=== PATIENT | male | born 1955 | race Caucasian/White ===

== ENCOUNTER → 2021-08-21 12:49 | Outpatient (CLI) | payer OTHER, SELFPAY ==
--- NOTE | ~2021-08-21 | MR_ITS ---
EXAMINATION: MR knee LT wo con DATE: 08/21/2021 13:49 INDICATION: Left knee pain. TECHNIQUE: Magnetic resonance imaging (MRI) of the left knee was performed without intravenous contra st. Sequences included coronal PD-weighted FSE, coronal PD-weighted FS FSE, sagittal T2-weighted FSE , sagittal PD-weighted FS FSE and axial PD weighted fat saturated FSE. COMPARISON: None. FINDINGS: Medial compartment: Complex tear of the posterior horn of the medial meniscus. Deep chondral ulceration with subtle regul arity at the articular cortex and mild subarticular edema-like signal changes at the medial tibial pl ateau and along the anterior to central weightbearing medial femoral condyle. Lateral compartment: Lateral meniscus is normal. Articular cartilage is normal. Patellofemoral compartment: Deep chondral fissuring without degenerative subchondral changes at the central to lateral aspect of the lateral patellar facet. Shallow chondral fissuring at the trochlear groove and inferior aspect of the medial trochlea. Ligaments and tendons: Anterior and posterior cruciate ligaments are normal. The medial collateral ligament and fibular taylor ateral ligament complex are normal. Mild distal quadriceps tendinopathy. Patellar tendon is normal. T he visualized medial and lateral hamstring tendons as well as the iliotibial band are normal. Fluid: Physiologic amount of fluid in the joint space. No loose osteochondral bodies identified. Small Yeh 's cyst. Osseous/other: Bone alignment is normal. No fracture or pathologic marrow replacing process. IMPRESSION: 1. Complex tear of the posterior horn of the medial meniscus. 2. 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 2. Mild osteoarthritis with moderate grade chondromalacia in the patellofemoral compartment. 3. Small Yeh's cyst. Reviewed, dictated and finalized at location A. IMPRESSION: 1. Complex tear of the posterior horn of the medial meniscus. 2. Moderate osteoarthritis with extensive high-grade chondromalacia in the medi al compartment. 2. Mild osteoarthritis with moderate grade chondromalacia in the patellofemoral compartment. 3. Small Yeh's cyst.
== END ==
PROVIDERS: PCP Orthopaedic Surgery; Visit Provider Orthopaedic Surgery
DX: S83.232A Complex tear of medial meniscus, current injury, left knee, initial encounter (principal); X58.XXXA Exposure to other specified factors, initial encounter; M17.12 Unilateral primary osteoarthritis, left knee; M71.22 Synovial cyst of popliteal space [Baker], left knee
CPT/HCPCS: 73721

== ENCOUNTER 2021-10-12 08:30 | Outpatient (CLI) | payer OTHER, SELFPAY ==
--- NOTE | 2021-10-12 09:39 | ECG_ITS ---
Measurements Intervals [place] Rate: 71 P: 60 [place]: 152 QRS: 62 QRSD: 94 T: 61 QT: 380 QTc: 415 Interpretive Statements SINUS RHYTHM WITH SINUS ARRHYTHMIA WITHIN NORMAL LIMITS COMPARED TO ECG 05/04/2019 15:17:47 SINUS ARRHYTHMIA NOW PRESENT Electronically Signed On 10-12-2021 16:23:34 CDT by Jeferson Madrigal M.D.
[2021-10-12 10:18] LABS: Basophils Absolute Auto 0.1 K/mm3 (0.0-0.1); Basophils Percent Auto 0.9 % (0.2-1.2); Eosinophils Absolute Auto 0.4 K/mm3 (0-0.3); Eosinophils Percent Auto 4.9 % (0-4.4); Hematocrit 42.6 % (42.0-52.0); Hemoglobin 14.3 g/dL (14.0-18.0); Immature Granulocyte Absolute 0.02 K/mm3 (0.00-0.031); Immature Granulocyte Percent A 0.3 % (0-0.5); Lymphocytes Absolute Auto 2.21 K/mm3 (0.9-3.2); Lymphocytes Percent Auto 27.7 % (18.3-44.2); Mean Corpuscular HGB Conc 33.6 g/dl (32-36); Mean Corpuscular Hemoglobin 32.5 pg (26-34); Mean Corpuscular Volume 96.8 fl (80-100); Monocytes Absolute Auto 0.7 K/mm3 (0.1-0.6); Monocytes Percent Auto 8.7 % (2.6-8.5); Neutrophils Absolute Auto 4.6 K/mm3 (1.3-6.7); Neutrophils Percent Auto 57.5 % (45.5-73.1); Platelet Count Result 271 k/mm3 (150-375)
== END 2021-10-12 08:31 | disposition home or self-care (01) ==
PROVIDERS: PCP Internal Medicine; Visit Provider Orthopaedic Surgery
DX: M17.12 Unilateral primary osteoarthritis, left knee (principal); I10 Essential (primary) hypertension; Z01.818 Encounter for other preprocedural examination
CPT/HCPCS: 36415; 85025; 87081; 93005

== ENCOUNTER 2021-10-26 02:28 | Day surgery (SDC) | payer OTHER, SELFPAY ==
[2021-10-12 08:39] VITALS: BMI 23.3
--- NOTE | 2021-10-12 08:59 | PC.NURSE ---
Report to the Outpatient Waiting Room, entrance under the green pavilion located off [facility], at time _0600 on date __10/26/21 . OR Time: __729 . - You and your visitor will be asked a series of questions to screen for COVID 19 for your protection. - Only one visitor is allowed at this time. - The patient visitor is requested to leave or wait in car when not with patient. - A mask is required within the hospital. Patients may have clear liquids (water, carbonated beverages, clear teas, apple juice) until 3 hours prior to surgery with a maximum of 20 ounces. - No food from midnight until time of surgery - Infants may have breast milk until 4 hours before surgery, infant formula 6 hours prior to surgery. - Children will be allowed to drink immediately following surgery. If applicable, please bring a bottle or sippy cup to assist with drinking. Juice, water, soda, and popsicles are readily available. For infants on formula, please bring formula the day of surgery. Pacifiers are allowed. Take the following medications with a SIP of water the morning of surgery: ___NIFEDIPINE Medications to discontinue per physician __EYE VITAMIN 3 DAYS PRE OP Date to take last dose__10/22/21 Please no make-up, nail turkmen, hairspray, perfume, deodorant, or body powder the day of surgery. No jewelry (including any body piercings) or valuables the day of surgery, leave them at home. Please take a shower or bath the night before, or the morning of, surgery with an antibacterial soap. Wear comfortable, loose fitting clothing. Children are encouraged to wear pajamas. - Jewelry must be removed prior to entering the operating room. Rings and piercings that are not removed may be cut off. - The hospital will not accept responsibility for valuables. - Please leave all valuables, including medications, at home the day of surgery. If you are going home after surgery, a licensed dinkey driver must drive you home. - NO public transportation without another adult. - We recommend that an adult stay with you for 24 hours following discharge. - We also recommend that you do not drive, make important decision, drink alcoholic beverages, or take any drugs that were not prescribed by your health care provider for at least 24 hours after your discharge time. For Pediatric surgeries, we recommend two adults accompany the child home (only one inside the building at this time). Follow any additional instructions given to you from your surgeon. If you or anyone in your household have experienced Covid symptoms in the past week, please notify your surgeon or the nurse liaison at the phone number below for possible testing. VERBAL AND WRITTEN instructions given to __PATIENT and asked if any additional questions and then verbalized understanding. Patient advised to call surgeon office or pre surgery nurse liaison [phone] if any additional questions.
[2021-10-12 09:21] VITALS: BP 161/83; PULSE 79; RESP 18; TEMP 37; O2SAT 96
[2021-10-26] VITALS (18 sets, daily range): BP systolic 107–154; BP diastolic 45–78; PULSE 78–109; RESP 14–19; TEMP 35.9–36.6; O2SAT 90–99
--- NOTE | ~2021-10-26 | XR_ITS ---
EXAMINATION: KNEE ONE/TWO VIEW-RIGHT DATE: 10/26/2021 10:43 INDICATION: Postoperative evaluation following left knee medial unicompartmental arthroplasty TECHNIQUE: Anteroposterior and lateral views of the left knee were obtained. COMPARISON: None. FINDINGS: Left knee medial unicompartmental arthroplasty appears well seated. No fractures identified. Expecte d postoperative subcutaneous and intra-articular gas. IMPRESSION: 1. Left knee medial unicompartmental arthroplasty negative for postoperative purposes. Reviewed, dictated and finalized at location A. IMPRESSION: 1. Left knee medial unicompartmental arthroplasty negative for postoperative pu rposes.
[2021-10-26] MEDS: ACETAMINOPHEN 500 MG TABLET 1000 MG PO ×3 (06:30→21:19)
[2021-10-26] MEDS: LACTATED RINGERS 1,000 ML 30 ML IV CONT ×2 (06:40→10:12)
--- NOTE | 2021-10-26 06:52 | WPDANESEPPF ---
Anes - Initial Pre Proc Eval Procedure: Operation Date: 10/26/21 07:30 Proposed Procedures p Left Unicompartmental Knee Replacement - Krish Moncada MD Date/Time: 10/26/21 06:52 Surgeon: Krish Moncada MD Pre Op Diagnosis: oa left knee Patient Data Age: 65 Gender: M Height: 1.8 m Weight: 79.7 kg Last Vital Signs Temp 36.5 C 10/26/21 06:47 Pulse 80 10/26/21 06:47 Resp 16 10/26/21 06:47 BP 128/65 10/26/21 06:47 Pulse Ox 99 10/26/21 06:47 O2 Del Method Room Air 10/26/21 06:47 Allergies Allergy/AdvReac Type Severity Reaction Status Date / Time aspirin Allergy Intermediate EYES Verified 10/26/21 06:21 SWELLING codeine Allergy Intermediate Nausea Verified 10/26/21 06:21 ephedrine Allergy Intermediate Hives Verified 10/26/21 06:21 pseudoephedrine Allergy Intermediate Hives Verified 10/26/21 06:21 Home Medications Medication Instructions Recorded Confirmed Type lisinopril 40 mg tablet 40 mg PO DAILY #90 tabs 11/24/20 10/26/21 Rx tadalafil 20 mg tablet (Cialis) 20 mg PO DAILY PRN sexual activity 03/06/21 10/26/21 Rx #30 tabs nifedipine 60 mg tablet,extended 60 mg PO DAILY #90 tabs 08/25/21 10/26/21 Rx release atorvastatin 40 mg tablet 40 mg PO DAILY #90 tabs 09/21/21 10/26/21 Rx omeprazole 20 mg capsule,delayed 20 mg PO DAILY #90 caps 09/21/21 10/26/21 Rx release meperidine 50 mg tablet 50 mg PO Q4-6H PRN pain #20 tabs 10/21/21 10/21/21 Rx rivaroxaban 10 mg tablet (Xarelto) 10 mg PO DAILY PE prophylaxis s/p 10/21/21 Rx surgery #42 tabs Patient hx anesthesia problems: none Family hx anesthesia problems: none Results Review: All pre-operative results and documents have been reviewed as part of the pre-operative evaluation. [facility] Past Medical History Medical History Essential (primary) hypertension Hyperlipidemia LDL goal <130 Obstructive sleep apnea CPAP Osteoarthritis of left knee Surgical History Surgical History History of hernia repair History of toe surgery Osteochondral defect of condyle of femur Status post arthroscopy of left knee (05/11/19) Family History Family History Mother Family history of malignant neoplasm of brain Patient's mother is Diabetes mellitus Father Family history of Parkinson's disease Patient's father is Hypertension Heart disease Other Family history of allergic disorder Family history of cardiovascular disease Social History Social History Social History: 6 pack/day Smoking packs per day: 2 Smoking cigarettes per day: 40.0 Years smoked: 15 Smoking pack-years: 30.00 Smoking status: Former smoker Tobacco type: cigarettes Smoking end date: 05/02/88 Alcohol intake: current Drinks per week: 20 Alcohol use details: BEER/COCKTAILS Substance use: never Substance use type: marijuana Last use: 10/12/21 Living arrangements: with family 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 Informed Consent: The patient's anesthetic plan and its attendant risks and benefits were discussed with the patient/family/POA. Questions were solicited and answers provided to the satisfaction o
[2021-10-26] MEDS: TRANEXAMIC ACID 1,000MG/ISO100 1,000 MG/100 ML BAG 200 MG IVPB (07:02)
[2021-10-26] MEDS: SCOPOLAMINE 1.5 MG PATCH TRANSDERM (07:03)
--- NOTE | 2021-10-26 07:26 | WPDHPUPDATE1 ---
History and Physical Update Update Date/Time: 10/26/21 07:26 History and Physical has been reviewed, including an updated exam of the patient. There are NO changes in the patient's condition. Risks, benefits, and alternatives have been discussed and questions answered. Patient agrees to proceed with procedure.
[2021-10-26] MEDS: ceFAZolin 2 GM/D5W 50 ML 2 GM/50 ML BAG IVPB ×3 (07:32→23:34)
--- NOTE | 2021-10-26 07:33 | WPDANESPNB ---
Anes - Peripheral Nerve Block Date/Time: 10/26/21 07:33 I have discussed with the patient/family/POA the placement of a peripheral nerve block for post-operative pain management, including associated risks, benefits, complications, and side effects. Alternative methods of post-operative analgesia were detailed. Questions were solicited and answers provided to the satisfaction of the patient/family/POA. Time-Out: A pre-procedural Time-Out was completed immediately before starting the procedure and confirmed: Patient Identification, Site, Procedure, Patient Position and the Availability of Requisite Equipment. Clinical Indications: Acute post-operative pain management requested by the operative surgeon. Nerve Block Insertion Note Anes-nerve block: adductor canal left Patient position: supine Skin prep: chlorhexidine Needle: 22 gauge, stimulating, insulated echogenic needle. Needle length: 80 mm Technique: ultrasound Technique comment: mid2mg [id number] Injectate: bupivacaine 0.5% with epi 5 mcg/ml (30ml no epi) Observations: tolerated well Complications: none Procedure start time:: 720 Procedure end time:: 727
[2021-10-26] MEDS: ceFAZolin SODIUM 1 GM VIAL IV PUSH (09:31)
--- NOTE | 2021-10-26 10:31 | P.OP_ITS ---
Procedure Note - Detailed Date of Procedure 10/26/21 Pre-op Diagnosis oa left knee Post-op Diagnosis Same Procedure Performed Left knee knee compartment replacement Surgeon Krish Moncada MD Agricultural Extension Educator Emil Gonzales Anesthesia General and Regional Description of Procedure The patient was identified and the proper site identified. In the preop holding area the anesthesia team performed a left lower extremity block. He was then taken to the operating room and transferred to the OR table placing him supine taking care to pad his torso and extremities. After general anesthetic induction and intubation. a nonsterile tourniquet was placed high on the left thigh. The extremity was positioned, prepped, and draped in the usual sterile fashion. The extremity was exsanguinated and the tourniquet was inflated to 300 mmHg remaining up for approximately 72 minutes. An anterior midline incision was made and sharp dissection carried down through the subcutaneous tissue to the extensor mechanism. A modified medial parapatellar arthrotomy was performed. The articular and meniscal cartilage of the lateral compartment was inspected and noted to be in excellent shape. Anterior and posterior cruciate ligaments were in continuity. There were extensive degenerative changes medial compartment and milder patellofemoral changes. The marginal osteophytes were removed from the notch and the medial aspect of the medial femoral condyle, and the remaining meniscal tissue was removed. The femur was sized to a large. With the appropriate spoon and tibial guide, a tibial resection was made. This was sized to A. Using the mill, the flexion and extension gaps were balanced. A trial reduction was undertaken. The range of motion of the knee was noted to be from full extension to 120 ? of flexion with excellent stability through range of motion. The polyethylene insert tracked nicely. The trial components were removed. The real large femur and size A tray for the left knee were cemented into place. The knee was held in about 30? of flexion while the cement cured. The tourniquet was released and excess cement was removed from the joint. Hemostasis was carried out. The knee was flushed with a copious amount of irrigation. After trialing, the appropriate real size four insert for the femoral component was inserted and the stability again assessed. The knee was noted to be stable as it was taken through range of motion. The periarticular tissues were injected with 40 milliliters of 0.5% plain Marcaine and a 3 minutes Betadine bath of the wound was carried out. Surgicel powder was used for additional hemostasis both the deep and superficial to the extensor mechanism. The extensor mechanism was repaired with #2 Vicryl and 0 looped PDS suture, the subcu with 3-0 Monocryl and 3-0 Quill with tissue adhesive the skin. A sterile dressing was applied. The patient tolerated the procedure well, was awakened, extubated, and taken to recovery room in stable condition. Estimated Blood Loss -100.0 Tourniquet Time 72 Drains No Packing No Pathology None sent Complications No immediate complications Condition Stable Disposition PACU
[2021-10-26] MEDS: fentaNYL CITRATE INJ (*CRX) 100 MCG/2 ML VIAL 25 MCG IV PUSH (10:56)
--- NOTE | 2021-10-26 12:27 | ADMGEN ---
This patient, Jeferson Comer, was admitted to Medical Room 243-01. Patient/family oriented to hospital policies and general routines including ID bracelet, bed and alarms, visiting hours, pain management, procedures, bathroom and other care routines, personal items, smoking policy, room service/diet, and visiting hours. Information on how to activate the Rapid Response Team has been discussed. Patient/Family are encouraged to report perceived risks to care and to ask questions if they do not understand what they are told or what they should do. Report received from LUIS Zamora
[2021-10-26] MEDS: SODIUM CHLORIDE 0.9% IV 1,000 ML 125 ML IV CONT (12:30)
--- NOTE | 2021-10-26 13:05 | PC.NURSE ---
1245 pt back from surgery on o2 4l with sat 92%. Pt drowsy but wakes up to voice. Karla Alston CYBER CRIME INVESTIGATOR notified of medical management consult and notified of pt requiring 4l of 02 after surgery.
--- NOTE | 2021-10-26 15:24 | PM.IMCN ---
Assessment and Plan Assessment and plan (1) Status post arthroscopy of left knee: Onset Date: 05/11/19 Code(s): Z98.890 - Other specified postprocedural states Status: Acute Assessment and Plan: Postop day 0 Cefazolin 2 g x 3 bags Pain medication: Celebrex 200 mg p.o. b.i.d. Tylenol 1000 mg p.o. q.8, Demerol 50mg PO Q4H PRN Zofran for nausea vomiting Postop care per Ortho Xarelto 10 mg p.o. daily for DVT PT and OT (2) Arthritis of left knee: Code(s): M17.12 - Unilateral primary osteoarthritis, left knee Status: Chronic Assessment and Plan: See above (3) Obstructive sleep apnea: Code(s): G47.33 - Obstructive sleep apnea (adult) (pediatric) Status: Acute Assessment and Plan: Continue BiPAP CPAP to home setting (4) Hypertension: Code(s): I10 - Essential (primary) hypertension Status: Acute Assessment and Plan: Current blood pressure 126/77 Continue home lisinopril, nifedipine Trend blood pressure Adjust therapy as indicated HPI Data of Consult Consult date: 10/26/21 Requesting Physician: Krish Moncada MD Primary Care Provider: Jonathan Kulkarni MD Consult Narrative Reason for consult: Medical management Narrative: 10/26/21 1530 Jeferson Comer is a 65 year old male with past medical history of hyperlipidemia, GERD, hypertension who was scheduled for an elective total left knee replacement with Dr. Graves today. Patient has had pain for many years and NSAIDs were not doing well. Patient is signed to get the knee replacement. Currently patient feels okay and denies any chest pain, shortness a breath, nausea, vomiting, diarrhea, constipation, weakness or fatigue. Pain is currently patient today8-9/10 and was able to get up to the chair. He also stated that he is only tolerable to Demerol. He also stated that he was having some numbness, but it seems to be resolved at this time. Hospitalist service is being consulted for medical management. Review of Systems Review of Systems: All systems reviewed & are unremarkable except as noted in HPI and below PMFSH Past Medical History Medical History Essential (primary) hypertension Hyperlipidemia LDL goal <130 Obstructive sleep apnea CPAP Osteoarthritis of left knee Surgical History Surgical History History of hernia repair History of toe surgery Osteochondral defect of condyle of femur Status post arthroscopy of left knee (05/11/19) Family History Family History Mother Family history of malignant neoplasm of brain Patient's mother is Diabetes mellitus Father Family history of Parkinson's disease Patient's father is Hypertension Heart disease Other Family history of allergic disorder Family history of cardiovascular disease Social History Social History (Updated 10/26/21 @ 15:50 by SILVIA Rg) Social History: Patient lives with his , who will be his surrogate. 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 he does admit to 3 beers and 3 cocktail. He wishes to be a Full code at this time. 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
[2021-10-26] MEDS: CELECOXIB 200 MG CAPSULE PO (16:43)
[2021-10-26] MEDS: SENNA/DOCUSATE SODIUM TABLET 2 TAB PO (16:43)
[2021-10-27 01:37] VITALS: BP 148/80; PULSE 80; RESP 16; TEMP 36.9; O2SAT 97
[2021-10-27 01:45] VITALS: PULSE 72; RESP 16; O2SAT 97
[2021-10-27 05:17] VITALS: BP 140/69; PULSE 66; RESP 16; TEMP 36.5; O2SAT 97
[2021-10-27 05:43] LABS: Basophils Absolute Auto 0.1 K/mm3 (0.0-0.1); Basophils Percent Auto 0.4 % (0.2-1.2); Eosinophils Percent Auto 0.1 % (0-4.4); Hematocrit 34.3 % (42.0-52.0); Hemoglobin 11.9 g/dL (14.0-18.0); Immature Granulocyte Absolute 0.04 K/mm3 (0.00-0.031); Immature Granulocyte Percent A 0.3 % (0-0.5); Lymphocytes Absolute Auto 1.74 K/mm3 (0.9-3.2); Lymphocytes Percent Auto 14.3 % (18.3-44.2); Mean Corpuscular HGB Conc 34.7 g/dl (32-36); Mean Platelet Volume 9.6 fl (7.4-10.4); Monocytes Absolute Auto 1.4 K/mm3 (0.1-0.6); Monocytes Percent Auto 11.8 % (2.6-8.5); Neutrophils Absolute Auto 8.9 K/mm3 (1.3-6.7); Neutrophils Percent Auto 73.1 % (45.5-73.1); Platelet Count Result 201 k/mm3 (150-375); Red Blood Count 3.61 M/mm3 (4.6-6.20); Red Cell Distribution Width 12.7 % (11.5-14.5); White Blood Count 12.2 K/mm3 (4.5-10.0)
[2021-10-27 05:50] LABS: Anion Gap 6 mmol/L (8-16); Blood Urea Nitrogen 19 mg/dL (9-20); Calcium 8.1 mg/dL (8.4-10.2); Carbon Dioxide 22 mmol/L (22-30); Chloride 108 mmol/L (98-107); Estimated CRCL calculation 69 ml/min; Estimated Glomerular Filt Rate > 60; Glucose 112 mg/dL (65-110); Magnesium 2.1 mg/dL (1.6-2.3); Sodium 136 mmol/L (137-145)
[2021-10-27] MEDS: ACETAMINOPHEN 500 MG TABLET 1000 MG PO (05:53)
--- NOTE | 2021-10-27 07:28 | PM.DS ---
DS: Admitting Diagnosis Discharge Date October 27, 2021 Admitting Diagnosis Osteoarthritis left knee DS: Discharge Diagnosis Discharge Diagnosis (1) S/P left unicompartmental knee replacement: Code(s): Z96.652 - Presence of left artificial knee joint Status: Acute Assessment and Plan: Plan discharge home today. Follow-up will be in two weeks. Instructions reviewed in detail with patient today and his yesterday. DS: Summary Hospital Course Reason for hospitalization: Observation after outpatient procedure. Hospital Course: Following the patient's surgery he was admitted to the floor. He had therapy initiated. Has made good progress and is going to be discharged home postop day one Status at Discharge Functional status at discharge: uses cane/walker Overall status at discharge: patient is not back to baseline Time Spent with Patient Time attestation: Total time spent providing and/or coordinating discharge services: Exam Const: General: cooperative, alert and awake Orientation/consciousness: patient oriented x3 HENMT: Head: normal to inspection Ears: hearing grossly normal bilaterally Resp: Effort & Inspection: able to speak in complete sentences GI: Inspection: non-distended Neuro: General: patient oriented x3 Extrem: Other: Exam of the left knee shows very little swelling. Wound is dry. Grossly neurovascular status left lower extremity intact however exam limited somewhat secondary to discomfort. Calves negative. Psych: Mental Status: mental status grossly normal DS: Data Data Completed and Pending Labs on day of discharge: Labs from last 24 hours 10/27/21 10/27/21 10/26/21 05:03 05:03 06:31 WBC 12.2 H RBC 3.61 L Hgb 11.9 L Hct 34.3 L MCV 95.0 MCH 33.0 MCHC 34.7 RDW 12.7 Plt Count 201 MPV 9.6 Immature Gran % (Auto) 0.3 Neut % (Auto) 73.1 Lymph % (Auto) 14.3 L [place] % (Auto) 11.8 H Eos % (Auto) 0.1 Baso % (Auto) 0.4 Lymph # (Auto) 1.74 [place] # (Auto) 1.4 H Eos # (Auto) 0.0 Baso # (Auto) 0.1 Abs Immat Gran (auto) 0.04 H Absolute Neuts (auto) 8.9 H Absolute Nucleated RBC 0.0 Nucleated RBC % 0.0 Sodium 136 L Potassium 4.0 Chloride 108 H Carbon Dioxide 22 Anion Gap 6 L BUN 19 Creatinine 1.00 Estim Creat Clear Calc 69 Estimated GFR > 60 Glucose 112 H Calcium 8.1 L Magnesium 2.1 Blood Type A Positive Antibody Screen Negative Labs reviewed. Discharge Plan Discharge Patient Disposition: Home, Self-Care Discharge Instructions: Remove the Scopolamine patch that was placed behind your left ear in 72 hours or less. Wash your hands after touching. 3 times daily for 20 minutes each time, reclining in bed with ice packs over the incision and a pillow underneath the calf of the affected leg, not under the knee. Your wound is glued so it is okay to remove the dressing, get into the shower and get the wound wet starting tomorrow. Be sure to read through all the information that came from a my office and the hospital. Most of the answers you will need can be found that material. Call the office with any questions that you cannot find answers to, or concerns you may have. The Xarelto prescription is for six weeks. After that, you do not need to use any blood thinner. Please call [facility] at as soon as possible to arrange for/verify your follow-up appointment to be seen in 2 weeks. Also, call the office with any orthopedic/surgical related questions prior to follow-up. Be sure to get up and move around several times daily but do not overdo it. Take the arthritis formula Tylenol 650 mg tablet on an 8 hour schedule. A good 8 hour schedule is: 6:00 a.m., 2:00 p.m., 10:00 p.m. you may take the prescribed pain medication along with the Tylenol; it is not to be taken instead of the Tylenol. I would like for you to take the Tylenol on
[2021-10-27] MEDS: CELECOXIB 200 MG CAPSULE PO (08:31)
[2021-10-27] MEDS: ceFAZolin 2 GM/D5W 50 ML 2 GM/50 ML BAG IVPB (08:31)
[2021-10-27] MEDS: NIFEdipine 30 MG TAB.ER.24 60 MG PO (08:32)
[2021-10-27] MEDS: PANTOPRAZOLE 40 MG TABLET PO (08:32)
[2021-10-27] MEDS: RIVAROXABAN 10 MG TABLET PO (08:32)
[2021-10-27] MEDS: ATORVASTATIN 40 MG TABLET PO (08:32)
[2021-10-27] MEDS: SENNA/DOCUSATE SODIUM TABLET 2 TAB PO (08:32)
[2021-10-27] MEDS: polyethylene glycoL 3350 17 GM POWD.PACK PO (08:33)
[2021-10-27] MEDS: lisinopriL 20 MG TABLET 40 MG PO (08:33)
--- NOTE | 2021-10-27 08:45 | PM.IMPN ---
Progress Note: A&P Assessment and Plan (1) Status post arthroscopy of left knee: Onset Date: 05/11/19 Code(s): Z98.890 - Other specified postprocedural states Status: Acute Assessment and Plan: Postop day 1 Cefazolin 2 g x 3 bags Pain medication: Celebrex 200 mg p.o. b.i.d. Tylenol 1000 mg p.o. q.8, Demerol 50mg PO Q4H PRN Zofran for nausea vomiting Postop care per Ortho Xarelto 10 mg p.o. daily for DVT PT and OT (2) Arthritis of left knee: Code(s): M17.12 - Unilateral primary osteoarthritis, left knee Status: Chronic Assessment and Plan: See above (3) Obstructive sleep apnea: Code(s): G47.33 - Obstructive sleep apnea (adult) (pediatric) Status: Acute Assessment and Plan: Continue BiPAP CPAP to home setting (4) Hypertension: Code(s): I10 - Essential (primary) hypertension Status: Acute Assessment and Plan: Current blood pressure 140/69 Continue home lisinopril, nifedipine Trend blood pressure Adjust therapy as indicated (5) Peripheral neuropathy: Code(s): G62.9 - Polyneuropathy, unspecified Status: Acute Assessment and Plan: Complaints of numbness and tingling on the left toes Will start gabapentin for control Seems to be getting better Time Spent With Patient Time with patient: Greater than 35 minutes Subjective Date/time seen: 10/27/21 0845 Interval history: 10/27/21844 Patient seems to be doing well today. He was up walking around. He was doing okay on his feet. He denies any chest pain, shortness a breath, nausea, vomiting, diarrhea, constipation. Patient did say that he was having a little bit as chills and shivers however he does feel better today. Pain is a 2/10 and he states that he still has little bit numbness in the left toe however it is barely anything compared to yesterday. 10/26/21 2530 Jeferson Comer is a 65 year old male with past medical history of hyperlipidemia, GERD, hypertension who was scheduled for an elective total left knee replacement with Dr. Graves today.? Patient has had pain for many years and NSAIDs were not doing well.? Patient is signed to get the knee replacement.? Currently patient feels okay and denies any chest pain, shortness a breath, nausea, vomiting, diarrhea, constipation, weakness or fatigue.? Pain is currently patient today8-01/09 and was able to get up to the chair.? He also stated that he is only tolerable to Demerol.? He also stated that he was having some numbness, but it seems to be resolved at this time.? Review of Systems Review of Systems: All systems reviewed & are unremarkable except as noted in HPI and below Exam Const: General: cooperative, healthy appearing, no acute distress, well developed, alert and awake Nutritional Appearance: well nourished Orientation/consciousness: patient oriented x3 Limitations: no limitations HENMT: Head: normal to inspection Ears: hearing grossly normal bilaterally General nose exam: Normal external nose present Mouth: Yes Normal oral and palatal mucosa present, Yes lip normal and Yes tongue normal Teeth and gingiva: abnormal tooth and associated gingiva and poor dentition Eyes: General: appearance normal, both eyes and all related structures Neck: Neck: normal visual inspection, full ROM, trachea midline and supple Chest: Chest palpation & inspection: normal inspection of the chest Resp: Effort & Inspection: normal respiratory effort and able to speak in complete sentences Auscultation: clear to auscultation bilaterally Cardio: Jugular venous distension: no JVD Rate: regular rate Rhythm: regular rhythm Heart sounds: S1 normal heart sound present and S2 normal heart sound present Peripheral pulses: Peripheral pulses 2+ throughout GI: Inspection: normal to inspection Auscultation: normal bowel sounds Skin: General skin exam: normal color and no
[2021-10-27 09:37] VITALS: BP 149/74; PULSE 57; RESP 18; TEMP 36.1; O2SAT 97
--- NOTE | 2021-10-27 11:40 | WPDANESPN ---
Anes - Prog Note Post-Op Date/Time: 10/27/21 11:40 Cardiovascular status: normal Respiratory status: normal Airway patency: baseline Mental status: baseline Post-Op hydration status: normal Vital Signs: Last Vital Signs Temp 36.1 C L 10/27/21 09:37 Pulse 57 L 10/27/21 09:37 Resp 18 10/27/21 09:37 BP 149/74 H 10/27/21 09:37 Pulse Ox 97 10/27/21 09:37 O2 Del Method Room Air 10/27/21 08:00 O2 Flow Rate 4 10/26/21 12:33 Pain Score (VAS): 07/09 I/O: Intake & Output 07/0910/26/21 10/27/21 10/27/21 23:59 07:59 15:59 Intake Total 50 450 580 Output Total 800 Balance -750 450 580 Laboratory Tests 10/27/21 05:03 10/27/21 05:03 10/27/21 10/27/21 05:03 05:03 WBC 12.2 H RBC 3.61 L Hgb 11.9 L Hct 34.3 L MCV 95.0 MCH 33.0 MCHC 34.7 RDW 12.7 Plt Count 201 MPV 9.6 Immature Gran % (Auto) 0.3 Neut % (Auto) 73.1 Lymph % (Auto) 14.3 L [place] % (Auto) 11.8 H Eos % (Auto) 0.1 Baso % (Auto) 0.4 Lymph # (Auto) 1.74 [place] # (Auto) 1.4 H Eos # (Auto) 0.0 Baso # (Auto) 0.1 Abs Immat Gran (auto) 0.04 H Absolute Neuts (auto) 8.9 H Absolute Nucleated RBC 0.0 Nucleated RBC % 0.0 Sodium 136 L Potassium 4.0 Chloride 108 H Carbon Dioxide 22 Anion Gap 6 L BUN 19 Creatinine 1.00 Estim Creat Clear Calc 69 Estimated GFR > 60 Glucose 112 H Calcium 8.1 L Magnesium 2.1 Post-procedural complaints: none Patient Feedback: Patient satisfied with anesthetic care.
== END 2021-10-27 12:46 | disposition home or self-care (01) ==
LOC: ANHSURGERY 06:56 → ANH2MED 11:53
PROVIDERS: PCP Internal Medicine; Visit Provider Orthopaedic Surgery
PROC: (CPT 27446; principal; 2021-10-26 07:30)
DX: M17.12 Unilateral primary osteoarthritis, left knee (principal); G62.9 Polyneuropathy, unspecified; G89.18 Other acute postprocedural pain; G47.33 Obstructive sleep apnea (adult) (pediatric); I10 Essential (primary) hypertension; E78.5 Hyperlipidemia, unspecified; Z87.891 Personal history of nicotine dependence; F12.90 Cannabis use, unspecified, uncomplicated
CPT/HCPCS: 27446; 64447; 36415; 73560; 80048; 83735; 85025; 86850; 86900; 86901; 87081; 93005; 97110; 97116; 97161; 97165; 97530; 97535; A9270; C1713; C1776; J0171; J0690; J1100; J1170; J2250; J2270; J2370; J2405; J2704; J2795; J3010; J7030; J7120

== ENCOUNTER 2021-11-05 14:47 | Emergency (ER) | payer OTHER, SELFPAY ==
--- NOTE | ~2021-11-05 | XR_ITS ---
EXAMINATION: XR knee LT 3V DATE: 11/05/2021 17:04 INDICATION: Postoperative right knee pain TECHNIQUE: Four views of the left knee were obtained on five radiographs. COMPARISON: 10/26/2021 FINDINGS: There are changes of unicompartmental arthroplasty in the medial left knee. Alignment is un changed. There is a large joint effusion. There is increased anterior soft tissue swelling of the kne e. There is moderate osteoarthritis of the patellofemoral compartment. IMPRESSION: 1. Postsurgical changes with large knee joint effusion and increased anterior soft tissue swelling of the knee. Reviewed, dictated and finalized at location B. IMPRESSION: 1. Postsurgical changes with large knee joint effusion and increased anterior s oft tissue swelling of the knee.
--- NOTE | ~2021-11-05 | CT_ITS ---
EXAMINATION: CT abdomen pelvis w con INDICATION: Right upper quadrant pain TECHNIQUE: Computed tomographic images of the abdomen and pelvis were obtained after the administrati on of 100 cc of Omnipaque 300 intravenous contrast. The dose-length product (DLP) was 422.41 mGy-cm. Automated exposure control and iterative reconstruction technique were employed. COMPARISON: None available FINDINGS: Minimal dependent atelectasis is present in the lung bases. The heart size is normal. The l iver, spleen, pancreas, gallbladder, and adrenal glands are normal. There is a [address] one in the upper pole of the left kidney. Hypoattenuating lesions in the kidneys, measuring up to 5 m m on the left, are too small to characterize but likely represent cysts. There is calcified atheroscl erosis of the aorta and many of the other arteries. There is colonic diverticulosis. There is [place] fat stranding adjacent to the distal sigmoid colon no free intraperitoneal gas is identified. Ther e is no perisigmoid abscess. There is severe lumbar spondylosis. IMPRESSION: 1. Acute sigmoid diverticulitis, uncomplicated. Reviewed, dictated and finalized at location B.
[2021-11-05 14:52] VITALS: BP 163/68; PULSE 100; RESP 20; TEMP 36.6; O2SAT 100
--- NOTE | 2021-11-05 14:56 | ECG_ITS ---
Measurements Intervals [place] Rate: 92 P: 53 OR: 135 QRS: 58 QRSD: 90 T: 75 QT: 357 QTc: 443 Interpretive Statements SINUS RHYTHM BASELINE ARTIFACT- I, II, III, AVR, AVL NORMAL ECG Electronically Signed On 11-05-2021 15:17:24 CDT by Dawood Luna D.O.
--- NOTE | 2021-11-05 15:36 | ED.NAVMDI ---
HPI - Nausea/Vomiting/Diarrhea General Chief complaint: Nausea/Vomiting/Diarrhea Stated complaint: fever, chills, vomiting Time Seen by Provider: 11/05/21 15:15 History of Present Illness HPI Narrative: 65-year-old male presents to the emergency room for gradual onset of abdominal cramping and associated with nausea and vomiting. Patient states that he has had multiple episodes of nonbloody and bilious vomiting since this morning. Reports abdominal pain is in the right upper quadrant and does not radiate. Denies fever patient states that he has had total left knee replacement last week. Related Data Allergies Allergy/AdvReac Type Severity Reaction Status Date / Time aspirin Allergy Intermediate EYES Verified 11/05/21 15:26 SWELLING codeine Allergy Intermediate Nausea Verified 11/05/21 15:26 ephedrine Allergy Intermediate Hives Verified 11/05/21 15:26 pseudoephedrine Allergy Intermediate Hives Verified 11/05/21 15:26 Review of Systems Review of Systems: CONSTITUTIONAL: Denies fever, chills, or sweats. EYES: Denies visual changes, redness, or discharge. ENT: Denies rhinorrhea, congestion, sore throat, or otalgia. CARDIOVASCULAR: Denies chest pain, palpitations, or edema. RESPIRATORY: Denies cough or dyspnea. GASTROINTESTINAL: Reports abdominal pain, and nausea/vomiting, GENITOURINARY: Denies dysuria or hematuria. SKIN: Denies rash or itching. MUSCULOSKELETAL: Denies back pain, joint pain, or myalgia. NEUROLOGIC: Denies headache, numbness, dizziness, or weakness. PSYCHIATRIC: Denies anxiety or depression. [facility] Past Medical History Medical History Essential (primary) hypertension Hyperlipidemia LDL goal <130 Obstructive sleep apnea CPAP Osteoarthritis of left knee Surgical History Surgical History History of hernia repair History of toe surgery Osteochondral defect of condyle of femur S/P left unicompartmental knee replacement October 26, 2021 Status post arthroscopy of left knee (05/11/19) Family History Family History Mother Family history of malignant neoplasm of brain Patient's mother is Diabetes mellitus Father Family history of Parkinson's disease Patient's father is Hypertension Heart disease Other Family history of allergic disorder Family history of cardiovascular disease Social History Social History Social History: Patient lives with his , who will be his surrogate. 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 he does admit to 3 beers and 3 cocktail. He wishes to be a Full code at this time. Smoking packs per day: 2 Smoking cigarettes per day: 40.0 Years smoked: 15 Smoking pack-years: 30.00 Smoking status: Former smoker Tobacco type: cigarettes Smoking end date: 05/02/88 Alcohol intake: current Drinks per week: 20 Alcohol use details: BEER/COCKTAILS Substance use: current Substance use type: marijuana Last use: 10/12/21 Additional occupation/education comments: [employer] Gender identity (if verbalized by the patient): Male Sexual Orientation (if Verbalized by the Patient): Straight or Heterosexual Spiritual care concerns: Yes Agree to blood products: Yes Exam Narrative: GENERAL: Well-appearing, well-nourished, no physical limitations, and in no acute distress. HEAD: Normocephalic, atraumatic. EYES: Conjunctivae normal, PERRLA and EOMI. CHEST: Clear to auscultation. No respiratory distress. No wheezes rales or rhonchi. No tenderness. HEART: Regular rate and rhythm. No murmur heard. Normal peripheral pulses. ABDOMEN: Soft, right upper quadrant tenderness, nondistended, normal active bowel sounds. EXTREMITIES: Normal range of motion. No edema. No clubbing or cyanosis. left knee: Well approximated linear surgical w
[2021-11-05] MEDS: ONDANSETRON INJ 4 MG/2 ML VIAL IV PUSH (15:47)
[2021-11-05] MEDS: SODIUM CHLORIDE 0.9% IV 1,000 ML 999 ML IV CONT ×2 (15:48→17:45)
[2021-11-05 15:57] LABS: Basophils Absolute Auto 0.1 K/mm3 (0.0-0.1); Basophils Percent Auto 0.4 % (0.2-1.2); Eosinophils Percent Auto 0.1 % (0-4.4); Hematocrit 38.4 % (42.0-52.0); Hemoglobin 13.1 g/dL (14.0-18.0); Immature Granulocyte Absolute 0.11 K/mm3 (0.00-0.031); Immature Granulocyte Percent A 0.6 % (0-0.5); Lymphocytes Absolute Auto 1.71 K/mm3 (0.9-3.2); Lymphocytes Percent Auto 9.5 % (18.3-44.2); Mean Corpuscular HGB Conc 34.1 g/dl (32-36); Mean Corpuscular Hemoglobin 32.2 pg (26-34); Mean Corpuscular Volume 94.3 fl (80-100); Mean Platelet Volume 9.2 fl (7.4-10.4); Monocytes Absolute Auto 1.3 K/mm3 (0.1-0.6); Monocytes Percent Auto 7.4 % (2.6-8.5); Neutrophils Absolute Auto 14.8 K/mm3 (1.3-6.7); Platelet Count Result 438 k/mm3 (150-375); Red Blood Count 4.07 M/mm3 (4.6-6.20); Red Cell Distribution Width 12.3 % (11.5-14.5); White Blood Count 18.1 K/mm3 (4.5-10.0)
[2021-11-05 16:07] LABS: Lactic Acid Reflex 1.3 mmol/L (0.7-2.0)
[2021-11-05 16:46] LABS: Alanine Aminotransferase 32 U/L (6-50); Albumin Level 4.3 g/dL (3.5-5.1); Alkaline Phosphatase 221 U/L (38-126); Anion Gap 11 mmol/L (8-16); Aspartate Amino Transferase 23 U/L (17-59); Bilirubin,Total 0.9 mg/dL (0.2-1.3); Blood Urea Nitrogen 19 mg/dL (9-20); Calcium 9.2 mg/dL (8.4-10.2); Carbon Dioxide 21 mmol/L (22-30); Chloride 107 mmol/L (98-107); Estimated CRCL calculation 69 ml/min; Estimated Glomerular Filt Rate > 60; Glucose 132 mg/dL (65-110); Lipase 55 U/L (23-300); Potassium 3.9 mmol/L (3.4-5.0); Sodium 139 mmol/L (137-145)
[2021-11-05 17:05] LABS: SARS-CoV-2 RNA PCR Negative
[2021-11-05] MEDS: diphenhydrAMINE HCl INJ 50 MG/ML VIAL 25 MG IV PUSH (17:41)
[2021-11-05] MEDS: METOCLOPRAMIDE HCL INJ 10 MG/2 ML VIAL IV PUSH (17:41)
[2021-11-05] MEDS: metroNIDAZOLE 500 MG/ISO 100ML 500 MG/100 ML BAG 100 MG IVPB (17:46)
[2021-11-05 18:51] VITALS: BP 148/84; PULSE 94; RESP 16; O2SAT 99
== END 2021-11-05 19:15 | disposition home or self-care (01) ==
PROVIDERS: Emergency Provider Nurse Practitioner Family; PCP Internal Medicine
DX: K57.32 Diverticulitis of large intestine without perforation or abscess without bleeding (principal); Z20.822 Contact with and (suspected) exposure to COVID-19; I10 Essential (primary) hypertension; E78.5 Hyperlipidemia, unspecified; G47.33 Obstructive sleep apnea (adult) (pediatric); M17.12 Unilateral primary osteoarthritis, left knee; Z87.891 Personal history of nicotine dependence; Z96.652 Presence of left artificial knee joint
CPT/HCPCS: 36415; 73562; 74177; 80053; 83605; 83690; 85025; 93005; 96361; 96365; 96367; 96375; 99284; C9803; J0696; J1200; J2405; J2765; J7030; Q9967; U0003; U0005

== ENCOUNTER 2022-02-10 09:22 | Emergency (ER) | payer OTHER, SELFPAY ==
[2022-02-10 09:26] VITALS: BP 132/61; PULSE 96; RESP 19; TEMP 36.7; O2SAT 99
--- NOTE | 2022-02-10 09:52 | ED.GIBLEED ---
HPI - GI Bleed General Chief complaint: GI Bleed Stated complaint: pcp sent - blood in stool x 6 days Time Seen by Provider: 02/10/22 09:30 Source: patient and RN notes reviewed Mode of arrival: ambulatory Limitations: no limitations History of Present Illness HPI Narrative: This is a 66 year old male who presents for evaluation of rectal bleeding. He states he has 3-4 bowel movements per day. He states his first bowel movement every day is firm, and he has noticed bright red blood in toile each time. His other bowel movements afterwards after soft to watery, but he does not see blood after those bowel movements. He reports intermittent mid abdominal pain that occurs in the morning before his bowel movements, and it improves. He reports a diagnosis of a GI issue but he has not followed with GI in decades. He reports normal colonoscopy 2 years ago. He denies fever, chills, nausea, vomiting or dizziness. Related Data Allergies Allergy/AdvReac Type Severity Reaction Status Date / Time aspirin Allergy Intermediate EYES Verified 02/10/22 09:31 SWELLING ephedrine Allergy Intermediate Hives Verified 02/10/22 09:31 pseudoephedrine Allergy Intermediate Hives Verified 02/10/22 09:31 Review of Systems Review of Systems: All systems reviewed & are unremarkable except as noted in HPI and below PMFSH Past Medical History Medical History Essential (primary) hypertension Hyperlipidemia LDL goal <130 Obstructive sleep apnea CPAP Osteoarthritis of left knee Surgical History Surgical History History of hernia repair History of toe surgery Osteochondral defect of condyle of femur S/P left unicompartmental knee replacement October 26, 2021 Status post arthroscopy of left knee (05/11/19) Family History Family History Mother Family history of malignant neoplasm of brain Patient's mother is Diabetes mellitus Father Family history of Parkinson's disease Patient's father is Hypertension Heart disease Other Family history of allergic disorder Family history of cardiovascular disease Social History Social History Social History: Patient lives with his , who will be his surrogate. 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 he does admit to 3 beers and 3 cocktail. He wishes to be a Full code at this time. 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 [employer] Gender identity (if verbalized by the patient): Male Sexual Orientation (if Verbalized by the Patient): Straight or Heterosexual Spiritual care concerns: Yes Agree to blood products: Yes Exam Const: General: no acute distress and alert Nutritional Appearance: well nourished Orientation/consciousness: patient oriented x3 Limitations: no limitations HENMT: Head: normal to inspection Eyes: EOM: EOMs intact bilaterally Resp: Effort & Inspection: normal respiratory effort Auscultation: clear to auscultation bilaterally Cardio: Rate: regular rate Rhythm: regular rhythm Heart sounds: no murmurs GI: GI Palp: Yes Soft to palpation, Yes Tenderness to palpation present (GI), No Guarding due to palpation present (GI) and No Rigid due to palpation Auscultation: normal bowel sounds Other: small external hemorrhoids present, but no bleeding, stool is brown and heme negative Skin: General skin exam: normal color Rashes: no rashes Wounds: no wounds Neuro: Gener
[2022-02-10 10:06] VITALS: BP 120/60; BP 127/75; PULSE 81; PULSE 97
[2022-02-10 10:07] VITALS: BP 146/76; PULSE 85; RESP 15; O2SAT 97
[2022-02-10 10:08] LABS: Basophils Absolute Auto 0.1 K/mm3 (0.0-0.1); Basophils Percent Auto 1.3 % (0.2-1.2); Eosinophils Absolute Auto 1.1 K/mm3 (0-0.3); Eosinophils Percent Auto 10.9 % (0-4.4); Hematocrit 42.8 % (42.0-52.0); Hemoglobin 14.5 g/dL (14.0-18.0); Immature Granulocyte Absolute 0.04 K/mm3 (0.00-0.031); Immature Granulocyte Percent A 0.4 % (0-0.5); Lymphocytes Absolute Auto 3.11 K/mm3 (0.9-3.2); Lymphocytes Percent Auto 31.9 % (18.3-44.2); Mean Corpuscular HGB Conc 33.9 g/dl (32-36); Mean Corpuscular Hemoglobin 31.9 pg (26-34); Mean Corpuscular Volume 94.1 fl (80-100); Mean Platelet Volume 9.4 fl (7.4-10.4); Monocytes Percent Auto 10.3 % (2.6-8.5); Neutrophils Absolute Auto 4.4 K/mm3 (1.3-6.7); Neutrophils Percent Auto 45.2 % (45.5-73.1); Platelet Count Result 320 k/mm3 (150-375); Red Blood Count 4.55 M/mm3 (4.6-6.20); White Blood Count 9.8 K/mm3 (4.5-10.0)
[2022-02-10 10:19] LABS: Alanine Aminotransferase 27 U/L (6-50); Albumin Level 4.5 g/dL (3.5-5.1); Alkaline Phosphatase 119 U/L (38-126); Anion Gap 14 mmol/L (8-16); Aspartate Amino Transferase 26 U/L (17-59); Bilirubin,Total 0.6 mg/dL (0.2-1.3); Blood Urea Nitrogen 17 mg/dL (9-20); Calcium 8.7 mg/dL (8.4-10.2); Carbon Dioxide 21 mmol/L (22-30); Chloride 105 mmol/L (98-107); Estimated CRCL calculation 58 ml/min; Estimated Glomerular Filt Rate > 60; Glucose 155 mg/dL (65-110); Potassium 3.7 mmol/L (3.4-5.0); Sodium 140 mmol/L (137-145)
[2022-02-10 10:31] LABS: INR 0.9
[2022-02-10 10:32] LABS: Partial Thromboplastin Time 25.3 SECONDS (22.3-36.8)
[2022-02-10 11:34] VITALS: BP 114/70; PULSE 75; RESP 26; O2SAT 98
[2022-02-10 12:21] VITALS: BP 142/75; PULSE 80; RESP 12; O2SAT 100
== END 2022-02-10 13:11 | disposition home or self-care (01) ==
PROVIDERS: Emergency Provider General Practice; PCP Internal Medicine
DX: K64.4 Residual hemorrhoidal skin tags (principal); K62.5 Hemorrhage of anus and rectum; I10 Essential (primary) hypertension; E78.5 Hyperlipidemia, unspecified; M17.12 Unilateral primary osteoarthritis, left knee; G47.33 Obstructive sleep apnea (adult) (pediatric); Z96.652 Presence of left artificial knee joint; Z87.891 Personal history of nicotine dependence
CPT/HCPCS: 36415; 80053; 85025; 85610; 85730; 86850; 86900; 86901; 99283

== ENCOUNTER 2023-01-20 08:58 | Outpatient (CLI) | payer MEDICARE, OTHER, SELFPAY ==
--- NOTE | 2023-02-08 16:30 | WPDSLEEPSTUD ---
Sleep Study Date of Study: 01/20/23 Ordering Provider: Elton Ann, DROP WORKER Interpreting Physician: Bindu Lawler, DO Sleep Study Type: Split Polysomnogram Height: 1.8 m Weight: 79.379 kg Body Mass Index: 24.4 Neck Circumference (inches): 16 [place]: 0 Reason for Sleep Study Needs to re-qualify to get a new CPAP machine Sleep History The patient is a 67-year-old male with hypertension, hyperlipidemia, GERD, erectile dysfunction and previously diagnosed sleep apnea had a sleep study ordered by his ENT physician to re-qualify for PAP therapy. The patient constantly awakens from sleep short of breath. He denies awakening at night with heartburn, belching or cough. He constantly snores loudly enough that others complain. He rarely has trouble sleeping when he has a cold. He frequently wakes up gasping for air throughout the night. He constantly has breathing problems at night observed by himself or others. He denies sweating excessively at night. He denies having heart palpitations or irregular heartbeats during the night. He rarely falls asleep during the day but never while driving. He denies sleep paralysis and cataplexy. He denies having trouble at school or work due to sleepiness. He constantly experiences vivid dreamlike scenes upon awakening or falling asleep. He denies feeling afraid of going to sleep. He rarely has nightmares or remembers his dreams. He occasionally has thoughts racing through his mind. He denies feeling sad, depressed or anxious. He occasionally notices parts of his body jerk. He frequently kicks during the night. He denies having crawling and aching feelings in his legs. He occasionally has leg pain during the night. He rarely grinds his teeth during sleep but never awakens with morning jaw pain. He is constantly bothered by pain during the day and frequently awakened by pain during the night. He rarely wakes up feeling stiff in the morning. He rarely wakes up with sore or achy muscles. He rarely wakes up with pain in the neck, spine or other joints. He goes to bed at 9:00 p.m. on both weekdays and weekends. He can fall asleep relatively quickly. He wakes up twice throughout the night to urinate and is able to fall back asleep relatively quickly. He wakes up at 8:00 a.m. on both weekdays and weekends. He typically gets 9 hours of sleep per night. He does not stay in bed long after waking up in the morning. He currently lives with his . He denies consuming any caffeinated beverages within 2 hours of bedtime. He denies engaging in physical exercise before bedtime. He will watch television before falling asleep. He denies taking naps in afternoon or the evening. He denies consuming caffeinated beverages throughout the day. He quit smoking cigarettes 30 years ago. He will consume alcoholic beverages. [facility] Past Medical History Medical History Essential (primary) hypertension Hyperlipidemia LDL goal <130 Obstructive sleep apnea CPAP Osteoarthritis of left knee Surgical History Surgical History History of hernia repair History of toe surgery Osteochondral defect of condyle of femur S/P left unicompartmental knee replacement October 26, 2021 Status post arthroscopy of left knee (05/11/19) Family History Family History Mother Family history of malignant neoplasm of brain Patient's mother is Diabetes mellitus Father Family history of Parkinson's disease Patient's father is Hypertension Heart disease Other Family history of allergic disorder Family history of cardiovascular disease Social History Social History Social History: Patient lives with his , who will be his surrogate. 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 he d
[2023-02-08 16:44] VITALS: BMI 24.4
== END 2023-01-21 07:47 | disposition home or self-care (01) ==
LOC: ANHCSM 08:59
PROVIDERS: PCP Family Medicine; Visit Provider Nurse Practitioner Family
DX: G47.30 Sleep apnea, unspecified (principal)
CPT/HCPCS: 95811

== ENCOUNTER 2023-02-21 10:03 | Outpatient (CLI) | payer MEDICARE, OTHER, SELFPAY ==
--- NOTE | ~2023-02-21 | MR_ITS ---
MRI of the right knee Clinical history: Pain Technique: Coronal proton density and proton density-weighted images, sagittal proton-density and T2 fat-sat images, and axial proton-density fat-saturated images were acquired. Findings: Anterior and posterior cruciate ligaments are intact. Medial collateral ligament and the la teral collateral ligament complex are intact. Popliteus tendon is intact. There is a large radial tear at the posterior root of the medial meniscus. No lateral meniscal tear e vident. There is subchondral insufficiency fracture versus early osteochondral fragment at the central aspect of the medial femoral condyle, with extensive surrounding marrow edema throughout the medial femoral condyle region. There is more mild amorphous marrow edema in the medial tibial plateau region, with again possible very early developing osteochondral lesion in this region. There is high-grade chondro malacia at the lateral joint line. There is extensive high-grade chondromalacia over the lateral lu llar facet. Femoral trochlear cartilage is relatively well-preserved. Extensor mechanism is intact. Small joint effusion present. Small Yeh cyst present. Impression: Large radial tear at the posterior root of the medial assist. Subchondral insufficiency fracture versus early osteochondral fragment at the central aspect of the m edial femoral condyle with extensive reactive marrow edema throughout the medial femoral condyle. Possible very early developing osteochondral fragment of the medial tibial plateau region, with more mild, amorphous marrow edema in the medial tibial plateau region. 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 Small joint effusion with small Yeh's cyst. Reviewed, dictated and finalized at [facility]. Impression: Large radial tear at the posterior root of the medial assist. Subchondral insufficiency fracture versus early osteochondral fragment at the c entral aspect of the medial femoral condyle with extensive reactive marrow mehdi a throughout the medial femoral condyle. Possible very early developing osteochondral fragment of the medial tibial plat eau region, with more mild, amorphous marrow edema in the medial tibial plateau region. 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 Small joint effusion with small Yeh's cyst.
== END 2023-02-21 10:04 | disposition home or self-care (01) ==
PROVIDERS: PCP Family Medicine; Visit Provider Orthopaedic Surgery
DX: M25.461 Effusion, right knee (principal)
CPT/HCPCS: 73721

== ENCOUNTER 2023-05-10 10:37 | Outpatient (CLI) | payer MEDICARE, OTHER, SELFPAY ==
[2023-05-10 18:53] LABS: Alanine Aminotransferase 30 U/L (6-50); Albumin Level 3.8 g/dL (3.5-5.1); Alkaline Phosphatase 125 U/L (38-126); Anion Gap 4 mmol/L (8-16); Aspartate Amino Transferase 40 U/L (17-59); Blood Urea Nitrogen 12 mg/dL (9-20); Calcium 8.9 mg/dL (8.4-10.2); Carbon Dioxide 27 mmol/L (22-30); Chloride 106 mmol/L (98-107); Cholesterol 145 mg/dL (0-200); Estimated Glomerular Filt Rate > 60; Glucose 85 mg/dL (65-110); HDL Direct 50 mg/dL; Potassium 4.3 mmol/L (3.4-5.0); Sodium 137 mmol/L (137-145); Triglycerides 99 mg/dL (<150)
[2023-05-10 19:03] LABS: LDL Cholesterol Direct 75 mg/dL
[2023-05-10 20:25] LABS: Hemoglobin A1C 5.2 % (<5.7)
== END 2023-05-10 10:38 | disposition home or self-care (01) ==
LOC: ANHGOSHLAB 10:39
PROVIDERS: PCP Family Medicine; Visit Provider Family Medicine
DX: Z12.5 Encounter for screening for malignant neoplasm of prostate (principal); E78.5 Hyperlipidemia, unspecified; R73.9 Hyperglycemia, unspecified; Z13.228 Encounter for screening for other metabolic disorders; Z13.220 Encounter for screening for lipoid disorders
CPT/HCPCS: 36415; 80053; 80061; 83036; 84153; G0103

== ENCOUNTER → 2023-08-18 09:25 | Outpatient (CLI) | payer MEDICARE, OTHER, SELFPAY ==
--- NOTE | ~2023-08-18 | XR_ITS ---
EXAMINATION: XR chest 2V 08/18/2023 09:36 INDICATION: Acute bronchitis PROCEDURE: 2 view chest COMPARISON: No prior studies for comparison. FINDINGS: The lungs are clear. The cardiomediastinal silhouette is within normal limits. There are no pleural effusions. There is no pneumothorax suspected. IMPRESSION: 1: NO ACUTE CARDIOPULMONARY DISEASE. Reviewed, dictated and finalized at location A.
== END ==
PROVIDERS: PCP Family Medicine; Visit Provider Family Medicine
DX: J20.9 Acute bronchitis, unspecified (principal)
CPT/HCPCS: 71046

== ENCOUNTER 2024-03-07 09:43 | Outpatient (CLI) | payer MEDICARE, OTHER, SELFPAY | END 2024-03-07 09:44 | disposition home or self-care (01) | PROVIDERS: PCP Family Medicine; Visit Provider Nurse Practitioner Family | DX: R06.02 Shortness of breath (principal) | CPT/HCPCS: 94060; 94726; 94729 ==

== ENCOUNTER 2024-03-31 16:44 | Inpatient (IN) | payer MEDICARE, OTHER, SELFPAY ==
[2024-03-31] VITALS (17 sets, daily range): BP systolic 115–164; BP diastolic 54–95; PULSE 105–123; RESP 19–32; TEMP 36.6; O2SAT 90–100; BMI 26.2
--- NOTE | ~2024-03-31 | NM_ITS ---
EXAMINATION: NM lung vent and perfusion DATE: 04/04/2024 13:42 INDICATION: Chronic shortness of breath. TECHNIQUE: 7.9 mCi Xenon-133 was given for ventilation images. 5.4 mCi Tc-99m MAA was administered in travenously for perfusion images. Scintigraphic images of the chest were obtained. COMPARISON: Chest 2 views 04/04/2024, chest CT 04/02/2024 FINDINGS: The ventilation images demonstrate retention in the mid and lower lung zones. The perfusion images de monstrate small defects in the lower lobes. IMPRESSION: 1. Low probability for pulmonary embolism. Reviewed, dictated and finalized at location A. 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
--- NOTE | ~2024-03-31 | XR_ITS ---
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 RESULT: Lines, tubes, and devices: None. Lungs and pleura: Mild streaky perihilar opacities with cuffing. Cardiomediastinal silhouette: Stable. Other: No acute osseous or upper abdominal finding. IMPRESSION: Pulmonary opacities may represent respiratory bronchiolitis in the appropriate clinical context. Reviewed, dictated and finalized at location K. NOGRAPHY TEACHER
--- NOTE | ~2024-03-31 | CT_ITS ---
EXAMINATION: CTA chest PE protocol DATE: 03/31/2024 18:22 INDICATION: Dyspnea TECHNIQUE: Computed tomography angiography (CTA) of the chest was performed with 100 mL Omnipaque-350 intravenous contrast timed to evaluate the pulmonary arteries. Coronal maximum intensity projection 3D-reconstructions were created by the technologist. The dose-length product (DLP) was 397.13 mGy-cm. Automated exposure control and iterative reconstruction technique were employed. COMPARISON: X-ray chest 08/18/2023. FINDINGS: Lung parenchyma and airways: Significant motion artifact. Grossly clear. The central aerated spaces a re clear. Pleura: Unremarkable. Thoracic inlet, axillae and chest wall: Unremarkable. Thoracic aorta: No significant dilation. No dissection. Mediastinum: Normal. Heart and pericardium: Normal. Coronary artery calcifications: Moderate. Upper abdomen: Nonobstructing left upper pole calcification.. Bones: No acute osseous finding. Pulmonary arteries: Study quality: Severe motion artifact. No central pulmonary emboli detected. IMPRESSION: Study is severely limited by motion artifact. Segmental and more distal pulmonary arteries not adequa tely evaluated. No central pulmonary emboli detected. No acute process detected in the chest. Reviewed, dictated and finalized at location K. ER IMPRESSION: Study is severely limited by motion artifact. Segmental and more distal pulmona ry arteries not adequately evaluated. No central pulmonary emboli detected. No acute process detected in the chest.
--- NOTE | ~2024-03-31 | XR_ITS ---
EXAMINATION: XR chest 2V DATE: 04/04/2024 13:43 INDICATION: Chronic shortness of breath. TECHNIQUE: Frontal and lateral views of the chest were obtained. COMPARISON: Chest view 04/01/2024, chest CT 04/02/2024 FINDINGS: There is mild atelectasis at the lung bases. No pleural effusion or pneumothorax. The heart size is normal. IMPRESSION: 1. Mild atelectasis at the lung bases. Reviewed, dictated and finalized at location A. HT INSTRUCTOR
--- NOTE | ~2024-03-31 | US_ITS ---
EXAMINATION: US venous doppler [facility] DATE: 04/01/2024 19:12 INDICATION: RESP FAILURE . TECHNIQUE: Grayscale images without and with compression and Doppler images of the bilateral lower ex tremity veins were obtained. COMPARISON: None FINDINGS: The right common femoral vein, profunda (deep) femoral vein, femoral vein, popliteal vein, peroneal v ein, posterior tibial veins, and greater saphenous vein are patent. The left common femoral vein, profunda (deep) femoral vein, femoral vein, popliteal vein, peroneal v ein, posterior tibial veins, and greater saphenous vein are patent. IMPRESSION: Patent bilateral lower extremity veins. No evidence of deep venous thrombosis. Reviewed, dictated and finalized at location K. STERED ROUTE ASSOCIATE
--- NOTE | ~2024-03-31 | CT_ITS ---
EXAMINATION: CTA chest PE protocol DATE: 04/02/2024 14:09 INDICATION: Dyspnea. TECHNIQUE: Computed tomography angiography (CTA) of the chest was performed with 100 mL Omnipaque-350 intravenous contrast timed to evaluate the pulmonary arteries. Coronal maximum intensity projection 3D-reconstructions were created by the technologist. Automated exposure control and iterative reconst ruction technique were employed. The dose-length product was 397.87 mGy-cm. COMPARISON: Chest CT 03/31/2024 FINDINGS: There is mild scarring at the lung apices. There is a 3 mm nodule in right upper lobe, like ly benign. There is mild atelectasis bilaterally. There is mucous plugging in the lower lobes. No ple ural effusion. The heart size is normal. No pericardial effusion. There are coronary artery calcifica tions. There is no pericardial effusion. There is no pulmonary embolus. There is severe cervical and thoracic spondylosis. IMPRESSION: 1. No pulmonary embolus. Reviewed, dictated and finalized at location A. ER SERVICE TECHNICIAN IMPRESSION: 1. No pulmonary embolus.
--- NOTE | ~2024-03-31 | XR_ITS ---
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 RESULT: Lines, tubes, and devices: None. Lungs and pleura: Mild diffuse reticular opacities, decreased peribronchial cuffing. No focal consol idation, pleural effusion, or pneumothorax Cardiomediastinal silhouette: Stable. Other: No acute osseous or upper abdominal finding. IMPRESSION: Pulmonary opacities may represent senescent change, mild interstitial edema, or mild respiratory bron chiolitis depending on clinical context. Reviewed, dictated and finalized at location K. GHT LOADER IMPRESSION: Pulmonary opacities may represent senescent change, mild interstitial edema, or mild respiratory bronchiolitis depending on clinical context.
--- NOTE | 2024-03-31 16:44 | ECG_ITS ---
Test Date: 2024-03-31 16:59:13 Measurements Intervals [place] Rate: 111 P: 48 NE: 153 QRS: 57 QRSD: 90 T: 57 QT: 323 QTc: 439 Interpretive Statements SINUS TACHYCARDIA BASELINE WANDER- I, II, AVR, AVL, AVF, V1, V3-V6 ABNORMAL ECG No previous ECG available for comparison Electronically Signed On 03-31-2024 21:53:41 POWER CHISEL OPERATOR by Dawood Luna D.O.
[2024-03-31 17:06] LABS: Basophils Absolute Auto 0.1 K/mm3 (0.0-0.1); Basophils Percent Auto 0.9 % (0.2-1.2); Eosinophils Absolute Auto 1.8 K/mm3 (0-0.3); Eosinophils Percent Auto 12.6 % (0-4.4); Hematocrit 44.4 % (42.0-52.0); Hemoglobin 15.5 g/dL (14.0-18.0); Immature Granulocyte Absolute 0.06 K/mm3 (0.00-0.031); Immature Granulocyte Percent A 0.4 % (0-0.5); Lymphocytes Percent Auto 22.7 % (18.3-44.2); Mean Corpuscular HGB Conc 34.9 g/dl (32-36); Mean Corpuscular Hemoglobin 32.6 pg (26-34); Mean Corpuscular Volume 93.5 fl (80-100); Mean Platelet Volume 8.8 fl (7.4-10.4); Monocytes Absolute Auto 1.4 K/mm3 (0.1-0.6); Neutrophils Absolute Auto 7.5 K/mm3 (1.3-6.7); Neutrophils Percent Auto 53.4 % (45.5-73.1); Platelet Count Result 293 k/mm3 (150-375); Red Blood Count 4.75 M/mm3 (4.6-6.20); White Blood Count 14.1 K/mm3 (4.5-10.0)
[2024-03-31] MEDS: methylPREDNISolone SOD SUCC 125 MG VIAL IV PUSH ×2 (17:08→21:48)
[2024-03-31] MEDS: MAGNESIUM SULF 2 GM/WATER 50ML 2 GM/50 ML BAG IVPB (17:08)
[2024-03-31 17:15] LABS: Alveolar/Arterial O2 Gradient 124.9 mmHg; Base Excess ABG -3.5 mEq/l (+/-2.0); Fractional Inspired Oxygen 32 %; HCO3 ABG 19.8 mEq/l (22.0-26.0); Oxygen Content ABG 20.3 %vol (16.0-22.0); Oxygen Saturation ABG 93.8 % (95.0-100.0); Oxyhemoglobin 92.6 % THb (90.0-100.0); PCO2 ABG 31.3 mmHg (35.0-45.0); PO2 ABG 66.6 mmHg (80.0-100.0); PO2 FiO2 Ratio Arterial Blood 2.08 %; Total Hemoglobin 15.6 g/dL (12.0-18.0); pH ABG 7.419 (7.350-7.450)
[2024-03-31 17:16] LABS: Device BIPAP; Expiratory Pressure 7 cmH2O; Inspiratory Pressure 14 cmH2O; Modified Allen's Test Pass; Site Drawn LEFT RADIAL
[2024-03-31 17:17] LABS: INR 0.9; Prothrombin Time 12.6 Seconds (11.1-14.7)
[2024-03-31 17:18] LABS: Partial Thromboplastin Time 23.8 Seconds (22.3-36.8)
[2024-03-31] MEDS: IPRATROPIUM 0.5 MG/ALBUTEROL SULFATE 2.5 MG AMPUL.NEB 3 ML 6 ML INHALATION (17:23)
[2024-03-31 17:30] LABS: Alanine Aminotransferase 31 U/L (6-50); Albumin Level 4.5 g/dL (3.5-5.1); Alkaline Phosphatase 142 U/L (38-126); Anion Gap 10 mmol/L (4-12); Aspartate Amino Transferase 29 U/L (17-59); Bilirubin,Total 0.9 mg/dL (0.2-1.3); Blood Urea Nitrogen 15 mg/dL (9-20); Calcium 9.2 mg/dL (8.4-10.2); Carbon Dioxide 20 mmol/L (22-30); Chloride 107 mmol/L (98-107); Estimated CRCL calculation 61 ml/min; Estimated Glomerular Filt Rate > 60; Glucose 102 mg/dL (65-110); Lipase 62 U/L (23-300); Potassium 3.9 mmol/L (3.4-5.0); Sodium 137 mmol/L (137-145)
[2024-03-31 17:41] LABS: NT Pro B Type Natriuretic Pept 116 pg/mL (19.9-100); Troponin I < 0.012 ng/mL (0.000-0.034)
--- NOTE | 2024-03-31 17:42 | ED_ITS ---
HPI - Chest Pain General Chief Complaint: Chest Pain Stated Complaint: sob Time Seen by Provider: 03/31/24 16:57 Source: patient and family Mode of arrival: wheelchair Limitations: no limitations History of Present Illness HPI narrative: This is a 68-year-old male, with recent diagnosis of COPD, who presents emerge ncy department complaining of shortness of breath and chest pain. The patient states that symptoms began overnight last night. He to home albuterol inhalers without improvement. He states this worsened during a 3 hour flight here. He complains of sharp, left-sided chest pain that does not radiate also beginning last night. The patient states he has been seen by pulmonology but is unsure of his diagnosis. He denies fevers, productive cough, abdominal pain, nausea or vomiting. He has no other complaints at this time. Related Data Home Medications Medication Instructions Recorded Confirmed [id number] 250 mg-dha 90 1 cap PO DAILY 10/27/22 03/31/24 mg-epa 160 if-zpks-qynr-zeax capsule (Ocuvite Adult 50 Plus) cetirizine 10 mg tablet (Zyrtec) 10 mg PO BID allergy symptoms 03/20/24 03/31/24 famotidine 40 mg tablet 40 mg PO DAILY 03/20/24 03/31/24 montelukast 10 mg tablet 10 mg PO QHS 03/20/24 03/31/24 (Singulair) Allergies Allergy/AdvReac Type Severity Reaction Status Date / Time aspirin Allergy Intermediate EYES Verified 03/31/24 16:48 SWELLING ephedrine Allergy Intermediate Hives Verified 03/31/24 16:48 pseudoephedrine Allergy Intermediate Hives Verified 03/31/24 16:48 Review of Systems Review of Systems: All systems reviewed & are unremarkable except as noted in HPI and below PMFSH Past Medical History Medical History (Updated 03/31/24 @ 21:35 by Henrry Brown MD) Acute bronchitis (~08/2023) Chest x-ray normal on 08/18/2023. Arthritis of right knee Chronic cough COPD (chronic obstructive pulmonary disease) Hospitalized for acute exacerbation while in [place] 01/13-. However normal 03/16/2020 pulmonary function testing Elevated fasting glucose (03/06/24) fasting glucose 106 with GFR 72 on 03/06/2024. Encounter for prostate cancer screening PSA 2.0 on 05/10/2023. Essential (primary) hypertension Gastro-esophageal reflux disease without esophagitis Inflamed acrochordon (~03/2024) red inflamed tag right axilla 0.2 cm excised 03/20/2024 Irritable bowel syndrome with diarrhea Male erectile dysfunction, unspecified Mixed hyperlipidemia Cholesterol 145, triglycerides 99, HDL 50, LDL 75 on 05/10/2023. Cholesterol 162, triglycerides 86, HDL 41, LDL 105 on 03/06/2024. Non-recurrent unilateral inguinal hernia without obstruction or gangrene Obstructive sleep apnea History of JEISON starting 1989 with split night sleep study 01/20/2023 with AHI of 8.4 with oxygen saturation to 86% with titration to 11 cm of water pressure with AirSense 11 CPAP with ResMed AirFit F20 fullface mask 01/20/2023. Osteoarthritis of left knee Overweight (BMI 25.0-29.9) Peripheral neuropathy Personal history of tobacco use 2 packs per day for 23 years with patient stopping 1988. Raynaud's syndrome without gangrene Seasonal allergic rhinitis Stress fracture of femur medial femoral condyle right knee 2022 Urticaria Surgical History Surgical History (Updated 03/31/24 @ 21:12 by Nia Iverson DO) History of hernia repair History of toe surgery Osteochondral defect of condyle of femur S/P left unicompartmental knee replacement October 26, 2021 Status post arthroscopy of left knee (05/11/19) Family History Family History (Updated 03/31/24 @ 21:20 by Gasper Rojas RN) Mother Diabetes mellitus Patient's mother is Family history of malignant neoplasm of brain Father Heart disease Patient's father is Family history of Parkinson's disease Hypertension Sibling Diabetes mellitus Asthma Other Family history of allergic disorder Family history of cardiovascular disease Social History Social History (Updated 03/31/24 @ 21:14 by iNa Iverson DO) Social History: Patient lives with his . 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 He does admit to 3 beers and 3 cocktail weekly. Code status: Full code Surrogate decision maker: Smoking packs per day: 2 Smoking cigarettes per day: 40.0 Years smoked: 15 Smoking pack-years: 30.00 Smoking status: Former smoker Tobacco type: cigarettes Smoking end date: 05/02/88 Alcohol intake: current Drinks per week: 20 Alcohol use details: BEER/COCKTAILS Substance use: former Substance use type: marijuana Last use: Do You Feel Safe in your Home?: Yes Lack of Transportation: No Lack of Food: Never True Current Housing: I Have Housing Concerned About Future Housing: No Difficulty Paying Gas/Electric Bills: No Difficulty Paying for Meds: No Currently Unemployed: No Education: Trade/Vocational Certificate Difficulty w/ Childcare or Family Care: No Living arrangements: with family Occupation/Education: retired Gender identity (if verbalized by the patient): Male Sexual Orientation (if Verbalized by the Patient): Straight or Heterosexual Spiritual care concerns: Yes Agree to blood products: Yes Exam Narrative: GENERAL: Well-developed, well-nourished, in moderate respiratory distress HEAD: Normocephalic, atraumatic. EYES: PERRLA and EOMI. NECK: Supple. No JVD CHEST: In moderate respiratory distress, tachypneic, diminished aeration, full cycle wheeze in all lung koch. No rales or rhonchi HEART: Tachycardic with regular rhythm. No murmur heard. Normal peripheral pulses. ABDOMEN: Soft, nontender, nondistended, normal active bowel sounds. EXTREMITIES: Normal range of motion. No edema. SKIN: Warm, dry, no rash. NEURO: Alert and oriented x3. No focal deficit. Moving all 4 limbs spontaneously PSYCH: Normal mood and affect. Course Course Emergency Course: 17:54 - The patient became anxious on BiPAP which was removed to 4 L by nasal cannula. On re-evaluation, the patient's wheeze and work of breathing is improving. Will hold BiPAP for at this time and repeat an albuterol neb. 18:53 - On re-evaluation of the repeat albuterol, the patient's work of breathing and wheezing is improving. CT angiogram degraded by motion artifact does not concerning for central PE or other acute cardiopulmonary process. I suspect COPD exacerbation as a cause of the patient's symptoms. Patient is neg ative for COVID and influenza. Chemistries unremarkable. BNP slightly elevated at 116. Troponin negative. CBC demonstrates white blood cell count elevation of 14.1 but is otherwise unremarkable. ABG demonstrates mildly decreased pCO2 of 31.3 with a bicarb of 19. Will discuss with hospitalist. 19:12 - I discussed the patient with hospitalist, and began yelling who accepts admission. Vital Signs Vital signs: Vital Signs Pulse Rate 109 H 03/31/24 17:06 Respiratory Rate 20 03/31/24 17:06 Pulse Oximetry 94 03/31/24 17:06 Oxygen Delivery BiPAP 03/31/24 17:06 Pulse Rate 119 H 03/31/24 19:59 Respiratory Rate 19 03/31/24 19:59 Blood Pressure 164/87 H 03/31/24 19:01 Pulse Oximetry 90 03/31/24 19:01 Oxygen Delivery Nasal Cannula 03/31/24 18:32 Oxygen Flow Rate 4 03/31/24 18:32 Fraction of Inspired Oxygen 28 03/31/24 17:57 MDM - Chest Pain MDM Narrative Medical decision making narrative: Plan: BiPAP, labs, nebs, EKG, imaging, troponin, reassess Differential Diagnosis Differential diagnosis: Likely pneumothorax and other (ACS, COPD exacerbation, pneumonia, COVID, influenza, new onset CHF, metabolic abnormality, other) Lab Data 03/31/24 17:01 03/31/24 17:01 Labs: Lab Results 03/31/24 03/31/24 Range/Units 17:01 17:13 WBC 14.1 H (4.5-10.0) K/mm3 RBC 4.75 (4.6-6.20) M/mm3 Hgb 15.5 (14.0-18.0) g/dL Hct 44.4 (42.0-52.0) % MCV 93.5 (80-100) fl MCH 32.6 (26-34) pg MCHC 34.9 (32-36) g/dl RDW 13.0 (11.5-14.5) % Plt Count 293 (150-375) k/mm3 MPV 8.8 (7.4-10.4) fl Immature Gran % (Auto) 0.4 (0-0.5) % Neut % (Auto) 53.4 (45.5-73.1) % Lymph % (Auto) 22.7 (18.3-44.2) % [place] % (Auto) 10.0 H (2.6-8.5) % Eos % (Auto) 12.6 H (0-4.4) % Baso % (Auto) 0.9 (0.2-1.2) % Lymph # (Auto) 3.20 (0.9-3.2) K/mm3 [place] # (Auto) 1.4 H (0.1-0.6) K/mm3 Eos # (Auto) 1.8 H (0-0.3) K/mm3 Baso # (Auto) 0.1 (0.0-0.1) K/mm3 Abs Immat Gran (auto) 0.06 H (0.00-0.031) K/mm3 Absolute Neuts (auto) 7.5 H (1.3-6.7) K/mm3 Absolute Nucleated RBC 0.000 (0.0-0.012) K/mm3 Nucleated RBC % 0.0 (0.0-0.2) % PT 12.6 (11.1-14.7) Seconds INR 0.9 APTT 23.8 (22.3-36.8) Seconds Expiratory Pressure 7 cmH2O Inspiratory Pressure 14 cmH2O Sodium 137 (137-145) mmol/L Potassium 3.9 (3.4-5.0) mmol/L Chloride 107 (98-107) mmol/L Carbon Dioxide 20 L (22-30) mmol/L Anion Gap 10 (4-12) mmol/L BUN 15 (9-20) mg/dL Creatinine 1.10 (0.7-1.3) mg/dL Estim Creat Clear Calc 61 ml/min Estimated GFR > 60 (59 - ) Glucose 102 (65-110) mg/dL Calcium 9.2 (8.4-10.2) mg/dL Total Bilirubin 0.9 (0.2-1.3) mg/dL AST 29 (17-59) U/L ALT 31 (6-50) U/L Alkaline Phosphatase 142 H (38-126) U/L Troponin I < 0.012 (0.000-0.034) ng/mL NT-Pro-B Natriuret Pep 116 H (19.9-100) pg/mL Total Protein 7.0 (6.3-8.2) g/dL Albumin 4.5 (3.5-5.1) g/dL Lipase 62 (23-300) U/L Influenza A (RT-PCR) Negative (Negative) Influenza B (RT-PCR) Negative (Negative) SARS-CoV-2 RNA (RT-PCR) Negative (Negative) ABG Data ABG results: 03/31/24 17:13 Puncture Site Left radial ABG pH 7.419 ABG pCO2 31.3 L ABG pO2 66.6 L ABG PO2/FiO2 Ratio 2.08 ABG HCO3 19.8 L ABG O2 Saturation 93.8 L ABG O2 Content 20.3 ABG Base Excess -3.5 A-a Gradient 124.9 Oxyhemoglobin 92.6 Total Hemoglobin 15.6 O2 Delivery Device Bipap O2 Liters/Min Not Reportable FiO2 32 ECG Data EKG #1: Attestation: I personally reviewed and interpreted this ECG as follows: ECG completion date: 03/31/24 ECG completion time: 16:59 Prior ECG tracings: not available for review Interpretation: Sinus tachycardia, rate 111, normal axis, no ST segment elevations or T-wave inversions concerning for ischemia, normal intervals with QTC of 388. I am unable to view the EKG for direct comparison due to technical difficulties. Discharge Plan Discharge Clinical Impression: Acute hypoxic respiratory failure, Tachycardia, Acute bronchospasm Patient Disposition: Still a Patient Condition: Serious Time of Disposition: 19:12
[2024-03-31 17:55] LABS: Influenza A QL RT-PCR Negative (Negative); Influenza B QL RT-PCR Negative (Negative); SARS-CoV-2 RNA PCR Negative (Negative)
[2024-03-31] MEDS: ALBUTEROL SULFATE NEB 2.5 MG/3 ML INH 5 MG INHALATION (17:57)
[2024-03-31] MEDS: ALBUTEROL SULFATE NEB 2.5 MG/3 ML INH 10 MG INHALATION (19:07)
--- NOTE | 2024-03-31 20:07 | ECG_ITS ---
Test Date: 2024-03-31 20:11:52 Measurements Intervals [place] Rate: 125 P: 54 UT: 153 QRS: 72 QRSD: 90 T: 62 QT: 313 QTc: 452 Interpretive Statements SINUS TACHYCARDIA BASELINE ARTIFACT- I, II, III, AVR, AVL, AVF, V1 ABNORMAL ECG Compared to ECG 03/31/2024 16:59:13 No significant changes Electronically Signed On 03-31-2024 21:56:24 TECHNICAL APPLICATIONS SCIENTIST by Dawood Luna D.O.
[2024-03-31 20:46] LABS: Troponin I < 0.012 ng/mL (0.000-0.034)
--- NOTE | 2024-03-31 20:54 | PM.IMHP ---
H&P: HPI History of Present Illness Date/Time: 03/31/24 20:54 Chief Complaint: Shortness of breath and chest pain Narrative: 68-year-old male with past medical history of essential hypertension, GERD, and obstructive sleep apnea compliant with CPAP who presented to the ER with shortness breath and hypoxia. The patient reports he has been having issues with shortness of breath since July or so. He has had outpatient pulmonary function testing but has not been evaluated by tug captain. His post see tug captain at this facility next month. He has been having a dry cough. He denies fevers or chills. He denies known ill contacts but did just returned from a cruise to the [facility]. He reported noticing ?some? lower extremity swelling but he does not have overt lower extremity swelling at the time of my evaluation. He denies orthopnea or paroxysmal nocturnal dyspnea. He has not had any fevers or chills. Further review of systems was limited as the patient fell asleep during my evaluation. It was not clear from obtaining history of patient had had a prior echo or not. Review of Systems Review of Systems: 12 systems were reviewed with pertinent positives and negatives per HPI. Except as documented in the HPI, all other systems were reviewed and are negative. [facility] Past Medical History Medical History (Updated 03/31/24 @ 21:35 by Henrry Brown MD) Acute bronchitis (~08/2023) Chest x-ray normal on 08/18/2023. Arthritis of right knee Chronic cough COPD (chronic obstructive pulmonary disease) Hospitalized for acute exacerbation while in [place] 01/13-. However normal 03/16/2020 pulmonary function testing Elevated fasting glucose (03/06/24) fasting glucose 106 with GFR 72 on 03/06/2024. Encounter for prostate cancer screening PSA 2.0 on 05/10/2023. Essential (primary) hypertension Gastro-esophageal reflux disease without esophagitis Inflamed acrochordon (~03/2024) red inflamed tag right axilla 0.2 cm excised 03/20/2024 Irritable bowel syndrome with diarrhea Male erectile dysfunction, unspecified Mixed hyperlipidemia Cholesterol 145, triglycerides 99, HDL 50, LDL 75 on 05/10/2023. Cholesterol 162, triglycerides 86, HDL 41, LDL 105 on 03/06/2024. Non-recurrent unilateral inguinal hernia without obstruction or gangrene Obstructive sleep apnea History of JEISON starting 1989 with split night sleep study 01/20/2023 with AHI of 8.4 with oxygen saturation to 86% with titration to 11 cm of water pressure with AirSense 11 CPAP with ResMed AirFit F20 fullface mask 01/20/2023. Osteoarthritis of left knee Overweight (BMI 25.0-29.9) Peripheral neuropathy Personal history of tobacco use 2 packs per day for 23 years with patient stopping 1988. Raynaud's syndrome without gangrene Seasonal allergic rhinitis Stress fracture of femur medial femoral condyle right knee 2022 Urticaria Surgical History Surgical History (Updated 03/31/24 @ 21:12 by Nia Iverson DO) History of hernia repair History of toe surgery Osteochondral defect of condyle of femur S/P left unicompartmental knee replacement October 26, 2021 Status post arthroscopy of left knee (05/11/19) Family History Family History Mother Diabetes mellitus Patient's mother is Family history of malignant neoplasm of brain Father Heart disease Patient's father is Family history of Parkinson's disease Hypertension Sibling Diabetes mellitus Asthma Other Family history of allergic disorder Family history of cardiovascular disease Social History Social History (Updated 03/31/24 @ 21:14 by Nia Iverson DO) Social History: Patient lives with his . 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 He does admit to 3 beers and 3 cocktail weekly. Code status: Full code Surrogate decision maker: Smoking packs per day: 2 Smoking cigarettes per day: 40.0 Years smoked: 15 Smoking pack-years: 30.00 Smoking status: Former smoker Tobacco type: cigarettes Smoking end date: 05/02/88 Alcohol intake: current Drinks per week: 20 Alcohol use details: BEER/COCKTAILS Substance use: former Substance use type: marijuana Last use: Do You Feel Safe in your Home?: Yes Lack of Transportation: No Lack of Food: Never True Current Housing: I Have Housing Concerned About Future Housing: No Difficulty Paying Gas/Electric Bills: No Difficulty Paying for Meds: No Currently Unemployed: No Education: Trade/Vocational Certificate Difficulty w/ Childcare or Family Care: No Living arrangements: with family Occupation/Education: retired Gender identity (if verbalized by the patient): Male Sexual Orientation (if Verbalized by the Patient): Straight or Heterosexual Spiritual care concerns: Yes Agree to blood products: Yes Meds Home Medications and Allergies Home Medications Medication Instructions Recorded Confirmed Type mlzxsoof-lro-[id number] 250 mg-dha 90 1 cap PO DAILY 10/27/22 03/31/24 History mg-epa 160 ov-fjjj-ilhe-zeax capsule (Ocuvite Adult 50 Plus) CPAP #1 ea 02/11/23 03/31/24 Rx amlodipine 10 mg tablet 10 mg PO . Q.a.m. #90 tabs 08/18/23 03/31/24 Rx atorvastatin 40 mg tablet 40 mg PO DAILY #90 tabs 08/18/23 03/31/24 Rx omeprazole 20 mg capsule,delayed 20 mg PO DAILY #90 caps 08/18/23 03/31/24 Rx release tadalafil 20 mg tablet (Cialis) 20 mg PO DAILY PRN sexual activity 08/18/23 03/31/24 Rx #30 tabs ipratropium 0.5 mg-albuterol 3 mg 3 ml inhalation TID PRN shortness 02/29/24 03/31/24 Rx (2.5 mg base)/3 mL nebulization of breath or wheezing #90 mL soln albuterol sulfate 90 mcg/actuation 1 - 2 puff inhalation Q4-6H PRN 03/06/24 03/31/24 Rx aerosol inhaler shortness of breath or wheezing #8.5 grams cetirizine 10 mg tablet (Zyrtec) 10 mg PO BID allergy symptoms 03/20/24 03/31/24 History famotidine 40 mg tablet 40 mg PO DAILY 03/20/24 03/31/24 History fluticasone fur. 100 mcg-umeclid 1 inh inhalation DAILY #60 ea 03/20/24 03/31/24 Rx 62.5 mcg-vilant 25 mcg inhalat.powder (Trelegy Ellipta) irbesartan 150 mg tablet 150 mg PO DAILY #90 tabs 03/20/24 03/31/24 Rx montelukast 10 mg tablet 10 mg PO QHS 03/20/24 03/31/24 History (Singulair) Allergies Allergy/AdvReac Type Severity Reaction Status Date / Time aspirin Allergy Intermediate EYES Verified 03/31/24 16:48 SWELLING ephedrine Allergy Intermediate Hives Verified 03/31/24 16:48 pseudoephedrine Allergy Intermediate Hives Verified 03/31/24 16:48 Vital Signs Vital Signs - 24 hr 03/31/24 17:11 03/31/24 17:12 03/31/24 17:06 Pulse Rate 110 H 109 H Respiratory Rate 27 H 20 Blood Pressure 157/95 H Pulse Oximetry 95 96 94 Oxygen Delivery BiPAP BiPAP Oxygen Flow Rate Fraction of Inspired Oxygen 32 03/31/24 17:23 03/31/24 17:57 03/31/24 17:57 Pulse Rate 105 H 114 H Respiratory Rate 28 H 24 H Blood Pressure Pulse Oximetry 97 Oxygen Delivery Nasal Cannula Oxygen Flow Rate 2 Fraction of Inspired Oxygen 03/31/24 17:42 03/31/24 18:10 03/31/24 18:01 Pulse Rate 120 H 112 H 111 H Respiratory Rate 32 H 22 H 24 H Blood Pressure 135/82 Pulse Oximetry 100 Oxygen Delivery Oxygen Flow Rate Fraction of Inspired Oxygen 03/31/24 18:32 03/31/24 18:39 03/31/24 19:08 Pulse Rate 118 H 117 H Respiratory Rate 25 H 19 Blood Pressure 115/54 L Pulse Oximetry 90 91 Oxygen Delivery Nasal Cannula Oxygen Flow Rate 4 Fraction of Inspired Oxygen 03/31/24 19:59 03/31/24 19:01 Pulse Rate 119 H 120 H Respiratory Rate 19 28 H Blood Pressure 164/87 H Pulse Oximetry 90 Oxygen Delivery Oxygen Flow Rate Fraction of Inspired Oxygen Exam Narrative: Weight 83 kg BMI 25.5 Const: Other: Overweight, no acute distress, lying in bed in the right some a, position with CPAP in place HENMT: Other: CPAP in place, oropharynx not evaluate further, head is normocephalic atraumatic Eyes: Other: Pupils are equal and reactive, no scleral icterus, no conjunctival pallor Neck: Other: Normal neck circumference, supple Resp: Other: Clear to auscultation bilaterally, no increased work of breathing Cardio: Other: Sinus tachycardia, 2+ bilateral radial pedal pulses GI: Other: Soft, nontender, normoactive bowel sounds Skin: Other: No jaundice, no pallor Neuro: Other: Alert oriented x3, speech was clear, cranial nerves were difficult to assess due to presence of BiPAP but no obvious deficit, no gross motor deficits noted during the course of limited exam Extrem: Other: No clubbing, cyanosis or edema Psych: Other: Flat affect, otherwise cooperative H&P: Results Labs Labs: Laboratory Tests 03/31/24 17:01 03/31/24 17:01 03/31/24 03/31/24 03/31/24 17:01 17:13 20:09 WBC 14.1 H RBC 4.75 Hgb 15.5 Hct 44.4 MCV 93.5 MCH 32.6 MCHC 34.9 RDW 13.0 Plt Count 293 MPV 8.8 Immature Gran % (Auto) 0.4 Neut % (Auto) 53.4 Lymph % (Auto) 22.7 [place] % (Auto) 10.0 H Eos % (Auto) 12.6 H Baso % (Auto) 0.9 Lymph # (Auto) 3.20 [place] # (Auto) 1.4 H Eos # (Auto) 1.8 H Baso # (Auto) 0.1 Abs Immat Gran (auto) 0.06 H Absolute Neuts (auto) 7.5 H Absolute Nucleated RBC 0.000 Nucleated RBC % 0.0 PT 12.6 INR 0.9 APTT 23.8 Puncture Site Left radial ABG pH 7.419 ABG pCO2 31.3 L ABG pO2 66.6 L ABG PO2/FiO2 Ratio 2.08 ABG HCO3 19.8 L ABG O2 Saturation 93.8 L ABG O2 Content 20.3 ABG Base Excess -3.5 A-a Gradient 124.9 Oxyhemoglobin 92.6 Total Hemoglobin 15.6 O2 Delivery Device Bipap O2 Liters/Min Not Reportable FiO2 32 Expiratory Pressure 7 Inspiratory Pressure 14 Sodium 137 Potassium 3.9 Chloride 107 Carbon Dioxide 20 L Anion Gap 10 BUN 15 Creatinine 1.10 Estim Creat Clear Calc 61 Estimated GFR > 60 Glucose 102 Calcium 9.2 Total Bilirubin 0.9 AST 29 ALT 31 Alkaline Phosphatase 142 H Troponin I < 0.012 < 0.012 NT-Pro-B Natriuret Pep 116 H Total Protein 7.0 Albumin 4.5 Lipase 62 Influenza A (RT-PCR) Negative Influenza B (RT-PCR) Negative SARS-CoV-2 RNA (RT-PCR) Negative Impressions Chest CTA 03/31/24 18:39 IMPRESSION: Study is severely limited by motion artifact. Segmental and more distal pulmonary arteries not adequately evaluated. No central pulmonary emboli detected. No acute process detected in the chest. Chest X-Ray 03/31/24 18:48 IMPRESSION: Pulmonary opacities may represent respiratory bronchiolitis in the appropriate clinical context. EKG: Personally reviewed x2 Assessment and Plan Assessment and plan (1) Acute hypoxic respiratory failure: Code(s): J96.01 - Acute respiratory failure with hypoxia Status: Acute (2) Gastro-esophageal reflux disease without esophagitis: Code(s): K21.9 - Gastro-esophageal reflux disease without esophagitis Status: Acute (3) Obstructive sleep apnea: Code(s): G47.33 - Obstructive sleep apnea (adult) (pediatric) Status: Acute Plan Acute hypoxic respiratory failure of uncertain etiology. At the time of my evaluation the patient was sleeping soundly on his home CPAP (CPAP of 11) I think that this CPAP was attached to bleeding oxygen but this is not clear. Patient was maintaining his saturations on the settings. Cause of the patient's hypoxic respiratory failure a gets could be due to COPD but this would be unusual given his completely normal PFTs that were performed recently. There could be a component of vocal cord dysfunction or possible cardiac cause although cardiac cause seems less likely given lack of evidence of pulmonary edema on imaging. The radically there could be an underlying pulmonary embolism with but was difficult to tell due to motion artifact. Depending on if the patient's renal function remains preserved we may need to consider repeat CTA to rule out pulmonary embolism given recent travel. Will defer decision to pulmonology who has been consulted. Will continue scheduled nebulizers and steroids although utility of this given that the patient pulmonary function testing was normal in and without evidence of active wheezing???However patient does report improvement in symptoms with these measures. Patient had Tylenol codeine listed on his home med rec above which I have just removed since this has not been filled since May. Was unable to ask the patient further details about this because he fell asleep during my evaluation and I had difficulty waking in backup. I do not suspect hypercapnic respiratory failure as patient was easily to arouse on a 1st entered the room and he had evidence of respiratory alkalosis on ABG. Will continue home PPI therapy. Patient has been admitted as observation status. Quality VTE Prophylaxis VTE prophylaxis: pharmacologic ordered (Lovenox 40 mg subQ daily) Hospitalist MIPS Advance Care Plan I have confirmed that the patient's Advanced Care Plan is present, code status is documented, or surrogate decision maker is listed in patient medical record.: Yes Medication Reconciliation I have utilized all available resources to obtain, update and review the patients current medications (includes all prescriptions, OTC, herbals, cannabis, and nutritional supplements).: Yes
[2024-03-31 23:25] LABS: Troponin I < 0.012 ng/mL (0.000-0.034)
[2024-04-01] VITALS (26 sets, daily range): BP systolic 145–179; BP diastolic 70–90; PULSE 107–128; RESP 18–32; TEMP 36.4–37.1; O2SAT 94–100; BMI 26.4
[2024-04-01] MEDS: LEVALBUTEROL NEB 1.25 MG/3 ML INHALATION ×4 (02:09→20:41)
[2024-04-01] MEDS: IPRATROPIUM BR 0.02% INH SOLN 0.5 MG/2.5 ML VIAL INHALATION ×4 (02:10→20:41)
[2024-04-01 05:10] LABS: Basophils Percent Auto 0.2 % (0.2-1.2); Eosinophils Percent Auto 0.1 % (0-4.4); Hematocrit 43.1 % (42.0-52.0); Hemoglobin 15.1 g/dL (14.0-18.0); Immature Granulocyte Absolute 0.05 K/mm3 (0.00-0.031); Immature Granulocyte Percent A 0.4 % (0-0.5); Lymphocytes Absolute Auto 1.01 K/mm3 (0.9-3.2); Mean Corpuscular Hemoglobin 32.9 pg (26-34); Mean Corpuscular Volume 93.9 fl (80-100); Monocytes Absolute Auto 0.1 K/mm3 (0.1-0.6); Monocytes Percent Auto 0.9 % (2.6-8.5); Neutrophils Absolute Auto 11.5 K/mm3 (1.3-6.7); Neutrophils Percent Auto 90.4 % (45.5-73.1); Platelet Count Result 292 k/mm3 (150-375); Red Blood Count 4.59 M/mm3 (4.6-6.20); Red Cell Distribution Width 13.1 % (11.5-14.5); White Blood Count 12.7 K/mm3 (4.5-10.0)
[2024-04-01 05:21] LABS: Anion Gap 12 mmol/L (4-12); Blood Urea Nitrogen 19 mg/dL (9-20); Calcium 9.4 mg/dL (8.4-10.2); Carbon Dioxide 20 mmol/L (22-30); Chloride 106 mmol/L (98-107); Estimated CRCL calculation 61 ml/min; Estimated Glomerular Filt Rate > 60; Glucose 161 mg/dL (65-110); Potassium 4.5 mmol/L (3.4-5.0); Sodium 138 mmol/L (137-145)
[2024-04-01] MEDS: methylPREDNISolone SOD SUCC 125 MG VIAL IV PUSH (06:12)
--- NOTE | 2024-04-01 13:12 | PM.IMPN ---
Progress Note: A&P Assessment and Plan (1) Acute hypoxic respiratory failure: Code(s): J96.01 - Acute respiratory failure with hypoxia Status: Acute (2) Gastro-esophageal reflux disease without esophagitis: Code(s): K21.9 - Gastro-esophageal reflux disease without esophagitis Status: Acute (3) Obstructive sleep apnea: Code(s): G47.33 - Obstructive sleep apnea (adult) (pediatric) Status: Acute Plan Acute hypoxic respiratory failure Likely COPD exacerbation Patient is a former smoker, reported that he had trelegy within 4 hours prior to the test which may have affected result given that patient is wheezing, will treat him as COPD exacerbation CTA chest was negative Continue Methylprednisone and bronchodilators Currently on 4 liters of oxygen, no oxygen at baseline titrate oxygen Monitor GERD continue home meds JEISON continue CPAP DVT prophylaxis Sq lovenox At the time of my evaluation the patient was sleeping soundly on his home CPAP (CPAP of 11) I think that this CPAP was attached to bleeding oxygen but this is not clear. Patient was maintaining his saturations on the settings. Cause of the patient's hypoxic respiratory failure a gets could be due to COPD but this would be unusual given his completely normal PFTs that were performed recently. There could be a component of vocal cord dysfunction or possible cardiac cause although cardiac cause seems less likely given lack of evidence of pulmonary edema on imaging. The radically there could be an underlying pulmonary embolism with but was difficult to tell due to motion artifact. Depending on if the patient's renal function remains preserved we may need to consider repeat CTA to rule out pulmonary embolism given recent travel. Will defer decision to pulmonology who has been consulted. Will continue scheduled nebulizers and steroids although utility of this given that the patient pulmonary function testing was normal in and without evidence of active wheezing???However patient does report improvement in symptoms with these measures. Patient had Tylenol codeine listed on his home med rec above which I have just removed since this has not been filled since May. Was unable to ask the patient further details about this because he fell asleep during my evaluation and I had difficulty waking in backup. I do not suspect hypercapnic respiratory failure as patient was easily to arouse on a 1st entered the room and he had evidence of respiratory alkalosis on ABG. Will continue home PPI therapy. Patient has been admitted as observation status. Subjective Date/time seen: 04/01/24 13:12 Interval history: Wheezing at bedside. patient noted he took his telegy within 4 hrs of his PFT which may have affected the results He is a former smoker Review of Systems Review of Systems: 12 systems were reviewed with pertinent positives and negatives per HPI. Except as documented in the HPI, all other systems were reviewed and are negative. Exam Narrative: Weight 83 kg BMI 25.5 Const: Other: Overweight, no acute distress, lying in bed in the right some a, position with CPAP in place HENMT: Other: CPAP in place, oropharynx not evaluate further, head is normocephalic atraumatic Eyes: Other: Pupils are equal and reactive, no scleral icterus, no conjunctival pallor Neck: Other: Normal neck circumference, supple Resp: Other: Clear to auscultation bilaterally, no increased work of breathing Cardio: Other: Sinus tachycardia, 2+ bilateral radial pedal pulses GI: Other: Soft, nontender, normoactive bowel sounds Skin: Other: No jaundice, no pallor Neuro: Other: Alert oriented x3, speech was clear, cranial nerves were difficult to assess due to presence of BiPAP but no obvious deficit, no gross motor deficits noted during the course of limited exam Extrem: Other: No clubbing, cyanosis or edema Psych: Other: Flat affect, otherwise cooperative Objective Data Vital Signs Vital Signs: Vital Signs - 24 hr 03/31/24 17:11 03/31/24 17:12 03/31/24 17:06 Temperature Pulse Rate 110 H 109 H Respiratory Rate 27 H 20 Blood Pressure 157/95 H Pulse Oximetry 95 96 94 Oxygen Delivery BiPAP BiPAP Oxygen Flow Rate Fraction of Inspired Oxygen 32 03/31/24 17:23 03/31/24 17:57 03/31/24 17:57 Temperature Pulse Rate 105 H 114 H Respiratory Rate 28 H 24 H Blood Pressure Pulse Oximetry 97 Oxygen Delivery Nasal Cannula Oxygen Flow Rate 2 Fraction of Inspired Oxygen 03/31/24 17:42 03/31/24 18:10 03/31/24 18:01 Temperature Pulse Rate 120 H 112 H 111 H Respiratory Rate 32 H 22 H 24 H Blood Pressure 135/82 Pulse Oximetry 100 Oxygen Delivery Oxygen Flow Rate Fraction of Inspired Oxygen 03/31/24 18:32 03/31/24 18:39 03/31/24 19:08 Temperature Pulse Rate 118 H 117 H Respiratory Rate 25 H 19 Blood Pressure 115/54 L Pulse Oximetry 90 91 Oxygen Delivery Nasal Cannula Oxygen Flow Rate 4 Fraction of Inspired Oxygen 03/31/24 19:59 03/31/24 19:01 03/31/24 20:35 Temperature 97.8 F Pulse Rate 119 H 120 H 119 H Respiratory Rate 19 28 H 24 H Blood Pressure 164/87 H 159/79 H Pulse Oximetry 90 93 Oxygen Delivery Oxygen Flow Rate Fraction of Inspired Oxygen 03/31/24 23:05 03/31/24 21:10 03/31/24 23:44 Temperature Pulse Rate 123 H 114 H Respiratory Rate Blood Pressure Pulse Oximetry 93 Oxygen Delivery Nasal Cannula Oxygen Flow Rate 4 Fraction of Inspired Oxygen 04/01/24 00:00 04/01/24 02:10 04/01/24 02:15 Temperature Pulse Rate 114 H 119 H 117 H Respiratory Rate 20 20 Blood Pressure Pulse Oximetry Oxygen Delivery Oxygen Flow Rate Fraction of Inspired Oxygen 04/01/24 02:32 04/01/24 04:00 04/01/24 06:00 Temperature 98.2 F Pulse Rate 117 H 123 H 113 H Respiratory Rate 18 18 Blood Pressure 154/70 H Pulse Oximetry 95 97 Oxygen Delivery Oxygen Flow Rate Fraction of Inspired Oxygen 04/01/24 07:48 04/01/24 07:50 04/01/24 07:55 Temperature Pulse Rate 114 H 116 H Respiratory Rate 22 H 22 H Blood Pressure Pulse Oximetry 94 Oxygen Delivery Nasal Cannula Oxygen Flow Rate 4 Fraction of Inspired Oxygen 04/01/24 08:00 Temperature Pulse Rate Respiratory Rate Blood Pressure Pulse Oximetry 94 Oxygen Delivery Nasal Cannula Oxygen Flow Rate 4 Fraction of Inspired Oxygen Intake/Output Intake/Output: Intake & Output 03/29/24 03/30/24 03/31/24 04/01/24 23:59 23:59 23:59 23:59 Intake Total 50 560 Balance 50 560 Meds/Results Medications: Active Medications Generic Name Dose Route Start Last Admin Trade Name Freq PRN Reason Stop Dose Admin Amlodipine Besylate 10 mg 04/01/24 13:10 Amlodipine Besylate 10 Mg Tablet PO QAM [facility] Atorvastatin Calcium 40 mg 04/02/24 09:00 Atorvastatin 40 Mg Tablet PO DAILY [facility] Enoxaparin Sodium 40 mg 04/02/24 09:00 Enoxaparin 40 Mg/0.4 Ml Syringe SUB-Q DAILY [facility] Fluticasone/Umeclidinium/Vilanterol 1 puff 04/02/24 09:00 Fluticasone/Umeclidin/Vilanter 100-62.5-25 Mcg Ellipta INHALATION DAILY [facility] Ipratropium [place] 0.5 mg 04/01/24 02:00 04/01/24 07:29 Ipratropium Br 0.02% Inh Soln 0.5 Mg/2.5 Ml Vial INHALATION 0.5 mg Q6HRT JOSEMANUEL Administration Levalbuterol HCl 1.25 mg 04/01/24 02:00 04/01/24 07:29 Levalbuterol Neb 1.25 Mg/3 Ml INHALATION 1.25 mg Q6HRT JOSEMANUEL Administration Methylprednisolone Sodium Succinate 125 mg 03/31/24 22:00 04/01/24 06:12 Methylprednisolone Sod Succ 125 Mg Vial IV PUSH 125 mg Q8HR JOSEMANUEL Administration Montelukast Sodium 10 mg 04/01/24 21:00 Montelukast Sodium 10 Mg Tablet PO QHS [facility] Radiology Results: ITS Impressions Chest CTA 03/31/24 18:39 IMPRESSION: Study is severely limited by motion artifact. Segmental and more distal pulmonary arteries not adequately evaluated. No central pulmonary emboli detected. No acute process detected in the chest. Chest X-Ray 03/31/24 18:48 IMPRESSION: Pulmonary opacities may represent respiratory bronchiolitis in the appropriate clinical context. Labs Labs: Laboratory Results - last 24 hr 03/31/24 03/31/24 03/31/24 17:01 17:13 20:09 WBC 14.1 H RBC 4.75 Hgb 15.5 Hct 44.4 MCV 93.5 MCH 32.6 MCHC 34.9 RDW 13.0 Plt Count 293 MPV 8.8 Immature Gran % (Auto) 0.4 Neut % (Auto) 53.4 Lymph % (Auto) 22.7 Bradford % (Auto) 10.0 H Eos % (Auto) 12.6 H Baso % (Auto) 0.9 Lymph # (Auto) 3.20 Bradford # (Auto) 1.4 H Eos # (Auto) 1.8 H Baso # (Auto) 0.1 Abs Immat Gran (auto) 0.06 H Absolute Neuts (auto) 7.5 H Absolute Nucleated RBC 0.000 Nucleated RBC % 0.0 PT 12.6 INR 0.9 APTT 23.8 Puncture Site Left radial ABG pH 7.419 ABG pCO2 31.3 L ABG pO2 66.6 L ABG PO2/FiO2 Ratio 2.08 ABG HCO3 19.8 L ABG O2 Saturation 93.8 L ABG O2 Content 20.3 ABG Base Excess -3.5 A-a Gradient 124.9 Oxyhemoglobin 92.6 Total Hemoglobin 15.6 O2 Delivery Device Bipap O2 Liters/Min Not Reportable FiO2 32 Expiratory Pressure 7 Inspiratory Pressure 14 Sodium 137 Potassium 3.9 Chloride 107 Carbon Dioxide 20 L Anion Gap 10 BUN 15 Creatinine 1.10 Estim Creat Clear Calc 61 Estimated GFR > 60 Glucose 102 Calcium 9.2 Total Bilirubin 0.9 AST 29 ALT 31 Alkaline Phosphatase 142 H Troponin I < 0.012 < 0.012 NT-Pro-B Natriuret Pep 116 H Total Protein 7.0 Albumin 4.5 Lipase 62 Influenza A (RT-PCR) Negative Influenza B (RT-PCR) Negative SARS-CoV-2 RNA (RT-PCR) Negative 03/31/24 04/01/24 22:34 04:48 WBC 12.7 H RBC 4.59 L Hgb 15.1 Hct 43.1 MCV 93.9 MCH 32.9 MCHC 35.0 RDW 13.1 Plt Count 292 MPV 9.0 Immature Gran % (Auto) 0.4 Neut % (Auto) 90.4 H Lymph % (Auto) 8.0 L Bradford % (Auto) 0.9 L Eos % (Auto) 0.1 Baso % (Auto) 0.2 Lymph # (Auto) 1.01 Bradford # (Auto) 0.1 Eos # (Auto) 0.0 Baso # (Auto) 0.0 Abs Immat Gran (auto) 0.05 H Absolute Neuts (auto) 11.5 H Absolute Nucleated RBC 0.000 Nucleated RBC % 0.0 PT INR APTT Puncture Site ABG pH ABG pCO2 ABG pO2 ABG PO2/FiO2 Ratio ABG HCO3 ABG O2 Saturation ABG O2 Content ABG Base Excess A-a Gradient Oxyhemoglobin Total Hemoglobin O2 Delivery Device O2 Liters/Min FiO2 Expiratory Pressure Inspiratory Pressure Sodium 138 Potassium 4.5 Chloride 106 Carbon Dioxide 20 L Anion Gap 12 BUN 19 Creatinine 1.10 Estim Creat Clear Calc 61 Estimated GFR > 60 Glucose 161 H Calcium 9.4 Total Bilirubin AST ALT Alkaline Phosphatase Troponin I < 0.012 NT-Pro-B Natriuret Pep Total Protein Albumin Lipase Influenza A (RT-PCR) Influenza B (RT-PCR) SARS-CoV-2 RNA (RT-PCR) Quality VTE Prophylaxis VTE prophylaxis: pharmacologic ordered (Lovenox 40 mg subQ daily)
[2024-04-01] MEDS: amLODIPine BESYLATE 10 MG TABLET PO (13:48)
[2024-04-01] MEDS: methylPREDNISolone SOD SUCC 40 MG VIAL IV PUSH ×2 (13:48→21:02)
[2024-04-01] MEDS: AZITHROMYCIN 250 MG TABLET 500 MG PO (13:48)
[2024-04-01 16:16] LABS: Alveolar/Arterial O2 Gradient 156.2 mmHg; Base Excess ABG -6.2 mEq/l (+/-2.0); Device NASAL CANNULA; Fractional Inspired Oxygen 36 %; HCO3 ABG 16.4 mEq/l (22.0-26.0); Modified Allen's Test Pass; Oxygen Content ABG 19.2 %vol (16.0-22.0); Oxygen Saturation ABG 94.8 % (95.0-100.0); Oxyhemoglobin 94.2 % THb (90.0-100.0); PCO2 ABG 25.8 mmHg (35.0-45.0); PO2 ABG 70.6 mmHg (80.0-100.0); PO2 FiO2 Ratio Arterial Blood 1.96 %; Site Drawn LEFT RADIAL; Total Hemoglobin 14.5 g/dL (12.0-18.0); pH ABG 7.422 (7.350-7.450)
--- NOTE | 2024-04-01 17:57 | ECG_ITS ---
Test Date: 2024-04-01 18:17:51 Measurements Intervals [place] Rate: 118 P: 56 UT: 162 QRS: 68 QRSD: 86 T: 61 QT: 299 QTc: 419 Interpretive Statements SINUS TACHYCARDIA OTHERWISE NORMAL ECG Electronically Signed On 04-02-2024 08:59:46 SPARE PERSON by Jeferson Bolivar M.D.
--- NOTE | 2024-04-01 17:59 | PC.NURSE ---
Patient c/o increasing sob after eating dinner. O2 4 liters sat 95% and on tele with heart rate 120. Patient has audible wheezes. Dr Stanley notified.
[2024-04-01] MEDS: MORPHINE SULFATE (*CRX) 2 MG/ML INJ IV PUSH (18:52)
[2024-04-01] MEDS: LORazepam INJ (*CRX) 2 MG/ML VIAL 0.5 MG IV PUSH ×2 (19:43→21:41)
[2024-04-01] MEDS: ENOXAPARIN 100 MG/ML SYRINGE 85 MG SUB-Q (20:50)
[2024-04-01] MEDS: levoFLOXacin 750 MG/D5W 150 ML 750 MG/150 ML BAG 100 MG IVPB (20:51)
[2024-04-01] MEDS: MONTELUKAST SODIUM 10 MG TABLET PO (20:52)
[2024-04-01] MEDS: guaiFENesin 12 HR 600 MG TABCR 1200 MG PO (20:52)
[2024-04-01] MEDS: SODIUM CHLORIDE 0.9% IV 1,000 ML 100 ML IV CONT (20:57)
--- NOTE | 2024-04-01 21:36 | PCRCNOTE ---
Patient on continuous bipap. Inhaler not administered.
--- NOTE | 2024-04-01 23:02 | PM.EVENT ---
Event Note Event Note Event Note: Patient transferring to IMU around 18:15 due respiratory distress. Chart reviewed. Patient presented to ER yesterday in distress with wheezing and hypoxia. Lungs were clear to auscultation gland seen by the test engineer nuclear equipment last night. Pulmonary function testing done within the last several weeks was reportedly normal. Subjective: The patient was feeling pretty good today. Not long after eating dinner he began to once again feel short of breath, was tachycardic, and tachypneic with an SpO2 of 95% on room air. Due to work of breathing he was transferred to the IMU on BiPAP. Chest feels a bit tight. He denies pleuritic pain. No globus sensation. Denies dysphagia and concerns for aspiration. He denies environmental exposures. He was recently on a cruise in [place] and has no known sick contacts. Objective: Mildly ill-appearing male sitting up in bed on BiPAP in some distress, mostly due to anxiety as he feels as though he cannot get in a good breath. He is tachypneic with respiratory rates in upper 20s to 30 respirations per minute. He is tachycardic with normal S1-S2. Neck is supple without obvious lymphadenopathy or thyromegaly. No JVD noted. He does not have typical stridor but does have coarse sounding rhonchi in the upper chest upper. Scattered inspiratory and expiratory wheezing heard throughout all lung koch less so in the lower lobes. He has a wet sounding cough. Abdomen is soft with positive bowel sounds. Capillary refill is normal. No cyanosis. No palpable knots or cords. Negative Ady sign bilaterally. No angioedema. Assessment: Hypoxia, respiratory distress, bronchospasm. Plan: Etiology is not entirely clear. He had normal pulmonary function testing a couple of weeks ago and chest CTA was negative for central pulmonary embolus and other acute processes. PE does seem unlikely and as he is currently on BiPAP we will cancel tonight chest CTA as it will likely not be a good study given respiratory motion. Stat nebulizer treatment ordered. Continue scheduled bronchodilators. Mucomyst x1 to see if that helps mobilize his secretions. Pulmonology consulted. Consider ENT consult for laryngoscopy. Critical Care Time Critical Care Time: Yes Total Critical Care Time: 35 Attestation: Due to a high probability of clinically significant, life threatening deterioration, the patient required my highest level of preparedness to intervene emergently and I personally spent this critical care time directly and personally managing the patient. This critical care time included obtaining a history; examining the patient; pulse oximetry; ordering and review of studies; arranging urgent treatment with development of a management plan; evaluation of patient's response to treatment; frequent reassessment; and discussions with other providers. It was exclusive of separately billable procedures and treating other patients and teaching time. Please see Assessment and Plan section and the rest of the note for further information on patient assessment and treatment.
[2024-04-01] MEDS: ACETYLCYSTEINE 20% INHAL SOLN 800 MG/4 ML VIAL 200 MG INHALATION (23:17)
[2024-04-01] MEDS: racEPINEPHrine 2.25% NEBU SOLN 0.5 ML VIAL.NEB INHALATION (23:17)
[2024-04-02] VITALS (23 sets, daily range): BP systolic 112–151; BP diastolic 57–88; PULSE 100–119; RESP 20–26; TEMP 36.4–37.2; O2SAT 92–99
--- NOTE | 2024-04-02 | ECHO_ITS ---
Patient Info Name: Jeferson Comer Age: 68 years : 1955 Gender: Male Ht: 71 in Wt: 187 lbs BSA: 2.07 m2 HR: 102 bpm BP: 132 / 83 mmHg Technical Quality: Fair Exam Date: 04/02/2024 10:20 AM Exam Location: Echo Lab Patient Status: Inpatient Admit Date: 04/01/2024 Staff Ordering Physician: Sarina Stanley MD Loom Doffer: Julian Naylor RDCS Attending Provider: Nia Iverson DO Exam Type: CA echo dop color flow w con Study Info Indications - SOB Complete two-dimensional, color flow and Doppler transthoracic echocardiogram is performed with contrast to opacify the left ventricle and to improve the deliniation of the left ventricle endocardial borders. Contrast/Agitated Saline Contrast/Ag. Saline: Definity Amount: 2.00 ml Existing IV Access: Yes Summary 1. Definity contrast administered improved wall motion interpretation. 2. Left ventricular chamber dimension is normal. 3. Left ventricular systolic function is normal, estimated at 65-70%. 4. The left ventricular diastolic function is grade I diastolic dysfunction. 5. E/e' 7 is not elevated. 6. Left atrial chamber dimension is mildly enlarged. Left Ventricle E/e' 7 is not elevated. Definity contrast administered improved wall motion interpretation. Left ventricular chamber dimension is normal. Left ventricular systolic function is normal, estimated at 65-70%. The left ventricular diastolic function is grade I diastolic dysfunction. Right Ventricle Right ventricular systolic function is normal and with normal TAPSE 2.7 cm. Right ventricular chamber dimension is normal. Left Atria Left atrial chamber dimension is mildly enlarged. Right Atria Right atrial chamber dimension is normal. Aortic Valve The aortic valve is trileaflet. There is no aortic valve stenosis. There is no aortic valve regurgitation. Pulmonic Valve There is no pulmonic regurgitation. Mitral Valve There is no mitral valve stenosis. There is no mitral valve regurgitation. Tricuspid Valve There is no tricuspid valve regurgitation. Pericardium/Pleural There is no pericardial effusion. Inferior Vena Cava Normal inferior vena cava with >50% collapse upon inspiration consistent with normal right atrial pressure, 5 mmHg. Aorta The aortic root size at the sinus of Valsalva is normal. Left Ventricular Outflow Tract Name Value Normal LVOT 2D LVOT Diameter 2.28 cm LVOT Doppler LVOT Peak Gradient 7 mmHg LVOT Mean Gradient 4 mmHg LVOT VTI 27.24 cm LVOT VTI/AV VTI Ratio 0.79 LVOT Stroke Volume 111.37 ml LVOT CO 12.54 l/min LVOT CI 6.05 L/min/m2 Pulmonic Valve Name Value Normal RVOT Doppler RVOT Peak Gradient 6 mmHg PV Doppler PV Peak Gradient 6 mmHg Mitral Valve Name Value Normal MV Doppler MV Decel [place] 4,358.67 cm/s2 MV PHT 0 s MV Area (PHT) 37.59 cm2 4.00-5.00 MV Diastolic Function MV E Peak Velocity 87.96 cm/s MV A Peak Velocity 140.14 cm/s MV E/A 0.63 MV Decel Time 0 s MV Annular TDI MV E/e' (Septal) 8.69 <=8.00 MV E/e' (Lateral) 7.07 <=8.00 MV E/e' (Average) 7.88 Tricuspid Valve Name Value Normal Estimated PAP/RSVP RA Pressure 5 mmHg <=5 Aorta Name Value Normal Ascending Aorta Ao Root Diameter (MM) 3.25 cm Ao Root Diam Index (MM) 1.57 cm/m2 Aortic Valve Name Value Normal AV Doppler AV Peak Velocity 198.95 cm/s AV Peak Gradient 16 mmHg AV Mean Gradient 9 mmHg AV VTI 34.48 cm AV Area (Cont Eq VTI) 3.23 cm2 >=3.00 AV Area (Cont Eq Frank) 2.76 cm2 AV Regurgitation 2D LVOT Area 4.09 cm2 Ventricles Name Value Normal LV Dimensions 2D/MM IVS Diastolic Thickness (2D) 0.98 cm 0.60-1.00 LVID Diastole (2D) 4.38 cm 4.20-5.80 LVIW Diastolic Thickness (2D) 1.46 cm 0.60-1.00 LVID Systole (2D) 2.93 cm 2.50-4.00 LVOT Diameter 2.28 cm LV Mass (2D Cubed) 195.15 g 88.00-224.00 LV Mass Index (2D Cubed) 0.01 g/cm2 0.00-0.01 Relative Wall Thickness (2D) 0.67 LV Fractional Shortening/Ejection Fraction 2D/MM LV Fractional Shortening (2D) 33 % 25-43 LV EF (2D Rodichjerardo) 62 % 52-72 Atria Name Value Normal LA Dimensions LA Dimension (MM) 3.97 cm 3.00-4.10 LA Volume (4C A-L) 58.86 ml LA Volume (BP A-L) 67.84 ml RA Dimensions RA Area (4C) 12.49 cm2 <=18.00 Report Signatures
[2024-04-02 01:24] LABS: MRSA (PCR) NOT DETECTED (NOT DETECTE)
[2024-04-02 01:33] LABS: Influenza A QL RT-PCR Negative (Negative); Influenza B QL RT-PCR Negative (Negative); RSV RNA, RT-PCR Negative (Negative); SARS-CoV-2 RNA PCR Negative (Negative)
[2024-04-02] MEDS: LEVALBUTEROL NEB 1.25 MG/3 ML INHALATION ×4 (03:03→20:46)
[2024-04-02] MEDS: IPRATROPIUM BR 0.02% INH SOLN 0.5 MG/2.5 ML VIAL INHALATION ×4 (03:03→20:46)
[2024-04-02] MEDS: methylPREDNISolone SOD SUCC 40 MG VIAL IV PUSH ×3 (05:56→23:55)
[2024-04-02] MEDS: SODIUM CHLORIDE 0.9% IV 1,000 ML 100 ML IV CONT (05:56)
[2024-04-02 07:45] LABS: Basophils Percent Auto 0.1 % (0.2-1.2); Hematocrit 38.3 % (42.0-52.0); Hemoglobin 13.3 g/dL (14.0-18.0); Immature Granulocyte Absolute 0.16 K/mm3 (0.00-0.031); Immature Granulocyte Percent A 0.8 % (0-0.5); Lymphocytes Absolute Auto 1.18 K/mm3 (0.9-3.2); Lymphocytes Percent Auto 5.8 % (18.3-44.2); Mean Corpuscular HGB Conc 34.7 g/dl (32-36); Mean Corpuscular Hemoglobin 33.2 pg (26-34); Mean Corpuscular Volume 95.5 fl (80-100); Mean Platelet Volume 8.9 fl (7.4-10.4); Neutrophils Percent Auto 88.3 % (45.5-73.1); Platelet Count Result 243 k/mm3 (150-375); Red Blood Count 4.01 M/mm3 (4.6-6.20); Red Cell Distribution Width 13.2 % (11.5-14.5); White Blood Count 20.4 K/mm3 (4.5-10.0)
[2024-04-02 07:56] LABS: Lactic Acid Reflex 0.9 mmol/L (0.7-2.0)
[2024-04-02 07:58] LABS: Alanine Aminotransferase 28 U/L (6-50); Alkaline Phosphatase 106 U/L (38-126); Anion Gap 7 mmol/L (4-12); Aspartate Amino Transferase 24 U/L (17-59); Bilirubin,Total 0.6 mg/dL (0.2-1.3); Blood Urea Nitrogen 27 mg/dL (9-20); Calcium 8.8 mg/dL (8.4-10.2); Carbon Dioxide 20 mmol/L (22-30); Chloride 110 mmol/L (98-107); Estimated CRCL calculation 67 ml/min; Estimated Glomerular Filt Rate > 60; Glucose 156 mg/dL (65-110); Magnesium 2.3 mg/dL (1.6-2.3); Potassium 4.4 mmol/L (3.4-5.0); Sodium 137 mmol/L (137-145)
[2024-04-02] MEDS: FLUTICASONE PROP 44 MCG (*SP) 10.6 GM 2 PUFF INHALATION ×2 (08:22→20:46)
[2024-04-02] MEDS: guaiFENesin 12 HR 600 MG TABCR 1200 MG PO ×2 (09:28→20:16)
[2024-04-02] MEDS: ATORVASTATIN 40 MG TABLET PO (09:28)
[2024-04-02] MEDS: ENOXAPARIN 100 MG/ML SYRINGE 85 MG SUB-Q ×2 (09:28→19:35)
[2024-04-02] MEDS: amLODIPine BESYLATE 10 MG TABLET PO (09:28)
[2024-04-02] MEDS: PANTOPRAZOLE 40 MG TABLET PO (09:28)
[2024-04-02] MEDS: LORATADINE 10 MG TABLET PO (09:29)
[2024-04-02] MEDS: PERFLUTREN LIPID MICROSPHERES 1.5 ML VIAL DILUTED TO 10 ML TOTAL VOLUME IV PUSH (11:05)
--- NOTE | 2024-04-02 11:27 | P.CONPL_ITS ---
Assessment and Plan Assessment and plan (1) Acute hypoxic respiratory failure: Code(s): J96.01 - Acute respiratory failure with hypoxia Status: Acute Assessment and Plan: Requiring O2 at 4 L/min, saturation is high 90s, so this could be weaned. He has a long smoking history, and although his recent PFTs were normal, these are just part of the diagnosis. He will need Home O2 evaluation before discharge. (2) SOB (shortness of breath): Code(s): R06.02 - Shortness of breath Status: Acute Assessment and Plan: (3) Chronic cough: Code(s): R05.3 - Chronic cough Status: Acute Assessment and Plan: Persistent coughing for 4 months, better with each round of antibiotics +/- steroids. He had increased eosinophils wit jang total count of 1020 Jan 13 on arrival at [facility], normalized with steroids starting. (4) Personal history of tobacco use: Code(s): Z87.891 - Personal history of nicotine dependence Status: Acute Assessment and Plan: smoked 15 years , up to 2 ppd, 30 pack year history. none x 1988, however he does smoke marijuana heavily now. this may be an chronic source of airway inflammation he feels better after starting nebulized albuterol-ipratropium and Trelegy at [place] ER visit Jan 14, 2024 (5) Obstructive sleep apnea: Code(s): G47.33 - Obstructive sleep apnea (adult) (pediatric) Status: Acute Assessment and Plan: re-tested a year ago, CPAP 12 cm optimal pressure (6) Mucus plugging of bronchi: Code(s): T17.500A - Unspecified foreign body in bronchus causing asphyxiation, initial encounter Status: Acute Assessment and Plan: Seen on chest CT again today 04/02/24. Mucolytics, hydration, PEP valve, pulmonary hygiene, bronchodilators. (7) History of cannabis abuse: Code(s): F12.11 - Cannabis abuse, in remission Status: Acute Assessment and Plan: He was using daily for years until mid December, stopped when he was admitted in [place]. since then, has used maybe half a dozen times total. Regular smoking of marijuana can involve upper and lower airways, and skin can be involved. Symptoms can include rhinoconjunctivitis, asthma, and rashes with itching and urticaria. Plan plan: alpha-1 phenotype testing; there is a family history of asthma - mother now , sister, brother. He has no sputum to test. CTA 04/02/24 shows again, mucus plugging in bases of lungs. Continue Mucomyst; he says this is really helping break up secretions. If sputum is available, test sputum for AFB, fungi, bacteria. QuantiFERON GOLD testing. ELADIO cascade Peak flow monitoring pre and post nebulized bronchodilators. Continue steroids, now on solumedrol 40 mg IV Q 8 hours. this can be switched to oral prednisone tomorrow. Continue Cornet valve, with end expiratory pressure to clear airway secretions. He has been a heavy marijuana user for years, stopped regular use Jan 2024, has not noticed a big improvement since then. This can cause many of the symptoms that he is experiencing. Request records from entry level java developer with recent testing. Will follow with you. He was being scheduled for office visit, now will be a follow up in the office. History of Present Illness History of Present Illness Consult date: 04/02/24 Requesting physician: Sarina Stanley MD Chief complaint: Hypoxia Narrative: pt was seen Apr 02, 2024 at 11:30 Room 232 Ann Rivero, brother Emil, and sister Ann Rivero, are at the bedside, assist with history. 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 He does not use supplemental oxygen at home. Last night, he was transferred to IMU with respiratory distress, increased respiratory rate and shortness of breath with bronchospasm. He returned from a 7 day trip starting [facility], flew to [place] for a cruise to [facility], last stop was [place] for 6 hours on the beach, back to [place], [facility] 3 hours to [facility]. during the flight, he started having shortness of breath and left sided chest pain, no improvement after using his nebulizer at home. He came to the ER here 03/31 because he could not breathe. He had a respiratory alkalosis with hypoxemia on his arterial blood gas, currently on 4 liters/minute. His CTA was poor quality due to movement artifact however there was no distinct infiltrate, PE, or pleural effusion. On admission his white blood cell count was 12.2, today it elevated 20.4 with 88% neutrophils. He stopped lisinopril a week and a half ago, switched to irbesartan 150 mg a day. 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 Quit tobacco in 1988. He has been a regular marijuana smoker for decades, smokes because he likes it. Says he quit regular use Jan 2024 when he was admitted 5 days at [facility]. Lives with is Ann Rivero. They have travelled extensively in 2023. In November, the camped, and he found a tick, did not have an rash associated with this tick bite. They camped 28 times in their RV in the last year, frequently in the [place] and some caves. He had a visit with allergy-computer forensics analyst recently, pulled up information on the portal. His diagnoses included chronic urticaria, chronic allergic conjunctivitis, allergic rhinitis due to pollen, allergic rhinitis due to animal dander, moderate persistent asthma and COPD. 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 He had (-) ELADIO, rheumatoid factor, TPO antibody, endomysial antibody, elevated tryptase 29, noraml is less than 13. He started having problems with breathing in December 2023. He had a tick bite in November while camping, no rash. Symptoms included coughing, wheezing, shortness of breath. At the time, his cough was so severe that he passed out= cough syncope I reviewed records from [facility], 01/14/2024, in the ER c/o a month of wheezing, coughing and shortness of breath, rash; had completed Augmentin, switched to cefazolin. He had a CT scan on 01/14/2024 in [place] showing mucus plugging and thickened airways. Eosinophil count was 6.5%, total eosinophils 1020, elevated. After first day, eosinophil counts were normal. He had a recent rash, said that he had nothing visible on his skin, however he had itching, had large welts where he scratched his skin. In [place], he reported being inside of caves and [place]; he had testing that was negative for influenza A/B, RSV, extended respiratory pathogen panel which typically has 30 viruses, fungal testing including histoplasmosis,blastomycosis, aspergillus; Urine antigen was negative for Legionella, Strep pneumoniae, was treated with and improved with azithromycin and prednisone during hospitalization, was discharged on Trelegy and DuoNebs. He had a huge benefit using the nebulized bronchodilators. PMH: * Hypertension, recently switched to irbesartan from lisinopril. * Hyperlipidemia * JEISON, repeat split night study Dec 2022= AHI 8.4, karen 86%, optimal pressure 12 cm. * Osteoarthritis with Left knee surgery 2022. * chronic urticaria, allergic rhinitis, allergic conjunctivitis, asthma and COPD diagnosed on [facility] visit within the last few weeks. Started Singulair. DATA * 04/02/2024; echo;Definity contrast administered improved wall motion interpretation. 2. Left ventricular chamber dimension is normal. 3. Left ventricular systolic function is normal, estimated at 65-70%. 4. The left ventricular diastolic function is grade I diastolic dysfunction. 5. E/e' 7 is not elevated. 6. Left atrial chamber dimension is mildly enlarged. * 04/02/2024 CTA ; There is mild scarring at the lung apices. There is a 3 mm nodule in right upper lobe, likely benign. There is mild atelectasis bilat erally. There is mucous plugging in the lower lobes. No pleural effusion. The heart size is normal. No pericardial effusion. There are coronary artery calcifications. There is no pericardial effusion. There is no pulmonary embolus. There is severe cervical and thoracic spondylosis. IMPRESSION: No pulmonary embolus. * He had negative MRSA swab, viral swabs for influenza A/B, RSV, SARS-CoV-2. Review of Systems Review of Systems: He has slight leg/ankle edema in the daytime, wears compression socks at nights sometimes. He has had off and on diarrhea for a year, has a formed stool in the morning, then more loose stools during the day, multiple times. He has not had diarrhea for the last 2 weeks. no blood in his stools. no volunteer work, no exposure to wet basements, no weight loss or joint pains All systems reviewed & are unremarkable except as noted in HPI and below PMFSH Past Medical History Medical History (Updated 04/02/24 @ 21:06 by Amalia Brock MD) Acute bronchitis (~08/2023) Chest x-ray normal on 08/18/2023. Arthritis of right knee Chronic cough COPD (chronic obstructive pulmonary disease) Hospitalized for acute exacerbation while in [place] 01/13-. However normal 03/16/2024 pulmonary function testing Elevated fasting glucose (03/06/24) fasting glucose 106 with GFR 72 on 03/06/2024. Encounter for prostate cancer screening PSA 2.0 on 05/10/2023. Essential (primary) hypertension Gastro-esophageal reflux disease without esophagitis Inflamed acrochordon (~03/2024) red inflamed tag right axilla 0.2 cm excised 03/20/2024 Irritable bowel syndrome with diarrhea Male erectile dysfunction, unspecified Mixed hyperlipidemia Cholesterol 145, triglycerides 99, HDL 50, LDL 75 on 05/10/2023. Cholesterol 162, triglycerides 86, HDL 41, LDL 105 on 03/06/2024. Non-recurrent unilateral inguinal hernia without obstruction or gangrene Obstructive sleep apnea History of JEISON starting 1989 with split night sleep study 01/20/2023 with A HI of 8.4 with oxygen saturation to 86% with titration to 11 cm of water pressure with AirSense 11 CPAP with ResMed AirFit F20 fullface mask 01/20/2023. Osteoarthritis of left knee Overweight (BMI 25.0-29.9) Peripheral neuropathy Personal history of tobacco use 2 packs per day for 23 years with patient stopping 1988. Raynaud's syndrome without gangrene Seasonal allergic rhinitis Stress fracture of femur medial femoral condyle right knee 2022 Urticaria Surgical History Surgical History (Updated 03/31/24 @ 21:12 by Nia Iverson DO) History of hernia repair History of toe surgery Osteochondral defect of condyle of femur S/P left unicompartmental knee replacement October 26, 2021 Status post arthroscopy of left knee (05/11/19) Family History Family History Mother Diabetes mellitus Patient's mother is Family history of malignant neoplasm of brain Father Heart disease Patient's father is Family history of Parkinson's disease Hypertension Sibling Diabetes mellitus Asthma Other Family history of allergic disorder Family history of cardiovascular disease Social History Social History (Updated 04/02/24 @ 21:28 by Amalia Brock MD) Social History: Patient lives with his . 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 He does admit to 3 beers and 3 cocktail weekly. Code status: Full code Surrogate decision maker: 2 grown children Smoking packs per day: 2 Smoking cigarettes per day: 40.0 Years smoked: 15 Smoking pack-years: 30.00 Smoking status: Former smoker Tobacco type: cigarettes Smoking end date: 05/02/88 Alcohol intake: current Drinks per week: 20 Alcohol use details: BEER/COCKTAILS Substance use: former Substance use type: marijuana Last use: Do You Feel Safe in your Home?: Yes Lack of Transportation: No Lack of Food: Never True Current Housing: I Have Housing Concerned About Future Housing: No Difficulty Paying Gas/Electric Bills: No Difficulty Paying for Meds: No Currently Unemployed: No Education: Trade/Vocational Certificate Difficulty w/ Childcare or Family Care: No Living arrangements: with family Occupation/Education: retired Gender identity (if verbalized by the patient): Male Sexual Orientation (if Verbalized by the Patient): Straight or Heterosexual Spiritual care concerns: Yes Agree to blood products: Yes Meds Home Medications and Allergies Home Medications Medication Instructions Recorded Confirmed Type [id number] 250 mg-dha 90 1 cap PO DAILY 10/27/22 03/31/24 History mg-epa 160 bk-ddip-tser-zeax capsule (Ocuvite Adult 50 Plus) CPAP #1 ea 02/11/23 03/31/24 Rx amlodipine 10 mg tablet 10 mg PO . Q.a.m. #90 tabs 08/18/23 03/31/24 Rx atorvastatin 40 mg tablet 40 mg PO DAILY #90 tabs 08/18/23 03/31/24 Rx omeprazole 20 mg capsule,delayed 20 mg PO DAILY #90 caps 08/18/23 03/31/24 Rx release tadalafil 20 mg tablet (Cialis) 20 mg PO DAILY PRN sexual activity 08/18/23 03/31/24 Rx #30 tabs ipratropium 0.5 mg-albuterol 3 mg 3 ml inhalation TID PRN shortness 02/29/24 03/31/24 Rx (2.5 mg base)/3 mL nebulization of breath or wheezing #90 mL soln albuterol sulfate 90 mcg/actuation 1 - 2 puff inhalation Q4-6H PRN 03/06/24 03/31/24 Rx aerosol inhaler shortness of breath or wheezing #8.5 grams cetirizine 10 mg tablet (Zyrtec) 10 mg PO BID allergy symptoms 03/20/24 03/31/24 History famotidine 40 mg tablet 40 mg PO DAILY 03/20/24 03/31/24 History fluticasone fur. 100 mcg-umeclid 1 inh inhalation DAILY #60 ea 03/20/24 03/31/24 Rx 62.5 mcg-vilant 25 mcg inhalat.powder (Trelegy Ellipta) irbesartan 150 mg tablet 150 mg PO DAILY #90 tabs 03/20/24 03/31/24 Rx montelukast 10 mg tablet 10 mg PO QHS 03/20/24 03/31/24 History (Singulair) Allergies Allergy/AdvReac Type Severity Reaction Status Date / Time aspirin Allergy Intermediate EYES Verified 03/31/24 16:48 SWELLING ephedrine Allergy Intermediate Hives Verified 03/31/24 16:48 pseudoephedrine Allergy Intermediate Hives Verified 03/31/24 16:48 Vital Signs Vital Signs - 24 hr 04/01/24 12:00 04/01/24 13:30 04/01/24 13:40 Temperature Pulse Rate 120 H 107 H 111 H Respiratory Rate 20 20 Blood Pressure Pulse Oximetry Oxygen Delivery Oxygen Flow Rate 04/01/24 16:00 04/01/24 14:00 04/01/24 18:50 Temperature 36.8 C Pulse Rate 119 H 120 H 128 H Respiratory Rate 22 H 22 H Blood Pressure 158/78 H Pulse Oximetry 100 100 Oxygen Delivery BiPAP Oxygen Flow Rate 04/01/24 18:54 04/01/24 20:41 04/01/24 20:54 Temperature 36.4 C L Pulse Rate 126 H 114 H 114 H Respiratory Rate 32 H 28 H 28 H Blood Pressure 179/90 H Pulse Oximetry 100 100 Oxygen Delivery BiPAP Oxygen Flow Rate 04/01/24 20:56 04/01/24 20:44 04/01/24 20:00 Temperature 37.1 C Pulse Rate 115 H 118 H 121 H Respiratory Rate 32 H 31 H Blood Pressure 145/81 H Pulse Oximetry 100 Oxygen Delivery Oxygen Flow Rate 04/01/24 22:00 04/01/24 23:20 04/01/24 23:23 Temperature Pulse Rate 114 H 110 H 110 H Respiratory Rate 26 H 24 H Blood Pressure Pulse Oximetry 99 Oxygen Delivery BiPAP Oxygen Flow Rate 04/01/24 23:26 04/02/24 00:00 04/02/24 00:00 Temperature 36.7 C Pulse Rate 113 H 105 H 110 H Respiratory Rate 24 H 21 H Blood Pressure 112/57 L Pulse Oximetry 96 Oxygen Delivery Oxygen Flow Rate 04/02/24 02:00 04/02/24 03:03 04/02/24 03:03 Temperature Pulse Rate 110 H 103 H 103 H Respiratory Rate 23 H 23 H Blood Pressure Pulse Oximetry 99 Oxygen Delivery BiPAP Oxygen Flow Rate 04/02/24 03:11 04/02/24 04:00 04/02/24 04:00 Temperature 37.2 C Pulse Rate 105 H 102 H Respiratory Rate 22 H 23 H Blood Pressure 132/83 Pulse Oximetry 97 Oxygen Delivery BiPAP Oxygen Flow Rate 04/02/24 04:00 04/02/24 06:00 04/02/24 07:30 Temperature 36.7 C Pulse Rate 101 H 106 H 100 Respiratory Rate 22 H Blood Pressure 143/88 H Pulse Oximetry 97 Oxygen Delivery Oxygen Flow Rate 04/02/24 08:26 04/02/24 08:26 04/02/24 08:00 Temperature 36.4 C L Pulse Rate 109 H 109 H 104 H Respiratory Rate 20 20 Blood Pressure 151/85 H Pulse Oximetry 97 97 Oxygen Delivery Nasal Cannula Oxygen Flow Rate 6 04/02/24 08:45 Temperature Pulse Rate 107 H Respiratory Rate 22 H Blood Pressure Pulse Oximetry Oxygen Delivery Oxygen Flow Rate Exam Narrative: GEN: Alert, oriented, not in distress. He is wearing O2 nasal cannula 4 L/min, has mild accessory muscle use, respiratory rate is 22. saturation is 99% on 4 L/minute. He has noisy breathing from his nostrils consistent with rhinitis and congestion. HEENT: pupils are equal, EOMI, symmetrical face; oral membranes moist, Mallampati III airway, generous uvula, nares with white secretions. NECK: Trachea is midline CHEST: Equal air entry, symmetric excursion, faint mild end expiratory wheezes CV: Regular S1S2 no m/g/r ABD : (+) bowel sounds Extremities : no clubbing, cyanosis, or edema, no calf tenderness, no swelling. No rash. PSYCH: normal thought and speech, gait is not tested. Results Laboratory Findings 04/02/24 07:37 04/02/24 07:37 ABG, PT/INR, D-dimer: ABG ABG pH 7.422 (7.350-7.450) 04/01/24 15:58 ABG pCO2 25.8 mmHg (35.0-45.0) L 04/01/24 15:58 ABG pO2 70.6 mmHg (80.0-100.0) L 04/01/24 15:58 ABG O2 Saturation 94.8 % (95.0-100.0) L 04/01/24 15:58 PT/INR, D-dimer PT 12.6 Seconds (11.1-14.7) 03/31/24 17:01 INR 0.9 03/31/24 17:01 Abnormal lab findings: Abnormal Labs 03/31/24 03/31/24 04/01/24 17:01 17:13 04:48 WBC 14.1 H 12.7 H RBC 4.59 L Hgb Hct Immature Gran % (Auto) Neut % (Auto) 90.4 H Lymph % (Auto) 8.0 L [place] % (Auto) 10.0 H 0.9 L Eos % (Auto) 12.6 H Baso % (Auto) [place] # (Auto) 1.4 H Eos # (Auto) 1.8 H Abs Immat Gran (auto) 0.06 H 0.05 H Absolute Neuts (auto) 7.5 H 11.5 H ABG pCO2 31.3 L ABG pO2 66.6 L ABG HCO3 19.8 L ABG O2 Saturation 93.8 L Chloride Carbon Dioxide 20 L 20 L BUN Glucose 161 H Alkaline Phosphatase 142 H NT-Pro-B Natriuret Pep 116 H 04/01/24 04/02/24 15:58 07:37 WBC 20.4 H RBC 4.01 L Hgb 13.3 L Hct 38.3 L Immature Gran % (Auto) 0.8 H Neut % (Auto) 88.3 H Lymph % (Auto) 5.8 L [place] % (Auto) Eos % (Auto) Baso % (Auto) 0.1 L [place] # (Auto) 1.0 H Eos # (Auto) Abs Immat Gran (auto) 0.16 H Absolute Neuts (auto) 18.0 H ABG pCO2 25.8 L ABG pO2 70.6 L ABG HCO3 16.4 L ABG O2 Saturation 94.8 L Chloride 110 H Carbon Dioxide 20 L BUN 27 H Glucose 156 H Alkaline Phosphatase NT-Pro-B Natriuret Pep
[2024-04-02 11:41] LABS: Alveolar/Arterial O2 Gradient 201.2 mmHg; Base Excess ABG -4.1 mEq/l (+/-2.0); Fractional Inspired Oxygen 44 %; HCO3 ABG 18.3 mEq/l (22.0-26.0); Oxygen Content ABG 18.3 %vol (16.0-22.0); Oxygen Saturation ABG 96.7 % (95.0-100.0); Oxyhemoglobin 96.4 % THb (90.0-100.0); PCO2 ABG 26.6 mmHg (35.0-45.0); PO2 ABG 82.2 mmHg (80.0-100.0); PO2 FiO2 Ratio Arterial Blood 1.87 %; Total Hemoglobin 13.5 g/dL (12.0-18.0); pH ABG 7.455 (7.350-7.450)
[2024-04-02 11:42] LABS: Device NASAL CANNULA; Modified Allen's Test Pass; Site Drawn LEFT RADIAL
--- NOTE | 2024-04-02 12:14 | IVDEFINITY ---
Prior to administration of IV Definity the patient was educated on the risks and benefits of the imaging enhancing agent including potential adverse side effects. The patient verbalized understanding. Allergies were verified. No exclusion criteria were identified and at least one of the following inclusion criteria were met: 1) physician request, 2) patient technically difficult to image (per the [place] [employer] guidelines of two or more segments not discernable within the apical view), or 3) questionable left ventricular function. ?
--- NOTE | 2024-04-02 15:42 | PM.IMPN ---
Progress Note: A&P Assessment and Plan (1) Acute hypoxic respiratory failure: Code(s): J96.01 - Acute respiratory failure with hypoxia Status: Acute (2) Gastro-esophageal reflux disease without esophagitis: Code(s): K21.9 - Gastro-esophageal reflux disease without esophagitis Status: Acute (3) Obstructive sleep apnea: Code(s): G47.33 - Obstructive sleep apnea (adult) (pediatric) Status: Acute Plan Acute hypoxic respiratory failure COPD exacerbation r/o Pneumonia Patient is a former smoker, reported that he had Trelegy within 4 hours prior to the test which may have affected result given that patient is wheezing, will treat him as COPD exacerbation CTA chest was negative repeat CTA chest with PE protocol showed mucus plugging Continue Methylprednisone and bronchodilators Currently on 6 liters of oxygen, no oxygen at baseline titrate oxygen Patient still tachycardia, EKG showed ST Currently on Abx, MRSA negative Pulmonology consulted GERD continue home meds JEISON continue CPAP DVT prophylaxis Sq lovenox Subjective Date/time seen: 04/02/24 15:42 Interval history: Comfortable at bedside and patient still tachycardic CTA chest showed mucus plugging otherwise nothing acute Review of Systems Review of Systems: 12 systems were reviewed with pertinent positives and negatives per HPI. Except as documented in the HPI, all other systems were reviewed and are negative. Exam Narrative: Weight 83 kg BMI 25.5 Const: Other: Overweight, no acute distress, lying in bed in the right some a, position with CPAP in place HENMT: Other: CPAP in place, oropharynx not evaluate further, head is normocephalic atraumatic Eyes: Other: Pupils are equal and reactive, no scleral icterus, no conjunctival pallor Neck: Other: Normal neck circumference, supple Resp: Other: Clear to auscultation bilaterally, no increased work of breathing Cardio: Other: Sinus tachycardia, 2+ bilateral radial pedal pulses GI: Other: Soft, nontender, normoactive bowel sounds Skin: Other: No jaundice, no pallor Neuro: Other: Alert oriented x3, speech was clear, cranial nerves were difficult to assess due to presence of BiPAP but no obvious deficit, no gross motor deficits noted during the course of limited exam Extrem: Other: No clubbing, cyanosis or edema Psych: Other: Flat affect, otherwise cooperative Objective Data Vital Signs Vital Signs: Vital Signs - 24 hr 04/01/24 16:00 04/01/24 18:50 04/01/24 18:54 Temperature 97.5 F L Pulse Rate 119 H 128 H 126 H Respiratory Rate 22 H 32 H Blood Pressure 179/90 H Pulse Oximetry 100 100 Oxygen Delivery BiPAP Oxygen Flow Rate 04/01/24 20:41 04/01/24 20:54 04/01/24 20:56 Temperature Pulse Rate 114 H 114 H 115 H Respiratory Rate 28 H 28 H 32 H Blood Pressure Pulse Oximetry 100 Oxygen Delivery BiPAP Oxygen Flow Rate 04/01/24 20:44 04/01/24 20:00 04/01/24 22:00 Temperature 98.7 F Pulse Rate 118 H 121 H 114 H Respiratory Rate 31 H Blood Pressure 145/81 H Pulse Oximetry 100 Oxygen Delivery Oxygen Flow Rate 04/01/24 23:20 04/01/24 23:23 04/01/24 23:26 Temperature Pulse Rate 110 H 110 H 113 H Respiratory Rate 26 H 24 H 24 H Blood Pressure Pulse Oximetry 99 Oxygen Delivery BiPAP Oxygen Flow Rate 04/02/24 00:00 04/02/24 00:00 04/02/24 02:00 Temperature 98.0 F Pulse Rate 105 H 110 H 110 H Respiratory Rate 21 H Blood Pressure 112/57 L Pulse Oximetry 96 Oxygen Delivery Oxygen Flow Rate 04/02/24 03:03 04/02/24 03:03 04/02/24 03:11 Temperature Pulse Rate 103 H 103 H 105 H Respiratory Rate 23 H 23 H 22 H Blood Pressure Pulse Oximetry 99 Oxygen Delivery BiPAP Oxygen Flow Rate 04/02/24 04:00 04/02/24 04:00 04/02/24 04:00 Temperature 98.9 F Pulse Rate 102 H 101 H Respiratory Rate 23 H Blood Pressure 132/83 Pulse Oximetry 97 Oxygen Delivery BiPAP Oxygen Flow Rate 04/02/24 06:00 04/02/24 07:30 04/02/24 08:26 Temperature 98.0 F Pulse Rate 106 H 100 109 H Respiratory Rate 22 H Blood Pressure 143/88 H Pulse Oximetry 97 97 Oxygen Delivery Nasal Cannula Oxygen Flow Rate 6 04/02/24 08:26 04/02/24 08:00 04/02/24 08:45 Temperature 97.5 F L Pulse Rate 109 H 104 H 107 H Respiratory Rate 20 20 22 H Blood Pressure 151/85 H Pulse Oximetry 97 Oxygen Delivery Oxygen Flow Rate 04/02/24 12:00 04/02/24 14:28 04/02/24 14:28 Temperature 97.6 F Pulse Rate 118 H 113 H Respiratory Rate 26 H 24 H Blood Pressure 138/72 Pulse Oximetry 98 96 Oxygen Delivery Nasal Cannula Oxygen Flow Rate 6 04/02/24 14:36 04/02/24 08:00 04/02/24 12:00 Temperature Pulse Rate 109 H Respiratory Rate 22 H Blood Pressure Pulse Oximetry 97 98 Oxygen Delivery Nasal Cannula Nasal Cannula Oxygen Flow Rate 6 6 Intake/Output Intake/Output: Intake & Output 03/30/24 03/31/24 04/01/24 04/02/24 23:59 23:59 23:59 23:59 Intake Total 50 1170 898.3 Output Total 400 Balance 50 1170 498.3 Meds/Results Medications: Active Medications Generic Name Dose Route Start Last Admin Trade Name Freq PRN Reason Stop Dose Admin Amlodipine Besylate 10 mg 04/01/24 13:10 04/02/24 09:28 Amlodipine Besylate 10 Mg Tablet PO 10 mg QAM [facility]SE[facility] Administration Atorvastatin Calcium 40 mg 04/02/24 09:00 04/02/24 09:28 Atorvastatin 40 Mg Tablet PO 40 mg DAILY [facility] Administration Enoxaparin Sodium 85 mg 04/01/24 19:00 04/02/24 09:28 Enoxaparin 100 Mg/Ml Syringe SUB-Q 85 mg Q12H JOSE[facility]UEL Administration Fluticasone Propionate 2 puff 04/01/24 20:00 04/02/24 08:22 Fluticasone Prop 44 Mcg (*Sp) 10.6 Gm INHALATION 2 puff Q12HRT [facility] Administration Fluticasone/Umeclidinium/Vilanterol 1 puff 04/01/24 15:50 Fluticasone/Umeclidin/Vilanter 100-62.5-25 Mcg Ellipta INHALATION DAILY JOSEMANUEL Guaifenesin 1,200 mg 04/01/24 21:00 04/02/24 09:28 Guaifenesin 12 Hr 600 Mg Tabcr PO 1,200 mg Q12HR [facility] Administration Levofloxacin/Dextrose 750 mg in 150 mls @ 100 mls/hr 04/01/24 20:00 04/01/24 20:51 Levaquin 750 Mg/D5w 150 Ml IVPB 100 mls/hr Q24H [facility] Administration Ipratropium [place] 0.5 mg 04/01/24 02:00 04/02/24 14:26 Ipratropium Br 0.02% Inh Soln 0.5 Mg/2.5 Ml Vial INHALATION 0.5 mg Q6HRT [facility] Administration Levalbuterol HCl 1.25 mg 04/01/24 02:00 04/02/24 14:26 Levalbuterol Neb 1.25 Mg/3 Ml INHALATION 1.25 mg Q6HRT [facility]SE[facility] Administration Loratadine 10 mg 04/02/24 09:00 04/02/24 09:29 Loratadine 10 Mg Tablet PO 10 mg QAM JOSEMANUEL Administration Methylprednisolone Sodium Succinate 40 mg 04/01/24 14:00 04/02/24 05:56 Methylprednisolone Sod Succ 40 Mg Vial IV PUSH 40 mg Q8HR [facility] Administration Miscellaneous Information 1 each 04/02/24 00:01 Med Rec Order Clarification XX 05/02/24 00:00 CLARIFY JOSEMANUEL Montelukast Sodium 10 mg 04/01/24 21:00 04/01/24 20:52 Montelukast Sodium 10 Mg Tablet PO 10 mg QHS JOSEMANUEL Administration Pantoprazole Sodium 40 mg 04/02/24 09:00 04/02/24 09:28 Pantoprazole 40 Mg Tablet PO 40 mg DAILY JOSEMANUEL Administration Radiology Results: ITS Impressions Chest X-Ray 04/01/24 16:18 IMPRESSION: Pulmonary opacities may represent senescent change, mild interstitial edema, or mild respiratory bronchiolitis depending on clinical context. Venous Doppler Study 04/01/24 19:20 IMPRESSION: Patent bilateral lower extremity veins. No evidence of deep venous thrombosis. Chest CTA 04/02/24 14:22 IMPRESSION: 1. No pulmonary embolus. Labs Labs: Laboratory Results - last 24 hr 04/01/24 04/01/24 04/01/24 15:58 23:45 23:50 WBC RBC Hgb Hct MCV MCH MCHC RDW Plt Count MPV Immature Gran % (Auto) Neut % (Auto) Lymph % (Auto) [place] % (Auto) Eos % (Auto) Baso % (Auto) Lymph # (Auto) [place] # (Auto) Eos # (Auto) Baso # (Auto) Abs Immat Gran (auto) Absolute Neuts (auto) Absolute Nucleated RBC Nucleated RBC % Puncture Site Left radial ABG pH 7.422 ABG pCO2 25.8 L ABG pO2 70.6 L ABG PO2/FiO2 Ratio 1.96 ABG HCO3 16.4 L ABG O2 Saturation 94.8 L ABG O2 Content 19.2 ABG Base Excess -6.2 A-a Gradient 156.2 Oxyhemoglobin 94.2 Total Hemoglobin 14.5 O2 Delivery Device Nasal cannula O2 Liters/Min 4.0 FiO2 36 Sodium Potassium Chloride Carbon Dioxide Anion Gap BUN Creatinine Estim Creat Clear Calc Estimated GFR Glucose Lactic Acid Calcium Magnesium Total Bilirubin AST ALT Alkaline Phosphatase Total Protein Albumin Nasal MRSA (PCR) Not detected Influenza A (RT-PCR) Negative Influenza B (RT-PCR) Negative RSV (RT-PCR) Negative SARS-CoV-2 RNA (RT-PCR) Negative 04/02/24 04/02/24 04/02/24 00:05 07:37 11:32 WBC 20.4 H RBC 4.01 L Hgb 13.3 L Hct 38.3 L MCV 95.5 MCH 33.2 MCHC 34.7 RDW 13.2 Plt Count 243 MPV 8.9 Immature Gran % (Auto) 0.8 H Neut % (Auto) 88.3 H Lymph % (Auto) 5.8 L [place] % (Auto) 5.0 Eos % (Auto) 0.0 Baso % (Auto) 0.1 L Lymph # (Auto) 1.18 [place] # (Auto) 1.0 H Eos # (Auto) 0.0 Baso # (Auto) 0.0 Abs Immat Gran (auto) 0.16 H Absolute Neuts (auto) 18.0 H Absolute Nucleated RBC 0.000 Nucleated RBC % 0.0 Puncture Site Left radial ABG pH 7.455 H ABG pCO2 26.6 L ABG pO2 82.2 ABG PO2/FiO2 Ratio 1.87 ABG HCO3 18.3 L ABG O2 Saturation 96.7 ABG O2 Content 18.3 ABG Base Excess -4.1 A-a Gradient 201.2 Oxyhemoglobin 96.4 Total Hemoglobin 13.5 O2 Delivery Device Nasal cannula O2 Liters/Min 6.0 FiO2 44 Sodium 137 Potassium 4.4 Chloride 110 H Carbon Dioxide 20 L Anion Gap 7 BUN 27 H Creatinine 1.00 Estim Creat Clear Calc 67 Estimated GFR > 60 Glucose 156 H Lactic Acid 0.9 Calcium 8.8 Magnesium 2.3 Total Bilirubin 0.6 AST 24 ALT 28 Alkaline Phosphatase 106 Total Protein 7.0 Albumin 4.0 Nasal MRSA (PCR) Influenza A (RT-PCR) Influenza B (RT-PCR) RSV (RT-PCR) Cancelled SARS-CoV-2 RNA (RT-PCR) Quality VTE Prophylaxis VTE prophylaxis: pharmacologic ordered (Lovenox 40 mg subQ daily)
[2024-04-02] MEDS: levoFLOXacin 750 MG/D5W 150 ML 750 MG/150 ML BAG 100 MG IVPB (20:08)
[2024-04-02] MEDS: MONTELUKAST SODIUM 10 MG TABLET PO (20:16)
[2024-04-03] VITALS (25 sets, daily range): BP systolic 132–172; BP diastolic 69–96; PULSE 80–120; RESP 20–28; TEMP 36.4–36.6; O2SAT 91–98
[2024-04-03] MEDS: IPRATROPIUM BR 0.02% INH SOLN 0.5 MG/2.5 ML VIAL INHALATION ×3 (02:02→13:53)
[2024-04-03] MEDS: LEVALBUTEROL NEB 1.25 MG/3 ML INHALATION ×4 (02:02→21:00)
[2024-04-03 05:04] LABS: Basophils Percent Auto 0.1 % (0.2-1.2); Hematocrit 40.9 % (42.0-52.0); Hemoglobin 13.6 g/dL (14.0-18.0); Immature Granulocyte Absolute 0.11 K/mm3 (0.00-0.031); Immature Granulocyte Percent A 0.7 % (0-0.5); Lymphocytes Absolute Auto 1.02 K/mm3 (0.9-3.2); Lymphocytes Percent Auto 6.1 % (18.3-44.2); Mean Corpuscular HGB Conc 33.3 g/dl (32-36); Mean Corpuscular Volume 96.2 fl (80-100); Mean Platelet Volume 9.1 fl (7.4-10.4); Monocytes Absolute Auto 0.5 K/mm3 (0.1-0.6); Monocytes Percent Auto 3.2 % (2.6-8.5); Neutrophils Percent Auto 89.9 % (45.5-73.1); Platelet Count Result 266 k/mm3 (150-375); Red Blood Count 4.25 M/mm3 (4.6-6.20); Red Cell Distribution Width 12.9 % (11.5-14.5); White Blood Count 16.7 K/mm3 (4.5-10.0)
[2024-04-03 05:16] LABS: Lactic Acid Reflex 2.3 mmol/L (0.7-2.0)
[2024-04-03 05:24] LABS: Alanine Aminotransferase 29 U/L (6-50); Albumin Level 4.2 g/dL (3.5-5.1); Alkaline Phosphatase 104 U/L (38-126); Anion Gap 9 mmol/L (4-12); Aspartate Amino Transferase 23 U/L (17-59); Bilirubin,Total 0.6 mg/dL (0.2-1.3); Blood Urea Nitrogen 22 mg/dL (9-20); Calcium 9.1 mg/dL (8.4-10.2); Carbon Dioxide 22 mmol/L (22-30); Chloride 108 mmol/L (98-107); Estimated CRCL calculation 73 ml/min; Estimated Glomerular Filt Rate > 60; Glucose 170 mg/dL (65-110); Magnesium 2.3 mg/dL (1.6-2.3); Potassium 4.2 mmol/L (3.4-5.0); Sodium 139 mmol/L (137-145)
[2024-04-03] MEDS: methylPREDNISolone SOD SUCC 40 MG VIAL IV PUSH ×3 (06:40→20:57)
[2024-04-03] MEDS: ENOXAPARIN 100 MG/ML SYRINGE 85 MG SUB-Q (06:40)
[2024-04-03] MEDS: FLUTICASONE PROP 44 MCG (*SP) 10.6 GM 2 PUFF INHALATION ×2 (07:52→21:00)
[2024-04-03 08:00] LABS: Reflex Lactic Acid Yes or No Add Lactic
[2024-04-03 09:00] LABS: Lactic Acid 3.5 mmol/L (0.7-2.0)
[2024-04-03] MEDS: ATORVASTATIN 40 MG TABLET PO (09:37)
[2024-04-03] MEDS: guaiFENesin 12 HR 600 MG TABCR 1200 MG PO ×2 (09:37→20:53)
[2024-04-03] MEDS: PANTOPRAZOLE 40 MG TABLET PO (09:37)
[2024-04-03] MEDS: amLODIPine BESYLATE 10 MG TABLET PO (09:37)
[2024-04-03] MEDS: LORATADINE 10 MG TABLET PO (09:37)
--- NOTE | 2024-04-03 16:02 | P.PNIM_ITS ---
Progress Note: A&P Assessment and Plan (1) Acute hypoxic respiratory failure: Code(s): J96.01 - Acute respiratory failure with hypoxia Status: Acute Assessment and Plan: * Pulmonology consulted * Chest CTA negative for PE * Doppler study negative for DVT * Chest x-ray showing opacities * Levaquin for possible community-acquired pneumonia * Continue Xopenex, Trelegy, and Atrovent * Continue Solu-Medrol * Continue Mucinex, singular, Claritin * Continue pep valve and incentive spirometry * PFT was normal * Eosinophils were elevated on admission * History of syncopal coughing and mucus plugging * Will keep an IMU for now (2) Gastro-esophageal reflux disease without esophagitis: Code(s): K21.9 - Gastro-esophageal reflux disease without esophagitis Status: Acute Assessment and Plan: * Continue Protonix (3) Obstructive sleep apnea: Code(s): G47.33 - Obstructive sleep apnea (adult) (pediatric) Status: Acute Assessment and Plan: * Continue CPAP at night (4) Chronic cough: Code(s): R05.3 - Chronic cough Status: Acute Assessment and Plan: * History of syncopal coughing * ENT consult placed for possible vocal cord dysfunction however we do not have ENT services, will need to address this on an outpatient basis (5) History of cannabis abuse: Code(s): F12.11 - Cannabis abuse, in remission Status: Acute Assessment and Plan: * Was a heavy marijuana smoker however patient states that he quit back in December during his hospitalization in [place] however he admits to using marijuana a few times since then. (6) Tachycardia: Code(s): R00.0 - Tachycardia, unspecified Status: Acute Assessment and Plan: * Likely due to Xopenex/albuterol/steroid use * Heart rate 100-130 * Continue cardiac monitoring * Will give low-dose metoprolol to help with heart rate to see if this improves * Already on Xopenex (7) Mixed hyperlipidemia: Code(s): E78.2 - Mixed hyperlipidemia Status: Acute Assessment and Plan: * Continue Irbesartan and atorvastatin (8) Hypertension: Qualifiers: Hypertension type: primary hypertension Qualified Code(s): I10 - Essential (primary) hypertension Code(s): I10 - Essential (primary) hypertension Status: Acute Assessment and Plan: * Blood pressures ranging 132/69 to 158/96 * Continue amlodipine * No leg swelling noted Time Spent With Patient Time with patient: 25 - 35 minutes Subjective Date/time seen: 04/03/24 16:02 Interval history: Interval history: This is a 68-year-old male who presented to the hospital on 03/31/2024 with shortness of breath and hypoxia. Patient has been having shortness of breath since July of this past year. Workup in the hospital included a chest x-ray which showed pulmonary opacities may represent mild interstitial edema or mild respiratory bronchiolitis. Initial labs showed a white blood cell count of 14.1, eosinophils 12.6, bicarb 20, alkaline phosphate 142, troponin negative x2, proBNP 116. Respiratory panel was negative for influenza a and B, RSV, COVID. Blood cultures were obtained and are pending. Patient was put on Levaquin for possible community-acquired pneumonia, Xopenex breathing treatments, Atrovent and steroids while in the ED. On 04/01/2024 patient went into respiratory distress and had wheezing and hypoxia. He had a chest CTA which was negative for PE, bilateral Dopplers which was negative for DVT. Pulmonology was consulted. An echocardiogram was obtained which showed normal LV systolic function with an estimated EF of 65-70%, grade 1 diastolic dysfunction otherwise normal. He also had PFT as an outpatient which was normal. He does wear a CPAP at night for obstructive sleep apnea and currently has a pressure setting of 12 cm optimal pressure. He has had a chronic cough for the past 4 months and has had multiple rounds of antibiotics and steroids which seems to get the cough better for short time but did not get rid of it completely. He has done a lot of traveling in the past year and was traveling to [place] however whenever he got to [place] he had an exacerbation with coughing fits that caused him to be syncopal. He was taken to a hospital in [place] for further evaluation. He had a very extensive workup and was started on DuoNebs and Trelegy which improved his symptoms. Prior to this exacerbation patient was smoking marijuana heavily which could have contributed to his symptoms. Since that time back in December he had stop smoking marijuana however has not had much improvement with his symptoms since that time. He also is a former cigarette smoker however quit that 15 years ago. Patient was started on steroids, pep valve, DuoNebs, CPAP and IMU status for now. Pulmonary was consulted for further evaluation and for further care/follow-up on an outpatient basis. See pulmonary note for further details about previous workup. Subjective: Patient denies any fever, chills, nausea, vomiting, diarrhea, abdominal pain, chest pain. He does report shortness of breath with exertion and with long conversations he gets winded. He is currently on 4 L nasal cannula in normally is on room air at home. He wears a CPAP at night however required BiPAP last night due to acute respiratory distress/ exacerbation. Labs and imaging reviewed. Review of Systems Review of Systems: All systems reviewed & are unremarkable except as noted in HPI and below Constitutional: Constitutional: Reports as per HPI and Reports no additional constitutional complaints Eyes: Eyes: Reports as per HPI and Reports no additional eye complaints ENT: Reports system reviewed and no additional complaints, except as documented and Reports as per HPI Cardiovascular: Cardiovascular: Reports as per HPI and Reports no additional cardiovascular complaints Respiratory: Respiratory: Reports as per HPI and Reports no additional respiratory complaints Gastrointestinal: Gastrointestinal: Reports as per HPI and Reports no additional gastrointestinal complaints Genitourinary: Genitourinary: Reports no additional male genitourinary complaints and Reports as per HPI Musculoskeletal: Musculoskeletal: Reports no additional musculoskeletal complaints and Reports as per HPI Integumentary/Breasts: Skin/Breast: Reports system reviewed and no additional complaints, except as docu and Reports as per HPI Neurologic: Reports system reviewed and no additional complaints, except as documented and Reports as per HPI Psychiatric: Psychiatric: Reports no additional psychiatric complaints and Reports as per HPI Exam Narrative: General: In no acute distress, well nourished Head: atraumatic, no encephalopathy Eyes:PERRLA, sclera clear ENT: moist mucous membranes, nasal passages clear Neck: supple, no JVD, no adenopathy, trachea midline Cardiac: Normal S1 and S2. RRR, tachycardic, No murmur, gallops or friction rubs, peripheral pulses intact. Respiratory: Mild wheezing bilaterally, no other adventitious lung sounds, currently on 4 L nasal cannula Gastrointestinal: soft, non-distended, non-tender, normoactive bowel sounds. : voiding without difficulty. Extremities: moves all extremities well, no edema, good ROM, strength 5/5 Skin: clean, dry, intact. No wounds or lesions. Neuro: Alert and oriented x4, cranial nerves intact, no neuro deficits. Psych: normal mood, normal affect, interactive Objective Data Vital Signs Vital Signs: Vital Signs - 24 hr 04/02/24 17:39 04/02/24 20:46 04/02/24 20:46 Temperature Pulse Rate 118 H 115 H 115 H Respiratory Rate 20 20 Blood Pressure Pulse Oximetry 96 Oxygen Delivery Nasal Cannula Oxygen Flow Rate 6 04/02/24 20:54 04/02/24 21:03 04/02/24 23:08 Temperature 98.8 F Pulse Rate 118 H 115 H 102 H Respiratory Rate 24 H 22 H 23 H Blood Pressure 149/74 H Pulse Oximetry 92 96 Oxygen Delivery BiPAP Oxygen Flow Rate 04/03/24 00:43 04/02/24 20:00 04/03/24 00:00 Temperature 97.7 F Pulse Rate 103 H Respiratory Rate 24 H Blood Pressure 132/69 Pulse Oximetry 98 94 98 Oxygen Delivery Nasal Cannula Nasal Cannula Oxygen Flow Rate 6 6 04/03/24 02:02 04/03/24 02:02 04/03/24 02:06 Temperature Pulse Rate 80 98 Respiratory Rate 21 H 21 H Blood Pressure Pulse Oximetry 96 96 Oxygen Delivery BiPAP Oxygen Flow Rate 04/02/24 20:00 04/02/24 22:00 04/03/24 00:00 Temperature Pulse Rate 115 H 115 H 105 H Respiratory Rate Blood Pressure Pulse Oximetry Oxygen Delivery Oxygen Flow Rate 04/03/24 02:00 04/03/24 04:48 04/03/24 04:00 Temperature 97.8 F Pulse Rate 97 110 H Respiratory Rate 24 H Blood Pressure 158/96 H Pulse Oximetry 95 95 Oxygen Delivery Nasal Cannula Oxygen Flow Rate 6 04/03/24 04:00 04/03/24 06:00 04/03/24 07:52 Temperature Pulse Rate 100 99 Respiratory Rate Blood Pressure Pulse Oximetry 95 Oxygen Delivery Nasal Cannula Oxygen Flow Rate 4 04/03/24 07:52 04/03/24 08:05 04/03/24 08:00 Temperature 97.7 F Pulse Rate 101 H 102 H 101 H Respiratory Rate 24 H 24 H 20 Blood Pressure 157/89 H Pulse Oximetry 96 Oxygen Delivery Oxygen Flow Rate 04/03/24 12:00 04/03/24 13:53 04/03/24 14:06 Temperature 97.5 F L Pulse Rate 108 H 106 H 107 H Respiratory Rate 28 H 24 H 24 H Blood Pressure 152/86 H Pulse Oximetry 92 Oxygen Delivery Oxygen Flow Rate Intake/Output Intake/Output: Intake & Output 03/31/24 04/01/24 04/02/24 04/03/24 23:59 23:59 23:59 23:59 Intake Total 50 1320 1638.3 1720 Output Total 400 1200 Balance 50 1320 1238.3 520 Meds/Results Medications: Active Medications Generic Name Dose Route Start Last Admin Trade Name Freq PRN Reason Stop Dose Admin Amlodipine Besylate 10 mg 04/01/24 13:10 04/03/24 09:37 Amlodipine Besylate 10 Mg Tablet PO 10 mg QAM JOSEMANUEL Administration Atorvastatin Calcium 40 mg 04/02/24 09:00 04/03/24 09:37 Atorvastatin 40 Mg Tablet PO 40 mg DAILY JOSEMANUEL Administration Enoxaparin Sodium 85 mg 04/01/24 19:00 04/03/24 06:40 Enoxaparin 100 Mg/Ml Syringe SUB-Q 85 mg Q12H JOSEMANUEL Administration Fluticasone Propionate 2 puff 04/01/24 20:00 04/03/24 07:52 Fluticasone Prop 44 Mcg (*Sp) 10.6 Gm INHALATION 2 puff Q12HRT [facility] Administration Fluticasone/Umeclidinium/Vilanterol 1 puff 04/01/24 15:50 Fluticasone/Umeclidin/Vilanter 100-62.5-25 Mcg Ellipta INHALATION DAILY [facility] Guaifenesin 1,200 mg 04/01/24 21:00 04/03/24 09:37 Guaifenesin 12 Hr 600 Mg Tabcr PO 1,200 mg Q12HR [facility] Administration Levofloxacin/Dextrose 750 mg in 150 mls @ 100 mls/hr 04/01/24 20:00 04/02/24 20:08 Levaquin 750 Mg/D5w 150 Ml IVPB 100 mls/hr Q24H JOSEMANUEL Administration Ipratropium [place] 0.5 mg 04/01/24 02:00 04/03/24 13:53 Ipratropium Br 0.02% Inh Soln 0.5 Mg/2.5 Ml Vial INHALATION 0.5 mg Q6HRT JOSEMANUEL Administration Levalbuterol HCl 1.25 mg 04/01/24 02:00 04/03/24 13:53 Levalbuterol Neb 1.25 Mg/3 Ml INHALATION 1.25 mg Q6HRT JOSEMANUEL Administration Loratadine 10 mg 04/02/24 09:00 04/03/24 09:37 Loratadine 10 Mg Tablet PO 10 mg QAM JOSEMANUEL Administration Methylprednisolone Sodium Succinate 40 mg 04/01/24 14:00 04/03/24 15:22 Methylprednisolone Sod Succ 40 Mg Vial IV PUSH 40 mg Q8HR JOSEMANUEL Administration Miscellaneous Information 1 each 04/02/24 00:01 04/02/24 20:04 Med Rec Order Clarification XX 05/02/24 00:00 Not Given CLARIFY JOSEMANUEL Montelukast Sodium 10 mg 04/01/24 21:00 04/02/24 20:16 Montelukast Sodium 10 Mg Tablet PO 10 mg QHS JOSEMANUEL Administration Pantoprazole Sodium 40 mg 04/02/24 09:00 04/03/24 09:37 Pantoprazole 40 Mg Tablet PO 40 mg DAILY JOSEMANUEL Administration Radiology Results: ITS Impressions Chest X-Ray 04/01/24 16:18 IMPRESSION: Pulmonary opacities may represent senescent change, mild interstitial edema, or mild respiratory bronchiolitis depending on clinical context. Venous Doppler Study 04/01/24 19:20 IMPRESSION: Patent bilateral lower extremity veins. No evidence of deep venous thrombosis. Chest CTA 04/02/24 14:22 IMPRESSION: 1. No pulmonary embolus. Labs Labs: Laboratory Results - last 24 hr 04/03/24 04/03/24 04:38 08:27 WBC 16.7 H RBC 4.25 L Hgb 13.6 L Hct 40.9 L MCV 96.2 MCH 32.0 MCHC 33.3 RDW 12.9 Plt Count 266 MPV 9.1 Immature Gran % (Auto) 0.7 H Neut % (Auto) 89.9 H Lymph % (Auto) 6.1 L [place] % (Auto) 3.2 Eos % (Auto) 0.0 Baso % (Auto) 0.1 L Lymph # (Auto) 1.02 [place] # (Auto) 0.5 Eos # (Auto) 0.0 Baso # (Auto) 0.0 Abs Immat Gran (auto) 0.11 H Absolute Neuts (auto) 15.0 H Absolute Nucleated RBC 0.000 Nucleated RBC % 0.0 Sodium 139 Potassium 4.2 Chloride 108 H Carbon Dioxide 22 Anion Gap 9 BUN 22 H Creatinine 0.90 Estim Creat Clear Calc 73 Estimated GFR > 60 Glucose 170 H Lactic Acid 2.3 H 3.5 H Calcium 9.1 Magnesium 2.3 Total Bilirubin 0.6 AST 23 ALT 29 Alkaline Phosphatase 104 Total Protein 7.0 Albumin 4.2 Quality VTE Prophylaxis VTE prophylaxis: pharmacologic ordered (Lovenox 40 mg subQ daily)
--- NOTE | 2024-04-03 19:15 | P.PNPL_ITS ---
Progress Note: A&P Assessment and Plan (1) Acute hypoxic respiratory failure: Code(s): J96.01 - Acute respiratory failure with hypoxia Status: Acute Assessment and Plan: Requiring O2 at 4 L/min, saturation is high 90s, so this could be weaned. He has a long smoking history, and although his recent PFTs were normal, these are just part of the diagnosis. He will need Home O2 evaluation before discharge. (2) SOB (shortness of breath): Code(s): R06.02 - Shortness of breath Status: Acute Assessment and Plan: For months, much worse on admission, improving. (3) Chronic cough: Code(s): R05.3 - Chronic cough Status: Acute Assessment and Plan: Persistent coughing for 4 months, better with each round of antibiotics +/- steroids. He had increased eosinophils with a total eosinophil count of 1020 Jan 14, 2024 on arrival at [facility], and the eosinophils normalized with steroids starting. This is expected. Eos have been normal this a dmission. (4) Personal history of tobacco use: Code(s): Z87.891 - Personal history of nicotine dependence Status: Acute Assessment and Plan: smoked 15 years , up to 2 ppd, 30 pack year history. none x 1988, however he does smoke marijuana heavily now. this may be an chronic source of airway inflammation he feels better after starting nebulized albuterol-ipratropium and Trelegy at [place] [facility] visit Jan 14, 2024 I stopped ipratropium as he is on Trelegy, already has a LAMA (5) Obstructive sleep apnea: Code(s): G47.33 - Obstructive sleep apnea (adult) (pediatric) Status: Acute Assessment and Plan: re-tested a year ago, CPAP 12 cm optimal pressure; he has his own CPAP machine here, wants to use tonight, good plan (6) Mucus plugging of bronchi: Code(s): T17.500A - Unspecified foreign body in bronchus causing asphyxiation, initial encounter Status: Acute Assessment and Plan: Seen on chest CT again 04/02/24. Mucolytics, hydration, PEP valve, pulmonary hygiene, bronchodilators. (7) History of cannabis abuse: Code(s): F12.11 - Cannabis abuse, in remission Status: Acute Assessment and Plan: He was using daily for years until mid December, stopped when he was admitted in [place]. Since then, has used maybe half a dozen times total. Regular smoking of marijuana can involve upper and lower airways, and skin can be involved. Symptoms can include rhinoconjunctivitis, asthma, and rashes with itching and urticaria. He says that he is NOT using regularly. Plan plan: 1) He can use his home CPAP 11 cm. He is happy to have this option as he does not need to struggle with getting acclimated to our device when he has his own machine here. 2) Medications: he says that today, he was given albuterol inhaler and a nebulized albuterol treatment at the same time. He asked if he can do this at home. No, not recommended. These are the exact same meds, so take one or the other, but not both at the same time. His med list shows lev-albuterol nebulized and Trelegy, controller inhaler, no albuterol inhaler. 3) I stopped nebulized ipratropium; he is on Trelegy, this has a LAMA, so nebulized ipratropium is a duplication. Too much LAMA is not good. 4) Blood pressure remains higher than ideal, [id number]. Some of the increase in blood pressure is steroids, sickness, etc. He just started metoprolol 12.5 mg Q 12 hours, and this may help with BP and HR which is high too. He is on irbesartan 150 mg and amlodipine 10 mg. He may benefit from addition of HCTZ with irbesartan. Start 12.5 mg in the am. 5) VQ will be ordered. This is to evaluate for chronic thromboembolic disease with months of coughing & shortness of breath. 6) medical records secretary is working on getting the aniline press worker's note. The patient had extensive evaluation, testing. 7) He had increased trouble with breathing after eating dinner Tuesday night, possible food allergy or aspiration?? 8) Alpha-1 phenotype testing is pending; there is a family history of asthma - mother now , sister, and brother. 9) He has no sputum to test. CTA 04/02/24 shows again, mucus plugging in bases of lungs. Continue Mucomyst; he says this is really helping break up secretions. If sputum is available, test sputum for AFB, fungi, bacteria. 10) QuantiFERON GOLD testing is pending. 11) ELADIO cascade is negative. 12) Decrease solumedrol to 40 mg IV Q 12 hours, change to oral tomorrow. 13) Peak flow monitoring pre and post nebulized bronchodilators. Pre = 150 L/min, post bronchodilator is 200 L/min, very low. 14) Continue Cornet valve, with end expiratory pressure to clear airway secretions. 15) He needs nasal saline. Lots of noisy nasal secretions. He has been a heavy marijuana user for years, stopped regular use Jan 2024, has not noticed a big improvement since then. Chronic marijuana use can cause many of the symptoms that he is experiencing. Subjective Date/time seen: 04/03/24 19:15 Interval history: 04/03/24; f/u cough, shortness of breath, mucus plugging; he says he turned corner today, had a nebulized treatment, seems better. He has a lot of questions. we went over these, orders entered. He wants to use his own CPAP, has in the room. Asked questions about his inhaled meds, answered. BP still high, metoprolol 12.5 mg po Q 12 hours started, and I started HCTZ 12.5 mg in the am. His peak flows are low, 150 before bronchodilator, 200 mg afterwards. 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 He does not use supplemental oxygen at home. Last night, he was transferred to IMU with respiratory distress, increased respiratory rate and shortness of breath with bronchospasm. He returned from a 7 day trip starting [facility], fle to [place] for a cruise to [facility], last stop was [place] for 6 hours on the beach, back to [place], fle 3 hours to [facility]. during the flight, he started having shortness of breath and left sided chest pain, no improvement after using his nebulizer at home. He came to the ER here 03/31 because he could not breathe. He had a respiratory alkalosis with hypoxemia on his arterial blood gas, currently on 4 liters/minute. His CTA was poor quality due to movement artifact however there was no distinct infiltrate, PE, or pleural effusion. On admission his white blood cell count was 12.2, today it elevated 20.4 with 88% neutrophils. He stopped lisinopril a week and a half ago, switched to irbesartan 150 mg a day. 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 Quit tobacco in 1988. He has been a regular marijuana smoker for decades, smokes because he likes it. Says he quit regular use Jan 2024 when he was admitted 5 days at [facility]. Lives with is Ann Rivero. They have travelled extensively in 2023. In November, the camped, and he found a tick, did not have an rash associated with this tick bite. They camped 28 times in their RV in the last year, frequently in the [place] and some [place]. He had a visit with allergy-chemical process analyst recently, pulled up information on the portal. His diagnoses included chronic urticaria, chronic allergic conjunctivitis, allergic rhinitis due to pollen, allergic rhinitis due to animal dander, moderate persistent asthma and COPD. 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 He had (-) ELADIO, rheumatoid factor, TPO antibody, endomysial antibody, elevated tryptase 29, noraml is less than 13. He started having problems with breathing in December 2023. He had a tick bite in November while camping, no rash. Symptoms included coughing, wheezing, shortness of breath. At the time, his cough was so severe that he passed out= cough syncope I reviewed records from [facility], 01/14/2024, in the ER c/o a month of wheezing, coughing and shortness of breath, rash; had completed Augmentin, switched to cefazolin. He had a CT scan on 01/14/2024 in [place] showing mucus plugging and thickened airways. Eosinophil count was 6.5%, total eosinophils 1020, elevated. After first day, eosinophil counts were normal. He had a recent rash, said that he had nothing visible on his skin, however he had itching, had large welts where he scratched his skin. In [place], he repor marty being inside of caves and [place]; he had testing that was negative for influenza A/B, RSV, extended respiratory pathogen panel which typically has 30 viruses, fungal testing including histoplasmosis,blastomycosis, aspergillus; Urine antigen was negative for Legionella, Strep pneumoniae, was treated with and improved with azithromycin and prednisone during hospitalization, was discharged on Trelegy and DuoNebs. He had a huge benefit using the nebulized bronchodilators. PMH: * Hypertension, recently switched to irbesartan from lisinopril. * Hyperlipidemia * JEISON, repeat split night study Dec 2022= AHI 8.4, karen 86%, optimal pressure 12 cm. * Osteoarthritis with Left knee surgery 2022. * chronic urticaria, allergic rhinitis, allergic conjunctivitis, asthma and COPD diagnosed on [employer] visit within the last few weeks. Started Singulair. DATA * 04/02/2024; echo;Definity contrast administered improved wall motion interpretation. 2. Left ventricular chamber dimension is normal. 3. Left ventricular systolic function is normal, estimated at 65-70%. 4. The left ventricular diastolic function is grade I diastolic dysfunction. 5. E/e' 7 is not elevated. 6. Left atrial chamber dimension is mildly enlarged. * 04/02/2024 CTA ; There is mild scarring at the lung apices. There is a 3 mm nodule in right upper lobe, likely benign. There is mild atelectasis bilaterally. There is mucous plugging in the lower lobes. No pleural effusion. The heart size is normal. No pericardial effusion. There are coronary artery calcifications. There is no pericardial effusion. There is no pulmonary embolus. There is severe cervical and thoracic spondylosis. IMPRESSION: No pulmonary embolus. * He had negative MRSA swab, viral swabs for influenza A/B, RSV, SARS-CoV-2. Exam Narrative: GEN: Alert, oriented, not in distress. He is wearing O2 nasal cannula 4 L/min, has less accessory muscle use, respiratory rate is 22-24. Saturation is 99% on 4 L/minute. He has noisy breathing from his nostrils consistent with rhinitis and congestion. HEENT: pupils are equal, EOMI, symmetrical face; oral membranes moist, Mallampati III airway, generous uvula, nares with white secretions. NECK: Trachea is midline CHEST: Equal air entry, symmetric excursion, fewer faint expiratory wheezes CV: Regular S1S2 no m/g/r ABD : (+) bowel sounds Extremities : no clubbing, cyanosis, or edema, no calf tenderness, no swelling. No rash. PSYCH: normal thought and speech, gait is not tested. Objective Data Vital Signs Vital Signs: Vital Signs - 24 hr 04/02/24 20:46 04/02/24 20:46 04/02/24 20:54 Temperature 37.1 C Pulse Rate 115 H 115 H 118 H Respiratory Rate 20 20 24 H Blood Pressure 149/74 H Pulse Oximetry 96 92 Oxygen Delivery Nasal Cannula Oxygen Flow Rate 6 04/02/24 21:03 04/02/24 23:08 04/03/24 00:43 Temperature 36.5 C Pulse Rate 115 H 102 H 103 H Respiratory Rate 22 H 23 H 24 H Blood Pressure 132/69 Pulse Oximetry 96 98 Oxygen Delivery BiPAP Oxygen Flow Rate 04/02/24 20:00 04/03/24 00:00 04/03/24 02:02 Temperature Pulse Rate Respiratory Rate Blood Pressure Pulse Oximetry 94 98 96 Oxygen Delivery Nasal Cannula Nasal Cannula Oxygen Flow Rate 6 6 04/03/24 02:02 04/03/24 02:06 04/02/24 20:00 Temperature Pulse Rate 80 98 115 H Respiratory Rate 21 H 21 H Blood Pressure Pulse Oximetry 96 Oxygen Delivery BiPAP Oxygen Flow Rate 04/02/24 22:00 04/03/24 00:00 04/03/24 02:00 Temperature Pulse Rate 115 H 105 H 97 Respiratory Rate Blood Pressure Pulse Oximetry Oxygen Delivery Oxygen Flow Rate 04/03/24 04:48 04/03/24 04:00 04/03/24 04:00 Temperature 36.6 C Pulse Rate 110 H 100 Respiratory Rate 24 H Blood Pressure 158/96 H Pulse Oximetry 95 95 Oxygen Delivery Nasal Cannula Oxygen Flow Rate 6 04/03/24 06:00 04/03/24 07:52 04/03/24 07:52 Temperature Pulse Rate 99 101 H Respiratory Rate 24 H Blood Pressure Pulse Oximetry 95 Oxygen Delivery Nasal Cannula Oxygen Flow Rate 4 04/03/24 08:05 04/03/24 08:00 04/03/24 12:00 Temperature 36.5 C 36.4 C L Pulse Rate 102 H 101 H 108 H Respiratory Rate 24 H 20 28 H Blood Pressure 157/89 H 152/86 H Pulse Oximetry 96 92 Oxygen Delivery Oxygen Flow Rate 04/03/24 13:53 04/03/24 14:06 04/03/24 16:00 Temperature 36.4 C Pulse Rate 106 H 107 H 105 H Respiratory Rate 24 H 24 H 24 H Blood Pressure 154/89 H Pulse Oximetry 94 Oxygen Delivery Oxygen Flow Rate 04/03/24 08:00 04/03/24 12:00 04/03/24 16:00 Temperature Pulse Rate Respiratory Rate Blood Pressure Pulse Oximetry 96 92 94 Oxygen Delivery Nasal Cannula Nasal Cannula Nasal Cannula Oxygen Flow Rate 4 4 4 04/03/24 08:00 04/03/24 10:00 04/03/24 12:00 Temperature Pulse Rate 96 120 H 109 H Respiratory Rate Blood Pressure Pulse Oximetry Oxygen Delivery Oxygen Flow Rate 04/03/24 14:00 04/03/24 16:00 04/03/24 18:00 Temperature Pulse Rate 105 H 106 H 104 H Respiratory Rate Blood Pressure Pulse Oximetry Oxygen Delivery Oxygen Flow Rate Intake/Output Intake/Output: Intake & Output 03/31/24 04/01/24 04/02/24 04/03/24 23:59 23:59 23:59 23:59 Intake Total 50 1320 1638.3 2360 Output Total 400 1203 Balance 50 1320 1238.3 1157 Meds/Results Medications: Active Medications Generic Name Dose Route Start Last Admin Trade Name Freq PRN Reason Stop Dose Admin Amlodipine Besylate 10 mg 04/01/24 13:10 04/03/24 09:37 Amlodipine Besylate 10 Mg Tablet PO 10 mg QAM JOSEMANUEL Administration Atorvastatin Calcium 40 mg 04/02/24 09:00 04/03/24 09:37 Atorvastatin 40 Mg Tablet PO 40 mg DAILY JOSEMANUEL Administration Enoxaparin Sodium 40 mg 04/04/24 09:00 Enoxaparin 40 Mg/0.4 Ml Syringe SUB-Q DAILY [facility] Fluticasone Propionate 2 puff 04/01/24 20:00 04/03/24 07:52 Fluticasone Prop 44 Mcg (*Sp) 10.6 Gm INHALATION 2 puff Q12HRT JOSEMANUEL Administration Fluticasone/Umeclidinium/Vilanterol 1 puff 04/01/24 15:50 Fluticasone/Umeclidin/Vilanter 100-62.5-25 Mcg Ellipta INHALATION DAILY [facility] Guaifenesin 1,200 mg 04/01/24 21:00 04/03/24 09:37 Guaifenesin 12 Hr 600 Mg Tabcr PO 1,200 mg Q12HR JOSEMANUEL Administration Ipratropium [place] 0.5 mg 04/01/24 02:00 04/03/24 13:53 Ipratropium Br 0.02% Inh Soln 0.5 Mg/2.5 Ml Vial INHALATION 0.5 mg Q6HRT JOSEMANUEL Administration Irbesartan 150 mg 04/04/24 09:00 Irbesartan 150 Mg Tablet PO DAILY JOSEMANUEL Levalbuterol HCl 1.25 mg 04/01/24 02:00 04/03/24 13:53 Levalbuterol Neb 1.25 Mg/3 Ml INHALATION 1.25 mg Q6HRT JOSEMANUEL Administration Levofloxacin 750 mg 04/03/24 20:00 Levofloxacin 750 Mg Tablet PO Q24H JOSEMANUEL Loratadine 10 mg 04/02/24 09:00 04/03/24 09:37 Loratadine 10 Mg Tablet PO 10 mg QAM JOSEMANUEL Administration Methylprednisolone Sodium Succinate 40 mg 04/01/24 14:00 04/03/24 15:22 Methylprednisolone Sod Succ 40 Mg Vial IV PUSH 40 mg Q8HR JOSEMANUEL Administration Metoprolol Tartrate 12.5 mg 04/03/24 21:00 Metoprolol Tartrate 12.5 Mg Tablet PO Q12HR [facility] Miscellaneous Information 1 each 04/02/24 00:01 04/02/24 20:04 Med Rec Order Clarification XX 05/02/24 00:00 Not Given CLARIFY [facility] Montelukast Sodium 10 mg 04/01/24 21:00 04/02/24 20:16 Montelukast Sodium 10 Mg Tablet PO 10 mg QHS JOSEMANUEL Administration Pantoprazole Sodium 40 mg 04/02/24 09:00 04/03/24 09:37 Pantoprazole 40 Mg Tablet PO 40 mg DAILY JOSEMANUEL Administration Radiology Results: ITS Impressions Chest X-Ray 04/01/24 16:18 IMPRESSION: Pulmonary opacities may represent senescent change, mild interstitial edema, or mild respiratory bronchiolitis depending on clinical context. Venous Doppler Study 04/01/24 19:20 IMPRESSION: Patent bilateral lower extremity veins. No evidence of deep venous thrombosis. Chest CTA 04/02/24 14:22 IMPRESSION: 1. No pulmonary embolus. Labs Labs: Laboratory Results - last 24 hr 04/03/24 04/03/24 04:38 08:27 WBC 16.7 H RBC 4.25 L Hgb 13.6 L Hct 40.9 L MCV 96.2 MCH 32.0 MCHC 33.3 RDW 12.9 Plt Count 266 MPV 9.1 Immature Gran % (Auto) 0.7 H Neut % (Auto) 89.9 H Lymph % (Auto) 6.1 L [place] % (Auto) 3.2 Eos % (Auto) 0.0 Baso % (Auto) 0.1 L Lymph # (Auto) 1.02 [place] # (Auto) 0.5 Eos # (Auto) 0.0 Baso # (Auto) 0.0 Abs Immat Gran (auto) 0.11 H Absolute Neuts (auto) 15.0 H Absolute Nucleated RBC 0.000 Nucleated RBC % 0.0 Sodium 139 Potassium 4.2 Chloride 108 H Carbon Dioxide 22 Anion Gap 9 BUN 22 H Creatinine 0.90 Estim Creat Clear Calc 73 Estimated GFR > 60 Glucose 170 H Lactic Acid 2.3 H 3.5 H Calcium 9.1 Magnesium 2.3 Total Bilirubin 0.6 AST 23 ALT 29 Alkaline Phosphatase 104 Total Protein 7.0 Albumin 4.2
[2024-04-03] MEDS: levoFLOXacin 750 MG TABLET PO (20:53)
[2024-04-03] MEDS: METOPROLOL TARTRATE 12.5 MG TABLET PO (20:54)
[2024-04-03] MEDS: MONTELUKAST SODIUM 10 MG TABLET PO (21:06)
[2024-04-03] MEDS: WATER FOR IRRIGATION, STERILE 1,000 ML BOTTLE 1000 ML (23:15)
[2024-04-04] VITALS (26 sets, daily range): BP systolic 152–170; BP diastolic 79–91; PULSE 90–110; RESP 18–24; TEMP 36.3–36.6; O2SAT 92–98
[2024-04-04] MEDS: LEVALBUTEROL NEB 1.25 MG/3 ML INHALATION ×4 (02:45→22:10)
[2024-04-04] MEDS: FLUTICASONE PROP 44 MCG (*SP) 10.6 GM 2 PUFF INHALATION ×2 (07:31→22:11)
[2024-04-04] MEDS: amLODIPine BESYLATE 10 MG TABLET PO (08:16)
[2024-04-04] MEDS: guaiFENesin 12 HR 600 MG TABCR 1200 MG PO ×2 (08:16→20:27)
[2024-04-04] MEDS: ATORVASTATIN 40 MG TABLET PO (08:16)
[2024-04-04] MEDS: IRBESARTAN 150 MG TABLET PO (08:16)
[2024-04-04] MEDS: LORATADINE 10 MG TABLET PO (08:16)
[2024-04-04] MEDS: METOPROLOL TARTRATE 12.5 MG TABLET PO ×2 (08:16→20:28)
[2024-04-04] MEDS: methylPREDNISolone SOD SUCC 40 MG VIAL IV PUSH ×2 (08:17→20:28)
[2024-04-04] MEDS: ENOXAPARIN 40 MG/0.4 ML SYRINGE SUB-Q (08:17)
[2024-04-04] MEDS: PANTOPRAZOLE 40 MG TABLET PO (08:17)
[2024-04-04] MEDS: hydroCHLOROthiazide 12.5 MG CAPSULE PO (08:17)
--- NOTE | 2024-04-04 11:59 | P.PNIM_ITS ---
Progress Note: A&P Assessment and Plan (1) Acute hypoxic respiratory failure: Code(s): J96.01 - Acute respiratory failure with hypoxia Status: Acute Assessment and Plan: * Pulmonology consulted and following * Chest CTA negative for PE * Doppler study negative for DVT * Chest x-ray showing opacities * Levaquin for possible community-acquired pneumonia * Continue Xopenex, Trelegy, and Atrovent * Continue Solu-Medrol * Continue Mucinex, singular, Claritin * Continue pep valve and incentive spirometry * PFT was normal * Eosinophils were elevated on admission * History of syncopal coughing and mucus plugging * OK to transfer out to med/surg on Tele * continue to wean O2 for sat greater than 90% per pulmonology recommendation (2) Gastro-esophageal reflux disease without esophagitis: Code(s): K21.9 - Gastro-esophageal reflux disease without esophagitis Status: Acute Assessment and Plan: * Continue Protonix (3) Obstructive sleep apnea: Code(s): G47.33 - Obstructive sleep apnea (adult) (pediatric) Status: Acute Assessment and Plan: * Continue CPAP at night (4) Chronic cough: Code(s): R05.3 - Chronic cough Status: Acute Assessment and Plan: * History of syncopal coughing * ENT consult placed for possible vocal cord dysfunction however we do not have ENT services, will need to address this on an outpatient basis (5) History of cannabis abuse: Code(s): F12.11 - Cannabis abuse, in remission Status: Acute Assessment and Plan: * Was a heavy marijuana smoker however patient states that he quit back in December during his hospitalization in [place] however he admits to using marijuana a few times since then. * urine drug screen this admission negative (6) Tachycardia: Code(s): R00.0 - Tachycardia, unspecified Status: Acute Assessment and Plan: * Likely due to Xopenex/albuterol/steroid use * Heart rate 100-103 * Continue cardiac monitoring * Will give low-dose metoprolol to help with heart rate to see if this improves * Already on Xopenex * metoprolol ordered (7) Mixed hyperlipidemia: Code(s): E78.2 - Mixed hyperlipidemia Status: Acute Assessment and Plan: * Continue Irbesartan and atorvastatin (8) Hypertension: Qualifiers: Hypertension type: primary hypertension Qualified Code(s): I10 - Essential (primary) hypertension Code(s): I10 - Essential (primary) hypertension Status: Acute Assessment and Plan: * Blood pressures ranging 132/69 to 158/96 * Continue amlodipine * No leg swelling noted Time Spent With Patient Time with patient: Greater than 35 minutes Subjective Date/time seen: 04/04/24 11:59 Interval history: Interval history: This is a 68-year-old male who presented to the hospital on 03/31/2024 with shortness of breath and hypoxia. Patient has been having shortness of breath since July of this past year. Workup in the hospital included a chest x-ray which showed pulmonary opacities may represent mild interstitial edema or mild respiratory bronchiolitis. Initial labs showed a white blood cell count of 14.1, eosinophils 12.6, bicarb 20, alkaline phosphate 142, troponin negative x2, proBNP 116. Respiratory panel was negative for influenza a and B, RSV, COVID. Blood cultures were obtained and are pending. Patient was put on Levaquin for possible community-acquired pneumonia, Xopenex breathing treatments, Atrovent and steroids while in the ED. On 04/01/2024 patient went into respiratory distress and had wheezing and hypoxia. He had a chest CTA which was negative for PE, bilateral Dopplers which was negative for DVT. Pulmonology was consulted. An echocardiogram was obtained which showed normal LV systolic function with an estimated EF of 65-70%, grade 1 diastolic dysfunction otherwise normal. He also had PFT as an outpatient which was normal. He does wear a CPAP at night for obstructive sleep apnea and currently has a pressure setting of 12 cm optimal pressure. He has had a chronic cough for the past 4 months and has had multiple rounds of antibiotics and steroids which seems to get the cough better for short time but did not get rid of it completely. He has done a lot of traveling in the past year and was traveling to [place] however whenever he got to [place] he had an exacerbation with coughing fits that caused him to be syncopal. He was taken to a hospital in [place] for further evaluation. He had a very extensive workup and was started on DuoNebs and Trelegy which improved his symptoms. Prior to this exacerbation patient was smoking marijuana heavily which could have contributed to his symptoms. Since that time back in December he had stop smoking marijuana however has not had much improvement with his symptoms since that time. He also is a former cigarette smoker however quit that 15 years ago. Patient was started on steroids, pep valve, DuoNebs, CPAP and IMU status for now. Pulmonary was consulted for further evaluation and for further care/follow-up on an outpatient basis. See pulmonary note for further details about previous workup. Subjective: Patient denies any new complaints today. He is currently on 2 L nasal cannula and feeling much better today. Labs and imaging reviewed. Review of Systems Review of Systems: 12 systems were reviewed with pertinent positives and negatives per HPI. Except as documented in the HPI, all other systems were reviewed and are negative. All systems reviewed & are unremarkable except as noted in HPI and below Constitutional: Constitutional: Reports as per HPI and Reports no additional constitutional complaints Eyes: Eyes: Reports as per HPI and Reports no additional eye complaints ENT: Reports system reviewed and no additional complaints, except as documented and Reports as per HPI Cardiovascular: Cardiovascular: Reports as per HPI and Reports no additional cardiovascular complaints Respiratory: Respiratory: Reports as per HPI and Reports no additional respiratory complaints Gastrointestinal: Gastrointestinal: Reports as per HPI and Reports no additional gastrointestinal complaints Genitourinary: Genitourinary: Reports no additional male genitourinary complaints and Reports as per HPI Musculoskeletal: Musculoskeletal: Reports no additional musculoskeletal c omplaints and Reports as per HPI Integumentary/Breasts: Skin/Breast: Reports system reviewed and no additional complaints, except as docu and Reports as per HPI Neurologic: Reports system reviewed and no additional complaints, except as documented and Reports as per HPI Psychiatric: Psychiatric: Reports no additional psychiatric complaints and Reports as per HPI Exam Narrative: General: In no acute distress, well nourished Head: atraumatic, no encephalopathy Eyes:PERRLA, sclera clear ENT: moist mucous membranes, nasal passages clear Neck: supple, no JVD, no adenopathy, trachea midline Cardiac: Normal S1 and S2. RRR, tachycardic, No murmur, gallops or friction rubs, peripheral pulses intact. Respiratory: Mild expiratory wheeze, no other adventitious lung sounds, cur rently on 2 L nasal cannula Gastrointestinal: soft, non-distended, non-tender, normoactive bowel sounds. : voiding without difficulty. Extremities: moves all extremities well, no edema, good ROM, strength 5/5 Skin: clean, dry, intact. No wounds or lesions. Neuro: Alert and oriented x4, cranial nerves intact, no neuro deficits. Psych: normal mood, normal affect, interactive Objective Data Vital Signs Vital Signs: Vital Signs - 24 hr 04/03/24 12:00 04/03/24 13:53 04/03/24 14:06 Temperature 97.5 F L Pulse Rate 108 H 106 H 107 H Respiratory Rate 28 H 24 H 24 H Blood Pressure 152/86 H Pulse Oximetry 92 Oxygen Delivery Oxygen Flow Rate Fraction of Inspired Oxygen 04/03/24 16:00 04/03/24 12:00 04/03/24 16:00 Temperature 97.6 F Pulse Rate 105 H Respiratory Rate 24 H Blood Pressure 154/89 H Pulse Oximetry 94 92 94 Oxygen Delivery Nasal Cannula Nasal Cannula Oxygen Flow Rate 4 4 Fraction of Inspired Oxygen 04/03/24 12:00 04/03/24 14:00 04/03/24 16:00 Temperature Pulse Rate 109 H 105 H 106 H Respiratory Rate Blood Pressure Pulse Oximetry Oxygen Delivery Oxygen Flow Rate Fraction of Inspired Oxygen 04/03/24 18:00 04/03/24 20:32 04/03/24 20:54 Temperature 97.6 F Pulse Rate 104 H 103 H 103 H Respiratory Rate 24 H Blood Pressure 172/87 H Pulse Oximetry 91 Oxygen Delivery Oxygen Flow Rate Fraction of Inspired Oxygen 04/03/24 21:00 04/03/24 21:04 04/03/24 21:14 Temperature Pulse Rate 105 H 113 H Respiratory Rate 21 H 21 H Blood Pressure Pulse Oximetry 96 Oxygen Delivery Nasal Cannula Oxygen Flow Rate 4 Fraction of Inspired Oxygen 04/03/24 22:00 04/03/24 20:00 04/03/24 20:00 Temperature Pulse Rate 97 101 H Respiratory Rate Blood Pressure Pulse Oximetry 95 95 Oxygen Delivery CPAP Nasal Cannula Oxygen Flow Rate 4 Fraction of Inspired Oxygen 04/04/24 00:49 04/03/24 22:00 04/04/24 00:00 Temperature 97.7 F Pulse Rate 95 102 H 95 Respiratory Rate 24 H Blood Pressure 170/83 H Pulse Oximetry 96 Oxygen Delivery Oxygen Flow Rate Fraction of Inspired Oxygen 04/04/24 00:00 04/04/24 02:45 04/04/24 02:48 Temperature Pulse Rate 93 97 Respiratory Rate 20 Blood Pressure Pulse Oximetry 94 Oxygen Delivery CPAP CPAP Oxygen Flow Rate Fraction of Inspired Oxygen 04/04/24 02:58 04/04/24 02:00 04/04/24 04:00 Temperature Pulse Rate 107 H 107 H Respiratory Rate 20 Blood Pressure Pulse Oximetry 94 Oxygen Delivery CPAP Oxygen Flow Rate 4 Fraction of Inspired Oxygen 04/04/24 04:00 04/04/24 05:50 04/04/24 06:00 Temperature 97.8 F Pulse Rate 101 H 93 93 Respiratory Rate 24 H Blood Pressure 152/81 H Pulse Oximetry 96 Oxygen Delivery Oxygen Flow Rate Fraction of Inspired Oxygen 04/04/24 08:00 04/04/24 08:16 04/04/24 07:29 Temperature 97.3 F L Pulse Rate 90 110 H 91 Respiratory Rate 20 20 Blood Pressure 165/91 H Pulse Oximetry 98 Oxygen Delivery Oxygen Flow Rate Fraction of Inspired Oxygen 04/04/24 07:29 04/04/24 07:43 04/04/24 08:00 Temperature Pulse Rate 95 106 H Respiratory Rate 20 Blood Pressure Pulse Oximetry 94 Oxygen Delivery Nasal Cannula Oxygen Flow Rate 2 Fraction of Inspired Oxygen 28 04/04/24 10:00 04/04/24 11:53 Temperature 97.3 F L Pulse Rate 93 95 Respiratory Rate 18 Blood Pressure 160/83 H Pulse Oximetry 95 Oxygen Delivery Oxygen Flow Rate Fraction of Inspired Oxygen Intake/Output Intake/Output: Intake & Output 04/01/24 04/02/24 04/03/24 04/04/24 23:59 23:59 23:59 23:59 Intake Total 1320 1638.3 2360 1120 Output Total 400 1203 Balance 1320 1238.3 1157 1120 Meds/Results Medications: Active Medications Generic Name Dose Route Start Last Admin Trade Name Freq PRN Reason Stop Dose Admin Amlodipine Besylate 10 mg 04/01/24 13:10 04/04/24 08:16 Amlodipine Besylate 10 Mg Tablet PO 10 mg QAM JOSEMANUEL Administration Atorvastatin Calcium 40 mg 04/02/24 09:00 04/04/24 08:16 Atorvastatin 40 Mg Tablet PO 40 mg DAILY JOSEMANUEL Administration Enoxaparin Sodium 40 mg 04/04/24 09:00 04/04/24 08:17 Enoxaparin 40 Mg/0.4 Ml Syringe SUB-Q 40 mg DAILY JOSEMANUEL Administration Fluticasone Propionate 2 puff 04/01/24 20:00 04/04/24 07:31 Fluticasone Prop 44 Mcg (*Sp) 10.6 Gm INHALATION 2 puff Q12HRT JOSEMANUEL Administration Fluticasone/Umeclidinium/Vilanterol 1 puff 04/01/24 15:50 Fluticasone/Umeclidin/Vilanter 100-62.5-25 Mcg Ellipta INHALATION DAILY JOSEMANUEL Guaifenesin 1,200 mg 04/01/24 21:00 04/04/24 08:16 Guaifenesin 12 Hr 600 Mg Tabcr PO 1,200 mg Q12HR JOSEMANUEL Administration Hydrochlorothiazide 12.5 mg 04/04/24 09:00 04/04/24 08:17 Hydrochlorothiazide 12.5 Mg Capsule PO 12.5 mg QAM JOSEMANUEL Administration Irbesartan 150 mg 04/04/24 09:00 04/04/24 08:16 Irbesartan 150 Mg Tablet PO 150 mg DAILY JOSEMANUEL Administration Levalbuterol HCl 1.25 mg 04/01/24 02:00 04/04/24 07:29 Levalbuterol Neb 1.25 Mg/3 Ml INHALATION 1.25 mg Q6HRT JOSEMANUEL Administration Levofloxacin 750 mg 04/03/24 20:00 04/03/24 20:53 Levofloxacin 750 Mg Tablet PO 750 mg Q24H JOSEMANUEL Administration Loratadine 10 mg 04/02/24 09:00 04/04/24 08:16 Loratadine 10 Mg Tablet PO 10 mg QAM JOSEMANUEL Administration Methylprednisolone Sodium Succinate 40 mg 04/03/24 20:00 04/04/24 08:17 Methylprednisolone Sod Succ 40 Mg Vial IV PUSH 40 mg Q12H JOSEMANUEL Administration Metoprolol Tartrate 12.5 mg 04/03/24 21:00 04/04/24 08:16 Metoprolol Tartrate 12.5 Mg Tablet PO 12.5 mg Q12HR JOSEMANUEL Administration Miscellaneous Information 1 each 04/02/24 00:01 04/02/24 20:04 Med Rec Order Clarification XX 05/02/24 00:00 Not Given CLARIFY JOSEMANUEL Montelukast Sodium 10 mg 04/01/24 21:00 04/03/24 21:06 Montelukast Sodium 10 Mg Tablet PO 10 mg QHS JOSEMANUEL Administration Pantoprazole Sodium 40 mg 04/02/24 09:00 04/04/24 08:17 Pantoprazole 40 Mg Tablet PO 40 mg DAILY JOSEMANUEL Administration Sodium Chloride 1 spray 04/03/24 20:26 Saline 0.65% Brenden Soln 44 Ml Btl NASAL Q6HR PRN Congestion Radiology Results: ITS Impressions Chest X-Ray 04/01/24 16:18 IMPRESSION: Pulmonary opacities may represent senescent change, mild interstitial edema, or mild respiratory bronchiolitis depending on clinical context. Venous Doppler Study 04/01/24 19:20 IMPRESSION: Patent bilateral lower extremity veins. No evidence of deep venous thrombosis. Chest CTA 04/02/24 14:22 IMPRESSION: 1. No pulmonary embolus. Quality VTE Prophylaxis VTE prophylaxis: pharmacologic ordered (Lovenox 40 mg subQ daily)
--- NOTE | 2024-04-04 13:34 | PC.NURSE ---
to [facility] dept for VQ scan
[2024-04-04 16:06] LABS: Amphetamine Screen Urine Negative (Negative); Barbiturate Screen Urine Negative (Negative); Benzodiazepines Screen Urine Negative (Negative); Cannabinoid Screen Urine Negative (Negative); Cocaine Screen Urine Negative (Negative); Methadone Screen Urine Negative (Negative); Opiate Screen Urine Negative (Negative); Phencyclidine Screen Urine Negative (Negative)
[2024-04-04 17:09] LABS: ANA Cascade Screen NEGATIVE (NEGATIVE)
[2024-04-04] MEDS: levoFLOXacin 750 MG TABLET PO (20:28)
[2024-04-04] MEDS: MONTELUKAST SODIUM 10 MG TABLET PO (20:28)
--- NOTE | 2024-04-04 23:25 | PC.NURSE ---
RECEIVED PT FROM IMU PER W/C. VOICES NO C/O.
[2024-04-05] VITALS (17 sets, daily range): BP systolic 142–159; BP diastolic 71–87; PULSE 59–104; RESP 16–20; TEMP 36.3–36.8; O2SAT 91–97
[2024-04-05 05:57] LABS: Basophils Percent Auto 0.3 % (0.2-1.2); Hematocrit 43.4 % (42.0-52.0); Hemoglobin 14.9 g/dL (14.0-18.0); Immature Granulocyte Absolute 0.24 K/mm3 (0.00-0.031); Immature Granulocyte Percent A 1.8 % (0-0.5); Lymphocytes Absolute Auto 1.56 K/mm3 (0.9-3.2); Lymphocytes Percent Auto 11.4 % (18.3-44.2); Mean Corpuscular HGB Conc 34.3 g/dl (32-36); Mean Corpuscular Volume 93.1 fl (80-100); Mean Platelet Volume 9.1 fl (7.4-10.4); Monocytes Absolute Auto 1.1 K/mm3 (0.1-0.6); Monocytes Percent Auto 8.3 % (2.6-8.5); Neutrophils Absolute Auto 10.7 K/mm3 (1.3-6.7); Neutrophils Percent Auto 78.2 % (45.5-73.1); Platelet Count Result 291 k/mm3 (150-375); Red Blood Count 4.66 M/mm3 (4.6-6.20); Red Cell Distribution Width 12.2 % (11.5-14.5); White Blood Count 13.6 K/mm3 (4.5-10.0)
[2024-04-05 06:12] LABS: Alanine Aminotransferase 91 U/L (6-50); Albumin Level 4.1 g/dL (3.5-5.1); Alkaline Phosphatase 101 U/L (38-126); Anion Gap 5 mmol/L (4-12); Aspartate Amino Transferase 57 U/L (17-59); Bilirubin,Total 0.7 mg/dL (0.2-1.3); Blood Urea Nitrogen 27 mg/dL (9-20); Calcium 9.3 mg/dL (8.4-10.2); Carbon Dioxide 29 mmol/L (22-30); Chloride 101 mmol/L (98-107); Estimated CRCL calculation 67 ml/min; Estimated Glomerular Filt Rate > 60; Glucose 150 mg/dL (65-110); Potassium 4.6 mmol/L (3.4-5.0); Sodium 135 mmol/L (137-145)
[2024-04-05] MEDS: LEVALBUTEROL NEB 1.25 MG/3 ML INHALATION ×3 (07:47→20:10)
[2024-04-05] MEDS: FLUTICASONE PROP 44 MCG (*SP) 10.6 GM 2 PUFF INHALATION ×2 (07:56→20:10)
[2024-04-05] MEDS: PANTOPRAZOLE 40 MG TABLET PO (08:10)
[2024-04-05] MEDS: hydroCHLOROthiazide 12.5 MG CAPSULE PO (08:10)
[2024-04-05] MEDS: guaiFENesin 12 HR 600 MG TABCR 1200 MG PO ×2 (08:10→20:24)
[2024-04-05] MEDS: ATORVASTATIN 40 MG TABLET PO (08:10)
[2024-04-05] MEDS: METOPROLOL TARTRATE 12.5 MG TABLET PO ×2 (08:10→20:25)
[2024-04-05] MEDS: IRBESARTAN 150 MG TABLET PO (08:10)
[2024-04-05] MEDS: amLODIPine BESYLATE 10 MG TABLET PO (08:10)
[2024-04-05] MEDS: LORATADINE 10 MG TABLET PO (08:10)
[2024-04-05] MEDS: methylPREDNISolone SOD SUCC 40 MG VIAL IV PUSH ×2 (08:21→20:27)
[2024-04-05] MEDS: ENOXAPARIN 40 MG/0.4 ML SYRINGE SUB-Q (08:21)
--- NOTE | 2024-04-05 14:07 | P.PNIM_ITS ---
Progress Note: A&P Assessment and Plan (1) History of cannabis abuse: Code(s): F12.11 - Cannabis abuse, in remission Status: Acute (2) Mucus plugging of bronchi: Code(s): T17.500A - Unspecified foreign body in bronchus causing asphyxiation, initial encounter Status: Acute (3) Tachycardia: Code(s): R00.0 - Tachycardia, unspecified Status: Acute (4) Acute bronchospasm: Code(s): J98.01 - Acute bronchospasm Status: Acute (5) Acute hypoxic respiratory failure: Code(s): J96.01 - Acute respiratory failure with hypoxia Status: Acute (6) Dyspnea on exertion: Code(s): R06.09 - Other forms of dyspnea Status: Acute (7) SOB (shortness of breath): Code(s): R06.02 - Shortness of breath Status: Acute (8) Chronic cough: Code(s): R05.3 - Chronic cough Status: Acute Plan 68-year-old male with past medical history of essential hypertension, GERD, and obstructive sleep apnea compliant with CPAP who presented to the ER with shortness breath and hypoxia. 1. Acute hypoxic respiratory failure: Hypoxia has resolved, currently on room air History of smoking History of [place] use History of obstructive sleep apnea Continue with bronchodilator dilators Continue with levofloxacin Continue with IV Solu-Medrol Will need a 6 minute walk prior to discharge Continue with home unit CPAP at night 2. Hypertension: Continue with irbesartan, Norvasc, hydrochlorothiazide, metoprolol 3. DVT prophylaxis: Lovenox 4. Code status: Full 5. Disposition: Anticipate discharge within next 24 hours Time Spent With Patient Time with patient: 25 - 35 minutes Subjective Date/time seen: 04/05/24 14:07 Interval history: Feeding much better, currently on room air Review of Systems Review of Systems: 12 systems were reviewed with pertinent positives and negatives per HPI. Exam Narrative: General: In no acute distress, well nourished Head: atraumatic, no encephalopathy Eyes:PERRLA, sclera clear ENT: moist mucous membranes, nasal passages clear Neck: supple, no JVD, no adenopathy, trachea midline Cardiac: Normal S1 and S2. RRR, , No murmur, gallops or friction rubs, peripheral pulses intact. Respiratory: Decreased breath sounds bilaterally, no wheezing heard today, currently on room air Gastrointestinal: soft, non-distended, non-tender, normoactive bowel sounds. : voiding without difficulty. Extremities: moves all extremities well, no edema, good ROM, strength 5/5 Skin: clean, dry, intact. No wounds or lesions. Neuro: Alert and oriented x4, cranial nerves intact, no neuro deficits. Psych: normal mood, normal affect, interactive Objective Data Vital Signs Vital Signs: Vital Signs - 24 hr 04/04/24 16:00 04/04/24 16:44 04/04/24 20:28 Temperature 97.4 F L Pulse Rate 100 102 H 101 H Respiratory Rate 24 H Blood Pressure 152/79 H Pulse Oximetry 95 Oxygen Delivery Oxygen Flow Rate Fraction of Inspired Oxygen 04/04/24 20:00 04/04/24 20:00 04/04/24 20:00 Temperature 98 F Pulse Rate 97 96 Respiratory Rate 18 Blood Pressure 163/87 H Pulse Oximetry 92 92 Oxygen Delivery Nasal Cannula Oxygen Flow Rate 1 Fraction of Inspired Oxygen 04/04/24 22:11 04/04/24 22:37 04/04/24 23:24 Temperature Pulse Rate 95 106 H 97 Respiratory Rate 20 20 Blood Pressure Pulse Oximetry Oxygen Delivery Oxygen Flow Rate Fraction of Inspired Oxygen 04/05/24 00:00 04/05/24 00:00 04/05/24 04:00 Temperature 98.2 F Pulse Rate 92 91 88 Respiratory Rate 18 Blood Pressure 151/87 H Pulse Oximetry 97 Oxygen Delivery Oxygen Flow Rate Fraction of Inspired Oxygen 04/04/24 22:10 04/05/24 03:05 04/05/24 08:10 Temperature Pulse Rate 95 80 Respiratory Rate Blood Pressure Pulse Oximetry 94 Oxygen Delivery CPAP CPAP Oxygen Flow Rate Fraction of Inspired Oxygen 04/05/24 07:47 04/05/24 07:47 04/05/24 08:01 Temperature Pulse Rate 91 93 Respiratory Rate 18 18 Blood Pressure Pulse Oximetry 94 Oxygen Delivery Room Air Oxygen Flow Rate Fraction of Inspired Oxygen 21 04/05/24 08:00 04/05/24 08:00 04/05/24 12:00 Temperature 98.1 F Pulse Rate 95 59 L 90 Respiratory Rate 18 Blood Pressure 142/71 H Pulse Oximetry 97 Oxygen Delivery Oxygen Flow Rate Fraction of Inspired Oxygen Intake/Output Intake/Output: Intake & Output 04/02/24 04/03/24 04/04/2405/24 23:59 23:59 23:59 23:59 Intake Total 1638.3 2360 2200 980 Output Total 400 1203 450 Balance 1238.3 1157 1750 980 Meds/Results Medications: Active Medications Generic Name Dose Route Start Last Admin Trade Name Freq PRN Reason Stop Dose Admin Amlodipine Besylate 10 mg 04/01/24 13:10 04/05/24 08:10 Amlodipine Besylate 10 Mg Tablet PO 10 mg QAM JOSEMANUEL Administration Atorvastatin Calcium 40 mg 04/02/24 09:00 04/05/24 08:10 Atorvastatin 40 Mg Tablet PO 40 mg DAILY JOSEMANUEL Administration Enoxaparin Sodium 40 mg 04/04/24 09:00 04/05/24 08:21 Enoxaparin 40 Mg/0.4 Ml Syringe SUB-Q 40 mg DAILY JOSEMANUEL Administration Fluticasone Propionate 2 puff 04/01/24 20:00 04/05/24 07:56 Fluticasone Prop 44 Mcg (*Sp) 10.6 Gm INHALATION 2 puff Q12HRT JOSEMANUEL Administration Guaifenesin 1,200 mg 04/01/24 21:00 04/05/24 08:10 Guaifenesin 12 Hr 600 Mg Tabcr PO 1,200 mg Q12HR JOSEMANUEL Administration Hydrochlorothiazide 12.5 mg 04/04/24 09:00 04/05/24 08:10 Hydrochlorothiazide 12.5 Mg Capsule PO 12.5 mg QAM JOSEMANUEL Administration Irbesartan 150 mg 04/04/24 09:00 04/05/24 08:10 Irbesartan 150 Mg Tablet PO 150 mg DAILY JOSEMANUEL Administration Levalbuterol HCl 1.25 mg 04/01/24 02:00 04/05/24 07:47 Levalbuterol Neb 1.25 Mg/3 Ml INHALATION 1.25 mg Q6HRT JOSEMANUEL Administration Levofloxacin 750 mg 04/03/24 20:00 04/04/24 20:28 Levofloxacin 750 Mg Tablet PO 750 mg Q24H JOSEMANUEL Administration Loratadine 10 mg 04/02/24 09:00 04/05/24 08:10 Loratadine 10 Mg Tablet PO 10 mg QAM JOSEMANUEL Administration Methylprednisolone Sodium Succinate 40 mg 04/03/24 20:00 04/05/24 08:21 Methylprednisolone Sod Succ 40 Mg Vial IV PUSH 40 mg Q12H JOSEMANUEL Administration Metoprolol Tartrate 12.5 mg 04/03/24 21:00 04/05/24 08:10 Metoprolol Tartrate 12.5 Mg Tablet PO 12.5 mg Q12HR JOSEMANUEL Administration Montelukast Sodium 10 mg 04/01/24 21:00 04/04/24 20:28 Montelukast Sodium 10 Mg Tablet PO 10 mg QHS JOSEMANUEL Administration Pantoprazole Sodium 40 mg 04/02/24 09:00 04/05/24 08:10 Pantoprazole 40 Mg Tablet PO 40 mg DAILY JOSEMANUEL Administration Sodium Chloride 1 spray 04/03/24 20:26 Saline 0.65% Brenden Soln 44 Ml Btl NASAL Q6HR PRN Congestion Radiology Results: ITS Impressions Venous Doppler Study 04/01/24 19:20 IMPRESSION: Patent bilateral lower extremity veins. No evidence of deep venous thrombosis. Chest CTA 04/02/24 14:22 IMPRESSION: 1. No pulmonary embolus. Pulmonary Perfusion Imaging 04/04/24 13:59 IMPRESSION: 1. Low probability for pulmonary embolism. Chest X-Ray 04/04/24 14:01 IMPRESSION: 1. Mild atelectasis at the lung bases. Labs Labs: Laboratory Results - last 24 hr 04/03/24 04/04/24 04/05/24 04:38 15:26 05:24 WBC RBC Hgb Hct MCV MCH MCHC RDW Plt Count MPV Immature Gran % (Auto) Neut % (Auto) Lymph % (Auto) Carver % (Auto) Eos % (Auto) Baso % (Auto) Lymph # (Auto) Carver # (Auto) Eos # (Auto) Baso # (Auto) Abs Immat Gran (auto) Absolute Neuts (auto) Absolute Nucleated RBC Nucleated RBC % Sodium 135 L Potassium 4.6 Chloride 101 Carbon Dioxide 29 Anion Gap 5 BUN 27 H Creatinine 1.00 Estim Creat Clear Calc 67 Estimated GFR > 60 Glucose 150 H Calcium 9.3 Total Bilirubin 0.7 AST 57 ALT 91 H Alkaline Phosphatase 101 Total Protein 7.0 Albumin 4.1 Urine Opiates Screen Negative Urine Methadone Screen Negative Ur Barbiturates Screen Negative Ur Phencyclidine Scrn Negative Ur Amphetamine Screen Negative U Benzodiazepines Scrn Negative Urine Cocaine Screen Negative U Cannabinoids Screen Negative ELADIO Scrn Qualitative Negative ELADIO Ramseur Interp Not Reportable 04/05/24 05:25 WBC 13.6 H RBC 4.66 Hgb 14.9 Hct 43.4 MCV 93.1 MCH 32.0 MCHC 34.3 RDW 12.2 Plt Count 291 MPV 9.1 Immature Gran % (Auto) 1.8 H Neut % (Auto) 78.2 H Lymph % (Auto) 11.4 L Carver % (Auto) 8.3 Eos % (Auto) 0.0 Baso % (Auto) 0.3 Lymph # (Auto) 1.56 Carver # (Auto) 1.1 H Eos # (Auto) 0.0 Baso # (Auto) 0.0 Abs Immat Gran (auto) 0.24 H Absolute Neuts (auto) 10.7 H Absolute Nucleated RBC 0.000 Nucleated RBC % 0.0 Sodium Potassium Chloride Carbon Dioxide Anion Gap BUN Creatinine Estim Creat Clear Calc Estimated GFR Glucose Calcium Total Bilirubin AST ALT Alkaline Phosphatase Total Protein Albumin Urine Opiates Screen Urine Methadone Screen Ur Barbiturates Screen Ur Phencyclidine Scrn Ur Amphetamine Screen U Benzodiazepines Scrn Urine Cocaine Screen U Cannabinoids Screen ELADIO Scrn Qualitative ELADIO Ramseur Interp Quality VTE Prophylaxis VTE prophylaxis: pharmacologic ordered
[2024-04-05] MEDS: levoFLOXacin 750 MG TABLET PO (20:24)
[2024-04-05] MEDS: MONTELUKAST SODIUM 10 MG TABLET PO (20:25)
[2024-04-06] VITALS (14 sets, daily range): BP systolic 141–158; BP diastolic 55–93; PULSE 70–107; RESP 18–20; TEMP 36.4–36.8; O2SAT 95–99
[2024-04-06 05:13] LABS: Basophils Absolute Auto 0.1 K/mm3 (0.0-0.1); Basophils Percent Auto 0.4 % (0.2-1.2); Eosinophils Percent Auto 0.1 % (0-4.4); Hemoglobin 15.6 g/dL (14.0-18.0); Immature Granulocyte Absolute 0.51 K/mm3 (0.00-0.031); Immature Granulocyte Percent A 3.1 % (0-0.5); Lymphocytes Absolute Auto 1.71 K/mm3 (0.9-3.2); Lymphocytes Percent Auto 10.5 % (18.3-44.2); Mean Corpuscular HGB Conc 35.5 g/dl (32-36); Mean Corpuscular Hemoglobin 32.3 pg (26-34); Mean Corpuscular Volume 91.1 fl (80-100); Mean Platelet Volume 8.9 fl (7.4-10.4); Monocytes Absolute Auto 1.3 K/mm3 (0.1-0.6); Monocytes Percent Auto 7.9 % (2.6-8.5); Neutrophils Absolute Auto 12.7 K/mm3 (1.3-6.7); Platelet Count Result 277 k/mm3 (150-375); Red Blood Count 4.83 M/mm3 (4.6-6.20); White Blood Count 16.3 K/mm3 (4.5-10.0)
[2024-04-06 05:26] LABS: Alanine Aminotransferase 110 U/L (6-50); Albumin Level 4.1 g/dL (3.5-5.1); Alkaline Phosphatase 94 U/L (38-126); Anion Gap 7 mmol/L (4-12); Aspartate Amino Transferase 53 U/L (17-59); Bilirubin,Total 0.7 mg/dL (0.2-1.3); Blood Urea Nitrogen 32 mg/dL (9-20); Calcium 9.1 mg/dL (8.4-10.2); Carbon Dioxide 24 mmol/L (22-30); Chloride 103 mmol/L (98-107); Estimated CRCL calculation 73 ml/min; Estimated Glomerular Filt Rate > 60; Glucose 175 mg/dL (65-110); Potassium 4.4 mmol/L (3.4-5.0); Sodium 134 mmol/L (137-145)
[2024-04-06] MEDS: FLUTICASONE PROP 44 MCG (*SP) 10.6 GM 2 PUFF INHALATION (07:20)
[2024-04-06] MEDS: LEVALBUTEROL NEB 1.25 MG/3 ML INHALATION ×2 (07:20→13:25)
[2024-04-06 07:27] LABS: Reference Lab Test Name Resp Vir Pan PCR
[2024-04-06] MEDS: hydroCHLOROthiazide 12.5 MG CAPSULE PO (08:22)
[2024-04-06] MEDS: METOPROLOL TARTRATE 12.5 MG TABLET PO (08:22)
[2024-04-06] MEDS: PANTOPRAZOLE 40 MG TABLET PO (08:22)
[2024-04-06] MEDS: ATORVASTATIN 40 MG TABLET PO (08:22)
[2024-04-06] MEDS: guaiFENesin 12 HR 600 MG TABCR 1200 MG PO (08:22)
[2024-04-06] MEDS: IRBESARTAN 150 MG TABLET PO (08:23)
[2024-04-06] MEDS: LORATADINE 10 MG TABLET PO (08:23)
[2024-04-06] MEDS: amLODIPine BESYLATE 10 MG TABLET PO (08:23)
[2024-04-06] MEDS: ENOXAPARIN 40 MG/0.4 ML SYRINGE SUB-Q (08:23)
[2024-04-06] MEDS: methylPREDNISolone SOD SUCC 40 MG VIAL IV PUSH (08:23)
--- NOTE | 2024-04-06 12:24 | P.PNIM_ITS ---
Subjective Date/time seen: 04/06/24 12:24 Objective Data Vital Signs Vital Signs: Vital Signs - 24 hr 04/05/24 14:25 04/05/24 14:32 04/05/24 15:55 Temperature 36.3 C L Pulse Rate 104 H 98 98 Respiratory Rate 18 18 16 Blood Pressure 154/78 H Pulse Oximetry 94 Oxygen Delivery 04/05/24 16:00 04/05/24 20:12 04/05/24 20:12 Temperature Pulse Rate 100 96 Respiratory Rate 18 Blood Pressure Pulse Oximetry 95 Oxygen Delivery Room Air 04/05/24 20:25 04/05/24 21:00 04/05/24 20:00 Temperature 36.4 C L Pulse Rate 72 104 H Respiratory Rate 20 Blood Pressure 159/85 H Pulse Oximetry 94 Oxygen Delivery Room Air 04/05/24 20:00 04/06/24 00:00 04/05/24 20:23 Temperature Pulse Rate 101 H 83 95 Respiratory Rate 18 Blood Pressure Pulse Oximetry Oxygen Delivery 04/06/24 04:00 04/05/24 23:30 04/06/24 06:05 Temperature 36.4 C L Pulse Rate 70 82 100 Respiratory Rate 20 Blood Pressure 141/55 H Pulse Oximetry 91 95 Oxygen Delivery CPAP 04/06/24 07:58 04/06/24 07:20 04/06/24 07:20 Temperature 36.8 C Pulse Rate 90 85 85 Respiratory Rate 20 18 18 Blood Pressure 158/93 H Pulse Oximetry 99 95 Oxygen Delivery Room Air 04/06/24 07:30 04/06/24 08:22 04/06/24 08:00 Temperature Pulse Rate 88 90 90 Respiratory Rate 18 Blood Pressure Pulse Oximetry Oxygen Delivery Intake/Output Intake/Output: Intake & Output 04/03/24 04/04/24 04/05/24 04/06/24 23:59 23:59 23:59 23:59 Intake Total 2360 2200 1220 880 Output Total 1203 450 800 Balance 1157 1750 1220 80 Meds/Results Medications: Active Medications Generic Name Dose Route Start Last Admin Trade Name Freq PRN Reason Stop Dose Admin Amlodipine Besylate 10 mg 04/01/24 13:10 04/06/24 08:23 Amlodipine Besylate 10 Mg Tablet PO 10 mg QAM JOSEMANUEL Administration Atorvastatin Calcium 40 mg 04/02/24 09:00 04/06/24 08:22 Atorvastatin 40 Mg Tablet PO 40 mg DAILY JOSEMANUEL Administration Enoxaparin Sodium 40 mg 04/04/24 09:00 04/06/24 08:23 Enoxaparin 40 Mg/0.4 Ml Syringe SUB-Q 40 mg DAILY JOSEMANUEL Administration Fluticasone Propionate 2 puff 04/01/24 20:00 04/06/24 07:20 Fluticasone Prop 44 Mcg (*Sp) 10.6 Gm INHALATION 2 puff Q12HRT JOSEMANUEL Administration Guaifenesin 1,200 mg 04/01/24 21:00 04/06/24 08:22 Guaifenesin 12 Hr 600 Mg Tabcr PO 1,200 mg Q12HR JOSEMANUEL Administration Hydrochlorothiazide 12.5 mg 04/04/24 09:00 04/06/24 08:22 Hydrochlorothiazide 12.5 Mg Capsule PO 12.5 mg QAM JOSEMANUEL Administration Irbesartan 150 mg 04/04/24 09:00 04/06/24 08:23 Irbesartan 150 Mg Tablet PO 150 mg DAILY JOSEMANUEL Administration Levalbuterol HCl 1.25 mg 04/01/24 02:00 04/06/24 07:20 Levalbuterol Neb 1.25 Mg/3 Ml INHALATION 1.25 mg Q6HRT JOSEMANUEL Administration Levofloxacin 750 mg 04/03/24 20:00 04/05/24 20:24 Levofloxacin 750 Mg Tablet PO 750 mg Q24H JOSEMANUEL Administration Loratadine 10 mg 04/02/24 09:00 04/06/24 08:23 Loratadine 10 Mg Tablet PO 10 mg QAM JOSEMANUEL Administration Metoprolol Tartrate 12.5 mg 04/03/24 21:00 04/06/24 08:22 Metoprolol Tartrate 12.5 Mg Tablet PO 12.5 mg Q12HR JOSEMANUEL Administration Montelukast Sodium 10 mg 04/01/24 21:00 04/05/24 20:25 Montelukast Sodium 10 Mg Tablet PO 10 mg QHS JOSEMANUEL Administration Pantoprazole Sodium 40 mg 04/02/24 09:00 04/06/24 08:22 Pantoprazole 40 Mg Tablet PO 40 mg DAILY JOSEMANUEL Administration Prednisone 40 mg 04/07/24 08:00 Prednisone 20 Mg Tablet PO DAILY@0800 JOSEMANUEL Sodium Chloride 1 spray 04/03/24 20:26 Saline 0.65% Brenden Soln 44 Ml Btl NASAL Q6HR PRN Congestion Radiology Results: ITS Impressions Venous Doppler Study 04/01/24 19:20 IMPRESSION: Patent bilateral lower extremity veins. No evidence of deep venous thrombosis. Chest CTA 04/02/24 14:22 IMPRESSION: 1. No pulmonary embolus. Pulmonary Perfusion Imaging 04/04/24 13:59 IMPRESSION: 1. Low probability for pulmonary embolism. Chest X-Ray 04/04/24 14:01 IMPRESSION: 1. Mild atelectasis at the lung bases. Labs Labs: Laboratory Results - last 24 hr 04/02/24 04/06/24 00:02 04:57 WBC 16.3 H RBC 4.83 Hgb 15.6 Hct 44.0 MCV 91.1 MCH 32.3 MCHC 35.5 RDW 12.0 Plt Count 277 MPV 8.9 Immature Gran % (Auto) 3.1 H Neut % (Auto) 78.0 H Lymph % (Auto) 10.5 L [place] % (Auto) 7.9 Eos % (Auto) 0.1 Baso % (Auto) 0.4 Lymph # (Auto) 1.71 [place] # (Auto) 1.3 H Eos # (Auto) 0.0 Baso # (Auto) 0.1 Abs Immat Gran (auto) 0.51 H Absolute Neuts (auto) 12.7 H Absolute Nucleated RBC 0.000 Nucleated RBC % 0.0 Sodium 134 L Potassium 4.4 Chloride 103 Carbon Dioxide 24 Anion Gap 7 BUN 32 H Creatinine 0.90 Estim Creat Clear Calc 73 Estimated GFR > 60 Glucose 175 H Calcium 9.1 Total Bilirubin 0.7 AST 53 ALT 110 H Alkaline Phosphatase 94 Total Protein 7.0 Albumin 4.1 Ref Lab Test Name Resp vir alcantar pcr Ref Lab Test Result See comment
--- NOTE | 2024-04-06 13:22 | P.PNPL_ITS ---
Progress Note: A&P Assessment and Plan (1) Acute hypoxic respiratory failure: Code(s): J96.01 - Acute respiratory failure with hypoxia Status: Acute Assessment and Plan: Resolved. He is on room air. He has a long smoking history, recent PFTs were normal, these are just part of the diagnosis. Home O2 evaluation now, before discharge. (2) SOB (shortness of breath): Code(s): R06.02 - Shortness of breath Status: Acute Assessment and Plan: Improved, not perfect, better. (3) Chronic cough: Code(s): R05.3 - Chronic cough Status: Acute Assessment and Plan: Persistent coughing for 4 and 1/2 months, better with each round of antibiotics +/- steroids. He had increased eosinophils with a total eosinophil count of 1020 Jan 14, 2024 on arrival at [facility], and the eosinophils normalized with steroids starting. This is expected. Eos have been normal this admission. (4) Personal history of tobacco use: Code(s): Z87.891 - Personal history of nicotine dependence Status: Acute Assessment and Plan: Tobacco cigarette smoking 15 years, up to 2 ppd, 30 pack year history, quit x 1988, however he does smoked marijuana heavily every day until Dec admission in [place], only smoked 5-6 times since then. he feels better after starting nebulized albuterol-ipratropium and Trelegy at [place] ER visit Jan 14, 2024 I stopped ipratropium as he is on Trelegy, already has a LAMA (5) Obstructive sleep apnea: Code(s): G47.33 - Obstructive sleep apnea (adult) (pediatric) Status: Acute Assessment and Plan: He was re-tested a year ago, CPAP 12 cm optimal pressure; he has his own CPAP machine here, 11 cm, using nightly. (6) Mucus plugging of bronchi: Code(s): T17.500A - Unspecified foreign body in bronchus causing asphyxiation, initial encounter Status: Acute Assessment and Plan: Seen on chest CT again 04/02/24. Mucolytics, hydration, PEP valve, pulmonary hygiene, bronchodilators. (7) History of cannabis abuse: Code(s): F12.11 - Cannabis abuse, in remission Status: Acute Assessment and Plan: He was using daily for years until mid December, stopped when he was admitted in [place]. Since then, has used maybe half a dozen times total. Regular smoking of marijuana can involve upper and lower airways, and skin can be involved. Symptoms can include rhinoconjunctivitis, asthma, and rashes with itching and urticaria. Urine drug screen this admission is negative, indicating that he has not smoked marijuana for at least 10 -30 days. His condition is not due hypersensitivity to marijuana. Plan plan: 1) He is stable for discharge today, after home O2 study. Discussed with Bill James APRN His RN Renan told me that the patient passes the walk study, does not need O2 at home. 2) Follow up in office Apr 16 with me. 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 Call , get details. 3) Continue to use pulmonary hygiene items at home, IS, measure peak flows and record. 4) www.aaaai.org for weather, air quality, asthma info, house cleaning information, peak flow use and recording. 5) Avoid poor air quality, pollution, high pollen and mold days. Avoid unnecessary travel. 6) 04/04/24 VQ results discussed; low probability and retained air in bases is seen with asthma. He does not have evidence of a PE. 7) Alpha-1 phenotype testing was sent 04/03, expect this back within a few weeks. (+) family history of asthma - mother now , sister, and brother. 8) He does not need imaging before his visit. We will discuss possible bronchoscopy. I do not favor this unless he has persistent problems. His testing so far has been negative, including extended respiratory pathogen panel, ELADIO, VQ scan 04/04. He did not have sputum to test while he was here, only today had any sputum. He had increased trouble with breathing after eating dinner Tuesday night, possible food allergy or aspiration. 9) Medications: He can go home on these med from a pulmonary standpoint : Singulair 10 mg HS Cetirizine 10 mg po b.i.d prednisone taper Trelegy 100mcg ONE puff a day nebulized albuterol 2.5/3 mL saline TID p.r.n. 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 Subjective Date/time seen: 04/06/24 13:22 Interval history: 04/06/24; This patient has significantly improved. is present. He is on room air, coughing with production of a small amount of light green sputum, 1/4 teaspoon size. He says that this is the most that he has been able to bring up since the whole problem started in November. He and his had questions, discussed all questions. Discussed option of a bronchoscopy however he is now better, so there is no need to undergo invasive procedure. The goal would be to remove retained secretions and test for pathogens. He is achieving secretions clearance with pulmonary hygiene, using IS, Cornet PEP valve, and his peak flow meter shows much higher values. Today, PF is 375 L/min. Initial PF was 150 L/min pre-bronchodilator and 200 L/min post bronchodilator. Values now doubled. They camp frequently, with exposure to bonfires. He is not lighting bonfires with his current problems. WBC is 16.5k today, higher. No fever. 04/03/24; f/u cough, shortness of breath, mucus plugging; he says he turned corner today, had a nebulized treatment, seems better. He has a lot of questions. we went over these, orders entered. He wants to use his own CPAP, has in the room. Asked questions about his inhaled meds, answered. BP still high, metoprolol 12.5 mg po Q 12 hours started, and I started HCTZ 12.5 mg in the am. His peak flows are low, 150 before bronchodilator, 200 mg afterwards. 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 He does not use supplemental oxygen at home. Last night, he was transferred to IMU with respiratory distress, increased respiratory rate and shortness of breath with bronchospasm. He returned from a 7 day trip starting [facility], flew to [place] for a cruise to [facility], last stop was [place] for 6 hours on the beach, back to [place], flew 3 hours to [facility]. during the flight, he started having shortness of breath and left sided chest pain, no improvement after using his nebulizer at home. He came to the ER here 03/31 because he could not breathe. He had a respiratory alkalosis with hypoxemia on his arterial blood gas, currently on 4 liters/minute. His CTA was poor quality due to movement artifact however there was no distinct infiltrate, PE, or pleural effusion. On admission his white blood cell count was 12.2, today it elevated 20.4 with 88% neutrophils. He stopped lisinopril a week and a half ago, switched to irbesartan 150 mg a day. 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 Quit tobacco in 1988. He has been a regular marijuana smoker for decades, smokes because he likes it. Says he quit regular use Jan 2024 when he was admitted 5 days at [facility]. Lives with is Ann Rivero. They have travelled extensively in 2023. In November, the camped, and he found a tick, did not have an rash associated with this tick bite. They camped 28 times in their RV in the last year, frequently in the [place] and some caves. 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 His travels have been to [place], [place]; he has still had cough, wheezing and shortness of breath in these unspoiled areas. He had a visit with allergy-carbon paper coating supervisor recently, pulled up information on the portal. His diagnoses included chronic urticaria, chronic allergic conjunctivitis, allergic rhinitis due to pollen, allergic rhinitis due to animal dander, moderate persistent asthma and COPD. 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 He had (-) ELADIO, rheumatoid factor, TPO antibody, endomysial antibody, elevated tryptase 29, normal is less than 13. He started having problems with breathing in December 2023. He had a tick bite in November while camping, no rash. Symptoms included coughing, wheezing, shortness of breath. At the time, his cough was so severe that he passed out= cough syncope I reviewed records from [facility], 01/14/2024, in the ER c/o a month of wheezing, coughing and shortness of breath, rash; had completed Augmentin, sw itched to cefazolin. He had a CT scan on 01/14/2024 in [place] showing mucus plugging and thickened airways. Eosinophil count was 6.5%, total eosinophils 1020, elevated. After first day, eosinophil counts were normal. He had a recent rash, said that he had nothing visible on his skin, however he h ad itching, had large welts where he scratched his skin. In [place], he reported being inside of caves and [place]; he had testing that was negative for influenza A/B, RSV, extended respiratory pathogen panel which typically has 30 viruses, fungal testing including histoplasmosis,blastomycosis, aspergillus; Urine antigen was negative for Legionella, Strep pneumoniae, was treated with and improved with azithromycin and prednisone during hospitalization, was discharged on Trelegy and DuoNebs. He had a huge benefit using the nebulized bronchodilators. PMH: * Hypertension, recently switched to irbesartan from lisinopril. * Hyperlipidemia * JEISON, repeat split night study Dec 2022= AHI 8.4, karen 86%, optimal pressure 12 cm. * Osteoarthritis with Left knee surgery 2022. * chronic urticaria, allergic rhinitis, allergic conjunctivitis, asthma and COPD diagnosed on Hall Coordinator visit within the last few weeks. Started Singulair. DATA * 04/02/24 extended viral respiratory pathogen panel; adenovirus, rhinovirus/enterovirus, influenza A subtypes H1H3, influenza B, human metapneumovirus, RSV A/B, human parainfluenza 1/2/3. * 04/04/24; VQ scan: 04/04/2024 13:42 INDICATION: Chronic shortness of breath. TECHNIQUE: 7.9 mCi Xenon-133 was given for ventilation images. 5.4 mCi Tc-99m MAA was administered intravenously for perfusion images. Scintigraphic images of the chest were obtained. COMPARISON: Chest 2 views 04/04/2024, chest CT 04/02/2024; FINDINGS: The ventilation images demonstrate retention in the mid and lower lung zones. The perfusion images demonstrate small defects in the lower lobes. IMPRESSION: Low probability for pulmonary embolism. * 04/02/2024; echo;Definity contrast administered improved wall motion interpretation. 2. Left ventricular chamber dimension is normal. 3. Left ventricular systolic function is normal, estimated at 65-70%. 4. The left ventricular diastolic function is grade I diastolic dysfunction. 5. E/e' 7 is not elevated. 6. Left atrial chamber dimension is mildly enlarged. * 04/02/2024 CTA ; There is mild scarring at the lung apices. There is a 3 mm nodule in right upper lobe, likely benign. There is mild atelectasis bilaterally. There is mucous plugging in the lower lobes. No pleural effusion. The heart size is normal. No pericardial effusion. There are coronary artery calcifications. There is no pericardial effusion. There is no pulmonary embolus. There is severe cervical and thoracic spondylosis. IMPRESSION: No pulmonary embolus. * He had negative MRSA swab, viral swabs for influenza A/B, RSV, SARS-CoV-2. Review of Systems Review of Systems: All systems reviewed & are unremarkable except as noted in HPI and below Exam Narrative: GEN: Alert, oriented, not in distress. He is off supplemental O2. He has sputum that is more abundant than what he has had since this entire event started 4.5 months ago. Voice is a little hoarse, at times. HEENT: pupils are equal, EOMI, symmetrical face; oral membranes moist NECK: Trachea is midline CHEST: Equal air entry, symmetric excursion, no wheezes CV: Regular S1S2 no m/g/r ABD : (+) bowel sounds Extremities : no clubbing, cyanosis, or edema, no calf tenderness, no swelling. No rash. PSYCH: normal thought and speech, gait is not tested. Objective Data Vital Signs Vital Signs: Vital Signs - 24 hr 04/05/24 14:25 04/05/24 14:32 04/05/24 15:55 Temperature 36.3 C L Pulse Rate 104 H 98 98 Respiratory Rate 18 18 16 Blood Pressure 154/78 H Pulse Oximetry 94 Oxygen Delivery 04/05/24 16:00 04/05/24 20:12 04/05/24 20:12 Temperature Pulse Rate 100 96 Respiratory Rate 18 Blood Pressure Pulse Oximetry 95 Oxygen Delivery Room Air 04/05/24 20:25 04/05/24 21:00 04/05/24 20:00 Temperature 36.4 C L Pulse Rate 72 104 H Respiratory Rate 20 Blood Pressure 159/85 H Pulse Oximetry 94 Oxygen Delivery Room Air 04/05/24 20:00 04/06/24 00:00 04/05/24 20:23 Temperature Pulse Rate 101 H 83 95 Respiratory Rate 18 Blood Pressure Pulse Oximetry Oxygen Delivery 04/06/24 04:00 04/05/24 23:30 04/06/24 06:05 Temperature 36.4 C L Pulse Rate 70 82 100 Respiratory Rate 20 Blood Pressure 141/55 H Pulse Oximetry 91 95 Oxygen Delivery CPAP 04/06/24 07:58 04/06/24 07:20 04/06/24 07:20 Temperature 36.8 C Pulse Rate 90 85 85 Respiratory Rate 20 18 18 Blood Pressure 158/93 H Pulse Oximetry 99 95 Oxygen Delivery Room Air 04/06/24 07:30 04/06/24 08:22 04/06/24 08:00 Temperature Pulse Rate 88 90 90 Respiratory Rate 18 Blood Pressure Pulse Oximetry Oxygen Delivery Intake/Output Intake/Output: Intake & Output 04/03/24 04/04/24 04/05/24 04/06/24 23:59 23:59 23:59 23:59 Intake Total 2360 2200 1220 880 Output Total 1203 450 800 Balance 1157 1750 1220 80 Meds/Results Medications: Active Medications Generic Name Dose Route Start Last Admin Trade Name Freq PRN Reason Stop Dose Admin Amlodipine Besylate 10 mg 04/01/24 13:10 04/06/24 08:23 Amlodipine Besylate 10 Mg Tablet PO 10 mg QAM JOSEMANUEL Administration Atorvastatin Calcium 40 mg 04/02/24 09:00 04/06/24 08:22 Atorvastatin 40 Mg Tablet PO 40 mg DAILY JOSEMANUEL Administration Enoxaparin Sodium 40 mg 04/04/24 09:00 04/06/24 08:23 Enoxaparin 40 Mg/0.4 Ml Syringe SUB-Q 40 mg DAILY JOSEMANUEL Administration Fluticasone Propionate 2 puff 04/01/24 20:00 04/06/24 07:20 Fluticasone Prop 44 Mcg (*Sp) 10.6 Gm INHALATION 2 puff Q12HRT JOSEMANUEL Administration Guaifenesin 1,200 mg 04/01/24 21:00 04/06/24 08:22 Guaifenesin 12 Hr 600 Mg Tabcr PO 1,200 mg Q12HR JOSEMANUEL Administration Hydrochlorothiazide 12.5 mg 04/04/24 09:00 04/06/24 08:22 Hydrochlorothiazide 12.5 Mg Capsule PO 12.5 mg QAM JOSEMANUEL Administration Irbesartan 150 mg 04/04/24 09:00 04/06/24 08:23 Irbesartan 150 Mg Tablet PO 150 mg DAILY JOSEMANUEL Administration Levalbuterol HCl 1.25 mg 04/01/24 02:00 04/06/24 07:20 Levalbuterol Neb 1.25 Mg/3 Ml INHALATION 1.25 mg Q6HRT JOSEMANUEL Administration Levofloxacin 750 mg 04/03/24 20:00 04/05/24 20:24 Levofloxacin 750 Mg Tablet PO 750 mg Q24H JOSEMANUEL Administration Loratadine 10 mg 04/02/24 09:00 04/06/24 08:23 Loratadine 10 Mg Tablet PO 10 mg QAM JOSEMANUEL Administration Metoprolol Tartrate 12.5 mg 04/03/24 21:00 04/06/24 08:22 Metoprolol Tartrate 12.5 Mg Tablet PO 12.5 mg Q12HR JOSEMANUEL Administration Montelukast Sodium 10 mg 04/01/24 21:00 04/05/24 20:25 Montelukast Sodium 10 Mg Tablet PO 10 mg QHS JOSEMANUEL Administration Pantoprazole Sodium 40 mg 04/02/24 09:00 04/06/24 08:22 Pantoprazole 40 Mg Tablet PO 40 mg DAILY JOSEMANUEL Administration Prednisone 40 mg 04/07/24 08:00 Prednisone 20 Mg Tablet PO DAILY@0800 [facility] Sodium Chloride 1 spray 04/03/24 20:26 Saline 0.65% Brenden Soln 44 Ml Btl NASAL Q6HR PRN Congestion Radiology Results: ITS Impressions Venous Doppler Study 04/01/24 19:20 IMPRESSION: Patent bilateral lower extremity veins. No evidence of deep venous thrombosis. Chest CTA 04/02/24 14:22 IMPRESSION: 1. No pulmonary embolus. Pulmonary Perfusion Imaging 04/04/24 13:59 IMPRESSION: 1. Low probability for pulmonary embolism. Chest X-Ray 04/04/24 14:01 IMPRESSION: 1. Mild atelectasis at the lung bases. Labs Labs: Laboratory Results - last 24 hr 04/02/24 04/06/24 00:02 04:57 WBC 16.3 H RBC 4.83 Hgb 15.6 Hct 44.0 MCV 91.1 MCH 32.3 MCHC 35.5 RDW 12.0 Plt Count 277 MPV 8.9 Immature Gran % (Auto) 3.1 H Neut % (Auto) 78.0 H Lymph % (Auto) 10.5 L [place] % (Auto) 7.9 Eos % (Auto) 0.1 Baso % (Auto) 0.4 Lymph # (Auto) 1.71 [place] # (Auto) 1.3 H Eos # (Auto) 0.0 Baso # (Auto) 0.1 Abs Immat Gran (auto) 0.51 H Absolute Neuts (auto) 12.7 H Absolute Nucleated RBC 0.000 Nucleated RBC % 0.0 Sodium 134 L Potassium 4.4 Chloride 103 Carbon Dioxide 24 Anion Gap 7 BUN 32 H Creatinine 0.90 Estim Creat Clear Calc 73 Estimated GFR > 60 Glucose 175 H Calcium 9.1 Total Bilirubin 0.7 AST 53 ALT 110 H Alkaline Phosphatase 94 Total Protein 7.0 Albumin 4.1 Ref Lab Test Name Resp vir alcantar pcr Ref Lab Test Result See comment
--- NOTE | 2024-04-06 14:23 | PM.DS ---
DS: Admitting Diagnosis Discharge Date 04/06/2024 Admitting Diagnosis Acute hypoxic respiratory failure, GERD without esophagitis, JEISON DS: Discharge Diagnosis Discharge Diagnosis (1) Acute hypoxic respiratory failure: Code(s): J96.01 - Acute respiratory failure with hypoxia Status: Acute (2) Dyspnea on exertion: Code(s): R06.09 - Other forms of dyspnea Status: Acute (3) Mucus plugging of bronchi: Code(s): T17.500A - Unspecified foreign body in bronchus causing asphyxiation, initial encounter Status: Acute (4) Tachycardia: Code(s): R00.0 - Tachycardia, unspecified Status: Acute (5) Acute bronchospasm: Code(s): J98.01 - Acute bronchospasm Status: Acute (6) SOB (shortness of breath): Code(s): R06.02 - Shortness of breath Status: Acute (7) Chronic cough: Code(s): R05.3 - Chronic cough Status: Acute (8) Personal history of tobacco use: Code(s): Z87.891 - Personal history of nicotine dependence Status: Acute (9) Obstructive sleep apnea: Code(s): G47.33 - Obstructive sleep apnea (adult) (pediatric) Status: Acute (10) History of cannabis abuse: Code(s): F12.11 - Cannabis abuse, in remission Status: Acute DS: Summary Hospital Course Reason for hospitalization: dyspnea (complicated course) Hospital Course: Patient had been travelling all summer and developed a waxing/waning dyspnea after spending time in [facility]. When he went to the [facility] he ended up hospitalized in [place] for dyspnea. Once he improved he continued his travels and went on a cruise to several [facility] destinations. All along he was participating in a variety of adventures but getting more short of breath. On arrival back to [place] his dyspnea was much worse and they almost did not let him board the plane to fly back to [facility]. Immediately after landing, patient came to this facility for treatment. He was found to have persistent lower lobes mucous plugging and was hypoxic. Patient condition worsened over the weekend and he ended up in IMU. Pulmonology was consulted and made some treatment changes. Patient continued to improve but he and his had a LOT of questions and uncertainties. Today, Dr. Brock was able to speak with them again. Patient is on room air for 2 days and appearing much better. Patient able to discharge with several new prescriptions including short term Levaquin, Prednisone, Xopenex nebs and longer term nasal saline, HCTZ, metoprolol and Trelegy Ellipta. Duo-nebs stopped. Patient to follow up with Primary Care and Dr. Brock. Time spent discussing smoking cessation with patient: 3 to 10 minutes Status at Discharge Cognitive/behavioral status at discharge: awake, alert, oriented and pleasant Functional status at discharge: independent ambulation Overall status at discharge: patient is progressing back to baseline Time Spent with Patient Time attestation: Total time spent providing and/or coordinating discharge services: 45 minutes Time spent: Greater than 30 minutes Exam Narrative: General: Improved appearing Head: atraumatic Eyes:PERRLA, sclera clear ENT: moist mucous membranes, mild nasal congestion Neck: supple, no JVD, no adenopathy, trachea midline Cardiac: Normal S1 and S2. RRR, Respiratory: Decreased breath sounds bilaterally, no wheezing heard today, currently on room air Gastrointestinal: soft, non-distended, non-tender, normoactive bowel sounds. Extremities: moves all extremities well, no edema, good ROM, strength 5/5 Skin: clean, dry, intact. No wounds or lesions. Neuro: Alert and oriented x4, cranial nerves intact, no neuro deficits. Psych: normal mood, normal affect, interactive DS: Data Data Completed and Pending Labs on day of discharge: Labs from last 24 hours 04/06/24 04/02/24 04:57 00:02 WBC 16.3 H RBC 4.83 Hgb 15.6 Hct 44.0 MCV 91.1 MCH 32.3 MCHC 35.5 RDW 12.0 Plt Count 277 MPV 8.9 Immature Gran % (Auto) 3.1 H Neut % (Auto) 78.0 H Lymph % (Auto) 10.5 L [place] % (Auto) 7.9 Eos % (Auto) 0.1 Baso % (Auto) 0.4 Lymph # (Auto) 1.71 [place] # (Auto) 1.3 H Eos # (Auto) 0.0 Baso # (Auto) 0.1 Abs Immat Gran (auto) 0.51 H Absolute Neuts (auto) 12.7 H Absolute Nucleated RBC 0.000 Nucleated RBC % 0.0 Sodium 134 L Potassium 4.4 Chloride 103 Carbon Dioxide 24 Anion Gap 7 BUN 32 H Creatinine 0.90 Estim Creat Clear Calc 73 Estimated GFR > 60 Glucose 175 H Calcium 9.1 Total Bilirubin 0.7 AST 53 ALT 110 H Alkaline Phosphatase 94 Total Protein 7.0 Albumin 4.1 Ref Lab Test Name Resp vir alcantar pcr Ref Lab Test Result See comment Preliminary micro results at discharge 04/01/24 19:58 Blood Culture - Preliminary Blood 04/01/24 19:50 Blood Culture - Preliminary Blood Discharge Plan Discharge Consulting providers: Amalia Brock Discharging Clinician: Kennedy James Anticipated Discharge Date/Time: 04/06/24 15:10 Patient Disposition: Home, Self-Care Activity: as tolerated Diet: as tolerated Discharge Instructions: Dr. Brock's office is going to set up an appointment to get you in for follow up. Call next week to check on this appointment. Make follow up with your primary care provider. Two new blood pressure medications were added by Dr. Brock. Hydrochlorothiazide and metoprolol. Check your blood pressure once a day and write it on a list to take to your primary care for follow up and management of blood pressure medication prescriptions Patient Instructions: Antibiotic Form Stand Alone Forms: General Discharge Information Follow-up/Referrals: Amalia Brock MD [Physician] - Call for Appointment Dilip Alfonso MD [Primary Care Provider] - Follow Up with Primary Dr Discharge Medications: New guaifenesin [Mucus Relief ER] 600 mg Tablet Extended Release 12hr 1,200 mg PO Q12HR Qty: 60 0RF hydrochlorothiazide 12.5 mg Capsule 12.5 mg PO QAM Qty: 30 0RF levalbuterol HCl 1.25 mg/3 mL Solution For Nebulization 1.25 mg inhalation Q6HRT Qty: 90 0RF prednisone 20 mg Tablet 40 mg PO DAILY@0800 Qty: 6 0RF Saline Mist 0.65 % Aerosol,[place] 1 spray intranasal Q6HR PRN (Reason: Congestion) Qty: 45 0RF levofloxacin 750 mg tablet 750 mg PO DAILY Qty: 4 0RF metoprolol tartrate 25 mg tablet 12.5 mg PO BID Qty: 30 2RF Continued cetirizine [Zyrtec] 10 mg tablet 10 mg PO BID montelukast [Singulair] 10 mg tablet 10 mg PO QHS Patient Comments: prescribed by horse and wagon driver famotidine 40 mg tablet 40 mg PO DAILY Patient Comments: prescribed by horse and wagon driver irbesartan 150 mg tablet 150 mg PO DAILY Qty: 90 3RF Trelegy Ellipta 100-62.5-25 mcg blister with device 1 inh inhalation DAILY Qty: 60 11RF albuterol sulfate 90 mcg/actuation HFA aerosol inhaler 1 - 2 puff inhalation Q4-6H PRN (Reason: shortness of breath or wheezing) Qty: 8.5 11RF Ocuvite Adult 50 Plus 250 mg (90 mg-160 mg) capsule 1 cap PO DAILY amlodipine 10 mg tablet 10 mg PO . Q.a.m. Qty: 90 3RF atorvastatin 40 mg tablet 40 mg PO DAILY Qty: 90 3RF omeprazole 20 mg capsule,delayed release(DR/EC) 20 mg PO DAILY Qty: 90 3RF tadalafil [Cialis] 20 mg tablet 20 mg PO DAILY PRN (Reason: sexual activity) Qty: 30 4RF (DME) CPAP See Rx Instructions .Route .MEDSUPPLY Qty: 1 0RF Rx Instructions: Resmed AirSense 11 CPAP at 11 cm H2O, size medium Resmed AirFit F20 full face mask, CPAP filters/tubing and heated humidity Discontinued ipratropium-albuterol 0.5 mg-3 mg(2.5 mg base)/3 mL solution for nebulization 3 ml inhalation TID PRN (Reason: shortness of breath or wheezing) Qty: 90 11RF Date of admission: 04/01/24 07:41 Primary Care Provider: Dilip Alfonso Admitting Provider: Nia Iverson Attending physician on admission: Tanisha Sharma Condition: Improved Quality VTE Prophylaxis VTE prophylaxis: pharmacologic ordered Hospitalist MIPS Heart Failure (Exclusion) Patient has history of Heart Transplant or Left Ventricular Assistive Device?: No IF YES, STOP HERE Heart Failure (Qualifier) Patient has current or prior documentation of LVEF less than or equal to 40%, or mod/servere depressed LVSF?: No IF NO, STOP HERE
== END 2024-04-06 15:45 | disposition home or self-care (01) | DRG 189 ==
LOC: ANHED 18:09 → ANH2MED 20:04 → ANHIMU 04-01 18:33 → ANH2MED 04-04 23:13
PROVIDERS: Internal Medicine; Internal Medicine Critical Care Medicine; Nurse Practitioner Acute Care; Physician Assistant; Admitting Provider Internal Medicine; Emergency Provider Preventive Medicine Aerospace Medicine; PCP Family Medicine; Visit Provider Nurse Practitioner
DX: J96.01 Acute respiratory failure with hypoxia (principal); T17.590A Other foreign object in bronchus causing asphyxiation, initial encounter; J98.01 Acute bronchospasm; I10 Essential (primary) hypertension; I73.00 Raynaud's syndrome without gangrene; E78.2 Mixed hyperlipidemia; K21.9 Gastro-esophageal reflux disease without esophagitis; M17.12 Unilateral primary osteoarthritis, left knee; G47.33 Obstructive sleep apnea (adult) (pediatric); G62.9 Polyneuropathy, unspecified; F12.11 Cannabis abuse, in remission; Z20.822 Contact with and (suspected) exposure to COVID-19; Z96.652 Presence of left artificial knee joint; Z87.891 Personal history of nicotine dependence
CPT/HCPCS: 36415; 36600; 71045; 71046; 71275; 78582; 80048; 80053; 80307; 82104; 82805; 83605; 83690; 83735; 83880; 84484; 85018; 85025; 85610; 85730; 86038; 86225; 86235; 86364; 87040; 87633; 87634; 87636; 87637; 87641; 93005; 93970; 94002; 94003; 94618; 94640; 94667; 94668; 96365; 96366; 96368; 96376; 99285; A9270; A9540; A9558; C8929; G0378; J1650; J1956; J2060; J2270; J2919; J3475; J7030; Q9957; Q9967

== ENCOUNTER 2024-04-10 09:47 | Outpatient (CLI) | payer MEDICARE, OTHER, SELFPAY ==
--- NOTE | 2024-04-10 10:51 | EST_ITS ---
Patient Info Name: Jeferson Comer Age: 68 years : 1955 Gender: Male Ht: 71 in Wt: 181 lbs BSA: 2.04 m2 HR: 85 bpm BP: 153 / 93 mmHg Exam Date: 04/10/2024 11:03 AM Exam Location: Echo Lab Patient Status: Outpatient Admit Date: 04/10/2024 Staff Ordering Physician: Dilip Alfonso MD Attending Provider: Dilip Alfonso MD Exercise Technologist: Bruna Barragan [facility] Exercise Physician: Dawood Luna DO Exam Type: CA stress test treadmill Study Info A treadmill exercise stress test was performed. Summary 1. 1. Negative Shahzad exercise stress test for ischemic ST changes by ECG criteria. However, patient achieved only 83% MPHR for age group which reduces sensitivity of the test. 2. 2. Reduced functional capacity, achieving 7 METs of workload. 3. 3. Appropriate HR response to exercise. 4. 4. Appropriate HR recovery at 1 minute post exercise. 5. 5. Baseline hypertension. 6. 6. No imaging with stress testing. 7. 7. Patient informed of the above results. Protocol: Shahzad Stress ECG Details Stage: REST Duration (min): 0 min : 56 sec Speed (mph): 0.0 Grade (%): 0 HR (bpm): 79 SBP (mmHg): 153 DBP (mmHg): 93 METS: --- Stage: REST Duration (min): 7 min : 52 sec Speed (mph): 0.0 Grade (%): 0 HR (bpm): 84 SBP (mmHg): 153 DBP (mmHg): 93 METS: --- Stage: STAGE 1 Duration (min): 1 min : 0 sec Speed (mph): 1.7 Grade (%): 10 HR (bpm): 96 SBP (mmHg): 153 DBP (mmHg): 93 METS: --- Stage: STAGE 1 Duration (min): 2 min : 0 sec Speed (mph): 1.7 Grade (%): 10 HR (bpm): 101 SBP (mmHg): 153 DBP (mmHg): 93 METS: --- Stage: STAGE 1 Duration (min): 3 min : 0 sec Speed (mph): 1.7 Grade (%): 10 HR (bpm): 103 SBP (mmHg): 180 DBP (mmHg): 82 METS: --- Stage: STAGE 2 Duration (min): 1 min : 0 sec Speed (mph): 2.5 Grade (%): 12 HR (bpm): 111 SBP (mmHg): 180 DBP (mmHg): 82 METS: --- Stage: STAGE 2 Duration (min): 2 min : 0 sec Speed (mph): 2.5 Grade (%): 12 HR (bpm): 119 SBP (mmHg): 188 DBP (mmHg): 81 METS: --- Stage: STAGE 2 Duration (min): 3 min : 0 sec Speed (mph): 2.5 Grade (%): 12 HR (bpm): 126 SBP (mmHg): 188 DBP (mmHg): 81 METS: --- Stage: RECOVERY Duration (min): 0 min : 59 sec Speed (mph): 0.0 Grade (%): 0 HR (bpm): 114 SBP (mmHg): 192 DBP (mmHg): 73 METS: --- Stage: RECOVERY Duration (min): 1 min : 59 sec Speed (mph): 0.0 Grade (%): 0 HR (bpm): 105 SBP (mmHg): 192 DBP (mmHg): 73 METS: --- Stage: RECOVERY Duration (min): 2 min : 59 sec Speed (mph): 0.0 Grade (%): 0 HR (bpm): 96 SBP (mmHg): 194 DBP (mmHg): 87 METS: --- Stage: RECOVERY Duration (min): 3 min : 4 sec Speed (mph): 0.0 Grade (%): 0 HR (bpm): 95 SBP (mmHg): 194 DBP (mmHg): 87 METS: --- Rest HR: 84 bpm Peak HR: 126 bpm Rest Sys BP: 153 mmHg Peak Sys BP: 194 mmHg Max Pred HR: 152 bpm % Max Pred HR: 83 % Target HR: 129 bpm Max RPP: 24,444 bpm*mmHg Shine Score: -2 Termination Reason: Maximal effort/unable to continue Cardiac Symptoms: Shortness of breath Max ST Seg Deviation: 1.70 mm Total Time: 6 min : 0 sec Rest [place] BP: 93 mmHg Peak [place] BP: 87 mmHg Angina Score: None Total METS: 7.1 Resting ECG Sinus rhythm. Stress ECG No ST changes. Arrhythmias None. Report Signatures
== END 2024-04-10 09:48 | disposition home or self-care (01) ==
PROVIDERS: PCP Family Medicine; Visit Provider Family Medicine
DX: R06.09 Other forms of dyspnea (principal)
CPT/HCPCS: 93017

== ENCOUNTER 2024-07-25 09:35 | Inpatient (IN) | payer MEDICARE, OTHER, SELFPAY ==
[2024-07-25] VITALS (51 sets, daily range): BP systolic 101–209; BP diastolic 60–95; PULSE 90–145; RESP 14–45; TEMP 36.1–36.6; O2SAT 88–100; BMI 25.4
--- NOTE | ~2024-07-25 | CT_ITS ---
CT diagnostic chest wo con Ordering provider: Maggie Morales APRN History: 68 years Male with . hypoxic . Comparison: None. Technique: CT chest without IV contrast. Radiation reduction technique utilized.The dose-length product was 390.57 mGy-cm. FINDINGS: VISUALIZED THORACIC INLET: Normal. Endotracheal tube is seen in the trachea with the tip at the jose. Nasogastric tube is seen with th e tip in the distal stomach. MEDIASTINUM: Aorta/coronary arteries: Mild atheromatous disease. Heart/other: The heart is not enlarged. Lymph nodes: No mediastinal or hilar adenopathy. 1 cm paratracheal lymph node is seen. Precarinal lym ph node is seen measuring 1.2 cm. Other smaller lymph nodes are seen LUNGS: Bilateral basal atelectatic changes with trace of effusion more on the right side. No pulmonar y nodules or masses. No pneumothorax. VISUALIZED UPPER ABDOMEN: 5 mm stone in the left kidney upper pole. Otherwise, the visualized upper a bdomen is normal. MUSCULOSKELETAL: Soft tissues: The superficial soft tissues are normal. Bones: Age appropriate degenerative changes of the spine. IMPRESSION: 1. Minimal bilateral basal atelectasis with minimal effusion. 2. Endotracheal tube with the tip at the jose. Retraction by 2 to 3 cm is advised. 3. Left kidney stone. Reviewed, dictated and finalized at location A. IMPRESSION: 1. Minimal bilateral basal atelectasis with minimal effusion. 2. Endotracheal tube with the tip at the jose. Retraction by 2 to 3 cm is ad vised. 3. Left kidney stone.
--- NOTE | ~2024-07-25 | XR_ITS ---
EXAMINATION: XR chest ET placement, XR abdomen gastric tube insert DATE: 07/25/2024 16:45 (accession [id number]), 07/25/2024 16:48 (accession [id number]) INDICATION: Endotracheal tube placement TECHNIQUE: frontal view of the chest was obtained. COMPARISON: 1. Chest radiograph dated 07/25/2024 at 10:36 AM 2. AP view of the abdomen was obtained. FINDINGS: Endotracheal tube tip 1 cm above the jose. Nasogastric tube coiled in the stomach with in proximal side port in the body the stomach and distal tip projecting near the level of the gastroesophageal ju nction. Lungs are clear with no focal airspace opacities, pulmonary edema, pleural effusion or pneumothorax. The cardiomediastinal silhouette is normal. No dilated loops of gas-filled bowel in the abdomen to crawley ggest obstruction. IMPRESSION: 1. Endotracheal tube tip 1 cm above the jose. 2. No acute cardiopulmonary disease. 3. Nasogastric tube extends into the stomach with distal tip projecting near the level of the gastroe sophageal junction. Unclear with only AP projections tube extends back into the gastroesophageal junc tion were positioned more anteriorly in the body but superimposed over the gastroesophageal junction. Consider obtaining an oblique or crosstable lateral view for more definitive determination. Reviewed, dictated and finalized at location B. IMPRESSION: 1. Endotracheal tube tip 1 cm above the jose. 2. No acute cardiopulmonary disease. 3. Nasogastric tube extends into the stomach with distal tip projecting near th e level of the gastroesophageal junction. Unclear with only AP projections tube extends back into the gastroesophageal junction were positioned more anteriorl y in the body but superimposed over the gastroesophageal junction. Consider obt aining an oblique or crosstable lateral view for more definitive determination.
--- NOTE | ~2024-07-25 | XR_ITS ---
Portable chest x-ray Comparison: 07/29/2024 Clinical History: Respiratory failure Findings: Endotracheal tube, NG tube, and left-sided PICC line are in place. There is minimal pleura l effusion with probable left basilar atelectasis. Right lung clear. Cardiomediastinal silhouette is stable. Bones and soft tissues are unremarkable. Impression: Minimal left pleural effusion with probable left basilar atelectasis. Correlate clinically for pneumo madan. Support tubes, as above. Reviewed, dictated and finalized at location . Impression: Minimal left pleural effusion with probable left basilar atelectasis. Correlate clinically for pneumonia. Support tubes, as above.
--- NOTE | ~2024-07-25 | XR_ITS ---
CHEST RADIOGRAPH CLINICAL HISTORY: respiratory failure . COMPARISON: 07/26/2024 TECHNIQUE: Single portable view of the chest. FINDINGS Left sided PICC line tip projecting over the right atrium. Endotracheal tube is identified with its tip projecting approximately 4 cm above the base of the ladarius na. Nasogastric tube identified with its tip extending below the left hemidiaphragm, presumably within th e stomach. The remainder of the cardiomediastinal silhouette is otherwise unremarkable. Blunting of the left costophrenic sulcus suggesting a small left-sided pleural effusion. Dense opacification of the left hemidiaphragm suggesting an underlying left basilar infiltrate. The remainder of the lungs are clear. IMPRESSION: Left basilar infiltrate is suspected with a small left-sided pleural effusion. Supportive lines and tubes in good position. Reviewed, dictated and finalized at location A.
--- NOTE | ~2024-07-25 | US_ITS ---
EXAMINATION: US renal BI DATE: 07/27/2024 13:51 INDICATION: Acute renal insufficiency TECHNIQUE: Multiple ultrasound grayscale images of the kidneys were obtained. COMPARISON: None. FINDINGS: The right kidney measures 10.5 x 5.4 x 5.9 cm. The left kidney measures 11.8 x 5.4 x 5.2 cm. The kidn eys demonstrate normal echogenicity. There is no hydronephrosis in either kidney. No stones identifi ed. The bladder is decompressed with a Garcia catheter in place which limits evaluation. IMPRESSION: 1. Normal kidneys without hydronephrosis. Reviewed, dictated and finalized at location B.
--- NOTE | ~2024-07-25 | XR_ITS ---
EXAMINATION: XR chest 1V portable DATE: 07/25/2024 10:38 INDICATION: Dyspnea. Wheezing. TECHNIQUE: A single frontal view of the chest was obtained. COMPARISON: Chest 2 views 04/04/2024 FINDINGS: There is no pneumonia, pleural effusion, or pneumothorax. The heart size is normal. IMPRESSION: 1. No acute cardiopulmonary disease. Reviewed, dictated and finalized at location A.
--- NOTE | ~2024-07-25 | CT_ITS ---
EXAMINATION:CT diagnostic chest wo con DATE: 07/30/2024 12:23 INDICATION: Acute respiratory failure. TECHNIQUE: Computed tomography (CT) of the chest was performed without intravenous contrast. Automate d exposure control and iterative reconstruction technique were employed. The dose-length product (DLP ) was 532.14 mGy-cm. COMPARISON: Chest CT 07/25/2024 FINDINGS: There are mild airspace opacities in right upper lobe. There are airspace opacities with vo lume loss involving the lower lobes, left worse than right. There is a 4 mm nodule in right upper lob e, likely benign. There is a trace left pleural effusion. The heart size is normal. There are coronar y artery calcifications. No pericardial effusion. There is an endotracheal tube tip is in expected po sition. The nasogastric tube tip is in the stomach. A left upper extremity peripherally inserted cent ral venous catheter (PICC) is seen with tip in the right atrium. There is a 4 mm stone in left kidney . There is severe cervical spondylosis and mild thoracic spondylosis. IMPRESSION: 1. Mild airspace opacities in right upper lobe, consistent with atelectasis versus pneumonia. 2. Airspace opacities in the lower lungs with volume loss, left worse than right, likely atelectasis. Reviewed, dictated and finalized at location A. IMPRESSION: 1. Mild airspace opacities in right upper lobe, consistent with atelectasis meg jessy pneumonia. 2. Airspace opacities in the lower lungs with volume loss, left worse than righ t, likely atelectasis.
--- NOTE | ~2024-07-25 | XR_ITS ---
MODIFIED ESOPHAGRAM HISTORY: Assess for aspiration TECHNIQUE: Modified barium esophagram was performed on 08/02/2024. I administered fluoroscopy and perfo rmed the exam with speech pathologist. Patient was seated for lateral fluoroscopic imaging for inges tion of thin liquids, pudding, solids and quantified amounts, followed by thin liquids in uncontrolle d amounts. This was recorded on tape. A single fluoroscopic spot image was also recorded. The DAP for this procedure was 1.115 Gycm2. The amount of fluoroscopy time used during this procedure was 1.3 mi nutes. FINDINGS: Oral stage: Adequate function. Pharyngeal stage: Possible trace laryngeal penetration without aspiration following the swallow with solid consistency. Cervical/esophageal stage: Adequate function. IMPRESSION: 1 episode of possible trace laryngeal penetration without aspiration. Please correlate w ith speech pathologist findings and specific feeding recommendations. Reviewed, dictated and finalized at location A. IMPRESSION: 1 episode of possible trace laryngeal penetration without aspiratio n. Please correlate with speech pathologist findings and specific feeding mason mmendations.
--- NOTE | ~2024-07-25 | XR_ITS ---
EXAMINATION: XR chest 1V portable DATE: 07/26/2024 05:48 INDICATION: Intubated. TECHNIQUE: A single frontal view of the chest was obtained. COMPARISON: Chest single view 07/25/2024, chest CT 07/25/2024 FINDINGS: There is no pneumonia, pleural effusion, or pneumothorax. The heart size is normal. The cesar ogastric tube tip is in the stomach. The endotracheal tube tip is 5.5 cm above the jose. IMPRESSION: 1. No acute cardiopulmonary disease. Reviewed, dictated and finalized at location A.
--- NOTE | ~2024-07-25 | XR_ITS ---
EXAMINATION: XR chest PICC line DATE: 07/26/2024 10:15 INDICATION: PICC line placement TECHNIQUE: frontal view of the chest was obtained. COMPARISON: Chest radiograph dated 07/26/2024 at 5:10 AM FINDINGS: Interval placement of a left upper extremity peripherally inserted central venous catheter (PICC) tip at the high right atrium on the initial image. This has been retracted to the level of the superior cavoatrial junction on the subsequent image. Endotracheal tube tip 4.3 cm above the jose. Nasogast [place] tube tip in proximal side port in the body the stomach. Lungs remain clear with no focal airspace opacities, pulmonary edema, pleural effusion or pneumothora x. Heart size is normal. IMPRESSION: 1. Lines and tubes in expected position as detailed above with left PICC line tip at the superior cav oatrial junction on the final image. 2. No acute cardiopulmonary disease. Reviewed, dictated and finalized at location B. IMPRESSION: 1. Lines and tubes in expected position as detailed above with left PICC line t ip at the superior cavoatrial junction on the final image. 2. No acute cardiopulmonary disease.
--- NOTE | ~2024-07-25 | XR_ITS ---
Portable chest x-ray Comparison: 07/30/2024 Clinical History: Respiratory failure Findings: Left-sided PICC line is in place. There is discoid left basilar atelectasis or scarring. L ungs are otherwise clear. Cardiomediastinal silhouette is stable. Bones and soft tissues are unremar kable. Impression: Discoid left basilar atelectasis or scarring, otherwise clear lungs. Left-sided PICC line. Reviewed, dictated and finalized at location M. Impression: Discoid left basilar atelectasis or scarring, otherwise clear lungs. Left-sided PICC line.
--- NOTE | 2024-07-25 09:41 | ECG_ITS ---
Test Date: 2024-07-25 09:44:47 Measurements Intervals [place] Rate: 94 P: 69 NE: 155 QRS: 75 QRSD: 94 T: 66 QT: 355 QTc: 446 Interpretive Statements SINUS RHYTHM NONSPECIFIC T-WAVE ABNORMALITY Compared to ECG 04/01/2024 18:17:51 Sinus tachycardia no longer present Electronically Signed On 07-25-2024 13:02:45 CDT by Herrera Cummings M.D.
--- NOTE | 2024-07-25 09:53 | ED.GENADULT ---
HPI - General Adult General Chief complaint: Shortness of Breath/Dyspnea <Maggie Jose August, MANAGER LICENSING - Last Filed: 08/08/24 18:31> Stated complaint: SOB,COUGH,CP <Maggie Jose August, - Last Filed: 08/08/24 18:31> Time Seen by Provider: 07/25/24 09:42 <Maggie Jose August, MANAGER LICENSING - Last Filed: 08/08/24 18:31> History of Present Illness HPI narrative: Jeferson Comer is a 60-year-old male with PMHX of hypertension, GERD who presents with complaints of increased shortness of breath. His at the bedside states that he has been dealing with this wheezing and increased shortness of breath since December and has had pulmonary function tests that have resulted clearing him from having COPD but he has been requiring breathing treatments at home and inhalers and they are exactly sure why. He explains that his shortness of breath exacerbations, on with exertion and this 1 came on this past Tuesday 2 days ago when he was lifting something heavy. The past 2 days he has been trying to do his breathing treatments at home to see if it would improve he states if he rests and stays still his breathing does get better however today he started to develop chest pain in the left side of his chest. He does not use O2 at home. <Maggie Jose August, - Last Filed: 08/08/24 18:31> Related Data Home medications: Home Medications ?Medication ?Instructions ?Recorded ?Confirmed ?Last Taken ?Type gzueqtwz-qyx- 250 mg-dha 90 1 cap PO DAILY 10/27/22 08/05/24 07/25/24 History mg-epa 160 el-qurv-golz-zeax capsule (Ocuvite Adult 50 Plus) cetirizine 10 mg tablet (Zyrtec) 10 mg PO BID allergy symptoms 03/20/24 08/05/24 07/25/24 History <Maggie Jose August, - Last Filed: 08/08/24 18:31> Allergies/adverse reactions: Allergies Allergy/AdvReac Type Severity Reaction Status Date / Time aspirin Allergy Intermediate EYES Verified 08/05/24 20:38 SWELLING ephedrine Allergy Intermediate Hives Verified 08/05/24 20:38 pseudoephedrine Allergy Intermediate Hives Verified 08/05/24 20:38 <Maggie Jose August,N - Last Filed: 08/08/24 18:31> Review of Systems Review of Systems: All systems reviewed & are unremarkable except as noted in HPI and below <Maggie Jose August, - Last Filed: 08/08/24 18:31> [facility] Past Medical History Medical History: Medical History Allergic asthma Tick bite Fatigue Acute hypoxic respiratory failure Inflamed acrochordon (~03/2024) red inflamed tag right axilla 0.2 cm excised 03/20/2024 Elevated fasting glucose (03/06/24) fasting glucose 106 with GFR 72 on 03/06/2024. Chronic cough Personal history of tobacco use 2 packs per day for 23 years with patient stopping 1988. Irritable bowel syndrome with diarrhea Mixed hyperlipidemia Cholesterol 145, triglycerides 99, HDL 50, LDL 75 on 05/10/2023. Cholesterol 162, triglycerides 86, HDL 41, LDL 105 on 03/06/2024. Seasonal allergic rhinitis Urticaria Overweight (BMI 25.0-29.9) Acute bronchitis (~05/29/24) Chest x-ray normal on 08/18/2023. acute bronchitis with parainfluenza infection 05/29/2024 with hospitalization with discharge 06/02/2024. Gastro-esophageal reflux disease without esophagitis Encounter for prostate cancer screening PSA 2.0 on 05/10/2023. Stress fracture of femur medial femoral condyle right knee 2022 Arthritis of right knee Peripheral neuropathy Osteoarthritis of left knee Essential (primary) hypertension Male erectile dysfunction, unspecified Non-recurrent unilateral inguinal hernia without obstruction or gangrene Obstructive sleep apnea History of JEISON starting 1989 with split night sleep study 01/20/2023 with AHI of 8.4 with oxygen saturation to 86% with titration to 11 cm of water pressure with AirSense 11 CPAP with ResMed AirFit F20 fullface mask 01/20/2023. Raynaud's syndrome without gangrene <Maggie Jose August, - Last Filed: 08/08/24 18:31> Surgical History Surgical History: Surgical History S/P left unicompartmental knee replacement October 26, 2021 Status post arthroscopy of left knee (05/11/19) Osteochondral defect of condyle of femur History of toe surgery History of hernia repair <Maggie Jose August, - Last Filed: 08/08/24 18:31> Family History Family History: Family History Mother Diabetes mellitus Patient's mother is Family history of malignant neoplasm of brain Father Heart disease Patient's father is Family history of Parkinson's disease Hypertension Sibling Diabetes mellitus Asthma Other Family history of allergic disorder Family history of cardiovascular disease <Maggie Jose August, - Last Filed: 08/08/24 18:31> Social History Social History: Social History Social History: Patient lives with his . 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 He does admit to 3 beers and 3 cocktail weekly. Code status: Full code Surrogate decision maker: 2 grown children Smoking packs per day: 2 Smoking cigarettes per day: 40.0 Years smoked: 15 Smoking pack-years: 30.00 Smoking status: Former smoker Tobacco type: cigarettes Smoking end date: 05/02/88 Alcohol intake: current Drinks per week: 7 Alcohol use details: BEER/COCKTAILS Substance use: former Substance use type: marijuana Last use: 01/2024 Do You Feel Safe in your Home?: Yes Lack of Transportation: No Lack of Food: Never True Current Housing: I Have Housing Concerned About Future Housing: No Difficulty Paying Gas/Electric Bills: No Difficulty Paying for Meds: No Currently Unemployed: No Education: Trade/Vocational Certificate Difficulty w/ Childcare or Family Care: No Living arrangements: with family Occupation/Education: retired Gender identity (if verbalized by the patient): Male Sexual Orientation (if Verbalized by the Patient): Straight or Heterosexual Spiritual care concerns: No Agree to blood products: Yes <Maggie Jose August, - Last Filed: 08/08/24 18:31> Exam Narrative: GENERAL: Labored breathing / speaking in short 2-3 sentences HEAD: Normocephalic, atraumatic. EYES: PERRLA and EOMI. ENT: Nares clear, no rhinorrhea or epistaxis. Mucous membranes moist. Oropharynx without tonsillar hypertrophy exudate or other lesions. Bilateral TMs pearly desai nonbulging NECK: Supple. No adenopathy or masses. No carotid bruits or JVD CHEST: Labored /inspiratory and expiratory wheezing noted anterior and posterior lung koch HEART: Regular rate and rhythm. No murmur heard. Normal peripheral pulses. ABDOMEN: Soft, nontender, nondistended, normal active bowel sounds. EXTREMITIES: Normal range of motion. No edema. SKIN: Warm, dry, no rash. NEURO: No focal deficits. Alert and oriented x3. PSYCH: Normal mood and affect. <Maggie Jose August, MANAGER LICENSING - Last Filed: 08/08/24 18:31> Course DIRECTOR OF GRADUATE ADMISSIONS/PA Physician Supervision I agree with midlevel documentation; I performed the medical decision making component of this evaluation. I had independent [id number] time with the patient and performed my own independent evaluation and assessment. Patient presented with appears to be a severe COPD exacerbation as he has diffuse wheezing, diminished air entry bilaterally, prolonged expiratory phase and very tachypneic. He is belly breathing with retractions. He is awake and mentating appropriately. Initial treatments regimen with nebulized treatments of albuterol and Atrovent seem to new no good as he was not improving. Baseline VBG and ABG obtained with serial monitoring. Patient did not tolerate BiPAP mask initially as he felt very claustrophobic. He was given a 0.25 milligram/kilogram dose of ketamine as well as a magnesium bolus and placed on BiPAP successfully. VBG obtained shows tachypnea but no significant acidosis. Patient had tired out significantly while being on the BiPAP machine. We went over next steps including endotracheal intubation which the patient and family was agreeable to. I independently intubated the patient at bedside with respiratory therapy assisting. Postprocedural x-ray was reviewed and I appreciate the endotracheal tube above the jose although need slight retraction. Patient has continuous nebulization to the endotracheal tube. I discussed patient's care and clinical exam with the hospitalist currently being covered by the midlevel provider Dayna who was present at bedside for evaluation with me in the room. Cathode Washer was consulted with recommendations for obtaining a CT thorax after intubation and will be admitting him to the ICU. Patient did require additional doses of Versed and fentanyl pushes for sedation post intubation. He is currently on a fentanyl and Versed drip with improvement. Awaiting ICU bed at this time. Please see dictation by MLP for other details of care during this ED encounter. <Daryl Hayes MD - Last Filed: 07/25/24 19:10> Vital Signs Vital signs: Vital Signs Temperature 36.5 C 07/25/24 09:51 Pulse Rate 92 07/25/24 09:51 Respiratory Rate 32 H 07/25/24 09:51 Blood Pressure 141/77 H 07/25/24 09:51 Pulse Oximetry 88 L 07/25/24 09:51 Oxygen Delivery Room Air 07/25/24 09:51 Temperature 36.4 C 08/05/24 08:22 Pulse Rate 90 08/05/24 14:00 Respiratory Rate 18 08/05/24 14:00 Blood Pressure 143/69 H 08/05/24 14:00 Pulse Oximetry 97 08/05/24 14:00 Oxygen Delivery Room Air 08/05/24 08:24 Oxygen Flow Rate 3 08/01/24 23:54 Fraction of Inspired Oxygen 21 08/05/24 08:24 <Maggie Morales, MANAGER LICENSING - Last Filed: 08/08/24 18:31> Vital Signs Temperature 36.5 C 07/25/24 09:51 Pulse Rate 92 07/25/24 09:51 Respiratory Rate 32 H 07/25/24 09:51 Blood Pressure 141/77 H 07/25/24 09:51 Pulse Oximetry 88 L 07/25/24 09:51 Oxygen Delivery Room Air 07/25/24 09:51 Temperature 36.4 C 08/05/24 08:22 Pulse Rate 90 08/05/24 14:00 Respiratory Rate 18 08/05/24 14:00 Blood Pressure 143/69 H 08/05/24 14:00 Pulse Oximetry 97 08/05/24 14:00 Oxygen Delivery Room Air 08/05/24 08:24 Oxygen Flow Rate 3 08/01/24 23:54 Fraction of Inspired Oxygen 21 08/05/24 08:24 <Daryl Hayes MD - Last Filed: 07/25/24 19:10> Procedures Intubation Intubation #1: Intubation Date: 07/25/24 <Daryl Hayes MD - Last Filed: 07/25/24 19:10> Intubation Time: 15:58 <Daryl Hayes MD - Last Filed: 07/25/24 19:10> Time out performed: Yes <Daryl Hayes MD - Last Filed: 07/25/24 19:10> sedative: Ketamine <Daryl Hayes MD - Last Filed: 07/25/24 19:10> Mg Given: 200 <Daryl Hayes MD - Last Filed: 07/25/24 19:10> paralytic: Rocuronium <Daryl Hayes MD - Last Filed: 07/25/24 19:10> Mg Given: 100 <Daryl Hayes MD - Last Filed: 07/25/24 19:10> Laryngoscope: fiber optic video scope <Daryl Hayes MD - Last Filed: 07/25/24 19:10> Assist Device Used: fiber optic device <Daryl Hayes MD - Last Filed: 07/25/24 19:10> Tube Size (cm): 8.0 <Daryl Hayes MD - Last Filed: 07/25/24 19:10> Method of Intubation: orotracheal <Daryl Hayes MD - Last Filed: 07/25/24 19:10> Number of Attempts: 1 <Daryl Hayes MD - Last Filed: 07/25/24 19:10> Tube Secured Depth (cm): 23 <Daryl Hayes MD - Last Filed: 07/25/24 19:10> Tube Secured Location: lips <Daryl Hayes MD - Last Filed: 07/25/24 19:10> Tube Placement Confirmation: visualized tube passing through cords, equal breath sounds bilaterally, no breath sounds over epigastrium and confirmation by capnometry <Daryl Hayes MD - Last Filed: 07/25/24 19:10> Patient Tolerated Procedure: well and no complications <Daryl Hayes MD - Last Filed: 07/25/24 19:10> Intubation Complications: none <Daryl Hayes MD - Last Filed: 07/25/24 19:10> Medical Decision Making MDM Narrative Medical decision making narrative: ED COURSE AND MEDICAL DECISION MAKIN-year-old with acute dyspnea and wheezing likely due to acute COPD exacerbation based on history and exam. Patient states that his PFTs were negative for COPD back in March however my covering attending reviewed his PFT study and it was stated that they were negative because he had just done a breathing treatment. He does have history 2 pack-a-day smoker for 23 years. Patient is hemodynamically stable. Nebulizer treatments are started and steroids given IV Checking a blood gas to evaluate for need for BiPAP CBC-leukocytosis 13.6, hemodynamically stable CMP-anion gap 14 GFR 56 glucose 118 total bilirubin 1.7 alk-phos 173 Troponin 1-less than 0.012- Troponin 2- negative BNP-102- D-dimer-0.28 Chest x-ray-1. No acute cardiopulmonary disease PT PTT INR-unremarkable EKG-sinus rate 94 nonspecific nonspecific T-wave inversions After the hour long DuoNeb treatment patient was re-evaluated and inset of inspiratory and expiratory wheezing he only had expiratory wheezing he still was working heavily to breathe, discussed with him that we should to BiPAP with another hour long treatment. At this time he declines and states he does not want any BiPAP because these done this before and feels like he is suffocating. Offered to give him some medication to help him relax he can do the BiPAP at thoroughly explained to him that this will help him breathe in his medication and to hopefully improve his breathing. He at this time is agreeable and placed on BiPAP for an hour long DuoNeb treatment with 0.5 of Ativan IV. After doing the hour long BiPAP he was taken off the BiPAP and put back on his nasal cannula. It went back to reassess him he and his said that he was worse on the BiPAP and did not want to go back on it but he was still labored to breathe. His lung sounds after the 2nd hour long the BiPAP were noted to be more tight not as much wheezing noted. Dr. Hayes came to the bedside for assessment and recommends magnesium getting back on BiPAP considering intubation another ABG and giving ketamine with the BiPAP. The 2nd time around on the BiPAP was done in the meantime his VBG resulted and his condition has declined. With at the bedside patient and she were updated that he will need to be intubated to protect his breathing as the BiPAP and treatments that we are trying are not improving his breathing. The patient and are agreeable for intubation. Dr. Hayes intubated the patient. Repeat ABG was completed and oxygen at was turned down to either had been at 100%. Patient's case was discussed with the oil dispenser Dr. Guerrier who accepts patient for admission he would like the repeat ABG ordered which on he also wants a CT non-con chest to be done and he will take the patient in the intensive care unit. <Maggie Morales, MANAGER LICENSING - Last Filed: 08/08/24 18:31> Medical Records Medical records reviewed: Yes I reviewed the external patient's medical records. <Maggie Morales, MANAGER LICENSING - Last Filed: 08/08/24 18:31> Vital Signs Vital Signs: Vital Signs Temperature 36.5 C 07/25/24 09:51 Pulse Rate 92 07/25/24 09:51 Respiratory Rate 32 H 07/25/24 09:51 Blood Pressure 141/77 H 07/25/24 09:51 Pulse Oximetry 88 L 07/25/24 09:51 Oxygen Delivery Room Air 07/25/24 09:51 Temperature 36.4 C 08/05/24 08:22 Pulse Rate 90 08/05/24 14:00 Respiratory Rate 18 08/05/24 14:00 Blood Pressure 143/69 H 08/05/24 14:00 Pulse Oximetry 97 08/05/24 14:00 Oxygen Delivery Room Air 08/05/24 08:24 Oxygen Flow Rate 3 08/01/24 23:54 Fraction of Inspired Oxygen 21 08/05/24 08:24 vitals reviewed <Maggie Morales, MANAGER LICENSING - Last Filed: 08/08/24 18:31> Vital Signs Temperature 36.5 C 07/25/24 09:51 Pulse Rate 92 07/25/24 09:51 Respiratory Rate 32 H 07/25/24 09:51 Blood Pressure 141/77 H 07/25/24 09:51 Pulse Oximetry 88 L 07/25/24 09:51 Oxygen Delivery Room Air 07/25/24 09:51 Temperature 36.4 C 08/05/24 08:22 Pulse Rate 90 08/05/24 14:00 Respiratory Rate 18 08/05/24 14:00 Blood Pressure 143/69 H 08/05/24 14:00 Pulse Oximetry 97 08/05/24 14:00 Oxygen Delivery Room Air 08/05/24 08:24 Oxygen Flow Rate 3 08/01/24 23:54 Fraction of Inspired Oxygen 21 08/05/24 08:24 <Daryl Hayes MD - Last Filed: 07/25/24 19:10> Lab Data Lab results reviewed: Yes I reviewed the patient's lab results. <Maggie Morales APRN - Last Filed: 08/08/24 18:31> Result diagrams: 08/05/24 05:41 08/05/24 05:41 <Maggie Morales APRN - Last Filed: 08/08/24 18:31> Labs: Lab Results 07/25/24 07/25/24 07/25/24 Range/Units 09:49 10:05 10:05 WBC 13.6 H (4.5-10.0) K/mm3 RBC 5.46 (4.6-6.20) M/mm3 Hgb 17.2 (14.0-18.0) g/dL Hct 48.4 (42.0-52.0) % MCV 88.6 (80-100) fl MCH 31.5 (26-34) pg MCHC 35.5 (32-36) g/dl RDW 13.4 (11.5-14.5) % Plt Count 310 (150-375) k/mm3 MPV 9.3 (7.4-10.4) fl Immature Gran % (Auto) 0.4 (0-0.5) % Neut % (Auto) 51.1 (45.5-73.1) % Lymph % (Auto) 23.9 (18.3-44.2) % [place] % (Auto) 9.7 H (2.6-8.5) % Eos % (Auto) 13.9 H (0-4.4) % Baso % (Auto) 1.0 (0.2-1.2) % Lymph # (Auto) 3.25 H (0.9-3.2) K/mm3 [place] # (Auto) 1.3 H (0.1-0.6) K/mm3 Eos # (Auto) 1.9 H (0-0.3) K/mm3 Baso # (Auto) 0.1 (0.0-0.1) K/mm3 Abs Immat Gran (auto) 0.05 H (0.00-0.031) K/mm3 Absolute Neuts (auto) 6.9 H (1.3-6.7) K/mm3 Absolute Nucleated RBC 0.000 (0.0-0.012) K/mm3 Nucleated RBC % 0.0 (0.0-0.2) % PT Cancelled 13.4 INR Cancelled APTT D-Dimer (<0.48) ug/mL Expiratory Pressure CMH2O Inspiratory Pressure CMH2O Sodium 138 (137-145) mmol/L Potassium 3.7 (3.4-5.0) mmol/L Chloride 101 (98-107) mmol/L Carbon Dioxide 23 (22-30) mmol/L Anion Gap 14 H (4-12) mmol/L BUN 18 D (9-20) mg/dL Creatinine 1.28 (0.7-1.3) mg/dL Estim Creat Clear Calc 53 ml/min Estimated GFR 56 L (59 - ) Glucose 118 H (65-110) mg/dL Calcium 9.9 (8.4-10.2) mg/dL Total Bilirubin 1.7 H (0.2-1.3) mg/dL AST 34 (17-59) U/L ALT 36 (6-50) U/L Alkaline Phosphatase 173 H (38-126) U/L Troponin I < 0.012 (0.000-0.034) ng/mL NT-Pro-B Natriuret Pep 102 H (19.9-100) pg/mL Total Protein 8.0 (6.3-8.2) g/dL Albumin 4.9 (3.5-5.1) g/dL Triglycerides (<150) mg/dL Procalcitonin ng/mL Influenza A (RT-PCR) (Negative) Influenza B (RT-PCR) (Negative) RSV (RT-PCR) (Negative) SARS-CoV-2 RNA (RT-PCR) (Negative) 07/25/24 07/25/24 07/25/24 Range/Units 10:05 10:05 14:32 WBC (4.5-10.0) K/mm3 RBC (4.6-6.20) M/mm3 Hgb (14.0-18.0) g/dL Hct (42.0-52.0) % MCV (80-100) fl MCH (26-34) pg MCHC (32-36) g/dl RDW (11.5-14.5) % Plt Count (150-375) k/mm3 MPV (7.4-10.4) fl Immature Gran % (Auto) (0-0.5) % Neut % (Auto) (45.5-73.1) % Lymph % (Auto) (18.3-44.2) % [place] % (Auto) (2.6-8.5) % Eos % (Auto) (0-4.4) % Baso % (Auto) (0.2-1.2) % Lymph # (Auto) (0.9-3.2) K/mm3 [place] # (Auto) (0.1-0.6) K/mm3 Eos # (Auto) (0-0.3) K/mm3 Baso # (Auto) (0.0-0.1) K/mm3 Abs Immat Gran (auto) (0.00-0.031) K/mm3 Absolute Neuts (auto) (1.3-6.7) K/mm3 Absolute Nucleated RBC (0.0-0.012) K/mm3 Nucleated RBC % (0.0-0.2) % PT INR 1.0 APTT Cancelled 27.9 D-Dimer 0.28 (<0.48) ug/mL Expiratory Pressure CMH2O Inspiratory Pressure CMH2O Sodium (137-145) mmol/L Potassium (3.4-5.0) mmol/L Chloride (98-107) mmol/L Carbon Dioxide (22-30) mmol/L Anion Gap (4-12) mmol/L BUN (9-20) mg/dL Creatinine (0.7-1.3) mg/dL Estim Creat Clear Calc ml/min Estimated GFR (59 - ) Glucose (65-110) mg/dL Calcium (8.4-10.2) mg/dL Total Bilirubin (0.2-1.3) mg/dL AST (17-59) U/L ALT (6-50) U/L Alkaline Phosphatase (38-126) U/L Troponin I < 0.012 (0.000-0.034) ng/mL NT-Pro-B Natriuret Pep (19.9-100) pg/mL Total Protein (6.3-8.2) g/dL Albumin (3.5-5.1) g/dL Triglycerides 157 H (<150) mg/dL Procalcitonin 0.2 ng/mL Influenza A (RT-PCR) Negative (Negative) Influenza B (RT-PCR) Negative (Negative) RSV (RT-PCR) Negative (Negative) SARS-CoV-2 RNA (RT-PCR) Negative (Negative) 07/25/24 Range/Units 14:43 WBC (4.5-10.0) K/mm3 RBC (4.6-6.20) M/mm3 Hgb (14.0-18.0) g/dL Hct (42.0-52.0) % MCV (80-100) fl MCH (26-34) pg MCHC (32-36) g/dl RDW (11.5-14.5) % Plt Count (150-375) k/mm3 MPV (7.4-10.4) fl Immature Gran % (Auto) (0-0.5) % Neut % (Auto) (45.5-73.1) % Lymph % (Auto) (18.3-44.2) % [place] % (Auto) (2.6-8.5) % Eos % (Auto) (0-4.4) % Baso % (Auto) (0.2-1.2) % Lymph # (Auto) (0.9-3.2) K/mm3 [place] # (Auto) (0.1-0.6) K/mm3 Eos # (Auto) (0-0.3) K/mm3 Baso # (Auto) (0.0-0.1) K/mm3 Abs Immat Gran (auto) (0.00-0.031) K/mm3 Absolute Neuts (auto) (1.3-6.7) K/mm3 Absolute Nucleated RBC (0.0-0.012) K/mm3 Nucleated RBC % (0.0-0.2) % PT INR APTT D-Dimer (<0.48) ug/mL Expiratory Pressure 7 CMH2O Inspiratory Pressure 14 CMH2O Sodium (137-145) mmol/L Potassium (3.4-5.0) mmol/L Chloride (98-107) mmol/L Carbon Dioxide (22-30) mmol/L Anion Gap (4-12) mmol/L BUN (9-20) mg/dL Creatinine (0.7-1.3) mg/dL Estim Creat Clear Calc ml/min Estimated GFR (59 - ) Glucose (65-110) mg/dL Calcium (8.4-10.2) mg/dL Total Bilirubin (0.2-1.3) mg/dL AST (17-59) U/L ALT (6-50) U/L Alkaline Phosphatase (38-126) U/L Troponin I (0.000-0.034) ng/mL NT-Pro-B Natriuret Pep (19.9-100) pg/mL Total Protein (6.3-8.2) g/dL Albumin (3.5-5.1) g/dL Triglycerides (<150) mg/dL Procalcitonin ng/mL Influenza A (RT-PCR) (Negative) Influenza B (RT-PCR) (Negative) RSV (RT-PCR) (Negative) SARS-CoV-2 RNA (RT-PCR) (Negative) <Maggie Morales, MANAGER LICENSING - Last Filed: 08/08/24 18:31> Lab Results 07/25/24 07/25/24 07/25/24 Range/Units 09:49 10:05 10:05 WBC 13.6 H (4.5-10.0) K/mm3 RBC 5.46 (4.6-6.20) M/mm3 Hgb 17.2 (14.0-18.0) g/dL Hct 48.4 (42.0-52.0) % MCV 88.6 (80-100) fl MCH 31.5 (26-34) pg MCHC 35.5 (32-36) g/dl RDW 13.4 (11.5-14.5) % Plt Count 310 (150-375) k/mm3 MPV 9.3 (7.4-10.4) fl Immature Gran % (Auto) 0.4 (0-0.5) % Neut % (Auto) 51.1 (45.5-73.1) % Lymph % (Auto) 23.9 (18.3-44.2) % [place] % (Auto) 9.7 H (2.6-8.5) % Eos % (Auto) 13.9 H (0-4.4) % Baso % (Auto) 1.0 (0.2-1.2) % Lymph # (Auto) 3.25 H (0.9-3.2) K/mm3 [place] # (Auto) 1.3 H (0.1-0.6) K/mm3 Eos # (Auto) 1.9 H (0-0.3) K/mm3 Baso # (Auto) 0.1 (0.0-0.1) K/mm3 Abs Immat Gran (auto) 0.05 H (0.00-0.031) K/mm3 Absolute Neuts (auto) 6.9 H (1.3-6.7) K/mm3 Absolute Nucleated RBC 0.000 (0.0-0.012) K/mm3 Nucleated RBC % 0.0 (0.0-0.2) % PT Cancelled 13.4 INR Cancelled APTT D-Dimer (<0.48) ug/mL Expiratory Pressure CMH2O Inspiratory Pressure CMH2O Sodium 138 (137-145) mmol/L Potassium 3.7 (3.4-5.0) mmol/L Chloride 101 (98-107) mmol/L Carbon Dioxide 23 (22-30) mmol/L Anion Gap 14 H (4-12) mmol/L BUN 18 D (9-20) mg/dL Creatinine 1.28 (0.7-1.3) mg/dL Estim Creat Clear Calc 53 ml/min Estimated GFR 56 L (59 - ) Glucose 118 H (65-110) mg/dL Calcium 9.9 (8.4-10.2) mg/dL Total Bilirubin 1.7 H (0.2-1.3) mg/dL AST 34 (17-59) U/L ALT 36 (6-50) U/L Alkaline Phosphatase 173 H (38-126) U/L Troponin I < 0.012 (0.000-0.034) ng/mL NT-Pro-B Natriuret Pep 102 H (19.9-100) pg/mL Total Protein 8.0 (6.3-8.2) g/dL Albumin 4.9 (3.5-5.1) g/dL Triglycerides (<150) mg/dL Procalcitonin ng/mL Influenza A (RT-PCR) (Negative) Influenza B (RT-PCR) (Negative) RSV (RT-PCR) (Negative) SARS-CoV-2 RNA (RT-PCR) (Negative) 07/25/24 07/25/24 07/25/24 Range/Units 10:05 10:05 14:32 WBC (4.5-10.0) K/mm3 RBC (4.6-6.20) M/mm3 Hgb (14.0-18.0) g/dL Hct (42.0-52.0) % MCV (80-100) fl MCH (26-34) pg MCHC (32-36) g/dl RDW (11.5-14.5) % Plt Count (150-375) k/mm3 MPV (7.4-10.4) fl Immature Gran % (Auto) (0-0.5) % Neut % (Auto) (45.5-73.1) % Lymph % (Auto) (18.3-44.2) % [place] % (Auto) (2.6-8.5) % Eos % (Auto) (0-4.4) % Baso % (Auto) (0.2-1.2) % Lymph # (Auto) (0.9-3.2) K/mm3 [place] # (Auto) (0.1-0.6) K/mm3 Eos # (Auto) (0-0.3) K/mm3 Baso # (Auto) (0.0-0.1) K/mm3 Abs Immat Gran (auto) (0.00-0.031) K/mm3 Absolute Neuts (auto) (1.3-6.7) K/mm3 Absolute Nucleated RBC (0.0-0.012) K/mm3 Nucleated RBC % (0.0-0.2) % PT INR 1.0 APTT Cancelled 27.9 D-Dimer 0.28 (<0.48) ug/mL Expiratory Pressure CMH2O Inspiratory Pressure CMH2O Sodium (137-145) mmol/L Potassium (3.4-5.0) mmol/L Chloride (98-107) mmol/L Carbon Dioxide (22-30) mmol/L Anion Gap (4-12) mmol/L BUN (9-20) mg/dL Creatinine (0.7-1.3) mg/dL Estim Creat Clear Calc ml/min Estimated GFR (59 - ) Glucose (65-110) mg/dL Calcium (8.4-10.2) mg/dL Total Bilirubin (0.2-1.3) mg/dL AST (17-59) U/L ALT (6-50) U/L Alkaline Phosphatase (38-126) U/L Troponin I < 0.012 (0.000-0.034) ng/mL NT-Pro-B Natriuret Pep (19.9-100) pg/mL Total Protein (6.3-8.2) g/dL Albumin (3.5-5.1) g/dL Triglycerides 157 H (<150) mg/dL Procalcitonin 0.2 ng/mL Influenza A (RT-PCR) Negative (Negative) Influenza B (RT-PCR) Negative (Negative) RSV (RT-PCR) Negative (Negative) SARS-CoV-2 RNA (RT-PCR) Negative (Negative) 07/25/24 Range/Units 14:43 WBC (4.5-10.0) K/mm3 RBC (4.6-6.20) M/mm3 Hgb (14.0-18.0) g/dL Hct (42.0-52.0) % MCV (80-100) fl MCH (26-34) pg MCHC (32-36) g/dl RDW (11.5-14.5) % Plt Count (150-375) k/mm3 MPV (7.4-10.4) fl Immature Gran % (Auto) (0-0.5) % Neut % (Auto) (45.5-73.1) % Lymph % (Auto) (18.3-44.2) % [place] % (Auto) (2.6-8.5) % Eos % (Auto) (0-4.4) % Baso % (Auto) (0.2-1.2) % Lymph # (Auto) (0.9-3.2) K/mm3 [place] # (Auto) (0.1-0.6) K/mm3 Eos # (Auto) (0-0.3) K/mm3 Baso # (Auto) (0.0-0.1) K/mm3 Abs Immat Gran (auto) (0.00-0.031) K/mm3 Absolute Neuts (auto) (1.3-6.7) K/mm3 Absolute Nucleated RBC (0.0-0.012) K/mm3 Nucleated RBC % (0.0-0.2) % PT INR APTT D-Dimer (<0.48) ug/mL Expiratory Pressure 7 CMH2O Inspiratory Pressure 14 CMH2O Sodium (137-145) mmol/L Potassium (3.4-5.0) mmol/L Chloride (98-107) mmol/L Carbon Dioxide (22-30) mmol/L Anion Gap (4-12) mmol/L BUN (9-20) mg/dL Creatinine (0.7-1.3) mg/dL Estim Creat Clear Calc ml/min Estimated GFR (59 - ) Glucose (65-110) mg/dL Calcium (8.4-10.2) mg/dL Total Bilirubin (0.2-1.3) mg/dL AST (17-59) U/L ALT (6-50) U/L Alkaline Phosphatase (38-126) U/L Troponin I (0.000-0.034) ng/mL NT-Pro-B Natriuret Pep (19.9-100) pg/mL Total Protein (6.3-8.2) g/dL Albumin (3.5-5.1) g/dL Triglycerides (<150) mg/dL Procalcitonin ng/mL Influenza A (RT-PCR) (Negative) Influenza B (RT-PCR) (Negative) RSV (RT-PCR) (Negative) SARS-CoV-2 RNA (RT-PCR) (Negative) <Daryl Hayes MD - Last Filed: 07/25/24 19:10> ABG Data ABG results: 07/25/24 07/25/24 10:25 14:43 Puncture Site Left radial ABG pH 7.441 ABG pCO2 30.6 L ABG pO2 68.7 L ABG PO2/FiO2 Ratio 2.45 ABG HCO3 20.4 L ABG O2 Saturation 94.6 L ABG O2 Content 22.8 H ABG Base Excess -2.3 VBG pH 7.374 VBG pCO2 33.5 L VBG pO2 92.8 H VBG HCO3 19.1 L A-a Gradient 94.8 Oxyhemoglobin 93.4 Total Hemoglobin 17.4 O2 Delivery Device Nasal cannula Non-invasive vent O2 Liters/Min 2.0 Not Reportable Vent Rate 12 FiO2 28 50 <Maggie Morales MANAGER [employer]ICENSING - Last Filed: 08/08/24 18:31> 07/25/24 07/25/24 10:25 14:43 Puncture Site Left radial ABG pH 7.441 ABG pCO2 30.6 L ABG pO2 68.7 L ABG PO2/FiO2 Ratio 2.45 ABG HCO3 20.4 L ABG O2 Saturation 94.6 L ABG O2 Content 22.8 H ABG Base Excess -2.3 VBG pH 7.374 VBG pCO2 33.5 L VBG pO2 92.8 H VBG HCO3 19.1 L A-a Gradient 94.8 Oxyhemoglobin 93.4 Total Hemoglobin 17.4 O2 Delivery Device Nasal cannula Non-invasive vent O2 Liters/Min 2.0 Not Reportable Vent Rate 12 FiO2 28 50 <Daryl Hayes MD - Last Filed: 07/25/24 19:10> ECG Data EKG #1: ECG completion date: 07/25/24 <Maggie Morales MANAGER [employer]ING - Last Filed: 08/08/24 18:31> ECG completion time: 09:44 <Maggie Morales MANAGER [employer]ING - Last Filed: 08/08/24 18:31> Prior ECG tracings: available for review <Maggie Morales MANAGER [employer]ING - Last Filed: 08/08/24 18:31> Interpretation: Rate 94 IA 155 QRSd 94 QT 355 QTc 446 --[facility]-- P 69 QRS 75 T 66 SINUS RHYTHM NONSPECIFIC T-WAVE ABNORMALITY Compared to ECG 04/01/2024 18:17:51 T-wave abnormality now present Sinus tachycardia no longer present <Maggie Morales MANAGER [employer]ING - Last Filed: 08/08/24 18:31> Critical Care Time Critical Care Time Critical Care Time: Yes <Daryl Hayes MD - Last Filed: 07/25/24 19:10> Total Critical Care Time: 105 (Critical care time is exclusive of the separately billed procedures above and includes frequent re-evaluations, management of hypoxic and hypercapnic respiratory failure, COPD exacerbation, vent management, titration of vent settings to ABG results, interpreting results and talking to consultants) <Daryl Hayes MD - Last Filed: 07/25/24 19:10> Discharge Plan Discharge Clinical Impression: COPD exacerbation, Respiratory failure requiring intubation <Maggie Morales APRN - Last Filed: 08/08/24 18:31> Patient Disposition: Still a Patient <Maggie Morales APRN - Last Filed: 08/08/24 18:31> Condition: Critical <Maggie Morales APRN - Last Filed: 08/08/24 18:31> Time of Disposition: 19:09 <Maggie Morales APRN - Last Filed: 08/08/24 18:31> 19:09 <Daryl Hayes MD - Last Filed: 07/25/24 19:10>
[2024-07-25 09:55] LABS: Basophils Absolute Auto 0.1 K/mm3 (0.0-0.1); Eosinophils Absolute Auto 1.9 K/mm3 (0-0.3); Eosinophils Percent Auto 13.9 % (0-4.4); Hematocrit 48.4 % (42.0-52.0); Hemoglobin 17.2 g/dL (14.0-18.0); Immature Granulocyte Absolute 0.05 K/mm3 (0.00-0.031); Immature Granulocyte Percent A 0.4 % (0-0.5); Lymphocytes Absolute Auto 3.25 K/mm3 (0.9-3.2); Lymphocytes Percent Auto 23.9 % (18.3-44.2); Mean Corpuscular HGB Conc 35.5 g/dl (32-36); Mean Corpuscular Hemoglobin 31.5 pg (26-34); Mean Corpuscular Volume 88.6 fl (80-100); Mean Platelet Volume 9.3 fl (7.4-10.4); Monocytes Absolute Auto 1.3 K/mm3 (0.1-0.6); Monocytes Percent Auto 9.7 % (2.6-8.5); Neutrophils Absolute Auto 6.9 K/mm3 (1.3-6.7); Neutrophils Percent Auto 51.1 % (45.5-73.1); Platelet Count Result 310 k/mm3 (150-375); Red Blood Count 5.46 M/mm3 (4.6-6.20); Red Cell Distribution Width 13.4 % (11.5-14.5); White Blood Count 13.6 K/mm3 (4.5-10.0)
[2024-07-25] MEDS: dexAMETHasone SOD PHOS INJ 10 MG/ML 1 ML VIAL IV PUSH (10:04)
[2024-07-25 10:05] LABS: Alanine Aminotransferase 36 U/L (6-50); Albumin Level 4.9 g/dL (3.5-5.1); Alkaline Phosphatase 173 U/L (38-126); Anion Gap 14 mmol/L (4-12); Aspartate Amino Transferase 34 U/L (17-59); Bilirubin,Total 1.7 mg/dL (0.2-1.3); Blood Urea Nitrogen 18 mg/dL (9-20); Calcium 9.9 mg/dL (8.4-10.2); Carbon Dioxide 23 mmol/L (22-30); Chloride 101 mmol/L (98-107); Estimated CRCL calculation 53 ml/min; Estimated Glomerular Filt Rate 56; Glucose 118 mg/dL (65-110); Potassium 3.7 mmol/L (3.4-5.0); Sodium 138 mmol/L (137-145)
[2024-07-25 10:16] LABS: NT Pro B Type Natriuretic Pept 102 pg/mL (19.9-100); Troponin I < 0.012 ng/mL (0.000-0.034)
[2024-07-25] MEDS: IPRATROPIUM BR 0.02% INH SOLN 0.5 MG/2.5 ML VIAL 1 MG INHALATION ×3 (10:17→16:58)
[2024-07-25] MEDS: ALBUTEROL SULFATE NEB 2.5 MG/3 ML INH 10 MG INHALATION ×3 (10:17→16:58)
--- OUTSIDE RECORDS SUMMARY | 2024-07-25 10:24 | XMS_ITS | Encounter Summary ---
Author Organization [facility] Address [address] [place] [address] Phone Care Team Providers Care Disability Hearing Officer Name Role Phone No, Physician Primary Care Provider [phone] Encounter Details Date Type Department Care Team (Late st Contact Info) Description 07/24/2024 Orders Only [facility] Scheduling [address] [place] [address] Suleiman Antoine MD [address] [place] [address] Chronic obstructive pulmonary disease with (acute) exacerbation (HCC) (Primary Dx) Social History Tobacco Use Types Packs/Day Years Used Date Smoking Tobacco: Former Cigarettes Q uit: 1987 [facility] Utilities Answer Date Recorded In the past 12 months has [employer], gas, oil, or water company threatened to shut off services in your home? No 06/04/2024 Social Connection and Isolat ion Panel [NHANES] Answer Date Recorded In a typical week, how many times do you talk on the phone with family, friends, or neighbors? More than three times a week 06/04/2024 How often do you get togethe r with friends or relatives? Three times a week 06/04/2024 How often do you attend chur ch or jehovah's witness services? Never 06/04/2024 Do you belong to any clubs o r organizations such as jehovah's witness groups, unions, fraternal or athletic groups, or school groups? No 06/04/2024 How often do you attend meet ings of the clubs or organizations you belong to? Never 06/04/2024 Are you , , di vorced, , never , or living with a partner? 06/04/2024 Overall Financial Resource Strain (CARDIA) Answe r Date Recorded How hard is it for you to pa y for the very basics like food, housing, medical care, and heating? Not hard at all 06/04/2024 Hunger Vital Sign Answer Date Recorded Within the past 12 months, y ou worried that your food would run out before you got the money to buy more. Never true 06/04/19 25 Within the past 12 months, t he food you bought just didn't last and you didn't have money to get more. Never true 06/04/2024 PRAPARE - Transportation Answer Date Re corded In the past 12 months, has l ack of transportation kept you from medical appointments or from getting medications? No 06/2024 In the past 12 months, has l ack of transportation kept you from meetings, work, or from getting things needed for daily living? No 06/04/2024 Housing Stability Vital Sign Answer Freddy e Recorded In the last 12 months, was t here a time when you were not able to pay the mortgage or rent on time? No 06/04/2024 In the past 12 months, how m any times have you moved where you were living? 0 06/04/2024 At any time in the past 12 m [facility], were you homeless or living in a correction (including now)? No 06/04/2024 Personal Safety Answer Date Recorded Have you ever been in or are you currently in a harmful physical or emotional relationship or is someone making you feel afraid or unsafe? Denies 05/29/2024 Sex and Gender Information Value Date Recorded Sex Assigned at Not on file Legal Sex Male 11:19 AM [employer] Gender Identity Not on file Sexual Orientation Not on file documented as of this encounter Plan of Treatment Scheduled Orders Name Type Priority Associated Diagnoses Orde r Schedule XR Chest Pa Lateral 2 Views Imaging Schedule Routine, Read Routine (OP Routine) Chronic obstructive pulmonary disease with (acute) exacerbation (HCC) Expected: 07/24/2024, Expires: 07/24/2025 documented as of this encounter Visit Diagnoses Diagnosis Chronic obstructive pulmonary disease with (acute) exacerbation (HCC)- Primary documented in this encounter Care Teams Disability Hearing Officer Relationship Specialty Start Date End Date No, Physician PCP - General 05/29/24 documented as of this encounter
--- OUTSIDE RECORDS SUMMARY | 2024-07-25 10:24 | XMS_ITS ---
Author Organization [facility] Address [address] [place] [address] Care Team Providers Care Supervisor Cell Room Name Role Phone Dr. Dilip Alfonso Primary Care Provider Negrita Duque Unavailable [phone] Allergies Allergen (clinical drug ingredient) Drug/Non Drug Allergy documented on EMR Reaction Allergy Type Onset Date Status Sudafed Unknown Drug Allergy Active REASON FOR VISIT Daily welts, provoked by scratching for over a year. Doing well on new medication regimen., Chroniclower airways symptoms - former smoker - with hospitalization in [place] in 01/2024. On Trelegy and albuterol.. Recently hospitalized for respiratory failure in early Apr- followed by Dr. Brock-, Hospi talized from 05/31-06/05 Medications Medication SIG (Take, Route, Frequency, Duration) Notes Start Date End Date Status Montelukast Sodium 10 MG 1 tablet Orally at night for 30 days Active amLODIPine Besylate 10 MG Oral for 90 Days Active Albuterol Sulfate HFA 108 (90 Base) MCG/ACT Inhalation for 16 Days Active predniSONE 20 MG 3 tablet Orally Once a day for 5 days 06/14/2024 Active Montelukast Sodium 10 MG TAKE 1 TABLET BY MOUTH AT NIGHT for 90 Active Lisinopril 40 MG 1 tablet Orally Once a day Not-Taking Omeprazole 20 MG 1 capsule 1/2 to 1 hour before morning meal Orally Once a day Active Cetirizine HCl 10 MG 1 tablet Orally Twice a day for 30 days Active Atorvastatin Calcium 20 MG 1 tablet Orally Once a day Active Famotidine 40 MG 1 tablet Orally Twice a day for 30 days Active Trelegy Ellipta 100-62.5-25 MCG/ACT INHALE 1 PUFF BY MOUTH DAILY Inhalation Active Albuterol Sulfate (2.5 MG/3ML) 0.083% 3 mL as needed Inhalation every 4-6 hrs for 14 days 50 ampules of 3 mL (aka 2 boxes) 06/14/2024 Active Famotidine 40 MG TAKE 1 TABLET BY MOUTH TWICE DAILY for 90 Active Cetirizine HCl 10 MG Take 1 tablet by mouth twice daily for 90 days Active Social History Tobacco Use: Social History Observation Description Date Details (start date - stop date) Former Smoker NA - NA Tobacco Control (Standard) Question Answer Notes Tobacco use: Former smoker Vital Signs Blood pressure systolic 154 mm Hg 06/14/19 25 Blood pressure diastolic 74 mm Hg 025 Respiratory Rate 17 /min 06/14/2024 Height 71 in 06/14/2024 Weight 201.8 lbs 06/14/2024 BMI 28.14 kg/m2 06/14/2024 Oximetry 95 % 06/14/2024 Encounters Encounter Location Date Provider Diagnosis [facility] [address] [place] [address] 06/14/2024 Negrita Reza Other urticaria L50. 8 ; Hypertrophy of nasal turbinates J34.3 ; Chronic cough R05.3 and Wheezing R06.2 Assessments Encounter Date Diagnosis (ICD Code) Assessment Notes Treatment Notes Treatment Clinical Notes Section Notes 06/14/2024 Other urticaria (ICD-10 - L50.8) Dominic was seen back in March. From his description of symptoms he has been having hives for about a year. However he has no picture and did not have any lesions at his appt. -I empirically treated him with high dose anthistamines and LTRA and hives have resolved. He is very pleased -Labs for mast cell, autoimmune, and thyroid conditions showed elevated tryptase of 29. No hx of anaphylaxis. Recheck tryptase with Ckit mutation was done last month - ckit negative. Tryptase elevated. Consider testing for hereditary alpha-tryptessemi a and evaluation by hematology. He is currently stable and is getting work up for his breathing issues -Also discussed Xolair, approved for CSU, if refractory to treatment - currently stable -He is a daily drinker, needs to see PCP to work on reduction of alcohol as this can worsen hives. Recommend avoiding NSAIDs if possible 06/14/2024 Hypertrophy of nasal turbinates (ICD-10 - J34.3) Mild upper airway symptoms. XrB=787 QOR=937 likely atopic -check allegy labs as she is on high dose anthistamines - was not obtained last visit, he wants to see if pulmonary obtains. If not will reorder in 06/14/2024 Chronic cough (ICD-10 - R05.3) Recently established with Dr. Brock. Does not want to duplicate breathing tests.Hospitalize d again in April and May. This last time for parainfluenza. He is wheezing on exam -slated to see [facility] pulmonary and Dr. Brock. Recommend steroids and breathing test but declined the latter as he is going to have a PFT shortly -DwR=260 NYU=938 likely has atopic asthma. Will request pulmonary records and breathing test. Highly recommend biologic but at this point I cannot diagnosis asthma as he is focused on hives management here. Ideally today would be a good time to obtain a spirometry -start 5 days of steroids and refill albuterol -Continue trelegy and albuterol. 06/14/2024 Wheezing (ICD-10 - R06.2) See plan above 06/14/2024 Other Plan Of Treatment Medication Medication Name Sig Start Date Stop Date Notes Montelukast Sodium 10 MG 1 tablet Orally at night for 30 days predniSONE 20 MG 3 tablet Orally Once a day for 5 days 06/14/2024 Cetirizine HCl 10 MG 1 tablet Orally Twi ce a day for 30 days Famotidine 40 MG 1 tablet Orally Twic e a day for 30 days Trelegy Ellipta 100-62.5-25 MCG/ACT INHALE 1 PUFF BY MOUTH DAILY Inhalation Albuterol Sulfate (2.5 MG/3ML) 0.083% 3 mL as needed Inhalation every 4-6 hrs for 14 days 06/14/2024 50 ampules of 3 mL (aka 2 boxes) Treatment Notes Assessment Notes Other urticaria Dominic was seen back in March. From his description of symptoms he has been having hives for about a year. However he has no picture and did not have any lesions at his appt. -I empirically treated him with high dose anthistamines and LTRA and hives have resolved. He is very pleased -Labs for mast cell, autoimmune, and thyroid conditions showed elevated tryptase of 29. No hx of anaphylaxis. Recheck tryptase with Ckit mutation was done last month - ckit negative. Tryptase elevated. Consider testing for hereditary alpha-tryptessemia and evaluation by hematology. He is currently stable and is getting work up for his breathing issues -Also discussed Xolair, approved for CSU, if refractory to treatment - currently stable -He is a daily drinker, needs to see PCP to work on reduction of alcohol as this can worsen hives. Recommend avoiding NSAIDs if possible Hypertrophy of nasal turbinates Mild upper airway symptoms. VbZ=401 DYQ=492 likely atopic -check allegy labs as she is on high dose anthistamines - was not obtained last visit, he wants to see if pulmonary obtains. If not will reorder in July Chronic cough Recently established with Dr. Brock. Does not want to duplicate breathing tests.Hospitalized again in April and May. This last time for parainfluenza. He is wheezing on exam -slated to see [facility] pulmonary and Dr. Brock. Recommend steroids and breathing test but declined the latter as he is going to have a PFT shortly -GpD=705 XML=733 likely has atopic asthma. Will request pulmonary records and breathing test. Highly recommend biologic but at this point I cannot diagnosis asthma as he is focused on hives management here. Ideally today would be a good time to obtain a spirometry -start 5 days of steroids and refill albuterol -Continue trelegy and albuterol. Wheezing See plan above Next Appt Details Follow Up: July, Reason: Ev aluation and Management Provider Name:Negrita Cobb , 08/16/2024 03:30:00 PM, [address] [facility], [address], [place], [address], Progress Notes * Jeferson COMERDOB: [birth year] (68 yo M)Acc No.[id number]:06/14/2024 Progress Notes Patient: Jeferson US Provider: Britton Cobb PA-C :1955 A ge:68 Y S ex:Male Date:06/14/2024 Address: [address], [id number] Pcp:Dr. Dilip Alfonso Subjective: * Chief Complaints: * D aily welts, provoked by scratching for over a year. Doing well on new medication regimen.Chronic lower airways symptoms - former smoker - with hospitalization in [place] in 01/2024. On Trelegy and albuterol.. Recently hospitalized for respiratory failure in early Apr- followed by Dr. Brock-Hospitalized from 05/31-06/05 * HPI: * Introduction: I had the pleasure of seeing Shireen Comer a 68 year-old WM with a history of HTN, HLD, GERD, and presumed COPD here today for evaluation. Here in consultation with Dr. Alfonso. Seen last in March for d aily intermittent hives for over a year. He doesnt recall specifics when they first started. Does note raised pruritus welts lasting hours provoked by scratching and pressure. Cold rags help as well as hydrocortisone. He has no pictures or lesions today. He also tried Zyrtec 10 mg but after a month switched to Claritin. No urgent care evaluation or oral steroids for this issue. He takes Tylenol #3 < 20 times a year. He is a daily drinker, consuming 3-4 beers a day. No history of angioedema. I put him on Zyrtec BID Pepcid BID and Singulair QD and he has not have any interval hives. He is very pleased. Has not changed his drinking. His CSU work-up showed elevated tryptase of 29. Sent back for recheck with c-kit but has yet to obtain as he was hospitalized for respiatory failure. He states he was told he does not have COPD. He is now being followed by Dr. Brock. Wants an allergy test to r/o allergic asthma. He is no longer wheezing. He has chronic dyspnea which has improved. Was on nebs 3x a day now once. Shireen ramos is a former smoker x16 years. Average 2 ppd - quit in 1988. He now seasonal chronic cough, intermittent wheezing, and dyspnea this past year. Hospitalized for hypoxia and COPD exacerbation while on vacation to [place] in 01/2024. 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 . He denies a history of physician-diagnosed allergic rhinitis, recurrent sinusitis or otitis media, recurrent pneumonia, asthma/RAD, eczema, food allergies, urticaria/angioedema, medication allergies, contact dermatitis, latex allergy, eosinophilic esophagitis or stinging insect hypersensitivity. He has never undergone allergy skin testing or received allergy immunotherapy. Today, she reports no fevers, chills, night sweats or other constitutional symptoms. * ROS: A LLERGY: Positive p er the HPI and history, otherwise unremarkable.?scratchy throat Y es. i tchy eyes N o. e ar fullness N o. s inus congestion N o. S PECIAL SENSES: Positve for n one. c ataracts N o. g laucoma?No. i tching in ears N o. d ry eyes N o. e xcessive tearing N o. i tching eyes N o. c onjunctivitis Y es. e ar infections N o. C ONSTITUTIONAL: weight gain N o. l oss of appetite N o. f ever?No. w eakness Y es. w eight loss N o. f atigue Y es. n ight sweats?No. P ositive for n one. E NT: cold N o. c ough Y es. e pistaxis N o. h earing loss N o. c hange in voice N o. s ore throat Y es. r inging in ears?Yes. s inus pain N o. P ositive p er the HPI and history, otherwise unremarkable. R ESPIRATORY: shortness of breath Y es. c hest pain Y es. c hest congestion Y es. c ough Y es. P ositive p er the HPI and history, otherwise unremakable. O PHTHALMOLOGY: diminished vision N o. e ye irritation N o. d rainage from eyes N o. b lurring of vision N o. s easonal eye sx N o. P ositive for p er the HPI and history, otherwise unremarkable. i tching N o. s ensitivity to light N o. d ischarge N o. w atering N o. s welling of the eyelids N o. r edness N o. E NDOCRINOLOGY: fatigue Y es. p olydipsia N o. p olyuria Y es. w eight loss N o. s leep disturbance Y es. c old intolerance N o. h eat intolerance N o. d iabetes N o. P ositive for n one. C ARDIOLOGY: chest pain Y es. p alpitations Y es. l eg edema?No. d izziness Y es. s hortness of breath Y es. P ositive for n one.? G ASTROENTEROLOGY: dysphagia N o. a bdominal pain N o. n ausea?No. v omiting N o. c onstipation N o. d iarrhea Y es. b lood in stool?No. i ndigestion N o. h emorrhoids Y es. P ositive for n one. ? U ROLOGY: difficulty urinating N o. b lood in urine N o. f requent urination Y es. u rinary incontinence N o. r ecurrent UTI N o. P ositive for n one. D ERMATOLOGY: rash Y es. m ole N o. l umps N o. d ry or sensitive skin N o. h eddie (urticaria) Y es. a cne N o. s kin cancer N o. P ositive for p er the HPI and history, otherwise unremakable. N EUROLOGY: headache N o. t ingling numbness N o. s eizures?No. i nsomnia N o. m ronaldo loss N o. d izziness Y es. g ait abnormality Y es. P ositive for n one. H EMATOLOGY/LYMPH: Positive for n one. M USCULOSKELETAL: joint swelling N o. j oint pain Y es. l eg cramps N o. j oint stiffness Y es. s ciatica N o. o steoporosis N o. f racture Y es. c arpal tunnel N o. g out N o. P ositive for n one. ? P SYCHOLOGY: high stress level N o. d epression N o. s leep disturbances Y es. s uicidal ideation N o. e ating disorder N o. m ental or physical abuse N o. a nxiety N o. P ositive for n one. M CAROLE REPRODUCTIVE: difficulty with erection N o. d iminished sexual drive?No. p enile discharge N o. i nfertility N o. A ll other review of systems per the HPI and history, otherwise unremarkable. * Medical History: * Surgical History: k nee replacement 2021 * Hospitalization/Major Diagno stic Procedure: c hronic cough 01/2024Oxygen levels reathing difficulties 05/2024 * Family History: F ather: No. M other: No. P aternal Grand Father: No. P aternal Grand Mother: No.?Maternal Grand Father: No. M aternal Grand Mother: No. S iblings: Yes. C hildren: Yes. There is no other family history of cancer, CF, diabetes, emphysema or heart disease . * Social History: M arital Status What is your marital status? m arried A lcohol Screening Do you ever drink alcoholic beverages? Y es Number of drinks per occasion: 3 Frequency? D aily S moking Have you ever smoked tobacco: f ormer smoker Additional Findings: Tobacco User H eavy cigarette smoker (20-39 cigs/day) Additional Findings: Tobacco Non-User E x-light cigarette smoker (1-9/day) How old were you when you started smoking? 1 6 How old were you when you quit smoking? 3 3 How many cigarettes a day did you smoke? 3 1 to 40 Are you a : f ormer smoker R ecreational drug use Have you ever used recreational drugs? Y es What kind of drugs? m arijuana,cocaine D etails on consumption of certain products? Do you regularly consume products with aspartame; Equal or NutraSweet? N o Do you regularly consume products with artificial coloring??No Have you ever noticed worsening of your rash with these food items? N o E xercise What kind(s) of exercise do you perform regularly? b iking How often do you perform this exercise? w eekly A re any of the following personal care products containing fragrance, dye or preservatives used regularly? Shampoo: Y es Conditioner: Y es Soap: Y es Laundry Detergent: Y es Fabric Softener: N o Deodorant: N o Air freshners or other scented products: N o Hair coloring dyes or rinses: N o O ccupation Are you currenly employed? 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 Y es Are you currently a student? N o E nvironmental History Living environment: p rivate home,with relatives Where is the home located? [place] Age of home: 1 20 How long have you lived there? 5 years or more How many people live in the home? 2 H ome description Basement: Y es Any water damage in basement? N o Smokers in the home? N o Air Conditioning? Y es Central Air? Y es Forced air heating? Y es Gas or electric? g as Fireplace? N o Wood burning stove? N o Do you vacuum the home? Y es Air purification systems? N o Pillow and mattress dust-proof encasings? N o Do you use a humidifier? N o Do you own any pets? N o Fabric softeners used? N o Plants in the home? Y es How many? 2 0 Where are they kept? o ther room in home Is there carpeting in your bedroom? Y es Age of carpet? 1 0 Do you have [id number]-vc-hmlt carpeting? Y es What is the age of your carpeting? 1 0 What is the age of your mattress (years)? 1 0 What material(s) are used to manufacture your bedding and pillow? s ynthetic What is the age of your pillow (years)? 2 What material are your bedding items made of? s ynthetic Do you sleep with quilts or blankets or a duvet? Y es What material? n atural fiber (e.g. cotton) T obacco Control (Standard) Tobacco use: F ormer smoker * Medications: T akingOmeprazole 20 MG Capsule Delayed Release 1 capsule 1/2 to 1 hour before morning meal Orally Once a day Atorvastatin Calcium 20 MG Tablet 1 tablet Orally Once a day amLODIPine Besylate 10 MG Tablet Oral Albuterol Sulfate HFA 108 (90 Base) MCG/ACT Aerosol Solution Inhalation Trelegy Ellipta 100-62.5-25 MCG/ACT Aerosol Powder Breath Activated INHALE 1 PUFF BY MOUTH DAILY Inhalation Montelukast Sodium 10 MG Tablet TAKE 1 TABLET BY MOUTH AT NIGHT Famotidine 40 MG Tablet TAKE 1 TABLET BY MOUTH TWICE DAILY Cetirizine HCl 10 MG Tablet Take 1 tablet by mouth twice daily Taking Omeprazole 20 MG Capsule Delayed Release 1 capsule 1/2 to 1 hour before morning meal Orally Once a day Taking Atorvastatin Calcium 20 MG Tablet 1 tablet Orally Once a day Taking amLODIPine Besylate 10 MG Tablet Oral Taking Albuterol Sulfate HFA 108 (90 Base) MCG/ACT Aerosol Solution Inhalation Taking Trelegy Ellipta 100-62.5-25 MCG/ACT Aerosol Powder Breath Activated INHALE 1 PUFF BY MOUTH DAILY Inhalation Taking Montelukast Sodium 10 MG Tablet TAKE 1 TABLET BY MOUTH AT NIGHT Taking Famotidine 40 MG Tablet TAKE 1 TABLET BY MOUTH TWICE DAILY Taking Cetirizine HCl 10 MG Tablet Take 1 tablet by mouth twice daily Not-Taking/PRNFamotidine 40 MG Tablet 1 tablet Orally Twice a day Montelukast Sodium 10 MG Tablet 1 tablet Orally at night Lisinopril 40 MG Tablet 1 tablet Orally Once a day Medication List reviewed and reconciled with the patientNot-Taking/PRN Famotidine 40 MG Tablet 1 tablet Orally Twice a day Not-Taking/PRN Montelukast Sodium 10 MG Tablet 1 tablet Orally at night Not-Taking/PRN Lisinopril 40 MG Tablet 1 tablet Orally Once a day Medication List reviewed and reconciled with the patient * Allergies: S paul[Allergies Verified] Objective: * Vitals: B P:154/74mm Hg, HR:102/min, RR:17/min, Pulse Oximetry:95%, ACT:7, CU-Q2oL: 23, UAS7: 0, Ht: 71 in, Wt: 201.8 lbs, BMI:28.14Index. * Examination: G eneral examination: General appearance: p leasant, well-developed, well-nourished. HEENT: p upils equal, round, and reactive to light and accommodation, conjunctiva are clear bilaterally, no tenderness to palpation of the sinuses, TM's without evidence of acute infection, turbinates 1+ no polyps noted, no septal perforation, posterior oropharynx is erythematous and cobblestoning is present, erythema on pharyngeal wall, no exudates, no tongue swelling, and uvula is midline. Oral cavity: n ormal, no lesions. Neck, thyroid : s upple, non-tender, no anterior cervical lymphadenopathy. Heart: R RR, S1-S2, no murmurs, no rubs, no gallops. Lungs: b ilateral wheezes. Neurologic exam: u nremarkable. Skin: n ormal, no rash, dermatographism, urticaria, angioedema. Peripheral pulses: n ormal (2+) bilaterally. Back: n ormal. Extremities: n ormal ROM, no clubbing, no cyanosis, no edema. Assessment: * Assessment: 1. O ther urticaria - L50.8 (Primary) 2 . H ypertrophy of nasal turbinates - J34.3 3 . C hronic cough - R05.3 4 . W heezing - R06.2? Plan: * Treatment: 2. H ypertrophy of nasal turbinates Notes: Mild upper airway symptoms. MxG=122 UTF=336 likely atopic -check allegy labs as she is on high dose anthistamines - was not obtained last visit, he wants to see if pulmonary obtains. If not will reorder in July 3. C hronic cough Notes: Recently established with Dr. Brock. Does not want to duplicate breathing tests.Hospitalized again in April and May. This last time for parainfluenza. He is wheezing on exam -slated to see [facility] pulmonary and Dr. Brock. Recommend steroids and breathing test but declined the latter as he is going to have a PFT shortly -DoI=929 NKX=556 likely has atopic asthma. Will request pulmonary records and breathing test. Highly recommend biologic but at this point I cannot diagnosis asthma as he is focused on hives management here. Ideally today would be a good time to obtain a spirometry -start 5 days of steroids and refill albuterol -Continue trelegy and albuterol. 4. W heezing Start predniSONE Tablet, 20 MG, 3 tablet, Orally, Once a day, 5 days, 15 Tablet, Refills 0; S tart Albuterol Sulfate Nebulization Solution, (2.5 MG/3ML) 0.083%, 3 mL as needed, Inhalation, every 4-6 hrs, 14 days, 50, Refills 1, Notes to Pharmacist: 50 ampules of 3 mL (aka 2 boxes); C ontinue Trelegy Ellipta Aerosol Powder Breath Activated, 100-62.5-25 MCG/ACT, INHALE 1 PUFF BY MOUTH DAILY, Inhalation. Notes: See plan above * Procedure Codes: 9 6160 PT-FOCUSED HLTH RISK [id number] DOC MEDS VERIFIED W/PT OR RE * Preventive Medicine: Counseling: M edication instruction: W atc for side effects of prescribed medications. E ducation: H EDDIE EDUCATION:, Avoid opioid-containing analgesics, Avoid excessive alcohol use, Avoid NSAIDs (non-steroidal anti-inflammatories) - list provided. P atient education material sent to portal? Y es * Follow Up: A pril (Reason: Evaluation and Management) * Billing Information: * Visit Code: 95980 Office Visit, Est Pt., Level 4. Modifiers: 25 * Procedure Codes: 38250 PT-FOCUSED HLTH RISK ASSMT. G8427 DOC MEDS VERIFIED W/PT OR RE. * FORGER HELPER Sign off status: Completed true * Provider: Britton Cobb PA-C Date: 0 06/14/2024 Generated for Jyotsna negrete/Aron/Wayneitting on: 0 07/25/2024 10:24 AM CDT History and Physical Notes * HPI (History of Present Illness) Category Sub-Category Detail Notes Category Not es *Introduction I had the pleasure o f seeing Jeferson Comer a 68 year-old WM with a history of HTN, HLD, GERD, and presumed COPD here today for evaluation. Here in consultation with Dr. Alfonso. Seen last in March for daily intermittent hives for over a year. He doesnt recall specifics when they first started. Does note raised pruritus welts lasting hours provoked by scratching and pressure. Cold rags help as well as hydrocortisone. He has no pictures or lesions today. He also tried Zyrtec 10 mg but after a month switched to Claritin. No urgent care evaluation or oral steroids for this issue. He takes Tylenol #3 < 20 times a year. He is a daily drinker, consuming 3-4 beers a day. No history of angioedema. I put him on Zyrtec BID Pepcid BID and Singulair QD and he has not have any interval hives. He is very pleased. Has not changed his drinking. His CSU work-up showed elevated tryptase of 29. Sent back for recheck with c-kit but has yet to obtain as he was hospitalized for respiatory failure. He states he was told he does not have COPD. He is now being followed by Dr. Brock. Wants an allergy test to r/o allergic asthma. He is no longer wheezing. He has chronic dyspnea which has improved. Was on nebs 3x a day now once. Dominic is a former smoker x16 years. Average 2 ppd - quit in 1988. He now seasonal chronic cough, intermittent wheezing, and dyspnea this past year. Hospitalized for hypoxia and COPD exacerbation while on vacation to [place] in 01/2024. 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 . He denies a history of physician-diagnosed allergic rhinitis, recurrent sinusitis or otitis media, recurrent pneumonia, asthma/RAD, eczema, food allergies, urticaria/angioedema, medication allergies, contact dermatitis, latex allergy, eosinophilic esophagitis or stinging insect hypersensitivity. He has never undergone allergy skin testing or received allergy immunotherapy. Today, she reports no fevers, chills, night sweats or other constitutional symptoms Examination Category Sub-Category Detail Notes Category Not es General examination HEENT: pupils equal , round, and reactive to light and accommodation, conjunctiva are clear bilaterally, no tenderness to palpation of the sinuses, TM's without evidence of acute infection, turbinates 1+ no polyps noted, no septal perforation, posterior oropharynx is erythematous and cobblestoning is present, erythema on pharyngeal wall, no exudates, no tongue swelling, and uvula is midline Neck, thyroid : supple, non-tender, no anterior cervical lymphadenopathy Heart: RRR, S1-S2, no murmu rs, no rubs, no gallops Lungs: bilateral wheezes Extremities: normal ROM, no clubb ing, no cyanosis, no edema General appearance: pleasant, well-devel oped, well-nourished Skin: normal, no rash, meir matographism, urticaria, angioedema Neurologic exam: unremarkable Oral cavity: normal, no lesions Peripheral pulses: normal (2+) bilatera lly Back: normal
--- OUTSIDE RECORDS SUMMARY | 2024-07-25 10:24 | XMS_ITS ---
Author Organization [facility] Address [address] [place] [address] Care Team Providers Care Partner Manager Name Role Phone Dr. Dilip Alfonso Primary Care Provider Negrita Duque [phone] REASON FOR VISIT 90Day Rx Medications Medication SIG (Take, Route, Fr equency, Duration) Notes Start Date End Date Status Cetirizine HCl 10 MG Take 1 tablet by mo uth twice daily for 90 days Active Encounters Encounter Location Date Provider Diagnosis [facility] [address] [facility] [address] [place] [address] 05/29/2024 Negrita Cobb Other urticaria L50. 8 Assessments Encounter Date Diagnosis (ICD Code) Assessment Notes Treatment Notes Treatment Clinical Notes Section Notes 05/29/2024 Other urticaria (ICD-10 - L50.8) Plan Of Treatment Medication Medication Name Sig Start Date Stop Date Notes Cetirizine HCl 10 MG Take 1 tablet by mo uth twice daily for 90 days Next Appt Details Provider Name:Negrita Cobb , 08/16/2024 03:30:00 PM, [address], [address], [place], [address], Progress Notes * Jeferson COMERDOB: [birth year] (68 yo M)Acc No.[id number]:05/29/2024 Patient: Jackelin Jeferson ARCE :1955 A ge:68 Y S ex:Male Address:[address] [place] [address], [address] * Refills Refill Cetirizine HCl Tablet, 10 MG, 180, Take 1 tablet by mouth twice daily, 90 days, Refills=1 * true * Date: Generated for Jyotsna negrete/Aron/Mary on: 0 07/25/2024 10:24 AM CDT
--- OUTSIDE RECORDS SUMMARY | 2024-07-25 10:24 | XMS_ITS | Clinical Summary ---
Author Organization [facility] Address [address] [place] [address] Care Team Providers Care Roll Edge Machine Operator Name Role Phone Jonathan Kulkarni MD Primary Care Provider [phone] Source Comments [facility],non-owned Affiliates and Associated Physician Practices is amultiple site organization consisting of ambulatory clinics and hospital sitesin [place], [place], [place] and [place]. This disclosure is being madepursuant to the Care Everywhere program and may not contain all information available regarding this patient. Last updated 18.[facility] Allergies Active Allergy Reactions Criticality Noted Date Comments Aspirin Swelling Low 10/15/2013 Codeine Swelling Low 10/15/2013 Pseudoephedrine Base Rash Medium 03/16/2017 Immunizations Name Administration Dates Next Due TDAP (7yrs+) 01/01/2021 Social History Tobacco Use Types Packs/Day Years Used Date Smoking Tobacco: Never Smokeless Tobacco: Never Alcohol Use Standard Drinks/Week Comments Never 0 (1 standard drink = 0.6 oz pur e alcohol) Sex and Gender Information Value Date Recorded Sex Assigned at Not on file Gender Identity Not on file Sexual Orientation Not on file Last Filed Vital Signs Vital Sign Reading Time Taken Comments Blood Pressure 132/65 01/01/2021 7:23 AM CDT Pulse 106 01/01/2021 7:23 AM CDT Temperature 36.7 C (98 F) 01/01/2021 7:23 AM CDT Respiratory Rate 16 01/01/2021 7:23 AM CDT Oxygen Saturation 97% 01/01/2021 7:23 AM CDT Inhaled Oxygen Concentration - - Weight 80.3 kg (177 lb) 01/01/2021 7:23 AM CDT Height 180.3 cm (5' 11 ) 01/01/2021 7:23 AM CDT Body Mass Index 24.69 01/01/2021 7:23 AM CDT Plan of Treatment Health Maintenance Due Date Last Done Comments COLOGUARD (AGES 45-75) - COL ON CA SCREENING 1955 COLON MONITORING 1955 COLONOSCOPY - COLON CA SCREENING 1955 CT COLONOGRAPHY - COLON CA SCREENING 1955 Colorectal Cancer Screening 1955 FIT - COLON CA SCREENING 1955 FLEX SIG - COLON CA SCREENING 1955 LIPID TESTING 1955 HEPATITIS C SCREENING 12/19/1973 PNEUMOCOCCAL VACCINE 50+ (1 of 1 - PCV) 12/23/2005 ZOSTER VACCINE (1 of 2) 12/23/2005 COVID-19 VACCINE ( - 2023-2 5 season) 2024 INFLUENZA VACCINE (#1) 2024 DEPRESSION SCREENING 05/02/2024 Respiratory Syncytial Virus (RSV) Vaccine Pt: or over 60 yrs (1 - 1-dose 75+ series) 12/23/2030 DTAP/TDAP/TD VACCINES (2 - T d or Tdap) 01/01/2031 01/01/2021 HEPATITIS B VACCINE Aged Out No longe r eligible based on patient's age to complete this topic HIB VACCINE Aged Out No longer eligi ble based on patient's age to complete this topic HPV VACCINE Aged Out No longer eligi ble based on patient's age to complete this topic MENINGOCOCCAL (Group B) VACC INE SHARED DECISION-MAKING Aged Out No longer eligibl e based on patient's age to complete this topic MENINGOCOCCAL GROUPS A/C/Y/W VACCINE Aged Out No longer eligible b ased on patient's age to complete this topic Care Teams Roll Edge Machine Operator Relationship Specialty Start Date End Date Jonathan Kulkarni MD [address] [place] [address] PCP - General Internal Medicine 01/01/21
--- OUTSIDE RECORDS SUMMARY | 2024-07-25 10:25 | XMS_ITS | Patient Health Record ---
Author Organization [facility] Address [address] [place] [address] Care Team Providers Care Plant Sciences Professor Name Role Phone Dr. Dilip Alfonso Primary Care Provider Radha Negrita Benton Unavailable [phone] Allergies Allergen (clinical drug ingredient) Drug/Non Drug Allergy documented on EMR Reaction Allergy Type Onset Date Status Sudafed Unknown Drug Allergy Active Results Component Value Reference Range Notes -Chronic Urticaria -- Autoim mune IgE receptor antibody ([id number]) Reviewed date:03/25/2024 01:41:55 PM Interpretation:Normal Performing Lab:[facility] [address] [place] [id number], Phone - [phone], Director - PhDBCNeil Notes/Report: cu index 5.9 <10 The CU Index(R) test is the second generation Functional Anti-FceR test. Patients with a CU Index(R) greater than or equal to 10 have basophil reactive factors in their serum which supports an autoimmune basis for disease. *This test was developed and its performance characteristics determined by [facility]. It has not been cleared or approved by the U.S. Food and Drug Administration. FLAG Interpretation: A = Abnormal, H = High, L = Low -CU Panel ([id number]) Reviewed date:03/31/2024 08:19:21 PM Interpretation:Abnormal Performing Lab:[facility] [address], [place] [id number], Phone - [phone], Director - Bryce Notes/Report: Glucose 103 70-99 mg/dL BUN 18 8-27 mg/dL Creatinine 1.53 0.76-1.27 mg/dL eGFR 49 >59 mL/min/1.73 BUN/Creatinine Ratio 12 10-24 Sodium 141 134-144 mmol/L Potassium 4.9 3.5-5.2 mmol/L Chloride 103 96-106 mmol/L Carbon Dioxide, Total 22 20-29 mmol/L Calcium 9.5 8.6-10.2 mg/dL Protein, Total 6.4 6.0-8.5 g/dL Albumin 4.2 3.9-4.9 g/dL Globulin, Total 2.2 1.5-4.5 g/dL Bilirubin, Total 0.6 0.0-1.2 mg/dL Alkaline Phosphatase 130 44-121 IU/L AST (SGOT) 16 0-40 IU/L ALT (SGPT) 19 0-44 IU/L Immunoglobulin A, Qn, Serum 221 61-437 mg/dL Immunoglobulin E, Total 879 6-495 IU/mL TSH 3.050 0.450-4.500 uIU/mL ELADIO Direct Negative Negative Rheumatoid Factor (RF) <10.0 <14.0 IU/mL Thyroid Peroxidase (TPO) Ab <9 0-34 IU/mL Thyroglobulin Antibody <1.0 0.0-0.9 IU/mL Thyroglobulin Antibody measured by [facility] [employer] . It should be noted that the presence of thyroglobulin antibodies may not be pathogenic nor diagnostic, especially at very low levels. The assay director credit risk has found that four percent of individuals without evidence of thyroid disease or autoimmunity will have positive TgAb levels up to 4 IU/mL. Deamidated Gliadin Abs, IgA 4 0-19 units Negative 0 - 19 Weak Positive 20 - 30 Moderate to Strong Positive >30 Deamidated Gliadin Abs, IgG 2 0-19 units Negative 0 - 19 Weak Positive 20 - 30 Moderate to Strong Positive >30 t-Transglutaminase (tTG) IgA <2 0-3 U/mL Negative 0 - 3 Weak Positive 4 - 10 Positive >10 . Tissue Transglutaminase (tTG) has been identified as the endomysial antigen. Studies have demonstr- ated that endomysial IgA antibodies have over 99% specificity for gluten sensitive enteropathy. t-Transglutaminase (tTG) IgG <2 0-5 U/mL Negative 0 - 5 Weak Positive 6 - 9 Positive >9 Endomysial Antibody IgA Negative Negative WBC 9.5 3.4-10.8 x10E3/uL Effective April 02, 2024 profile [id number] WBC will be made non-orderable as a stand-alone order code. RBC 4.57 4.14-5.80 x10E6/uL Hemoglobin 14.7 13.0-17.7 g/dL Hematocrit 44.7 37.5-51.0 % MCV 98 79-97 fL MCH 32.2 26.6-33.0 pg MCHC 32.9 31.5-35.7 g/dL RDW 12.6 11.6-15.4 % Platelets 326 150-450 x10E3/uL Neutrophils 45 Not Estab. % Lymphs 32 Not Estab. % Monocytes 11 Not Estab. % Eos 10 Not Estab. % Basos 1 Not Estab. % Neutrophils (Absolute) 4.4 1.4-7.0 x10E3/uL Lymphs (Absolute) 3.0 0.7-3.1 x10E3/uL Monocytes(Absolute) 1.0 0.1-0.9 x10E3/uL Eos (Absolute) 0.9 0.0-0.4 x10E3/uL Baso (Absolute) 0.1 0.0-0.2 x10E3/uL Immature Granulocytes 1 Not Estab. % Immature Grans (Abs) 0.1 0.0-0.1 x10E3/uL Sedimentation Rate-Westergren 2 0-30 mm/hr Specific [place] 1.017 1.005-1.030 pH 5.5 5.0-7.5 Urine-Color Yellow Yellow Appearance Clear Clear WBC Esterase Trace Negative Protein Negative Negative/Trace Glucose Negative Negative Ketones Negative Negative Occult Blood Negative Negative Bilirubin Negative Negative Urobilinogen,Semi-Qn 0.2 0.2-1.0 mg/dL Nitrite, Urine Negative Negative Microscopic Examination See below: Micr oscopic was indicated and was performed. WBC 0-5 0 - 5 /hpf RBC None seen 0 - 2 /hpf Epithelial Cells (non renal) None seen 0 - 10 /hpf Casts None seen None seen /lpf Bacteria None seen None seen/Few -Tryptase ([id number]) Reviewed date:03/25/2024 01:42:13 PM Interpretation:Abnormal Performing Lab:[facility], [place], [place] [id number], Phone - [phone], Director - Scar Notes/Report: Tryptase 29.0 2.2-13.2 ug/L -Chronic Urticaria -- Anti-I gE ([id number]) Reviewed date:03/25/2024 01:42:29 PM Interpretation:Normal Performing Lab:[facility] [address], [facility], [place], [place] [address], Phone - [phone], Director - PhDJuan C Notes/Report: Anti-IgE* Normal Normal This CHRISTINE measures IgG antibodies specific for IgE. A result of normal indicates that the level of IgG anti-IgE antibodies is similar to that seen in a population of healthy individuals. A result of elevated indicates an increased level of IgG anti-IgE antibodies compared to healthy individuals. These autoantibodies have been implicated as a causative agent in autoimmune chronic urticaria and atopic dermatitis. FLAG Interpretation: A = Abnormal, H = High, L = Low c-KIT D816V MUTATION ANALYSI S (MASTOCYTOSIS) Reviewed date:05/13/2024 02:12:46 PM Interpretation:Normal Performing Lab:[facility], [facility], [address] [facility] , [place], [address] Emil Nevarez M.D.,PhD Notes/Report: NON-FASTING FASTING:NO FASTING: NO SOURCE: Whole Blood BLOCK/SPECIMEN ID NG CLINICAL INDICATION Not Given KIT D816 MUTATION Not Detected Not Detected Dr. Stella Smith M.D. INTERPRETATION see note Based on sequence analysis mutation in codon 816 of cKIT is NOT DETECTED. Point mutation of the KIT oncogene at codon 816 (D816V) is seen in >90% of systemic mastocytosis (SM) cases. The presence of KIT D816V mutation is one of the minor criteria for diagnosis of SM and mutation testing can assist in diagnosis, particularly in limited specimens. KIT D816 mutations, including D816V, D816H and D816Y, are also the most common KIT mutations seen in the core-binding factor acute myeloid leukemia (AML). Cases of t(8;21) or inv(16)-bearing acute myeloid leukemia without D816 KIT mutation have favorable outcome compared to those with such mutations. Next-generation sequencing (NGS) was used to detect mutations in codon 816 of cKIT. Coding sequence from cKIT [id number] was used as reference. The sensitivity of this sequencing assay is 5% of mutant alleles in the background of normal alleles. Insertions and deletions of up to 33bp and 24bp, respectively, have been detected by this assay. This test was developed and its analytical performance characteristics have been determined by [facility]. It has not been cleared or approved by FDA. This assay has been validated pursuant to the CLIA regulations and is used for clinical purposes. CBC (INCLUDES DIFF/PLT) Reviewed date:05/05/2024 12:09:55 PM Interpretation:Abnormal Performing Lab:[facility], [facility], [address] [place], [address] Tierra Mandel MD Notes/Report: NON-FASTING WHITE BLOOD CELL COUNT 9.8 3.8-10.8 Thousand/ uL RED BLOOD CELL COUNT 4.62 4.20-5.80 Million/uL HEMOGLOBIN 14.6 13.2-17.1 g/dL HEMATOCRIT 43.3 38.5-50.0 % MCV 93.7 80.0-100.0 fL MCH 31.6 27.0-33.0 pg MCHC 33.7 32.0-36.0 g/dL For adults, a slight decrease in the calculated MCHC value (in the range of 30 to 32 g/dL) is most likely not clinically significant; however, it should be interpreted with caution in correlation with other red cell parameters and the patient's clinical condition. RDW 12.8 11.0-15.0 % PLATELET COUNT 400 140-400 Thousand/uL MPV 9.4 7.5-12.5 fL ABSOLUTE NEUTROPHILS 4430 4635-5892 cells/uL ABSOLUTE LYMPHOCYTES 3273 850-3900 cells/uL ABSOLUTE MONOCYTES 1186 200-950 cells/uL ABSOLUTE EOSINOPHILS 804 15-500 cells/uL ABSOLUTE BASOPHILS 108 0-200 cells/uL NEUTROPHILS 45.2 LYMPHOCYTES 33.4 MONOCYTES 12.1 EOSINOPHILS 8.2 BASOPHILS 1.1 TRYPTASE Reviewed date:05/08/2024 08:54:54 AM Interpretation:Abnormal Performing Lab:[facility], [facility], [address], [place], [address] Emil Nevarez M.D.,PhD Notes/Report: NON-FASTING FASTING:NO FASTING: NO TRYPTASE 29.1 <11.0 mcg/L The Tryptase test, fluorescent enzyme immunoassay (FEIA), measures both the Alpha and Beta forms of Tryptase. Measuring both forms of Tryptase increases sensitivity for the diagnosis of mastocytosis, and mast cell degranulation as a cause of anaphylaxis. Reason For Referral No Information Medications Medication SIG (Take, Route, Frequency, Duration) Notes Start Date End Date Status Lisinopril 40 MG 1 tablet Orally Once a day Not-Taking Trelegy Ellipta 100-62.5-25 MCG/ACT INHALE 1 PUFF BY MOUTH DAILY Inhalation Active Omeprazole 20 MG 1 capsule 1/2 to 1 hour before morning meal Orally Once a day Active Cetirizine HCl 10 MG 1 tablet Orally Twice a day for 30 days Active Famotidine 40 MG TAKE 1 TABLET BY MOUTH TWICE DAILY for 90 Active Atorvastatin Calcium 20 MG 1 tablet Orally Once a day Active Montelukast Sodium 10 MG TAKE 1 TABLET BY MOUTH AT NIGHT for 90 Active amLODIPine Besylate 10 MG Oral for 90 Days Active Albuterol Sulfate HFA 108 (90 Base) MCG/ACT Inhalation for 16 Days Active predniSONE 20 MG 3 tablet Orally Once a day for 5 days 06/14/2024 Active Albuterol Sulfate (2.5 MG/3ML) 0.083% 3 mL as needed Inhalation every 4-6 hrs for 14 days 50 ampules of 3 mL (aka 2 boxes) 06/14/2024 Active Cetirizine HCl 10 MG Take 1 tablet by mouth twice daily for 90 days Active Social History Tobacco Use: Social History Observation Description Date Details (start date - stop date) Former Smoker NA - NA Tobacco Control (Standard) Question Answer Notes Tobacco use: Former smoker Problems Problem Type SNOMED Code ICD Code Onset Dates Problem Status W/U Status Risk Notes Problem Chronic allergic conjunctivitis (84935944) Other chronic allergic conjunctivitis (H10.45) Active confirmed Problem Allergic rhinitis caused by pollen (disorder) (50078766) Allergic rhinitis due to pollen (J30.1) Active confirmed Problem Allergic rhinitis (18577601) Other allergic rhinitis (J30.89) Active confirmed Problem Chronic rhinitis (89693987) Chronic rhinitis (J31.0) Active confirmed Problem Chronic obstructive pulmonary disease (61574117) Chronic obstructive pulmonary disease, unspecified (J44.9) Active confirmed Problem Uncomplicated mild persistent asthma (811973210) Mild persistent asthma, uncomplicated (J45.30) Active confirmed Problem Uncomplicated moderate persistent asthma (540221044) Moderate persistent asthma, uncomplicated (J45.40) Active confirmed Problem Uncomplicated severe persistent asthma (453351527) Severe persistent asthma, uncomplicated (J45.50) Active confirmed Problem Allergic rhinitis caused by animal hair and dander (466445841622083) Allergic rhinitis due to animal (cat) (dog) hair and dander (J30.81) Active confirmed Problem Urticaria (441748631) Other urticaria (L50.8) Active confirmed Vital Signs Respiratory Rate 17 /min 06/14/2024 Oximetry 95 % 06/14/2024 Blood pressure diastolic 74 mm Hg 06/14/2024 Height 71 in 06/14/2024 Blood pressure systolic 154 mm Hg 06/14/2024 Weight 201.8 lbs 06/14/2024 BMI 28.14 kg/m2 06/14/2024 Encounters Encounter Location Date Provider Diagnosis [facility] [address] [place] [address] 03/15/2024 Negrita Young Other urticaria L50. 8 and Chronic obstructive pulmonary disease, unspecified J44.9 [facility] [address] [place] [address] 05/03/2024 Negrita Young Other urticaria L50. 8 ; Hypertrophy of nasal turbinates J34.3 and Chronic cough R05.3 [facility] [address] [place] [address] 06/14/2024 Negrita Young Other urticaria L50. 8 ; Hypertrophy of nasal turbinates J34.3 ; Chronic cough R05.3 and Wheezing R06.[address] [address] 03/18/2024 Negrita Young Other urticaria L5 0.8 [facility] [address] [place] [address] 05/29/2024 Negrita Cobb Other urticaria L50. 8 Assessments Encounter Date Diagnosis (ICD Code) Assessment Notes Treatment Notes Treatment Clinical Notes Section Notes 03/15/2024 Chronic obstructive pulmonary disease, unspecified (ICD-10 - J44.9) Has appt with PCP as it was recommended to see Pulmonary -recs provided -Continue trelegy and albuterol -no wheezing on exam today -had recent PFT, decline alis here 03/15/2024 Other urticaria (ICD-10 - L50.8) Dominic is here for evaluation. From his description of symptoms he has been having hives for about a year. However he has no picture and does not have any lesions today. -Will empirically treat him with high dose anthistamines and LTRA. He will start taking pictures of lesions -Discussed obtaining labs for mast cell, autoimmune, and thyroid conditions -Also discussed Xolair, approved for CSU, if refractory to treatment -He is a daily drinker, needs to see PCP to work on reduction of alcohol as this can worsen hives. Recommend avoiding NSAIDs if possible -Return in 4 weeks for E&M and lab review 03/18/2024 Other urticaria (ICD-10 - L50.8) 05/03/2024 Hypertrophy of nasal turbinates (ICD-10 - J34.3) Mild upper airway symptoms. DcJ=264 WQM=351 likely atopic -check allegy labs as she is on high dose anthistamines 05/03/2024 Other urticaria (ICD-10 - L50.8) Dominic was [...] of anaphylaxis. Recheck tryptase with Ckit mutation -Also discussed Xolair, approved for CSU, if refractory to treatment - currently stable -He is a daily drinker, needs to see PCP to work on reduction of alcohol as this can worsen hives. Recommend avoiding NSAIDs if possible -Return in 4 weeks for E&M and lab review 05/29/2024 Other urticaria (ICD-10 - L50.8) 06/14/2024 Hypertrophy of nasal turbinates (ICD-10 - J34.3) Mild upper airway symptoms. SmH=023 GZT=910 likely atopic -check allegy labs as she is on high dose anthistamines - was not obtained last visit, he wants to see if pulmonary obtains. If not will reorder in 06/14/2024 Other urticaria (ICD-10 - L50.8) Dominic [...] hives. Recommend avoiding NSAIDs if possible 06/14/2024 Chronic cough (ICD-10 - R05.3) Recently established with Dr. Brock. Does not want to duplicate breathing tests.Hospitalize d again in April and May. This last time for parainfluenza. He is wheezing on exam -slated to see [facility] pulmonary and Dr. Brock. Recommend steroids and breathing test but declined the latter as he is going to have a PFT shortly -LrB=651 VID=395 likely has atopic asthma. Will request pulmonary records and breathing test. Highly recommend biologic but at this point I cannot diagnosis asthma as he is focused on hives management here. Ideally today would be a good time to obtain a spirometry -start 5 days of steroids and refill albuterol -Continue trelegy and albuterol. 05/03/2024 Chronic cough (ICD-10 - R05.3) Recently established with Dr. Brock. Does not want to duplicate breathing tests.Hospitalize d again in April -TfP=142 GQY=779 likely has atopic asthma. Will request pulmonary records and breathing test. Consider biologic -Continue trelegy and albuterol. -no wheezing on exam today -had recent PFT, decline alis here. Needed if we start biologic 06/14/2024 Wheezing (ICD-10 - R06.2) See plan above 03/15/2024 Other 05/03/2024 Other 06/14/2024 Other Plan Of Treatment Pending Test Test Name Order Date RESPIRATORY ALLERGY PROFILE REGION VIII: [place] 05/03/2024 TRYPTASE 05/03/2024 CBC (INCLUDES DIFF/PLT) 05/03/2024 c-KIT D816V MUTATION ANALYSIS (MASTOCYTO SIS) 05/03/2024 Next Appt Details Provider Name:Negrita Graciela Cobb , 08/16/2024 03:30:00 PM, [address] [facility] [address], [place], [address], Insurance Providers Payer Name Payer Address Payer Phone Subscriber Number Group Number Insured Name Patient Relationship to Insured Coverage Start Date Coverage End Date [employer] (Medicare) Attention Claims [address] [place] [address] [id number] Jeferson Comer Self - [place] [address] [id number] Jeferson Comer Self - patient is the insured Medical (General) History Medical History History ICD Code Gastro-esophageal reflux disease without esophagitis K21.9 Essential (primary) hypertension I10 Surgical History Surgery Date(Month/Year) knee replacement 2021 Hospitalization History Reason Date(Month/Year) breathing difficulties 05/2024 Oxygen levels 04/2024 chronic cough 01/2024
--- OUTSIDE RECORDS SUMMARY | 2024-07-25 10:25 | XMS_ITS | Clinical Summary ---
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 Role Phone No, Physician Primary Care Provider [phone] Allergies No known active allergies Medications cetirizine (ZyrTEC) 10 mg tablet Take 1 tablet (10 mg total) by mouth 2 (two) times a day Active famotidine (PEPCID) 40 mg tablet Take 1 tablet (40 mg total) by mouth 2 (two) times a day 5 Active Trelegy Ellipta 100-62.5-25 mcg inhaler Inhale 1 puff daily 5 Active ipratropium-al buteroL (DUO-NEB) 0.5-2.5 mg/3 mL nebulizer solution Take 1 mL by nebulization every 6 (six) hours Active irbesartan (AVAPRO) 150 mg tablet Take 1 tablet (150 mg total) by mouth daily 5 Active metoprolol tartrate (LOPRESSOR) 25 mg immediate release tablet Take 1 tablet (25 mg total) by mouth 2 (two) times a day 5 Active montelukast (SINGULAIR) 10 mg tablet Take 1 tablet (10 mg total) by mouth nightly at bedtime 5 Active amLODIPine (NORVASC) 10 mg tablet Take 1 tablet (10 mg total) by mouth daily 5 06/03/19 26 Active atorvastatin (LIPITOR) 40 mg tablet Take 1 tablet (40 mg total) by mouth daily 5 06/03/19 26 Active benzocaine-men thoL (CHLORASEPTIC) 6-10 mg lozenge Take 1 lozenge by mouth every 4 (four) hours as needed for sore throat 100 tablet 5 07/03/19 25 Active Problems Problem Noted Date Diagnosed Date Shortness of breath 05/29/2024 Encounters Date Type Department Care Team Description 07/24/[address] [facility] Scheduling [address] [place] [address] Suleiman Antoine MD Chronic obstructive pulmonary disease with (acute) exacerbation (HCC) (Primary Dx) 06/04/2024 SHOP/CHAP Initial Outreach [facility] OP CASE MANAGEMENT [address] [place] [address] Lilian Ribera, [facility] 06/04/2024 SHOP/CHAP Initial Eligibility Review [facility] OP CASE MANAGEMENT [address] [place] [address] Tuyet Falk, [facility] 05/29/2024 12:46 PM INCOME TAX ADVISOR - 06/02/2024 11:45 AM INCOME TAX ADVISOR Hospital Encounter [facility] [address] [place] [address] Rudi Cash MD Cohn, MD Mary Aguayo, MD hSruthi Tinajero, MD Josh Ogden, MD Ciaran Mckeon, Stephen Vincent MD Shortness of breath (Primary Dx); Parainfluenza; Hypoxia; Chronic obstructive pulmonary disease with acute exacerbation (HCC) Discharge Disposition: Discharge to home or self care from Last 3 Months Immunizations Immunization Administration Dates Next Due Influenza, Trivalent, High D ose, Split, Preservative Free, Intramuscular 06/02/2024,06/01/2024(Deferred: - please give flu shot this morning 06/01) Social History Tobacco Use Types Packs/Day Years Used Date Smoking Tobacco: Former Cigarettes Q uit: 1987 Tobacco Cessation:Counseling Given: Not Answered [facility] Utilities Answer Date Recorded In the past 12 months has [employer], gas, oil, or water [employer] threatened to shut off services in your [...] often do you attend chur ch or pentecostalism services? Never 06/04/2024 Do you belong to any clubs o r organizations such as restoration groups, unions, fraternal or athletic groups, or [...] any time in the past 12 m [facility], were you homeless or living in a jail (including now)? No 06/04/2024 Personal Safety Answer Date Recorded Have you ever been in or are you currently in a harmful physical or emotional relationship or is someone making you feel afraid or unsafe? Denies 05/29/2024 Sex and Gender Information Value Date Recorded Sex Assigned at Not on file Legal Sex Male 11:19 AM INCOME TAX ADVISOR Gender Identity Not on file Sexual Orientation Not on file Obstetrics History Last Filed Vital Signs Vital Sign Reading Time Taken Comments Blood Pressure 156/78 06/02/2024 8:04 AM INCOME TAX ADVISOR Pulse 102 06/02/2024 8:04 AM INCOME TAX ADVISOR Temperature 36.4 C (97.5 F) 06/02/2024 8:04 AM INCOME TAX ADVISOR Respiratory Rate 18 06/02/2024 8:04 AM INCOME TAX ADVISOR Oxygen Saturation 97% 06/02/2024 11: 16 AM INCOME TAX ADVISOR Inhaled Oxygen Concentration - - Weight 86.1 kg (189 lb 13.1 oz) 05/30/2024 6:59 PM INCOME TAX ADVISOR Height 180.3 cm (5' 11 ) 05/30/2024 6:59 PM INCOME TAX ADVISOR Body Mass Index 26.47 05/30/2024 6:59 PM INCOME TAX ADVISOR Plan of Treatment Health Maintenance Due Date Last Done Comments Colon Cancer Screening-Colonoscopy 1955 Depression Screening 1955 Hepatitis C Screening 1955 Prostate Cancer Screening-PSA 1955 Hepatitis B Screening 12/23/1973 Zoster Vaccine (1 of 2) 12/23/2005 Abdominal Aortic Aneurysm (A AA) Screen 12/23/2020 Well Visit 65+ 12/23/2020 Pneumococcal vaccine 65+ (2 of 2 - PPSV23) 01/15/2022 11/20/2021 Covid-19 Vaccine (2 - 2023-2 5 season) 2024 09/05/2020 Fall Risk Assessment 06/02/2025 06/02/2024 DTaP/Tdap/Td Vaccine (2 - Td or Tdap) 01/01/2031 01/01/2021 Influenza Vaccine Completed 06/02/2024, , 03/13/2021, Additional history exists Procedures Procedure Name Priority Date/Time Associated Diagnosis Comments POCT GLUCOSE DEVICE Routine 06/02/2024 1 1:28 AM INCOME TAX ADVISOR POCT GLUCOSE DEVICE Routine 06/02/2024 7 :21 AM INCOME TAX ADVISOR EGFR Routine 06/01/2024 11:12 PM INCOME TAX ADVISOR DIFFERENTIAL AUTO Routine 06/01/2024 11: 12 PM INCOME TAX ADVISOR CBC WITH AUTO DIFFERENTIAL Routine 06/01/2024 11:12 PM INCOME TAX ADVISOR COMPREHENSIVE METABOLIC PANEL Routine 06/01/2024 11:12 PM INCOME TAX ADVISOR POCT GLUCOSE DEVICE Routine 06/01/2024 7 :48 PM INCOME TAX ADVISOR POCT GLUCOSE DEVICE Routine 06/01/2024 5 :20 PM INCOME TAX ADVISOR POCT GLUCOSE DEVICE Routine 06/01/2024 1 1:20 AM INCOME TAX ADVISOR POCT GLUCOSE DEVICE Routine 06/01/2024 7 :13 AM INCOME TAX ADVISOR EGFR Routine 05/31/2024 9:21 PM INCOME TAX ADVISOR DIFFERENTIAL AUTO Routine 05/31/2024 9:2 1 PM INCOME TAX ADVISOR CBC WITH AUTO DIFFERENTIAL Routine 05/31/2024 9:21 PM INCOME TAX ADVISOR COMPREHENSIVE METABOLIC PANEL Routine 05/31/2024 9:21 PM INCOME TAX ADVISOR POCT GLUCOSE DEVICE Routine 05/31/2024 7 :53 PM INCOME TAX ADVISOR POCT GLUCOSE DEVICE Routine 05/31/2024 4 :22 PM INCOME TAX ADVISOR POCT GLUCOSE DEVICE Routine 05/31/2024 1 1:30 AM INCOME TAX ADVISOR EGFR Routine 05/31/2024 8:04 AM INCOME TAX ADVISOR DIFFERENTIAL AUTO Routine 05/31/2024 8:0 4 AM INCOME TAX ADVISOR CBC WITH AUTO DIFFERENTIAL Routine 05/31/2024 8:04 AM INCOME TAX ADVISOR COMPREHENSIVE METABOLIC PANEL Routine 05/31/2024 8:[address] CHEST W CONTRAST IP Routine 05/30/2024 8 :11 PM INCOME TAX ADVISOR TROPONIN I HIGH-SENSITIVITY 6-HOUR Timed 05/29/2024 8:37 PM INCOME TAX ADVISOR EGFR STAT 05/29/2024 2:29 PM INCOME TAX ADVISOR DIFFERENTIAL AUTO STAT 05/29/2024 2:2 9 PM INCOME TAX ADVISOR PRO B-TYPE NATRIURETIC PEPTIDE STAT 05/29/2024 2:29 PM INCOME TAX ADVISOR TROPONIN I HIGH-SENSITIVITY SERIES (BASELINE, 2HR, 4HR, 6HR) STAT 05/29/2024 2:29 PM INCOME TAX ADVISOR CBC WITH AUTO DIFFERENTIAL STAT 05/29/2024 2:29 PM INCOME TAX ADVISOR COMPREHENSIVE METABOLIC PANEL STAT 05/29/2024 2:29 PM INCOME TAX ADVISOR XR CHEST PA LATERAL 2 VIEWS ED 05/29/2024 12:29 PM INCOME TAX ADVISOR ECG 12-LEAD STAT 05/29/2024 12:02 PM INCOME TAX ADVISOR RESPIRATORY PATHOGEN PANEL Routine 05/29/2024 11:59 AM INCOME TAX ADVISOR from Last 3 Months Results * POCT glucose (06/02/2024 11:28 AM INCOME TAX ADVISOR) Glucose, POC 122 70 - 199 mg/dL Blood 06/02/2024 11:2 8 AM INCOME TAX ADVISOR 06/02/2024 11:28 AM INCOME TAX ADVISOR us Stephen Wagoner MD LAB POCT ORDERABLES - DEVIC E Final Result SHEIL[facility] [address] [facility] Department [place] [address] * POCT glucose (06/02/2024 7:21 AM INCOME TAX ADVISOR) [facility] Glucose, POC 103 70 - 199 mg/dL Blood 06/02/2024 7:21 AM INCOME TAX ADVISOR 06/02/2024 7:21 AM INCOME TAX ADVISOR Stephen Wagoner MD LAB POCT ORDERABLES - DEVIC E Final Result Performing Organization Address City/[facility]/ZIP Co de Phone Number SHEILA [facility] Department [place] [address] * eGFR (06/01/2024 11:12 PM INCOME TAX ADVISOR) [facility] eGFR 72 >=60 mL/min/1. 73 m2 Comment: Interpretive Data Reference Interval Normal >/= 90 mL/min/1.73m2 Mildly decreased* 60 - 89 mL/min/1.73m2 Mildly to moderately decreased 45 - 59 mL/min/1.73m2 Moderately to severely decreased 30 - 44 mL/min/1.73m2 Severely decreased 15 - 29 mL/min/1.73m2 Kidney Failure < 15 mL/min/1.73m2 *Relative to young adult level Estimated glomerular filtration rate is determined by the 2020 CKD-EPI equation recommended by the National Kidney Foundation (A Unifying Approach to GFR Estimation: Recommendations of the NKF-ASK Task Force on Reassessing the Inclusion of Race in Diagnosing Kidney Disease, JASN 2020). The CKD-EPI equation should not be used for patients with unstable renal function and has not been validated in children and those over 70. Current interpretive data was last reviewed 2021. Blood 06/01/2024 11:1 2 PM INCOME TAX ADVISOR 06/02/2024 12:44 AM INCOME TAX ADVISOR us Stephen Wagoner MD LAB BLOOD ORDERABLES Final Result [facility] [place] [address] * (ABNORMAL) Differential, auto (06/01/2024 11:12 PM INCOME TAX ADVISOR) Neutrophil abs 9.7(H) 1.5 - 6.5 K/cumm Imm gran abs 0.1 0.0 - 0.1 K/cumm [facility] Lymphocyte abs 2.1 0.8 - 3.3 K/cumm [facility] Monocyte abs 1.1(H) 0.2 - 0.8 K/cumm [facility] Eosinophil abs 0.0 0.0 - 0.5 K/cumm [facility] Basophil abs 0.1 0.0 - 0.1 K/cumm [facility] Neutrophil pct 73.9 % [facility] Comment: Interpretive Data Percent cell count reference ranges are not reported, since discordance with absolute values may lead to misinterpretation of CBC data. Current Interpretive Data was last revised on 2017. Imm gran pct 0.7 % [facility] Comment: Interpretive Data Percent cell count reference ranges are not reported, since discordance with absolute values may lead to misinterpretation of CBC data. Current Interpretive Data was last revised on 2017. Lymphocyte pct 15.9 % [facility] Comment: Interpretive Data Percent cell count reference ranges are not reported, since discordance with absolute values may lead to misinterpretation of CBC data. Current Interpretive Data was last revised on 2017. Monocyte pct 8.7 % [facility] Comment: Interpretive Data Percent cell count reference ranges are not reported, since discordance with absolute values may lead to misinterpretation of CBC data. Current Interpretive Data was last revised on 2017. Eosinophil pct 0.3 % [facility] Comment: Interpretive Data Percent cell count reference ranges are not reported, since discordance with absolute values may lead to misinterpretation of CBC data. Current Interpretive Data was last revised on 2017. Basophil pct 0.5 % [facility] Comment: Interpretive Data Percent cell count reference ranges are not reported, since discordance with absolute values may lead to misinterpretation of CBC data. Current Interpretive Data was last revised on 2017. Blood 06/01/2024 11:1 2 PM INCOME TAX ADVISOR 06/02/2024 12:43 AM INCOME TAX ADVISOR Stephen Wagoner MD LAB BLOOD ORDERABLES Final Result Performing Organization Address [facility]/ZIP Co de Phone Number [facility] Department [place] [address] * (ABNORMAL) CBC with auto differential (06/01/2024 11:12 PM INCOME TAX ADVISOR) [facility] WBC 13.2(H) 3.8 - 9.9 K/cumm Hgb 13.6 13.0 - 17.5 g/dL [facility] Hct 39.2 38.9 - 50.3 % [facility] Plt 350 150 - 400 K/cumm [facility] MPV 9.6 9.1 - 12.3 fL [facility] RBC 4.37 4.30 - 5.80 M/cumm [facility] MCV 89.7 81.3 - 96.4 fL [facility] MCH 31.1 27.1 - 33.3 pg [facility] MCHC 34.7 32.3 - 35.7 g/dL [facility] RDW CV 12.7 11.1 - 14.9 % [facility] RDW SD 41.9 35.7 - 48.1 fL [facility] NRBC abs 0.00 0.00 - 0.01 K/cumm [facility] Blood 06/01/2024 11:1 2 PM INCOME TAX ADVISOR 06/02/2024 12:43 AM INCOME TAX ADVISOR Stephen Wagoner MD LAB BLOOD ORDERABLES Final Result Performing Organization Address [facility] Co de Phone Number [facility] Department [place] [address] * Comprehensive metabolic panel (06/01/2024 11:12 PM INCOME TAX ADVISOR) [facility] Sodium 140 135 - 145 mmol/L Potassium, pl 4.2 3.3 - 4.9 mmol/L [facility] Chloride 103 97 - 110 mmol/L [facility] CO2 22 22 - 32 mmol/L [facility] Anion gap 15 2 - 15 mmol/L [facility] BUN 24 6 - 25 mg/dL [facility] Creatinine 1.12 0.80 - 1.30 mg/dL [facility] Glucose 177 70 - 199 mg/dL [facility] Comment: Interpretive Data Fasting glucose >/= 126 mg/dl is diagnostic for diabetes. Fasting is defined as no caloric intake for at least 8 hours. Fasting glucose between 100 mg/dl to 125 mg/dl is diagnostic of prediabetes. In a patient with classic symptoms of hyperglycemia or hyperglycemic crisis, a random glucose >/= 200 mg/dl is diagnostic for diabetes. In the absence of unequivocal hyperglycemia, results should be confirmed by repeat testing. The classification and Diagnosis of Diabetes Diabetes Care 2021; 46: S19-S40. Current interpretive data was last revised 2022. Calcium 9.6 8.5 - 10.3 mg/dL [facility] Bilirubin, total 0.5 0.1 - 1.2 mg/dL [facility] Protein, pl 6.9 6.5 - 8.5 g/dL [facility] Albumin 4.0 3.5 - 5.0 g/dL [facility] Alk phos 130 40 - 130 Units/L [facility] ALT 22 7 - 55 Units/L [facility] AST 22 10 - 50 Units/L [facility] Blood 06/01/2024 11:1 2 PM INCOME TAX ADVISOR 06/02/2024 12:44 AM INCOME TAX ADVISOR Stephen Wagoner MD LAB BLOOD ORDERABLES Final Result Performing Organization Address [facility]/ZIP Co de Phone Number [facility] Department [place] [address] * POCT glucose (06/01/2024 7:48 PM INCOME TAX ADVISOR) [facility] Glucose, POC 159 70 - 199 mg/dL Blood 06/01/2024 7:48 PM INCOME TAX ADVISOR 06/01/2024 7:48 PM INCOME TAX ADVISOR Stephen Wagoner MD LAB POCT ORDERABLES - DEVIC E Final Result Performing Organization Address [facility] Co de Phone Number [facility] Department [place] [address] * POCT glucose (06/01/2024 5:20 PM INCOME TAX ADVISOR) Glucose, POC 189 70 - 199 mg/dL Blood 06/01/2024 5:20 PM INCOME TAX ADVISOR 06/01/2024 5:20 PM INCOME TAX ADVISOR Stephen Wagoner MD LAB POCT ORDERABLES - DEVIC [place] [address] * POCT glucose (06/01/2024 11:20 AM INCOME TAX ADVISOR) Glucose, POC 150 70 - 199 mg/dL Blood 06/01/2024 11:2 0 AM INCOME TAX ADVISOR 06/01/2024 11:20 AM INCOME TAX ADVISOR Stephen Wagoner MD LAB POCT ORDERABLES - DEVIC E Final Result Performing Organization Address City/[facility]/ZIP Co de Phone Number [facility] [place] [address] * POCT glucose (06/01/2024 7:13 AM INCOME TAX ADVISOR) Glucose, POC 83 70 - 199 mg/dL Blood 06/01/2024 7:13 AM INCOME TAX ADVISOR 06/01/2024 7:13 AM INCOME TAX ADVISOR Stephen Wagoner MD LAB POCT ORDERABLES - DEVIC E Final Result Performing Organization Address City/[facility]/ZIP [place] [address] * eGFR (05/31/2024 9:21 PM INCOME TAX ADVISOR) eGFR 70 >=60 mL/min/1. 73 m2 Comment: Interpretive Data Reference Interval Normal >/= 90 mL/min/1.73m2 Mildly decreased* 60 - 89 mL/min/1.73m2 Mildly to moderately decreased 45 - 59 mL/min/1.73m2 Moderately to severely decreased 30 - 44 mL/min/1.73m2 Severely decreased 15 - 29 mL/min/1.73m2 Kidney Failure < 15 mL/min/1.73m2 *Relative to young adult level Estimated glomerular filtration rate is determined by the 2020 CKD-EPI equation recommended by the National Kidney Foundation (A Unifying Approach to GFR Estimation: Recommendations of the NKF-ASK Task Force on Reassessing the Inclusion of Race in Diagnosing Kidney Disease, JASN 2020). The CKD-EPI equation should not be used for patients with unstable renal function and has not been validated in children and those over 70. Current interpretive data was last reviewed 2021. Blood 05/31/2024 9:21 PM INCOME TAX ADVISOR 05/31/2024 11:01 PM INCOME TAX ADVISOR Stephen Wagoner MD LAB BLOOD ORDERABLES Final Result [facility] Department [place] [address] * (ABNORMAL) Differential, auto (05/31/2024 9:21 PM INCOME TAX ADVISOR) Neutrophil abs 11.3(H) 1.5 - 6.5 K/cumm Imm gran abs 0.1 0.0 - 0.1 K/cumm [facility] Lymphocyte abs 3.0 0.8 - 3.3 K/cumm [facility] Monocyte abs 1.3(H) 0.2 - 0.8 K/cumm [facility] Eosinophil abs 0.0 0.0 - 0.5 K/cumm [facility] Basophil abs 0.1 0.0 - 0.1 K/cumm [facility] Neutrophil pct 71.8 % [facility] Comment: Interpretive Data Percent cell count reference ranges are not reported, since discordance with absolute values may lead to misinterpretation of CBC data. Current Interpretive Data was last revised on 2017. Imm gran pct 0.6 % [facility] Comment: Interpretive Data Percent cell count reference ranges are not reported, since discordance with absolute values may lead to misinterpretation of CBC data. Current Interpretive Data was last revised on 2017. Lymphocyte pct 18.7 % [facility] Comment: Interpretive Data Percent cell count reference ranges are not reported, since discordance with absolute values may lead to misinterpretation of CBC data. Current Interpretive Data was last revised on 2017. Monocyte pct 8.3 % [facility] Comment: Interpretive Data Percent cell count reference ranges are not reported, since discordance with absolute values may lead to misinterpretation of CBC data. Current Interpretive Data was last revised on 2017. Eosinophil pct 0.2 % [facility] Comment: Interpretive Data Percent cell count reference ranges are not reported, since discordance with absolute values may lead to misinterpretation of CBC data. Current Interpretive Data was last revised on 2017. Basophil pct 0.4 % [facility] Comment: Interpretive Data Percent cell count reference ranges are not reported, since discordance with absolute values may lead to misinterpretation of CBC data. Current Interpretive Data was last revised on 2017. Blood 05/31/2024 9:21 PM INCOME TAX ADVISOR 05/31/2024 11:02 PM INCOME TAX ADVISOR us Stephen Wagoner MD LAB BLOOD ORDERABLES Final Result [facility] Department [place] [address] * (ABNORMAL) CBC with auto differential (05/31/2024 9:21 PM INCOME TAX ADVISOR) WBC 15.8(H) 3.8 - 9.9 K/cumm Hgb 14.4 13.0 - 17.5 g/dL [facility] Hct 41.5 38.9 - 50.3 % [facility] Plt 359 150 - 400 K/cumm [facility] MPV 9.5 9.1 - 12.3 fL [facility] RBC 4.49 4.30 - 5.80 M/cumm [facility] MCV 92.4 81.3 - 96.4 fL [facility] MCH 32.1 27.1 - 33.3 pg [facility] MCHC 34.7 32.3 - 35.7 g/dL [facility] RDW CV 12.9 11.1 - 14.9 % [facility] RDW SD 43.8 35.7 - 48.1 fL [facility] NRBC abs 0.00 0.00 - 0.01 K/cumm [facility] Blood 05/31/2024 9:21 PM INCOME TAX ADVISOR 05/31/2024 11:02 PM INCOME TAX ADVISOR us Stephen Wagoner MD LAB BLOOD ORDERABLES Final Result [facility] Department [place] [address] * (ABNORMAL) Comprehensive metabolic panel (05/31/2024 9:21 PM INCOME TAX ADVISOR) Sodium 141 135 - 145 mmol/L Potassium, pl 3.8 3.3 - 4.9 mmol/L [facility] Chloride 103 97 - 110 mmol/L [facility] CO2 23 22 - 32 mmol/L [facility] Anion gap 15 2 - 15 mmol/L [facility] BUN 22 6 - 25 mg/dL [facility] Creatinine 1.14 0.80 - 1.30 mg/dL [facility] Glucose 158 70 - 199 mg/dL [facility] Comment: Interpretive Data Fasting glucose >/= 126 mg/dl is diagnostic for diabetes. Fasting is defined as no caloric intake for at least 8 hours. Fasting glucose between 100 mg/dl to 125 mg/dl is diagnostic of prediabetes. In a patient with classic symptoms of hyperglycemia or hyperglycemic crisis, a random glucose >/= 200 mg/dl is diagnostic for diabetes. In the absence of unequivocal hyperglycemia, results should be confirmed by repeat testing. The classification and Diagnosis of Diabetes Diabetes Care 202; 46: S19-S40. Current interpretive data was last revised 2022. Calcium 9.4 8.5 - 10.3 mg/dL [facility] Bilirubin, total 0.5 0.1 - 1.2 mg/dL [facility] Protein, pl 7.5 6.5 - 8.5 g/dL [facility] Albumin 4.6 3.5 - 5.0 g/dL [facility] Alk phos 145(H) 40 - 130 Units/L [facility] ALT 24 7 - 55 Units/L [facility] AST 15 10 - 50 Units/L [facility] Blood 05/31/2024 9:21 PM INCOME TAX ADVISOR 05/31/2024 11:01 PM INCOME TAX ADVISOR Stephen Wagoner MD LAB BLOOD ORDERABLES Final Result Performing Organization Address City/[facility]/ZIP Co de Phone Number [facility] [place] [address] * (ABNORMAL) POCT glucose (05/31/2024 7:53 PM INCOME TAX ADVISOR) Glucose, POC 275(H) 70 - 199 mg/dL Blood 05/31/2024 7:53 PM INCOME TAX ADVISOR 05/31/2024 7:53 PM INCOME TAX ADVISOR Stephen Wagoner MD LAB POCT ORDERABLES - DEVIC E Final Result Performing Organization Address City/[facility] Co de Phone Number [facility] [place] [address] * (ABNORMAL) POCT glucose (05/31/2024 4:22 PM INCOME TAX ADVISOR) Glucose, POC 202(H) 70 - 199 mg/dL Blood 05/31/2024 4:22 PM INCOME TAX ADVISOR 05/31/2024 4:22 PM INCOME TAX ADVISOR Stephen Wagoner MD LAB POCT ORDERABLES - DEVIC E Final Result Performing Organization Address City/[facility]/ZIP Co de Phone Number [facility] [place] [address] * POCT glucose (05/31/2024 11:30 AM INCOME TAX ADVISOR) Glucose, POC 136 70 - 199 mg/dL Blood 05/31/2024 11:3 0 AM INCOME TAX ADVISOR 05/31/2024 11:30 AM INCOME TAX ADVISOR Stephen Wagoner MD LAB POCT ORDERABLES - DEVIC E Final Result Performing Organization Address City/[facility]/ZIP Co de Phone Number [facility] Department [place] [address] * eGFR (05/31/2024 8:04 AM INCOME TAX ADVISOR) eGFR 70 >=60 mL/min/1. 73 m2 Comment: Interpretive Data Reference Interval Normal >/= 90 mL/min/1.73m2 Mildly decreased* 60 - 89 mL/min/1.73m2 Mildly to moderately decreased 45 - 59 mL/min/1.73m2 Moderately to severely decreased 30 - 44 mL/min/1.73m2 Severely decreased 15 - 29 mL/min/1.73m2 Kidney Failure < 15 mL/min/1.73m2 *Relative to young adult level Estimated glomerular filtration rate is determined by the 2020 CKD-EPI equation recommended by the National Kidney Foundation (A Unifying Approach to GFR Estimation: Recommendations of the NKF-ASK Task Force on Reassessing the Inclusion of Race in Diagnosing Kidney Disease, JASN 2020). The CKD-EPI equation should not be used for patients with unstable renal function and has not been validated in children and those over 70. Current interpretive data was last reviewed 2021. Blood 05/31/2024 8:04 AM INCOME TAX ADVISOR 05/31/2024 8:44 AM INCOME TAX ADVISOR Stephen Wagoner MD LAB BLOOD ORDERABLES Final Result Performing Organization Address City/[facility]/ZIP Co de Phone Number [facility] [place] [address] * (ABNORMAL) Differential, auto (05/31/2024 8:04 AM INCOME TAX ADVISOR) Neutrophil abs 6.5 1.5 - 6.5 K/cumm Imm gran abs 0.1 0.0 - 0.1 K/cumm [facility] Lymphocyte abs 3.8(H) 0.8 - 3.3 K/cumm [facility] Monocyte abs 1.0(H) 0.2 - 0.8 K/cumm [facility] Eosinophil abs 0.2 0.0 - 0.5 K/cumm [facility] Basophil abs 0.1 0.0 - 0.1 K/cumm [facility] Neutrophil pct 56.5 % [facility] Comment: Interpretive Data Percent cell count reference ranges are not reported, since discordance with absolute values may lead to misinterpretation of CBC data. Current Interpretive Data was last revised on 2017. Imm gran pct 0.5 % [facility] Comment: Interpretive Data Percent cell count reference ranges are not reported, since discordance with absolute values may lead to misinterpretation of CBC data. Current Interpretive Data was last revised on 2017. Lymphocyte pct 32.8 % [facility] Comment: Interpretive Data Percent cell count reference ranges are not reported, since discordance with absolute values may lead to misinterpretation of CBC data. Current Interpretive Data was last revised on 2017. Monocyte pct 8.4 % [facility] Comment: Interpretive Data Percent cell count reference ranges are not reported, since discordance with absolute values may lead to misinterpretation of CBC data. Current Interpretive Data was last revised on 2017. Eosinophil pct 1.3 % [facility] Comment: Interpretive Data Percent cell count reference ranges are not reported, since discordance with absolute values may lead to misinterpretation of CBC data. Current Interpretive Data was last revised on 2017. Basophil pct 0.5 % [facility] Comment: Interpretive Data Percent cell count reference ranges are not reported, since discordance with absolute values may lead to misinterpretation of CBC data. Current Interpretive Data was last revised on 2017. Blood 05/31/2024 8:04 AM INCOME TAX ADVISOR 05/31/2024 8:39 AM INCOME TAX ADVISOR Stephen Wagoner MD LAB BLOOD ORDERABLES Final Result [facility] [place] [address] * (ABNORMAL) CBC with auto differential (05/31/2024 8:04 AM INCOME TAX ADVISOR) [facility] WBC 11.6(H) 3.8 - 9.9 K/cumm Hgb 13.5 13.0 - 17.5 g/dL [facility] Hct 39.0 38.9 - 50.3 % [facility] Plt 285 150 - 400 K/cumm [facility] MPV 9.2 9.1 - 12.3 fL [facility] RBC 4.29(L) 4.30 - 5.80 M/cumm [facility] MCV 90.9 81.3 - 96.4 fL [facility] MCH 31.5 27.1 - 33.3 pg [facility] MCHC 34.6 32.3 - 35.7 g/dL [facility] RDW CV 12.8 11.1 - 14.9 % [facility] RDW SD 42.2 35.7 - 48.1 fL [facility] NRBC abs 0.00 0.00 - 0.01 K/cumm [facility] Blood 05/31/2024 8:04 AM INCOME TAX ADVISOR 05/31/2024 8:39 AM INCOME TAX ADVISOR Stephen Wagoner MD LAB BLOOD ORDERABLES Final Result Performing Organization Address City/[facility]/ZIP Co de Phone Number [facility] Department [place] [address] * Comprehensive metabolic panel (05/31/2024 8:04 AM INCOME TAX ADVISOR) [facility] Sodium 140 135 - 145 mmol/L Potassium, pl 3.6 3.3 - 4.9 mmol/L [facility] Chloride 107 97 - 110 mmol/L [facility] CO2 24 22 - 32 mmol/L [facility] Anion gap 9 2 - 15 mmol/L [facility] BUN 18 6 - 25 mg/dL [facility] Creatinine 1.14 0.80 - 1.30 mg/dL [facility] Glucose 95 70 - 199 mg/dL [facility] Comment: Interpretive Data Fasting glucose >/= 126 mg/dl is diagnostic for diabetes. Fasting is defined as no caloric intake for at least 8 hours. Fasting glucose between 100 mg/dl to 125 mg/dl is diagnostic of prediabetes. In a patient with classic symptoms of hyperglycemia or hyperglycemic crisis, a random glucose >/= 200 mg/dl is diagnostic for diabetes. In the absence of unequivocal hyperglycemia, results should be confirmed by repeat testing. The classification and Diagnosis of Diabetes Diabetes Care 2021; 46: S19-S40. Current interpretive data was last revised 2022. Calcium 8.7 8.5 - 10.3 mg/dL [facility] Bilirubin, total 0.7 0.1 - 1.2 mg/dL [facility] Protein, pl 6.6 6.5 - 8.5 g/dL [facility] Albumin 3.9 3.5 - 5.0 g/dL [facility] Alk phos 130 40 - 130 Units/L [facility] ALT 20 7 - 55 Units/L [facility] AST 16 10 - 50 Units/L [facility] Blood 05/31/2024 8:04 AM INCOME TAX ADVISOR 05/31/2024 8:39 AM INCOME TAX ADVISOR Stephen Wagoner MD LAB BLOOD ORDERABLES Final Result Performing Organization Address City/State/[facility] Co de Phone Number [facility] Department [place] [address] * CT Chest W Contrast (05/30/2024 8:11 PM INCOME TAX ADVISOR) Anatomical Region Laterality Modality Body N/A Computed Tomogra phy 05/31/2024 7:55 AM INCOME TAX ADVISOR Impressions 05/31/2024 7:55 AM INCOME TAX ADVISOR No CT cause to explain the patient's dyspnea. Electronically signed by: Tabatha Huff M.D. Narrative 05/31/2024 7:[address] of the chest with intravenous contrast CLINICAL HISTORY: Dyspnea unclear etiology TECHNIQUE: A CT of the chest was performed following uneventful intravenous administration of 69 mL of Optiray 350 COMPARISON: None FINDINGS: No supraclavicular, axillary or mediastinal adenopathy. Calcified LAD coronary artery is noted. No pleural effusion or pneumothorax. No worrisome or suspicious pulmonary nodules are noted. There is no evidence of pneumonia. Imaging of the upper abdomen demonstrates diminutive adrenal glands which could be due to exogenous steroid administration. A nonobstructing stone is noted in the upper pole the left kidney measuring 6 mm. Procedure Note Tabatha Huff MD - 05/31/2024 CT of the chest with intravenous contrast CLINICAL HISTORY: Dyspnea unclear etiology TECHNIQUE: A CT of the chest was performed following uneventful intravenous administration of 69 mL of Optiray 350 COMPARISON: None FINDINGS: No supraclavicular, axillary or mediastinal adenopathy. Calcified LAD coronary artery is noted. No pleural effusion or pneumothorax. No worrisome or suspicious pulmonary nodules are noted. There is no evidence of pneumonia. Imaging of the upper abdomen demonstrates diminutive adrenal glands which could be due to exogenous steroid administration. A nonobstructing stone is noted in the upper pole the left kidney measuring 6 mm. IMPRESSION: No CT cause to explain the patient's dyspnea. Electronically signed by: Tabatha Huff M.D. Epifanio Moreno MD IMG CT PROCEDURES Final Result * Troponin I high-sensitivity 6-hour (05/29/2024 8:37 PM INCOME TAX ADVISOR) Trop I hs <4 <=35 ng/L Comment: Interpretive Data For further hscTnI resources including the diagnostic algorithm and an aid in interpretation, copy and paste this link: https://bjhlab.testcatalog.org/show/[email or web address] Current Interpretive Data last revised 2019. Trop I hs delta 0 ng/L [facility] Trop I hs interp Insignificant [facility] H Blood 05/29/2024 8:37 PM INCOME TAX ADVISOR 05/29/2024 8:56 PM INCOME TAX ADVISOR us Diana Sneed MD LAB BLOOD ORDERABL ES Final Result Performing Organization Address City/[facility]/ZIP Co de Phone Number [facility] [place] [address] * Troponin I high-sensitivity series (baseline, 2hr, 4hr, 6hr) (05/29/2024 2:29 PM INCOME TAX ADVISOR) Trop I hs <4 <=35 ng/L Comment: Interpretive Data For further hscTnI resources including the diagnostic algorithm and an aid in interpretation, copy and paste this link: https://bjhlab.testcatalog.org/show/[email or web address] Current Interpretive Data last revised 2019. Blood 05/29/2024 2:29 PM INCOME TAX ADVISOR 05/29/2024 2:56 PM INCOME TAX ADVISOR Rudi Cash MD LAB BLOOD ORDERABLES Fi nal Result Performing Organization Address [facility] Co de Phone Number SHEILA [facility] Department [place] [address] * eGFR (05/29/2024 2:29 PM INCOME TAX ADVISOR) eGFR 65 >=60 mL/min/1. 73 m2 Comment: Interpretive Data Reference Interval Normal >/= 90 mL/min/1.73m2 Mildly decreased* 60 - 89 mL/min/1.73m2 Mildly to moderately decreased 45 - 59 mL/min/1.73m2 Moderately to severely decreased 30 - 44 mL/min/1.73m2 Severely decreased 15 - 29 mL/min/1.73m2 Kidney Failure < 15 mL/min/1.73m2 *Relative to young adult level Estimated glomerular filtration rate is determined by the 2020 CKD-EPI equation recommended by the National Kidney Foundation (A Unifying Approach to GFR Estimation: Recommendations of the NKF-ASK Task Force on Reassessing the Inclusion of Race in Diagnosing Kidney Disease, JASN 2020). The CKD-EPI equation should not be used for patients with unstable renal function and has not been validated in children and those over 70. Current interpretive data was last reviewed 2021. Blood 05/29/2024 2:29 PM INCOME TAX ADVISOR 05/29/2024 2:56 PM INCOME TAX ADVISOR us Diana Snede MD LAB BLOOD ORDERABL ES Final Result [facility] One [facility] [place] [address] * (ABNORMAL) Differential, auto (05/29/2024 2:29 PM INCOME TAX ADVISOR) Neutrophil abs 4.8 1.5 - 6.5 K/cumm Imm gran abs 0.0 0.0 - 0.1 K/cumm [facility] Lymphocyte abs 3.0 0.8 - 3.3 K/cumm [facility] Monocyte abs 0.7 0.2 - 0.8 K/cumm [facility] Eosinophil abs 1.2(H) 0.0 - 0.5 K/cumm [facility] Basophil abs 0.1 0.0 - 0.1 K/cumm [facility] Neutrophil pct 49.0 % [facility] Comment: Interpretive Data Percent cell count reference ranges are not reported, since discordance with absolute values may lead to misinterpretation of CBC data. Current Interpretive Data was last revised on 2017. Imm gran pct 0.3 % [facility] Comment: Interpretive Data Percent cell count reference ranges are not reported, since discordance with absolute values may lead to misinterpretation of CBC data. Current Interpretive Data was last revised on 2017. Lymphocyte pct 30.9 % [facility] Comment: Interpretive Data Percent cell count reference ranges are not reported, since discordance with absolute values may lead to misinterpretation of CBC data. Current Interpretive Data was last revised on 2017. Monocyte pct 7.2 % [facility] Comment: Interpretive Data Percent cell count reference ranges are not reported, since discordance with absolute values may lead to misinterpretation of CBC data. Current Interpretive Data was last revised on 2017. Eosinophil pct 12.0 % [facility] Comment: Interpretive Data Percent cell count reference ranges are not reported, since discordance with absolute values may lead to misinterpretation of CBC data. Current Interpretive Data was last revised on 2017. Basophil pct 0.6 % [facility] Comment: Interpretive Data Percent cell count reference ranges are not reported, since discordance with absolute values may lead to misinterpretation of CBC data. Current Interpretive Data was last revised on 2017. Blood 05/29/2024 2:29 PM INCOME TAX ADVISOR 05/29/2024 2:56 PM INCOME TAX ADVISOR us Diana Sneed MD LAB BLOOD ORDERABL ES Final Result [facility] Department [place] [address] * Pro B-type natriuretic peptide (05/29/2024 2:29 PM INCOME TAX ADVISOR) NT-proBNP <50 <=300 pg/mL Comment: Interpretive Comments: A. Dyspnea in Acute Care Setting All Ages: < 300 pg/ml, acute heart failure unlikely. < 50 yrs: 300 - 450 pg/ml, further investigation warranted. > 450 pg/ml, acute heart failure likely. 50 - 74 yrs: 300 - 900 pg/ml, further investigation warranted. > 900 pg/ml, acute heart failure likely . > or = 75 yrs: 450 - 1800 pg/ml, further investigation warranted. > 1800 pg/ml, acute heart failure likely. B. Non-acute Setting < 75 yrs < 125 pg/ml, rules out heart failure. > or = 125 pg/ml, further investigation warranted. > or = 75 yrs < 450 pg/ml, rules out heart failure. > or = 450 pg/ml, further investigation warranted. - Knowledge of each individual patient's NT-proBNP range may be more useful than using similar cut-points for every patient. Please note that marked elevations in NT-proBNP levels may be observed in state other than Left Ventricular Congestive Failure, including: acute coronary syndromes, right heart strain/failure (including pulmonary embolism and cor pulmonale), critical illness, renal failure, as well as advanced age. - References: 1. Ronald MONGE et.al. Eur Heart J. 2006:27:330-337. 2. Qian RW, Sherley AM. J. AM Miguel Angel Cardiol: Cardiovasc Imag. 2009;2: 216- 225. Interpretive Data Last Revised Date: 2017. Blood 05/29/2024 2:29 PM INCOME TAX ADVISOR 05/29/2024 2:56 PM INCOME TAX ADVISOR Rudi Cash MD LAB BLOOD ORDERABLES Fi nal Result [facility] [place] [address] * CBC with auto differential (05/29/2024 2:29 PM INCOME TAX ADVISOR) [facility] WBC 9.8 3.8 - 9.9 K/cumm Hgb 15.5 13.0 - 17.5 g/dL [facility] Hct 44.6 38.9 - 50.3 % [facility] Plt 304 150 - 400 K/cumm [facility] MPV 9.1 9.1 - 12.3 fL [facility] RBC 4.97 4.30 - 5.80 M/cumm [facility] MCV 89.7 81.3 - 96.4 fL [facility] MCH 31.2 27.1 - 33.3 pg [facility] MCHC 34.8 32.3 - 35.7 g/dL [facility] RDW CV 13.1 11.1 - 14.9 % [facility] RDW SD 42.5 35.7 - 48.1 fL [facility] NRBC abs 0.00 0.00 - 0.01 K/cumm [facility] Blood 05/29/2024 2:29 PM INCOME TAX ADVISOR 05/29/2024 2:56 PM INCOME TAX ADVISOR Rudi Cash MD LAB BLOOD ORDERABLES Fi nal Result Performing Organization Address City/[facility]/ZIP Co de Phone Number [facility] [place] [address] * (ABNORMAL) Comprehensive metabolic panel (05/29/2024 2:29 PM INCOME TAX ADVISOR) Sodium 141 135 - 145 mmol/L Potassium, pl 4.0 3.3 - 4.9 mmol/L [facility] Comment:Hemolyzed; Potassium value may be falsely elevated by as much as 0.3-0.5 mmol/L. Suggest redraw and reanalysis. Chloride 102 97 - 110 mmol/L [facility] CO2 26 22 - 32 mmol/L [facility] Anion gap 13 2 - 15 mmol/L [facility] BUN 16 6 - 25 mg/dL [facility] Creatinine 1.21 0.80 - 1.30 mg/dL [facility] Glucose 107 70 - 199 mg/dL [facility] Comment: Interpretive Data Fasting glucose >/= 126 mg/dl is diagnostic for diabetes. Fasting is defined as no caloric intake for at least 8 hours. Fasting glucose between 100 mg/dl to 125 mg/dl is diagnostic of prediabetes. In a patient with classic symptoms of hyperglycemia or hyperglycemic crisis, a random glucose >/= 200 mg/dl is diagnostic for diabetes. In the absence of unequivocal hyperglycemia, results should be confirmed by repeat testing. The classification and Diagnosis of Diabetes Diabetes Care 202; 46: S19-S40. Current interpretive data was last revised 2022. Calcium 9.4 8.5 - 10.3 mg/dL [facility] Bilirubin, total 0.8 0.1 - 1.2 mg/dL [facility] Protein, pl 7.4 6.5 - 8.5 g/dL [facility] Albumin 4.3 3.5 - 5.0 g/dL [facility] Alk phos 166(H) 40 - 130 Units/L [facility] ALT 28 7 - 55 Units/L [facility] AST 32 10 - 50 Units/L [facility] Comment:Hemolyzed; result ma y be falsely elevated Blood 05/29/2024 2:29 PM INCOME TAX ADVISOR 05/29/2024 2:56 PM INCOME TAX ADVISOR Rudi Cash MD LAB BLOOD ORDERABLES Fi nal Result [facility] [place] [address] * XR Chest PA Lateral 2 Views (05/29/2024 12:29 PM INCOME TAX ADVISOR) Anatomical Region Laterality Modality Body, Chest N/A Computed Radiogr aphy 05/29/2024 1:17 PM INCOME TAX ADVISOR Impressions 05/29/2024 1:17 PM INCOME TAX ADVISOR No priors are available for comparison. Peripheral linear opacities in the lung bases may represent bibasilar atelectasis or trace pulmonary edema. No focal consolidations, pleural effusions, or pneumothorax. Cardiomediastinal silhouette is within normal. Electronically signed by: Mely Catalan M.D. Narrative 05/29/2024 1:17 PM INCOME TAX ADVISOR EXAMINATION: 2 view chest radiograph Procedure Note Mely Catalan MD - 05/29/2024 EXAMINATION: 2 view chest radiograph IMPRESSION: No priors are available for comparison. Peripheral linear opacities in the lung bases may represent bibasilar atelectasis or trace pulmonary edema. No focal consolidations, pleural effusions, or pneumothorax. Cardiomediastinal silhouette is within normal. Electronically signed by: Mely Catalan M.D. Rudi Cash MD IMG XR PROCEDURES Final Result * ECG 12-LEAD (05/29/2024 12:02 PM INCOME TAX ADVISOR) Narrative [facility] - 05/29/2024 12:02 PM INCOME TAX ADVISOR Diana Sneed MD 05/29/2024 12:02 PM ECG 12 lead Date/Time: 05/29/2024 12:02 PM Performed by: Diana Sneed MD Authorized by: Diana Sneed MD Rate: ECG rate: 86 ECG rate assessment: normal Rhythm: Rhythm: sinus rhythm Ectopy: Ectopy: none QRS: QRS axis: Normal Conduction: Conduction: normal ST segments: ST segments: Normal Interpretation: Interpretation: normal Recommended Follow-up: Recommended follow up: further workup in the ED Procedure Note Diana Sneed MD - 05/29/2024 12:02 PM CST Procedure ECG 12 lead Date/Time: 05/29/2024 12:02 PM Performed by: Diana Sneed MD Authorized by: Diana Sneed MD Rate: ECG rate: 86 ECG rate assessment: normal Rhythm: Rhythm: sinus rhythm Ectopy: Ectopy: none QRS: QRS axis: Normal Conduction: Conduction: normal ST segments: ST segments: Normal Interpretation: Interpretation: normal Recommended Follow-up: Recommended follow up: further workup in the ED Diana Sneed MD 05/29/24 1202 Rudi Cash MD ECG ORDERABLES Final R esult [facility] * (ABNORMAL) Respiratory pathogen panel Nasopharyngeal (05/29/2024 11:59 AM INCOME TAX ADVISOR) Pathologist [facility] Influenza A RNA Not Detected Not Detected Influenza B RNA Not Detected Not Detected [facility] RSV RNA Not Detected Not Detected [facility] COVID-19 RNA Not Detected Not Detected [facility] Coronavirus 229E RNA Not Detected Not Detected [facility] Coronavirus HKU1 RNA Not Detected Not Detected [facility] Coronavirus NL63 RNA Not Detected Not Detected [facility] Coronavirus OC43 RNA Not Detected Not Detected [facility] Adenovirus DNA Not Detected Not Detected [facility] Metapneumovirus RNA Not Detected Not Detected [facility] Rhinovirus/Enterov irus RNA Not Detected Not Detected [facility] Parainfluenza 1 RNA Not Detected Not Detected [facility] Parainfluenza 2 RNA Not Detected Not Detected [facility] Parainfluenza 3 RNA Not Detected Not Detected [facility] Parainfluenza 4 RNA Detected(A) Not Detected [facility] B. pertussis DNA Not Detected Not Detected [facility] B. parapertussis DNA Not Detected Not Detected [facility] C. pneumoniae DNA Not Detected Not Detected [facility] M. pneumoniae DNA Not Detected Not Detected [facility] Nasopharyngeal 05/29/2024 11 :59 AM INCOME TAX ADVISOR 05/29/2024 12:17 PM INCOME TAX ADVISOR Narrative [facility] - 05/29/2024 1:13 PM INCOME TAX ADVISOR Is the Patient experiencing symptoms consistent with COVID?->Yes Surveillance testing for transplant patient?->No Interpretive Data The [employer] FilmArray Respiratory Panel (RP2.1) assay is a multiplexed real-time PCR based nucleic acid test capable of simultaneous qualitative detection and identification of multiple respiratory viral and bacterial nucleic acids, including SARS Coronavirus 2 (the causative agent of COVID-19). The following bacteria, viruses and virus subtypes can be identified using the FilmArray RP2.1 assay: Bordetella pertussis, Bordetella parapertussis, Chlamydia pneumoniae, Mycoplasma pneumoniae, Adenovirus, SARS Coronavirus 2, seasonal coronaviruses (Coronavirus HKU1, Coronavirus NL63, Coronavirus 229E, and Coronavirus OC43), Influenza A, Influenza A subtype H1, Influenza A subtype H3, Influenza A subtype 2009 H1, Influenza B, Metapneumovirus, Parainfluenza 1, Parainfluenza 2, Parainfluenza 3, Parainfluenza 4, RSV, Rhinovirus/Enterovirus. Due to the genetic similarity between human Rhinovirus and Enterovirus, the FilmArray RP2.1 assay cannot reliably differentiate them. Coronavirus OC43 may cross-react with some isolates of Coronavirus HKU1. A dual positive result may be due to cross-reactivity or may indicate a co- infection. The detection and identification of specific viral and bacterial nucleic acids from individuals exhibiting signs and symptoms of a respiratory infection aids in the diagnosis of respiratory infection if used in conjunction with other clinical and epidemiological information. The results of this test should not be used as the sole basis for diagnosis, treatment, or other management decisions. Negative results in the setting of a respiratory illness may be due to infection with pathogens that are not detected by this test. Positive results do not rule out infection/co-infection with other organisms. The agent(s) detected by the FilmArray RP2.1 may not be the definite cause of disease. Additional testing (lab, imaging, etc.) may be necessary when evaluating a patient with possible respiratory tract infection. The FilmArray RP2.1 assay has FDA clearance for testing of ARTIST WOODBLOCK swabs. The performance of additional specimen types has been assessed by the performing laboratory. The performance characteristics of this assay have been determined by [facility]ious [facility]. Current interpretive data was last revised on 22. 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
--- OUTSIDE RECORDS SUMMARY | 2024-07-25 10:25 | XMS_ITS ---
Author Organization [facility] Address [address] [place] [address] Care Team Providers Care Area Relief Pilot Name Role Phone Dr. Dilip Alfonso Primary Care Provider Negrita Duque Unavailable [phone] Allergies Allergen (clinical drug ingredient) Drug/Non Drug Allergy documented on EMR Reaction Allergy Type Onset Date Status Sudafed Unknown Drug Allergy Active REASON FOR VISIT Daily welts, provoked by scratching for over a year. Doing well on new medication regimen., Chroniclower airways symptoms - former smoker - with hospitalization in [place] in 01/2024. On Trelegy and albuterol.. Recently hospitalized for respiratory failure in early Apr- followed by Dr. Brock- Medications Medication SIG (Take, Route, Frequency, Duration) Notes Start Date End Date Status Montelukast Sodium 10 MG TAKE 1 TABLET B Y MOUTH AT NIGHT for 90 Active Montelukast Sodium 10 MG 1 tablet Orally at night for 30 days Active Albuterol Sulfate HFA 108 (90 Base) MCG/ACT Inhalation for 16 Days Active Famotidine 40 MG 1 tablet Orally Twic e a day for 30 days Active Trelegy Ellipta 100-62.5-25 MCG/ACT INHALE 1 PUFF BY MOUTH DAILY Inhalation for 30 Days Active Lisinopril 40 MG 1 tablet Orally Once a day Not-Taking Omeprazole 20 MG 1 capsule 1/2 to 1 h our before morning meal Orally Once a day Active Atorvastatin Calcium 20 MG 1 tablet Orally Once a day Active amLODIPine Besylate 10 MG Oral for 90 Days Active Cetirizine HCl 10 MG 1 tablet Orally Twi ce a day for 30 days Active Famotidine 40 MG TAKE 1 TABLET BY TIMOTHY TH TWICE DAILY for 90 Active Social History Tobacco Use: Social History Observation Description Date Details (start date - stop date) Former Smoker NA - NA Tobacco Control (Standard) Question Answer Notes Tobacco use: Former smoker Vital Signs Blood pressure systolic 144 mm Hg 05/03/19 25 Blood pressure diastolic 85 mm Hg 025 Height 71 in 05/03/2024 Weight 195.0 lbs 05/03/2024 BMI 27.19 kg/m2 05/03/2024 Oximetry 98 % 05/03/2024 Encounters Encounter Location Date Provider Diagnosis [facility] [address] [place] [address] 05/03/2024 Negrita Cobb Other urticaria L50. 8 ; Hypertrophy of nasal turbinates J34.3 and Chronic cough R05.3 Assessments Encounter Date Diagnosis (ICD Code) Assessment Notes Treatment Notes Treatment Clinical Notes Section Notes 05/03/2024 Other urticaria (ICD-10 - L50.8) Dominic [...] 4 weeks for E&M and lab review 05/03/2024 Hypertrophy of nasal turbinates (ICD-10 - J34.3) Mild upper airway symptoms. YsX=802 UIJ=163 likely atopic -check allegy labs as she is on high dose anthistamines 05/03/2024 Chronic cough (ICD-10 - R05.3) Recently established with Dr. Brock. Does not want to duplicate breathing tests.Hospitalize d again in April -JvO=515 EPS=279 likely has atopic asthma. Will request pulmonary records and breathing test. Consider biologic -Continue trelegy and albuterol. -no wheezing on exam today -had recent PFT, decline alis here. Needed if we start biologic 05/03/2024 Other Plan Of Treatment Medication Medication Name Sig Start Date Stop Date Notes Montelukast Sodium 10 MG 1 tablet Orally at night for 30 days Famotidine 40 MG 1 tablet Orally Twic e a day for 30 days Cetirizine HCl 10 MG 1 tablet Orally Twi ce a day for 30 days Treatment Notes Assessment Notes Other urticaria Dominic [...] 4 weeks for E&M and lab review Hypertrophy of nasal turbinates Mild upper airway symptoms. IpJ=581 LNU=228 likely atopic -check allegy labs as she is on high dose anthistamines Chronic cough Recently established with Dr. Brock. Does not want to duplicate breathing tests.Hospitalized again in April -GrR=055 FSX=709 likely has atopic asthma. Will request pulmonary records and breathing test. Consider biologic -Continue trelegy and albuterol. -no wheezing on exam today -had recent PFT, decline alis here. Needed if we start biologic Pending Test Test Name Order Date RESPIRATORY ALLERGY PROFILE REGION VIII: [place], [place] 05/03/2024 TRYPTASE 05/03/2024 CBC (INCLUDES DIFF/PLT) 05/03/2024 c-KIT D816V MUTATION ANALYSIS (MASTOCYTO SIS) 05/03/2024 Next Appt Details Follow Up: 4 Weeks, Reason: Evaluation and Management Provider Name:Negrita Cobb , 08/16/2024 03:30:00 PM, [address], [place], [address], Progress Notes * Jeferson COMERDOB: [birth year] (68 yo M)Acc No.[id number]:05/03/2024 Progress Notes Patient: Jeferson US Provider: Britton Cobb PA-C :1955 A ge:68 Y S ex:Male Date:05/03/2024 Address:[address] [place] [address] [id number] Pcp:Dr. Dilip Alfonso Subjective: * Chief Complaints: * D aily welts, provoked by scratching for over a year. Doing well on new medication regimen.Chronic lower airways symptoms - former smoker - with hospitalization in [place] in 01/2024. On Trelegy and albuterol.. Recently hospitalized for respiratory failure in early Apr- followed by Dr. Brock- * HPI: * Introduction: I had the [...] and COPD exacerbation while on vacation to [place] in 01/2024. 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 . He denies [...] stic Procedure: c hronic cough 01/2024Oxygen levels 04/2024 * Family History: F ather: No. M [...] often do you perform this exercise? w del A re any of the following personal [...] worked in any of the following: f [employer],farm,[employer] Have you had any job with high [...] of carpet? 1 0 Do you have [id number] carpeting? Y es What is the age [...] INHALE 1 PUFF BY MOUTH DAILY Inhalation Cetirizine HCl 10 MG Tablet 1 tablet Orally Twice a day Montelukast Sodium 10 MG Tablet TAKE 1 TABLET BY MOUTH AT NIGHT Famotidine 40 MG Tablet TAKE 1 TABLET BY MOUTH TWICE DAILY Taking Omeprazole 20 MG Capsule Delayed Release [...] 1 PUFF BY MOUTH DAILY Inhalation Taking Cetirizine HCl 10 MG Tablet 1 tablet Orally Twice a day Taking Montelukast Sodium 10 MG Tablet TAKE 1 TABLET BY MOUTH AT NIGHT Taking Famotidine 40 MG Tablet TAKE 1 TABLET BY MOUTH TWICE DAILY Not-Taking/PRNLisinopril 40 MG Tablet 1 tablet Orally Once a day Medication List reviewed and reconciled with the patientNot- Taking/PRN Lisinopril 40 MG Tablet 1 tablet Orally Once a day Medication List reviewed and reconciled with the patient * Allergies: S paul[Allergies Verified] Objective: * Vitals: B P:144/85mm Hg, HR:100/min, Pulse Oximetry:98%, CU-Q2oL: 31, UAS7: 8, Ht: 71 in, Wt: 195.0 lbs, BMI:27.19Index. * P ast Orders: L ab:-Chronic Urticaria -- Anti-IgE ([id number]) (Order Date - 03/15/2024) (Collection Date & Time - 03/15/2024 08:27 AM) Result: Normal Value Reference Range Anti-IgE* Normal Normal - Notes: Negrita CobbJessy 03/25/2024 01:42:23 PM YEAST PUSHER > L ab:-Tryptase ([id number]) (Order Date - 03/15/2024) (Collection Date & Time - 03/15/2024 08:27 AM) Result: Abnormal Value Reference Range Tryptase 29.0 H 2.2-13.2 - ug/L Notes: Negrita Cobb 03/25/2024 01:42:01 PM YEAST PUSHER >recheck with c-kit L ab:-CU Panel ([id number]) (Order Date - 03/15/2024) (Collection Date & Time - 03/15/2024 08:27 AM) Result: Abnormal Value Reference Range Thyroglobulin Antibody <1.0 0.0-0.9 - IU/mL Bacteria None seen None seen/Few - Casts None seen None seen - /lpf Epithelial Cells (non renal) None seen 0 - 10 - /h pf RBC None seen 0 - 2 - /hpf WBC 0-5 0 - 5 - /hpf Calcium, Serum 9.5 8.6-10.2 - mg/dL Glucose, Serum 103 H 70-99 - mg/dL BUN 18 8-27 - mg/dL Protein, Total, Serum 6.4 6.0-8.5 - g/dL Albumin, Serum 4.2 3.9-4.9 - g/dL Bilirubin, Total 0.6 0.0-1.2 - mg/dL Alkaline Phosphatase, S 130 H 44-121 - IU/L AST (SGOT) 16 0-40 - IU/L Potassium, Serum 4.9 3.5-5.2 - mmol/L Sodium, Serum 141 134-144 - mmol/L Chloride, Serum 103 96-106 - mmol/L Creatinine, Serum 1.53 H 0.76-1.27 - mg/dL ALT (SGPT) 19 0-44 - IU/L Carbon Dioxide, Total 22 20-29 - mmol/L Immunoglobulin A, Qn, Serum 221 61-437 - mg/ dL WBC 9.5 3.4-10.8 - x10E3/uL RBC 4.57 4.14-5.80 - x10E6/uL Hemoglobin 14.7 13.0-17.7 - g/dL Hematocrit 44.7 37.5-51.0 - % Sedimentation Rate-Westergren 2 0-30 - mm/ hr RA Latex Turbid. <10.0 <14.0 - IU/mL Thyroid Peroxidase (TPO) Ab <9 0-34 - IU/mL BUN/Creatinine Ratio 12 10-24 - Globulin, Total 2.2 1.5-4.5 - g/dL Microscopic Examination See below: - Urine-Color Yellow Yellow - Appearance Clear Clear - Specific [place] 1.017 1.005-1.030 - pH 5.5 5.0-7.5 - Glucose Negative Negative - Protein Negative Negative/Trace - Occult Blood Negative Negative - Bilirubin Negative Negative - Urobilinogen,Semi-Qn 0.2 0.2-1.0 - mg/dL Nitrite, Urine Negative Negative - Ketones Negative Negative - WBC Esterase Trace A Negative - MCV 98 H 79-97 - fL MCH 32.2 26.6-33.0 - pg MCHC 32.9 31.5-35.7 - g/dL Neutrophils 45 Not Estab. - % Lymphs 32 Not Estab. - % Monocytes 11 Not Estab. - % Eos 10 Not Estab. - % Basos 1 Not Estab. - % Platelets 326 150-450 - x10E3/uL Neutrophils (Absolute) 4.4 1.4-7.0 - x10E3/u L Lymphs (Absolute) 3.0 0.7-3.1 - x10E3/uL Monocytes(Absolute) 1.0 H 0.1-0.9 - x10E3/uL Eos (Absolute) 0.9 H 0.0-0.4 - x10E3/uL Baso (Absolute) 0.1 0.0-0.2 - x10E3/uL RDW 12.6 11.6-15.4 - % t-Transglutaminase (tTG) IgA <2 0-3 - U/mL t-Transglutaminase (tTG) IgG <2 0-5 - U/mL Endomysial Antibody IgA Negative Negative - ELADIO Direct Negative Negative - Immunoglobulin E, Total 879 H 6-495 - IU/mL TSH 3.050 0.450-4.500 - uIU/mL Immature Granulocytes 1 Not Estab. - % Immature Grans (Abs) 0.1 0.0-0.1 - x10E3/uL Deamidated Gliadin Abs, IgA 4 0-19 - units Deamidated Gliadin Abs, IgG 2 0-19 - units eGFR 49 L >59 - mL/min/1.73 Notes: Negrita Cobb 03/25/2024 01:28:56 PM YEAST PUSHER >high Cr low GFr. need to know if there is any hx of kidney disease? IgE elevated. Alk phos elevated, eos are elevated. Some of this PCP needs to manage L ab:-Chronic Urticaria -- Autoimmune IgE receptor antibody ([id number]) (Order Date - 03/15/2024) (Collection Date & Time - 03/15/2024 08:27 AM) Result: Normal Value Reference Range CU Index 5.9 <10 - Notes: Negrita Cobb 03/25/2024 01:41:45 PM YEAST PUSHER > * Examination: G eneral examination: General appearance: [...] no murmurs, no rubs, no gallops. Lungs: c lear to auscultation and percussion in all lung koch, no wheezes or crackles. Neurologic exam: u nremarkable. Skin: n ormal, no rash, dermatographism, urticaria, angioedema. Peripheral pulses: n ormal (2+) bilaterally. Back: n ormal. Extremities: n ormal ROM, no clubbing, no cyanosis, no edema. Assessment: * Assessment: 1. O ther urticaria - L50.8 (Primary) 2 . H ypertrophy of nasal turbinates - J34.3 3 . C hronic cough - R05.3 Plan: * Treatment: 2. H ypertrophy of nasal turbinates L AB: RESPIRATORY ALLERGY PROFILE REGION VIII: [place], [place] Notes: Mild upper airway symptoms. EuC=605 XUD=116 likely atopic -check allegy labs as she is on high dose anthistamines 3. C hronic cough Notes: Recently established with Dr. Brock. Does not want to duplicate breathing tests.Hospitalized again in April -WbR=166 DZU=258 likely has atopic asthma. Will request pulmonary records and breathing test. Consider biologic -Continue trelegy and albuterol. -no wheezing on exam today -had recent PFT, decline alis here. Needed if we start biologic * Procedure Codes: 9 6160 PT-FOCUSED HLTH RISK [id number] DOC MEDS VERIFIED W/PT OR RE * Preventive Medicine: Counseling: M edication instruction: W atch for side effects of prescribed medications. E ducation: H EDDIE EDUCATION:, Avoid opioid-containing analgesics, Avoid excessive alcohol use, Avoid NSAIDs (non-steroidal anti-inflammatories) - list provided. P atient education material sent to portal? Y es * Follow Up: 4 Weeks (Reason: Evaluation and Management) * Billing Information: * Visit Code: 42552 Office Visit, Est Pt., Level 4. Modifiers: 25 * Procedure Codes: 05156 PT-FOCUSED HLTH RISK ASSMT. G8427 DOC MEDS VERIFIED W/PT OR RE. * T PUSHER Sign off status: Completed true * Provider: Britton Cobb PA-C Date: 0 05/03/2024 Generated for Jyotsna negrete/Aron/Wayneitting on: 0 07/25/2024 [...] and COPD exacerbation while on vacation to [place] in 01/2024. 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 . He denies [...] murmu rs, no rubs, no gallops Lungs: clear to auscultatio n and percussion in all lung koch, no wheezes or crackles Extremities: normal ROM, no clubb ing, no cyanosis, no edema General appearance: pleasant, well-devel oped, well-nourished Skin: normal, no rash, meir matographism, urticaria, angioedema Neurologic exam: unremarkable Oral cavity: normal, no lesions Peripheral pulses: normal (2+) bilatera lly Back: normal
--- OUTSIDE RECORDS SUMMARY | 2024-07-25 10:25 | XMS_ITS | Referral Summary ---
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 Name Role Phone No, Physician Primary Care Provider [phone] Encounters Date Type Department Care Team Description 07/24/2024 Orders Only [facility] Scheduling [address] [place] [address] Suleiman Antoine MD Chronic obstructive pulmonary disease with (acute) exacerbation (HCC) (Primary Dx) 06/04/2024 SHOP/CHAP Initial Outreach [facility] [address] [place] [address] Lilian Ribera, [facility] 06/04/2024 SHOP/CHAP Initial Eligibility Review [facility] [address] [place] [address] Tuyet Falk, [employer] ATTENDANT 05/29/2024 12:46 PM CREATIVE ENGAGEMENT DIRECTOR - 06/02/2024 11:45 AM CREATIVE ENGAGEMENT DIRECTOR Hospital Encounter [address] [id number] Rudi Cash MD Cohn, MD Mary Aguayo, MD Shruthi Tinajero, MD Josh Ogden, MD Ciaran Mckeon, Stephen Vincent MD Shortness of breath (Primary Dx); Parainfluenza; Hypoxia; Chronic obstructive pulmonary disease with acute exacerbation (HCC) Discharge Disposition: Discharge to home or self care from Last 3 Months Allergies No known active allergies Medications cetirizine [...] Date Diagnosed Date Shortness of breath 05/29/2024 Immunizations Immunization Administration Dates Next Due Influenza, Trivalent, High D ose, Split, Preservative Free, Intramuscular 06/02/2024,06/01/2024(Deferred: - please give flu shot this morning 06/01) Social History Tobacco Use Types Packs/Day Years Used Date Smoking Tobacco: Former Cigarettes Q uit: 1987 Tobacco Cessation:Counseling Given: Not Answered [facility] Utilities Answer Date Recorded In the past 12 months has [employer], [place] [place], oil, or water [employer] threatened to shut off services in your [...] often do you attend chur ch or temple services? Never 06/04/2024 Do you belong to any clubs o r organizations such as tenriism groups, unions, fraternal or athletic groups, or [...] any time in the past 12 m [facility], were you homeless or living in a fci (including now)? No 06/04/2024 Personal Safety Answer Date Recorded Have you ever been in or are you currently in a harmful physical or emotional relationship or is someone making you feel afraid or unsafe? Denies 05/29/2024 Sex and Gender Information Value Date Recorded Sex Assigned at Not on file Legal Sex Male 11:19 AM CREATIVE ENGAGEMENT DIRECTOR Gender Identity Not on file Sexual Orientation Not on file Last Filed Vital Signs Vital Sign Reading Time Taken Comments Blood Pressure 156/78 06/02/2024 8:04 AM CREATIVE ENGAGEMENT DIRECTOR Pulse 102 06/02/2024 8:04 AM CREATIVE ENGAGEMENT DIRECTOR Temperature 36.4 C (97.5 F) 06/02/2024 8:04 AM CREATIVE ENGAGEMENT DIRECTOR Respiratory Rate 18 06/02/2024 8:04 AM CREATIVE ENGAGEMENT DIRECTOR Oxygen Saturation 97% 06/02/2024 11: 16 AM CREATIVE ENGAGEMENT DIRECTOR Inhaled Oxygen Concentration - - Weight 86.1 kg (189 lb 13.1 oz) 05/30/2024 6:59 PM CREATIVE ENGAGEMENT DIRECTOR Height 180.3 cm (5' 11 ) 05/30/2024 6:59 PM CREATIVE ENGAGEMENT DIRECTOR Body Mass Index 26.47 05/30/2024 6:59 PM CREATIVE ENGAGEMENT DIRECTOR Plan of Treatment Not on file Procedures Procedure Name Priority Date/Time Associated Diagnosis Comments POCT GLUCOSE DEVICE Routine 06/02/2024 1 1:28 AM CREATIVE ENGAGEMENT DIRECTOR POCT GLUCOSE DEVICE Routine 06/02/2024 7 :21 AM CREATIVE ENGAGEMENT DIRECTOR EGFR Routine 06/01/2024 11:12 PM CREATIVE ENGAGEMENT DIRECTOR DIFFERENTIAL AUTO Routine 06/01/2024 11: 12 PM CREATIVE ENGAGEMENT DIRECTOR CBC WITH AUTO DIFFERENTIAL Routine 06/01/2024 11:12 PM CREATIVE ENGAGEMENT DIRECTOR COMPREHENSIVE METABOLIC PANEL Routine 06/01/2024 11:12 PM CREATIVE ENGAGEMENT DIRECTOR POCT GLUCOSE DEVICE Routine 06/01/2024 7 :48 PM CREATIVE ENGAGEMENT DIRECTOR POCT GLUCOSE DEVICE Routine 06/01/2024 5 :20 PM CREATIVE ENGAGEMENT DIRECTOR POCT GLUCOSE DEVICE Routine 06/01/2024 1 1:20 AM CREATIVE ENGAGEMENT DIRECTOR POCT GLUCOSE DEVICE Routine 06/01/2024 7 :13 AM CREATIVE ENGAGEMENT DIRECTOR EGFR Routine 05/31/2024 9:21 PM CREATIVE ENGAGEMENT DIRECTOR DIFFERENTIAL AUTO Routine 05/31/2024 9:2 1 PM CREATIVE ENGAGEMENT DIRECTOR CBC WITH AUTO DIFFERENTIAL Routine 05/31/2024 9:21 PM CREATIVE ENGAGEMENT DIRECTOR COMPREHENSIVE METABOLIC PANEL Routine 05/31/2024 9:21 PM CREATIVE ENGAGEMENT DIRECTOR POCT GLUCOSE DEVICE Routine 05/31/2024 7 :53 PM CREATIVE ENGAGEMENT DIRECTOR POCT GLUCOSE DEVICE Routine 05/31/2024 4 :22 PM CREATIVE ENGAGEMENT DIRECTOR POCT GLUCOSE DEVICE Routine 05/31/2024 1 1:30 AM CREATIVE ENGAGEMENT DIRECTOR EGFR Routine 05/31/2024 8:04 AM CREATIVE ENGAGEMENT DIRECTOR DIFFERENTIAL AUTO Routine 05/31/2024 8:0 4 AM CREATIVE ENGAGEMENT DIRECTOR CBC WITH AUTO DIFFERENTIAL Routine 05/31/2024 8:04 AM CREATIVE ENGAGEMENT DIRECTOR COMPREHENSIVE METABOLIC PANEL Routine 05/31/2024 8:04 AM CREATIVE ENGAGEMENT DIRECTOR CT CHEST W CONTRAST IP Routine 05/30/2024 8 :11 PM CREATIVE ENGAGEMENT DIRECTOR TROPONIN I HIGH-SENSITIVITY 6-HOUR Timed 05/29/2024 8:37 PM CREATIVE ENGAGEMENT DIRECTOR EGFR STAT 05/29/2024 2:29 PM CREATIVE ENGAGEMENT DIRECTOR DIFFERENTIAL AUTO STAT 05/29/2024 2:2 9 PM CREATIVE ENGAGEMENT DIRECTOR PRO B-TYPE NATRIURETIC PEPTIDE STAT 05/29/2024 2:29 PM CREATIVE ENGAGEMENT DIRECTOR TROPONIN I HIGH-SENSITIVITY SERIES (BASELINE, 2HR, 4HR, 6HR) STAT 05/29/2024 2:29 PM CREATIVE ENGAGEMENT DIRECTOR CBC WITH AUTO DIFFERENTIAL STAT 05/29/2024 2:29 PM CREATIVE ENGAGEMENT DIRECTOR COMPREHENSIVE METABOLIC PANEL STAT 05/29/2024 2:29 PM CREATIVE ENGAGEMENT DIRECTOR XR CHEST PA LATERAL 2 VIEWS ED 05/29/2024 12:29 PM CREATIVE ENGAGEMENT DIRECTOR ECG 12-LEAD STAT 05/29/2024 12:02 PM CREATIVE ENGAGEMENT DIRECTOR RESPIRATORY PATHOGEN PANEL Routine 05/29/2024 11:59 AM CREATIVE ENGAGEMENT DIRECTOR from Last 3 Months Results * POCT glucose (06/02/2024 11:28 AM CREATIVE ENGAGEMENT DIRECTOR) Glucose, POC 122 70 - 199 mg/dL Blood 06/02/2024 11:2 8 AM CREATIVE ENGAGEMENT DIRECTOR 06/02/2024 11:28 AM CREATIVE ENGAGEMENT DIRECTOR Stephen Wagoner MD LAB POCT ORDERABLES - DEVIC E Final Result Performing Organization Address City/[facility] Co de Phone Number [facility] [place] [address] * POCT glucose (06/02/2024 7:21 AM CREATIVE ENGAGEMENT DIRECTOR) [facility] Glucose, POC 103 70 - 199 mg/dL Blood 06/02/2024 7:21 AM CREATIVE ENGAGEMENT DIRECTOR 06/02/2024 7:21 AM CREATIVE ENGAGEMENT DIRECTOR Stephen Wagoner MD LAB POCT ORDERABLES - DEVIC E Final Result Performing Organization Address City/[facility] Co de Phone Number [facility] ([facility] [place] [address] * eGFR (06/01/2024 11:12 PM CREATIVE ENGAGEMENT DIRECTOR) eGFR 72 >=60 mL/min/1. 73 m2 Comment: [...] of Race in Diagnosing Kidney Disease, JASN 202). The CKD-EPI equation should not be used for patients with unstable renal function and has not been validated in children and those over 70. Current interpretive data was last reviewed 2021. Blood 06/01/2024 11:1 2 PM CREATIVE ENGAGEMENT DIRECTOR 06/02/2024 12:44 AM CREATIVE ENGAGEMENT DIRECTOR Stephen Wagoner MD LAB BLOOD ORDERABLES Final Result Performing Organization Address City/State/[facility] Co de Phone Number [facility] Department [place] [address] * (ABNORMAL) Differential, auto (06/01/2024 11:12 PM CREATIVE ENGAGEMENT DIRECTOR) Neutrophil abs 9.7(H) 1.5 - 6.5 K/cumm Imm gran abs 0.1 0.0 - 0.1 K/cumm [facility] Lymphocyte abs 2.1 0.8 - 3.3 K/cumm [facility] Monocyte abs 1.1(H) 0.2 - 0.8 K/cumm [facility] Eosinophil abs 0.0 0.0 - 0.5 K/cumm [facility] Basophil abs 0.1 0.0 - 0.1 K/cumm [facility] Neutrophil pct 73.9 % [facility] Comment: Interpretive Data Percent cell count reference ranges are not reported, since discordance with absolute values may lead to misinterpretation of CBC data. Current Interpretive Data was last revised on 2017. Imm gran pct 0.7 % [facility] Comment: Interpretive Data Percent cell count reference ranges are not reported, since discordance with absolute values may lead to misinterpretation of CBC data. Current Interpretive Data was last revised on 2017. Lymphocyte pct 15.9 % [facility] Comment: Interpretive Data Percent cell count reference ranges are not reported, since discordance with absolute values may lead to misinterpretation of CBC data. Current Interpretive Data was last revised on 2017. Monocyte pct 8.7 % [facility] Comment: Interpretive Data Percent cell count reference ranges are not reported, since discordance with absolute values may lead to misinterpretation of CBC data. Current Interpretive Data was last revised on 2017. Eosinophil pct 0.3 % [facility] Comment: Interpretive Data Percent cell count reference ranges are not reported, since discordance with absolute values may lead to misinterpretation of CBC data. Current Interpretive Data was last revised on 2017. Basophil pct 0.5 % [facility] Comment: Interpretive Data Percent cell count reference ranges are not reported, since discordance with absolute values may lead to misinterpretation of CBC data. Current Interpretive Data was last revised on 2017. Blood 06/01/2024 11:1 2 PM CREATIVE ENGAGEMENT DIRECTOR 06/02/2024 12:43 AM CREATIVE ENGAGEMENT DIRECTOR us Stephen Wagoner MD LAB BLOOD ORDERABLES Final Result [facility] Department [place] [address] * (ABNORMAL) CBC with auto differential (06/01/2024 11:12 PM CREATIVE ENGAGEMENT DIRECTOR) WBC 13.2(H) 3.8 - 9.9 K/cumm Hgb 13.6 13.0 - 17.5 g/dL [facility] Hct 39.2 38.9 - 50.3 % [facility] Plt 350 150 - 400 K/cumm [facility] MPV 9.6 9.1 - 12.3 fL [facility] RBC 4.37 4.30 - 5.80 M/cumm [facility] MCV 89.7 81.3 - 96.4 fL [facility] MCH 31.1 27.1 - 33.3 pg [facility] MCHC 34.7 32.3 - 35.7 g/dL [facility] RDW CV 12.7 11.1 - 14.9 % [facility] RDW SD 41.9 35.7 - 48.1 fL [facility] NRBC abs 0.00 0.00 - 0.01 K/cumm [facility] Blood 06/01/2024 11:1 2 PM CREATIVE ENGAGEMENT DIRECTOR 06/02/2024 12:43 AM CREATIVE ENGAGEMENT DIRECTOR Stephen Wagoner MD LAB BLOOD ORDERABLES Final Result [facility] Department [place] [address] * Comprehensive metabolic panel (06/01/2024 11:12 PM CREATIVE ENGAGEMENT DIRECTOR) Sodium 140 135 - 145 mmol/L Potassium, pl 4.2 3.3 - 4.9 mmol/L [facility] Chloride 103 97 - 110 mmol/L [facility] CO2 22 22 - 32 mmol/L [facility] Anion gap 15 2 - 15 mmol/L [facility] BUN 24 6 - 25 mg/dL [facility] Creatinine 1.12 0.80 - 1.30 mg/dL [facility] Glucose 177 70 - 199 mg/dL [facility] Comment: Interpretive Data Fasting glucose >/= 126 [...] 2022. Calcium 9.6 8.5 - 10.3 mg/dL [facility] Bilirubin, total 0.5 0.1 - 1.2 mg/dL [facility] Protein, pl 6.9 6.5 - 8.5 g/dL [facility] Albumin 4.0 3.5 - 5.0 g/dL [facility] Alk phos 130 40 - 130 Units/L [facility] ALT 22 7 - 55 Units/L [facility] AST 22 10 - 50 Units/L [facility] Blood 06/01/2024 11:1 2 PM CREATIVE ENGAGEMENT DIRECTOR 06/02/2024 12:44 AM CREATIVE ENGAGEMENT DIRECTOR Stephen Wagoner MD LAB BLOOD ORDERABLES Final Result Performing Organization Address City/[facility] Co de Phone Number [facility] ([facility] [place] [address] * POCT glucose (06/01/2024 7:48 PM CREATIVE ENGAGEMENT DIRECTOR) Glucose, POC 159 70 - 199 mg/dL Blood 06/01/2024 7:48 PM CREATIVE ENGAGEMENT DIRECTOR 06/01/2024 7:48 PM CREATIVE ENGAGEMENT DIRECTOR Stephen Wagoner MD LAB POCT ORDERABLES - DEVIC E Final Result Performing Organization Address City/[facility] Co de Phone Number [facility] ([facility] [place] [address] * POCT glucose (06/01/2024 5:20 PM CREATIVE ENGAGEMENT DIRECTOR) Glucose, POC 189 70 - 199 mg/dL Blood 06/01/2024 5:20 PM CREATIVE ENGAGEMENT DIRECTOR 06/01/2024 5:20 PM CREATIVE ENGAGEMENT DIRECTOR Stephen Wagoner MD LAB POCT ORDERABLES - DEVIC E Final Result Performing Organization Address [facility] Co [place] [address] * POCT glucose (06/01/2024 11:20 AM CREATIVE ENGAGEMENT DIRECTOR) Glucose, POC 150 70 - 199 mg/dL Blood 06/01/2024 11:2 0 AM CREATIVE ENGAGEMENT DIRECTOR 06/01/2024 11:20 AM CREATIVE ENGAGEMENT DIRECTOR Stephen Wagoner MD LAB POCT ORDERABLES - DEVIC E Final Result Performing Organization Address City/[facility] Co de Phone Number [facility] [place] [address] * POCT glucose (06/01/2024 7:13 AM CREATIVE ENGAGEMENT DIRECTOR) Glucose, POC 83 70 - 199 mg/dL Blood 06/01/2024 7:13 AM CREATIVE ENGAGEMENT DIRECTOR 06/01/2024 7:13 AM CREATIVE ENGAGEMENT DIRECTOR Stephen Wagoner MD LAB POCT ORDERABLES - DEVIC E Final Result Performing Organization Address [facility] de Phone Number [facility] [place] [address] * eGFR (05/31/2024 9:21 PM CREATIVE ENGAGEMENT DIRECTOR) eGFR 70 >=60 mL/min/1. 73 m2 Comment: [...] last reviewed 2021. Blood 05/31/2024 9:21 PM CREATIVE ENGAGEMENT DIRECTOR 05/31/2024 11:01 PM CREATIVE ENGAGEMENT DIRECTOR us Stephen Wagoner MD LAB BLOOD ORDERABLES Final Result [facility] Department [place] [address] * (ABNORMAL) Differential, auto (05/31/2024 9:21 PM CREATIVE ENGAGEMENT DIRECTOR) Neutrophil abs 11.3(H) 1.5 - 6.5 K/cumm Imm gran abs 0.1 0.0 - 0.1 K/cumm [facility] Lymphocyte abs 3.0 0.8 - 3.3 K/cumm [facility] Monocyte abs 1.3(H) 0.2 - 0.8 K/cumm [facility] Eosinophil abs 0.0 0.0 - 0.5 K/cumm [facility] Basophil abs 0.1 0.0 - 0.1 K/cumm [facility] Neutrophil pct 71.8 % [facility] Comment: Interpretive Data Percent cell count reference ranges are not reported, since discordance with absolute values may lead to misinterpretation of CBC data. Current Interpretive Data was last revised on 2017. Imm gran pct 0.6 % [facility] Comment: Interpretive Data Percent cell count reference ranges are not reported, since discordance with absolute values may lead to misinterpretation of CBC data. Current Interpretive Data was last revised on 2017. Lymphocyte pct 18.7 % [facility] Comment: Interpretive Data Percent cell count reference ranges are not reported, since discordance with absolute values may lead to misinterpretation of CBC data. Current Interpretive Data was last revised on 2017. Monocyte pct 8.3 % [facility] Comment: Interpretive Data Percent cell count reference ranges are not reported, since discordance with absolute values may lead to misinterpretation of CBC data. Current Interpretive Data was last revised on 2017. Eosinophil pct 0.2 % [facility] Comment: Interpretive Data Percent cell count reference ranges are not reported, since discordance with absolute values may lead to misinterpretation of CBC data. Current Interpretive Data was last revised on 2017. Basophil pct 0.4 % [facility] Comment: Interpretive Data Percent cell count reference ranges are not reported, since discordance with absolute values may lead to misinterpretation of CBC data. Current Interpretive Data was last revised on 2017. Blood 05/31/2024 9:21 PM CREATIVE ENGAGEMENT DIRECTOR 05/31/2024 11:02 PM CREATIVE ENGAGEMENT DIRECTOR Stephen Wagoner MD LAB BLOOD ORDERABLES Final Result Performing Organization Address City/[facility]/ZIP Co de Phone Number [facility] ([facility] [place] [address] * (ABNORMAL) CBC with auto differential (05/31/2024 9:21 PM CREATIVE ENGAGEMENT DIRECTOR) WBC 15.8(H) 3.8 - 9.9 K/cumm Hgb 14.4 13.0 - 17.5 g/dL [facility] Hct 41.5 38.9 - 50.3 % [facility] Plt 359 150 - 400 K/cumm [facility] MPV 9.5 9.1 - 12.3 fL [facility] RBC 4.49 4.30 - 5.80 M/cumm [facility] MCV 92.4 81.3 - 96.4 fL [facility] MCH 32.1 27.1 - 33.3 pg [facility] MCHC 34.7 32.3 - 35.7 g/dL [facility] RDW CV 12.9 11.1 - 14.9 % [facility] RDW SD 43.8 35.7 - 48.1 fL [facility] NRBC abs 0.00 0.00 - 0.01 K/cumm [facility] Blood 05/31/2024 9:21 PM CREATIVE ENGAGEMENT DIRECTOR 05/31/2024 11:02 PM CREATIVE ENGAGEMENT DIRECTOR Stephen Wagoner MD LAB BLOOD ORDERABLES Final Result Performing Organization Address City/[facility]/ZIP Co de Phone Number [facility] Department [place] [address] * (ABNORMAL) Comprehensive metabolic panel (05/31/2024 9:21 PM CREATIVE ENGAGEMENT DIRECTOR) Sodium 141 135 - 145 mmol/L Potassium, pl 3.8 3.3 - 4.9 mmol/L [facility] Chloride 103 97 - 110 mmol/L [facility] CO2 23 22 - 32 mmol/L [facility] Anion gap 15 2 - 15 mmol/L [facility] BUN 22 6 - 25 mg/dL [facility] Creatinine 1.14 0.80 - 1.30 mg/dL [facility] Glucose 158 70 - 199 mg/dL [facility] Comment: Interpretive Data Fasting glucose >/= 126 [...] 2022. Calcium 9.4 8.5 - 10.3 mg/dL [facility] Bilirubin, total 0.5 0.1 - 1.2 mg/dL [facility] Protein, pl 7.5 6.5 - 8.5 g/dL [facility] Albumin 4.6 3.5 - 5.0 g/dL [facility] Alk phos 145(H) 40 - 130 Units/L [facility] ALT 24 7 - 55 Units/L [facility] AST 15 10 - 50 Units/L [facility] Blood 05/31/2024 9:21 PM CREATIVE ENGAGEMENT DIRECTOR 05/31/2024 11:01 PM CREATIVE ENGAGEMENT DIRECTOR us Stephen Wagoner MD LAB BLOOD ORDERABLES Final Result [facility] Department [place] [address] * (ABNORMAL) POCT glucose (05/31/2024 7:53 PM CREATIVE ENGAGEMENT DIRECTOR) Glucose, POC 275(H) 70 - 199 mg/dL Blood 05/31/2024 7:53 PM CREATIVE ENGAGEMENT DIRECTOR 05/31/2024 7:53 PM CREATIVE ENGAGEMENT DIRECTOR Stephen Wagoner MD LAB POCT ORDERABLES - DEVIC E Final Result Performing Organization Address City/[facility] Co de Phone Number [facility] ([facility] [place] [address] * (ABNORMAL) POCT glucose (05/31/2024 4:22 PM CREATIVE ENGAGEMENT DIRECTOR) Glucose, POC 202(H) 70 - 199 mg/dL Blood 05/31/2024 4:22 PM CREATIVE ENGAGEMENT DIRECTOR 05/31/2024 4:22 PM CREATIVE ENGAGEMENT DIRECTOR Stephen Wagoner MD LAB POCT ORDERABLES - DEVIC E Final Result Performing Organization Address [facility] Co de Phone Number [facility] ([facility] [place] [address] * POCT glucose (05/31/2024 11:30 AM CREATIVE ENGAGEMENT DIRECTOR) Glucose, POC 136 70 - 199 mg/dL Blood 05/31/2024 11:3 0 AM CREATIVE ENGAGEMENT DIRECTOR 05/31/2024 11:30 AM CREATIVE ENGAGEMENT DIRECTOR Stephen Wagoner MD LAB POCT ORDERABLES - DEVIC E Final Result Performing Organization Address [facility] Co de Phone Number [facility] ([facility] [place] [address] * eGFR (05/31/2024 8:04 AM CREATIVE ENGAGEMENT DIRECTOR) eGFR 70 >=60 mL/min/1. 73 m2 Comment: [...] last reviewed 2021. Blood 05/31/2024 8:04 AM CREATIVE ENGAGEMENT DIRECTOR 05/31/2024 8:44 AM CREATIVE ENGAGEMENT DIRECTOR Stephen Wagoner MD LAB BLOOD ORDERABLES Final Result [facility] Department [place] [address] * (ABNORMAL) Differential, auto (05/31/2024 8:04 AM CREATIVE ENGAGEMENT DIRECTOR) Neutrophil abs 6.5 1.5 - 6.5 K/cumm Imm gran abs 0.1 0.0 - 0.1 K/cumm [facility] Lymphocyte abs 3.8(H) 0.8 - 3.3 K/cumm [facility] Monocyte abs 1.0(H) 0.2 - 0.8 K/cumm [facility] Eosinophil abs 0.2 0.0 - 0.5 K/cumm [facility] Basophil abs 0.1 0.0 - 0.1 K/cumm [facility] Neutrophil pct 56.5 % [facility] Comment: Interpretive Data Percent cell count reference ranges are not reported, since discordance with absolute values may lead to misinterpretation of CBC data. Current Interpretive Data was last revised on 2017. Imm gran pct 0.5 % [facility] Comment: Interpretive Data Percent cell count reference ranges are not reported, since discordance with absolute values may lead to misinterpretation of CBC data. Current Interpretive Data was last revised on 2017. Lymphocyte pct 32.8 % [facility] Comment: Interpretive Data Percent cell count reference ranges are not reported, since discordance with absolute values may lead to misinterpretation of CBC data. Current Interpretive Data was last revised on 2017. Monocyte pct 8.4 % [facility] Comment: Interpretive Data Percent cell count reference ranges are not reported, since discordance with absolute values may lead to misinterpretation of CBC data. Current Interpretive Data was last revised on 2017. Eosinophil pct 1.3 % [facility] Comment: Interpretive Data Percent cell count reference ranges are not reported, since discordance with absolute values may lead to misinterpretation of CBC data. Current Interpretive Data was last revised on 2017. Basophil pct 0.5 % [facility] Comment: Interpretive Data Percent cell count reference ranges are not reported, since discordance with absolute values may lead to misinterpretation of CBC data. Current Interpretive Data was last revised on 2017. Blood 05/31/2024 8:04 AM CREATIVE ENGAGEMENT DIRECTOR 05/31/2024 8:39 AM CREATIVE ENGAGEMENT DIRECTOR Stephen Wagoner MD LAB BLOOD ORDERABLES Final Result [facility] Department [place] [address] * (ABNORMAL) CBC with auto differential (05/31/2024 8:04 AM CREATIVE ENGAGEMENT DIRECTOR) WBC 11.6(H) 3.8 - 9.9 K/cumm Hgb 13.5 13.0 - 17.5 g/dL [facility] Hct 39.0 38.9 - 50.3 % [facility] Plt 285 150 - 400 K/cumm [facility] MPV 9.2 9.1 - 12.3 fL [facility] RBC 4.29(L) 4.30 - 5.80 M/cumm [facility] MCV 90.9 81.3 - 96.4 fL [facility] MCH 31.5 27.1 - 33.3 pg [facility] MCHC 34.6 32.3 - 35.7 g/dL [facility] RDW CV 12.8 11.1 - 14.9 % [facility] RDW SD 42.2 35.7 - 48.1 fL [facility] NRBC abs 0.00 0.00 - 0.01 K/cumm [facility] Blood 05/31/2024 8:04 AM CREATIVE ENGAGEMENT DIRECTOR 05/31/2024 8:39 AM CREATIVE ENGAGEMENT DIRECTOR Stephen Wagoner MD LAB BLOOD ORDERABLES Final Result [facility] Department [place] [address] * Comprehensive metabolic panel (05/31/2024 8:04 AM CREATIVE ENGAGEMENT DIRECTOR) Sodium 140 135 - 145 mmol/L Potassium, pl 3.6 3.3 - 4.9 mmol/L [facility] Chloride 107 97 - 110 mmol/L [facility] CO2 24 22 - 32 mmol/L [facility] Anion gap 9 2 - 15 mmol/L [facility] BUN 18 6 - 25 mg/dL [facility] Creatinine 1.14 0.80 - 1.30 mg/dL [facility] Glucose 95 70 - 199 mg/dL [facility] Comment: Interpretive Data Fasting glucose >/= 126 [...] 2022. Calcium 8.7 8.5 - 10.3 mg/dL [facility] Bilirubin, total 0.7 0.1 - 1.2 mg/dL [facility] Protein, pl 6.6 6.5 - 8.5 g/dL [facility] Albumin 3.9 3.5 - 5.0 g/dL [facility] Alk phos 130 40 - 130 Units/L [facility] ALT 20 7 - 55 Units/L [facility] AST 16 10 - 50 Units/L [facility] Blood 05/31/2024 8:04 AM CREATIVE ENGAGEMENT DIRECTOR 05/31/2024 8:39 AM CREATIVE ENGAGEMENT DIRECTOR us Stephen Wagoner MD LAB BLOOD ORDERABLES Final Result [facility] Department [place] [address] * CT Chest W Contrast (05/30/2024 8:11 PM CREATIVE ENGAGEMENT DIRECTOR) Anatomical Region Laterality Modality Body N/A Computed Tomogra phy 05/31/2024 7:55 AM CREATIVE ENGAGEMENT DIRECTOR Impressions 05/31/2024 7:55 AM CREATIVE ENGAGEMENT DIRECTOR No CT cause to explain the patient's dyspnea. Electronically signed by: Tabatha Huff M.D. Narrative 05/31/2024 7:[address] ENGAGEMENT DIRECT[address] of the chest with intravenous contrast [...] dyspnea. Electronically signed by: Tabatha Huff M.D. us Epifanio Moreno MD IMG CT PROCEDURES Final Result * Troponin I high-sensitivity 6-hour (05/29/2024 8:37 PM CREATIVE ENGAGEMENT DIRECTOR) Trop I hs <4 <=35 ng/L Comment: Interpretive Data For further hscTnI resources including the diagnostic algorithm and an aid in interpretation, copy and paste this link: [email or web address] Current Interpretive Data last revised 2019. Trop I hs delta 0 ng/L [facility] Trop I hs interp Insignificant [facility] Blood 05/29/2024 8:37 PM CREATIVE ENGAGEMENT DIRECTOR 05/29/2024 8:56 PM CREATIVE ENGAGEMENT DIRECTOR Diana Sneed MD LAB BLOOD ORDERABL ES Final Result [facility] Department [place] [address] * Troponin I high-sensitivity series (baseline, 2hr, 4hr, 6hr) (05/29/2024 2:29 PM CREATIVE ENGAGEMENT DIRECTOR) Trop I hs <4 <=35 ng/L Comment: Interpretive Data For further hscTnI resources including the diagnostic algorithm and an aid in interpretation, copy and paste this link: [email or web address] Current Interpretive Data last revised 2019. Blood 05/29/2024 2:29 PM CREATIVE ENGAGEMENT DIRECTOR 05/29/2024 2:56 PM CREATIVE ENGAGEMENT DIRECTOR Rudi Cash MD LAB BLOOD ORDERABLES Fi nal Result Performing Organization Address [facility] de Phone Number [facility] Department [place] [address] * eGFR (05/29/2024 2:29 PM CREATIVE ENGAGEMENT DIRECTOR) eGFR 65 >=60 mL/min/1. 73 m2 Comment: [...] last reviewed 2021. Blood 05/29/2024 2:29 PM CREATIVE ENGAGEMENT DIRECTOR 05/29/2024 2:56 PM CREATIVE ENGAGEMENT DIRECTOR Diana Sneed MD LAB BLOOD ORDERABL ES Final Result Performing Organization Address [facility] Co de Phone Number [facility] Department [place] [address] * (ABNORMAL) Differential, auto (05/29/2024 2:29 PM CREATIVE ENGAGEMENT DIRECTOR) Neutrophil abs 4.8 1.5 - 6.5 K/cumm Imm gran abs 0.0 0.0 - 0.1 K/cumm [facility] Lymphocyte abs 3.0 0.8 - 3.3 K/cumm [facility] Monocyte abs 0.7 0.2 - 0.8 K/cumm [facility] Eosinophil abs 1.2(H) 0.0 - 0.5 K/cumm [facility] Basophil abs 0.1 0.0 - 0.1 K/cumm [facility] Neutrophil pct 49.0 % [facility] Comment: Interpretive Data Percent cell count reference ranges are not reported, since discordance with absolute values may lead to misinterpretation of CBC data. Current Interpretive Data was last revised on 2017. Imm gran pct 0.3 % [facility] Comment: Interpretive Data Percent cell count reference ranges are not reported, since discordance with absolute values may lead to misinterpretation of CBC data. Current Interpretive Data was last revised on 2017. Lymphocyte pct 30.9 % [facility] Comment: Interpretive Data Percent cell count reference ranges are not reported, since discordance with absolute values may lead to misinterpretation of CBC data. Current Interpretive Data was last revised on 2017. Monocyte pct 7.2 % [facility] Comment: Interpretive Data Percent cell count reference ranges are not reported, since discordance with absolute values may lead to misinterpretation of CBC data. Current Interpretive Data was last revised on 2017. Eosinophil pct 12.0 % [facility] Comment: Interpretive Data Percent cell count reference ranges are not reported, since discordance with absolute values may lead to misinterpretation of CBC data. Current Interpretive Data was last revised on 2017. Basophil pct 0.6 % [facility] Comment: Interpretive Data Percent cell count reference ranges are not reported, since discordance with absolute values may lead to misinterpretation of CBC data. Current Interpretive Data was last revised on 2017. Blood 05/29/2024 2:29 PM CREATIVE ENGAGEMENT DIRECTOR 05/29/2024 2:56 PM CREATIVE ENGAGEMENT DIRECTOR us Diana Sneed MD LAB BLOOD ORDERABL ES Final Result [facility] Department [place] [address] * Pro B-type natriuretic peptide (05/29/2024 2:29 PM CREATIVE ENGAGEMENT DIRECTOR) NT-proBNP <50 <=300 pg/mL Comment: Interpretive Comments: [...] Heart J. 2006:27:330-337. 2. Qian RW, Sherley GABRIEL. J. AM Miguel Angel Cardiol: Cardiovasc Imag. 2009;2: 216- 225. Interpretive Data Last Revised Date: 2017. Blood 05/29/2024 2:29 PM CREATIVE ENGAGEMENT DIRECTOR 05/29/2024 2:56 PM CREATIVE ENGAGEMENT DIRECTOR us Rudi Cash MD LAB BLOOD ORDERABLES nal Result [facility] Department of Laboratories [place], [place] [id number] * CBC with auto differential (05/29/2024 2:29 PM CREATIVE ENGAGEMENT DIRECTOR) WBC 9.8 3.8 - 9.9 K/cumm Hgb 15.5 13.0 - 17.5 g/dL [facility] Hct 44.6 38.9 - 50.3 % [facility] Plt 304 150 - 400 K/cumm [facility] MPV 9.1 9.1 - 12.3 fL [facility] RBC 4.97 4.30 - 5.80 M/cumm [facility] MCV 89.7 81.3 - 96.4 fL [facility] MCH 31.2 27.1 - 33.3 pg [facility] MCHC 34.8 32.3 - 35.7 g/dL [facility] RDW CV 13.1 11.1 - 14.9 % [facility] RDW SD 42.5 35.7 - 48.1 fL [facility] NRBC abs 0.00 0.00 - 0.01 K/cumm [facility] Blood 05/29/2024 2:29 PM CREATIVE ENGAGEMENT DIRECTOR 05/29/2024 2:56 PM CREATIVE ENGAGEMENT DIRECTOR Rudi Cash MD LAB BLOOD ORDERABLES nal Result [facility] Department [place] [address] * (ABNORMAL) Comprehensive metabolic panel (05/29/2024 2:29 PM CREATIVE ENGAGEMENT DIRECTOR) Sodium 141 135 - 145 mmol/L Potassium, pl 4.0 3.3 - 4.9 mmol/L [facility] Comment:Hemolyzed; Potassium value may be falsely elevated by as much as 0.3-0.5 mmol/L. Suggest redraw and reanalysis. Chloride 102 97 - 110 mmol/L [facility] CO2 26 22 - 32 mmol/L [facility] Anion gap 13 2 - 15 mmol/L [facility] BUN 16 6 - 25 mg/dL [facility] Creatinine 1.21 0.80 - 1.30 mg/dL [facility] Glucose 107 70 - 199 mg/dL [facility] Comment: Interpretive Data Fasting glucose >/= 126 [...] 2022. Calcium 9.4 8.5 - 10.3 mg/dL [facility] Bilirubin, total 0.8 0.1 - 1.2 mg/dL [facility] Protein, pl 7.4 6.5 - 8.5 g/dL [facility] Albumin 4.3 3.5 - 5.0 g/dL [facility] Alk phos 166(H) 40 - 130 Units/L [facility] ALT 28 7 - 55 Units/L [facility] AST 32 10 - 50 Units/L [facility] Comment:Hemolyzed; result ma y be falsely elevated Blood 05/29/2024 2:29 PM CREATIVE ENGAGEMENT DIRECTOR 05/29/2024 2:56 PM CREATIVE ENGAGEMENT DIRECTOR us Rudi Cash MD LAB BLOOD ORDERABLES Fi nal Result [facility] Department [place] [address] * XR Chest PA Lateral 2 Views (05/29/2024 12:29 PM CREATIVE ENGAGEMENT DIRECTOR) Anatomical Region Laterality Modality Body, Chest N/A Computed Radiogr aphy 05/29/2024 1:17 PM CREATIVE ENGAGEMENT DIRECTOR Impressions 05/29/2024 1:17 PM CREATIVE ENGAGEMENT DIRECTOR No priors are available for comparison. Peripheral linear opacities in the lung bases may represent bibasilar atelectasis or trace pulmonary edema. No focal consolidations, pleural effusions, or pneumothorax. Cardiomediastinal silhouette is within normal. Electronically signed by: Mely Catalan M.D. Narrative 05/29/2024 1:17 PM CREATIVE ENGAGEMENT DIRECTOR EXAMINATION: 2 view chest radiograph Procedure Note Mely Catalan MD - 05/29/2024 EXAMINATION: 2 view chest radiograph IMPRESSION: No priors are available for comparison. Peripheral linear opacities in the lung bases may represent bibasilar atelectasis or trace pulmonary edema. No focal consolidations, pleural effusions, or pneumothorax. Cardiomediastinal silhouette is within normal. Electronically signed by: Mely Catalan M.D. us Rudi Cash MD IMG XR PROCEDURES Final Result * ECG 12-LEAD (05/29/2024 12:02 PM CREATIVE ENGAGEMENT DIRECTOR) Narrative [facility] - 05/29/2024 12:02 PM CREATIVE ENGAGEMENT DIRECTOR Diana Sneed MD 05/29/2024 12:02 PM ECG [...] the ED Diana Sneed MD 05/29/24 1202 us Rudi Cash MD ECG ORDERABLES Final R esult [facility] * (ABNORMAL) Respiratory pathogen panel Nasopharyngeal (05/29/2024 11:59 AM CREATIVE ENGAGEMENT DIRECTOR) Pathologist [facility] Influenza A RNA Not Detected Not Detected Influenza B RNA Not Detected Not Detected [facility] RSV RNA Not Detected Not Detected [facility] COVID-19 RNA Not Detected Not Detected [facility] Coronavirus 229E RNA Not Detected Not Detected [facility] Coronavirus HKU1 RNA Not Detected Not Detected [facility] Coronavirus NL63 RNA Not Detected Not Detected [facility] Coronavirus OC43 RNA Not Detected Not Detected [facility] Adenovirus DNA Not Detected Not Detected [facility] Metapneumovirus RNA Not Detected Not Detected [facility] Rhinovirus/Enterov irus RNA Not Detected Not Detected [facility] Parainfluenza 1 RNA Not Detected Not Detected [facility] Parainfluenza 2 RNA Not Detected Not Detected [facility] Parainfluenza 3 RNA Not Detected Not Detected [facility] Parainfluenza 4 RNA Detected(A) Not Detected [facility] B. pertussis DNA Not Detected Not Detected [facility] B. parapertussis DNA Not Detected Not Detected [facility] C. pneumoniae DNA Not Detected Not Detected [facility] M. pneumoniae DNA Not Detected Not Detected [facility] Nasopharyngeal 05/29/2024 11 :59 AM CREATIVE ENGAGEMENT DIRECTOR 05/29/2024 12:17 PM CREATIVE ENGAGEMENT DIRECTOR Narrative [facility] - 05/29/2024 1:13 PM CREATIVE ENGAGEMENT DIRECTOR Is the Patient experiencing symptoms consistent with COVID?->Yes Surveillance testing for transplant patient?->No Interpretive Data [employer] FilmArray Respiratory Panel (RP2.1) assay is a [...] assay has FDA clearance for testing of SUPERVISOR HEADING swabs. The performance of additional specimen types has been assessed by the performing laboratory. The performance characteristics of this assay have been determined by [facility]. Current interpretive data was last revised on 22. Rudi Cash MD LAB MICROBIOLOGY - [facility] ORDERABLES Final Result [facility] Department [place] [address] from Last 3 Months Insurance MEDICARE [facility] MEDICARE [facility] Advance Directives For more information, please contact: [phone] * Full Code (Latest Code Status on File) Date Activated Date Inactivated Comments 05/30/2024 6:59 PM 06/02/2024 3:56 PM Care Teams Multi Spindle Operator Relationship Specialty Start Date End Date No, Physician PCP - General 05/29/24
[2024-07-25 10:33] LABS: Alveolar/Arterial O2 Gradient 94.8 mmHg; Base Excess ABG -2.3 mEq/l (+/-2.0); Fractional Inspired Oxygen 28 %; HCO3 ABG 20.4 mEq/l (22.0-26.0); Oxygen Content ABG 22.8 %vol (16.0-22.0); Oxygen Saturation ABG 94.6 % (95.0-100.0); Oxyhemoglobin 93.4 % THb (90.0-100.0); PCO2 ABG 30.6 mmHg (35.0-45.0); PO2 ABG 68.7 mmHg (80.0-100.0); PO2 FiO2 Ratio Arterial Blood 2.45 %; Total Hemoglobin 17.4 g/dL (12.0-18.0); pH ABG 7.441 (7.350-7.450)
[2024-07-25 10:36] LABS: Device NASAL CANNULA; Modified Allen's Test Pass; Site Drawn LEFT RADIAL
[2024-07-25 10:40] LABS: Prothrombin Time 13.4 Seconds (11.1-14.7)
[2024-07-25 10:41] LABS: Partial Thromboplastin Time 27.9 Seconds (22.3-36.8)
[2024-07-25 10:48] LABS: D Dimer 0.28 ug/mL (<0.48)
--- OUTSIDE RECORDS SUMMARY | 2024-07-25 10:51 | XMS_ITS | Clinical Summary ---
Author Organization [facility] Address [address] [place] [address] Care Team Providers Care Dot Compliance Specialist Name Role Phone Jonathan Kulkarni MD Primary Care Provider [phone] Source Comments [facility],non-owned Affiliates and Associated Physician Practices is amultiple site organization consisting of ambulatory clinics and hospital sitesin [place], [place], [place] and [place]. This disclosure is being madepursuant to the Care Everywhere program and may not contain all information available regarding this patient. Last updated 18.[facility] Allergies Active Allergy Reactions Criticality Noted Date [...] age to complete this topic Care Teams Dot Compliance Specialist Relationship Specialty Start Date End Date Jonathan Kulkarni MD [address] [place] [address] PCP - General Internal Medicine 01/01/21
--- OUTSIDE RECORDS SUMMARY | 2024-07-25 10:51 | XMS_ITS | Clinical Summary ---
Author Organization [facility] Address [address] [place] [address] Care Team Providers Care Optical Worker Name Role Phone No, Physician Primary Care Provider [phone] Allergies No known active allergies Medications cetirizine [...] Department Care Team Description 07/24/2024 Orders Only [facility] Scheduling [address] [place] [address] Suleiman Antoine MD Chronic obstructive pulmonary disease with (acute) exacerbation (HCC) (Primary Dx) 06/04/2024 SHOP/CHAP Initial Outreach [facility] OP CASE MANAGEMENT [address] [place] [address] Lilian Ribera, [facility] 06/04/2024 SHOP/CHAP Initial Eligibility Review [facility] OP CASE MANAGEMENT [address] [place] [address] Tuyet Falk, [facility] 05/29/2024 12:46 PM PARTNERSHIP MANAGER - 06/02/2024 11:45 AM PARTNERSHIP MANAGER Hospital Encounter [facility] [address] [place] [address] Rudi Cash MD Cohn, MD Mary Aguayo, [...] uit: 1987 Tobacco Cessation:Counseling Given: Not Answered [facility] Utilities Answer Date Recorded In the past 12 months has [employer], gas, oil, or water [employer] threatened to shut off services in your [...] often do you attend chur ch or confucianist services? Never 06/04/2024 Do you belong to any clubs o r organizations such as rastafari groups, unions, fraternal or athletic groups, or [...] any time in the past 12 m [facility], were you homeless or living in a alf (including now)? No 06/04/2024 Personal Safety Answer Date Recorded Have you ever been in or are you currently in a harmful physical or emotional relationship or is someone making you feel afraid or unsafe? Denies 05/29/2024 Sex and Gender Information Value Date Recorded Sex Assigned at Not on file Legal Sex Male 11:19 AM PARTNERSHIP MANAGER Gender Identity Not on file Sexual Orientation Not on file Obstetrics History Last Filed Vital Signs Vital Sign Reading Time Taken Comments Blood Pressure 156/78 06/02/2024 8:04 AM PARTNERSHIP MANAGER Pulse 102 06/02/2024 8:04 AM PARTNERSHIP MANAGER Temperature 36.4 C (97.5 F) 06/02/2024 8:04 AM PARTNERSHIP MANAGER Respiratory Rate 18 06/02/2024 8:04 AM PARTNERSHIP MANAGER Oxygen Saturation 97% 06/02/2024 11: 16 AM PARTNERSHIP MANAGER Inhaled Oxygen Concentration - - Weight 86.1 kg (189 lb 13.1 oz) 05/30/2024 6:59 PM PARTNERSHIP MANAGER Height 180.3 cm (5' 11 ) 05/30/2024 6:59 PM PARTNERSHIP MANAGER Body Mass Index 26.47 05/30/2024 6:59 PM PARTNERSHIP MANAGER Plan of Treatment Health Maintenance Due Date [...] GLUCOSE DEVICE Routine 06/02/2024 1 1:28 AM PARTNERSHIP MANAGER POCT GLUCOSE DEVICE Routine 06/02/2024 7 :21 AM PARTNERSHIP MANAGER EGFR Routine 06/01/2024 11:12 PM PARTNERSHIP MANAGER DIFFERENTIAL AUTO Routine 06/01/2024 11: 12 PM PARTNERSHIP MANAGER CBC WITH AUTO DIFFERENTIAL Routine 06/01/2024 11:12 PM PARTNERSHIP MANAGER COMPREHENSIVE METABOLIC PANEL Routine 06/01/2024 11:12 PM PARTNERSHIP MANAGER POCT GLUCOSE DEVICE Routine 06/01/2024 7 :48 PM PARTNERSHIP MANAGER POCT GLUCOSE DEVICE Routine 06/01/2024 5 :20 PM PARTNERSHIP MANAGER POCT GLUCOSE DEVICE Routine 06/01/2024 1 1:20 AM PARTNERSHIP MANAGER POCT GLUCOSE DEVICE Routine 06/01/2024 7 :13 AM PARTNERSHIP MANAGER EGFR Routine 05/31/2024 9:21 PM PARTNERSHIP MANAGER DIFFERENTIAL AUTO Routine 05/31/2024 9:2 1 PM PARTNERSHIP MANAGER CBC WITH AUTO DIFFERENTIAL Routine 05/31/2024 9:21 PM PARTNERSHIP MANAGER COMPREHENSIVE METABOLIC PANEL Routine 05/31/2024 9:21 PM PARTNERSHIP MANAGER POCT GLUCOSE DEVICE Routine 05/31/2024 7 :53 PM PARTNERSHIP MANAGER POCT GLUCOSE DEVICE Routine 05/31/2024 4 :22 PM PARTNERSHIP MANAGER POCT GLUCOSE DEVICE Routine 05/31/2024 1 1:30 AM PARTNERSHIP MANAGER EGFR Routine 05/31/2024 8:04 AM PARTNERSHIP MANAGER DIFFERENTIAL AUTO Routine 05/31/2024 8:0 4 AM PARTNERSHIP MANAGER CBC WITH AUTO DIFFERENTIAL Routine 05/31/2024 8:04 AM PARTNERSHIP MANAGER COMPREHENSIVE METABOLIC PANEL Routine 05/31/2024 8:[address] CHEST W CONTRAST IP Routine 05/30/2024 8 :11 PM PARTNERSHIP MANAGER TROPONIN I HIGH-SENSITIVITY 6-HOUR Timed 05/29/2024 8:37 PM PARTNERSHIP MANAGER EGFR STAT 05/29/2024 2:29 PM PARTNERSHIP MANAGER DIFFERENTIAL AUTO STAT 05/29/2024 2:2 9 PM PARTNERSHIP MANAGER PRO B-TYPE NATRIURETIC PEPTIDE STAT 05/29/2024 2:29 PM PARTNERSHIP MANAGER TROPONIN I HIGH-SENSITIVITY SERIES (BASELINE, 2HR, 4HR, 6HR) STAT 05/29/2024 2:29 PM PARTNERSHIP MANAGER CBC WITH AUTO DIFFERENTIAL STAT 05/29/2024 2:29 PM PARTNERSHIP MANAGER COMPREHENSIVE METABOLIC PANEL STAT 05/29/2024 2:29 PM PARTNERSHIP MANAGER XR CHEST PA LATERAL 2 VIEWS ED 05/29/2024 12:29 PM PARTNERSHIP MANAGER ECG 12-LEAD STAT 05/29/2024 12:02 PM PARTNERSHIP MANAGER RESPIRATORY PATHOGEN PANEL Routine 05/29/2024 11:59 AM PARTNERSHIP MANAGER from Last 3 Months Results * POCT glucose (06/02/2024 11:28 AM PARTNERSHIP MANAGER) Glucose, POC 122 70 - 199 mg/dL Blood 06/02/2024 11:2 8 AM PARTNERSHIP MANAGER 06/02/2024 11:28 AM PARTNERSHIP MANAGER us Stephen Wagoner MD LAB POCT ORDERABLES - DEVIC E Final Result SHEILA [facility] [place] [address] * POCT glucose (06/02/2024 7:21 AM PARTNERSHIP MANAGER) [facility] Glucose, POC 103 70 - 199 mg/dL Blood 06/02/2024 7:21 AM PARTNERSHIP MANAGER 06/02/2024 7:21 AM PARTNERSHIP MANAGER Stephen Wagoner MD LAB POCT ORDERABLES - DEVIC E Final Result Performing Organization Address City/[facility]/ZIP Co de Phone Number SHEILA [facility] [place] [address] * eGFR (06/01/2024 11:12 PM PARTNERSHIP MANAGER) [facility] eGFR 72 >=60 mL/min/1. 73 m2 Comment: [...] reviewed 2021. Blood 06/01/2024 11:1 2 PM PARTNERSHIP MANAGER 06/02/2024 12:44 AM PARTNERSHIP MANAGER us Stephen Wagoner MD LAB BLOOD ORDERABLES Final Result [facility] [place] [address] * (ABNORMAL) Differential, auto (06/01/2024 11:12 PM PARTNERSHIP MANAGER) Neutrophil abs 9.7(H) 1.5 - 6.5 K/cumm Imm gran abs 0.1 0.0 - 0.1 K/cumm [facility] Lymphocyte abs 2.1 0.8 - 3.3 K/cumm [facility] Monocyte abs 1.1(H) 0.2 - 0.8 K/cumm [facility] Eosinophil abs 0.0 0.0 - 0.5 K/cumm [facility] Basophil abs 0.1 0.0 - 0.1 K/cumm [facility] Neutrophil pct 73.9 % [facility] Comment: Interpretive Data Percent cell count reference ranges are not reported, since discordance with absolute values may lead to misinterpretation of CBC data. Current Interpretive Data was last revised on 2017. Imm gran pct 0.7 % [facility] Comment: Interpretive Data Percent cell count reference ranges are not reported, since discordance with absolute values may lead to misinterpretation of CBC data. Current Interpretive Data was last revised on 2017. Lymphocyte pct 15.9 % [facility] Comment: Interpretive Data Percent cell count reference ranges are not reported, since discordance with absolute values may lead to misinterpretation of CBC data. Current Interpretive Data was last revised on 2017. Monocyte pct 8.7 % [facility] Comment: Interpretive Data Percent cell count reference ranges are not reported, since discordance with absolute values may lead to misinterpretation of CBC data. Current Interpretive Data was last revised on 2017. Eosinophil pct 0.3 % [facility] Comment: Interpretive Data Percent cell count reference ranges are not reported, since discordance with absolute values may lead to misinterpretation of CBC data. Current Interpretive Data was last revised on 2017. Basophil pct 0.5 % [facility] Comment: Interpretive Data Percent cell count reference ranges are not reported, since discordance with absolute values may lead to misinterpretation of CBC data. Current Interpretive Data was last revised on 2017. Blood 06/01/2024 11:1 2 PM PARTNERSHIP MANAGER 06/02/2024 12:43 AM PARTNERSHIP MANAGER Stephen Wagoner MD LAB BLOOD ORDERABLES Final Result Performing Organization Address [facility]/ZIP Co de Phone Number [facility] [place] [address] * (ABNORMAL) CBC with auto differential (06/01/2024 11:12 PM PARTNERSHIP MANAGER) [facility] WBC 13.2(H) 3.8 - 9.9 K/cumm Hgb 13.6 13.0 - 17.5 g/dL [facility] Hct 39.2 38.9 - 50.3 % [facility] Plt 350 150 - 400 K/cumm [facility] MPV 9.6 9.1 - 12.3 fL [facility] RBC 4.37 4.30 - 5.80 M/cumm [facility] MCV 89.7 81.3 - 96.4 fL [facility] MCH 31.1 27.1 - 33.3 pg [facility] MCHC 34.7 32.3 - 35.7 g/dL [facility] RDW CV 12.7 11.1 - 14.9 % [facility] RDW SD 41.9 35.7 - 48.1 fL [facility] NRBC abs 0.00 0.00 - 0.01 K/cumm [facility] Blood 06/01/2024 11:1 2 PM PARTNERSHIP MANAGER 06/02/2024 12:43 AM PARTNERSHIP MANAGER Stephen Wagoner MD LAB BLOOD ORDERABLES Final Result Performing Organization Address [facility] Co de Phone Number [facility] [place] [address] * Comprehensive metabolic panel (06/01/2024 11:12 PM PARTNERSHIP MANAGER) [facility] Sodium 140 135 - 145 mmol/L Potassium, pl 4.2 3.3 - 4.9 mmol/L [facility] Chloride 103 97 - 110 mmol/L [facility] CO2 22 22 - 32 mmol/L [facility] Anion gap 15 2 - 15 mmol/L [facility] BUN 24 6 - 25 mg/dL [facility] Creatinine 1.12 0.80 - 1.30 mg/dL [facility] Glucose 177 70 - 199 mg/dL [facility] Comment: Interpretive Data Fasting glucose >/= 126 [...] 2022. Calcium 9.6 8.5 - 10.3 mg/dL [facility] Bilirubin, total 0.5 0.1 - 1.2 mg/dL [facility] Protein, pl 6.9 6.5 - 8.5 g/dL [facility] Albumin 4.0 3.5 - 5.0 g/dL [facility] Alk phos 130 40 - 130 Units/L [facility] ALT 22 7 - 55 Units/L [facility] AST 22 10 - 50 Units/L [facility] Blood 06/01/2024 11:1 2 PM PARTNERSHIP MANAGER 06/02/2024 12:44 AM PARTNERSHIP MANAGER Stephen Wagoner MD LAB BLOOD ORDERABLES Final Result Performing Organization Address [facility]/ZIP Co de Phone Number [facility] [place] [address] * POCT glucose (06/01/2024 7:48 PM PARTNERSHIP MANAGER) [facility] Glucose, POC 159 70 - 199 mg/dL Blood 06/01/2024 7:48 PM PARTNERSHIP MANAGER 06/01/2024 7:48 PM PARTNERSHIP MANAGER Stephen Wagoner MD LAB POCT ORDERABLES - DEVIC E Final Result Performing Organization Address [facility] Co de Phone Number [facility] [place] [address] * POCT glucose (06/01/2024 5:20 PM PARTNERSHIP MANAGER) Glucose, POC 189 70 - 199 mg/dL Blood 06/01/2024 5:20 PM PARTNERSHIP MANAGER 06/01/2024 5:20 PM PARTNERSHIP MANAGER Stephen Wagoner MD LAB POCT ORDERABLES - [place] [address] * POCT glucose (06/01/2024 11:20 AM PARTNERSHIP MANAGER) Glucose, POC 150 70 - 199 mg/dL Blood 06/01/2024 11:2 0 AM PARTNERSHIP MANAGER 06/01/2024 11:20 AM PARTNERSHIP MANAGER Stephen Wagoner MD LAB POCT ORDERABLES - DEVIC E Final Result Performing Organization Address City/[facility]/ZIP Co de Phone Number [facility] [place] [address] * POCT glucose (06/01/2024 7:13 AM PARTNERSHIP MANAGER) Glucose, POC 83 70 - 199 mg/dL Blood 06/01/2024 7:13 AM PARTNERSHIP MANAGER 06/01/2024 7:13 AM PARTNERSHIP MANAGER Stephen Wagoner MD LAB POCT ORDERABLES - DEVIC E Final Result Performing Organization Address City/[facility]/[place] [address] * eGFR (05/31/2024 9:21 PM PARTNERSHIP MANAGER) eGFR 70 >=60 mL/min/1. 73 m2 Comment: [...] last reviewed 2021. Blood 05/31/2024 9:21 PM PARTNERSHIP MANAGER 05/31/2024 11:01 PM PARTNERSHIP MANAGER Stephen Wagoner MD LAB BLOOD ORDERABLES Final Result [facility] [place] [address] * (ABNORMAL) Differential, auto (05/31/2024 9:21 PM PARTNERSHIP MANAGER) Neutrophil abs 11.3(H) 1.5 - 6.5 K/cumm Imm gran abs 0.1 0.0 - 0.1 K/cumm [facility] Lymphocyte abs 3.0 0.8 - 3.3 K/cumm [facility] Monocyte abs 1.3(H) 0.2 - 0.8 K/cumm [facility] Eosinophil abs 0.0 0.0 - 0.5 K/cumm [facility] Basophil abs 0.1 0.0 - 0.1 K/cumm [facility] Neutrophil pct 71.8 % [facility] Comment: Interpretive Data Percent cell count reference ranges are not reported, since discordance with absolute values may lead to misinterpretation of CBC data. Current Interpretive Data was last revised on 2017. Imm gran pct 0.6 % [facility] Comment: Interpretive Data Percent cell count reference ranges are not reported, since discordance with absolute values may lead to misinterpretation of CBC data. Current Interpretive Data was last revised on 2017. Lymphocyte pct 18.7 % [facility] Comment: Interpretive Data Percent cell count reference ranges are not reported, since discordance with absolute values may lead to misinterpretation of CBC data. Current Interpretive Data was last revised on 2017. Monocyte pct 8.3 % [facility] Comment: Interpretive Data Percent cell count reference ranges are not reported, since discordance with absolute values may lead to misinterpretation of CBC data. Current Interpretive Data was last revised on 2017. Eosinophil pct 0.2 % [facility] Comment: Interpretive Data Percent cell count reference ranges are not reported, since discordance with absolute values may lead to misinterpretation of CBC data. Current Interpretive Data was last revised on 2017. Basophil pct 0.4 % [facility] Comment: Interpretive Data Percent cell count reference ranges are not reported, since discordance with absolute values may lead to misinterpretation of CBC data. Current Interpretive Data was last revised on 2017. Blood 05/31/2024 9:21 PM PARTNERSHIP MANAGER 05/31/2024 11:02 PM PARTNERSHIP MANAGER us Stephen Wagoner MD LAB BLOOD ORDERABLES Final Result [facility] [place] [address] * (ABNORMAL) CBC with auto differential (05/31/2024 9:21 PM PARTNERSHIP MANAGER) WBC 15.8(H) 3.8 - 9.9 K/cumm Hgb 14.4 13.0 - 17.5 g/dL [facility] Hct 41.5 38.9 - 50.3 % [facility] Plt 359 150 - 400 K/cumm [facility] MPV 9.5 9.1 - 12.3 fL [facility] RBC 4.49 4.30 - 5.80 M/cumm [facility] MCV 92.4 81.3 - 96.4 fL [facility] MCH 32.1 27.1 - 33.3 pg [facility] MCHC 34.7 32.3 - 35.7 g/dL [facility] RDW CV 12.9 11.1 - 14.9 % [facility] RDW SD 43.8 35.7 - 48.1 fL [facility] NRBC abs 0.00 0.00 - 0.01 K/cumm [facility] Blood 05/31/2024 9:21 PM PARTNERSHIP MANAGER 05/31/2024 11:02 PM PARTNERSHIP MANAGER us Stephen Wagoner MD LAB BLOOD ORDERABLES Final Result [facility] [place] [address] * (ABNORMAL) Comprehensive metabolic panel (05/31/2024 9:21 PM PARTNERSHIP MANAGER) Sodium 141 135 - 145 mmol/L Potassium, pl 3.8 3.3 - 4.9 mmol/L [facility] Chloride 103 97 - 110 mmol/L [facility] CO2 23 22 - 32 mmol/L [facility] Anion gap 15 2 - 15 mmol/L [facility] BUN 22 6 - 25 mg/dL [facility] Creatinine 1.14 0.80 - 1.30 mg/dL [facility] Glucose 158 70 - 199 mg/dL [facility] Comment: Interpretive Data Fasting glucose >/= 126 [...] 2022. Calcium 9.4 8.5 - 10.3 mg/dL [facility] Bilirubin, total 0.5 0.1 - 1.2 mg/dL [facility] Protein, pl 7.5 6.5 - 8.5 g/dL [facility] Albumin 4.6 3.5 - 5.0 g/dL [facility] Alk phos 145(H) 40 - 130 Units/L [facility] ALT 24 7 - 55 Units/L [facility] AST 15 10 - 50 Units/L [facility] Blood 05/31/2024 9:21 PM PARTNERSHIP MANAGER 05/31/2024 11:01 PM PARTNERSHIP MANAGER Stephen Wagoner MD LAB BLOOD ORDERABLES Final Result Performing Organization Address City/[facility]/ZIP Co de Phone Number [facility] [place] [address] * (ABNORMAL) POCT glucose (05/31/2024 7:53 PM PARTNERSHIP MANAGER) Glucose, POC 275(H) 70 - 199 mg/dL Blood 05/31/2024 7:53 PM PARTNERSHIP MANAGER 05/31/2024 7:53 PM PARTNERSHIP MANAGER Stephen Wagoner MD LAB POCT ORDERABLES - DEVIC E Final Result Performing Organization Address City/[facility] Co de Phone Number [facility] [place] [address] * (ABNORMAL) POCT glucose (05/31/2024 4:22 PM PARTNERSHIP MANAGER) Glucose, POC 202(H) 70 - 199 mg/dL Blood 05/31/2024 4:22 PM PARTNERSHIP MANAGER 05/31/2024 4:22 PM PARTNERSHIP MANAGER Stephen Wagoner MD LAB POCT ORDERABLES - DEVIC E Final Result Performing Organization Address City/[facility]/ZIP Co de Phone Number [facility] [place] [address] * POCT glucose (05/31/2024 11:30 AM PARTNERSHIP MANAGER) Glucose, POC 136 70 - 199 mg/dL Blood 05/31/2024 11:3 0 AM PARTNERSHIP MANAGER 05/31/2024 11:30 AM PARTNERSHIP MANAGER Stephen Wagoner MD LAB POCT ORDERABLES - DEVIC E Final Result Performing Organization Address City/[facility]/ZIP Co de Phone Number SHEILA [facility] [place] [address] * eGFR (05/31/2024 8:04 AM PARTNERSHIP MANAGER) eGFR 70 >=60 mL/min/1. 73 m2 Comment: [...] last reviewed 2021. Blood 05/31/2024 8:04 AM PARTNERSHIP MANAGER 05/31/2024 8:44 AM PARTNERSHIP MANAGER Stephen Wagoner MD LAB BLOOD ORDERABLES Final Result Performing Organization Address City/[facility]/ZIP Co de Phone Number SHEILA [facility] [place] [address] * (ABNORMAL) Differential, auto (05/31/2024 8:04 AM PARTNERSHIP MANAGER) Neutrophil abs 6.5 1.5 - 6.5 K/cumm Imm gran abs 0.1 0.0 - 0.1 K/cumm [facility] Lymphocyte abs 3.8(H) 0.8 - 3.3 K/cumm [facility] Monocyte abs 1.0(H) 0.2 - 0.8 K/cumm [facility] Eosinophil abs 0.2 0.0 - 0.5 K/cumm [facility] Basophil abs 0.1 0.0 - 0.1 K/cumm [facility] Neutrophil pct 56.5 % [facility] Comment: Interpretive Data Percent cell count reference ranges are not reported, since discordance with absolute values may lead to misinterpretation of CBC data. Current Interpretive Data was last revised on 2017. Imm gran pct 0.5 % [facility] Comment: Interpretive Data Percent cell count reference ranges are not reported, since discordance with absolute values may lead to misinterpretation of CBC data. Current Interpretive Data was last revised on 2017. Lymphocyte pct 32.8 % [facility] Comment: Interpretive Data Percent cell count reference ranges are not reported, since discordance with absolute values may lead to misinterpretation of CBC data. Current Interpretive Data was last revised on 2017. Monocyte pct 8.4 % [facility] Comment: Interpretive Data Percent cell count reference ranges are not reported, since discordance with absolute values may lead to misinterpretation of CBC data. Current Interpretive Data was last revised on 2017. Eosinophil pct 1.3 % [facility] Comment: Interpretive Data Percent cell count reference ranges are not reported, since discordance with absolute values may lead to misinterpretation of CBC data. Current Interpretive Data was last revised on 2017. Basophil pct 0.5 % [facility] Comment: Interpretive Data Percent cell count reference ranges are not reported, since discordance with absolute values may lead to misinterpretation of CBC data. Current Interpretive Data was last revised on 2017. Blood 05/31/2024 8:04 AM PARTNERSHIP MANAGER 05/31/2024 8:39 AM PARTNERSHIP MANAGER Stephen Wagoner MD LAB BLOOD ORDERABLES Final Result [facility] [place] [address] * (ABNORMAL) CBC with auto differential (05/31/2024 8:04 AM PARTNERSHIP MANAGER) [facility] WBC 11.6(H) 3.8 - 9.9 K/cumm Hgb 13.5 13.0 - 17.5 g/dL [facility] Hct 39.0 38.9 - 50.3 % [facility] Plt 285 150 - 400 K/cumm [facility] MPV 9.2 9.1 - 12.3 fL [facility] RBC 4.29(L) 4.30 - 5.80 M/cumm [facility] MCV 90.9 81.3 - 96.4 fL [facility] MCH 31.5 27.1 - 33.3 pg [facility] MCHC 34.6 32.3 - 35.7 g/dL [facility] RDW CV 12.8 11.1 - 14.9 % [facility] RDW SD 42.2 35.7 - 48.1 fL [facility] NRBC abs 0.00 0.00 - 0.01 K/cumm [facility] Blood 05/31/2024 8:04 AM PARTNERSHIP MANAGER 05/31/2024 8:39 AM PARTNERSHIP MANAGER Stephen Wagoner MD LAB BLOOD ORDERABLES Final Result Performing Organization Address City/[facility]/ZIP Co de Phone Number [facility] [place] [address] * Comprehensive metabolic panel (05/31/2024 8:04 AM PARTNERSHIP MANAGER) [facility] Sodium 140 135 - 145 mmol/L Potassium, pl 3.6 3.3 - 4.9 mmol/L [facility] Chloride 107 97 - 110 mmol/L [facility] CO2 24 22 - 32 mmol/L [facility] Anion gap 9 2 - 15 mmol/L [facility] BUN 18 6 - 25 mg/dL [facility] Creatinine 1.14 0.80 - 1.30 mg/dL [facility] Glucose 95 70 - 199 mg/dL [facility] Comment: Interpretive Data Fasting glucose >/= 126 [...] 2022. Calcium 8.7 8.5 - 10.3 mg/dL [facility] Bilirubin, total 0.7 0.1 - 1.2 mg/dL [facility] Protein, pl 6.6 6.5 - 8.5 g/dL [facility] Albumin 3.9 3.5 - 5.0 g/dL [facility] Alk phos 130 40 - 130 Units/L [facility] ALT 20 7 - 55 Units/L [facility] AST 16 10 - 50 Units/L [facility] Blood 05/31/2024 8:04 AM PARTNERSHIP MANAGER 05/31/2024 8:39 AM PARTNERSHIP MANAGER Stephen Wagoner MD LAB BLOOD ORDERABLES Final Result Performing Organization Address City/State/[facility] Co de Phone Number [facility] [place] [address] * CT Chest W Contrast (05/30/2024 8:11 PM PARTNERSHIP MANAGER) Anatomical Region Laterality Modality Body N/A Computed Tomogra phy 05/31/2024 7:55 AM PARTNERSHIP MANAGER Impressions 05/31/2024 7:55 AM PARTNERSHIP MANAGER No CT cause to explain the patient's dyspnea. Electronically signed by: Tabatha Huff M.D. Narrative 05/31/2024 7:[address] of the chest with intravenous contrast [...] Troponin I high-sensitivity 6-hour (05/29/2024 8:37 PM PARTNERSHIP MANAGER) Trop I hs <4 <=35 ng/L Comment: Interpretive Data For further hscTnI resources including the diagnostic algorithm and an aid in interpretation, copy and paste this link: https://bjhlab.testcatalog.org/show/hsTrop-1 Current Interpretive Data last revised 2019. Trop I hs delta 0 ng/L CERNER BJ Trop I hs interp Insignificant CERNER BJ H Blood 05/29/2024 8:37 PM PARTNERSHIP MANAGER 05/29/2024 8:56 PM PARTNERSHIP MANAGER us Diana Sneed MD LAB BLOOD ORDERABL ES Final Result Performing Organization Address City/[facility]/ZIP Co de [facility] [place] [address] * Troponin I high-sensitivity series (baseline, 2hr, 4hr, 6hr) (05/29/2024 2:29 PM PARTNERSHIP MANAGER) Trop I hs <4 <=35 ng/L Comment: Interpretive Data For further hscTnI resources including the diagnostic algorithm and an aid in interpretation, copy and paste this link: https://bjhlab.testcatalog.org/show/hsTrop-1 Current Interpretive Data last revised 2019. Blood 05/29/2024 2:29 PM PARTNERSHIP MANAGER 05/29/2024 2:56 PM PARTNERSHIP MANAGER Rudi Cash MD LAB BLOOD ORDERABLES Fi nal Result Performing Organization Address [facility] Co de Phone Number SHEILA [facility] [place] [address] * eGFR (05/29/2024 2:29 PM PARTNERSHIP MANAGER) eGFR 65 >=60 mL/min/1. 73 m2 Comment: [...] last reviewed 2021. Blood 05/29/2024 2:29 PM PARTNERSHIP MANAGER 05/29/2024 2:56 PM PARTNERSHIP MANAGER us Diana Sneed MD LAB BLOOD ORDERABL ES Final Result [facility] [place] [address] * (ABNORMAL) Differential, auto (05/29/2024 2:29 PM PARTNERSHIP MANAGER) Neutrophil abs 4.8 1.5 - 6.5 K/cumm Imm gran abs 0.0 0.0 - 0.1 K/cumm CERNER [facility] Lymphocyte abs 3.0 0.8 - 3.3 K/cumm CERNER [facility] Monocyte abs 0.7 0.2 - 0.8 K/cumm [facility] Eosinophil abs 1.2(H) 0.0 - 0.5 K/cumm [facility] Basophil abs 0.1 0.0 - 0.1 K/cumm [facility] Neutrophil pct 49.0 % [facility] Comment: Interpretive Data Percent cell count reference ranges are not reported, since discordance with absolute values may lead to misinterpretation of CBC data. Current Interpretive Data was last revised on 2017. Imm gran pct 0.3 % [facility] Comment: Interpretive Data Percent cell count reference ranges are not reported, since discordance with absolute values may lead to misinterpretation of CBC data. Current Interpretive Data was last revised on 2017. [facility] pct 30.9 % [facility] Comment: Interpretive Data Percent cell count reference ranges are not reported, since discordance with absolute values may lead to misinterpretation of CBC data. Current Interpretive Data was last revised on 2017. Monocyte pct 7.2 % [facility] Comment: Interpretive Data Percent cell count reference ranges are not reported, since discordance with absolute values may lead to misinterpretation of CBC data. Current Interpretive Data was last revised on 2017. Eosinophil pct 12.0 % [facility] Comment: Interpretive Data Percent cell count [...] revised on 2017. Blood 05/29/2024 2:29 PM PARTNERSHIP MANAGER 05/29/2024 2:56 PM PARTNERSHIP MANAGER us Diana Sneed MD LAB BLOOD ORDERABL ES Final Result SHEILA [facility] [place] [address] * Pro B-type natriuretic peptide (05/29/2024 2:29 PM PARTNERSHIP MANAGER) NT-proBNP <50 <=300 pg/mL Comment: Interpretive Comments: [...] Revised Date: 2017. Blood 05/29/2024 2:29 PM PARTNERSHIP MANAGER 05/29/2024 2:56 PM PARTNERSHIP MANAGER Rdui Cash MD LAB BLOOD ORDERABLES Fi nal Result [facility] [place] [address] * CBC with auto differential (05/29/2024 2:29 PM PARTNERSHIP MANAGER) [facility] WBC 9.8 3.8 - 9.9 K/cumm Hgb 15.5 13.0 - 17.5 g/dL [facility] Hct 44.6 38.9 - 50.3 % [facility] Plt 304 150 - 400 K/cumm [facility] MPV 9.1 9.1 - 12.3 fL [facility] RBC 4.97 4.30 - 5.80 M/cumm [facility] MCV 89.7 81.3 - 96.4 fL [facility] MCH 31.2 27.1 - 33.3 pg [facility] MCHC 34.8 32.3 - 35.7 g/dL [facility] RDW CV 13.1 11.1 - 14.9 % [facility] RDW SD 42.5 35.7 - 48.1 fL [facility] NRBC abs 0.00 0.00 - 0.01 K/cumm [facility] Blood 05/29/2024 2:29 PM PARTNERSHIP MANAGER 05/29/2024 2:56 PM PARTNERSHIP MANAGER Rudi Cahs MD LAB BLOOD ORDERABLES Fi nal Result Performing Organization Address City/[facility]/ZIP Co de Phone Number [facility] [place] [address] * (ABNORMAL) Comprehensive metabolic panel (05/29/2024 2:29 PM PARTNERSHIP MANAGER) Sodium 141 135 - 145 mmol/L Potassium, pl 4.0 3.3 - 4.9 mmol/L [facility] Comment:Hemolyzed; Potassium value may be falsely elevated by as much as 0.3-0.5 mmol/L. Suggest redraw and reanalysis. Chloride 102 97 - 110 mmol/L CERNER [facility] CO2 26 22 - 32 mmol/L [facility] Anion gap 13 2 - 15 mmol/L [facility] BUN 16 6 - 25 mg/dL [facility] Creatinine 1.21 0.80 - 1.30 mg/dL [facility] Glucose 107 70 - 199 mg/dL [facility] Comment: Interpretive Data Fasting glucose >/= 126 [...] Calcium 9.4 8.5 - 10.3 mg/dL [facility] Bilirubin, total 0.8 0.1 - 1.2 mg/dL [facility] Protein, pl 7.4 6.5 - 8.5 g/dL [facility] Albumin 4.3 3.5 - 5.0 g/dL [facility] Alk phos 166(H) 40 - 130 Units/L CERNER BJ ALT 28 7 - 55 Units/L CERNER BJ AST 32 10 - 50 Units/L [facility]ERN[facility] Comment:Hemolyzed; result ma y be falsely elevated Blood 05/29/2024 2:29 PM PARTNERSHIP MANAGER 05/29/2024 2:56 PM PARTNERSHIP MANAGER Rudi Cash MD LAB BLOOD ORDERABLES Fi nal Result [facility] [place] [address] * XR Chest PA Lateral 2 Views (05/29/2024 12:29 PM PARTNERSHIP MANAGER) Anatomical Region Laterality Modality Body, Chest N/A Computed Radiogr aphy 05/29/2024 1:17 PM PARTNERSHIP MANAGER Impressions 05/29/2024 1:17 PM PARTNERSHIP MANAGER No priors are available for comparison. Peripheral linear opacities in the lung bases may represent bibasilar atelectasis or trace pulmonary edema. No focal consolidations, pleural effusions, or pneumothorax. Cardiomediastinal silhouette is within normal. Electronically signed by: Mely Catalan M.D. Narrative 05/29/2024 1:17 PM PARTNERSHIP MANAGER EXAMINATION: 2 view chest radiograph Procedure Note [...] Result * ECG 12-LEAD (05/29/2024 12:02 PM PARTNERSHIP MANAGER) Narrative [facility] - 05/29/2024 12:02 PM PARTNERSHIP MANAGER Diana Sneed MD 05/29/2024 12:02 PM ECG [...] Cash MD ECG ORDERABLES Final R esult [facility] * (ABNORMAL) Respiratory pathogen panel Nasopharyngeal (05/29/2024 11:59 AM PARTNERSHIP MANAGER) Pathologist [facility] Influenza A RNA Not Detected Not Detected Influenza B RNA Not Detected Not Detected [facility] RSV RNA Not Detected Not Detected [facility] COVID-19 RNA Not Detected Not Detected [facility] Coronavirus 229E RNA Not Detected Not Detected [facility] Coronavirus HKU1 RNA Not Detected Not Detected [facility] Coronavirus NL63 RNA Not Detected Not Detected [facility] Coronavirus OC43 RNA Not Detected Not Detected [facility] Adenovirus DNA Not Detected Not Detected [facility] Metapneumovirus RNA Not Detected Not Detected [facility] Rhinovirus/Enterov irus RNA Not Detected Not Detected [facility] Parainfluenza 1 RNA Not Detected Not Detected [facility] Parainfluenza 2 RNA Not Detected Not Detected [facility] Parainfluenza 3 RNA Not Detected Not Detected [facility] Parainfluenza 4 RNA Detected(A) Not Detected [facility] B. pertussis DNA Not Detected Not Detected [facility] B. parapertussis DNA Not Detected Not Detected [facility] C. pneumoniae DNA Not Detected Not Detected [facility] M. pneumoniae DNA Not Detected Not Detected [facility] Nasopharyngeal 05/29/2024 11 :59 AM PARTNERSHIP MANAGER 05/29/2024 12:17 PM PARTNERSHIP MANAGER Narrative SHEILA DURANT - 05/29/2024 1:13 PM PARTNERSHIP MANAGER Is the Patient experiencing symptoms consistent with COVID?->Yes Surveillance testing for transplant patient?->No Interpretive Data The ULURU FilmArray Respiratory Panel (RP2.1) assay is a [...] assay has FDA clearance for testing of YARD INSPECTOR swabs. The performance of additional specimen types has been assessed by the performing laboratory. The performance characteristics of this assay have been determined by [facility] Molecular Infectious Disease Laboratory. Current interpretive data was last revised on 22. us Rudi Cash MD LAB MICROBIOLOGY - GENE RAL ORDERABLES Final Result SHEILA [facility] [place] [address] from Last 3 Months Insurance MEDICARE [facility] MEDICARE [employer] [facility] Advance Directives For more information, please contact: [phone] * Full Code (Latest Code Status on File) Date Activated Date Inactivated Comments 05/30/2024 6:59 PM 06/02/2024 3:56 PM Care Teams Optical Worker Relationship Specialty Start Date End Date No, Physician PCP - General 05/29/24
--- OUTSIDE RECORDS SUMMARY | 2024-07-25 10:51 | XMS_ITS | Referral Summary ---
Author Organization [facility] al Address [address] [place] [address] Care Team Providers Care Investor Relations Manager Name Role Phone No, Physician Primary Care Provider Encounters Date Type Department Care Team Description 07/24/2024 Orders Only [facility] Scheduling [address] [place] [address] Suleiman Antoine MD Chronic obstructive pulmonary disease with (acute) exacerbation (HCC) (Primary Dx) 06/04/2024 SHOP/CHAP Initial Outreach [facility] CASE [facility]NAGEMENT [address] [place] [address] Lilian Ribera, [facility] 06/04/2024 SHOP/CHAP Initial Eligibility Review [facility] CASE [facility]NAGEMENT [address] [place] [address] Tuyet Falk, BODY TECHNICIAN/PAINTER 05/29/2024 12:46 PM HEAD CASHIER - 06/02/2024 11:45 AM HEAD CASHIER Hospital Encounter [address] [address] Rudi Cash MD Cohn, MD Mary Aguayo, [...] uit: 1987 Tobacco Cessation:Counseling Given: Not Answered [facility] Utilities Answer Date Recorded In the past 12 months has [employer], oil, or water [employer] threatened to shut off services in your [...] often do you attend chur ch or presybeterian services? Never 06/04/2024 Do you belong to any clubs o r organizations such as sabianist groups, unions, fraternal or athletic groups, or [...] any time in the past 12 m [facility], were you homeless or living in a alf (including now)? No 06/04/2024 Personal Safety Answer Date Recorded Have you ever been in or are you currently in a harmful physical or emotional relationship or is someone making you feel afraid or unsafe? Denies 05/29/2024 Sex and Gender Information Value Date Recorded Sex Assigned at Not on file Legal Sex Male 11:19 AM HEAD CASHIER Gender Identity Not on file Sexual Orientation Not on file Last Filed Vital Signs Vital Sign Reading Time Taken Comments Blood Pressure 156/78 06/02/2024 8:04 AM HEAD CASHIER Pulse 102 06/02/2024 8:04 AM HEAD CASHIER Temperature 36.4 C (97.5 F) 06/02/2024 8:04 AM HEAD CASHIER Respiratory Rate 18 06/02/2024 8:04 AM HEAD CASHIER Oxygen Saturation 97% 06/02/2024 11: 16 AM HEAD CASHIER Inhaled Oxygen Concentration - - Weight 86.1 kg (189 lb 13.1 oz) 05/30/2024 6:59 PM HEAD CASHIER Height 180.3 cm (5' 11 ) 05/30/2024 6:59 PM HEAD CASHIER Body Mass Index 26.47 05/30/2024 6:59 PM HEAD CASHIER Plan of Treatment Not on file Procedures Procedure Name Priority Date/Time Associated Diagnosis Comments POCT GLUCOSE DEVICE Routine 06/02/2024 1 1:28 AM HEAD CASHIER POCT GLUCOSE DEVICE Routine 06/02/2024 7 :21 AM HEAD CASHIER EGFR Routine 06/01/2024 11:12 PM HEAD CASHIER DIFFERENTIAL AUTO Routine 06/01/2024 11: 12 PM HEAD CASHIER CBC WITH AUTO DIFFERENTIAL Routine 06/01/2024 11:12 PM HEAD CASHIER COMPREHENSIVE METABOLIC PANEL Routine 06/01/2024 11:12 PM HEAD CASHIER POCT GLUCOSE DEVICE Routine 06/01/2024 7 :48 PM HEAD CASHIER POCT GLUCOSE DEVICE Routine 06/01/2024 5 :20 PM HEAD CASHIER POCT GLUCOSE DEVICE Routine 06/01/2024 1 1:20 AM HEAD CASHIER POCT GLUCOSE DEVICE Routine 06/01/2024 7 :13 AM HEAD CASHIER EGFR Routine 05/31/2024 9:21 PM HEAD CASHIER DIFFERENTIAL AUTO Routine 05/31/2024 9:2 1 PM HEAD CASHIER CBC WITH AUTO DIFFERENTIAL Routine 05/31/2024 9:21 PM HEAD CASHIER COMPREHENSIVE METABOLIC PANEL Routine 05/31/2024 9:21 PM HEAD CASHIER POCT GLUCOSE DEVICE Routine 05/31/2024 7 :53 PM HEAD CASHIER POCT GLUCOSE DEVICE Routine 05/31/2024 4 :22 PM HEAD CASHIER POCT GLUCOSE DEVICE Routine 05/31/2024 1 1:30 AM HEAD CASHIER EGFR Routine 05/31/2024 8:04 AM HEAD CASHIER DIFFERENTIAL AUTO Routine 05/31/2024 8:0 4 AM HEAD CASHIER CBC WITH AUTO DIFFERENTIAL Routine 05/31/2024 8:04 AM HEAD CASHIER COMPREHENSIVE METABOLIC PANEL Routine 05/31/2024 8:[address] CHEST W CONTRAST IP Routine 05/30/2024 8 :11 PM HEAD CASHIER TROPONIN I HIGH-SENSITIVITY 6-HOUR Timed 05/29/2024 8:37 PM HEAD CASHIER EGFR STAT 05/29/2024 2:29 PM HEAD CASHIER DIFFERENTIAL AUTO STAT 05/29/2024 2:2 9 PM HEAD CASHIER PRO B-TYPE NATRIURETIC PEPTIDE STAT 05/29/2024 2:29 PM HEAD CASHIER TROPONIN I HIGH-SENSITIVITY SERIES (BASELINE, 2HR, 4HR, 6HR) STAT 05/29/2024 2:29 PM HEAD CASHIER CBC WITH AUTO DIFFERENTIAL STAT 05/29/2024 2:29 PM HEAD CASHIER COMPREHENSIVE METABOLIC PANEL STAT 05/29/2024 2:29 PM HEAD CASHIER XR CHEST PA LATERAL 2 VIEWS ED 05/29/2024 12:29 PM HEAD CASHIER ECG 12-LEAD STAT 05/29/2024 12:02 PM HEAD CASHIER RESPIRATORY PATHOGEN PANEL Routine 05/29/2024 11:59 AM HEAD CASHIER from Last 3 Months Results * POCT glucose (06/02/2024 11:28 AM HEAD CASHIER) Glucose, POC 122 70 - 199 mg/dL Blood 06/02/2024 11:2 8 AM HEAD CASHIER 06/02/2024 11:28 AM HEAD CASHIER Stephen Wagoner MD LAB POCT ORDERABLES - DEVIC E Final Result Performing Organization Address City/[facility] Co de Phone Number [facility] [place] [address] * POCT glucose (06/02/2024 7:21 AM HEAD CASHIER) [facility] Glucose, POC 103 70 - 199 mg/dL Blood 06/02/2024 7:21 AM HEAD CASHIER 06/02/2024 7:21 AM HEAD CASHIER Stephen Wagoner MD LAB POCT ORDERABLES - DEVIC E Final Result Performing Organization Address City/[facility] Co de Phone Number [facility] [place] [address] * eGFR (06/01/2024 11:12 PM HEAD CASHIER) eGFR 72 >=60 mL/min/1. 73 m2 Comment: [...] reviewed 2021. Blood 06/01/2024 11:1 2 PM HEAD CASHIER 06/02/2024 12:44 AM HEAD CASHIER Stephen Wagoner MD LAB BLOOD ORDERABLES Final Result Performing Organization Address City/State/[facility] Co de Phone Number [facility] [place] [address] * (ABNORMAL) Differential, auto (06/01/2024 11:12 PM HEAD CASHIER) Neutrophil abs 9.7(H) 1.5 - 6.5 K/cumm Imm gran abs 0.1 0.0 - 0.1 K/cumm [facility] Lymphocyte abs 2.1 0.8 - 3.3 K/cumm [facility] Monocyte abs 1.1(H) 0.2 - 0.8 K/cumm [facility] Eosinophil abs 0.0 0.0 - 0.5 K/cumm [facility] Basophil abs 0.1 0.0 - 0.1 K/cumm [facility] Neutrophil pct 73.9 % [facility] Comment: Interpretive Data Percent cell count reference ranges are not reported, since discordance with absolute values may lead to misinterpretation of CBC data. Current Interpretive Data was last revised on 2017. Imm gran pct 0.7 % [facility] Comment: Interpretive Data Percent cell count reference ranges are not reported, since discordance with absolute values may lead to misinterpretation of CBC data. Current Interpretive Data was last revised on 2017. Lymphocyte pct 15.9 % [facility] Comment: Interpretive Data Percent cell count reference ranges are not reported, since discordance with absolute values may lead to misinterpretation of CBC data. Current Interpretive Data was last revised on 2017. Monocyte pct 8.7 % [facility] Comment: Interpretive Data Percent cell count reference ranges are not reported, since discordance with absolute values may lead to misinterpretation of CBC data. Current Interpretive Data was last revised on 2017. Eosinophil pct 0.3 % [facility] Comment: Interpretive Data Percent cell count reference ranges are not reported, since discordance with absolute values may lead to misinterpretation of CBC data. Current Interpretive Data was last revised on 2017. Basophil pct 0.5 % [facility] Comment: Interpretive Data Percent cell count reference ranges are not reported, since discordance with absolute values may lead to misinterpretation of CBC data. Current Interpretive Data was last revised on 2017. Blood 06/01/2024 11:1 2 PM HEAD CASHIER 06/02/2024 12:43 AM HEAD CASHIER us Stephen Wagoner MD LAB BLOOD ORDERABLES Final Result [facility] Department [place] [address] * (ABNORMAL) CBC with auto differential (06/01/2024 11:12 PM HEAD CASHIER) WBC 13.2(H) 3.8 - 9.9 K/cumm Hgb 13.6 13.0 - 17.5 g/dL [facility] Hct 39.2 38.9 - 50.3 % [facility] Plt 350 150 - 400 K/cumm [facility] MPV 9.6 9.1 - 12.3 fL [facility] RBC 4.37 4.30 - 5.80 M/cumm [facility] MCV 89.7 81.3 - 96.4 fL [facility] MCH 31.1 27.1 - 33.3 pg [facility] MCHC 34.7 32.3 - 35.7 g/dL [facility] RDW CV 12.7 11.1 - 14.9 % [facility] RDW SD 41.9 35.7 - 48.1 fL [facility] NRBC abs 0.00 0.00 - 0.01 K/cumm [facility] Blood 06/01/2024 11:1 2 PM HEAD CASHIER 06/02/2024 12:43 AM HEAD CASHIER Stephen Wagoner MD LAB BLOOD ORDERABLES Final Result [facility] Department [place] [address] * Comprehensive metabolic panel (06/01/2024 11:12 PM HEAD CASHIER) Sodium 140 135 - 145 mmol/L Potassium, pl 4.2 3.3 - 4.9 mmol/L [facility] Chloride 103 97 - 110 mmol/L [facility] CO2 22 22 - 32 mmol/L [facility] Anion gap 15 2 - 15 mmol/L [facility] BUN 24 6 - 25 mg/dL [facility] Creatinine 1.12 0.80 - 1.30 mg/dL [facility] Glucose 177 70 - 199 mg/dL [facility] Comment: Interpretive Data Fasting glucose >/= 126 [...] 8.5 - 10.3 mg/dL [facility] Bilirubin, total 0.5 0.1 - 1.2 mg/dL [facility] Protein, pl 6.9 6.5 - 8.5 g/dL [facility] Albumin 4.0 3.5 - 5.0 g/dL [facility] Alk phos 130 40 - 130 Units/L [facility] ALT 22 7 - 55 Units/L [facility] AST 22 10 - 50 Units/L [facility] Blood 06/01/2024 11:1 2 PM HEAD CASHIER 06/02/2024 12:44 AM HEAD CASHIER Stephen Wagoner MD LAB BLOOD ORDERABLES Final Result Performing Organization Address City/[facility] Co de Phone Number [facility] [address] * POCT glucose (06/01/2024 7:48 PM HEAD CASHIER) Glucose, POC 159 70 - 199 mg/dL Blood 06/01/2024 7:48 PM HEAD CASHIER 06/01/2024 7:48 PM HEAD CASHIER Stephen Wagoner MD LAB POCT ORDERABLES - DEVIC E Final Result Performing Organization Address City/[facility] Co de Phone Number [facility] [address] * POCT glucose (06/01/2024 5:20 PM HEAD CASHIER) Glucose, POC 189 70 - 199 mg/dL Blood 06/01/2024 5:20 PM HEAD CASHIER 06/01/2024 5:20 PM HEAD CASHIER Stephen Wagoner MD LAB POCT ORDERABLES - DEVIC E Final Result Performing Organization Address [facility] [place] [address] * POCT glucose (06/01/2024 11:20 AM HEAD CASHIER) Glucose, POC 150 70 - 199 mg/dL Blood 06/01/2024 11:2 0 AM HEAD CASHIER 06/01/2024 11:20 AM HEAD CASHIER Stephen Wagoner MD LAB POCT ORDERABLES - DEVIC E Final Result Performing Organization Address City/[facility] Co de Phone Number [facility] [place] [address] * POCT glucose (06/01/2024 7:13 AM HEAD CASHIER) Glucose, POC 83 70 - 199 mg/dL Blood 06/01/2024 7:13 AM HEAD CASHIER 06/01/2024 7:13 AM HEAD CASHIER Stephen Wagoner MD LAB POCT ORDERABLES - DEVIC E Final Result Performing Organization Address [facility] de Phone Number [facility] [place] [address] * eGFR (05/31/2024 9:21 PM HEAD CASHIER) eGFR 70 >=60 mL/min/1. 73 m2 Comment: [...] last reviewed 2021. Blood 05/31/2024 9:21 PM HEAD CASHIER 05/31/2024 11:01 PM HEAD CASHIER us Stephen Wagoner MD LAB BLOOD ORDERABLES Final Result [facility] Department [place] [address] * (ABNORMAL) Differential, auto (05/31/2024 9:21 PM HEAD CASHIER) Neutrophil abs 11.3(H) 1.5 - 6.5 K/cumm Imm gran abs 0.1 0.0 - 0.1 K/cumm [facility] Lymphocyte abs 3.0 0.8 - 3.3 K/cumm [facility] Monocyte abs 1.3(H) 0.2 - 0.8 K/cumm [facility] Eosinophil abs 0.0 0.0 - 0.5 K/cumm [facility] Basophil abs 0.1 0.0 - 0.1 K/cumm [facility] Neutrophil pct 71.8 % [facility] Comment: Interpretive Data Percent cell count reference ranges are not reported, since discordance with absolute values may lead to misinterpretation of CBC data. Current Interpretive Data was last revised on 2017. Imm gran pct 0.6 % [facility] Comment: Interpretive Data Percent cell count reference ranges are not reported, since discordance with absolute values may lead to misinterpretation of CBC data. Current Interpretive Data was last revised on 2017. Lymphocyte pct 18.7 % [facility] Comment: Interpretive Data Percent cell count reference ranges are not reported, since discordance with absolute values may lead to misinterpretation of CBC data. Current Interpretive Data was last revised on 2017. Monocyte pct 8.3 % [facility] Comment: Interpretive Data Percent cell count reference ranges are not reported, since discordance with absolute values may lead to misinterpretation of CBC data. Current Interpretive Data was last revised on 2017. Eosinophil pct 0.2 % [facility] Comment: Interpretive Data Percent cell count reference ranges are not reported, since discordance with absolute values may lead to misinterpretation of CBC data. Current Interpretive Data was last revised on 2017. Basophil pct 0.4 % [facility] Comment: Interpretive Data Percent cell count reference ranges are not reported, since discordance with absolute values may lead to misinterpretation of CBC data. Current Interpretive Data was last revised on 2017. Blood 05/31/2024 9:21 PM HEAD CASHIER 05/31/2024 11:02 PM HEAD CASHIER Stephen Wagoner MD LAB BLOOD ORDERABLES Final Result Performing Organization Address City/[facility]/ZIP Co de Phone Number [facility] [place] [address] * (ABNORMAL) CBC with auto differential (05/31/2024 9:21 PM HEAD CASHIER) WBC 15.8(H) 3.8 - 9.9 K/cumm Hgb 14.4 13.0 - 17.5 g/dL [facility] Hct 41.5 38.9 - 50.3 % [facility] Plt 359 150 - 400 K/cumm [facility] MPV 9.5 9.1 - 12.3 fL [facility] RBC 4.49 4.30 - 5.80 M/cumm [facility] MCV 92.4 81.3 - 96.4 fL [facility] MCH 32.1 27.1 - 33.3 pg [facility] MCHC 34.7 32.3 - 35.7 g/dL [facility] RDW CV 12.9 11.1 - 14.9 % [facility] RDW SD 43.8 35.7 - 48.1 fL [facility] NRBC abs 0.00 0.00 - 0.01 K/cumm [facility] Blood 05/31/2024 9:21 PM HEAD CASHIER 05/31/2024 11:02 PM HEAD CASHIER Stephen Wagoner MD LAB BLOOD ORDERABLES Final Result Performing Organization Address City/[facility]/ZIP Co de Phone Number [facility] Department [place] [address] * (ABNORMAL) Comprehensive metabolic panel (05/31/2024 9:21 PM HEAD CASHIER) Sodium 141 135 - 145 mmol/L Potassium, pl 3.8 3.3 - 4.9 mmol/L [facility] Chloride 103 97 - 110 mmol/L [facility] CO2 23 22 - 32 mmol/L [facility] Anion gap 15 2 - 15 mmol/L [facility] BUN 22 6 - 25 mg/dL [facility] Creatinine 1.14 0.80 - 1.30 mg/dL [facility] Glucose 158 70 - 199 mg/dL [facility] Comment: Interpretive Data Fasting glucose >/= 126 [...] 8.5 - 10.3 mg/dL [facility] Bilirubin, total 0.5 0.1 - 1.2 mg/dL [facility] Protein, pl 7.5 6.5 - 8.5 g/dL [facility] Albumin 4.6 3.5 - 5.0 g/dL [facility] Alk phos 145(H) 40 - 130 Units/L [facility] ALT 24 7 - 55 Units/L [facility] AST 15 10 - 50 Units/L [facility] Blood 05/31/2024 9:21 PM HEAD CASHIER 05/31/2024 11:01 PM HEAD CASHIER us Stephen Wagoner MD LAB BLOOD ORDERABLES Final Result [facility] Department [place] [address] * (ABNORMAL) POCT glucose (05/31/2024 7:53 PM HEAD CASHIER) Glucose, POC 275(H) 70 - 199 mg/dL Blood 05/31/2024 7:53 PM HEAD CASHIER 05/31/2024 7:53 PM HEAD CASHIER Stephen Wagoner MD LAB POCT ORDERABLES - DEVIC E Final Result Performing Organization Address City/[facility] Co de Phone Number [facility] [address] * (ABNORMAL) POCT glucose (05/31/2024 4:22 PM HEAD CASHIER) Glucose, POC 202(H) 70 - 199 mg/dL Blood 05/31/2024 4:22 PM HEAD CASHIER 05/31/2024 4:22 PM HEAD CASHIER Stephen Wagoner MD LAB POCT ORDERABLES - DEVIC E Final Result Performing Organization Address [facility] Co de Phone Number [facility] [address] * POCT glucose (05/31/2024 11:30 AM HEAD CASHIER) Glucose, POC 136 70 - 199 mg/dL Blood 05/31/2024 11:3 0 AM HEAD CASHIER 05/31/2024 11:30 AM HEAD CASHIER Stephen Wagoner MD LAB POCT ORDERABLES - DEVIC E Final Result Performing Organization Address [facility] Co de Phone Number [facility] [address] * eGFR (05/31/2024 8:04 AM HEAD CASHIER) eGFR 70 >=60 mL/min/1. 73 m2 Comment: [...] last reviewed 2021. Blood 05/31/2024 8:04 AM HEAD CASHIER 05/31/2024 8:44 AM HEAD CASHIER Stephen Wagoner MD LAB BLOOD ORDERABLES Final Result [facility] [place] [address] * (ABNORMAL) Differential, auto (05/31/2024 8:04 AM HEAD CASHIER) Neutrophil abs 6.5 1.5 - 6.5 K/cumm Imm gran abs 0.1 0.0 - 0.1 K/cumm [facility] Lymphocyte abs 3.8(H) 0.8 - 3.3 K/cumm [facility] Monocyte abs 1.0(H) 0.2 - 0.8 K/cumm [facility] Eosinophil abs 0.2 0.0 - 0.5 K/cumm [facility] Basophil abs 0.1 0.0 - 0.1 K/cumm [facility] Neutrophil pct 56.5 % [facility] Comment: Interpretive Data Percent cell count reference ranges are not reported, since discordance with absolute values may lead to misinterpretation of CBC data. Current Interpretive Data was last revised on 2017. Imm gran pct 0.5 % [facility] Comment: Interpretive Data Percent cell count reference ranges are not reported, since discordance with absolute values may lead to misinterpretation of CBC data. Current Interpretive Data was last revised on 2017. Lymphocyte pct 32.8 % [facility] Comment: Interpretive Data Percent cell count reference ranges are not reported, since discordance with absolute values may lead to misinterpretation of CBC data. Current Interpretive Data was last revised on 2017. Monocyte pct 8.4 % [facility] Comment: Interpretive Data Percent cell count reference ranges are not reported, since discordance with absolute values may lead to misinterpretation of CBC data. Current Interpretive Data was last revised on 2017. Eosinophil pct 1.3 % [facility] Comment: Interpretive Data Percent cell count reference ranges are not reported, since discordance with absolute values may lead to misinterpretation of CBC data. Current Interpretive Data was last revised on 2017. Basophil pct 0.5 % [facility] Comment: Interpretive Data Percent cell count reference ranges are not reported, since discordance with absolute values may lead to misinterpretation of CBC data. Current Interpretive Data was last revised on 2017. Blood 05/31/2024 8:04 AM HEAD CASHIER 05/31/2024 8:39 AM HEAD CASHIER Stephen Wagoner MD LAB BLOOD ORDERABLES Final Result [facility] [place] [address] * (ABNORMAL) CBC with auto differential (05/31/2024 8:04 AM HEAD CASHIER) WBC 11.6(H) 3.8 - 9.9 K/cumm Hgb 13.5 13.0 - 17.5 g/dL [facility] Hct 39.0 38.9 - 50.3 % [facility] Plt 285 150 - 400 K/cumm [facility] MPV 9.2 9.1 - 12.3 fL [facility] RBC 4.29(L) 4.30 - 5.80 M/cumm [facility] MCV 90.9 81.3 - 96.4 fL [facility] MCH 31.5 27.1 - 33.3 pg [facility] MCHC 34.6 32.3 - 35.7 g/dL [facility] RDW CV 12.8 11.1 - 14.9 % [facility] RDW SD 42.2 35.7 - 48.1 fL [facility] NRBC abs 0.00 0.00 - 0.01 K/cumm [facility] Blood 05/31/2024 8:04 AM HEAD CASHIER 05/31/2024 8:39 AM HEAD CASHIER Stephen Wagoner MD LAB BLOOD ORDERABLES Final Result [facility] [place] [address] * Comprehensive metabolic panel (05/31/2024 8:04 AM HEAD CASHIER) Sodium 140 135 - 145 mmol/L Potassium, pl 3.6 3.3 - 4.9 mmol/L [facility] Chloride 107 97 - 110 mmol/L [facility] CO2 24 22 - 32 mmol/L [facility] Anion gap 9 2 - 15 mmol/L [facility] BUN 18 6 - 25 mg/dL [facility] Creatinine 1.14 0.80 - 1.30 mg/dL [facility] Glucose 95 70 - 199 mg/dL [facility] Comment: Interpretive Data Fasting glucose >/= 126 [...] 8.5 - 10.3 mg/dL [facility] Bilirubin, total 0.7 0.1 - 1.2 mg/dL [facility] Protein, pl 6.6 6.5 - 8.5 g/dL [facility] Albumin 3.9 3.5 - 5.0 g/dL [facility] Alk phos 130 40 - 130 Units/L [facility] ALT 20 7 - 55 Units/L [facility] BJ AST 16 10 - 50 Units/L [facility] Blood 05/31/2024 8:04 AM HEAD CASHIER 05/31/2024 8:39 AM HEAD CASHIER us Stephen Wagoner MD LAB BLOOD ORDERABLES Final Result [facility] [place] [address] * CT Chest W Contrast (05/30/2024 8:11 PM HEAD CASHIER) Anatomical Region Laterality Modality Body N/A Computed Tomogra phy 05/31/2024 7:55 AM HEAD CASHIER Impressions 05/31/2024 7:[address] cause to explain the patient's dyspnea. Electronically signed by: Tabatha Huff M.D. Narrative 05/31/2024 7:[address] of the chest with intravenous contrast [...] Troponin I high-sensitivity 6-hour (05/29/2024 8:37 PM HEAD CASHIER) Trop I hs <4 <=35 ng/L Comment: Interpretive Data For further hscTnI resources including the diagnostic algorithm and an aid in interpretation, copy and paste this link: [email or web address]/show/[email or web address] Current Interpretive Data last revised 2019. Trop I hs delta 0 ng/L [facility] Trop I hs interp Insignificant [facility] Blood 05/29/2024 8:37 PM HEAD CASHIER 05/29/2024 8:56 PM HEAD CASHIER Diana Sneed MD LAB BLOOD ORDERABL ES Final Result [facility] [place] [address] * Troponin I high-sensitivity series (baseline, 2hr, 4hr, 6hr) (05/29/2024 2:29 PM HEAD CASHIER) Trop I hs <4 <=35 ng/L Comment: Interpretive Data For further hscTnI resources including the diagnostic algorithm and an aid in interpretation, copy and paste this link: [email or web address]/show/[email or web address] Current Interpretive Data last revised 2019. Blood 05/29/2024 2:29 PM HEAD CASHIER 05/29/2024 2:56 PM HEAD CASHIER Rudi Cash MD LAB BLOOD ORDERABLES Fi nal Result Performing Organization Address [facility] de Phone Number [facility] [place] [address] * eGFR (05/29/2024 2:29 PM HEAD CASHIER) eGFR 65 >=60 mL/min/1. 73 m2 Comment: [...] last reviewed 2021. Blood 05/29/2024 2:29 PM HEAD CASHIER 05/29/2024 2:56 PM HEAD CASHIER Diana Sneed MD LAB BLOOD ORDERABL ES Final Result Performing Organization Address [facility] Co de Phone Number [facility] [place] [address] * (ABNORMAL) Differential, auto (05/29/2024 2:29 PM HEAD CASHIER) Neutrophil abs 4.8 1.5 - 6.5 K/cumm Imm gran abs 0.0 0.0 - 0.1 K/cumm [facility] Lymphocyte abs 3.0 0.8 - 3.3 K/cumm [facility] Monocyte abs 0.7 0.2 - 0.8 K/cumm [facility] Eosinophil abs 1.2(H) 0.0 - 0.5 K/cumm [facility] Basophil abs 0.1 0.0 - 0.1 K/cumm [facility] Neutrophil pct 49.0 % [facility] Comment: Interpretive Data Percent cell count reference ranges are not reported, since discordance with absolute values may lead to misinterpretation of CBC data. Current Interpretive Data was last revised on 2017. Imm gran pct 0.3 % [facility] Comment: Interpretive Data Percent cell count reference ranges are not reported, since discordance with absolute values may lead to misinterpretation of CBC data. Current Interpretive Data was last revised on 2017. Lymphocyte pct 30.9 % [facility] Comment: Interpretive Data Percent cell count reference ranges are not reported, since discordance with absolute values may lead to misinterpretation of CBC data. Current Interpretive Data was last revised on 2017. Monocyte pct 7.2 % [facility] Comment: Interpretive Data Percent cell count reference ranges are not reported, since discordance with absolute values may lead to misinterpretation of CBC data. Current Interpretive Data was last revised on 2017. Eosinophil pct 12.0 % [facility] Comment: Interpretive Data Percent cell count reference ranges are not reported, since discordance with absolute values may lead to misinterpretation of CBC data. Current Interpretive Data was last revised on 2017. Basophil pct 0.6 % [facility] Comment: Interpretive Data Percent cell count reference ranges are not reported, since discordance with absolute values may lead to misinterpretation of CBC data. Current Interpretive Data was last revised on 2017. Blood 05/29/2024 2:29 PM HEAD CASHIER 05/29/2024 2:56 PM HEAD CASHIER us Diana Sneed MD LAB BLOOD ORDERABL ES Final Result [facility] [place] [address] * Pro B-type natriuretic peptide (05/29/2024 2:29 PM HEAD CASHIER) NT-proBNP <50 <=300 pg/mL Comment: Interpretive Comments: [...] Revised Date: 2017. Blood 05/29/2024 2:29 PM HEAD CASHIER 05/29/2024 2:56 PM HEAD CASHIER us Rudi Cash MD LAB BLOOD ORDERABLES nal Result [facility] Department of Laboratories [place], [place] [id number] * CBC with auto differential (05/29/2024 2:29 PM HEAD CASHIER) WBC 9.8 3.8 - 9.9 K/cumm Hgb 15.5 13.0 - 17.5 g/dL [facility] Hct 44.6 38.9 - 50.3 % [facility] Plt 304 150 - 400 K/cumm [facility] MPV 9.1 9.1 - 12.3 fL [facility] RBC 4.97 4.30 - 5.80 M/cumm [facility] MCV 89.7 81.3 - 96.4 fL [facility] MCH 31.2 27.1 - 33.3 pg [facility] MCHC 34.8 32.3 - 35.7 g/dL [facility] RDW CV 13.1 11.1 - 14.9 % [facility] RDW SD 42.5 35.7 - 48.1 fL [facility] NRBC abs 0.00 0.00 - 0.01 K/cumm [facility] Blood 05/29/2024 2:29 PM HEAD CASHIER 05/29/2024 2:56 PM HEAD CASHIER Rudi Cash MD LAB BLOOD ORDERABLES nal Result [facility] [place] [address] * (ABNORMAL) Comprehensive metabolic panel (05/29/2024 2:29 PM HEAD CASHIER) Sodium 141 135 - 145 mmol/L Potassium, pl 4.0 3.3 - 4.9 mmol/L [facility] Comment:Hemolyzed; Potassium value may be falsely elevated by as much as 0.3-0.5 mmol/L. Suggest redraw and reanalysis. Chloride 102 97 - 110 mmol/L [facility] CO2 26 22 - 32 mmol/L [facility] Anion gap 13 2 - 15 mmol/L [facility] BUN 16 6 - 25 mg/dL [facility] Creatinine 1.21 0.80 - 1.30 mg/dL [facility] Glucose 107 70 - 199 mg/dL [facility] Comment: Interpretive Data Fasting glucose >/= 126 [...] 2022. Calcium 9.4 8.5 - 10.3 mg/dL [facility] Bilirubin, total 0.8 0.1 - 1.2 mg/dL [facility] Protein, pl 7.4 6.5 - 8.5 g/dL [facility] Albumin 4.3 3.5 - 5.0 g/dL [facility] Alk phos 166(H) 40 - 130 Units/L [facility] ALT 28 7 - 55 Units/L [facility] AST 32 10 - 50 Units/L [facility] Comment:Hemolyzed; result ma y be falsely elevated Blood 05/29/2024 2:29 PM HEAD CASHIER 05/29/2024 2:56 PM HEAD CASHIER us Rudi Cash MD LAB BLOOD ORDERABLES Fi nal Result [facility] Department [place] [address] * XR Chest PA Lateral 2 Views (05/29/2024 12:29 PM HEAD CASHIER) Anatomical Region Laterality Modality Body, Chest N/A Computed Radiogr aphy 05/29/2024 1:17 PM HEAD CASHIER Impressions 05/29/2024 1:17 PM HEAD CASHIER No priors are available for comparison. Peripheral linear opacities in the lung bases may represent bibasilar atelectasis or trace pulmonary edema. No focal consolidations, pleural effusions, or pneumothorax. Cardiomediastinal silhouette is within normal. Electronically signed by: Mely Catalan M.D. Narrative 05/29/2024 1:17 PM HEAD CASHIER EXAMINATION: 2 view chest radiograph Procedure Note [...] Result * ECG 12-LEAD (05/29/2024 12:02 PM HEAD CASHIER) Narrative [facility] - 05/29/2024 12:02 PM HEAD CASHIER Diana Sneed MD 05/29/2024 12:02 PM ECG [...] MD ECG ORDERABLES Final R esult [facility] * (ABNORMAL) Respiratory pathogen panel Nasopharyngeal (05/29/2024 11:59 AM HEAD CASHIER) Pathologist [facility] Influenza A RNA Not Detected Not Detected Influenza B RNA Not Detected Not Detected [facility] RSV RNA Not Detected Not Detected [facility] COVID-19 RNA Not Detected Not Detected [facility] Coronavirus 229E RNA Not Detected Not Detected [facility] Coronavirus HKU1 RNA Not Detected Not Detected [facility] Coronavirus NL63 RNA Not Detected Not Detected [facility] Coronavirus OC43 RNA Not Detected Not Detected [facility] Adenovirus DNA Not Detected Not Detected [facility] Metapneumovirus RNA Not Detected Not Detected [facility] Rhinovirus/Enterov irus RNA Not Detected Not Detected [facility] Parainfluenza 1 RNA Not Detected Not Detected [facility] Parainfluenza 2 RNA Not Detected Not Detected [facility] Parainfluenza 3 RNA Not Detected Not Detected [facility] Parainfluenza 4 RNA Detected(A) Not Detected [facility] B. pertussis DNA Not Detected Not Detected [facility] B. parapertussis DNA Not Detected Not Detected [facility] C. pneumoniae DNA Not Detected Not Detected [facility] M. pneumoniae DNA Not Detected Not Detected [facility] Nasopharyngeal 05/29/2024 11 :59 AM HEAD CASHIER 05/29/2024 12:17 PM HEAD CASHIER Narrative [facility] - 05/29/2024 1:13 PM HEAD CASHIER Is the Patient experiencing symptoms consistent with COVID?->Yes Surveillance testing for transplant patient?->No Interpretive Data The DermLink FilmArray Respiratory Panel (RP2.1) assay is a [...] assay has FDA clearance for testing of ENVIRONMENTAL STUDIES FACULTY MEMBER swabs. The performance of additional specimen types has been assessed by the performing laboratory. The performance characteristics of this assay have been determined by [facility] Molecular Infectious Disease Laboratory. Current interpretive data was last revised on 22. Rudi Cash MD LAB MICROBIOLOGY - [facility] ORDERABLES Final Result [facility] [place] [address] from Last 3 Months Insurance MEDICARE [facility] MEDICARE [facility] Advance Directives For more information, please contact: [phone] * Full Code (Latest Code Status on File) Date Activated Date Inactivated Comments 05/30/2024 6:59 PM 06/02/2024 3:56 PM Care Teams Investor Relations Manager Relationship Specialty Start Date End Date No, Physician PCP - General 05/29/24
--- OUTSIDE RECORDS SUMMARY | 2024-07-25 10:51 | XMS_ITS | Encounter Summary ---
Author Organization [facility] Address [address] [place] [address] Phone Care Team Providers Care Director Of Operations Home Health Name Role Phone No, Physician Primary Care Provider [phone] Encounter Details Date Type Department Care Team (Late st Contact Info) Description 07/24/2024 Orders Only [facility] Scheduling [address] [place] [address] Suleiman Antoine MD [address] [place] [address] Chronic obstructive pulmonary disease with (acute) exacerbation (HCC) (Primary Dx) Social History Tobacco Use Types Packs/Day Years Used Date Smoking Tobacco: Former Cigarettes Q uit: 1987 [facility] Utilities Answer Date Recorded In the past 12 months has [employer] electric, gas, oil, or water company threatened [...] often do you attend chur ch or buddhist services? Never 06/04/2024 Do you belong to any clubs o r organizations such as anabaptist groups, unions, fraternal or athletic groups, or [...] in the past 12 m [facility], were you homeless or living in a senior living (including now)? No 06/04/2024 Personal Safety Answer Date Recorded Have you ever been in or are you currently in a harmful physical or emotional relationship or is someone making you feel afraid or unsafe? 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
--- NOTE | 2024-07-25 12:07 | PC.NURSE ---
Pt. placed on BiPAP with RT at bedside.
[2024-07-25] MEDS: LORazepam INJ (*CRX) 2 MG/ML VIAL 0.5 MG IV PUSH (13:06)
--- NOTE | 2024-07-25 14:14 | PC.NURSE ---
Pt. RR 44. Breathing labored. Abdominal breathing. BRAKE SHOE REBUILDER May notified and to bedside to assess pt.
--- NOTE | 2024-07-25 14:21 | ECG_ITS ---
Test Date: 2024-07-25 14:27:53 Measurements Intervals [place] Rate: 123 P: 71 [place]: 156 QRS: 76 QRSD: 90 T: 64 QT: 322 QTc: 462 Interpretive Statements SINUS TACHYCARDIA Electronically Signed On 07-26-2024 10:43:54 CDT by Isai Sylvester M.D.
--- NOTE | 2024-07-25 14:21 | PC.NURSE ---
Pt. c/o new onset L. sided CP that started during his breathing treatment. Verbal order given for EKG and 3 hour troponin.
--- NOTE | 2024-07-25 14:25 | PC.NURSE ---
Dr. Hayes at bedside assessing pt.
[2024-07-25 14:45] LABS: HCO3 VBG 19.1 mEq/l (24.0-30.0); PCO2 VBG 33.5 mmHg (42.0-48.0); PO2 VBG 92.8 mmHg (35.0-45.0); pH VBG 7.374 (7.300-7.400)
[2024-07-25 14:47] LABS: Device NON-INVASIVE VENT; Fractional Inspired Oxygen 50 %
--- NOTE | 2024-07-25 14:47 | PC.NURSE ---
Hospitalist, Farzana NESBITT at bedside assessing pt.
[2024-07-25] MEDS: MAGNESIUM SULF 2 GM/WATER 50ML 2 GM/50 ML BAG IVPB (15:04)
[2024-07-25] MEDS: KETAMINE HCL IV CONT (15:10)
[2024-07-25] MEDS: SODIUM CHLORIDE 0.9% IV CONT (15:10)
[2024-07-25 15:14] LABS: Troponin I < 0.012 ng/mL (0.000-0.034)
[2024-07-25 15:20] LABS: Influenza A QL RT-PCR Negative (Negative); Influenza B QL RT-PCR Negative (Negative); RSV RNA, RT-PCR Negative (Negative); SARS-CoV-2 RNA PCR Negative (Negative)
[2024-07-25] MEDS: MIDAZOLAM 100MG/NS 100ML(*CRX) 100 MG/100 ML BAG IV CONT (16:50)
--- NOTE | 2024-07-25 16:58 | PC.NURSE ---
1610: Dr. Hayes, RT, TIRE SPOTTER May and this RN at bedside preparing to intubate. Pt. on BiPAP at 50%. Crash cart at bedside, AED pads on pt. VSS. 2x patent IVs. BVM ready and suction set up. 1619: Per Dr. Hayes verbal order given, 200mg ketamine administered slow IV push. 1624: Per Dr. Hayes verbal order given, 100mg rocuronium administered IV push. 1625: Successful intubation by Dr. Hayes. ETT 8.0 24 at the lip. Gold color change, equal chest rise and fall, bilateral breath sounds auscultated.
--- NOTE | 2024-07-25 17:00 | PC.NURSE ---
Addendum entered by Shu Miguel RN 07/25/24 17:08: Event should be timed for today at 1600. Original Note: Pt. continues to be tachypneic, abdominal breathing. TRAFFIC SURVEY TECHNICIAN May and Dr. Hayes aware. Per MD, set up for intubation. at bedside notified. All questions answered. Pt. brought out to WR.
[2024-07-25 17:12] LABS: Alveolar/Arterial O2 Gradient 115.6 mmHg; Fractional Inspired Oxygen 100 %; HCO3 ABG 21.5 mEq/l (22.0-26.0); Oxygen Content ABG 25.4 %vol (16.0-22.0); Oxygen Saturation ABG 99.9 % (95.0-100.0); PCO2 ABG 53.9 mmHg (35.0-45.0); PO2 ABG 543.5 mmHg (80.0-100.0); PO2 FiO2 Ratio Arterial Blood 5.43 %; Total Hemoglobin 17.2 g/dL (12.0-18.0)
[2024-07-25 17:15] LABS: Device VENTILATOR; Modified Allen's Test Pass; Site Drawn RIGHT RADIAL; pH ABG 7.218 (7.350-7.450)
[2024-07-25 17:16] LABS: Arterial Blood Gas PEEP 5 cmH2O; Arterial Blood Gas Vent Mode CMV; Arterial Blood Gas Ventilator rate 14 /MIN
[2024-07-25 17:17] LABS: Arterial Blood Gas Tidal Volume 400 ml
[2024-07-25] MEDS: MIDAZOLAM HCL (*CRX) 2 MG/2 ML VIAL IV PUSH ×2 (17:28→18:25)
[2024-07-25] MEDS: fentaNYL CITRATE INJ (*CRX) 100 MCG/2 ML VIAL IV PUSH ×2 (17:31→18:24)
--- NOTE | 2024-07-25 17:40 | PC.NURSE ---
Pt. to CT with this RN and RT at bedside. Pt. on a monitor.
--- NOTE | 2024-07-25 18:15 | PC.NURSE ---
Pt. Ann Rivero brought back to bedside. Questions answered by this RN.
[2024-07-25] MEDS: FENTANYL 2,500MCG/NS250ML(*CRX 2,500 MCG/250 ML BAG IV CONT (18:17)
[2024-07-25] MEDS: AZITHROMYCIN 500 MG/NS 250 ML 500 MG/250 ML BAG 250 MG IVPB (18:25)
--- NOTE | 2024-07-25 18:30 | PC.NURSE ---
Pt. agitated, shaking his head back and forth. Pt. is tachycardic and hypertensive. Per Dr. Hayes, pt. verbal order given for IV push sedation medication and verbal order given to titrate up on sedation infusions. See MAR.
--- NOTE | 2024-07-25 18:38 | PC.NURSE ---
Per results of CT scan and verbal order by Dr. Hayes, ETT pulled back to 24 at the lip. ETT had moved to 27 at the lip.
--- NOTE | 2024-07-25 19:07 | P.HP_ITS ---
H&P: HPI History of Present Illness Date/Time: 07/25/24 19:07 Chief Complaint: Shortness of Breath Narrative: 68 y/o M presents here with shortness of breath with PMH of allergic asthma, former smoker, IBS, HLD, GERD, HTN, Raynaud's, and JEISON. The patient presents here with shortness of breath. He reports on Tuesday he was helping his family member move 3 bags of gravel. Immediately after exerting himself he developed a cough. This has continued to worsen over the last few days despite using breathing treatments at home. He denies fever, chest pain, nausea, vomiting, diarrhea, rhinorrhea or congestion. The patient recently established with pulmonology in March of 2024 due to concerns for COPD. However, PFT testing in March of 2024 showed normal spirometry. He reports he did utilize a nebulizer prior to the PFT testing which they were told was okay as long as that was the 4 hours prior. Per review pulmonary notes, they are more in favor of allergic asthma versus COPD. 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 However did continue to heavily smoke marijuana until December when he was admitted in [place]. Initial VS at presentation: 97.7? F, HR 92, R 32, 141/77, and 80% on room air. Now intubated on mechanical ventilation. ED workup showed: WBC 13.6, no anemia, negative D-dimer, normal coags, no significant electrolyte derangements, creatinine 1.28 and and GFR 56, glucose 118, troponin negative x2, BNP 102, viral PCR negative. CXR showed no acute cardiopulmonary disease. Chest CT showed minimal bilateral basal atelectasis with minimal effusion, ET tube at the tip of the jose, left kidney stone. Review of Systems Review of Systems: All systems reviewed & are unremarkable except as noted in HPI and below [facility] Past Medical History Medical History (Updated 07/25/24 @ 19:36 by Farzana Rodriguez, LAZ) Allergic asthma Tick bite Fatigue Acute hypoxic respiratory failure Inflamed acrochordon (~03/2024) red inflamed tag right axilla 0.2 cm excised 03/20/2024 Elevated fasting glucose (03/06/24) fasting glucose 106 with GFR 72 on 03/06/2024. Chronic cough Personal history of tobacco use 2 packs per day for 23 years with patient stopping 1988. Irritable bowel syndrome with diarrhea Mixed hyperlipidemia Cholesterol 145, triglycerides 99, HDL 50, LDL 75 on 05/10/2023. Cholesterol 162, triglycerides 86, HDL 41, LDL 105 on 03/06/2024. Seasonal allergic rhinitis Urticaria Overweight (BMI 25.0-29.9) Acute bronchitis (~05/29/24) Chest x-ray normal on 08/18/2023. acute bronchitis with parainfluenza infection 05/29/2024 with hospitalization with discharge 06/02/2024. Gastro-esophageal reflux disease without esophagitis Encounter for prostate cancer screening PSA 2.0 on 05/10/2023. Stress fracture of femur medial femoral condyle right knee 2022 Arthritis of right knee Peripheral neuropathy Osteoarthritis of left knee Essential (primary) hypertension Male erectile dysfunction, unspecified Non-recurrent unilateral inguinal hernia without obstruction or gangrene Obstructive sleep apnea History of JEISON starting 1989 with split night sleep study 01/20/2023 with AHI of 8.4 with oxygen saturation to 86% with titration to 11 cm of water pressure with AirSense 11 CPAP with ResMed AirFit F20 fullface mask 01/20/2023. Raynaud's syndrome without gangrene Surgical History Surgical History S/P left unicompartmental knee replacement October 26, 2021 Status post arthroscopy of left knee (05/11/19) Osteochondral defect of condyle of femur History of toe surgery History of hernia repair Family History Family History Mother Diabetes mellitus Patient's mother is Family history of malignant neoplasm of brain Father Heart disease Patient's father is Family history of Parkinson's disease Hypertension Sibling Diabetes mellitus Asthma Other Family history of allergic disorder Family history of cardiovascular disease Social History Social History Social History: Patient lives with his . 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 He does admit to 3 beers and 3 cocktail weekly. Code status: Full code Surrogate decision maker: 2 grown children Smoking packs per day: 2 Smoking cigarettes per day: 40.0 Years smoked: 15 Smoking pack-years: 30.00 Smoking status: Former smoker Tobacco type: cigarettes Smoking end date: 05/02/88 Alcohol intake: current Drinks per week: 20 Alcohol use details: BEER/COCKTAILS Substance use: former Substance use type: marijuana Last use: Do You Feel Safe in your Home?: Yes Lack of Transportation: No Lack of Food: Never True Current Housing: I Have Housing Concerned About Future Housing: No Difficulty Paying Gas/Electric Bills: No Difficulty Paying for Meds: No Currently Unemployed: No Education: Trade/Vocational Certificate Difficulty w/ Childcare or Family Care: No Living arrangements: with family Occupation/Education: retired Gender identity (if verbalized by the patient): Male Sexual Orientation (if Verbalized by the Patient): Straight or Heterosexual Spiritual care concerns: Yes Agree to blood products: Yes Meds Home Medications and Allergies Home Medications ?Medication ?Instructions ?Recorded ?Confirmed ?Type [id number] 250 mg-dha 90 1 cap PO DAILY 10/27/22 07/04/24 History mg-epa 160 oe-coie-gqsy-zeax capsule (Ocuvite Adult 50 Plus) CPAP #1 ea 02/11/23 07/04/24 Rx tadalafil 20 mg tablet (Cialis) 20 mg PO DAILY PRN sexual activity 08/18/23 07/04/24 Rx #30 tabs albuterol sulfate 90 mcg/actuation 1 - 2 puff inhalation Q4-6H PRN 03/06/24 07/04/24 Rx aerosol inhaler shortness of breath or wheezing #8.5 grams cetirizine 10 mg tablet (Zyrtec) 10 mg PO BID allergy symptoms 03/20/24 07/04/24 History guaifenesin 600 mg tablet, 1,200 mg (2 x 600 mg) PO Q12HR #60 04/06/24 07/04/24 Rx extended release 12 hr (Mucus tabs Relief ER) sodium chloride 0.65 % nasal spray 1 spray intranasal Q6HR PRN 04/06/24 07/04/24 Rx aerosol (Saline Mist) Congestion #45 mL peak flow meter #1 ea 04/16/24 07/04/24 Rx albuterol sulfate 2.5 mg/3 mL 2.5 mg (3 mL) inhalation Q6H PRN 04/23/24 07/04/24 Rx (0.083 %) solution for nebulization shortness of breath or wheezing 1 month #180 mL amlodipine 10 mg tablet 10 mg PO . Q.a.m. #90 tabs 05/03/24 07/04/24 Rx atorvastatin 40 mg tablet 40 mg PO DAILY #90 tabs 05/03/24 07/04/24 Rx famotidine 40 mg tablet 40 mg PO DAILY #90 tabs 05/03/24 07/04/24 Rx hydrochlorothiazide 12.5 mg capsule 12.5 mg PO QAM #90 caps 05/03/24 07/04/24 Rx irbesartan 150 mg tablet 150 mg PO DAILY #90 tabs 05/03/24 07/04/24 Rx metoprolol tartrate 25 mg tablet 12.5 mg (1/2 x 25 mg) PO BID #90 05/03/24 07/04/24 Rx tabs montelukast 10 mg tablet 10 mg PO QHS #90 tabs 05/03/24 07/04/24 Rx (Singulair) omeprazole 20 mg capsule,delayed 20 mg PO DAILY #90 caps 05/03/24 07/04/24 Rx release Trelegy Ellipta 100 mcg-62.5 1 inh inhalation Q24H 1 month #60 05/25/24 07/04/24 Rx mcg-25 mcg powder for inhalation ea (quxyuvqmawr-gxzkqtqfm-itymumay) fluticasone fur. 100 mcg-umeclid 1 inh inhalation DAILY #60 ea 05/25/24 07/04/24 Rx 62.5 mcg-vilant 25 mcg inhalat.powder (Trelegy Ellipta) Allergies Allergy/AdvReac Type Severity Reaction Status Date / Time aspirin Allergy Intermediate EYES Verified 07/25/24 09:36 SWELLING ephedrine Allergy Intermediate Hives Verified 07/25/24 09:36 pseudoephedrine Allergy Intermediate Hives Verified 07/25/24 09:36 Vital Signs Vital Signs - 24 hr 07/25/24 09:51 07/25/24 09:55 07/25/24 10:16 Temperature 97.7 F 97.8 F Pulse Rate 92 93 Respiratory Rate 32 H 29 H Blood Pressure 141/77 H 146/92 H Pulse Oximetry 88 L 95 92 Oxygen Delivery Room Air Nasal Cannula Oxygen Flow Rate 2 Fraction of Inspired Oxygen 07/25/24 10:25 07/25/24 10:31 07/25/24 10:46 Temperature 97.8 F Pulse Rate 91 90 92 Respiratory Rate 24 H 23 H 26 H Blood Pressure 129/84 132/80 Pulse Oximetry 98 99 Oxygen Delivery Oxygen Flow Rate Fraction of Inspired Oxygen 07/25/24 11:16 07/25/24 11:49 07/25/24 12:08 Temperature Pulse Rate 105 H 117 H 114 H Respiratory Rate 28 H 32 H 27 H Blood Pressure 148/78 H 145/72 H Pulse Oximetry 100 98 Oxygen Delivery Oxygen Flow Rate Fraction of Inspired Oxygen 07/25/24 12:18 07/25/24 12:29 07/25/24 13:05 Temperature Pulse Rate 115 H 115 H 120 H Respiratory Rate 25 H 24 H 32 H Blood Pressure 115/67 Pulse Oximetry 99 100 Oxygen Delivery BiPAP Oxygen Flow Rate Fraction of Inspired Oxygen 07/25/24 13:32 07/25/24 14:02 07/25/24 14:13 Temperature Pulse Rate 121 H 125 H Respiratory Rate 32 H 45 H Blood Pressure Pulse Oximetry 94 96 Oxygen Delivery Nasal Cannula Oxygen Flow Rate 2 Fraction of Inspired Oxygen 07/25/24 14:24 07/25/24 14:38 07/25/24 14:41 Temperature Pulse Rate 125 H 124 H Respiratory Rate 31 H 24 H Blood Pressure 150/70 H Pulse Oximetry 99 98 Oxygen Delivery BiPAP BiPAP Oxygen Flow Rate Fraction of Inspired Oxygen 07/25/24 14:48 07/25/24 15:15 07/25/24 15:33 Temperature Pulse Rate 123 H 116 H 118 H Respiratory Rate 35 H 38 H 32 H Blood Pressure 138/84 141/88 H 129/87 Pulse Oximetry 98 100 96 Oxygen Delivery Oxygen Flow Rate Fraction of Inspired Oxygen 07/25/24 16:20 07/25/24 16:24 07/25/24 16:35 Temperature Pulse Rate 125 H 120 H 136 H Respiratory Rate 33 H 25 H 27 H Blood Pressure 160/68 H 160/88 H 119/80 Pulse Oximetry 99 99 98 Oxygen Delivery Oxygen Flow Rate Fraction of Inspired Oxygen 07/25/24 16:47 07/25/24 16:50 07/25/24 17:10 Temperature Pulse Rate 130 H 130 H 137 H Respiratory Rate 14 14 Blood Pressure Pulse Oximetry 99 Oxygen Delivery Mechanical Ventilation Oxygen Flow Rate Fraction of Inspired Oxygen 100 07/25/24 17:17 07/25/24 17:40 07/25/24 17:57 Temperature Pulse Rate 137 H 128 H 138 H Respiratory Rate 14 16 Blood Pressure 209/94 H 168/72 H Pulse Oximetry 98 97 100 Oxygen Delivery Mechanical Ventilation Oxygen Flow Rate Fraction of Inspired Oxygen 40 07/25/24 18:17 07/25/24 18:18 07/25/24 18:31 Temperature Pulse Rate 143 H 143 H 145 H Respiratory Rate 24 H 24 H 20 Blood Pressure Pulse Oximetry Oxygen Delivery Oxygen Flow Rate Fraction of Inspired Oxygen 07/25/24 18:31 07/25/24 18:37 Temperature Pulse Rate 145 H 128 H Respiratory Rate 20 21 H Blood Pressure 157/75 H Pulse Oximetry 95 Oxygen Delivery Oxygen Flow Rate Fraction of Inspired Oxygen Exam Const: General: in distress and uncomfortable Other: , male, ill-appearing, significant respiratory distress HENMT: Face/Nose/Sinus: Normal nares present Mouth: Yes dry mucous membranes Eyes: General: appearance normal, both eyes and all related structures Sclera: sclerae normal Pupils: Equal, round and reactive pupils present EOM: EOMs intact bilaterally Resp: Other: BiPAP in place, tolerating okay. Intermittent coughing requiring removal of BiPAP mask. Significant tachypnea with subcostal retractions. Minimal air movement in all lung koch with faint consistent expiratory wheeze. No crackles or rhonchi. Cardio: Rate: tachycardic Rhythm: regular rhythm Other: S1-S2 present without murmur, rub, ectopy GI: Other: Abdomen soft, nondistended, nontender. Normoactive bowel sounds in all quadrants. Skin: General skin exam: normal color and no rashes or lesions noted Wounds: no wounds Neuro: Speech: normal speech Motor exam (neuro): 5/5 motor strength present throughout Sensory Exam: normal sensation Other: A&O x4. However somnolent/fatigued. Extrem: General: normal to inspection Psych: Mental Status: mental status grossly normal Affect: normal affect Other: Good insight and judgment, pleasant H&P: Results Labs Labs: Short CBC 07/25/24 Range/Units 09:49 WBC 13.6 H (4.5-10.0) K/mm3 Hgb 17.2 (14.0-18.0) g/dL Hct 48.4 (42.0-52.0) % Plt Count 310 (150-375) k/mm3 BMP 07/25/24 09:49 Sodium 138 Potassium 3.7 Chloride 101 Carbon Dioxide 23 BUN 18 D Creatinine 1.28 Glucose 118 H Calcium 9.9 Cardiac Enzymes 07/25/24 07/25/24 Range/Units 09:49 14:32 Troponin I < 0.012 < 0.012 (0.000-0.034) ng/mL Liver Function 07/25/24 Range/Units 09:49 Total Bilirubin 1.7 H (0.2-1.3) mg/dL AST 34 (17-59) U/L ALT 36 (6-50) U/L Alkaline Phosphatase 173 H (38-126) U/L Albumin 4.9 (3.5-5.1) g/dL Assessment and Plan Assessment and plan (1) Respiratory failure requiring intubation: Code(s): J96.90 - Respiratory failure, unspecified, unspecified whether with hypoxia or hypercapnia Status: Acute Assessment and Plan: The patient was given multiple breathing treatments and 2G Mag in the emergency department and started on BiPAP. He was briefly trialed back on nasal cannula, however he did not tolerate this. This was evidenced by worsening tachypnea, subcostal retractions, and worsening somnolence/fatigue. The patient was placed back on BiPAP but had minimal improvement. Long discussion with the patient and his at the bedside in the ED with the ED doctor present. After shared decision making, the patient was amenable to moving forward with the patient as he continued to decompensate becoming more fatigued stating he was worn out. Sedation with midazolam and fentanyl. - viral PCR negative - CXR: No acute cardiopulmonary disease - chest CT: 1. Minimal bilateral basal atelectasis with minimal effusion. 2. Endotracheal tube with the tip at the jose. Retraction by 2 to 3 cm is advised. 3. Left kidney stone. - initial ABG showed normal pH, CO2 30.6, O2 60.7, HC03 20.4, O2 saturation 94.6% on 2 L NC. Repeat ABG showed patient to be acidotic with a pH is 7.218 and HC03 21.5 on mechanical ventilation. Bicarb given. - no anemia or significant electrolyte derangements - D-dimer negative - admit to ICU with hereditary cancer program coordinator consult in for close hemodynamic monitoring and ventilator management - pulmonology consulted Suspect acute hypoxic respiratory failure secondary to COPD verses allergic asthma, pulmonary in favor of allergic asthma at most recent pulmonary visit on 07/04/2024. (2) Allergic asthma: Qualifiers: Asthma severity: severe Asthma complication type: with acute exacerbation Asthma persistence: persistent Qualified Code(s): J45.51 - Severe persistent asthma with (acute) exacerbation Code(s): J45.909 - Unspecified asthma, uncomplicated Status: Acute Assessment and Plan: - reviewed pulmonary notes from 07/04/2024, pulmonology in favor of allergic asthma versus COPD. Did not recommend ipratropium due to the patient developing anticholinergic affects including I discomfort with normal pressures and inability to empty bladder which is felt to be secondary to the ipratropium. Will continue with Xopenex nebs trudy. - start Solu-Medrol 80 mg q.6 x48 hours (3) Hypertension: Qualifiers: Hypertension type: primary hypertension Qualified Code(s): I10 - Essential (primary) hypertension Code(s): I10 - Essential (primary) hypertension Status: Chronic Assessment and Plan: - chronic, currently 141/77 - hold home p.o. medications, currently intubated. Hydralazine p.r.n. for BP greater than 180/90. - monitor Plan Diet: NPO, currently intubated and hypoglycemia protocol in place. GI Prophylaxis: Not currently indicated DVT Prophylaxis: Lovenox SQ Lines: Peripheral Code Status: Full code Quality VTE Prophylaxis VTE prophylaxis: pharmacologic ordered Critical Care Time: I personally spent 60 minutes of direct patient care includ ing (but not limited to) the physical examination, decision-making, bedside evaluation, review of medical records, review of labs and imaging, discussion with nursing staff and other providers for collaborative, critical care management of this patient. Hospitalist [facility] Advance Care Plan I have confirmed that the patient's Advanced Care Plan is present, code status is documented, or surrogate decision maker is listed in patient medical record.: Yes Medication Reconciliation I have utilized all available resources to obtain, update and review the patients current medications (includes all prescriptions, OTC, herbals, cannabis, and nutritional supplements).: Yes
[2024-07-25] MEDS: SODIUM CHLORIDE 0.9% IV 1,000 ML 999 ML IV CONT (19:12)
--- NOTE | 2024-07-25 19:12 | PC.NURSE ---
TRANSPORT AIDE May at bedside assessing pt. and updating pt. . All questions answered at this time.
--- NOTE | 2024-07-25 19:50 | PC.NURSE ---
Pt. overbreathing the vent. Pt. remains sedated. VSS. RT at bedside and Dr. Hayes notified. Fentanyl titrated Per Dr. Hayes. No additional interventions at this time. at bedside. Questions and concerns addressed.
--- NOTE | 2024-07-25 21:12 | ADMGEN ---
This patient, Jeferson Comer, was admitted to Virtual [facility] ICU-1. Patient/family oriented to hospital policies and general routines including ID bracelet, bed and alarms, visiting hours, pain management, procedures, bathroom and other care routines, personal items, smoking policy, room service/diet, and visiting hours. Information on how to activate the Rapid Response Team has been discussed. Patient/Family are encouraged to report perceived risks to care and to ask questions if they do not understand what they are told or what they should do.
[2024-07-25] MEDS: LEVALBUTEROL NEB 1.25 MG/3 ML INHALATION (22:40)
[2024-07-25 23:06] LABS: MRSA (PCR) NOT DETECTED (NOT DETECTE)
[2024-07-25 23:23] LABS: Triglycerides 157 mg/dL (<150)
[2024-07-25] MEDS: PROPOFOL IV EMULSION 100 ML 2.49 MG IV CONT (23:24)
[2024-07-25] MEDS: methylPREDNISolone SOD SUCC 125 MG VIAL 80 MG IV PUSH (23:26)
[2024-07-25] MEDS: LACTATED RINGERS 1,000 ML 999 ML IV CONT (23:28)
[2024-07-25 23:40] LABS: Procalcitonin 0.2 ng/mL
[2024-07-26] VITALS (45 sets, daily range): BP systolic 90–144; BP diastolic 45–70; PULSE 80–116; RESP 18–105; TEMP 36.4–36.8; O2SAT 34–98; BMI 25.4
[2024-07-26 00:26] LABS: Glucose Point of Care 196 mg/dl (65-105)
[2024-07-26] MEDS: LEVALBUTEROL NEB 1.25 MG/3 ML INHALATION ×3 (01:46→15:12)
[2024-07-26 04:20] LABS: Basophils Percent Auto 0.2 % (0.2-1.2); Eosinophils Percent Auto 0.1 % (0-4.4); Hematocrit 40.3 % (42.0-52.0); Hemoglobin 14.2 g/dL (14.0-18.0); Immature Granulocyte Percent A 0.6 % (0-0.5); Lymphocytes Absolute Auto 1.09 K/mm3 (0.9-3.2); Lymphocytes Percent Auto 6.7 % (18.3-44.2); Mean Corpuscular HGB Conc 35.2 g/dl (32-36); Mean Corpuscular Hemoglobin 31.9 pg (26-34); Mean Corpuscular Volume 90.6 fl (80-100); Mean Platelet Volume 9.3 fl (7.4-10.4); Monocytes Absolute Auto 0.4 K/mm3 (0.1-0.6); Monocytes Percent Auto 2.6 % (2.6-8.5); Neutrophils Absolute Auto 14.7 K/mm3 (1.3-6.7); Neutrophils Percent Auto 89.8 % (45.5-73.1); Platelet Count Result 277 k/mm3 (150-375); Red Blood Count 4.45 M/mm3 (4.6-6.20); Red Cell Distribution Width 13.6 % (11.5-14.5); White Blood Count 16.4 K/mm3 (4.5-10.0)
[2024-07-26] MEDS: MIDAZOLAM HCL (*CRX) 2 MG/2 ML VIAL 4 MG IV PUSH (04:31)
[2024-07-26 04:36] LABS: Alanine Aminotransferase 33 U/L (6-50); Albumin Level 4.1 g/dL (3.5-5.1); Alkaline Phosphatase 139 U/L (38-126); Anion Gap 13 mmol/L (4-12); Aspartate Amino Transferase 29 U/L (17-59); Blood Urea Nitrogen 33 mg/dL (9-20); Calcium 8.7 mg/dL (8.4-10.2); Carbon Dioxide 18 mmol/L (22-30); Chloride 105 mmol/L (98-107); Estimated CRCL calculation 32 ml/min; Estimated Glomerular Filt Rate 30; Glucose 201 mg/dL (65-110); Magnesium 2.5 mg/dL (1.6-2.3); Phosphorus 3.6 mg/dL (2.5-4.5); Potassium 3.9 mmol/L (3.4-5.0); Sodium 136 mmol/L (137-145)
[2024-07-26 04:39] LABS: Alveolar/Arterial O2 Gradient 146.8 mmHg; Base Excess ABG -4.8 mEq/l (+/-2.0); Carboxyhemoglobin 0.4 % THb (0-2.0); Fractional Inspired Oxygen 40 %; HCO3 ABG 19.2 mEq/l (22.0-26.0); Methemoglobin ABG 0.2 %THb (0-1.5); Oxygen Content ABG 20.1 %vol (16.0-22.0); Oxygen Saturation ABG 97.5 % (95.0-100.0); PCO2 ABG 33.1 mmHg (35.0-45.0); PO2 ABG 100.3 mmHg (80.0-100.0); PO2 FiO2 Ratio Arterial Blood 2.51 %; Reduced Hemoglobin 2.4 %THb (0-5.0); Total Hemoglobin 14.7 g/dL (12.0-18.0); pH ABG 7.382 (7.350-7.450)
[2024-07-26 04:41] LABS: Arterial Blood Gas Vent Mode CMV; Arterial Blood Gas Ventilator rate 14 /MIN; Device VENTILATOR; Modified Allen's Test Pass; Site Drawn LEFT RADIAL
[2024-07-26 04:42] LABS: Arterial Blood Gas PEEP 5 cmH2O; Arterial Blood Gas Tidal Volume 450 ml
[2024-07-26] MEDS: PROPOFOL IV EMULSION 100 ML 14.94 MG IV CONT ×4 (05:15→23:42)
[2024-07-26] MEDS: methylPREDNISolone SOD SUCC 125 MG VIAL 80 MG IV PUSH ×2 (05:19→11:29)
[2024-07-26] MEDS: ROCURONIUM BROMIDE 50 MG/5 ML VIAL IV PUSH (06:52)
[2024-07-26] MEDS: MIDAZOLAM 100MG/NS 100ML(*CRX) 100 MG/100 ML BAG 10 MG IV CONT (08:50)
[2024-07-26] MEDS: ENOXAPARIN 40 MG/0.4 ML SYRINGE SUB-Q (08:51)
[2024-07-26] MEDS: MINERAL OIL/WHITE PETROLATUM OINTMENT 1 APPLIC EACH EYE ×2 (08:52→21:50)
[2024-07-26] MEDS: CISATRACURIUM BESYLATE 20 MG/10 ML VIAL 12.5 MG IV PUSH (09:32)
--- NOTE | 2024-07-26 09:39 | WPDCNINT ---
Assessment and Plan Assessment and plan (1) Acute respiratory failure with hypoxia and hypercapnia: Code(s): J96.01 - Acute respiratory failure with hypoxia; J96.02 - Acute respiratory failure with hypercapnia Status: Acute Assessment and Plan: Acute hypoxic and hypercarbic respiratory failure which appears to be secondary to status asthmaticus. Patient has history of allergic asthma and his presentation is consistent. Patient may also have mild underlying COPD considering his long history of smoking but has not been officially diagnosed. CT scan did not show any infiltrates and procalcitonin level was low suggesting against any pneumonia Currently intubated and on mechanical ventilation. Patient was heavily sedated. Patient was still a synchronous with ventilator and was given rocuronium ABG and chest x-ray reviewed Ventilator settings reviewed. Peak pressures have improved after sedation and neuromuscular elmer Continue fentanyl Versed and propofol and try to wean down sedatives. Will start Nimbex infusion for next 24 hours Continue Solu-Medrol, scheduled bronchodilators Add Claritin Hold antibiotics Consult pulmonology (2) Hypertension: Qualifiers: Hypertension type: primary hypertension Qualified Code(s): I10 - Essential (primary) hypertension Code(s): I10 - Essential (primary) hypertension Status: Chronic Assessment and Plan: Patient blood pressure is now soft secondary to sedation. Hold antihypertensive medications (3) Allergic asthma: Qualifiers: Asthma severity: severe Asthma persistence: persistent Asthma complication type: with acute exacerbation Qualified Code(s): J45.51 - Severe persistent asthma with (acute) exacerbation Code(s): J45.909 - Unspecified asthma, uncomplicated Status: Acute Assessment and Plan: See above (4) COPD (chronic obstructive pulmonary disease): Qualifiers: COPD type: unspecified COPD Qualified Code(s): J44.9 - Chronic obstructive pulmonary disease, unspecified Code(s): J44.9 - Chronic obstructive pulmonary disease, unspecified Status: Acute Assessment and Plan: See above (5) Obstructive sleep apnea: Code(s): G47.33 - Obstructive sleep apnea (adult) (pediatric) Status: Acute Assessment and Plan: Currently intubated and on mechanical ventilation (6) Status asthmaticus: Code(s): J45.902 - Unspecified asthma with status asthmaticus Status: Acute Assessment and Plan: See above Plan DVT prophylaxis -Lovenox Stress ulcer prophylaxis -Protonix Nutrition -start Tube Feeds Code Status - Full Code I spoke to patient's in detail at bedside and updated her with patient's current status and current treatment plan. I answered all her questions. Total Critical Care Time - 45 minutes Due to a high probability of clinically significant, life threatening deterioration, the patient required my highest level of preparedness to intervene emergently and I personally spent this critical care time directly and personally managing the patient. This critical care time included obtaining a history; examining the patient; pulse oximetry; ordering and review of studies; arranging urgent treatment with development of a management plan; evaluation of patient's response to treatment; frequent reassessment; and discussions with other providers. It was exclusive of separately billable procedures and treating other patients and teaching time. Please see Assessment and Plan section and the rest of the note for further information on patient assessment and treatment Center Mgr Consult Note Consult date: 07/26/24 Reason for consult: Acute respiratory failure HPI: Jeferson Comer is a 68 year old male with past medical history of allergic asthma,, COPD that has not been confirmed by PFTs, history of smoking and marijuana use, allergies, GERD, hypertension, obstructive sleep apnea presented to ER yesterday with chief complaint of shortness of breath. Patient is currently intubated and history was obtained from patient's and chart review states the patient was suspected to have COPD last year but his PFTs test were negative as he was told. He also sees waxing machine operator helper and was diagnosed with allergies and is on daily and allergy medication. She states that he was seen by computer forensic examiner and was diagnosed with asthma. He does daily albuterol treatment in the morning and also uses trelegy. Patient was feeling well on Tuesday and on Tuesday evening he helped his family member removed some rocks and was exposed to dust on Tuesday patient started having coughing with productive sputum. He he did multiple bronchodilator treatments on Tuesday. But his cough and shortness of breath kept on worsening. She states that he was visibly in respiratory distress and also was wheezing. She denies any fever. She states that the sputum was yellowish to brownish in color. She denies any history of diarrhea constipation abdominal pain. All other systems were reviewed and were negative . In ER patient was found to be having WBC of 3.6, negative D-dimer, normal coags, no significant electrolyte derangements, creatinine 1.28 and and GFR 56, glucose 118, troponin negative x2, BNP 102, viral PCR negative. CXR showed no acute cardiopulmonary disease. Chest CT showed minimal bilateral basal atelectasis with minimal effusion, ET tube at the tip of the jose, left kidney stone. Patient was was in significant respiratory distress. He was tried on BiPAP but failed and hence he was intubated in the ER. Patient was admitted to ICU for further evaluation management. Review of Systems Review of Systems: ROS unobtainable: Yes unobtainable due to endotracheal tube, unobtainable due to medical condition and unobtainable due to mental status [facility] Past Medical History Medical History Allergic asthma Tick bite Fatigue Acute hypoxic respiratory failure Inflamed acrochordon (~03/2024) red inflamed tag right axilla 0.2 cm excised 03/20/2024 Elevated fasting glucose (03/06/24) fasting glucose 106 with GFR 72 on 03/06/2024. Chronic cough Personal history of tobacco use 2 packs per day for 23 years with patient stopping 1988. Irritable bowel syndrome with diarrhea Mixed hyperlipidemia Cholesterol 145, triglycerides 99, HDL 50, LDL 75 on 05/10/2023. Cholesterol 162, triglycerides 86, HDL 41, LDL 105 on 03/06/2024. Seasonal allergic rhinitis Urticaria Overweight (BMI 25.0-29.9) Acute bronchitis (~05/29/24) Chest x-ray normal on 08/18/2023. acute bronchitis with parainfluenza infection 05/29/2024 with hospitalization with discharge 06/02/2024. Gastro-esophageal reflux disease without esophagitis Encounter for prostate cancer screening PSA 2.0 on 05/10/2023. Stress fracture of femur medial femoral condyle right knee 2022 Arthritis of right knee Peripheral neuropathy Osteoarthritis of left knee Essential (primary) hypertension Male erectile dysfunction, unspecified Non-recurrent unilateral inguinal hernia without obstruction or gangrene Obstructive sleep apnea History of JEISON starting 1989 with split night sleep study 01/20/2023 with AHI of 8.4 with oxygen saturation to 86% with titration to 11 cm of water pressure with AirSense 11 CPAP with ResMed AirFit F20 fullface mask 01/20/2023. Raynaud's syndrome without gangrene Surgical History Surgical History S/P left unicompartmental knee replacement October 26, 2021 Status post arthroscopy of left knee (05/11/19) Osteochondral defect of condyle of femur History of toe surgery History of hernia repair Family History Family History Mother Diabetes mellitus Patient's mother is Family history of malignant neoplasm of brain Father Heart disease Patient's father is Family history of Parkinson's disease Hypertension Sibling Diabetes mellitus Asthma Other Family history of allergic disorder Family history of cardiovascular disease Social History Social History Social History: Patient lives with his . 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 He does admit to 3 beers and 3 cocktail weekly. Code status: Full code Surrogate decision maker: 2 grown children Smoking packs per day: 2 Smoking cigarettes per day: 40.0 Years smoked: 15 Smoking pack-years: 30.00 Smoking status: Former smoker Tobacco type: cigarettes Smoking end date: 05/02/88 Alcohol intake: current Drinks per week: 60 Alcohol use details: BEER/COCKTAILS Substance use: former Substance use type: marijuana Last use: 01/2024 Do You Feel Safe in your Home?: Yes Lack of Transportation: No Lack of Food: Never True Current Housing: I Have Housing Concerned About Future Housing: No Difficulty Paying Gas/Electric Bills: No Difficulty Paying for Meds: No Currently Unemployed: No Education: Trade/Vocational Certificate Difficulty w/ Childcare or Family Care: No Living arrangements: with family Occupation/Education: retired Gender identity (if verbalized by the patient): Male Sexual Orientation (if Verbalized by the Patient): Straight or Heterosexual Spiritual care concerns: No Agree to blood products: Yes Meds Home Medications and Allergies Home Medications ?Medication ?Instructions ?Recorded ?Confirmed ?Type jfrtlujx-hjr-uphpf7 250 mg-dha 90 1 cap PO DAILY 10/27/22 07/25/24 History mg-epa 160 gm-yphn-fpkc-zeax capsule (Ocuvite Adult 50 Plus) CPAP #1 ea 02/11/23 07/25/24 Rx tadalafil 20 mg tablet (Cialis) 20 mg PO DAILY PRN sexual activity 08/18/23 07/25/24 Rx #30 tabs albuterol sulfate 90 mcg/actuation 1 - 2 puff inhalation Q4-6H PRN 03/06/24 07/25/24 Rx aerosol inhaler shortness of breath or wheezing #8.5 grams cetirizine 10 mg tablet (Zyrtec) 10 mg PO BID allergy symptoms 03/20/24 07/25/24 History guaifenesin 600 mg tablet, 1,200 mg (2 x 600 mg) PO Q12HR #60 04/06/24 07/25/24 Rx extended release 12 hr (Mucus tabs Relief ER) sodium chloride 0.65 % nasal spray 1 spray intranasal Q6HR PRN 04/06/24 07/25/24 Rx aerosol (Saline Mist) Congestion #45 mL peak flow meter #1 ea 04/16/24 07/25/24 Rx albuterol sulfate 2.5 mg/3 mL 2.5 mg (3 mL) inhalation Q6H PRN 04/23/24 07/25/24 Rx (0.083 %) solution for nebulization shortness of breath or wheezing 1 month #180 mL amlodipine 10 mg tablet 10 mg PO . Q.a.m. #90 tabs 05/03/24 07/25/24 Rx atorvastatin 40 mg tablet 40 mg PO DAILY #90 tabs 05/03/24 07/25/24 Rx famotidine 40 mg tablet 40 mg PO DAILY #90 tabs 05/03/24 07/25/24 Rx hydrochlorothiazide 12.5 mg capsule 12.5 mg PO QAM #90 caps 05/03/24 07/25/24 Rx irbesartan 150 mg tablet 150 mg PO DAILY #90 tabs 05/03/24 07/25/24 Rx metoprolol tartrate 25 mg tablet 12.5 mg (1/2 x 25 mg) PO BID #90 05/03/24 07/25/24 Rx tabs montelukast 10 mg tablet 10 mg PO QHS #90 tabs 05/03/24 07/25/24 Rx (Singulair) omeprazole 20 mg capsule,delayed 20 mg PO DAILY #90 caps 05/03/24 07/25/24 Rx release Trelegy Ellipta 100 mcg-62.5 1 inh inhalation Q24H 1 month #60 05/25/24 07/25/24 Rx mcg-25 mcg powder for inhalation ea (uhqyamgvinv-yucegdhnw-kcedqclh) fluticasone fur. 100 mcg-umeclid 1 inh inhalation DAILY #60 ea 05/25/24 07/25/24 Rx 62.5 mcg-vilant 25 mcg inhalat.powder (Trelegy Ellipta) Allergies Allergy/AdvReac Type Severity Reaction Status Date / Time aspirin Allergy Intermediate EYES Verified 07/25/24 09:36 SWELLING ephedrine Allergy Intermediate Hives Verified 07/25/24 09:36 pseudoephedrine Allergy Intermediate Hives Verified 07/25/24 09:36 Vital Signs Vital Signs - 24 hr 07/25/24 09:51 07/25/24 09:55 07/25/24 10:16 Temperature 36.5 C 36.6 C Pulse Rate 92 93 Respiratory Rate 32 H 29 H Blood Pressure 141/77 H 146/92 H Pulse Oximetry 88 L 95 92 Oxygen Delivery Room Air Nasal Cannula Oxygen Flow Rate 2 Fraction of Inspired Oxygen 07/25/24 10:25 07/25/24 10:31 07/25/24 10:46 Temperature 36.6 C Pulse Rate 91 90 92 Respiratory Rate 24 H 23 H 26 H Blood Pressure 129/84 132/80 Pulse Oximetry 98 99 Oxygen Delivery Oxygen Flow Rate Fraction of Inspired Oxygen 07/25/24 11:16 07/25/24 11:49 07/25/24 12:08 Temperature Pulse Rate 105 H 117 H 114 H Respiratory Rate 28 H 32 H 27 H Blood Pressure 148/78 H 145/72 H Pulse Oximetry 100 98 Oxygen Delivery Oxygen Flow Rate Fraction of Inspired Oxygen 07/25/24 12:18 07/25/24 12:29 07/25/24 13:05 Temperature Pulse Rate 115 H 115 H 120 H Respiratory Rate 25 H 24 H 32 H Blood Pressure 115/67 Pulse Oximetry 99 100 Oxygen Delivery BiPAP Oxygen Flow Rate Fraction of Inspired Oxygen 07/25/24 13:32 07/25/24 14:02 07/25/24 14:13 Temperature Pulse Rate 121 H 125 H Respiratory Rate 32 H 45 H Blood Pressure Pulse Oximetry 94 96 Oxygen Delivery Nasal Cannula Oxygen Flow Rate 2 Fraction of Inspired Oxygen 07/25/24 14:24 07/25/24 14:38 07/25/24 14:41 Temperature Pulse Rate 125 H 124 H Respiratory Rate 31 H 24 H Blood Pressure 150/70 H Pulse Oximetry 99 98 Oxygen Delivery BiPAP BiPAP Oxygen Flow Rate Fraction of Inspired Oxygen 07/25/24 14:48 07/25/24 15:15 07/25/24 15:33 Temperature Pulse Rate 123 H 116 H 118 H Respiratory Rate 35 H 38 H 32 H Blood Pressure 138/84 141/88 H 129/87 Pulse Oximetry 98 100 96 Oxygen Delivery Oxygen Flow Rate Fraction of Inspired Oxygen 07/25/24 16:20 07/25/24 16:24 07/25/24 16:35 Temperature Pulse Rate 125 H 120 H 136 H Respiratory Rate 33 H 25 H 27 H Blood Pressure 160/68 H 160/88 H 119/80 Pulse Oximetry 99 99 98 Oxygen Delivery Oxygen Flow Rate Fraction of Inspired Oxygen 07/25/24 16:47 07/25/24 16:50 07/25/24 17:10 Temperature Pulse Rate 130 H 130 H 137 H Respiratory Rate 14 14 Blood Pressure Pulse Oximetry 99 Oxygen Delivery Mechanical Ventilation Oxygen Flow Rate Fraction of Inspired Oxygen 100 07/25/24 17:17 07/25/24 17:40 07/25/24 17:57 Temperature Pulse Rate 137 H 128 H 138 H Respiratory Rate 14 16 Blood Pressure 209/94 H 168/72 H Pulse Oximetry 98 97 100 Oxygen Delivery Mechanical Ventilation Oxygen Flow Rate Fraction of Inspired Oxygen 40 07/25/24 18:17 07/25/24 18:18 07/25/24 18:31 Temperature Pulse Rate 143 H 143 H 145 H Respiratory Rate 24 H 24 H 20 Blood Pressure Pulse Oximetry Oxygen Delivery Oxygen Flow Rate Fraction of Inspired Oxygen 07/25/24 18:31 07/25/24 18:37 07/25/24 19:10 Temperature Pulse Rate 145 H 128 H 125 H Respiratory Rate 20 21 H 24 H Blood Pressure 157/75 H 101/60 Pulse Oximetry 95 94 Oxygen Delivery Oxygen Flow Rate Fraction of Inspired Oxygen 07/25/24 19:16 07/25/24 19:32 07/25/24 19:53 Temperature Pulse Rate 124 H 120 H 122 H Respiratory Rate 24 H 24 H 29 H Blood Pressure 102/63 118/64 Pulse Oximetry 94 96 Oxygen Delivery Oxygen Flow Rate Fraction of Inspired Oxygen 07/25/24 19:57 07/25/24 20:10 07/25/24 20:30 Temperature Pulse Rate 122 H 120 H 122 H Respiratory Rate 28 H 20 Blood Pressure 128/69 131/66 Pulse Oximetry 96 99 96 Oxygen Delivery Mechanical Ventilation Oxygen Flow Rate Fraction of Inspired Oxygen 07/25/24 20:55 07/25/24 21:00 07/25/24 21:00 Temperature Pulse Rate 123 H 123 H 123 H Respiratory Rate 34 H 34 H Blood Pressure Pulse Oximetry 95 Oxygen Delivery Mechanical Ventilation Oxygen Flow Rate Fraction of Inspired Oxygen 07/25/24 21:30 07/25/24 21:30 07/25/24 21:32 Temperature 36.1 C L Pulse Rate 123 H Respiratory Rate 34 H Blood Pressure 123/95 H Pulse Oximetry 97 95 Oxygen Delivery Mechanical Ventilation Oxygen Flow Rate Fraction of Inspired Oxygen 40 40 07/25/24 21:50 07/25/24 22:00 07/25/24 22:00 Temperature Pulse Rate 117 H 117 H Respiratory Rate 24 H Blood Pressure 108/64 Pulse Oximetry 97 Oxygen Delivery Oxygen Flow Rate Fraction of Inspired Oxygen 40 07/25/24 22:30 07/25/24 22:40 07/25/24 22:40 Temperature Pulse Rate 116 H 119 H 119 H Respiratory Rate 24 H 23 H Blood Pressure Pulse Oximetry 98 Oxygen Delivery Mechanical Ventilation Oxygen Flow Rate Fraction of Inspired Oxygen 07/25/24 23:00 07/25/24 23:24 07/25/24 23:29 Temperature Pulse Rate 122 H 116 H 118 H Respiratory Rate 29 H 26 H 24 H Blood Pressure Pulse Oximetry Oxygen Delivery Oxygen Flow Rate Fraction of Inspired Oxygen 07/25/24 23:56 07/25/24 23:56 07/26/24 00:00 Temperature 36.8 C Pulse Rate 113 H Respiratory Rate 27 H Blood Pressure 128/69 Pulse Oximetry 96 96 Oxygen Delivery Mechanical Ventilation Oxygen Flow Rate Fraction of Inspired Oxygen 40 40 07/26/24 00:00 07/26/24 00:00 07/26/24 00:00 Temperature Pulse Rate 113 H 113 H 116 H Respiratory Rate 28 H 28 H 28 H Blood Pressure Pulse Oximetry Oxygen Delivery Oxygen Flow Rate Fraction of Inspired Oxygen 07/26/24 00:00 07/26/24 01:00 07/26/24 01:46 Temperature Pulse Rate 112 H 110 H 109 H Respiratory Rate 26 H Blood Pressure Pulse Oximetry 96 Oxygen Delivery Mechanical Ventilation Oxygen Flow Rate Fraction of Inspired Oxygen 07/26/24 01:46 07/26/24 02:00 07/26/24 02:00 Temperature Pulse Rate 109 H 109 H 109 H Respiratory Rate 28 H 26 H Blood Pressure 122/59 L Pulse Oximetry 96 Oxygen Delivery Oxygen Flow Rate Fraction of Inspired Oxygen 07/26/24 02:00 07/26/24 02:00 07/26/24 03:00 Temperature Pulse Rate 109 H 109 H 109 H Respiratory Rate 26 H 26 H 27 H Blood Pressure Pulse Oximetry Oxygen Delivery Oxygen Flow Rate Fraction of Inspired Oxygen 07/26/24 04:00 07/26/24 04:00 07/26/24 04:00 Temperature 36.8 C Pulse Rate 110 H Respiratory Rate 31 H Blood Pressure 144/65 H Pulse Oximetry 98 98 Oxygen Delivery Mechanical Ventilation Oxygen Flow Rate Fraction of Inspired Oxygen 40 40 07/26/24 04:00 07/26/24 04:00 07/26/24 04:00 Temperature Pulse Rate 110 H 110 H 104 H Respiratory Rate 31 H 31 H Blood Pressure Pulse Oximetry Oxygen Delivery Oxygen Flow Rate Fraction of Inspired Oxygen 07/26/24 04:14 07/26/24 04:25 07/26/24 04:50 Temperature Pulse Rate 106 H 110 H 107 H Respiratory Rate 33 H 33 H Blood Pressure Pulse Oximetry 96 Oxygen Delivery Mechanical Ventilation Oxygen Flow Rate Fraction of Inspired Oxygen 07/26/24 05:00 07/26/24 05:15 07/26/24 05:15 Temperature Pulse Rate 103 H 102 H 102 H Respiratory Rate 30 H 29 H 29 H Blood Pressure Pulse Oximetry Oxygen Delivery Oxygen Flow Rate Fraction of Inspired Oxygen 07/26/24 05:30 07/26/24 06:00 07/26/24 06:00 Temperature Pulse Rate 102 H 107 H 105 H Respiratory Rate 31 H 105 H 34 H Blood Pressure Pulse Oximetry Oxygen Delivery Oxygen Flow Rate Fraction of Inspired Oxygen 07/26/24 06:00 07/26/24 06:00 07/26/24 08:00 Temperature Pulse Rate 110 H 105 H 102 H Respiratory Rate 34 H 22 H Blood Pressure 125/65 Pulse Oximetry 34 L Oxygen Delivery Oxygen Flow Rate Fraction of Inspired Oxygen 07/26/24 08:00 07/26/24 08:00 07/26/24 08:00 Temperature 36.6 C Pulse Rate 102 H Respiratory Rate 22 H Blood Pressure 103/45 L Pulse Oximetry 96 96 Oxygen Delivery Mechanical Ventilation Oxygen Flow Rate Fraction of Inspired Oxygen 40 40 07/26/24 08:26 07/26/24 08:34 07/26/24 08:46 Temperature Pulse Rate 101 H 100 99 Respiratory Rate 20 26 H Blood Pressure Pulse Oximetry 96 Oxygen Delivery Mechanical Ventilation Oxygen Flow Rate Fraction of Inspired Oxygen 07/26/24 08:50 07/26/24 08:50 07/26/24 09:30 Temperature Pulse Rate 99 99 99 Respiratory Rate 24 H 24 H Blood Pressure Pulse Oximetry 96 Oxygen Delivery Mechanical Ventilation Oxygen Flow Rate Fraction of Inspired Oxygen Exam Narrative: General: Pt is sedated, intubated and on mechanical ventilation Lungs/Chest: Trachea central bilateral occasional wheezing, decreased overall air movement, Abdominal breathing, Cardiac: RRR. Normal S1 S2. No murmurs Circulation: Pedal pulses are intact and symmetrical. Abdomen: Decreased bowel sounds. Obese. Soft. NT. ND. Extremities: No clubbing, cyanosis or edema. Warm : Garcia in place Neurologic: Unable to assess due to sedation. Moves all 4 extremities to painful stimuli. PERRL Results Labs 07/26/24 04:14 07/26/24 04:14 Labs: Short CBC 07/25/24 07/26/24 Range/Units 09:49 04:14 WBC 13.6 H 16.4 H (4.5-10.0) K/mm3 Hgb 17.2 14.2 D (14.0-18.0) g/dL Hct 48.4 40.3 L (42.0-52.0) % Plt Count 310 277 (150-375) k/mm3 BMP 07/25/24 07/26/24 09:49 04:14 Sodium 138 136 L Potassium 3.7 3.9 Chloride 101 105 Carbon Dioxide 23 18 L BUN 18 D 33 H D Creatinine 1.28 2.18 H Glucose 118 H 201 H Calcium 9.9 8.7 Cardiac Enzymes 07/25/24 07/25/24 Range/Units 09:49 14:32 Troponin I < 0.012 < 0.012 (0.000-0.034) ng/mL Liver Function 07/25/24 07/26/24 Range/Units 09:49 04:14 Total Bilirubin 1.7 H 1.0 (0.2-1.3) mg/dL AST 34 29 (17-59) U/L ALT 36 33 (6-50) U/L Alkaline Phosphatase 173 H 139 H (38-126) U/L Albumin 4.9 4.1 (3.5-5.1) g/dL Quality VTE Prophylaxis VTE prophylaxis: pharmacologic ordered Hospitalist MIPS Advance Care Plan I have confirmed that the patient's Advanced Care Plan is present, code status is documented, or surrogate decision maker is listed in patient medical record.: Yes Medication Reconciliation I have utilized all available resources to obtain, update and review the patients current medications (includes all prescriptions, OTC, herbals, cannabis, and nutritional supplements).: Yes
[2024-07-26 09:56] LABS: Non-Invasive Expiratory Pressure 7 CMH2O; Non-Invasive Inspiratory Pressure 14 CMH2O; Non-Invasive Vent Rate 12 /MIN
[2024-07-26] MEDS: LACTATED RINGERS 1,000 ML 100 ML IV CONT ×2 (10:31→21:54)
[2024-07-26] MEDS: PANTOPRAZOLE SODIUM IV 40 MG VIAL IV PUSH (10:31)
[2024-07-26] MEDS: CISATRACURIUM BESYLATE 200 MG in SODIUM CHLORIDE 0.9% IV 80 ML 7.47 ML IV CONT (10:31)
[2024-07-26] MEDS: LACTATED RINGERS 1,000 ML 999 ML IV CONT (10:31)
[2024-07-26] MEDS: FENTANYL 2,500MCG/NS250ML(*CRX 2,500 MCG/250 ML BAG 12.5 MCG IV CONT (11:32)
--- NOTE | 2024-07-26 11:52 | PM.CNPUL ---
Assessment and Plan Assessment and plan (1) Status asthmaticus: Code(s): J45.902 - Unspecified asthma with status asthmaticus Status: Acute Assessment and Plan: This 68-year-old man, with a history of normal pulmonary function testing, has frequent coughing and wheezing, with three previous hospitalizations for obstructive airway disease over the last few months. He presented with a several-day history of progressively increasing shortness of breath and coughing. The patient?s clinical history of obstructive airway disease, combined with diagnostic studies showing eosinophilia and significant improvement with oral steroid regimens following each hospitalization, suggests uncontrolled eosinophilic asthma. The current presentation is typical for status asthmaticus, as the patient exhibited respiratory alkalosis, did not respond to bronchodilators administered in the ER, and progressed to metabolic and respiratory acidosis. Following intubation, the patient was fully sedated and paralyzed due to difficulties encountered by the mergers and acquisitions consultant in ventilating him. On the current ventilator settings, there is no evidence of wheezing in the anterior chest. A review of respiratory mechanics while the patient is passively ventilated showed a total respiratory resistance of 20 cm/L/sec, which is mildly elevated, and an expiratory time constant of 0.64 seconds, which is in the normal range. There is no auto PEEP. His chest CT shows mild atelectasis at the bases posteriorly and small pleural effusions, with no evidence of lower respiratory tract infection. Plan: I agree with the current regimen and mechanical ventilation for this patient with status asthmaticus. Since his respiratory resistance is not significantly increased and there is no wheezing on physical examination, I recommend continuing with a lower dose of Solu-Medrol at 60 mg every 8 hours. He will likely tolerate a weaning trial in the morning. I will continue to monitor the patient along with you. Regarding his long-term treatment, I discussed with the patient's the need for better control of his obstructive airway disease. I will provide more details on this plan once the patient is extubated and transferred to the regular medical [facility]. (2) Obstructive sleep apnea: Code(s): G47.33 - Obstructive sleep apnea (adult) (pediatric) Status: Acute (3) Personal history of tobacco use: Code(s): Z87.891 - Personal history of nicotine dependence Status: Acute History of Present Illness History of Present Illness Consult date: 07/26/24 Chief complaint: COPD exacerbation Narrative: This is a consultation for a patient with respiratory failure who is currently intubated and fully sedated on mechanical ventilation. This report is based on information obtained from the patient's electronic chart and from the patient's , who was at the bedside. Reportedly, the patient was diagnosed with asthma, and this is the fourth hospitalization for shortness of breath and cough. According to his , the patient's respiratory problems began last August following a COVID-19 infection. In December of last year, while camping in [place], the patient developed a cough with progressively worsening shortness of breath. According to his , he was treated for obstructive airway disease. Since then, the patient has been hospitalized with similar symptoms on two more occasions: once in March at [facility] and again at [facility], where he stayed for 4 to 5 days. His diagnosis was COPD versus asthma, and the patient had been on a Trelegy inhaler and short-acting bronchodilators. After each hospitalization, he received an oral steroid regimen, which led to significant improvement for weeks, but his cough would typically return weeks after stopping the steroids. This hospitalization was prompted by a cough that became progressively worse and shortness of breath since last Tuesday. He had no other respiratory symptoms such as fever, chest pain, orthopnea, or lower extremity edema. Upon evaluation in the emergency room, initial arterial blood gases showed respiratory alkalosis. The patient was treated with nebulized short-acting bronchodilators and BiPAP support. According to ER reports, the patient became somnolent and appeared tired, and because of worsening arterial blood gases, he was intubated. Repeat arterial blood gases in the emergency room showed rising pCO2 and the development of a metabolic component, with a pH of 7.21 and pCO2 of 54 mmHg, consistent with combined respiratory and metabolic acidosis. The patient was transferred to the intensive care unit, where he is currently fully sedated and paralyzed on mechanical ventilation, receiving a tidal volume of 450 mL, total respirations of 18 (all passive), PEEP of 5 cm H2O, and FiO2 of 40%. His chest CT showed mild basal atelectasis and very small pleural effusions bilaterally. Currently, the patient is being treated for obstructive airway disease with IV steroids and nebulized short-acting bronchodilators. His eosinophil count was elevated to over 1800, and previous CBCs showed that eosinophils were similarly elevated on at least three occasions since 2021. A pulmonary function test in April of last year showed essentially normal results. Review of Systems Review of Systems: All systems reviewed & are unremarkable except as noted in HPI and below (HPI and below) [facility] Past Medical History Medical History Allergic asthma Tick bite Fatigue Acute hypoxic respiratory failure Inflamed acrochordon (~03/2024) red inflamed tag right axilla 0.2 cm excised 03/20/2024 Elevated fasting glucose (03/06/24) fasting glucose 106 with GFR 72 on 03/06/2024. Chronic cough Personal history of tobacco use 2 packs per day for 23 years with patient stopping 1988. Irritable bowel syndrome with diarrhea Mixed hyperlipidemia Cholesterol 145, triglycerides 99, HDL 50, LDL 75 on 05/10/2023. Cholesterol 162, triglycerides 86, HDL 41, LDL 105 on 03/06/2024. Seasonal allergic rhinitis Urticaria Overweight (BMI 25.0-29.9) Acute bronchitis (~05/29/24) Chest x-ray normal on 08/18/2023. acute bronchitis with parainfluenza infection 05/29/2024 with hospitalization with discharge 06/02/2024. Gastro-esophageal reflux disease without esophagitis Encounter for prostate cancer screening PSA 2.0 on 05/10/2023. Stress fracture of femur medial femoral condyle right knee 2022 Arthritis of right knee Peripheral neuropathy Osteoarthritis of left knee Essential (primary) hypertension Male erectile dysfunction, unspecified Non-recurrent unilateral inguinal hernia without obstruction or gangrene Obstructive sleep apnea History of JEISON starting 1989 with split night sleep study 01/20/2023 with AHI of 8.4 with oxygen saturation to 86% with titration to 11 cm of water pressure with AirSense 11 CPAP with ResMed AirFit F20 fullface mask 01/20/2023. Raynaud's syndrome without gangrene Surgical History Surgical History S/P left unicompartmental knee replacement October 26, 2021 Status post arthroscopy of left knee (05/11/19) Osteochondral defect of condyle of femur History of toe surgery History of hernia repair Family History Family History Mother Diabetes mellitus Patient's mother is Family history of malignant neoplasm of brain Father Heart disease Patient's father is Family history of Parkinson's disease Hypertension Sibling Diabetes mellitus Asthma Other Family history of allergic disorder Family history of cardiovascular disease Social History Social History Social History: Patient lives with his . 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 He does admit to 3 beers and 3 cocktail weekly. Code status: Full code Surrogate decision maker: 2 grown children Smoking packs per day: 2 Smoking cigarettes per day: 40.0 Years smoked: 15 Smoking pack-years: 30.00 Smoking status: Former smoker Tobacco type: cigarettes Smoking end date: 05/02/88 Alcohol intake: current Drinks per week: 60 Alcohol use details: BEER/COCKTAILS Substance use: former Substance use type: marijuana Last use: 01/2024 Do You Feel Safe in your Home?: Yes Lack of Transportation: No Lack of Food: Never True Current Housing: I Have Housing Concerned About Future Housing: No Difficulty Paying Gas/Electric Bills: No Difficulty Paying for Meds: No Currently Unemployed: No Education: Trade/Vocational Certificate Difficulty w/ Childcare or Family Care: No Living arrangements: with family Occupation/Education: retired Gender identity (if verbalized by the patient): Male Sexual Orientation (if Verbalized by the Patient): Straight or Heterosexual Spiritual care concerns: No Agree to blood products: Yes Meds Home Medications and Allergies Home Medications ?Medication ?Instructions ?Recorded ?Confirmed ?Type ibbchksu-lge- 250 mg-dha 90 1 cap PO DAILY 10/27/22 07/25/24 History mg-epa 160 un-soiw-qkeh-zeax capsule (Ocuvite Adult 50 Plus) CPAP #1 ea 02/11/23 07/25/24 Rx tadalafil 20 mg tablet (Cialis) 20 mg PO DAILY PRN sexual activity 08/18/23 07/25/24 Rx #30 tabs albuterol sulfate 90 mcg/actuation 1 - 2 puff inhalation Q4-6H PRN 03/06/24 07/25/24 Rx aerosol inhaler shortness of breath or wheezing #8.5 grams cetirizine 10 mg tablet (Zyrtec) 10 mg PO BID allergy symptoms 03/20/24 07/25/24 History guaifenesin 600 mg tablet, 1,200 mg (2 x 600 mg) PO Q12HR #60 04/06/24 07/25/24 Rx extended release 12 hr (Mucus tabs Relief ER) sodium chloride 0.65 % nasal spray 1 spray intranasal Q6HR PRN 04/06/24 07/25/24 Rx aerosol (Saline Mist) Congestion #45 mL peak flow meter #1 ea 04/16/24 07/25/24 Rx albuterol sulfate 2.5 mg/3 mL 2.5 mg (3 mL) inhalation Q6H PRN 04/23/24 07/25/24 Rx (0.083 %) solution for nebulization shortness of breath or wheezing 1 month #180 mL amlodipine 10 mg tablet 10 mg PO . Q.a.m. #90 tabs 05/03/24 07/25/24 Rx atorvastatin 40 mg tablet 40 mg PO DAILY #90 tabs 05/03/24 07/25/24 Rx famotidine 40 mg tablet 40 mg PO DAILY #90 tabs 05/03/24 07/25/24 Rx hydrochlorothiazide 12.5 mg capsule 12.5 mg PO QAM #90 caps 05/03/24 07/25/24 Rx irbesartan 150 mg tablet 150 mg PO DAILY #90 tabs 05/03/24 07/25/24 Rx metoprolol tartrate 25 mg tablet 12.5 mg (1/2 x 25 mg) PO BID #90 05/03/24 07/25/24 Rx tabs montelukast 10 mg tablet 10 mg PO QHS #90 tabs 05/03/24 07/25/24 Rx (Singulair) omeprazole 20 mg capsule,delayed 20 mg PO DAILY #90 caps 05/03/24 07/25/24 Rx release Trelegy Ellipta 100 mcg-62.5 1 inh inhalation Q24H 1 month #60 05/25/24 07/25/24 Rx mcg-25 mcg powder for inhalation ea (pcvyxhhdjfv-fkgyrtark-vxdauudl) fluticasone fur. 100 mcg-umeclid 1 inh inhalation DAILY #60 ea 05/25/24 07/25/24 Rx 62.5 mcg-vilant 25 mcg inhalat.powder (Trelegy Ellipta) Allergies Allergy/AdvReac Type Severity Reaction Status Date / Time aspirin Allergy Intermediate EYES Verified 07/25/24 09:36 SWELLING ephedrine Allergy Intermediate Hives Verified 07/25/24 09:36 pseudoephedrine Allergy Intermediate Hives Verified 07/25/24 09:36 Vital Signs Vital Signs - 24 hr 07/25/24 12:08 07/25/24 12:18 07/25/24 12:29 Temperature Pulse Rate 114 H 115 H 115 H Respiratory Rate 27 H 25 H 24 H Blood Pressure 145/72 H Pulse Oximetry 98 99 Oxygen Delivery BiPAP Oxygen Flow Rate Fraction of Inspired Oxygen 07/25/24 13:05 07/25/24 13:32 07/25/24 14:02 Temperature Pulse Rate 120 H 121 H Respiratory Rate 32 H 32 H Blood Pressure 115/67 Pulse Oximetry 100 94 Oxygen Delivery Nasal Cannula Oxygen Flow Rate 2 Fraction of Inspired Oxygen 07/25/24 14:13 07/25/24 14:24 07/25/24 14:38 Temperature Pulse Rate 125 H 125 H 124 H Respiratory Rate 45 H 31 H 24 H Blood Pressure 150/70 H Pulse Oximetry 96 99 98 Oxygen Delivery BiPAP Oxygen Flow Rate Fraction of Inspired Oxygen 07/25/24 14:41 07/25/24 14:48 07/25/24 15:15 Temperature Pulse Rate 123 H 116 H Respiratory Rate 35 H 38 H Blood Pressure 138/84 141/88 H Pulse Oximetry 98 100 Oxygen Delivery BiPAP Oxygen Flow Rate Fraction of Inspired Oxygen 07/25/24 15:33 07/25/24 16:20 07/25/24 16:24 Temperature Pulse Rate 118 H 125 H 120 H Respiratory Rate 32 H 33 H 25 H Blood Pressure 129/87 160/68 H 160/88 H Pulse Oximetry 96 99 99 Oxygen Delivery Oxygen Flow Rate Fraction of Inspired Oxygen 07/25/24 16:35 07/25/24 16:47 07/25/24 16:50 Temperature Pulse Rate 136 H 130 H 130 H Respiratory Rate 27 H 14 Blood Pressure 119/80 Pulse Oximetry 98 99 Oxygen Delivery Mechanical Ventilation Oxygen Flow Rate Fraction of Inspired Oxygen 100 07/25/24 17:10 07/25/24 17:17 07/25/24 17:40 Temperature Pulse Rate 137 H 137 H 128 H Respiratory Rate 14 14 16 Blood Pressure 209/94 H 168/72 H Pulse Oximetry 98 97 Oxygen Delivery Oxygen Flow Rate Fraction of Inspired Oxygen 07/25/24 17:57 07/25/24 18:17 07/25/24 18:18 Temperature Pulse Rate 138 H 143 H 143 H Respiratory Rate 24 H 24 H Blood Pressure Pulse Oximetry 100 Oxygen Delivery Mechanical Ventilation Oxygen Flow Rate Fraction of Inspired Oxygen 40 07/25/24 18:31 07/25/24 18:31 07/25/24 18:37 Temperature Pulse Rate 145 H 145 H 128 H Respiratory Rate 20 20 21 H Blood Pressure 157/75 H Pulse Oximetry 95 Oxygen Delivery Oxygen Flow Rate Fraction of Inspired Oxygen 07/25/24 19:10 07/25/24 19:16 07/25/24 19:32 Temperature Pulse Rate 125 H 124 H 120 H Respiratory Rate 24 H 24 H 24 H Blood Pressure 101/60 102/63 118/64 Pulse Oximetry 94 94 96 Oxygen Delivery Oxygen Flow Rate Fraction of Inspired Oxygen 07/25/24 19:53 07/25/24 19:57 07/25/24 20:10 Temperature Pulse Rate 122 H 122 H 120 H Respiratory Rate 29 H 28 H Blood Pressure 128/69 Pulse Oximetry 96 99 Oxygen Delivery Mechanical Ventilation Oxygen Flow Rate Fraction of Inspired Oxygen 07/25/24 20:30 07/25/24 20:55 07/25/24 21:00 Temperature Pulse Rate 122 H 123 H 123 H Respiratory Rate 20 34 H Blood Pressure 131/66 Pulse Oximetry 96 95 Oxygen Delivery Mechanical Ventilation Oxygen Flow Rate Fraction of Inspired Oxygen 07/25/24 21:00 07/25/24 21:30 07/25/24 21:30 Temperature Pulse Rate 123 H Respiratory Rate 34 H Blood Pressure Pulse Oximetry 97 Oxygen Delivery Mechanical Ventilation Oxygen Flow Rate Fraction of Inspired Oxygen 40 40 07/25/24 21:32 07/25/24 21:50 07/25/24 22:00 Temperature 36.1 C L Pulse Rate 123 H 117 H Respiratory Rate 34 H Blood Pressure 123/95 H Pulse Oximetry 95 Oxygen Delivery Oxygen Flow Rate Fraction of Inspired Oxygen 40 07/25/24 22:00 07/25/24 22:30 07/25/24 22:40 Temperature Pulse Rate 117 H 116 H 119 H Respiratory Rate 24 H 24 H 23 H Blood Pressure 108/64 Pulse Oximetry 97 Oxygen Delivery Oxygen Flow Rate Fraction of Inspired Oxygen 07/25/24 22:40 07/25/24 23:00 07/25/24 23:24 Temperature Pulse Rate 119 H 122 H 116 H Respiratory Rate 29 H 26 H Blood Pressure Pulse Oximetry 98 Oxygen Delivery Mechanical Ventilation Oxygen Flow Rate Fraction of Inspired Oxygen 07/25/24 23:29 07/25/24 23:56 07/25/24 23:56 Temperature Pulse Rate 118 H Respiratory Rate 24 H Blood Pressure Pulse Oximetry 96 Oxygen Delivery Mechanical Ventilation Oxygen Flow Rate Fraction of Inspired Oxygen 40 40 07/26/24 00:00 07/26/24 00:00 07/26/24 00:00 Temperature 36.8 C Pulse Rate 113 H 113 H 113 H Respiratory Rate 27 H 28 H 28 H Blood Pressure 128/69 Pulse Oximetry 96 Oxygen Delivery Oxygen Flow Rate Fraction of Inspired Oxygen 07/26/24 00:00 07/26/24 00:00 07/26/24 01:00 Temperature Pulse Rate 116 H 112 H 110 H Respiratory Rate 28 H 26 H Blood Pressure Pulse Oximetry Oxygen Delivery Oxygen Flow Rate Fraction of Inspired Oxygen 07/26/24 01:46 07/26/24 01:46 07/26/24 02:00 Temperature Pulse Rate 109 H 109 H 109 H Respiratory Rate 28 H Blood Pressure Pulse Oximetry 96 Oxygen Delivery Mechanical Ventilation Oxygen Flow Rate Fraction of Inspired Oxygen 07/26/24 02:00 07/26/24 02:00 07/26/24 02:00 Temperature Pulse Rate 109 H 109 H 109 H Respiratory Rate 26 H 26 H 26 H Blood Pressure 122/59 L Pulse Oximetry 96 Oxygen Delivery Oxygen Flow Rate Fraction of Inspired Oxygen 07/26/24 03:00 07/26/24 04:00 07/26/24 04:00 Temperature 36.8 C Pulse Rate 109 H 110 H Respiratory Rate 27 H 31 H Blood Pressure 144/65 H Pulse Oximetry 98 Oxygen Delivery Oxygen Flow Rate Fraction of Inspired Oxygen 40 07/26/24 04:00 07/26/24 04:00 07/26/24 04:00 Temperature Pulse Rate 110 H 110 H Respiratory Rate 31 H 31 H Blood Pressure Pulse Oximetry 98 Oxygen Delivery Mechanical Ventilation Oxygen Flow Rate Fraction of Inspired Oxygen 40 07/26/24 04:00 07/26/24 04:14 07/26/24 04:25 Temperature Pulse Rate 104 H 106 H 110 H Respiratory Rate 33 H 33 H Blood Pressure Pulse Oximetry Oxygen Delivery Oxygen Flow Rate Fraction of Inspired Oxygen 07/26/24 04:50 07/26/24 05:00 07/26/24 05:15 Temperature Pulse Rate 107 H 103 H 102 H Respiratory Rate 30 H 29 H Blood Pressure Pulse Oximetry 96 Oxygen Delivery Mechanical Ventilation Oxygen Flow Rate Fraction of Inspired Oxygen 07/26/24 05:15 07/26/24 05:30 07/26/24 06:00 Temperature Pulse Rate 102 H 102 H 107 H Respiratory Rate 29 H 31 H 105 H Blood Pressure Pulse Oximetry Oxygen Delivery Oxygen Flow Rate Fraction of Inspired Oxygen 07/26/24 06:00 07/26/24 06:00 07/26/24 06:00 Temperature Pulse Rate 105 H 110 H 105 H Respiratory Rate 34 H 34 H Blood Pressure 125/65 Pulse Oximetry 34 L Oxygen Delivery Oxygen Flow Rate Fraction of Inspired Oxygen 07/26/24 08:00 07/26/24 08:00 07/26/24 08:00 Temperature Pulse Rate 102 H Respiratory Rate 22 H Blood Pressure Pulse Oximetry 96 Oxygen Delivery Mechanical Ventilation Oxygen Flow Rate Fraction of Inspired Oxygen 40 40 07/26/24 08:00 07/26/24 08:00 07/26/24 08:26 Temperature 36.6 C Pulse Rate 102 H 102 H 101 H Respiratory Rate 22 H 20 Blood Pressure 103/45 L Pulse Oximetry 96 Oxygen Delivery Oxygen Flow Rate Fraction of Inspired Oxygen 07/26/24 08:34 07/26/24 08:46 07/26/24 08:50 Temperature Pulse Rate 100 99 99 Respiratory Rate 26 H 24 H Blood Pressure Pulse Oximetry 96 Oxygen Delivery Mechanical Ventilation Oxygen Flow Rate Fraction of Inspired Oxygen 07/26/24 08:50 07/26/24 09:30 07/26/24 09:50 Temperature Pulse Rate 99 99 98 Respiratory Rate 24 H Blood Pressure Pulse Oximetry 96 95 Oxygen Delivery Mechanical Ventilation Mechanical Ventilation Oxygen Flow Rate Fraction of Inspired Oxygen 07/26/24 10:00 07/26/24 10:00 07/26/24 10:31 Temperature Pulse Rate 98 98 98 Respiratory Rate 18 18 18 Blood Pressure 103/54 L Pulse Oximetry Oxygen Delivery Oxygen Flow Rate Fraction of Inspired Oxygen 07/26/24 11:31 07/26/24 11:31 07/26/24 11:32 Temperature Pulse Rate 94 94 94 Respiratory Rate 18 18 18 Blood Pressure Pulse Oximetry Oxygen Delivery Oxygen Flow Rate Fraction of Inspired Oxygen 07/26/24 11:32 Temperature Pulse Rate 94 Respiratory Rate 18 Blood Pressure Pulse Oximetry Oxygen Delivery Oxygen Flow Rate Fraction of Inspired Oxygen Exam Narrative: GENERAL APPEARANCE: Well developed, well nourished, fully sedated and paralyzed on mechanical ventilation SKIN: Inspection of the skin reveals no rashes, ulcerations or petechiae. HEENT: Sclerae anicteric and conjunctivae pink and moist. NECK: Supple. There was no thyroid enlargement, and no tenderness, or masses were felt. CHEST: Normal AP diameter and normal contour without any kyphoscoliosis. LUNGS: Clear lungs anteriorly no wheezing CARDIAC: There was a regular rate and rhythm without any murmurs, gallops, rubs. ABDOMEN: Soft and nontender with normal bowel sounds. There was no organomegaly. LYMPH NODES: No lymphadenopathy was appreciated in the neck.. EXTREMITIES: No cyanosis, clubbing or edema. NEUROLOGIC: Paralyzed and fully sedated on mechanical ventilation Results Laboratory Findings 07/26/24 04:14 07/26/24 04:14 ABG, PT/INR, D-dimer: ABG ABG pH 7.382 (7.350-7.450) 07/26/24 04:31 ABG pCO2 33.1 mmHg (35.0-45.0) L 07/26/24 04:31 ABG pO2 100.3 mmHg (80.0-100.0) H 07/26/24 04:31 ABG O2 Saturation 97.5 % (95.0-100.0) 07/26/24 04:31 PT/INR, D-dimer PT 13.4 Seconds (11.1-14.7) 07/25/24 10:05 PT Cancelled 07/25/24 10:05 INR 1.0 07/25/24 10:05 INR Cancelled 07/25/24 10:05 D-Dimer 0.28 ug/mL (<0.48) 07/25/24 10:05 Abnormal lab findings: Abnormal Labs 07/25/24 07/25/24 07/25/24 09:49 10:25 14:32 WBC 13.6 H RBC Hct Immature Gran % (Auto) Neut % (Auto) Lymph % (Auto) Grayson % (Auto) 9.7 H Eos % (Auto) 13.9 H Lymph # (Auto) 3.25 H [place] # (Auto) 1.3 H Eos # (Auto) 1.9 H Abs Immat Gran (auto) 0.05 H Absolute Neuts (auto) 6.9 H ABG pH ABG pCO2 30.6 L ABG pO2 68.7 L ABG HCO3 20.4 L ABG O2 Saturation 94.6 L ABG O2 Content 22.8 H VBG pCO2 VBG pO2 VBG HCO3 Sodium Carbon Dioxide Anion Gap 14 H BUN Creatinine Estimated GFR 56 L Glucose 118 H POC Capillary Glucose Magnesium Total Bilirubin 1.7 H Alkaline Phosphatase 173 H NT-Pro-B Natriuret Pep 102 H Triglycerides 157 H 07/25/24 07/25/24 07/25/24 14:43 17:07 23:59 WBC RBC Hct Immature Gran % (Auto) Neut % (Auto) Lymph % (Auto) [place] % (Auto) Eos % (Auto) Lymph # (Auto) [place] # (Auto) Eos # (Auto) Abs Immat Gran (auto) Absolute Neuts (auto) ABG pH 7.218 L* ABG pCO2 53.9 H ABG pO2 543.5 H ABG HCO3 21.5 L ABG O2 Saturation ABG O2 Content 25.4 H VBG pCO2 33.5 L VBG pO2 92.8 H VBG HCO3 19.1 L Sodium Carbon Dioxide Anion Gap BUN Creatinine Estimated GFR Glucose POC Capillary Glucose 196 H Magnesium Total Bilirubin Alkaline Phosphatase NT-Pro-B Natriuret Pep Triglycerides 07/26/24 07/26/24 04:14 04:31 WBC 16.4 H RBC 4.45 L Hct 40.3 L Immature Gran % (Auto) 0.6 H Neut % (Auto) 89.8 H Lymph % (Auto) 6.7 L [place] % (Auto) Eos % (Auto) Lymph # (Auto) [place] # (Auto) Eos # (Auto) Abs Immat Gran (auto) 0.10 H Absolute Neuts (auto) 14.7 H ABG pH ABG pCO2 33.1 L ABG pO2 100.3 H ABG HCO3 19.2 L ABG O2 Saturation ABG O2 Content VBG pCO2 VBG pO2 VBG HCO3 Sodium 136 L Carbon Dioxide 18 L Anion Gap 13 H BUN 33 H D Creatinine 2.18 H Estimated GFR 30 L Glucose 201 H POC Capillary Glucose Magnesium 2.5 H Total Bilirubin Alkaline Phosphatase 139 H NT-Pro-B Natriuret Pep Triglycerides
[2024-07-26 12:03] LABS: Glucose Point of Care 162 mg/dl (65-105)
[2024-07-26] MEDS: CENTRAL LINE FLUSH 10 ML IV PUSH ×2 (13:45→21:49)
[2024-07-26] MEDS: IPRATROPIUM 0.5 MG/ALBUTEROL SULFATE 2.5 MG AMPUL.NEB 3 ML INHALATION ×2 (15:12→20:30)
--- NOTE | 2024-07-26 15:36 | P.PNIM_ITS ---
Progress Note: A&P Assessment and Plan (1) Acute respiratory failure with hypoxia and hypercapnia: Code(s): J96.01 - Acute respiratory failure with hypoxia; J96.02 - Acute respiratory failure with hypercapnia Status: Acute Assessment and Plan: Acute hypoxic and hypercarbic respiratory failure which appears to be secondary to status asthmaticus. Patient has history of allergic asthma and his presentation is consistent. Patient may also have mild underlying COPD considering his long history of smoking but has not been officially diagnosed. CT scan did not show any infiltrates and procalcitonin level was low suggesting against any pneumonia Currently intubated and on mechanical ventilation. Patient was heavily sedated. Patient was still a synchronous with ventilator and was given rocuronium ABG and chest x-ray reviewed Ventilator settings reviewed. Peak pressures have improved after sedation and neuromuscular elmer Continue fentanyl Versed and propofol and try to wean down sedatives. Will s tart Nimbex infusion for next 24 hours Continue Solu-Medrol, scheduled bronchodilators Add Claritin Hold antibiotics Consult pulmonology (2) Hypertension: Qualifiers: Hypertension type: primary hypertension Qualified Code(s): I10 - Essential (primary) hypertension Code(s): I10 - Essential (primary) hypertension Status: Chronic Assessment and Plan: Patient blood pressure is now soft secondary to sedation. Hold antihypertensive medications (3) Allergic asthma: Qualifiers: Asthma severity: severe Asthma persistence: persistent Asthma complication type: with acute exacerbation Qualified Code(s): J45.51 - Severe persistent asthma with (acute) exacerbation Code(s): J45.909 - Unspecified asthma, uncomplicated Status: Acute Assessment and Plan: See above (4) COPD (chronic obstructive pulmonary disease): Qualifiers: COPD type: unspecified COPD Qualified Code(s): J44.9 - Chronic obstructive pulmonary disease, unspecified Code(s): J44.9 - Chronic obstructive pulmonary disease, unspecified Status: Acute Assessment and Plan: See above (5) Obstructive sleep apnea: Code(s): G47.33 - Obstructive sleep apnea (adult) (pediatric) Status: Acute Assessment and Plan: Currently intubated and on mechanical ventilation (6) Status asthmaticus: Code(s): J45.902 - Unspecified asthma with status asthmaticus Status: Acute Assessment and Plan: See above Subjective Date/time seen: 07/26/24 15:36 Interval history: Discussed with the patient's . She reports the he is a patient of Dr. Brock. She reports the patient has never been diagnosed either as asthma versus COPD. Review of Systems Review of Systems: All systems reviewed & are unremarkable except as noted in HPI and below ROS unobtainable: Yes unobtainable due to endotracheal tube, unobtainable due to medical condition and unobtainable due to mental status Exam Narrative: General: Pt is sedated, intubated and on mechanical ventilation Lungs/Chest: Trachea central bilateral occasional wheezing, decreased overall air movement, Abdominal breathing, Cardiac: RRR. Normal S1 S2. No murmurs Circulation: Pedal pulses are intact and symmetrical. Abdomen: Decreased bowel sounds. Obese. Soft. NT. ND. Extremities: No clubbing, cyanosis or edema. Warm : Garcia in place Neurologic: Unable to assess due to sedation. Moves all 4 extremities to painful stimuli. PERRL Const: General: in distress and uncomfortable Other: , male, ill-appearing, significant respiratory distress HENMT: Face/Nose/Sinus: Normal nares present Mouth: Yes dry mucous membranes Eyes: General: appearance normal, both eyes and all related structures Sclera: sclerae normal Pupils: Equal, round and reactive pupils present EOM: EOMs intact bilaterally Resp: Other: BiPAP in place, tolerating okay. Intermittent coughing requiring removal of BiPAP mask. Significant tachypnea with subcostal retractions. Minimal air movement in all lung koch with faint consistent expiratory wheeze. No crackles or rhonchi. Cardio: Rate: tachycardic Rhythm: regular rhythm Other: S1-S2 present without murmur, rub, ectopy GI: Other: Abdomen soft, nondistended, nontender. Normoactive bowel sounds in all quadrants. Skin: General skin exam: normal color and no rashes or lesions noted Wounds: no wounds Neuro: Cranial nerves: Yes Equal, round and reactive pupils present Speech: normal speech Motor exam (neuro): 5/5 motor strength present throughout Sensory Exam: normal sensation Other: A&O x4. However somnolent/fatigued. Extrem: General: normal to inspection Psych: Mental Status: mental status grossly normal Affect: normal affect Other: Good insight and judgment, pleasant Objective Data Vital Signs Vital Signs: Vital Signs - 24 hr 07/25/24 16:20 07/25/24 16:24 07/25/24 16:35 Temperature Pulse Rate 125 H 120 H 136 H Respiratory Rate 33 H 25 H 27 H Blood Pressure 160/68 H 160/88 H 119/80 Pulse Oximetry 99 99 98 Oxygen Delivery Fraction of Inspired Oxygen 07/25/24 16:47 07/25/24 16:50 07/25/24 17:10 Temperature Pulse Rate 130 H 130 H 137 H Respiratory Rate 14 14 Blood Pressure Pulse Oximetry 99 Oxygen Delivery Mechanical Ventilation Fraction of Inspired Oxygen 100 07/25/24 17:17 07/25/24 17:40 07/25/24 17:57 Temperature Pulse Rate 137 H 128 H 138 H Respiratory Rate 14 16 Blood Pressure 209/94 H 168/72 H Pulse Oximetry 98 97 100 Oxygen Delivery Mechanical Ventilation Fraction of Inspired Oxygen 40 07/25/24 18:17 07/25/24 18:18 07/25/24 18:31 Temperature Pulse Rate 143 H 143 H 145 H Respiratory Rate 24 H 24 H 20 Blood Pressure Pulse Oximetry Oxygen Delivery Fraction of Inspired Oxygen 07/25/24 18:31 07/25/24 18:37 07/25/24 19:10 Temperature Pulse Rate 145 H 128 H 125 H Respiratory Rate 20 21 H 24 H Blood Pressure 157/75 H 101/60 Pulse Oximetry 95 94 Oxygen Delivery Fraction of Inspired Oxygen 07/25/24 19:16 07/25/24 19:32 07/25/24 19:53 Temperature Pulse Rate 124 H 120 H 122 H Respiratory Rate 24 H 24 H 29 H Blood Pressure 102/63 118/64 Pulse Oximetry 94 96 Oxygen Delivery Fraction of Inspired Oxygen 07/25/24 19:57 07/25/24 20:10 07/25/24 20:30 Temperature Pulse Rate 122 H 120 H 122 H Respiratory Rate 28 H 20 Blood Pressure 128/69 131/66 Pulse Oximetry 96 99 96 Oxygen Delivery Mechanical Ventilation Fraction of Inspired Oxygen 07/25/24 20:55 07/25/24 21:00 07/25/24 21:00 Temperature Pulse Rate 123 H 123 H 123 H Respiratory Rate 34 H 34 H Blood Pressure Pulse Oximetry 95 Oxygen Delivery Mechanical Ventilation Fraction of Inspired Oxygen 07/25/24 21:30 07/25/24 21:30 07/25/24 21:32 Temperature 96.9 F L Pulse Rate 123 H Respiratory Rate 34 H Blood Pressure 123/95 H Pulse Oximetry 97 95 Oxygen Delivery Mechanical Ventilation Fraction of Inspired Oxygen 40 40 07/25/24 21:50 07/25/24 22:00 07/25/24 22:00 Temperature Pulse Rate 117 H 117 H Respiratory Rate 24 H Blood Pressure 108/64 Pulse Oximetry 97 Oxygen Delivery Fraction of Inspired Oxygen 40 07/25/24 22:30 07/25/24 22:40 07/25/24 22:40 Temperature Pulse Rate 116 H 119 H 119 H Respiratory Rate 24 H 23 H Blood Pressure Pulse Oximetry 98 Oxygen Delivery Mechanical Ventilation Fraction of Inspired Oxygen 07/25/24 23:00 07/25/24 23:24 07/25/24 23:29 Temperature Pulse Rate 122 H 116 H 118 H Respiratory Rate 29 H 26 H 24 H Blood Pressure Pulse Oximetry Oxygen Delivery Fraction of Inspired Oxygen 07/25/24 23:56 07/25/24 23:56 07/26/24 00:00 Temperature 98.3 F Pulse Rate 113 H Respiratory Rate 27 H Blood Pressure 128/69 Pulse Oximetry 96 96 Oxygen Delivery Mechanical Ventilation Fraction of Inspired Oxygen 40 40 07/26/24 00:00 07/26/24 00:00 07/26/24 00:00 Temperature Pulse Rate 113 H 113 H 116 H Respiratory Rate 28 H 28 H 28 H Blood Pressure Pulse Oximetry Oxygen Delivery Fraction of Inspired Oxygen 07/26/24 00:00 07/26/24 01:00 07/26/24 01:46 Temperature Pulse Rate 112 H 110 H 109 H Respiratory Rate 26 H Blood Pressure Pulse Oximetry 96 Oxygen Delivery Mechanical Ventilation Fraction of Inspired Oxygen 07/26/24 01:46 07/26/24 02:00 07/26/24 02:00 Temperature Pulse Rate 109 H 109 H 109 H Respiratory Rate 28 H 26 H Blood Pressure 122/59 L Pulse Oximetry 96 Oxygen Delivery Fraction of Inspired Oxygen 07/26/24 02:00 07/26/24 02:00 07/26/24 03:00 Temperature Pulse Rate 109 H 109 H 109 H Respiratory Rate 26 H 26 H 27 H Blood Pressure Pulse Oximetry Oxygen Delivery Fraction of Inspired Oxygen 07/26/24 04:00 07/26/24 04:00 07/26/24 04:00 Temperature 98.3 F Pulse Rate 110 H Respiratory Rate 31 H Blood Pressure 144/65 H Pulse Oximetry 98 98 Oxygen Delivery Mechanical Ventilation Fraction of Inspired Oxygen 40 40 07/26/24 04:00 07/26/24 04:00 07/26/24 04:00 Temperature Pulse Rate 110 H 110 H 104 H Respiratory Rate 31 H 31 H Blood Pressure Pulse Oximetry Oxygen Delivery Fraction of Inspired Oxygen 07/26/24 04:14 07/26/24 04:25 07/26/24 04:50 Temperature Pulse Rate 106 H 110 H 107 H Respiratory Rate 33 H 33 H Blood Pressure Pulse Oximetry 96 Oxygen Delivery Mechanical Ventilation Fraction of Inspired Oxygen 07/26/24 05:00 07/26/24 05:15 07/26/24 05:15 Temperature Pulse Rate 103 H 102 H 102 H Respiratory Rate 30 H 29 H 29 H Blood Pressure Pulse Oximetry Oxygen Delivery Fraction of Inspired Oxygen 07/26/24 05:30 07/26/24 06:00 07/26/24 06:00 Temperature Pulse Rate 102 H 107 H 105 H Respiratory Rate 31 H 105 H 34 H Blood Pressure Pulse Oximetry Oxygen Delivery Fraction of Inspired Oxygen 07/26/24 06:00 07/26/24 06:00 07/26/24 08:00 Temperature Pulse Rate 110 H 105 H 102 H Respiratory Rate 34 H 22 H Blood Pressure 125/65 Pulse Oximetry 34 L Oxygen Delivery Fraction of Inspired Oxygen 07/26/24 08:00 07/26/24 08:00 07/26/24 08:00 Temperature 97.8 F Pulse Rate 102 H Respiratory Rate 22 H Blood Pressure 103/45 L Pulse Oximetry 96 96 Oxygen Delivery Mechanical Ventilation Fraction of Inspired Oxygen 40 40 07/26/24 08:00 07/26/24 08:26 07/26/24 08:34 Temperature Pulse Rate 102 H 101 H 100 Respiratory Rate 20 Blood Pressure Pulse Oximetry 96 Oxygen Delivery Mechanical Ventilation Fraction of Inspired Oxygen 07/26/24 08:46 07/26/24 08:50 07/26/24 08:50 Temperature Pulse Rate 99 99 99 Respiratory Rate 26 H 24 H 24 H Blood Pressure Pulse Oximetry Oxygen Delivery Fraction of Inspired Oxygen 07/26/24 09:30 07/26/24 09:50 07/26/24 10:00 Temperature Pulse Rate 99 98 98 Respiratory Rate 18 Blood Pressure Pulse Oximetry 96 95 Oxygen Delivery Mechanical Ventilation Mechanical Ventilation Fraction of Inspired Oxygen 07/26/24 10:00 07/26/24 10:00 07/26/24 10:00 Temperature Pulse Rate 98 98 98 Respiratory Rate 18 18 Blood Pressure 101/55 L Pulse Oximetry 95 Oxygen Delivery Fraction of Inspired Oxygen 07/26/24 10:31 07/26/24 11:31 07/26/24 11:31 Temperature Pulse Rate 98 94 94 Respiratory Rate 18 18 18 Blood Pressure 103/54 L Pulse Oximetry Oxygen Delivery Fraction of Inspired Oxygen 07/26/24 11:32 07/26/24 11:32 07/26/24 12:00 Temperature Pulse Rate 94 94 93 Respiratory Rate 18 18 18 Blood Pressure Pulse Oximetry Oxygen Delivery Fraction of Inspired Oxygen 07/26/24 12:00 07/26/24 12:00 07/26/24 12:00 Temperature Pulse Rate 93 93 93 Respiratory Rate 18 18 18 Blood Pressure 96/50 L Pulse Oximetry Oxygen Delivery Fraction of Inspired Oxygen 07/26/24 12:00 07/26/24 12:00 07/26/24 12:00 Temperature Pulse Rate 94 Respiratory Rate Blood Pressure Pulse Oximetry 96 Oxygen Delivery Mechanical Ventilation Fraction of Inspired Oxygen 40 40 07/26/24 12:00 07/26/24 13:00 07/26/24 14:00 Temperature 97.7 F Pulse Rate 93 89 89 Respiratory Rate 18 18 Blood Pressure 96/50 L 90/51 L Pulse Oximetry 96 Oxygen Delivery Fraction of Inspired Oxygen 07/26/24 14:00 07/26/24 14:00 07/26/24 14:00 Temperature Pulse Rate 89 89 89 Respiratory Rate 18 18 18 Blood Pressure 92/52 L Pulse Oximetry 96 Oxygen Delivery Fraction of Inspired Oxygen 07/26/24 14:00 07/26/24 14:00 07/26/24 14:56 Temperature Pulse Rate 89 89 86 Respiratory Rate 18 18 Blood Pressure 92/52 L Pulse Oximetry 96 Oxygen Delivery Mechanical Ventilation Fraction of Inspired Oxygen 07/26/24 15:13 07/26/24 15:30 Temperature Pulse Rate 86 86 Respiratory Rate 18 18 Blood Pressure Pulse Oximetry Oxygen Delivery Fraction of Inspired Oxygen Intake/Output Intake/Output: Intake & Output 07/23/24 07/24/24 07/25/24 07/26/24 23:59 23:59 23:59 23:59 Intake Total 1420.5 586.5 Output Total 230 Balance 1420.5 356.5 Meds/Results Medications: Active Medications Generic Name Dose Route Start Last Admin Trade Name Freq PRN Reason Stop Dose Admin Acetaminophen 650 mg 07/25/24 19:51 Acetaminophen Elixir 325 Mg/10.15 Ml Udc PO Q6H PRN Mild Pain (1-3) or Fever Albuterol/Ipratropium 3 ml 07/26/24 14:00 07/26/24 15:12 Ipratropium 0.5 Mg/Albuterol Sulfate 2.5 Mg Ampul.Neb 3 Ml INHALATION 3 ml Q6HRT JOSEMANUEL Administration Atorvastatin Calcium 40 mg 07/27/24 09:00 Atorvastatin 40 Mg Tablet PO DAILY JOSEMANUEL Dextrose 12.5 gm 07/25/24 20:01 Dextrose 50% 25 Gm/50 Ml Syringe IV PUSH PRN PRN Hypoglycemia Protocol Enoxaparin Sodium 40 mg 07/26/24 09:00 07/26/24 08:51 Enoxaparin 40 Mg/0.4 Ml Syringe SUB-Q 40 mg DAILY JOSEMANUEL Administration Fluticasone/Umeclidinium/Vilanterol 1 puff 07/27/24 08:00 Fluticasone/Umeclidin/Vilanter 100-62.5-25 Mcg Ellipta INHALATION DAILYRT JOSEMANUEL Glucagon 1 mg 07/25/24 20:01 Glucagon For Inj 1 Mg Vial IM PRN PRN Hypoglycemia Protocol Glucose 15 gm 07/25/24 20:01 Glucose Oral Gel 15 Gm Of Glucse In 37.5 Gm Tube PO PRN PRN Hypoglycemia Protocol Hydralazine HCl 10 mg 07/25/24 19:41 Hydralazine Hcl 20 Mg/Ml Vial IV PUSH Q8H PRN BP greater than 180/90 Midazolam HCl 100 mg in 100 mls @ 9 mls/hr 07/25/24 17:15 07/26/24 14:00 Versed 100 Mg/Ns 100 Ml IV CONT 9 mg/hr .Q11H7M JOSEMANUEL 9 mls/hr Titration Protocol 9 MG/HR Fentanyl Citrate 2,500 mcg in 250 mls @ 20 mls/hr 07/25/24 17:30 07/26/24 14:00 Fentanyl 2,500 Mcg/Ns 250 Ml IV CONT 125 mcg/hr .[id number] JOSEMANUEL 12.5 mls/hr Titration Protocol 200 MCG/HR Dextrose 1,000 mls @ 100 mls/hr 07/25/24 20:01 Dextrose 5% 1,000 Ml IVPB PRN PRN Hypoglycemia Protocol Propofol 100 mls @ 14.94 mls/hr 07/25/24 23:05 07/26/24 15:30 Diprivan IV CONT 30 mcg/kg/min .Q6H42M JOSEMANUEL 14.94 mls/hr Titration Protocol 30 MCG/KG/MIN Lactated Ringer's 1,000 mls @ 100 mls/hr 07/26/24 09:00 07/26/24 10:31 Lr - Lactated Ringers Iv IV CONT 100 mls/hr .Q10H JOSEMANUEL Administration Cisatracurium Besylate 200 mg/ 100 mls @ 4.98 mls/hr 07/26/24 09:15 07/26/24 14:00 Sodium Chloride IV CONT 2 mcg/kg/min .Q20H5M JOSEMANUEL 4.98 mls/hr Titration Protocol 2 MCG/KG/MIN Norepinephrine Bitartrate 8 mg in 250 mls @ 9.375 mls/hr 07/26/24 14:40 Levophed 8 Mg/D5w 250 Ml IV CONT .Q24H JOSEMANUEL Protocol 5 MCG/MIN Levalbuterol HCl 1.25 mg 07/25/24 20:00 07/26/24 15:12 Levalbuterol Neb 1.25 Mg/3 Ml INHALATION 1.25 mg Q6HRT JOSEMANUEL Administration Loratadine 10 mg 07/26/24 09:51 Loratadine 10 Mg Tablet FEED TUBE QAM [facility] Methylprednisolone Sodium Succinate 60 mg 07/26/24 18:00 Methylprednisolone Sod Succ 125 Mg Vial IV PUSH Q8H [facility] Montelukast Sodium 10 mg 07/26/24 21:00 Montelukast Sodium 10 Mg Tablet PO QHS [facility] Multi-Ingred Cream/Lotion/Oil/Oint 1 applic 07/26/24 21:00 Mineral Oil/White Petrolatum Ointment EACH EYE Q12HR [facility] Pantoprazole Sodium 40 mg 07/26/24 09:55 07/26/24 10:31 Pantoprazole Sodium Iv 40 Mg Vial IV PUSH 40 mg QAM JOSEMANUEL Administration Sodium Chloride 20 ml 07/26/24 10:36 Central Line Flush IV PUSH PRN PRN after blood draws Sodium Chloride 10 ml 07/26/24 10:36 Central Line Flush IV PUSH PRN PRN with TPN bag changes Sodium Chloride 10 ml 07/26/24 14:00 07/26/24 13:45 Central Line Flush IV PUSH 10 ml Q8HR JOSEMANUEL Administration Radiology Results: ITS Impressions Abdomen X-Ray 07/25/24 16:47 IMPRESSION: 1. Endotracheal tube tip 1 cm above the jose. 2. No acute cardiopulmonary disease. 3. Nasogastric tube extends into the stomach with distal tip projecting near the level of the gastroesophageal junction. Unclear with only AP projections tube extends back into the gastroesophageal junction were positioned more anteriorly in the body but superimposed over the gastroesophageal junction. Consider obtaining an oblique or crosstable lateral view for more definitive determination. Chest CT 07/25/24 17:51 IMPRESSION: 1. Minimal bilateral basal atelectasis with minimal effusion. 2. Endotracheal tube with the tip at the jose. Retraction by 2 to 3 cm is advised. 3. Left kidney stone. Chest X-Ray 07/26/24 10:28 IMPRESSION: 1. Lines and tubes in expected position as detailed above with left PICC line tip at the superior cavoatrial junction on the final image. 2. No acute cardiopulmonary disease. Labs Labs: Laboratory Results - last 24 hr 07/25/24 07/25/24 07/25/24 10:05 14:32 14:43 WBC RBC Hgb Hct MCV MCH MCHC RDW Plt Count MPV Immature Gran % (Auto) Neut % (Auto) Lymph % (Auto) [place] % (Auto) Eos % (Auto) Baso % (Auto) Lymph # (Auto) [place] # (Auto) Eos # (Auto) Baso # (Auto) Abs Immat Gran (auto) Absolute Neuts (auto) Absolute Nucleated RBC Nucleated RBC % Puncture Site ABG pH ABG pCO2 ABG pO2 ABG PO2/FiO2 Ratio ABG HCO3 ABG O2 Saturation ABG O2 Content ABG Base Excess A-a Gradient Oxyhemoglobin Carboxyhemoglobin Methemoglobin Reduced Hemoglobin Total Hemoglobin O2 Delivery Device O2 Liters/Min Minute Volume Vent Rate 12 Vent Mode FiO2 Expiratory Pressure 7 Tidal Volume PEEP Inspiratory Pressure 14 Peak Inspir Pressure Pressure Support Sodium Potassium Chloride Carbon Dioxide Anion Gap BUN Creatinine Estim Creat Clear Calc Estimated GFR Glucose POC Capillary Glucose Calcium Phosphorus Magnesium Total Bilirubin AST ALT Alkaline Phosphatase Total Protein Albumin Triglycerides 157 H Procalcitonin 0.2 Nasal MRSA (PCR) 07/25/24 07/25/24 07/25/24 17:07 21:49 23:59 WBC RBC Hgb Hct MCV MCH MCHC RDW Plt Count MPV Immature Gran % (Auto) Neut % (Auto) Lymph % (Auto) [place] % (Auto) Eos % (Auto) Baso % (Auto) Lymph # (Auto) [place] # (Auto) Eos # (Auto) Baso # (Auto) Abs Immat Gran (auto) Absolute Neuts (auto) Absolute Nucleated RBC Nucleated RBC % Puncture Site Right radial ABG pH 7.218 L* ABG pCO2 53.9 H ABG pO2 543.5 H ABG PO2/FiO2 Ratio 5.43 ABG HCO3 21.5 L ABG O2 Saturation 99.9 ABG O2 Content 25.4 H ABG Base Excess -7.0 A-a Gradient 115.6 Oxyhemoglobin 99.0 Carboxyhemoglobin Methemoglobin Reduced Hemoglobin Total Hemoglobin 17.2 O2 Delivery Device Ventilator O2 Liters/Min Not Reportable Minute Volume Not Reportable Vent Rate 14 Vent Mode Cmv FiO2 100 Expiratory Pressure Tidal Volume 400 PEEP 5 Inspiratory Pressure Peak Inspir Pressure Not Reportable Pressure Support Not Reportable Sodium Potassium Chloride Carbon Dioxide Anion Gap BUN Creatinine Estim Creat Clear Calc Estimated GFR Glucose POC Capillary Glucose 196 H Calcium Phosphorus Magnesium Total Bilirubin AST ALT Alkaline Phosphatase Total Protein Albumin Triglycerides Procalcitonin Nasal MRSA (PCR) Not detected 07/26/24 07/26/24 07/26/24 04:14 04:31 11:30 WBC 16.4 H RBC 4.45 L Hgb 14.2 D Hct 40.3 L MCV 90.6 MCH 31.9 MCHC 35.2 RDW 13.6 Plt Count 277 MPV 9.3 Immature Gran % (Auto) 0.6 H Neut % (Auto) 89.8 H Lymph % (Auto) 6.7 L [place] % (Auto) 2.6 Eos % (Auto) 0.1 Baso % (Auto) 0.2 Lymph # (Auto) 1.09 [place] # (Auto) 0.4 Eos # (Auto) 0.0 Baso # (Auto) 0.0 Abs Immat Gran (auto) 0.10 H Absolute Neuts (auto) 14.7 H Absolute Nucleated RBC 0.000 Nucleated RBC % 0.0 Puncture Site Left radial ABG pH 7.382 ABG pCO2 33.1 L ABG pO2 100.3 H ABG PO2/FiO2 Ratio 2.51 ABG HCO3 19.2 L ABG O2 Saturation 97.5 ABG O2 Content 20.1 ABG Base Excess -4.8 A-a Gradient 146.8 Oxyhemoglobin 97.0 Carboxyhemoglobin 0.4 Methemoglobin 0.2 Reduced Hemoglobin 2.4 Total Hemoglobin 14.7 O2 Delivery Device Ventilator O2 Liters/Min Not Reportable Minute Volume Not Reportable Vent Rate 14 Vent Mode Cmv FiO2 40 Expiratory Pressure Tidal Volume 450 PEEP 5 Inspiratory Pressure Peak Inspir Pressure Not Reportable Pressure Support Not Reportable Sodium 136 L Potassium 3.9 Chloride 105 Carbon Dioxide 18 L Anion Gap 13 H BUN 33 H D Creatinine 2.18 H Estim Creat Clear Calc 32 Estimated GFR 30 L Glucose 201 H POC Capillary Glucose 162 H Calcium 8.7 Phosphorus 3.6 Magnesium 2.5 H Total Bilirubin 1.0 AST 29 ALT 33 Alkaline Phosphatase 139 H Total Protein 7.0 Albumin 4.1 Triglycerides Procalcitonin Nasal MRSA (PCR) Quality VTE Prophylaxis VTE prophylaxis: pharmacologic ordered Hospitalist MIPS Advance Care Plan I have confirmed that the patient's Advanced Care Plan is present, code status is documented, or surrogate decision maker is listed in patient medical record.: Yes Medication Reconciliation I have utilized all available resources to obtain, update and review the patients current medications (includes all prescriptions, OTC, herbals, cannabis, and nutritional supplements).: Yes
[2024-07-26] MEDS: methylPREDNISolone SOD SUCC 125 MG VIAL 60 MG IV PUSH (17:45)
[2024-07-26 18:18] LABS: Glucose Point of Care 150 mg/dl (65-105)
[2024-07-26] MEDS: MIDAZOLAM 100MG/NS 100ML(*CRX) 100 MG/100 ML BAG 8 MG IV CONT (18:59)
[2024-07-26] MEDS: MONTELUKAST SODIUM 10 MG TABLET PO (21:50)
[2024-07-27] VITALS (45 sets, daily range): BP systolic 122–174; BP diastolic 60–89; PULSE 69–125; RESP 10–32; TEMP 36.1–36.9; O2SAT 84–98
[2024-07-27 00:01] LABS: Glucose Point of Care 173 mg/dl (65-105)
[2024-07-27] MEDS: IPRATROPIUM 0.5 MG/ALBUTEROL SULFATE 2.5 MG AMPUL.NEB 3 ML INHALATION ×4 (02:22→20:07)
[2024-07-27] MEDS: methylPREDNISolone SOD SUCC 125 MG VIAL 60 MG IV PUSH ×3 (02:50→18:38)
[2024-07-27] MEDS: PROPOFOL IV EMULSION 100 ML 14.94 MG IV CONT ×3 (05:22→18:36)
[2024-07-27 05:25] LABS: Base Excess ABG -1.6 mEq/l (+/-2.0); Fractional Inspired Oxygen 40 %; HCO3 ABG 23.9 mEq/l (22.0-26.0); Oxygen Saturation ABG 93.8 % (95.0-100.0); Oxyhemoglobin 93.5 % THb (90.0-100.0); PCO2 ABG 43.3 mmHg (35.0-45.0); PO2 ABG 71.4 mmHg (80.0-100.0); PO2 FiO2 Ratio Arterial Blood 1.79 %; Total Hemoglobin 13.7 g/dL (12.0-18.0)
[2024-07-27 05:26] LABS: Device VENTILATOR; Modified Allen's Test Pass; Site Drawn LEFT RADIAL
[2024-07-27 05:27] LABS: Arterial Blood Gas PEEP 5 cmH2O; Arterial Blood Gas Tidal Volume 450 ml; Arterial Blood Gas Vent Mode CMV; Arterial Blood Gas Ventilator rate 118 /MIN
[2024-07-27] MEDS: CENTRAL LINE FLUSH 10 ML IV PUSH ×3 (05:28→21:32)
[2024-07-27 05:51] LABS: Basophils Percent Auto 0.1 % (0.2-1.2); Eosinophils Percent Auto 0.1 % (0-4.4); Hematocrit 37.7 % (42.0-52.0); Hemoglobin 12.9 g/dL (14.0-18.0); Immature Granulocyte Absolute 0.09 K/mm3 (0.00-0.031); Immature Granulocyte Percent A 0.5 % (0-0.5); Lymphocytes Absolute Auto 0.94 K/mm3 (0.9-3.2); Lymphocytes Percent Auto 5.3 % (18.3-44.2); Mean Corpuscular HGB Conc 34.2 g/dl (32-36); Mean Corpuscular Hemoglobin 31.9 pg (26-34); Mean Corpuscular Volume 93.3 fl (80-100); Mean Platelet Volume 9.5 fl (7.4-10.4); Monocytes Absolute Auto 0.6 K/mm3 (0.1-0.6); Monocytes Percent Auto 3.6 % (2.6-8.5); Neutrophils Absolute Auto 16.2 K/mm3 (1.3-6.7); Neutrophils Percent Auto 90.4 % (45.5-73.1); Platelet Count Result 217 k/mm3 (150-375); Red Blood Count 4.04 M/mm3 (4.6-6.20); Red Cell Distribution Width 13.3 % (11.5-14.5); White Blood Count 17.9 K/mm3 (4.5-10.0)
[2024-07-27 06:07] LABS: Alanine Aminotransferase 26 U/L (6-50); Albumin Level 3.6 g/dL (3.5-5.1); Alkaline Phosphatase 114 U/L (38-126); Anion Gap 7 mmol/L (4-12); Aspartate Amino Transferase 24 U/L (17-59); Bilirubin,Total 0.4 mg/dL (0.2-1.3); Blood Urea Nitrogen 34 mg/dL (9-20); Calcium 8.6 mg/dL (8.4-10.2); Carbon Dioxide 25 mmol/L (22-30); Chloride 106 mmol/L (98-107); Estimated CRCL calculation 44 ml/min; Estimated Glomerular Filt Rate 45; Glucose 175 mg/dL (65-110); Magnesium 2.7 mg/dL (1.6-2.3); Phosphorus 4.1 mg/dL (2.5-4.5); Sodium 138 mmol/L (137-145)
[2024-07-27] MEDS: CISATRACURIUM BESYLATE 200 MG in SODIUM CHLORIDE 0.9% IV 80 ML IV CONT (07:00)
[2024-07-27] MEDS: LORATADINE 10 MG TABLET FEED TUBE (07:53)
[2024-07-27] MEDS: LACTATED RINGERS 1,000 ML 50 ML IV CONT (07:53)
[2024-07-27] MEDS: ATORVASTATIN 40 MG TABLET PO (07:53)
[2024-07-27] MEDS: ENOXAPARIN 40 MG/0.4 ML SYRINGE SUB-Q (07:53)
[2024-07-27] MEDS: MINERAL OIL/WHITE PETROLATUM OINTMENT 1 APPLIC EACH EYE ×2 (07:54→21:31)
[2024-07-27] MEDS: PANTOPRAZOLE SODIUM IV 40 MG VIAL IV PUSH (07:54)
--- NOTE | 2024-07-27 08:27 | WPDINTPN ---
Progress Note: A&P Assessment and Plan (1) Acute respiratory failure with hypoxia and hypercapnia: Code(s): J96.01 - Acute respiratory failure with hypoxia; J96.02 - Acute respiratory failure with hypercapnia Status: Acute Assessment and Plan: Acute hypoxic and hypercarbic respiratory failure which appears to be secondary to status asthmaticus. Patient has history of allergic asthma and his presentation is consistent. Patient may also have mild underlying COPD considering his long history of smoking but has not been officially diagnosed. CT scan did not show any infiltrates and procalcitonin level was low suggesting against any pneumonia Currently intubated and on mechanical ventilation. Patient was heavily sedated. Patient was still asynchronous with ventilator and was given rocuronium and started on Nimbex infusion ABG and chest x-ray reviewed Ventilator settings reviewed. I have discontinued Nimbex infusion. I have pause Versed. plan to do complete sedation holiday as the day goes and evaluate for weaning trial Continue Solu-Medrol, scheduled bronchodilators contain Claritin Hold antibiotics consult pulmonology (2) Hypertension: Qualifiers: Hypertension type: primary hypertension Qualified Code(s): I10 - Essential (primary) hypertension Code(s): I10 - Essential (primary) hypertension Status: Chronic Assessment and Plan: Patient blood pressure is now soft secondary to sedation. Hold antihypertensive medications (3) Allergic asthma: Qualifiers: Asthma severity: severe Asthma persistence: persistent Asthma complication type: with acute exacerbation Qualified Code(s): J45.51 - Severe persistent asthma with (acute) exacerbation Code(s): J45.909 - Unspecified asthma, uncomplicated Status: Acute Assessment and Plan: See above (4) COPD (chronic obstructive pulmonary disease): Qualifiers: COPD type: unspecified COPD Qualified Code(s): J44.9 - Chronic obstructive pulmonary disease, unspecified Code(s): J44.9 - Chronic obstructive pulmonary disease, unspecified Status: Acute Assessment and Plan: See above (5) Obstructive sleep apnea: Code(s): G47.33 - Obstructive sleep apnea (adult) (pediatric) Status: Acute Assessment and Plan: Currently intubated and on mechanical ventilation (6) Status asthmaticus: Code(s): J45.902 - Unspecified asthma with status asthmaticus Status: Acute Assessment and Plan: See above (7) GRACILEA (acute kidney injury): Code(s): N17.9 - Acute kidney failure, unspecified Status: Acute Assessment and Plan: patient developed GRACIELA. His creatinine yesterday was 2.18. Likely secondary to hypotension vs hypovolemia patient was given IV fluids and creatinine has improved today to 1.53 check renal ultrasound, CK, urine electrolyte monitor urine output electrolytes and creatinine continue IV fluids with decrease rate going for Plan DVT prophylaxis -Lovenox Stress ulcer prophylaxis -Protonix Nutrition - continue Tube Feeds Code Status - Full Code I spoke to patient's in detail at bedside and updated her with patient's current status and current treatment plan. I answered all her questions. Total Critical Care Time - 30 minutes Due to a high probability of clinically significant, life threatening deterioration, the patient required my highest level of preparedness to intervene emergently and I personally spent this critical care time directly and personally managing the patient. This critical care time included obtaining a history; examining the patient; pulse oximetry; ordering and review of studies; arranging urgent treatment with development of a management plan; evaluation of patient's response to treatment; frequent reassessment; and discussions with other providers. It was exclusive of separately billable procedures and treating other patients and teaching time. Please see Assessment and Plan section and the rest of the note for further information on patient assessment and treatment Subjective Date/time seen: 07/27/24 Overnight events reviewed. Afebrile Continues to be on mechanical ventilation 40 FiO2 tolerating tube feeds Continues to be sedated with propofol Versed and fentanyl and paralyzed with Nimbex other Vitals acceptable Improved UO Review of Systems Review of Systems: ROS unobtainable: Yes unobtainable due to endotracheal tube, unobtainable due to medical condition and unobtainable due to mental status Exam Narrative: General: Pt is sedated, intubated and on mechanical ventilation Lungs/Chest: Trachea central nol wheezing, Improved overall air movement, Cardiac: RRR. Normal S1 S2. No murmurs Circulation: Pedal pulses are intact and symmetrical. Abdomen: Decreased bowel sounds. Obese. Soft. NT. ND. Extremities: No clubbing, cyanosis or edema. Warm : Garcia in place Neurologic: Unable to assess due to sedation. Moves all 4 extremities to painful stimuli. PERRL Paralysed with nimbex Objective Data Vital Signs Vital Signs: Vital Signs - 24 hr 07/26/24 08:34 07/26/24 08:46 07/26/24 08:50 Temperature Pulse Rate 100 99 99 Respiratory Rate 26 H 24 H Blood Pressure Pulse Oximetry 96 Oxygen Delivery Mechanical Ventilation Fraction of Inspired Oxygen 07/26/24 08:50 07/26/24 09:30 07/26/24 09:50 Temperature Pulse Rate 99 99 98 Respiratory Rate 24 H Blood Pressure Pulse Oximetry 96 95 Oxygen Delivery Mechanical Ventilation Mechanical Ventilation Fraction of Inspired Oxygen 07/26/24 10:00 07/26/24 10:00 07/26/24 10:00 Temperature Pulse Rate 98 98 98 Respiratory Rate 18 18 Blood Pressure Pulse Oximetry Oxygen Delivery Fraction of Inspired Oxygen 07/26/24 10:00 07/26/24 10:31 07/26/24 11:31 Temperature Pulse Rate 98 98 94 Respiratory Rate 18 18 18 Blood Pressure 101/55 L 103/54 L Pulse Oximetry 95 Oxygen Delivery Fraction of Inspired Oxygen 07/26/24 11:31 07/26/24 11:32 07/26/24 11:32 Temperature Pulse Rate 94 94 94 Respiratory Rate 18 18 18 Blood Pressure Pulse Oximetry Oxygen Delivery Fraction of Inspired Oxygen 07/26/24 12:00 07/26/24 12:00 07/26/24 12:00 Temperature Pulse Rate 93 93 93 Respiratory Rate 18 18 18 Blood Pressure 96/50 L Pulse Oximetry Oxygen Delivery Fraction of Inspired Oxygen 07/26/24 12:00 07/26/24 12:00 07/26/24 12:00 Temperature Pulse Rate 93 94 Respiratory Rate 18 Blood Pressure Pulse Oximetry 96 Oxygen Delivery Mechanical Ventilation Fraction of Inspired Oxygen 40 07/26/24 12:00 07/26/24 12:00 07/26/24 13:00 Temperature 36.5 C Pulse Rate 93 89 Respiratory Rate 18 18 Blood Pressure 96/50 L 90/51 L Pulse Oximetry 96 Oxygen Delivery Fraction of Inspired Oxygen 40 07/26/24 14:00 07/26/24 14:00 07/26/24 14:00 Temperature Pulse Rate 89 89 89 Respiratory Rate 18 18 Blood Pressure 92/52 L Pulse Oximetry 96 Oxygen Delivery Fraction of Inspired Oxygen 07/26/24 14:00 07/26/24 14:00 07/26/24 14:00 Temperature Pulse Rate 89 89 89 Respiratory Rate 18 18 18 Blood Pressure 92/52 L Pulse Oximetry Oxygen Delivery Fraction of Inspired Oxygen 07/26/24 14:56 07/26/24 15:13 07/26/24 15:30 Temperature Pulse Rate 86 86 86 Respiratory Rate 18 18 Blood Pressure Pulse Oximetry 96 Oxygen Delivery Mechanical Ventilation Fraction of Inspired Oxygen 07/26/24 16:00 07/26/24 16:00 07/26/24 16:00 Temperature Pulse Rate 84 84 84 Respiratory Rate 18 18 18 Blood Pressure Pulse Oximetry Oxygen Delivery Fraction of Inspired Oxygen 07/26/24 16:00 07/26/24 16:00 07/26/24 16:00 Temperature Pulse Rate 84 84 Respiratory Rate 18 Blood Pressure 97/54 L Pulse Oximetry 96 Oxygen Delivery Mechanical Ventilation Fraction of Inspired Oxygen 40 07/26/24 16:00 07/26/24 16:00 07/26/24 17:18 Temperature 36.6 C Pulse Rate 84 84 Respiratory Rate 18 Blood Pressure 97/54 L Pulse Oximetry 96 96 Oxygen Delivery Mechanical Ventilation Fraction of Inspired Oxygen 40 07/26/24 17:45 07/26/24 17:45 07/26/24 18:00 Temperature Pulse Rate 86 86 86 Respiratory Rate 18 18 Blood Pressure Pulse Oximetry Oxygen Delivery Fraction of Inspired Oxygen 07/26/24 18:00 07/26/24 18:00 07/26/24 18:00 Temperature 36.5 C Pulse Rate 86 86 86 Respiratory Rate 18 18 18 Blood Pressure 107/62 Pulse Oximetry 96 Oxygen Delivery Fraction of Inspired Oxygen 07/26/24 18:00 07/26/24 18:00 07/26/24 18:59 Temperature Pulse Rate 86 86 88 Respiratory Rate 18 18 18 Blood Pressure 107/62 Pulse Oximetry Oxygen Delivery Fraction of Inspired Oxygen 07/26/24 18:59 07/26/24 20:00 07/26/24 20:00 Temperature 36.4 C Pulse Rate 88 87 84 Respiratory Rate 18 18 18 Blood Pressure 114/62 Pulse Oximetry 97 Oxygen Delivery Fraction of Inspired Oxygen 07/26/24 20:00 07/26/24 20:00 07/26/24 20:00 Temperature Pulse Rate 85 85 85 Respiratory Rate 18 18 18 Blood Pressure 114/62 Pulse Oximetry Oxygen Delivery Fraction of Inspired Oxygen 07/26/24 20:00 07/26/24 20:00 07/26/24 20:00 Temperature Pulse Rate 88 85 Respiratory Rate 18 Blood Pressure Pulse Oximetry 96 Oxygen Delivery Mechanical Ventilation Fraction of Inspired Oxygen 40 40 07/26/24 20:30 07/26/24 20:47 07/26/24 20:50 Temperature Pulse Rate 84 84 88 Respiratory Rate 18 18 Blood Pressure Pulse Oximetry 96 Oxygen Delivery Mechanical Ventilation Fraction of Inspired Oxygen 07/26/24 22:00 07/26/24 22:00 07/26/24 22:00 Temperature 36.6 C Pulse Rate 81 83 85 Respiratory Rate 20 18 18 Blood Pressure 124/70 Pulse Oximetry 96 Oxygen Delivery Fraction of Inspired Oxygen 07/26/24 22:00 07/26/24 22:00 07/26/24 22:00 Temperature Pulse Rate 81 80 81 Respiratory Rate 18 18 Blood Pressure 124/70 Pulse Oximetry Oxygen Delivery Fraction of Inspired Oxygen 07/26/24 23:00 07/26/24 23:42 07/26/24 23:42 Temperature Pulse Rate 82 88 88 Respiratory Rate 18 18 Blood Pressure Pulse Oximetry 96 Oxygen Delivery Mechanical Ventilation Fraction of Inspired Oxygen 07/26/24 23:43 07/26/24 23:44 07/27/24 00:00 Temperature 36.7 C Pulse Rate 81 81 81 Respiratory Rate 18 18 20 Blood Pressure 126/72 Pulse Oximetry 96 Oxygen Delivery Fraction of Inspired Oxygen 07/27/24 00:00 07/27/24 00:00 07/27/24 00:00 Temperature Pulse Rate 84 78 Respiratory Rate 18 18 Blood Pressure 126/72 Pulse Oximetry 96 Oxygen Delivery Mechanical Ventilation Fraction of Inspired Oxygen 40 40 07/27/24 00:00 07/27/24 02:00 07/27/24 02:00 Temperature 36.8 C Pulse Rate 82 79 78 Respiratory Rate 20 Blood Pressure 130/77 Pulse Oximetry 95 Oxygen Delivery Fraction of Inspired Oxygen 07/27/24 02:00 07/27/24 02:07 07/27/24 02:07 Temperature Pulse Rate 80 79 83 Respiratory Rate 18 18 18 Blood Pressure Pulse Oximetry Oxygen Delivery Fraction of Inspired Oxygen 07/27/24 02:12 07/27/24 02:22 07/27/24 02:31 Temperature Pulse Rate 81 80 87 Respiratory Rate 18 18 Blood Pressure 130/77 Pulse Oximetry 96 Oxygen Delivery Mechanical Ventilation Fraction of Inspired Oxygen 07/27/24 02:34 07/27/24 04:00 07/27/24 04:00 Temperature 36.9 C Pulse Rate 78 77 84 Respiratory Rate 18 20 18 Blood Pressure 123/73 Pulse Oximetry 96 Oxygen Delivery Fraction of Inspired Oxygen 07/27/24 04:00 07/27/24 04:00 07/27/24 04:00 Temperature Pulse Rate 85 84 85 Respiratory Rate 18 18 18 Blood Pressure 123/73 Pulse Oximetry Oxygen Delivery Fraction of Inspired Oxygen 07/27/24 04:00 07/27/24 04:00 07/27/24 04:00 Temperature Pulse Rate 85 76 Respiratory Rate 18 Blood Pressure Pulse Oximetry 96 Oxygen Delivery Mechanical Ventilation Fraction of Inspired Oxygen 40 40 07/27/24 05:22 07/27/24 05:22 07/27/24 05:25 Temperature Pulse Rate 81 81 85 Respiratory Rate 18 18 Blood Pressure Pulse Oximetry 96 Oxygen Delivery Mechanical Ventilation Fraction of Inspired Oxygen 07/27/24 06:00 07/27/24 06:00 07/27/24 06:00 Temperature 36.8 C Pulse Rate 75 81 84 Respiratory Rate 20 18 18 Blood Pressure 122/69 Pulse Oximetry 95 Oxygen Delivery Fraction of Inspired Oxygen 07/27/24 06:00 07/27/24 07:00 07/27/24 07:00 Temperature Pulse Rate 73 79 79 Respiratory Rate 18 18 Blood Pressure 137/74 137/74 Pulse Oximetry Oxygen Delivery Fraction of Inspired Oxygen 07/27/24 07:33 07/27/24 07:34 07/27/24 08:00 Temperature 36.9 C Pulse Rate 78 79 69 Respiratory Rate 18 18 18 Blood Pressure 136/75 141/69 H Pulse Oximetry 94 Oxygen Delivery Fraction of Inspired Oxygen 07/27/24 08:02 Temperature Pulse Rate 77 Respiratory Rate 18 Blood Pressure Pulse Oximetry Oxygen Delivery Fraction of Inspired Oxygen Intake/Output Intake/Output: Intake & Output 07/24/24 07/25/24 07/26/24 07/27/24 23:59 23:59 23:59 23:59 Intake Total 1420.5 2178.9 1259.2 Output Total 530 300 Balance 1420.5 1648.9 959.2 Meds/Results Medications: Active Medications Generic Name Dose Route Start Last Admin Trade Name Freq PRN Reason Stop Dose Admin Acetaminophen 650 mg 07/25/24 19:51 Acetaminophen Elixir 325 Mg/10.15 Ml Udc PO Q6H PRN Mild Pain (1-3) or Fever Albuterol/Ipratropium 3 ml 07/26/24 14:00 07/27/24 08:02 Ipratropium 0.5 Mg/Albuterol Sulfate 2.5 Mg Ampul.Neb 3 Ml INHALATION 3 ml Q6HRT JOSEMANUEL Administration Atorvastatin Calcium 40 mg 07/27/24 09:00 07/27/24 07:53 Atorvastatin 40 Mg Tablet PO 40 mg DAILY JOSEMANUEL Administration Dextrose 12.5 gm 07/25/24 20:01 Dextrose 50% 25 Gm/50 Ml Syringe IV PUSH PRN PRN Hypoglycemia Protocol Enoxaparin Sodium 40 mg 07/26/24 09:00 07/27/24 07:53 Enoxaparin 40 Mg/0.4 Ml Syringe SUB-Q 40 mg DAILY JOSEMANUEL Administration Fluticasone/Umeclidinium/Vilanterol 1 puff 07/27/24 08:00 07/27/24 08:01 Fluticasone/Umeclidin/Vilanter 100-62.5-25 Mcg Ellipta INHALATION Not Given DAILYRT JOSEMANUEL Glucagon 1 mg 07/25/24 20:01 Glucagon For Inj 1 Mg Vial IM PRN PRN Hypoglycemia Protocol Glucose 15 gm 07/25/24 20:01 Glucose Oral Gel 15 Gm Of Glucse In 37.5 Gm Tube PO PRN PRN Hypoglycemia Protocol Hydralazine HCl 10 mg 07/25/24 19:41 Hydralazine Hcl 20 Mg/Ml Vial IV PUSH Q8H PRN BP greater than 180/90 Midazolam HCl 100 mg in 100 mls @ 8 mls/hr 07/25/24 17:15 07/27/24 07:33 Versed 100 Mg/Ns 100 Ml IV CONT Infused .[id number] JOSEMANUEL Titration Protocol 8 MG/HR Fentanyl Citrate 2,500 mcg in 250 mls @ 20 mls/hr 07/25/24 17:30 07/27/24 06:00 Fentanyl 2,500 Mcg/Ns 250 Ml IV CONT 125 mcg/hr .[id number] JOSEMANUEL 12.5 mls/hr Titration Protocol 200 MCG/HR Dextrose 1,000 mls @ 100 mls/hr 07/25/24 20:01 Dextrose 5% 1,000 Ml IVPB PRN PRN Hypoglycemia Protocol Propofol 100 mls @ 14.94 mls/hr 07/25/24 23:05 07/27/24 05:22 Diprivan IV CONT 30 mcg/kg/min .Q6H42M JOSEMANUEL 14.94 mls/hr Administration Protocol 30 MCG/KG/MIN Lactated Ringer's 1,000 mls @ 50 mls/hr 07/26/24 09:00 07/27/24 07:53 Lr - Lactated Ringers Iv IV CONT 07/27/24 21:00 50 mls/hr .Q20H JOSEMANUEL Administration Cisatracurium Besylate 200 mg/ 100 mls @ 0 mls/hr 07/26/24 09:15 07/27/24 07:34 Sodium Chloride IV CONT 0 mcg/kg/min .Q0M JOSEMANUEL 0 mls/hr Titration Protocol Norepinephrine Bitartrate 8 mg in 250 mls @ 9.375 mls/hr 07/26/24 14:40 Levophed 8 Mg/D5w 250 Ml IV CONT .Q24H JOSEMANUEL Protocol 5 MCG/MIN Levalbuterol HCl 1.25 mg 07/25/24 20:00 07/27/24 08:01 Levalbuterol Neb 1.25 Mg/3 Ml INHALATION Not Given Q6HRT JOSEMANUEL Loratadine 10 mg 07/26/24 09:51 07/27/24 07:53 Loratadine 10 Mg Tablet FEED TUBE 10 mg QAM JOSEMANUEL Administration Methylprednisolone Sodium Succinate 60 mg 07/26/24 18:00 07/27/24 02:50 Methylprednisolone Sod Succ 125 Mg Vial IV PUSH 60 mg Q8H JOSEMANUEL Administration Montelukast Sodium 10 mg 07/26/24 21:00 07/26/24 21:50 Montelukast Sodium 10 Mg Tablet PO 10 mg QHS JOSEMANUEL Administration Multi-Ingred Cream/Lotion/Oil/Oint 1 applic 07/26/24 21:00 07/27/24 07:54 Mineral Oil/White Petrolatum Ointment EACH EYE 1 applic Q12HR JOSEMANUEL Administration Pantoprazole Sodium 40 mg 07/26/24 09:55 07/27/24 07:54 Pantoprazole Sodium Iv 40 Mg Vial IV PUSH 40 mg QAM JOSEMANUEL Administration Sodium Chloride 20 ml 07/26/24 10:36 Central Line Flush IV PUSH PRN PRN after blood draws Sodium Chloride 10 ml 07/26/24 10:36 Central Line Flush IV PUSH PRN PRN with TPN bag changes Sodium Chloride 10 ml 07/26/24 14:00 07/27/24 05:28 Central Line Flush IV PUSH 10 ml Q8HR JOSEMANUEL Administration Radiology Results: ITS Impressions Abdomen X-Ray 07/25/24 16:47 IMPRESSION: 1. Endotracheal tube tip 1 cm above the jose. 2. No acute cardiopulmonary disease. 3. Nasogastric tube extends into the stomach with distal tip projecting near the level of the gastroesophageal junction. Unclear with only AP projections tube extends back into the gastroesophageal junction were positioned more anteriorly in the body but superimposed over the gastroesophageal junction. Consider obtaining an oblique or crosstable lateral view for more definitive determination. Chest CT 07/25/24 17:51 IMPRESSION: 1. Minimal bilateral basal atelectasis with minimal effusion. 2. Endotracheal tube with the tip at the jose. Retraction by 2 to 3 cm is advised. 3. Left kidney stone. Chest X-Ray 07/26/24 10:28 IMPRESSION: 1. Lines and tubes in expected position as detailed above with left PICC line tip at the superior cavoatrial junction on the final image. 2. No acute cardiopulmonary disease. Labs Labs: Laboratory Results - last 24 hr 07/25/24 07/26/24 07/26/24 14:43 11:30 17:44 WBC RBC Hgb Hct MCV MCH MCHC RDW Plt Count MPV Immature Gran % (Auto) Neut % (Auto) Lymph % (Auto) [place] % (Auto) Eos % (Auto) Baso % (Auto) Lymph # (Auto) [place] # (Auto) Eos # (Auto) Baso # (Auto) Abs Immat Gran (auto) Absolute Neuts (auto) Absolute Nucleated RBC Nucleated RBC % Puncture Site ABG pH ABG pCO2 ABG pO2 ABG PO2/FiO2 Ratio ABG HCO3 ABG O2 Saturation ABG O2 Content ABG Base Excess A-a Gradient Oxyhemoglobin Total Hemoglobin O2 Delivery Device O2 Liters/Min Minute Volume Vent Rate 12 Vent Mode FiO2 Expiratory Pressure 7 Tidal Volume PEEP Inspiratory Pressure 14 Peak Inspir Pressure Pressure Support Sodium Potassium Chloride Carbon Dioxide Anion Gap BUN Creatinine Estim Creat Clear Calc Estimated GFR Glucose POC Capillary Glucose 162 H 150 H Calcium Phosphorus Magnesium Total Bilirubin AST ALT Alkaline Phosphatase Total Protein Albumin 07/26/24 07/27/24 07/27/24 23:55 05:12 05:39 WBC 17.9 H RBC 4.04 L Hgb 12.9 L Hct 37.7 L MCV 93.3 MCH 31.9 MCHC 34.2 RDW 13.3 Plt Count 217 MPV 9.5 Immature Gran % (Auto) 0.5 Neut % (Auto) 90.4 H Lymph % (Auto) 5.3 L [place] % (Auto) 3.6 Eos % (Auto) 0.1 Baso % (Auto) 0.1 L Lymph # (Auto) 0.94 [place] # (Auto) 0.6 Eos # (Auto) 0.0 Baso # (Auto) 0.0 Abs Immat Gran (auto) 0.09 H Absolute Neuts (auto) 16.2 H Absolute Nucleated RBC 0.000 Nucleated RBC % 0.0 Puncture Site Left radial ABG pH 7.360 ABG pCO2 43.3 ABG pO2 71.4 L ABG PO2/FiO2 Ratio 1.79 ABG HCO3 23.9 ABG O2 Saturation 93.8 L ABG O2 Content 18.0 ABG Base Excess -1.6 A-a Gradient 164.0 Oxyhemoglobin 93.5 Total Hemoglobin 13.7 O2 Delivery Device Ventilator O2 Liters/Min Not Reportable Minute Volume Not Reportable Vent Rate 118 Vent Mode Cmv FiO2 40 Expiratory Pressure Tidal Volume 450 PEEP 5 Inspiratory Pressure Peak Inspir Pressure Not Reportable Pressure Support Not Reportable Sodium 138 Potassium 4.0 Chloride 106 Carbon Dioxide 25 Anion Gap 7 BUN 34 H Creatinine 1.53 H Estim Creat Clear Calc 44 Estimated GFR 45 L Glucose 175 H POC Capillary Glucose 173 H Calcium 8.6 Phosphorus 4.1 Magnesium 2.7 H Total Bilirubin 0.4 AST 24 ALT 26 Alkaline Phosphatase 114 Total Protein 6.0 L Albumin 3.6 Quality VTE Prophylaxis VTE prophylaxis: pharmacologic ordered
[2024-07-27 09:01] LABS: Creatine Kinase 395 U/L (55-170)
--- NOTE | 2024-07-27 09:01 | PM.PNPUL ---
Progress Note: A&P Assessment and Plan (1) Status asthmaticus: Code(s): J45.902 - Unspecified asthma with status asthmaticus Status: Acute Assessment and Plan: This 68-year-old man, with normal pulmonary function testing measured 4 months ago, had had frequent coughing and wheezing, with three previous hospitalizations for obstructive airway disease over the last few months. He presented with a several-day history of progressively increasing shortness of breath and coughing. The patient?s clinical history of obstructive airway disease, combined with diagnostic studies showing eosinophilia and significant improvement with oral steroid regimens following each hospitalization, suggests uncontrolled eosinophilic asthma. The current presentation is typical for status asthmaticus, as the patient exhibited respiratory alkalosis, did not respond to bronchodilators administered in the ER, and progressed to metabolic and respiratory acidosis. Following intubation, the patient was fully sedated and paralyzed due to difficulties encountered by the certified medical records coder in ventilating him. Yesterday, a review of respiratory mechanics while the patient was passively ventilated showed a total respiratory resistance of 20 cm/L/sec, which is mildly elevated, and an expiratory time constant of 0.64 seconds, which is in the normal range. There was no auto PEEP. His chest CT shows mild atelectasis at the bases posteriorly and small pleural effusions, with no evidence of lower respiratory tract infection. Over the last 24 hours, the patient's respiratory status has remained stable while being fully sedated and paralyzed on mechanical ventilation. This morning, sedation was eased to assess the respiratory status, but the patient continues to breathe at the set number of breaths per minute. He is not responding to any commands as he remains sedated. On physical examination, there is mild expiratory wheezing. Respiratory mechanics this morning showed the development of auto-PEEP of less than 2 cm, an increase in total respiratory resistance from a previous value of 20 to approximately 30, as well as prolongation of the expiratory time constant to around 1.1 seconds, and an increase in peak inspiratory pressure. The chest X-ray shows no active lung disease. Arterial blood gases this morning did not show any hypercapnia, and the pH was normal. The patient is still receiving a relatively high dose of IV Solu-Medrol along with nebulized short-acting bronchodilators. Plan: I agree with the plan to ease sedation to evaluate the patient's cardiopulmonary status. It remains uncertain whether the worsening of respiratory mechanics is due to the retention of bronchial secretions, a relapse of bronchospasm, or his early awakening from sedation. The decision to reduce sedation in order to assess his respiratory status and central nervous system is appropriate, even though he may not yet be a candidate for a weaning trial. This case was discussed again with the certified medical records coder. (2) Acute respiratory failure with hypoxia and hypercapnia: Code(s): J96.01 - Acute respiratory failure with hypoxia; J96.02 - Acute respiratory failure with hypercapnia Status: Acute (3) Obstructive sleep apnea: Code(s): G47.33 - Obstructive sleep apnea (adult) (pediatric) Status: Acute (4) Personal history of tobacco use: Code(s): Z87.891 - Personal history of nicotine dependence Status: Acute Subjective Date/time seen: 07/27/24 09:01 Interval history: Patient remains intubated fully sedated and paralyzed on same ventilator settings. Review of Systems Review of Systems: All systems reviewed & are unremarkable except as noted in HPI and below (HPI and below) Exam Narrative: GENERAL APPEARANCE: Well developed, well nourished, fully sedated and paralyzed on mechanical ventilation SKIN: Inspection of the skin reveals no rashes, ulcerations or petechiae. HEENT: Sclerae anicteric and conjunctivae pink and moist. NECK: Supple. There was no thyroid enlargement, and no tenderness, or masses were felt. CHEST: Normal AP diameter and normal contour without any kyphoscoliosis. LUNGS: Mild expiratory wheezing this a.m. CARDIAC: There was a regular rate and rhythm without any murmurs, gallops, rubs. ABDOMEN: Soft and nontender with normal bowel sounds. There was no organomegaly. LYMPH NODES: No lymphadenopathy was appreciated in the neck.. EXTREMITIES: No cyanosis, clubbing or edema. NEUROLOGIC: Paralyzed and fully sedated on mechanical ventilation Objective Data Vital Signs Vital Signs: Vital Signs - 24 hr 07/26/24 09:30 07/26/24 09:50 07/26/24 10:00 Temperature Pulse Rate 99 98 98 Respiratory Rate 18 Blood Pressure Pulse Oximetry 96 95 Oxygen Delivery Mechanical Ventilation Mechanical Ventilation Fraction of Inspired Oxygen 07/26/24 10:00 07/26/24 10:00 07/26/24 10:00 Temperature Pulse Rate 98 98 98 Respiratory Rate 18 18 Blood Pressure 101/55 L Pulse Oximetry 95 Oxygen Delivery Fraction of Inspired Oxygen 07/26/24 10:31 07/26/24 11:31 07/26/24 11:31 Temperature Pulse Rate 98 94 94 Respiratory Rate 18 18 18 Blood Pressure 103/54 L Pulse Oximetry Oxygen Delivery Fraction of Inspired Oxygen 07/26/24 11:32 07/26/24 11:32 07/26/24 12:00 Temperature Pulse Rate 94 94 93 Respiratory Rate 18 18 18 Blood Pressure Pulse Oximetry Oxygen Delivery Fraction of Inspired Oxygen 07/26/24 12:00 07/26/24 12:00 07/26/24 12:00 Temperature Pulse Rate 93 93 93 Respiratory Rate 18 18 18 Blood Pressure 96/50 L Pulse Oximetry Oxygen Delivery Fraction of Inspired Oxygen 07/26/24 12:00 07/26/24 12:00 07/26/24 12:00 Temperature Pulse Rate 94 Respiratory Rate Blood Pressure Pulse Oximetry 96 Oxygen Delivery Mechanical Ventilation Fraction of Inspired Oxygen 40 40 07/26/24 12:00 07/26/24 13:00 07/26/24 14:00 Temperature 36.5 C Pulse Rate 93 89 89 Respiratory Rate 18 18 Blood Pressure 96/50 L 90/51 L Pulse Oximetry 96 Oxygen Delivery Fraction of Inspired Oxygen 07/26/24 14:00 07/26/24 14:00 07/26/24 14:00 Temperature Pulse Rate 89 89 89 Respiratory Rate 18 18 18 Blood Pressure 92/52 L Pulse Oximetry 96 Oxygen Delivery Fraction of Inspired Oxygen 07/26/24 14:00 07/26/24 14:00 07/26/24 14:56 Temperature Pulse Rate 89 89 86 Respiratory Rate 18 18 Blood Pressure 92/52 L Pulse Oximetry 96 Oxygen Delivery Mechanical Ventilation Fraction of Inspired Oxygen 07/26/24 15:13 07/26/24 15:30 07/26/24 16:00 Temperature Pulse Rate 86 86 84 Respiratory Rate 18 18 18 Blood Pressure Pulse Oximetry Oxygen Delivery Fraction of Inspired Oxygen 07/26/24 16:00 07/26/24 16:00 07/26/24 16:00 Temperature Pulse Rate 84 84 84 Respiratory Rate 18 18 18 Blood Pressure 97/54 L Pulse Oximetry Oxygen Delivery Fraction of Inspired Oxygen 07/26/24 16:00 07/26/24 16:00 07/26/24 16:00 Temperature Pulse Rate 84 Respiratory Rate Blood Pressure Pulse Oximetry 96 Oxygen Delivery Mechanical Ventilation Fraction of Inspired Oxygen 40 40 07/26/24 16:00 07/26/24 17:18 07/26/24 17:45 Temperature 36.6 C Pulse Rate 84 84 86 Respiratory Rate 18 18 Blood Pressure 97/54 L Pulse Oximetry 96 96 Oxygen Delivery Mechanical Ventilation Fraction of Inspired Oxygen 07/26/24 17:45 07/26/24 18:00 07/26/24 18:00 Temperature 36.5 C Pulse Rate 86 86 86 Respiratory Rate 18 18 Blood Pressure 107/62 Pulse Oximetry 96 Oxygen Delivery Fraction of Inspired Oxygen 07/26/24 18:00 07/26/24 18:00 07/26/24 18:00 Temperature Pulse Rate 86 86 86 Respiratory Rate 18 18 18 Blood Pressure 107/62 Pulse Oximetry Oxygen Delivery Fraction of Inspired Oxygen 07/26/24 18:00 07/26/24 18:59 07/26/24 18:59 Temperature Pulse Rate 86 88 88 Respiratory Rate 18 18 18 Blood Pressure Pulse Oximetry Oxygen Delivery Fraction of Inspired Oxygen 07/26/24 20:00 07/26/24 20:00 07/26/24 20:00 Temperature 36.4 C Pulse Rate 87 84 85 Respiratory Rate 18 18 18 Blood Pressure 114/62 Pulse Oximetry 97 Oxygen Delivery Fraction of Inspired Oxygen 07/26/24 20:00 07/26/24 20:00 07/26/24 20:00 Temperature Pulse Rate 85 85 Respiratory Rate 18 18 Blood Pressure 114/62 Pulse Oximetry Oxygen Delivery Fraction of Inspired Oxygen 40 07/26/24 20:00 07/26/24 20:00 07/26/24 20:30 Temperature Pulse Rate 88 85 84 Respiratory Rate 18 18 Blood Pressure Pulse Oximetry 96 Oxygen Delivery Mechanical Ventilation Fraction of Inspired Oxygen 40 07/26/24 20:47 07/26/24 20:50 07/26/24 22:00 Temperature 36.6 C Pulse Rate 84 88 81 Respiratory Rate 18 20 Blood Pressure 124/70 Pulse Oximetry 96 96 Oxygen Delivery Mechanical Ventilation Fraction of Inspired Oxygen 07/26/24 22:00 07/26/24 22:00 07/26/24 22:00 Temperature Pulse Rate 83 85 81 Respiratory Rate 18 18 18 Blood Pressure Pulse Oximetry Oxygen Delivery Fraction of Inspired Oxygen 07/26/24 22:00 07/26/24 22:00 07/26/24 23:00 Temperature Pulse Rate 80 81 82 Respiratory Rate 18 Blood Pressure 124/70 Pulse Oximetry 96 Oxygen Delivery Mechanical Ventilation Fraction of Inspired Oxygen 07/26/24 23:42 07/26/24 23:42 07/26/24 23:43 Temperature Pulse Rate 88 88 81 Respiratory Rate 18 18 18 Blood Pressure Pulse Oximetry Oxygen Delivery Fraction of Inspired Oxygen 07/26/24 23:44 07/27/24 00:00 07/27/24 00:00 Temperature 36.7 C Pulse Rate 81 81 84 Respiratory Rate 18 20 18 Blood Pressure 126/72 126/72 Pulse Oximetry 96 Oxygen Delivery Fraction of Inspired Oxygen 07/27/24 00:00 07/27/24 00:00 07/27/24 00:00 Temperature Pulse Rate 78 82 Respiratory Rate 18 Blood Pressure Pulse Oximetry 96 Oxygen Delivery Mechanical Ventilation Fraction of Inspired Oxygen 40 40 07/27/24 02:00 07/27/24 02:00 07/27/24 02:00 Temperature 36.8 C Pulse Rate 79 78 80 Respiratory Rate 20 18 Blood Pressure 130/77 Pulse Oximetry 95 Oxygen Delivery Fraction of Inspired Oxygen 07/27/24 02:07 07/27/24 02:07 07/27/24 02:12 Temperature Pulse Rate 79 83 81 Respiratory Rate 18 18 18 Blood Pressure 130/77 Pulse Oximetry Oxygen Delivery Fraction of Inspired Oxygen 07/27/24 02:22 07/27/24 02:31 07/27/24 02:34 Temperature Pulse Rate 80 87 78 Respiratory Rate 18 18 Blood Pressure Pulse Oximetry 96 Oxygen Delivery Mechanical Ventilation Fraction of Inspired Oxygen 07/27/24 04:00 07/27/24 04:00 07/27/24 04:00 Temperature 36.9 C Pulse Rate 77 84 85 Respiratory Rate 20 18 18 Blood Pressure 123/73 Pulse Oximetry 96 Oxygen Delivery Fraction of Inspired Oxygen 07/27/24 04:00 07/27/24 04:00 07/27/24 04:00 Temperature Pulse Rate 84 85 Respiratory Rate 18 18 Blood Pressure 123/73 Pulse Oximetry Oxygen Delivery Fraction of Inspired Oxygen 40 07/27/24 04:00 07/27/24 04:00 07/27/24 05:22 Temperature Pulse Rate 85 76 81 Respiratory Rate 18 18 Blood Pressure Pulse Oximetry 96 Oxygen Delivery Mechanical Ventilation Fraction of Inspired Oxygen 40 07/27/24 05:22 07/27/24 05:25 07/27/24 06:00 Temperature 36.8 C Pulse Rate 81 85 75 Respiratory Rate 18 20 Blood Pressure 122/69 Pulse Oximetry 96 95 Oxygen Delivery Mechanical Ventilation Fraction of Inspired Oxygen 07/27/24 06:00 07/27/24 06:00 07/27/24 06:00 Temperature Pulse Rate 81 84 73 Respiratory Rate 18 18 Blood Pressure Pulse Oximetry Oxygen Delivery Fraction of Inspired Oxygen 07/27/24 07:00 07/27/24 07:00 07/27/24 07:33 Temperature Pulse Rate 79 79 78 Respiratory Rate 18 18 18 Blood Pressure 137/74 137/74 Pulse Oximetry Oxygen Delivery Fraction of Inspired Oxygen 07/27/24 07:34 07/27/24 08:00 07/27/24 08:02 Temperature 36.9 C Pulse Rate 79 69 77 Respiratory Rate 18 18 18 Blood Pressure 136/75 141/69 H Pulse Oximetry 94 Oxygen Delivery Fraction of Inspired Oxygen 07/27/24 08:28 Temperature Pulse Rate 74 Respiratory Rate 18 Blood Pressure Pulse Oximetry Oxygen Delivery Fraction of Inspired Oxygen Intake/Output Intake/Output: Intake & Output 07/24/24 07/25/24 07/26/24 07/27/24 23:59 23:59 23:59 23:59 Intake Total 1420.5 2178.9 1259.2 Output Total 530 300 Balance 1420.5 1648.9 959.2 Meds/Results Medications: Active Medications Generic Name Dose Route Start Last Admin Trade Name Freq PRN Reason Stop Dose Admin Acetaminophen 650 mg 07/25/24 19:51 Acetaminophen Elixir 325 Mg/10.15 Ml Udc PO Q6H PRN Mild Pain (1-3) or Fever Albuterol/Ipratropium 3 ml 07/26/24 14:00 07/27/24 08:02 Ipratropium 0.5 Mg/Albuterol Sulfate 2.5 Mg Ampul.Neb 3 Ml INHALATION 3 ml Q6HRT JOSEMANUEL Administration Atorvastatin Calcium 40 mg 07/27/24 09:00 07/27/24 07:53 Atorvastatin 40 Mg Tablet PO 40 mg DAILY JOSEMANUEL Administration Dextrose 12.5 gm 07/25/24 20:01 Dextrose 50% 25 Gm/50 Ml Syringe IV PUSH PRN PRN Hypoglycemia Protocol Enoxaparin Sodium 40 mg 07/26/24 09:00 07/27/24 07:53 Enoxaparin 40 Mg/0.4 Ml Syringe SUB-Q 40 mg DAILY JOSEMANUEL Administration Fluticasone/Umeclidinium/Vilanterol 1 puff 07/27/24 08:00 07/27/24 08:01 Fluticasone/Umeclidin/Vilanter 100-62.5-25 Mcg Ellipta INHALATION Not Given DAILYRT JOSEMANUEL Glucagon 1 mg 07/25/24 20:01 Glucagon For Inj 1 Mg Vial IM PRN PRN Hypoglycemia Protocol Glucose 15 gm 07/25/24 20:01 Glucose Oral Gel 15 Gm Of Glucse In 37.5 Gm Tube PO PRN PRN Hypoglycemia Protocol Hydralazine HCl 10 mg 07/25/24 19:41 Hydralazine Hcl 20 Mg/Ml Vial IV PUSH Q8H PRN BP greater than 180/90 Midazolam HCl 100 mg in 100 mls @ 8 mls/hr 07/25/24 17:15 07/27/24 07:33 Versed 100 Mg/Ns 100 Ml IV CONT Infused .[id number] JOSEMANUEL Titration Protocol 8 MG/HR Fentanyl Citrate 2,500 mcg in 250 mls @ 20 mls/hr 07/25/24 17:30 07/27/24 06:00 Fentanyl 2,500 Mcg/Ns 250 Ml IV CONT 125 mcg/hr .[id number] JOSEMANUEL 12.5 mls/hr Titration Protocol 200 MCG/HR Dextrose 1,000 mls @ 100 mls/hr 07/25/24 20:01 Dextrose 5% 1,000 Ml IVPB PRN PRN Hypoglycemia Protocol Propofol 100 mls @ 14.94 mls/hr 07/25/24 23:05 07/27/24 05:22 Diprivan IV CONT 30 mcg/kg/min .Q6H42M JOSEMANUEL 14.94 mls/hr Administration Protocol 30 MCG/KG/MIN Lactated Ringer's 1,000 mls @ 50 mls/hr 07/26/24 09:00 07/27/24 07:53 Lr - Lactated Ringers Iv IV CONT 07/27/24 21:00 50 mls/hr .Q20H JOSEMANUEL Administration Cisatracurium Besylate 200 mg/ 100 mls @ 0 mls/hr 07/26/24 09:15 07/27/24 07:34 Sodium Chloride IV CONT 0 mcg/kg/min .Q0M JOSEMANUEL 0 mls/hr Titration Protocol Norepinephrine Bitartrate 8 mg in 250 mls @ 9.375 mls/hr 07/26/24 14:40 Levophed 8 Mg/D5w 250 Ml IV CONT .Q24H JOSEMANUEL Protocol 5 MCG/MIN Levalbuterol HCl 1.25 mg 07/25/24 20:00 07/27/24 08:01 Levalbuterol Neb 1.25 Mg/3 Ml INHALATION Not Given Q6HRT JOSEMANUEL Loratadine 10 mg 07/26/24 09:51 07/27/24 07:53 Loratadine 10 Mg Tablet FEED TUBE 10 mg QAM JOSEMANUEL Administration Methylprednisolone Sodium Succinate 60 mg 07/26/24 18:00 07/27/24 02:50 Methylprednisolone Sod Succ 125 Mg Vial IV PUSH 60 mg Q8H JOSEMANUEL Administration Montelukast Sodium 10 mg 07/26/24 21:00 07/26/24 21:50 Montelukast Sodium 10 Mg Tablet PO 10 mg QHS JOSEMANUEL Administration Multi-Ingred Cream/Lotion/Oil/Oint 1 applic 07/26/24 21:00 07/27/24 07:54 Mineral Oil/White Petrolatum Ointment EACH EYE 1 applic Q12HR JOSEMANUEL Administration Pantoprazole Sodium 40 mg 07/26/24 09:55 07/27/24 07:54 Pantoprazole Sodium Iv 40 Mg Vial IV PUSH 40 mg QAM JOSEMANUEL Administration Sodium Chloride 20 ml 07/26/24 10:36 Central Line Flush IV PUSH PRN PRN after blood draws Sodium Chloride 10 ml 07/26/24 10:36 Central Line Flush IV PUSH PRN PRN with TPN bag changes Sodium Chloride 10 ml 07/26/24 14:00 07/27/24 05:28 Central Line Flush IV PUSH 10 ml Q8HR JOSEMANUEL Administration Radiology Results: ITS Impressions Abdomen X-Ray 07/25/24 16:47 IMPRESSION: 1. Endotracheal tube tip 1 cm above the jose. 2. No acute cardiopulmonary disease. 3. Nasogastric tube extends into the stomach with distal tip projecting near the level of the gastroesophageal junction. Unclear with only AP projections tube extends back into the gastroesophageal junction were positioned more anteriorly in the body but superimposed over the gastroesophageal junction. Consider obtaining an oblique or crosstable lateral view for more definitive determination. Chest CT 07/25/24 17:51 IMPRESSION: 1. Minimal bilateral basal atelectasis with minimal effusion. 2. Endotracheal tube with the tip at the jose. Retraction by 2 to 3 cm is advised. 3. Left kidney stone. Chest X-Ray 07/26/24 10:28 IMPRESSION: 1. Lines and tubes in expected position as detailed above with left PICC line tip at the superior cavoatrial junction on the final image. 2. No acute cardiopulmonary disease. Labs Labs: Laboratory Results - last 24 hr 07/25/24 07/26/24 07/26/24 14:43 11:30 17:44 WBC RBC Hgb Hct MCV MCH MCHC RDW Plt Count MPV Immature Gran % (Auto) Neut % (Auto) Lymph % (Auto) [place]oula % (Auto) Eos % (Auto) Baso % (Auto) Lymph # (Auto) [place]oula # (Auto) Eos # (Auto) Baso # (Auto) Abs Immat Gran (auto) Absolute Neuts (auto) Absolute Nucleated RBC Nucleated RBC % Puncture Site ABG pH ABG pCO2 ABG pO2 ABG PO2/FiO2 Ratio ABG HCO3 ABG O2 Saturation ABG O2 Content ABG Base Excess A-a Gradient Oxyhemoglobin Total Hemoglobin O2 Delivery Device O2 Liters/Min Minute Volume Vent Rate 12 Vent Mode FiO2 Expiratory Pressure 7 Tidal Volume PEEP Inspiratory Pressure 14 Peak Inspir Pressure Pressure Support Sodium Potassium Chloride Carbon Dioxide Anion Gap BUN Creatinine Estim Creat Clear Calc Estimated GFR Glucose POC Capillary Glucose 162 H 150 H Calcium Phosphorus Magnesium Total Bilirubin AST ALT Alkaline Phosphatase Total Creatine Kinase Total Protein Albumin 07/26/24 07/27/24 07/27/24 23:55 05:12 05:37 WBC RBC Hgb Hct MCV MCH MCHC RDW Plt Count MPV Immature Gran % (Auto) Neut % (Auto) Lymph % (Auto) [place]oula % (Auto) Eos % (Auto) Baso % (Auto) Lymph # (Auto) [place]oula # (Auto) Eos # (Auto) Baso # (Auto) Abs Immat Gran (auto) Absolute Neuts (auto) Absolute Nucleated RBC Nucleated RBC % Puncture Site Left radial ABG pH 7.360 ABG pCO2 43.3 ABG pO2 71.4 L ABG PO2/FiO2 Ratio 1.79 ABG HCO3 23.9 ABG O2 Saturation 93.8 L ABG O2 Content 18.0 ABG Base Excess -1.6 A-a Gradient 164.0 Oxyhemoglobin 93.5 Total Hemoglobin 13.7 O2 Delivery Device Ventilator O2 Liters/Min Not Reportable Minute Volume Not Reportable Vent Rate 118 Vent Mode Cmv FiO2 40 Expiratory Pressure Tidal Volume 450 PEEP 5 Inspiratory Pressure Peak Inspir Pressure Not Reportable Pressure Support Not Reportable Sodium Potassium Chloride Carbon Dioxide Anion Gap BUN Creatinine Estim Creat Clear Calc Estimated GFR Glucose POC Capillary Glucose 173 H Calcium Phosphorus Magnesium Total Bilirubin AST ALT Alkaline Phosphatase Total Creatine Kinase 395 H Total Protein Albumin 07/27/24 05:39 WBC 17.9 H RBC 4.04 L Hgb 12.9 L Hct 37.7 L MCV 93.3 MCH 31.9 MCHC 34.2 RDW 13.3 Plt Count 217 MPV 9.5 Immature Gran % (Auto) 0.5 Neut % (Auto) 90.4 H Lymph % (Auto) 5.3 L [place] % (Auto) 3.6 Eos % (Auto) 0.1 Baso % (Auto) 0.1 L Lymph # (Auto) 0.94 [place]oula # (Auto) 0.6 Eos # (Auto) 0.0 Baso # (Auto) 0.0 Abs Immat Gran (auto) 0.09 H Absolute Neuts (auto) 16.2 H Absolute Nucleated RBC 0.000 Nucleated RBC % 0.0 Puncture Site ABG pH ABG pCO2 ABG pO2 ABG PO2/FiO2 Ratio ABG HCO3 ABG O2 Saturation ABG O2 Content ABG Base Excess A-a Gradient Oxyhemoglobin Total Hemoglobin O2 Delivery Device O2 Liters/Min Minute Volume Vent Rate Vent Mode FiO2 Expiratory Pressure Tidal Volume PEEP Inspiratory Pressure Peak Inspir Pressure Pressure Support Sodium 138 Potassium 4.0 Chloride 106 Carbon Dioxide 25 Anion Gap 7 BUN 34 H Creatinine 1.53 H Estim Creat Clear Calc 44 Estimated GFR 45 L Glucose 175 H POC Capillary Glucose Calcium 8.6 Phosphorus 4.1 Magnesium 2.7 H Total Bilirubin 0.4 AST 24 ALT 26 Alkaline Phosphatase 114 Total Creatine Kinase Total Protein 6.0 L Albumin 3.6
--- NOTE | 2024-07-27 09:17 | P.PNIM_ITS ---
Progress Note: A&P Assessment and Plan (1) Acute respiratory failure with hypoxia and hypercapnia: Code(s): J96.01 - Acute respiratory failure with hypoxia; J96.02 - Acute respiratory failure with hypercapnia Status: Acute Assessment and Plan: Acute hypoxic and hypercarbic respiratory failure which appears to be secondary to status asthmaticus. Patient has history of allergic asthma and his presentation is consistent. Patient may also have mild underlying COPD considering his long history of smoking but has not been officially diagnosed. CT scan did not show any infiltrates and procalcitonin level was low suggesting against any pneumonia Currently intubated and on mechanical ventilation. Patient was heavily sedated. Patient was still a synchronous with ventilator and was given rocuronium ABG and chest x-ray reviewed Ventilator settings reviewed. Peak pressures have improved after sedation and neuromuscular elmer Continue fentanyl Versed and propofol and try to wean down sedatives. Will s tart Nimbex infusion for next 24 hours Continue Solu-Medrol, scheduled bronchodilators Add Claritin Hold antibiotics Consult pulmonology (2) Hypertension: Qualifiers: Hypertension type: primary hypertension Qualified Code(s): I10 - Essential (primary) hypertension Code(s): I10 - Essential (primary) hypertension Status: Chronic Assessment and Plan: Patient blood pressure is now soft secondary to sedation. Hold antihypertensive medications (3) Allergic asthma: Qualifiers: Asthma complication type: with acute exacerbation Asthma persistence: persistent Asthma severity: severe Qualified Code(s): J45.51 - Severe persistent asthma with (acute) exacerbation Code(s): J45.909 - Unspecified asthma, uncomplicated Status: Acute Assessment and Plan: See above (4) COPD (chronic obstructive pulmonary disease): Qualifiers: COPD type: unspecified COPD Qualified Code(s): J44.9 - Chronic obstructive pulmonary disease, unspecified Code(s): J44.9 - Chronic obstructive pulmonary disease, unspecified Status: Acute Assessment and Plan: See above (5) Obstructive sleep apnea: Code(s): G47.33 - Obstructive sleep apnea (adult) (pediatric) Status: Acute Assessment and Plan: Currently intubated and on mechanical ventilation (6) Status asthmaticus: Code(s): J45.902 - Unspecified asthma with status asthmaticus Status: Acute Assessment and Plan: See above Subjective Date/time seen: 07/27/24 09:17 Interval history: Patient remains intubated and management as per ICU Review of Systems Review of Systems: All systems reviewed & are unremarkable except as noted in HPI and below ROS unobtainable: Yes unobtainable due to endotracheal tube, unobtainable due to medical condition and unobtainable due to mental status Exam Narrative: General: Pt is sedated, intubated and on mechanical ventilation Lungs/Chest: Trachea central bilateral occasional wheezing, decreased overall air movement, Abdominal breathing, Cardiac: RRR. Normal S1 S2. No murmurs Circulation: Pedal pulses are intact and symmetrical. Abdomen: Decreased bowel sounds. Obese. Soft. NT. ND. Extremities: No clubbing, cyanosis or edema. Warm : Garcia in place Neurologic: Unable to assess due to sedation. Moves all 4 extremities to painful stimuli. PERRL Const: General: in distress and uncomfortable Other: , male, ill-appearing, significant respiratory distress HENMT: Face/Nose/Sinus: Normal nares present Mouth: Yes dry mucous membranes Eyes: General: appearance normal, both eyes and all related structures Sclera: sclerae normal Pupils: Equal, round and reactive pupils present EOM: EOMs intact bilaterally Resp: Other: BiPAP in place, tolerating okay. Intermittent coughing requiring removal of BiPAP mask. Significant tachypnea with subcostal retractions. Minimal air movement in all lung koch with faint consistent expiratory wheeze. No crackles or rhonchi. Cardio: Rate: tachycardic Rhythm: regular rhythm Other: S1-S2 present without murmur, rub, ectopy GI: Other: Abdomen soft, nondistended, nontender. Normoactive bowel sounds in all quadrants. Skin: General skin exam: normal color and no rashes or lesions noted Wounds: no wounds Neuro: Cranial nerves: Yes Equal, round and reactive pupils present Speech: normal speech Motor exam (neuro): 5/5 motor strength present throughout Sensory Exam: normal sensation Other: A&O x4. However somnolent/fatigued. Extrem: General: normal to inspection Psych: Mental Status: mental status grossly normal Affect: normal affect Other: Good insight and judgment, pleasant Objective Data Vital Signs Vital Signs: Vital Signs - 24 hr 07/26/24 09:30 07/26/24 09:50 07/26/24 10:00 Temperature Pulse Rate 99 98 98 Respiratory Rate 18 Blood Pressure Pulse Oximetry 96 95 Oxygen Delivery Mechanical Ventilation Mechanical Ventilation Fraction of Inspired Oxygen 07/26/24 10:00 07/26/24 10:00 07/26/24 10:00 Temperature Pulse Rate 98 98 98 Respiratory Rate 18 18 Blood Pressure 101/55 L Pulse Oximetry 95 Oxygen Delivery Fraction of Inspired Oxygen 07/26/24 10:31 07/26/24 11:31 07/26/24 11:31 Temperature Pulse Rate 98 94 94 Respiratory Rate 18 18 18 Blood Pressure 103/54 L Pulse Oximetry Oxygen Delivery Fraction of Inspired Oxygen 07/26/24 11:32 07/26/24 11:32 07/26/24 12:00 Temperature Pulse Rate 94 94 93 Respiratory Rate 18 18 18 Blood Pressure Pulse Oximetry Oxygen Delivery Fraction of Inspired Oxygen 07/26/24 12:00 07/26/24 12:00 07/26/24 12:00 Temperature Pulse Rate 93 93 93 Respiratory Rate 18 18 18 Blood Pressure 96/50 L Pulse Oximetry Oxygen Delivery Fraction of Inspired Oxygen 07/26/24 12:00 07/26/24 12:00 07/26/24 12:00 Temperature Pulse Rate 94 Respiratory Rate Blood Pressure Pulse Oximetry 96 Oxygen Delivery Mechanical Ventilation Fraction of Inspired Oxygen 40 40 07/26/24 12:00 07/26/24 13:00 07/26/24 14:00 Temperature 97.7 F Pulse Rate 93 89 89 Respiratory Rate 18 18 Blood Pressure 96/50 L 90/51 L Pulse Oximetry 96 Oxygen Delivery Fraction of Inspired Oxygen 07/26/24 14:00 07/26/24 14:00 07/26/24 14:00 Temperature Pulse Rate 89 89 89 Respiratory Rate 18 18 18 Blood Pressure 92/52 L Pulse Oximetry 96 Oxygen Delivery Fraction of Inspired Oxygen 07/26/24 14:00 07/26/24 14:00 07/26/24 14:56 Temperature Pulse Rate 89 89 86 Respiratory Rate 18 18 Blood Pressure 92/52 L Pulse Oximetry 96 Oxygen Delivery Mechanical Ventilation Fraction of Inspired Oxygen 07/26/24 15:13 07/26/24 15:30 07/26/24 16:00 Temperature Pulse Rate 86 86 84 Respiratory Rate 18 18 18 Blood Pressure Pulse Oximetry Oxygen Delivery Fraction of Inspired Oxygen 07/26/24 16:00 07/26/24 16:00 07/26/24 16:00 Temperature Pulse Rate 84 84 84 Respiratory Rate 18 18 18 Blood Pressure 97/54 L Pulse Oximetry Oxygen Delivery Fraction of Inspired Oxygen 07/26/24 16:00 07/26/24 16:00 07/26/24 16:00 Temperature Pulse Rate 84 Respiratory Rate Blood Pressure Pulse Oximetry 96 Oxygen Delivery Mechanical Ventilation Fraction of Inspired Oxygen 40 40 07/26/24 16:00 07/26/24 17:18 07/26/24 17:45 Temperature 97.8 F Pulse Rate 84 84 86 Respiratory Rate 18 18 Blood Pressure 97/54 L Pulse Oximetry 96 96 Oxygen Delivery Mechanical Ventilation Fraction of Inspired Oxygen 07/26/24 17:45 07/26/24 18:00 07/26/24 18:00 Temperature 97.7 F Pulse Rate 86 86 86 Respiratory Rate 18 18 Blood Pressure 107/62 Pulse Oximetry 96 Oxygen Delivery Fraction of Inspired Oxygen 07/26/24 18:00 07/26/24 18:00 07/26/24 18:00 Temperature Pulse Rate 86 86 86 Respiratory Rate 18 18 18 Blood Pressure 107/62 Pulse Oximetry Oxygen Delivery Fraction of Inspired Oxygen 07/26/24 18:00 07/26/24 18:59 07/26/24 18:59 Temperature Pulse Rate 86 88 88 Respiratory Rate 18 18 18 Blood Pressure Pulse Oximetry Oxygen Delivery Fraction of Inspired Oxygen 07/26/24 20:00 07/26/24 20:00 07/26/24 20:00 Temperature 97.6 F Pulse Rate 87 84 85 Respiratory Rate 18 18 18 Blood Pressure 114/62 Pulse Oximetry 97 Oxygen Delivery Fraction of Inspired Oxygen 07/26/24 20:00 07/26/24 20:00 07/26/24 20:00 Temperature Pulse Rate 85 85 Respiratory Rate 18 18 Blood Pressure 114/62 Pulse Oximetry Oxygen Delivery Fraction of Inspired Oxygen 40 07/26/24 20:00 07/26/24 20:00 07/26/24 20:30 Temperature Pulse Rate 88 85 84 Respiratory Rate 18 18 Blood Pressure Pulse Oximetry 96 Oxygen Delivery Mechanical Ventilation Fraction of Inspired Oxygen 40 07/26/24 20:47 07/26/24 20:50 07/26/24 22:00 Temperature 98 F Pulse Rate 84 88 81 Respiratory Rate 18 20 Blood Pressure 124/70 Pulse Oximetry 96 96 Oxygen Delivery Mechanical Ventilation Fraction of Inspired Oxygen 07/26/24 22:00 07/26/24 22:00 07/26/24 22:00 Temperature Pulse Rate 83 85 81 Respiratory Rate 18 18 18 Blood Pressure Pulse Oximetry Oxygen Delivery Fraction of Inspired Oxygen 07/26/24 22:00 07/26/24 22:00 07/26/24 23:00 Temperature Pulse Rate 80 81 82 Respiratory Rate 18 Blood Pressure 124/70 Pulse Oximetry 96 Oxygen Delivery Mechanical Ventilation Fraction of Inspired Oxygen 07/26/24 23:42 07/26/24 23:42 07/26/24 23:43 Temperature Pulse Rate 88 88 81 Respiratory Rate 18 18 18 Blood Pressure Pulse Oximetry Oxygen Delivery Fraction of Inspired Oxygen 07/26/24 23:44 07/27/24 00:00 07/27/24 00:00 Temperature 98.1 F Pulse Rate 81 81 84 Respiratory Rate 18 20 18 Blood Pressure 126/72 126/72 Pulse Oximetry 96 Oxygen Delivery Fraction of Inspired Oxygen 07/27/24 00:00 07/27/24 00:00 07/27/24 00:00 Temperature Pulse Rate 78 82 Respiratory Rate 18 Blood Pressure Pulse Oximetry 96 Oxygen Delivery Mechanical Ventilation Fraction of Inspired Oxygen 40 40 07/27/24 02:00 07/27/24 02:00 07/27/24 02:00 Temperature 98.3 F Pulse Rate 79 78 80 Respiratory Rate 20 18 Blood Pressure 130/77 Pulse Oximetry 95 Oxygen Delivery Fraction of Inspired Oxygen 07/27/24 02:07 07/27/24 02:07 07/27/24 02:12 Temperature Pulse Rate 79 83 81 Respiratory Rate 18 18 18 Blood Pressure 130/77 Pulse Oximetry Oxygen Delivery Fraction of Inspired Oxygen 07/27/24 02:22 07/27/24 02:31 07/27/24 02:34 Temperature Pulse Rate 80 87 78 Respiratory Rate 18 18 Blood Pressure Pulse Oximetry 96 Oxygen Delivery Mechanical Ventilation Fraction of Inspired Oxygen 07/27/24 04:00 07/27/24 04:00 07/27/24 04:00 Temperature 98.4 F Pulse Rate 77 84 85 Respiratory Rate 20 18 18 Blood Pressure 123/73 Pulse Oximetry 96 Oxygen Delivery Fraction of Inspired Oxygen 07/27/24 04:00 07/27/24 04:00 07/27/24 04:00 Temperature Pulse Rate 84 85 Respiratory Rate 18 18 Blood Pressure 123/73 Pulse Oximetry Oxygen Delivery Fraction of Inspired Oxygen 40 07/27/24 04:00 07/27/24 04:00 07/27/24 05:22 Temperature Pulse Rate 85 76 81 Respiratory Rate 18 18 Blood Pressure Pulse Oximetry 96 Oxygen Delivery Mechanical Ventilation Fraction of Inspired Oxygen 40 07/27/24 05:22 07/27/24 05:25 07/27/24 06:00 Temperature 98.2 F Pulse Rate 81 85 75 Respiratory Rate 18 20 Blood Pressure 122/69 Pulse Oximetry 96 95 Oxygen Delivery Mechanical Ventilation Fraction of Inspired Oxygen 07/27/24 06:00 07/27/24 06:00 07/27/24 06:00 Temperature Pulse Rate 81 84 73 Respiratory Rate 18 18 Blood Pressure Pulse Oximetry Oxygen Delivery Fraction of Inspired Oxygen 07/27/24 07:00 07/27/24 07:00 07/27/24 07:33 Temperature Pulse Rate 79 79 78 Respiratory Rate 18 18 18 Blood Pressure 137/74 137/74 Pulse Oximetry Oxygen Delivery Fraction of Inspired Oxygen 07/27/24 07:34 07/27/24 08:00 07/27/24 08:02 Temperature 98.4 F Pulse Rate 79 69 77 Respiratory Rate 18 18 18 Blood Pressure 136/75 141/69 H Pulse Oximetry 94 Oxygen Delivery Fraction of Inspired Oxygen 07/27/24 08:28 Temperature Pulse Rate 74 Respiratory Rate 18 Blood Pressure Pulse Oximetry Oxygen Delivery Fraction of Inspired Oxygen Intake/Output Intake/Output: Intake & Output 07/24/24 07/25/24 07/26/24 07/27/24 23:59 23:59 23:59 23:59 Intake Total 1420.5 2178.9 1259.2 Output Total 530 300 Balance 1420.5 1648.9 959.2 Meds/Results Medications: Active Medications Generic Name Dose Route Start Last Admin Trade Name Freq PRN Reason Stop Dose Admin Acetaminophen 650 mg 07/25/24 19:51 Acetaminophen Elixir 325 Mg/10.15 Ml Udc PO Q6H PRN Mild Pain (1-3) or Fever Albuterol/Ipratropium 3 ml 07/26/24 14:00 07/27/24 08:02 Ipratropium 0.5 Mg/Albuterol Sulfate 2.5 Mg Ampul.Neb 3 Ml INHALATION 3 ml Q6HRT JOSEMANUEL Administration Atorvastatin Calcium 40 mg 07/27/24 09:00 07/27/24 07:53 Atorvastatin 40 Mg Tablet PO 40 mg DAILY JOSEMANUEL Administration Dextrose 12.5 gm 07/25/24 20:01 Dextrose 50% 25 Gm/50 Ml Syringe IV PUSH PRN PRN Hypoglycemia Protocol Enoxaparin Sodium 40 mg 07/26/24 09:00 07/27/24 07:53 Enoxaparin 40 Mg/0.4 Ml Syringe SUB-Q 40 mg DAILY JOSEMANUEL Administration Fluticasone/Umeclidinium/Vilanterol 1 puff 07/27/24 08:00 07/27/24 08:01 Fluticasone/Umeclidin/Vilanter 100-62.5-25 Mcg Ellipta INHALATION Not Given DAILYRT JOSEMANUEL Glucagon 1 mg 07/25/24 20:01 Glucagon For Inj 1 Mg Vial IM PRN PRN Hypoglycemia Protocol Glucose 15 gm 07/25/24 20:01 Glucose Oral Gel 15 Gm Of Glucse In 37.5 Gm Tube PO PRN PRN Hypoglycemia Protocol Hydralazine HCl 10 mg 07/25/24 19:41 Hydralazine Hcl 20 Mg/Ml Vial IV PUSH Q8H PRN BP greater than 180/90 Midazolam HCl 100 mg in 100 mls @ 8 mls/hr 07/25/24 17:15 07/27/24 07:33 Versed 100 Mg/Ns 100 Ml IV CONT Infused .[id number] JOSEMANUEL Titration Protocol 8 MG/HR Fentanyl Citrate 2,500 mcg in 250 mls @ 20 mls/hr 07/25/24 17:30 07/27/24 06:00 Fentanyl 2,500 Mcg/Ns 250 Ml IV CONT 125 mcg/hr .[id number] JOSEMANUEL 12.5 mls/hr Titration Protocol 200 MCG/HR Dextrose 1,000 mls @ 100 mls/hr 07/25/24 20:01 Dextrose 5% 1,000 Ml IVPB PRN PRN Hypoglycemia Protocol Propofol 100 mls @ 14.94 mls/hr 07/25/24 23:05 07/27/24 05:22 Diprivan IV CONT 30 mcg/kg/min .Q6H42M JOSEMANUEL 14.94 mls/hr Administration Protocol 30 MCG/KG/MIN Lactated Ringer's 1,000 mls @ 50 mls/hr 07/26/24 09:00 07/27/24 07:53 Lr - Lactated Ringers Iv IV CONT 07/27/24 21:00 50 mls/hr .Q20H JOSEMANUEL Administration Cisatracurium Besylate 200 mg/ 100 mls @ 0 mls/hr 07/26/24 09:15 07/27/24 07:34 Sodium Chloride IV CONT 0 mcg/kg/min .Q0M JOSEMANUEL 0 mls/hr Titration Protocol Norepinephrine Bitartrate 8 mg in 250 mls @ 9.375 mls/hr 07/26/24 14:40 Levophed 8 Mg/D5w 250 Ml IV CONT .Q24H JOSEMANUEL Protocol 5 MCG/MIN Levalbuterol HCl 1.25 mg 07/25/24 20:00 07/27/24 08:01 Levalbuterol Neb 1.25 Mg/3 Ml INHALATION Not Given Q6HRT JOSEMANUEL Loratadine 10 mg 07/26/24 09:51 07/27/24 07:53 Loratadine 10 Mg Tablet FEED TUBE 10 mg QAM JOSEMANUEL Administration Methylprednisolone Sodium Succinate 60 mg 07/26/24 18:00 07/27/24 02:50 Methylprednisolone Sod Succ 125 Mg Vial IV PUSH 60 mg Q8H JOSEMANUEL Administration Montelukast Sodium 10 mg 07/26/24 21:00 07/26/24 21:50 Montelukast Sodium 10 Mg Tablet PO 10 mg QHS JOSEMANUEL Administration Multi-Ingred Cream/Lotion/Oil/Oint 1 applic 07/26/24 21:00 07/27/24 07:54 Mineral Oil/White Petrolatum Ointment EACH EYE 1 applic Q12HR JOSEMANUEL Administration Pantoprazole Sodium 40 mg 07/26/24 09:55 07/27/24 07:54 Pantoprazole Sodium Iv 40 Mg Vial IV PUSH 40 mg QAM JOSEMANUEL Administration Sodium Chloride 20 ml 07/26/24 10:36 Central Line Flush IV PUSH PRN PRN after blood draws Sodium Chloride 10 ml 07/26/24 10:36 Central Line Flush IV PUSH PRN PRN with TPN bag changes Sodium Chloride 10 ml 07/26/24 14:00 07/27/24 05:28 Central Line Flush IV PUSH 10 ml Q8HR JOSEMANUEL Administration Radiology Results: ITS Impressions Abdomen X-Ray 07/25/24 16:47 IMPRESSION: 1. Endotracheal tube tip 1 cm above the jose. 2. No acute cardiopulmonary disease. 3. Nasogastric tube extends into the stomach with distal tip projecting near the level of the gastroesophageal junction. Unclear with only AP projections tube extends back into the gastroesophageal junction were positioned more anteriorly in the body but superimposed over the gastroesophageal junction. Consider obtaining an oblique or crosstable lateral view for more definitive determi nation. Chest CT 07/25/24 17:51 IMPRESSION: 1. Minimal bilateral basal atelectasis with minimal effusion. 2. Endotracheal tube with the tip at the jose. Retraction by 2 to 3 cm is advised. 3. Left kidney stone. Chest X-Ray 07/26/24 10:28 IMPRESSION: 1. Lines and tubes in expected position as detailed above with left PICC line tip at the superior cavoatrial junction on the final image. 2. No acute cardiopulmonary disease. Labs Labs: Laboratory Results - last 24 hr 07/25/24 07/26/24 07/26/24 14:43 11:30 17:44 WBC RBC Hgb Hct MCV MCH MCHC RDW Plt Count MPV Immature Gran % (Auto) Neut % (Auto) Lymph % (Auto) Hodgeman % (Auto) Eos % (Auto) Baso % (Auto) Lymph # (Auto) Hodgeman # (Auto) Eos # (Auto) Baso # (Auto) Abs Immat Gran (auto) Absolute Neuts (auto) Absolute Nucleated RBC Nucleated RBC % Puncture Site ABG pH ABG pCO2 ABG pO2 ABG PO2/FiO2 Ratio ABG HCO3 ABG O2 Saturation ABG O2 Content ABG Base Excess A-a Gradient Oxyhemoglobin Total Hemoglobin O2 Delivery Device O2 Liters/Min Minute Volume Vent Rate 12 Vent Mode FiO2 Expiratory Pressure 7 Tidal Volume PEEP Inspiratory Pressure 14 Peak Inspir Pressure Pressure Support Sodium Potassium Chloride Carbon Dioxide Anion Gap BUN Creatinine Estim Creat Clear Calc Estimated GFR Glucose POC Capillary Glucose 162 H 150 H Calcium Phosphorus Magnesium Total Bilirubin AST ALT Alkaline Phosphatase Total Creatine Kinase Total Protein Albumin 07/26/24 07/27/24 07/27/24 23:55 05:12 05:37 WBC RBC Hgb Hct MCV MCH MCHC RDW Plt Count MPV Immature Gran % (Auto) Neut % (Auto) Lymph % (Auto) Hodgeman % (Auto) Eos % (Auto) Baso % (Auto) Lymph # (Auto) Hodgeman # (Auto) Eos # (Auto) Baso # (Auto) Abs Immat Gran (auto) Absolute Neuts (auto) Absolute Nucleated RBC Nucleated RBC % Puncture Site Left radial ABG pH 7.360 ABG pCO2 43.3 ABG pO2 71.4 L ABG PO2/FiO2 Ratio 1.79 ABG HCO3 23.9 ABG O2 Saturation 93.8 L ABG O2 Content 18.0 ABG Base Excess -1.6 A-a Gradient 164.0 Oxyhemoglobin 93.5 Total Hemoglobin 13.7 O2 Delivery Device Ventilator O2 Liters/Min Not Reportable Minute Volume Not Reportable Vent Rate 118 Vent Mode Cmv FiO2 40 Expiratory Pressure Tidal Volume 450 PEEP 5 Inspiratory Pressure Peak Inspir Pressure Not Reportable Pressure Support Not Reportable Sodium Potassium Chloride Carbon Dioxide Anion Gap BUN Creatinine Estim Creat Clear Calc Estimated GFR Glucose POC Capillary Glucose 173 H Calcium Phosphorus Magnesium Total Bilirubin AST ALT Alkaline Phosphatase Total Creatine Kinase 395 H Total Protein Albumin 07/27/24 05:39 WBC 17.9 H RBC 4.04 L Hgb 12.9 L Hct 37.7 L MCV 93.3 MCH 31.9 MCHC 34.2 RDW 13.3 Plt Count 217 MPV 9.5 Immature Gran % (Auto) 0.5 Neut % (Auto) 90.4 H Lymph % (Auto) 5.3 L Hodgeman % (Auto) 3.6 Eos % (Auto) 0.1 Baso % (Auto) 0.1 L Lymph # (Auto) 0.94 Hodgeman # (Auto) 0.6 Eos # (Auto) 0.0 Baso # (Auto) 0.0 Abs Immat Gran (auto) 0.09 H Absolute Neuts (auto) 16.2 H Absolute Nucleated RBC 0.000 Nucleated RBC % 0.0 Puncture Site ABG pH ABG pCO2 ABG pO2 ABG PO2/FiO2 Ratio ABG HCO3 ABG O2 Saturation ABG O2 Content ABG Base Excess A-a Gradient Oxyhemoglobin Total Hemoglobin O2 Delivery Device O2 Liters/Min Minute Volume Vent Rate Vent Mode FiO2 Expiratory Pressure Tidal Volume PEEP Inspiratory Pressure Peak Inspir Pressure Pressure Support Sodium 138 Potassium 4.0 Chloride 106 Carbon Dioxide 25 Anion Gap 7 BUN 34 H Creatinine 1.53 H Estim Creat Clear Calc 44 Estimated GFR 45 L Glucose 175 H POC Capillary Glucose Calcium 8.6 Phosphorus 4.1 Magnesium 2.7 H Total Bilirubin 0.4 AST 24 ALT 26 Alkaline Phosphatase 114 Total Creatine Kinase Total Protein 6.0 L Albumin 3.6 Quality VTE Prophylaxis VTE prophylaxis: pharmacologic ordered Hospitalist MIPS Advance Care Plan I have confirmed that the patient's Advanced Care Plan is present, code status is documented, or surrogate decision maker is listed in patient medical record.: Yes Medication Reconciliation I have utilized all available resources to obtain, update and review the patients current medications (includes all prescriptions, OTC, herbals, cannabis, and nutritional supplements).: Yes
[2024-07-27] MEDS: FENTANYL 2,500MCG/NS250ML(*CRX 2,500 MCG/250 ML BAG 12.5 MCG IV CONT (09:23)
[2024-07-27 10:28] LABS: Creatinine Urine 104.8 mg/dL; Sodium Urine Random 27 meq/L
--- NOTE | 2024-07-27 10:58 | PCNFU ---
Nutrition Follow-Up Complete: Suboptimal Energy Intake as related to mechanical ventilation as evidenced by NPO/TF. Meet estimated nutritional needs.- Progressing toward goal with tube feeding Goal: Pt current nutrition is Vital AF 1.2 @ 50 ml/h with flushes 30 ml q 4 h. Nutrition recommendation: No new nutrition recommendations. May titrate up tube feeding goal rate when propofol is titrated down Last recorded weight is 83.2 kg. Bowel Motility: +1 BM 07/27/24 Labs Reviewed: Hgb 12.9, Hct 37.7, BUN 34, Cre 1.53, Glu 175, Mag 2.7 Meds Noted:LR, fentanyl, propofol @ 14.94 ml/h to provide 394 kcal Skin: WNL Additional Notes: Vent day 2. Vital AF 1.2 @ 50 ml/h provides 1320 kcal, 83 g protein, 892 ml free water. Total kcal with propofol 714 kcal/day. Will re-assess tube rate at next follow up to better meet estimated needs. Currently meeting nutrition needs @ 16 ata/kg and 1 g protein/kg Will monitor weight, labs, skin, diet orders, meds every Tuesday and Tuesday
[2024-07-27] MEDS: CISATRACURIUM BESYLATE 20 MG/10 ML VIAL 12.5 MG IV PUSH (11:14)
[2024-07-27 12:00] LABS: Glucose Point of Care 207 mg/dl (65-105)
[2024-07-27] MEDS: INSULIN ASPART (*BKC) 100 UNITS/ML SUB-Q ×2 (13:12→16:23)
[2024-07-27] MEDS: MONTELUKAST SODIUM 10 MG TABLET PO (21:32)
[2024-07-27 23:20] LABS: Glucose Point of Care 164 mg/dl (65-105)
[2024-07-28] VITALS (47 sets, daily range): BP systolic 136–203; BP diastolic 68–118; PULSE 52–135; RESP 8–30; TEMP 36.1–37.4; O2SAT 90–97
[2024-07-28] MEDS: IPRATROPIUM 0.5 MG/ALBUTEROL SULFATE 2.5 MG AMPUL.NEB 3 ML INHALATION ×4 (01:46→19:51)
[2024-07-28] MEDS: PROPOFOL IV EMULSION 100 ML 14.94 MG IV CONT ×2 (02:00→06:21)
[2024-07-28] MEDS: FENTANYL 2,500MCG/NS250ML(*CRX 2,500 MCG/250 ML BAG 20 MCG IV CONT (02:00)
[2024-07-28] MEDS: CISATRACURIUM BESYLATE 200 MG in SODIUM CHLORIDE 0.9% IV 80 ML IV CONT (02:22)
[2024-07-28] MEDS: methylPREDNISolone SOD SUCC 125 MG VIAL 60 MG IV PUSH ×3 (02:45→21:04)
[2024-07-28] MEDS: dexmedeTOMIDine 400 MCG/100 ML 400 MCG/100 ML BAG IV CONT (02:46)
[2024-07-28] MEDS: MIDAZOLAM HCL (*CRX) 2 MG/2 ML VIAL 4 MG IV PUSH ×3 (02:51→23:05)
[2024-07-28 05:17] LABS: Alveolar/Arterial O2 Gradient 163.3 mmHg; Fractional Inspired Oxygen 40 %; HCO3 ABG 28.1 mEq/l (22.0-26.0); Oxygen Saturation ABG 94.4 % (95.0-100.0); Oxyhemoglobin 93.7 % THb (90.0-100.0); PCO2 ABG 44.6 mmHg (35.0-45.0); PO2 ABG 70.6 mmHg (80.0-100.0); PO2 FiO2 Ratio Arterial Blood 1.76 %; Total Hemoglobin 14.4 g/dL (12.0-18.0); pH ABG 7.417 (7.350-7.450)
[2024-07-28 05:46] LABS: Modified Allen's Test Pass; Site Drawn RIGHT RADIAL
[2024-07-28 05:47] LABS: Arterial Blood Gas PEEP 8 cmH2O; Arterial Blood Gas Tidal Volume 450 ml; Arterial Blood Gas Vent Mode CMV; Arterial Blood Gas Ventilator rate 18 /MIN; Device VENTILATOR
[2024-07-28 06:53] LABS: Basophils Percent Auto 0.1 % (0.2-1.2); Hemoglobin 13.6 g/dL (14.0-18.0); Immature Granulocyte Absolute 0.12 K/mm3 (0.00-0.031); Immature Granulocyte Percent A 0.7 % (0-0.5); Lymphocytes Absolute Auto 0.55 K/mm3 (0.9-3.2); Lymphocytes Percent Auto 3.4 % (18.3-44.2); Mean Corpuscular HGB Conc 33.2 g/dl (32-36); Mean Corpuscular Hemoglobin 31.2 pg (26-34); Mean Platelet Volume 9.4 fl (7.4-10.4); Monocytes Absolute Auto 0.5 K/mm3 (0.1-0.6); Neutrophils Percent Auto 92.8 % (45.5-73.1); Platelet Count Result 253 k/mm3 (150-375); Red Blood Count 4.36 M/mm3 (4.6-6.20); Red Cell Distribution Width 13.3 % (11.5-14.5); White Blood Count 16.2 K/mm3 (4.5-10.0)
[2024-07-28 07:11] LABS: Alanine Aminotransferase 28 U/L (6-50); Albumin Level 3.8 g/dL (3.5-5.1); Alkaline Phosphatase 112 U/L (38-126); Anion Gap 6 mmol/L (4-12); Aspartate Amino Transferase 23 U/L (17-59); Bilirubin,Total 0.4 mg/dL (0.2-1.3); Blood Urea Nitrogen 31 mg/dL (9-20); Calcium 8.6 mg/dL (8.4-10.2); Carbon Dioxide 29 mmol/L (22-30); Chloride 104 mmol/L (98-107); Estimated CRCL calculation 65 ml/min; Estimated Glomerular Filt Rate > 60; Glucose 199 mg/dL (65-110); Magnesium 2.5 mg/dL (1.6-2.3); Phosphorus 3.7 mg/dL (2.5-4.5); Potassium 4.5 mmol/L (3.4-5.0); Sodium 139 mmol/L (137-145); Triglycerides 148 mg/dL (<150)
[2024-07-28] MEDS: CENTRAL LINE FLUSH 10 ML IV PUSH ×3 (08:10→21:14)
[2024-07-28] MEDS: LORATADINE 10 MG TABLET FEED TUBE (08:24)
[2024-07-28] MEDS: ATORVASTATIN 40 MG TABLET PO (08:24)
[2024-07-28] MEDS: MINERAL OIL/WHITE PETROLATUM OINTMENT 1 APPLIC EACH EYE ×2 (08:25→21:11)
[2024-07-28] MEDS: PANTOPRAZOLE SODIUM IV 40 MG VIAL IV PUSH (08:25)
[2024-07-28] MEDS: ENOXAPARIN 40 MG/0.4 ML SYRINGE SUB-Q (08:25)
[2024-07-28] MEDS: INSULIN ASPART (*BKC) 100 UNITS/ML SUB-Q ×4 (08:25→21:10)
[2024-07-28 08:26] LABS: Glucose Point of Care 222 mg/dl (65-105)
--- NOTE | 2024-07-28 08:36 | P.PNINT_ITS ---
Progress Note: A&P Assessment and Plan (1) Acute respiratory failure with hypoxia and hypercapnia: Code(s): J96.01 - Acute respiratory failure with hypoxia; J96.02 - Acute respiratory failure with hypercapnia Status: Acute Assessment and Plan: Acute hypoxic and hypercarbic respiratory failure which appears to be secondary to status asthmaticus. Patient has history of allergic asthma and his presentation is consistent. Patient may also have mild underlying COPD considering his long history of smoking but has not been officially diagnosed. CT scan did not show any infiltrates and procalcitonin level was low suggesting against any pneumonia Currently intubated and on mechanical ventilation. Patient was heavily sedated. Patient was still asynchronous with ventilator and was given rocuronium and started on Nimbex infusion 07/27 patient's Nimbex infusion was discontinued and sedation was lowered. As the sedation wore off patient became more tachypneic with asynchrony with the ventilator. At that time patient had high peak pressures and bilateral wheezing. Patient was started back on sedation and had to BT paralyzed. 07/28 pause Nimbex infusion. Will try to wean off sedation and evaluate for weaning trial today. Hold further fluids ABG and chest x-ray reviewed Ventilator settings reviewed. Continue Solu-Medrol but decrease dose to twice daily, scheduled bronchodilators contain Claritin Hold antibiotics consult pulmonology (2) Hypertension: Qualifiers: Hypertension type: primary hypertension Qualified Code(s): I10 - Essential (primary) hypertension Code(s): I10 - Essential (primary) hypertension Status: Chronic Assessment and Plan: Patient blood pressure is now soft secondary to sedation. Hold antihypertensive medications (3) Allergic asthma: Qualifiers: Asthma severity: severe Asthma persistence: persistent Asthma complication type: with acute exacerbation Qualified Code(s): J45.51 - Severe persistent asthma with (acute) exacerbation Code(s): J45.909 - Unspecified asthma, uncomplicated Status: Acute Assessment and Plan: See above (4) COPD (chronic obstructive pulmonary disease): Qualifiers: COPD type: unspecified COPD Qualified Code(s): J44.9 - Chronic obstructive pulmonary disease, unspecified Code(s): J44.9 - Chronic obstructive pulmonary disease, unspecified Status: Acute Assessment and Plan: See above (5) Obstructive sleep apnea: Code(s): G47.33 - Obstructive sleep apnea (adult) (pediatric) Status: Acute Assessment and Plan: Currently intubated and on mechanical ventilation (6) Status asthmaticus: Code(s): J45.902 - Unspecified asthma with status asthmaticus Status: Acute Assessment and Plan: See above (7) GRACIELA (acute kidney injury): Code(s): N17.9 - Acute kidney failure, unspecified Status: Acute Assessment and Plan: patient developed GRACIELA. His creatinine yesterday was 2.18. Likely secondary to hypotension vs hypovolemia patient was given IV fluids and creatinine has improved and now normalized Normal renal ultrasound, CK was mildly elevate monitor urine output electrolytes and creatinine Patient has been on IV fluids. I will hold further IV fluids at this time Plan DVT prophylaxis -Lovenox Stress ulcer prophylaxis -Protonix Nutrition - continue Tube Feeds Code Status - Full Code I spoke to patient's in detail at bedside and updated her with patient's current status and current treatment plan. I answered all her questions. Total Critical Care Time - 30 minutes Due to a high probability of clinically significant, life threatening deterioration, the patient required my highest level of preparedness to intervene emergently and I personally spent this critical care time directly and personally managing the patient. This critical care time included obtaining a history; examining the patient; pulse oximetry; ordering and review of studies; arranging urgent treatment with development of a management plan; evaluation of patient's response to treatment; frequent reassessment; and discussions with other providers. It was exclusive of separately billable procedures and treating other patients and teaching time. Please see Assessment and Plan section and the rest of the note for further information on patient assessment and treatment Subjective Date/time seen: 07/28/24 Overnight events reviewed. Afebrile Continues to be on mechanical ventilation 40% FiO2 Overnight patient's heart rate and blood pressure is elevated patient was given additional sedation and started on Precedex infusion Continues to be sedated with propofol Precedex and fentanyl. Paralyzed with Nimbex infusion. Other Vitals acceptable Tolerating tube feed Good urine output Review of Systems Review of Systems: ROS unobtainable: Yes unobtainable due to endotracheal tube, unobtainable due to medical condition and unobtainable due to mental status Exam Narrative: General: Pt is sedated, intubated and on mechanical ventilation Lungs/Chest: Trachea central nol wheezing, Improved overall air movement, no wheezing when patient is paralyzed, Vent paralytics are off patient become a synchronous with the vent and has bilateral wheezing on exam Cardiac: RRR. Normal S1 S2. No murmurs Circulation: Pedal pulses are intact and symmetrical. Abdomen: Decreased bowel sounds. Obese. Soft. NT. ND. Extremities: No clubbing, cyanosis or edema. Warm : Garcia in place Neurologic: Unable to assess due to sedation and chemical paralysis PERRL Paralysed with nimbex Objective Data Vital Signs Vital Signs: Vital Signs - 24 hr 07/27/24 09:11 07/27/24 09:20 07/27/24 09:23 Temperature Pulse Rate 102 H 99 Respiratory Rate 32 H Blood Pressure Pulse Oximetry 91 Oxygen Delivery Mechanical Ventilation Mechanical Ventilation Fraction of Inspired Oxygen 40 40 07/27/24 09:55 07/27/24 10:00 07/27/24 10:00 Temperature Pulse Rate 90 88 Respiratory Rate 16 Blood Pressure 136/78 Pulse Oximetry 91 Oxygen Delivery Mechanical Ventilation Fraction of Inspired Oxygen 40 07/27/24 10:00 07/27/24 10:00 07/27/24 11:23 Temperature Pulse Rate 81 79 81 Respiratory Rate 18 18 Blood Pressure Pulse Oximetry 94 Oxygen Delivery Mechanical Ventilation Fraction of Inspired Oxygen 40 07/27/24 11:30 07/27/24 12:00 07/27/24 12:00 Temperature Pulse Rate 84 83 Respiratory Rate 10 L 16 Blood Pressure 137/86 Pulse Oximetry 98 Oxygen Delivery Mechanical Ventilation Fraction of Inspired Oxygen 40 40 07/27/24 12:00 07/27/24 12:00 07/27/24 12:00 Temperature 36.1 C L Pulse Rate 85 78 85 Respiratory Rate 18 18 Blood Pressure 135/65 136/71 Pulse Oximetry 84 L Oxygen Delivery Fraction of Inspired Oxygen 07/27/24 12:00 07/27/24 12:00 07/27/24 12:04 Temperature Pulse Rate 84 82 82 Respiratory Rate 18 18 18 Blood Pressure Pulse Oximetry Oxygen Delivery Fraction of Inspired Oxygen 07/27/24 12:05 07/27/24 14:00 07/27/24 14:00 Temperature 36.2 C L Pulse Rate 82 84 86 Respiratory Rate 18 18 Blood Pressure 127/65 Pulse Oximetry 94 Oxygen Delivery Fraction of Inspired Oxygen 07/27/24 14:00 07/27/24 14:00 07/27/24 14:00 Temperature 36.4 C Pulse Rate 87 89 85 Respiratory Rate 18 18 18 Blood Pressure 129/65 127/65 Pulse Oximetry 88 L Oxygen Delivery Fraction of Inspired Oxygen 07/27/24 14:00 07/27/24 14:31 07/27/24 14:34 Temperature Pulse Rate 97 87 87 Respiratory Rate 18 18 Blood Pressure Pulse Oximetry 94 Oxygen Delivery Mechanical Ventilation Fraction of Inspired Oxygen 40 07/27/24 14:57 07/27/24 15:29 07/27/24 15:30 Temperature Pulse Rate 87 104 H 90 Respiratory Rate 18 18 18 Blood Pressure 124/60 Pulse Oximetry Oxygen Delivery Fraction of Inspired Oxygen 07/27/24 16:00 07/27/24 16:00 07/27/24 16:00 Temperature 36.5 C Pulse Rate 97 87 Respiratory Rate 18 18 Blood Pressure 137/65 Pulse Oximetry 94 Oxygen Delivery Fraction of Inspired Oxygen 40 07/27/24 16:00 07/27/24 16:00 07/27/24 16:36 Temperature Pulse Rate 96 85 102 H Respiratory Rate 18 18 Blood Pressure Pulse Oximetry 93 Oxygen Delivery Mechanical Ventilation Fraction of Inspired Oxygen 40 07/27/24 17:13 07/27/24 18:00 07/27/24 18:00 Temperature Pulse Rate 111 H 97 106 H Respiratory Rate 18 Blood Pressure Pulse Oximetry 93 Oxygen Delivery Mechanical Ventilation Fraction of Inspired Oxygen 40 07/27/24 18:00 07/27/24 18:36 07/27/24 18:36 Temperature 36.4 C Pulse Rate 105 H 105 H 105 H Respiratory Rate 18 18 18 Blood Pressure 146/68 H Pulse Oximetry 95 Oxygen Delivery Fraction of Inspired Oxygen 07/27/24 20:00 07/27/24 20:00 07/27/24 20:00 Temperature Pulse Rate 98 98 Respiratory Rate 18 Blood Pressure Pulse Oximetry 93 Oxygen Delivery Mechanical Ventilation Fraction of Inspired Oxygen 40 40 07/27/24 20:00 07/27/24 20:00 07/27/24 20:00 Temperature 36.4 C Pulse Rate 99 99 99 Respiratory Rate 18 18 18 Blood Pressure 151/71 H 151/71 H Pulse Oximetry 92 Oxygen Delivery Fraction of Inspired Oxygen 07/27/24 20:08 07/27/24 20:17 07/27/24 20:23 Temperature Pulse Rate 103 H 111 H 111 H Respiratory Rate 18 18 Blood Pressure Pulse Oximetry 93 Oxygen Delivery Mechanical Ventilation Fraction of Inspired Oxygen 40 07/27/24 21:00 07/27/24 22:00 07/27/24 22:00 Temperature 36.6 C Pulse Rate 125 H 103 H 114 H Respiratory Rate 18 18 Blood Pressure 174/89 H Pulse Oximetry 93 Oxygen Delivery Fraction of Inspired Oxygen 07/27/24 22:00 07/27/24 22:00 07/27/24 22:00 Temperature Pulse Rate 114 H 114 H 112 H Respiratory Rate 18 18 18 Blood Pressure 174/89 H Pulse Oximetry Oxygen Delivery Fraction of Inspired Oxygen 07/27/24 23:00 07/27/24 23:00 07/27/24 23:12 Temperature 36.6 C Pulse Rate 94 108 H 95 Respiratory Rate 18 18 Blood Pressure 164/81 H Pulse Oximetry 94 98 Oxygen Delivery Mechanical Ventilation Fraction of Inspired Oxygen 40 07/28/24 00:00 07/28/24 00:00 07/28/24 00:00 Temperature Pulse Rate 100 100 Respiratory Rate 18 Blood Pressure Pulse Oximetry 93 Oxygen Delivery Mechanical Ventilation Fraction of Inspired Oxygen 40 40 07/28/24 00:00 07/28/24 00:00 07/28/24 00:00 Temperature 36.6 C Pulse Rate 100 97 99 Respiratory Rate 18 8 L 18 Blood Pressure 160/81 H 160/81 H Pulse Oximetry 93 Oxygen Delivery Fraction of Inspired Oxygen 07/28/24 00:00 07/28/24 01:46 07/28/24 01:48 Temperature Pulse Rate 100 109 H 106 H Respiratory Rate 18 18 Blood Pressure Pulse Oximetry 94 Oxygen Delivery Mechanical Ventilation Fraction of Inspired Oxygen 40 07/28/24 01:55 07/28/24 02:00 07/28/24 02:00 Temperature Pulse Rate 116 H 135 H 135 H Respiratory Rate 18 18 18 Blood Pressure Pulse Oximetry Oxygen Delivery Fraction of Inspired Oxygen 07/28/24 02:00 07/28/24 02:00 07/28/24 02:00 Temperature Pulse Rate 135 H 135 H 130 H Respiratory Rate 18 18 Blood Pressure Pulse Oximetry Oxygen Delivery Fraction of Inspired Oxygen 07/28/24 02:00 07/28/24 02:22 07/28/24 02:22 Temperature 36.8 C Pulse Rate 130 H 84 84 Respiratory Rate 18 18 18 Blood Pressure 203/118 H 161/80 H 161/80 H Pulse Oximetry 96 Oxygen Delivery Fraction of Inspired Oxygen 07/28/24 02:30 07/28/24 02:46 07/28/24 04:00 Temperature 36.7 C Pulse Rate 99 135 H 74 Respiratory Rate 18 18 18 Blood Pressure 161/80 H Pulse Oximetry 93 95 Oxygen Delivery Mechanical Ventilation Fraction of Inspired Oxygen 40 07/28/24 04:00 07/28/24 04:00 07/28/24 04:00 Temperature 36.8 C Pulse Rate 74 74 Respiratory Rate 18 Blood Pressure 159/77 H Pulse Oximetry 95 Oxygen Delivery Fraction of Inspired Oxygen 40 07/28/24 04:00 07/28/24 04:00 07/28/24 04:00 Temperature Pulse Rate 75 74 74 Respiratory Rate 18 18 18 Blood Pressure 167/92 H Pulse Oximetry Oxygen Delivery Fraction of Inspired Oxygen 07/28/24 04:00 07/28/24 05:30 07/28/24 06:00 Temperature Pulse Rate 74 66 88 Respiratory Rate 18 18 Blood Pressure Pulse Oximetry 94 Oxygen Delivery Mechanical Ventilation Fraction of Inspired Oxygen 40 07/28/24 06:00 07/28/24 06:00 07/28/24 06:00 Temperature Pulse Rate 88 88 91 Respiratory Rate 18 18 Blood Pressure 172/79 H Pulse Oximetry Oxygen Delivery Fraction of Inspired Oxygen 07/28/24 06:00 07/28/24 06:21 07/28/24 06:21 Temperature 36.3 C L Pulse Rate 88 88 88 Respiratory Rate 18 18 18 Blood Pressure 159/88 H Pulse Oximetry 94 Oxygen Delivery Fraction of Inspired Oxygen 07/28/24 07:51 07/28/24 07:54 07/28/24 08:00 Temperature Pulse Rate 88 87 Respiratory Rate 18 Blood Pressure Pulse Oximetry 95 95 Oxygen Delivery Mechanical Ventilation Mechanical Ventilation Fraction of Inspired Oxygen 40 40 07/28/24 08:00 07/28/24 08:00 07/28/24 08:00 Temperature Pulse Rate 88 88 88 Respiratory Rate 18 18 18 Blood Pressure 171/84 H Pulse Oximetry Oxygen Delivery Fraction of Inspired Oxygen 07/28/24 08:00 07/28/24 08:00 07/28/24 08:00 Temperature 36.1 C L Pulse Rate 88 88 Respiratory Rate 18 18 Blood Pressure 171/84 H Pulse Oximetry 95 Oxygen Delivery Fraction of Inspired Oxygen 40 07/28/24 08:00 Temperature Pulse Rate 93 Respiratory Rate 18 Blood Pressure Pulse Oximetry Oxygen Delivery Fraction of Inspired Oxygen Intake/Output Intake/Output: Intake & Output 03/26/07/26/24 07/27/24 07/28/24 23:59 23:59 23:59 23:59 Intake Total 1420.5 2178.9 2510.5 1136.7 Output Total 530 1775 950 Balance 1420.5 1648.9 735.5 186.7 Meds/Results Medications: Active Medications Generic Name Dose Route Start Last Admin Trade Name Freq PRN Reason Stop Dose Admin Acetaminophen 650 mg 07/25/24 19:51 Acetaminophen Elixir 325 Mg/10.15 Ml Udc PO Q6H PRN Mild Pain (1-3) or Fever Albuterol/Ipratropium 3 ml 07/26/24 14:00 07/28/24 07:51 Ipratropium 0.5 Mg/Albuterol Sulfate 2.5 Mg Ampul.Neb 3 Ml INHALATION 3 ml Q6HRT JOSEMANUEL Administration Atorvastatin Calcium 40 mg 07/27/24 09:00 07/28/24 08:24 Atorvastatin 40 Mg Tablet PO 40 mg DAILY JOSEMANUEL Administration Dextrose 12.5 gm 07/27/24 12:28 Dextrose 50% 25 Gm/50 Ml Syringe IV PUSH PRN PRN Hypoglycemia Protocol Enoxaparin Sodium 40 mg 07/26/24 09:00 07/28/24 08:25 Enoxaparin 40 Mg/0.4 Ml Syringe SUB-Q 40 mg DAILY JOSEMANUEL Administration Fluticasone/Umeclidinium/Vilanterol 1 puff 07/27/24 08:00 07/27/24 08:01 Fluticasone/Umeclidin/Vilanter 100-62.5-25 Mcg Ellipta INHALATION Not Given DAILYRT JOSEMANUEL Glucagon 1 mg 07/27/24 12:28 Glucagon For Inj 1 Mg Vial IM PRN PRN Hypoglycemia Protocol Glucose 15 gm 07/27/24 12:28 Glucose Oral Gel 15 Gm Of Glucse In 37.5 Gm Tube PO PRN PRN Hypoglycemia Protocol Hydralazine HCl 10 mg 07/25/24 19:41 Hydralazine Hcl 20 Mg/Ml Vial IV PUSH Q8H PRN BP greater than 180/90 Fentanyl Citrate 2,500 mcg in 250 mls @ 20 mls/hr 07/25/24 17:30 07/28/24 08:00 Fentanyl 2,500 Mcg/Ns 250 Ml IV CONT 200 mcg/hr .[id number] JOSEMANUEL 20 mls/hr Titration Protocol 200 MCG/HR Propofol 100 mls @ 14.94 mls/hr 07/25/24 23:05 07/28/24 08:00 Diprivan IV CONT 30 mcg/kg/min .Q6H42M JOSEMANUEL 14.94 mls/hr Titration Protocol 30 MCG/KG/MIN Cisatracurium Besylate 200 mg/ 100 mls @ 0 mls/hr 07/26/24 09:15 07/28/24 08:00 Sodium Chloride IV CONT 0 mcg/kg/min .Q0M JOSEMANUEL 0 mls/hr Titration Protocol 0 MCG/KG/MIN Norepinephrine Bitartrate 8 mg in 250 mls @ 9.375 mls/hr 07/26/24 14:40 07/27/24 21:17 Levophed 8 Mg/D5w 250 Ml IV CONT Not Given .Q24H JOSEMANUEL Protocol 5 MCG/MIN Dextrose 1,000 mls @ 100 mls/hr 07/27/24 12:28 Dextrose 5% 1,000 Ml IVPB PRN PRN Hypoglycemia Protocol Dexmedetomidine HCl 400 mcg in 100 mls @ 10.4 mls/hr 07/28/24 02:05 07/28/24 08:00 Precedex 400 Mcg/100 Ml IV CONT 0.5 mcg/kg/hr .Q9H37M JOSEMANUEL 10.4 mls/hr Titration Protocol 0.5 MCG/KG/HR Insulin Aspart 3 - 6 units 07/27/24 13:00 07/28/24 08:25 Insulin Aspart (*Bkc) 100 Units/Ml SUB-Q 3 units Q4HR JOSEMANUEL Administration Protocol Loratadine 10 mg 07/26/24 09:51 07/28/24 08:24 Loratadine 10 Mg Tablet FEED TUBE 10 mg QAM JOSEMANUEL Administration Methylprednisolone Sodium Succinate 60 mg 07/26/24 18:00 07/28/24 02:45 Methylprednisolone Sod Succ 125 Mg Vial IV PUSH 60 mg Q8H JOSEMANUEL Administration Montelukast Sodium 10 mg 07/26/24 21:00 07/27/24 21:32 Montelukast Sodium 10 Mg Tablet PO 10 mg QHS JOSEMANUEL Administration Multi-Ingred Cream/Lotion/Oil/Oint 1 applic 07/26/24 21:00 07/28/24 08:25 Mineral Oil/White Petrolatum Ointment EACH EYE 1 applic Q12HR JOSEMANUEL Administration Pantoprazole Sodium 40 mg 07/26/24 09:55 07/28/24 08:25 Pantoprazole Sodium Iv 40 Mg Vial IV PUSH 40 mg QAM JOSEMANUEL Administration Sodium Chloride 20 ml 07/26/24 10:36 Central Line Flush IV PUSH PRN PRN after blood draws Sodium Chloride 10 ml 07/26/24 10:36 Central Line Flush IV PUSH PRN PRN with TPN bag changes Sodium Chloride 10 ml 07/26/24 14:00 07/28/24 08:10 Central Line Flush IV PUSH 10 ml Q8HR JOSEMANUEL Administration Radiology Results: ITS Impressions Abdomen X-Ray 07/25/24 16:47 IMPRESSION: 1. Endotracheal tube tip 1 cm above the jose. 2. No acute cardiopulmonary disease. 3. Nasogastric tube extends into the stomach with distal tip projecting near the level of the gastroesophageal junction. Unclear with only AP projections tube extends back into the gastroesophageal junction were positioned more anteriorly in the body but superimposed over the gastroesophageal junction. Consider obtaining an oblique or crosstable lateral view for more definitive det ermination. Chest CT 07/25/24 17:51 IMPRESSION: 1. Minimal bilateral basal atelectasis with minimal effusion. 2. Endotracheal tube with the tip at the jose. Retraction by 2 to 3 cm is advised. 3. Left kidney stone. Chest X-Ray 07/26/24 10:28 IMPRESSION: 1. Lines and tubes in expected position as detailed above with left PICC line tip at the superior cavoatrial junction on the final image. 2. No acute cardiopulmonary disease. Renal Ultrasound 07/27/24 14:10 IMPRESSION: 1. Normal kidneys without hydronephrosis. Labs Labs: Laboratory Results - last 24 hr 07/27/24 07/27/24 07/27/24 05:37 09:30 11:52 Puncture Site ABG pH ABG pCO2 ABG pO2 ABG PO2/FiO2 Ratio ABG HCO3 ABG O2 Saturation ABG O2 Content ABG Base Excess A-a Gradient Oxyhemoglobin Total Hemoglobin O2 Delivery Device O2 Liters/Min Minute Volume Vent Rate Vent Mode FiO2 Tidal Volume PEEP Peak Inspir Pressure Pressure Support Sodium Potassium Chloride Carbon Dioxide Anion Gap BUN Creatinine Estim Creat Clear Calc Estimated GFR Glucose POC Capillary Glucose 207 H Calcium Phosphorus Magnesium Total Bilirubin AST ALT Alkaline Phosphatase Total Creatine Kinase 395 H Total Protein Albumin Triglycerides Ur Random Sodium 27 Urine Creatinine 104.8 07/27/24 07/28/24 07/28/24 21:21 05:02 06:42 Puncture Site Right radial ABG pH 7.417 ABG pCO2 44.6 ABG pO2 70.6 L ABG PO2/FiO2 Ratio 1.76 ABG HCO3 28.1 H ABG O2 Saturation 94.4 L ABG O2 Content 19.0 ABG Base Excess 3.0 A-a Gradient 163.3 Oxyhemoglobin 93.7 Total Hemoglobin 14.4 O2 Delivery Device Ventilator O2 Liters/Min Not Reportable Minute Volume Not Reportable Vent Rate 18 Vent Mode Cmv FiO2 40 Tidal Volume 450 PEEP 8 Peak Inspir Pressure Not Reportable Pressure Support Not Reportable Sodium 139 Potassium 4.5 Chloride 104 Carbon Dioxide 29 Anion Gap 6 BUN 31 H Creatinine 1.02 Estim Creat Clear Calc 65 Estimated GFR > 60 Glucose 199 H POC Capillary Glucose 164 H Calcium 8.6 Phosphorus 3.7 Magnesium 2.5 H Total Bilirubin 0.4 AST 23 ALT 28 Alkaline Phosphatase 112 Total Creatine Kinase Total Protein 6.0 L Albumin 3.8 Triglycerides 148 Ur Random Sodium Urine Creatinine 07/28/24 08:23 Puncture Site ABG pH ABG pCO2 ABG pO2 ABG PO2/FiO2 Ratio ABG HCO3 ABG O2 Saturation ABG O2 Content ABG Base Excess A-a Gradient Oxyhemoglobin Total Hemoglobin O2 Delivery Device O2 Liters/Min Minute Volume Vent Rate Vent Mode FiO2 Tidal Volume PEEP Peak Inspir Pressure Pressure Support Sodium Potassium Chloride Carbon Dioxide Anion Gap BUN Creatinine Estim Creat Clear Calc Estimated GFR Glucose POC Capillary Glucose 222 H Calcium Phosphorus Magnesium Total Bilirubin AST ALT Alkaline Phosphatase Total Creatine Kinase Total Protein Albumin Triglycerides Ur Random Sodium Urine Creatinine Quality VTE Prophylaxis VTE prophylaxis: pharmacologic ordered
[2024-07-28] MEDS: dexmedeTOMIDine 400 MCG/100 ML 400 MCG/100 ML BAG 24.96 MCG IV CONT ×2 (09:56→13:35)
[2024-07-28] MEDS: PROPOFOL IV EMULSION 100 ML 24.9 MG IV CONT ×4 (10:25→22:00)
[2024-07-28 12:12] LABS: Glucose Point of Care 218 mg/dl (65-105)
--- NOTE | 2024-07-28 12:54 | PM.PNPUL ---
Progress Note: A&P Assessment and Plan (1) Status asthmaticus: Code(s): J45.902 - Unspecified asthma with status asthmaticus Status: Acute Assessment and Plan: This 68-year-old man, with normal pulmonary function testing measured 4 months ago, had had frequent coughing and wheezing, with three previous hospitalizations for obstructive airway disease over the last few months. He presented with a several-day history of progressively increasing shortness of breath and coughing. The patient?s clinical history of obstructive airway disease, combined with diagnostic studies showing eosinophilia and significant improvement with oral steroid regimens following each hospitalization, suggests uncontrolled eosinophilic asthma. The current presentation is typical for status asthmaticus, as the patient exhibited respiratory alkalosis, did not respond to bronchodilators administered in the ER, and progressed to metabolic and respiratory acidosis. Following intubation, the patient was fully sedated and paralyzed due to difficulties encountered by the reconciliation accountant in ventilating him. Yesterday, a review of respiratory mechanics while the patient was passively ventilated showed a total respiratory resistance of 20 cm/L/sec, which is mildly elevated, and an expiratory time constant of 0.64 seconds, which is in the normal range. There was no auto PEEP. His chest CT shows mild atelectasis at the bases posteriorly and small pleural effusions, with no evidence of lower respiratory tract infection. Over the last 24 hours, the patient's respiratory status has remained stable while being fully sedated and paralyzed on mechanical ventilation. Early this morning, sedation and paralytic medications were temporarily discontinued to evaluate the potential for a weaning trial. During the morning examination, the patient's lungs were clear anteriorly. Upon re-evaluation in the early afternoon, the RN indicated that the patient needed to be placed back on sedation as the weaning trial could not proceed. No chest X-ray is available today. It appears that the patient's bronchospasm has significantly improved. I agree with reducing IV steroids to 60 mg twice daily and anticipate a further weaning trial in the morning. I will continue to follow the patient along with you. (2) Acute respiratory failure with hypoxia and hypercapnia: Code(s): J96.01 - Acute respiratory failure with hypoxia; J96.02 - Acute respiratory failure with hypercapnia Status: Acute (3) Obstructive sleep apnea: Code(s): G47.33 - Obstructive sleep apnea (adult) (pediatric) Status: Acute (4) Personal history of tobacco use: Code(s): Z87.891 - Personal history of nicotine dependence Status: Acute Subjective Date/time seen: 07/28/24 12:54 Interval history: Patient was seen early the morning when his sedative medications were discontinued and the patient was about to go on weaning trial. No new respiratory events over the last 24 hours while the patient was still on sedative paralyzing medications. He has been hemodynamically stable and has been afebrile. Review of Systems Review of Systems: All systems reviewed & are unremarkable except as noted in HPI and below ROS unobtainable: Yes unobtainable due to medical condition Exam Narrative: GENERAL APPEARANCE: Well developed, well nourished, sedated but opening eyes to commands while still on ventilator SKIN: Inspection of the skin reveals no rashes, ulcerations or petechiae. HEENT: Sclerae anicteric and conjunctivae pink and moist. NECK: Supple. There was no thyroid enlargement, and no tenderness, or masses were felt. CHEST: Normal AP diameter and normal contour without any kyphoscoliosis. LUNGS: Clear breath sounds anteriorly CARDIAC: There was a regular rate and rhythm without any murmurs, gallops, rubs. ABDOMEN: Soft and nontender with normal bowel sounds. There was no organomegaly. LYMPH NODES: No lymphadenopathy was appreciated in the neck.. EXTREMITIES: No cyanosis, clubbing or edema. NEUROLOGIC: Opening eyes and answering simple questions by nodding head. Objective Data Vital Signs Vital Signs: Vital Signs - 24 hr 07/27/24 14:00 07/27/24 14:00 07/27/24 14:00 Temperature 36.2 C L 36.4 C Pulse Rate 84 86 87 Respiratory Rate 18 18 Blood Pressure 127/65 129/65 Pulse Oximetry 94 88 L Oxygen Delivery Fraction of Inspired Oxygen 07/27/24 14:00 07/27/24 14:00 07/27/24 14:00 Temperature Pulse Rate 89 85 97 Respiratory Rate 18 18 18 Blood Pressure 127/65 Pulse Oximetry Oxygen Delivery Fraction of Inspired Oxygen 07/27/24 14:31 07/27/24 14:34 07/27/24 14:57 Temperature Pulse Rate 87 87 87 Respiratory Rate 18 18 Blood Pressure Pulse Oximetry 94 Oxygen Delivery Mechanical Ventilation Fraction of Inspired Oxygen 40 07/27/24 15:29 07/27/24 15:30 07/27/24 16:00 Temperature 36.5 C Pulse Rate 104 H 90 97 Respiratory Rate 18 18 18 Blood Pressure 124/60 137/65 Pulse Oximetry 94 Oxygen Delivery Fraction of Inspired Oxygen 07/27/24 16:00 07/27/24 16:00 07/27/24 16:00 Temperature Pulse Rate 87 96 Respiratory Rate 18 18 Blood Pressure Pulse Oximetry 93 Oxygen Delivery Mechanical Ventilation Fraction of Inspired Oxygen 40 40 07/27/24 16:00 07/27/24 16:36 07/27/24 17:13 Temperature Pulse Rate 85 102 H 111 H Respiratory Rate 18 Blood Pressure Pulse Oximetry 93 Oxygen Delivery Mechanical Ventilation Fraction of Inspired Oxygen 40 07/27/24 18:00 07/27/24 18:00 07/27/24 18:00 Temperature 36.4 C Pulse Rate 97 106 H 105 H Respiratory Rate 18 18 Blood Pressure 146/68 H Pulse Oximetry 95 Oxygen Delivery Fraction of Inspired Oxygen 07/27/24 18:36 07/27/24 18:36 07/27/24 20:00 Temperature Pulse Rate 105 H 105 H 98 Respiratory Rate 18 18 18 Blood Pressure Pulse Oximetry 93 Oxygen Delivery Mechanical Ventilation Fraction of Inspired Oxygen 40 07/27/24 20:00 07/27/24 20:00 07/27/24 20:00 Temperature 36.4 C Pulse Rate 98 99 Respiratory Rate 18 Blood Pressure 151/71 H Pulse Oximetry 92 Oxygen Delivery Fraction of Inspired Oxygen 40 07/27/24 20:00 07/27/24 20:00 07/27/24 20:08 Temperature Pulse Rate 99 99 103 H Respiratory Rate 18 18 18 Blood Pressure 151/71 H Pulse Oximetry Oxygen Delivery Fraction of Inspired Oxygen 07/27/24 20:17 07/27/24 20:23 07/27/24 21:00 Temperature Pulse Rate 111 H 111 H 125 H Respiratory Rate 18 18 Blood Pressure Pulse Oximetry 93 Oxygen Delivery Mechanical Ventilation Fraction of Inspired Oxygen 40 07/27/24 22:00 07/27/24 22:00 07/27/24 22:00 Temperature 36.6 C Pulse Rate 103 H 114 H 114 H Respiratory Rate 18 18 Blood Pressure 174/89 H Pulse Oximetry 93 Oxygen Delivery Fraction of Inspired Oxygen 07/27/24 22:00 07/27/24 22:00 07/27/24 23:00 Temperature 36.6 C Pulse Rate 114 H 112 H 94 Respiratory Rate 18 18 18 Blood Pressure 174/89 H 164/81 H Pulse Oximetry 94 Oxygen Delivery Fraction of Inspired Oxygen 07/27/24 23:00 07/27/24 23:12 07/28/24 00:00 Temperature Pulse Rate 108 H 95 100 Respiratory Rate 18 18 Blood Pressure Pulse Oximetry 98 93 Oxygen Delivery Mechanical Ventilation Mechanical Ventilation Fraction of Inspired Oxygen 40 40 07/28/24 00:00 07/28/24 00:00 07/28/24 00:00 Temperature 36.6 C Pulse Rate 100 100 Respiratory Rate 18 Blood Pressure 160/81 H Pulse Oximetry 93 Oxygen Delivery Fraction of Inspired Oxygen 40 07/28/24 00:00 07/28/24 00:00 07/28/24 00:00 Temperature Pulse Rate 97 99 100 Respiratory Rate 8 L 18 18 Blood Pressure 160/81 H Pulse Oximetry Oxygen Delivery Fraction of Inspired Oxygen 07/28/24 01:46 07/28/24 01:48 07/28/24 01:55 Temperature Pulse Rate 109 H 106 H 116 H Respiratory Rate 18 18 Blood Pressure Pulse Oximetry 94 Oxygen Delivery Mechanical Ventilation Fraction of Inspired Oxygen 40 07/28/24 02:00 07/28/24 02:00 07/28/24 02:00 Temperature Pulse Rate 135 H 135 H 135 H Respiratory Rate 18 18 18 Blood Pressure Pulse Oximetry Oxygen Delivery Fraction of Inspired Oxygen 07/28/24 02:00 07/28/24 02:00 07/28/24 02:00 Temperature 36.8 C Pulse Rate 135 H 130 H 130 H Respiratory Rate 18 18 Blood Pressure 203/118 H Pulse Oximetry 96 Oxygen Delivery Fraction of Inspired Oxygen 07/28/24 02:22 07/28/24 02:22 07/28/24 02:30 Temperature 36.7 C Pulse Rate 84 84 99 Respiratory Rate 18 18 18 Blood Pressure 161/80 H 161/80 H 161/80 H Pulse Oximetry 93 Oxygen Delivery Fraction of Inspired Oxygen 07/28/24 02:46 07/28/24 04:00 07/28/24 04:00 Temperature Pulse Rate 135 H 74 74 Respiratory Rate 18 18 Blood Pressure Pulse Oximetry 95 Oxygen Delivery Mechanical Ventilation Fraction of Inspired Oxygen 40 07/28/24 04:00 07/28/24 04:00 07/28/24 04:00 Temperature 36.8 C Pulse Rate 74 75 Respiratory Rate 18 18 Blood Pressure 159/77 H Pulse Oximetry 95 Oxygen Delivery Fraction of Inspired Oxygen 40 07/28/24 04:00 07/28/24 04:00 07/28/24 04:00 Temperature Pulse Rate 74 74 74 Respiratory Rate 18 18 18 Blood Pressure 167/92 H Pulse Oximetry Oxygen Delivery Fraction of Inspired Oxygen 07/28/24 05:30 07/28/24 06:00 07/28/24 06:00 Temperature Pulse Rate 66 88 88 Respiratory Rate 18 18 Blood Pressure Pulse Oximetry 94 Oxygen Delivery Mechanical Ventilation Fraction of Inspired Oxygen 40 07/28/24 06:00 07/28/24 06:00 07/28/24 06:00 Temperature 36.3 C L Pulse Rate 88 91 88 Respiratory Rate 18 18 Blood Pressure 172/79 H 159/88 H Pulse Oximetry 94 Oxygen Delivery Fraction of Inspired Oxygen 07/28/24 06:21 07/28/24 06:21 07/28/24 07:51 Temperature Pulse Rate 88 88 88 Respiratory Rate 18 18 18 Blood Pressure Pulse Oximetry Oxygen Delivery Fraction of Inspired Oxygen 07/28/24 07:54 07/28/24 08:00 07/28/24 08:00 Temperature Pulse Rate 87 88 Respiratory Rate 18 Blood Pressure Pulse Oximetry 95 95 Oxygen Delivery Mechanical Ventilation Mechanical Ventilation Fraction of Inspired Oxygen 40 40 07/28/24 08:00 07/28/24 08:00 07/28/24 08:00 Temperature Pulse Rate 88 88 88 Respiratory Rate 18 18 18 Blood Pressure 171/84 H Pulse Oximetry Oxygen Delivery Fraction of Inspired Oxygen 07/28/24 08:00 07/28/24 08:00 07/28/24 08:00 Temperature 36.1 C L Pulse Rate 88 89 Respiratory Rate 18 Blood Pressure 171/84 H Pulse Oximetry 95 Oxygen Delivery Fraction of Inspired Oxygen 40 07/28/24 08:00 07/28/24 08:58 07/28/24 09:10 Temperature Pulse Rate 93 112 H 125 H Respiratory Rate 18 20 20 Blood Pressure Pulse Oximetry Oxygen Delivery Fraction of Inspired Oxygen 07/28/24 09:15 07/28/24 09:29 07/28/24 09:36 Temperature Pulse Rate 114 H 111 H 114 H Respiratory Rate 20 26 H 26 H Blood Pressure Pulse Oximetry Oxygen Delivery Fraction of Inspired Oxygen 07/28/24 09:40 07/28/24 09:50 07/28/24 09:56 Temperature Pulse Rate 120 H 120 H 98 Respiratory Rate 26 H 30 H 26 H Blood Pressure Pulse Oximetry Oxygen Delivery Fraction of Inspired Oxygen 07/28/24 09:56 07/28/24 10:00 07/28/24 10:00 Temperature 36.7 C Pulse Rate 98 87 87 Respiratory Rate 26 H 22 H Blood Pressure 136/74 Pulse Oximetry 90 Oxygen Delivery Fraction of Inspired Oxygen 07/28/24 10:25 07/28/24 10:25 07/28/24 11:52 Temperature Pulse Rate 68 68 66 Respiratory Rate 20 20 Blood Pressure Pulse Oximetry 96 Oxygen Delivery Mechanical Ventilation Fraction of Inspired Oxygen 50 07/28/24 12:00 07/28/24 12:00 07/28/24 12:00 Temperature 36.9 C Pulse Rate 67 63 Respiratory Rate 18 Blood Pressure 176/83 H Pulse Oximetry 96 Oxygen Delivery Fraction of Inspired Oxygen 50 07/28/24 12:00 07/28/24 12:00 07/28/24 12:00 Temperature Pulse Rate 67 67 Respiratory Rate 18 18 Blood Pressure Pulse Oximetry 96 Oxygen Delivery Mechanical Ventilation Fraction of Inspired Oxygen 50 Intake/Output Intake/Output: Intake & Output 07/25/24 07/26/24 07/27/24 07/28/24 23:59 23:59 23:59 23:59 Intake Total 1420.5 2178.9 2510.5 1317.9 Output Total 530 1775 950 Balance 1420.5 1648.9 735.5 367.9 Meds/Results Medications: Active Medications Generic Name Dose Route Start Last Admin Trade Name Freq PRN Reason Stop Dose Admin Acetaminophen 650 mg 07/25/24 19:51 Acetaminophen Elixir 325 Mg/10.15 Ml Udc PO Q6H PRN Mild Pain (1-3) or Fever Albuterol/Ipratropium 3 ml 07/26/24 14:00 07/28/24 07:51 Ipratropium 0.5 Mg/Albuterol Sulfate 2.5 Mg Ampul.Neb 3 Ml INHALATION 3 ml Q6HRT JOSEMANUEL Administration Atorvastatin Calcium 40 mg 07/27/24 09:00 07/28/24 08:24 Atorvastatin 40 Mg Tablet PO 40 mg DAILY JOSEMANUEL Administration Dextrose 12.5 gm 07/27/24 12:28 Dextrose 50% 25 Gm/50 Ml Syringe IV PUSH PRN PRN Hypoglycemia Protocol Enoxaparin Sodium 40 mg 07/26/24 09:00 07/28/24 08:25 Enoxaparin 40 Mg/0.4 Ml Syringe SUB-Q 40 mg DAILY JOSEMANUEL Administration Fluticasone/Umeclidinium/Vilanterol 1 puff 07/27/24 08:00 07/28/24 08:45 Fluticasone/Umeclidin/Vilanter 100-62.5-25 Mcg Ellipta INHALATION Not Given DAILYRT JOSEMANUEL Glucagon 1 mg 07/27/24 12:28 Glucagon For Inj 1 Mg Vial IM PRN PRN Hypoglycemia Protocol Glucose 15 gm 07/27/24 12:28 Glucose Oral Gel 15 Gm Of Glucse In 37.5 Gm Tube PO PRN PRN Hypoglycemia Protocol Hydralazine HCl 10 mg 07/25/24 19:41 Hydralazine Hcl 20 Mg/Ml Vial IV PUSH Q8H PRN BP greater than 180/90 Fentanyl Citrate 2,500 mcg in 250 mls @ 0 mls/hr 07/25/24 17:30 07/28/24 08:58 Fentanyl 2,500 Mcg/Ns 250 Ml IV CONT 0 mcg/hr .Q0M JOSEMANUEL 0 mls/hr Titration Protocol Propofol 100 mls @ 24.9 mls/hr 07/25/24 23:05 07/28/24 12:00 Diprivan IV CONT 50 mcg/kg/min .Q4H1M JOSEMANUEL 24.9 mls/hr Titration Protocol 50 MCG/KG/MIN Cisatracurium Besylate 200 mg/ 100 mls @ 0 mls/hr 07/26/24 09:15 07/28/24 08:00 Sodium Chloride IV CONT 0 mcg/kg/min .Q0M JOSEMANUEL 0 mls/hr Titration Protocol 0 MCG/KG/MIN Norepinephrine Bitartrate 8 mg in 250 mls @ 9.375 mls/hr 07/26/24 14:40 07/27/24 21:17 Levophed 8 Mg/D5w 250 Ml IV CONT Not Given .Q24H JOSEMANUEL Protocol 5 MCG/MIN Dextrose 1,000 mls @ 100 mls/hr 07/27/24 12:28 Dextrose 5% 1,000 Ml IVPB PRN PRN Hypoglycemia Protocol Dexmedetomidine HCl 400 mcg in 100 mls @ 24.96 mls/hr 07/28/24 02:05 07/28/24 12:00 Precedex 400 Mcg/100 Ml IV CONT 1.2 mcg/kg/hr .Q4H1M JOSEMANUEL 24.96 mls/hr Titration Protocol 1.2 MCG/KG/HR Insulin Aspart 3 - 6 units 07/27/24 13:00 07/28/24 12:14 Insulin Aspart (*Bkc) 100 Units/Ml SUB-Q 3 units Q4HR JOSEMANUEL Administration Protocol Loratadine 10 mg 07/26/24 09:51 07/28/24 08:24 Loratadine 10 Mg Tablet FEED TUBE 10 mg QAM JOSEMANUEL Administration Methylprednisolone Sodium Succinate 60 mg 07/28/24 09:00 07/28/24 08:50 Methylprednisolone Sod Succ 125 Mg Vial IV PUSH 60 mg Q12H JOSEMANUEL Administration Montelukast Sodium 10 mg 07/26/24 21:00 07/27/24 21:32 Montelukast Sodium 10 Mg Tablet PO 10 mg QHS JOSEMANUEL Administration Multi-Ingred Cream/Lotion/Oil/Oint 1 applic 07/26/24 21:00 07/28/24 08:25 Mineral Oil/White Petrolatum Ointment EACH EYE 1 applic Q12HR JOSEMANUEL Administration Pantoprazole Sodium 40 mg 07/26/24 09:55 07/28/24 08:25 Pantoprazole Sodium Iv 40 Mg Vial IV PUSH 40 mg QAM JOSEMANUEL Administration Sodium Chloride 20 ml 07/26/24 10:36 Central Line Flush IV PUSH PRN PRN after blood draws Sodium Chloride 10 ml 07/26/24 10:36 Central Line Flush IV PUSH PRN PRN with TPN bag changes Sodium Chloride 10 ml 07/26/24 14:00 07/28/24 08:10 Central Line Flush IV PUSH 10 ml Q8HR JOSEMANUEL Administration Radiology Results: ITS Impressions Abdomen X-Ray 07/25/24 16:47 IMPRESSION: 1. Endotracheal tube tip 1 cm above the jose. 2. No acute cardiopulmonary disease. 3. Nasogastric tube extends into the stomach with distal tip projecting near the level of the gastroesophageal junction. Unclear with only AP projections tube extends back into the gastroesophageal junction were positioned more anteriorly in the body but superimposed over the gastroesophageal junction. Consider obtaining an oblique or crosstable lateral view for more definitive determination. Chest CT 07/25/24 17:51 IMPRESSION: 1. Minimal bilateral basal atelectasis with minimal effusion. 2. Endotracheal tube with the tip at the jose. Retraction by 2 to 3 cm is advised. 3. Left kidney stone. Chest X-Ray 07/26/24 10:28 IMPRESSION: 1. Lines and tubes in expected position as detailed above with left PICC line tip at the superior cavoatrial junction on the final image. 2. No acute cardiopulmonary disease. Renal Ultrasound 07/27/24 14:10 IMPRESSION: 1. Normal kidneys without hydronephrosis. Labs Labs: Laboratory Results - last 24 hr 07/27/24 07/28/24 07/28/24 21:21 05:02 06:42 WBC 16.2 H RBC 4.36 L Hgb 13.6 L Hct 41.0 L MCV 94.0 MCH 31.2 MCHC 33.2 RDW 13.3 Plt Count 253 MPV 9.4 Immature Gran % (Auto) 0.7 H Neut % (Auto) 92.8 H Lymph % (Auto) 3.4 L [place] % (Auto) 3.0 Eos % (Auto) 0.0 Baso % (Auto) 0.1 L Lymph # (Auto) 0.55 L [place] # (Auto) 0.5 Eos # (Auto) 0.0 Baso # (Auto) 0.0 Abs Immat Gran (auto) 0.12 H Absolute Neuts (auto) 15.0 H Absolute Nucleated RBC 0.000 Nucleated RBC % 0.0 Puncture Site Right radial ABG pH 7.417 ABG pCO2 44.6 ABG pO2 70.6 L ABG PO2/FiO2 Ratio 1.76 ABG HCO3 28.1 H ABG O2 Saturation 94.4 L ABG O2 Content 19.0 ABG Base Excess 3.0 A-a Gradient 163.3 Oxyhemoglobin 93.7 Total Hemoglobin 14.4 O2 Delivery Device Ventilator O2 Liters/Min Not Reportable Minute Volume Not Reportable Vent Rate 18 Vent Mode Cmv FiO2 40 Tidal Volume 450 PEEP 8 Peak Inspir Pressure Not Reportable Pressure Support Not Reportable Sodium 139 Potassium 4.5 Chloride 104 Carbon Dioxide 29 Anion Gap 6 BUN 31 H Creatinine 1.02 Estim Creat Clear Calc 65 Estimated GFR > 60 Glucose 199 H POC Capillary Glucose 164 H Calcium 8.6 Phosphorus 3.7 Magnesium 2.5 H Total Bilirubin 0.4 AST 23 ALT 28 Alkaline Phosphatase 112 Total Protein 6.0 L Albumin 3.8 Triglycerides 148 07/28/24 07/28/24 08:23 12:09 WBC RBC Hgb Hct MCV MCH MCHC RDW Plt Count MPV Immature Gran % (Auto) Neut % (Auto) Lymph % (Auto) [place] % (Auto) Eos % (Auto) Baso % (Auto) Lymph # (Auto) [place] # (Auto) Eos # (Auto) Baso # (Auto) Abs Immat Gran (auto) Absolute Neuts (auto) Absolute Nucleated RBC Nucleated RBC % Puncture Site ABG pH ABG pCO2 ABG pO2 ABG PO2/FiO2 Ratio ABG HCO3 ABG O2 Saturation ABG O2 Content ABG Base Excess A-a Gradient Oxyhemoglobin Total Hemoglobin O2 Delivery Device O2 Liters/Min Minute Volume Vent Rate Vent Mode FiO2 Tidal Volume PEEP Peak Inspir Pressure Pressure Support Sodium Potassium Chloride Carbon Dioxide Anion Gap BUN Creatinine Estim Creat Clear Calc Estimated GFR Glucose POC Capillary Glucose 222 H 218 H Calcium Phosphorus Magnesium Total Bilirubin AST ALT Alkaline Phosphatase Total Protein Albumin Triglycerides
--- NOTE | 2024-07-28 16:04 | P.PNIM_ITS ---
Progress Note: A&P Assessment and Plan (1) Acute respiratory failure with hypoxia and hypercapnia: Code(s): J96.01 - Acute respiratory failure with hypoxia; J96.02 - Acute respiratory failure with hypercapnia Status: Acute Assessment and Plan: Acute hypoxic and hypercarbic respiratory failure which appears to be secondary to status asthmaticus. Patient has history of allergic asthma and his presentation is consistent. Patient may also have mild underlying COPD considering his long history of smoking but has not been officially diagnosed. CT scan did not show any infiltrates and procalcitonin level was low suggesting against any pneumonia Currently intubated and on mechanical ventilation. Patient was heavily sedated. Patient was still asynchronous with ventilator and was given rocuronium and started on Nimbex infusion 07/27 patient's Nimbex infusion was discontinued and sedation was lowered. As the sedation wore off patient became more tachypneic with asynchrony with the ventilator. At that time patient had high peak pressures and bilateral wheezing. Patient was started back on sedation and had to BT paralyzed. 07/28 pause Nimbex infusion. Will try to wean off sedation and evaluate for weaning trial today. Hold further fluids ABG and chest x-ray reviewed Ventilator settings reviewed. Continue Solu-Medrol but decrease dose to twice daily, scheduled bronchodilators contain Claritin Hold antibiotics consult pulmonology (2) Hypertension: Qualifiers: Hypertension type: primary hypertension Qualified Code(s): I10 - Essential (primary) hypertension Code(s): I10 - Essential (primary) hypertension Status: Chronic Assessment and Plan: Patient blood pressure is now soft secondary to sedation. Hold antihypertensive medications (3) Allergic asthma: Qualifiers: Asthma severity: severe Asthma persistence: persistent Asthma complication type: with acute exacerbation Qualified Code(s): J45.51 - Severe persistent asthma with (acute) exacerbation Code(s): J45.909 - Unspecified asthma, uncomplicated Status: Acute Assessment and Plan: See above (4) COPD (chronic obstructive pulmonary disease): Qualifiers: COPD type: unspecified COPD Qualified Code(s): J44.9 - Chronic obstructive pulmonary disease, unspecified Code(s): J44.9 - Chronic obstructive pulmonary disease, unspecified Status: Acute Assessment and Plan: See above (5) Obstructive sleep apnea: Code(s): G47.33 - Obstructive sleep apnea (adult) (pediatric) Status: Acute Assessment and Plan: Currently intubated and on mechanical ventilation (6) Status asthmaticus: Code(s): J45.902 - Unspecified asthma with status asthmaticus Status: Acute Assessment and Plan: See above (7) GRACIELA (acute kidney injury): Code(s): N17.9 - Acute kidney failure, unspecified Status: Acute Assessment and Plan: patient developed GRACIELA. His creatinine yesterday was 2.18. Likely secondary to hypotension vs hypovolemia patient was given IV fluids and creatinine has improved and now normalized Normal renal ultrasound, CK was mildly elevate monitor urine output electrolytes and creatinine Patient has been on IV fluids. I will hold further IV fluids at this time Subjective Date/time seen: 07/28/24 16:04 Interval history: Remains intubated and management as per ICU. Review of Systems Review of Systems: All systems reviewed & are unremarkable except as noted in HPI and below ROS unobtainable: Yes unobtainable due to endotracheal tube, unobtainable due to medical condition and unobtainable due to mental status Exam Narrative: General: Pt is sedated, intubated and on mechanical ventilation Lungs/Chest: Trachea central nol wheezing, Improved overall air movement, no wheezing when patient is paralyzed, Vent paralytics are off patient become a synchronous with the vent and has bilateral wheezing on exam Cardiac: RRR. Normal S1 S2. No murmurs Circulation: Pedal pulses are intact and symmetrical. Abdomen: Decreased bowel sounds. Obese. Soft. NT. ND. Extremities: No clubbing, cyanosis or edema. Warm : Garcia in place Neurologic: Unable to assess due to sedation and chemical paralysis PERRL Paralysed with nimbex Const: General: in distress and uncomfortable Other: , male, ill-appearing, significant respiratory distress HENMT: Face/Nose/Sinus: Normal nares present Mouth: Yes dry mucous membranes Eyes: General: appearance normal, both eyes and all related structures Sclera: sclerae normal Pupils: Equal, round and reactive pupils present EOM: EOMs intact bilaterally Resp: Other: BiPAP in place, tolerating okay. Intermittent coughing requiring removal of BiPAP mask. Significant tachypnea with subcostal retractions. Minimal air movement in all lung koch with faint consistent expiratory wheeze. No crackles or rhonchi. Cardio: Rate: tachycardic Rhythm: regular rhythm Other: S1-S2 present without murmur, rub, ectopy GI: Other: Abdomen soft, nondistended, nontender. Normoactive bowel sounds in all quadrants. Skin: General skin exam: normal color and no rashes or lesions noted Wounds: no wounds Neuro: Cranial nerves: Yes Equal, round and reactive pupils present Speech: normal speech Motor exam (neuro): 5/5 motor strength present throughout Se nsory Exam: normal sensation Other: A&O x4. However somnolent/fatigued. Extrem: General: normal to inspection Psych: Mental Status: mental status grossly normal Affect: normal affect Other: Good insight and judgment, pleasant Objective Data Vital Signs Vital Signs: Vital Signs - 24 hr 07/27/24 16:36 07/27/24 17:13 07/27/24 18:00 Temperature Pulse Rate 102 H 111 H 97 Respiratory Rate 18 18 Blood Pressure Pulse Oximetry 93 Oxygen Delivery Mechanical Ventilation Fraction of Inspired Oxygen 40 07/27/24 18:00 07/27/24 18:00 07/27/24 18:36 Temperature 97.6 F Pulse Rate 106 H 105 H 105 H Respiratory Rate 18 18 Blood Pressure 146/68 H Pulse Oximetry 95 Oxygen Delivery Fraction of Inspired Oxygen 07/27/24 18:36 07/27/24 20:00 07/27/24 20:00 Temperature Pulse Rate 105 H 98 98 Respiratory Rate 18 18 Blood Pressure Pulse Oximetry 93 Oxygen Delivery Mechanical Ventilation Fraction of Inspired Oxygen 40 07/27/24 20:00 07/27/24 20:00 07/27/24 20:00 Temperature 97.6 F Pulse Rate 99 99 Respiratory Rate 18 18 Blood Pressure 151/71 H 151/71 H Pulse Oximetry 92 Oxygen Delivery Fraction of Inspired Oxygen 40 07/27/24 20:00 07/27/24 20:08 07/27/24 20:17 Temperature Pulse Rate 99 103 H 111 H Respiratory Rate 18 18 18 Blood Pressure Pulse Oximetry Oxygen Delivery Fraction of Inspired Oxygen 07/27/24 20:23 07/27/24 21:00 07/27/24 22:00 Temperature Pulse Rate 111 H 125 H 103 H Respiratory Rate 18 Blood Pressure Pulse Oximetry 93 Oxygen Delivery Mechanical Ventilation Fraction of Inspired Oxygen 40 07/27/24 22:00 07/27/24 22:00 07/27/24 22:00 Temperature 97.8 F Pulse Rate 114 H 114 H 114 H Respiratory Rate 18 18 18 Blood Pressure 174/89 H 174/89 H Pulse Oximetry 93 Oxygen Delivery Fraction of Inspired Oxygen 07/27/24 22:00 07/27/24 23:00 07/27/24 23:00 Temperature 97.8 F Pulse Rate 112 H 94 108 H Respiratory Rate 18 18 18 Blood Pressure 164/81 H Pulse Oximetry 94 Oxygen Delivery Fraction of Inspired Oxygen 07/27/24 23:12 07/28/24 00:00 07/28/24 00:00 Temperature Pulse Rate 95 100 100 Respiratory Rate 18 Blood Pressure Pulse Oximetry 98 93 Oxygen Delivery Mechanical Ventilation Mechanical Ventilation Fraction of Inspired Oxygen 40 40 07/28/24 00:00 07/28/24 00:00 07/28/24 00:00 Temperature 97.9 F Pulse Rate 100 97 Respiratory Rate 18 8 L Blood Pressure 160/81 H Pulse Oximetry 93 Oxygen Delivery Fraction of Inspired Oxygen 40 07/28/24 00:00 07/28/24 00:00 07/28/24 01:46 Temperature Pulse Rate 99 100 109 H Respiratory Rate 18 18 18 Blood Pressure 160/81 H Pulse Oximetry Oxygen Delivery Fraction of Inspired Oxygen 07/28/24 01:48 07/28/24 01:55 07/28/24 02:00 Temperature Pulse Rate 106 H 116 H 135 H Respiratory Rate 18 18 Blood Pressure Pulse Oximetry 94 Oxygen Delivery Mechanical Ventilation Fraction of Inspired Oxygen 40 07/28/24 02:00 07/28/24 02:00 07/28/24 02:00 Temperature Pulse Rate 135 H 135 H 135 H Respiratory Rate 18 18 18 Blood Pressure Pulse Oximetry Oxygen Delivery Fraction of Inspired Oxygen 07/28/24 02:00 07/28/24 02:00 07/28/24 02:22 Temperature 98.2 F Pulse Rate 130 H 130 H 84 Respiratory Rate 18 18 Blood Pressure 203/118 H 161/80 H Pulse Oximetry 96 Oxygen Delivery Fraction of Inspired Oxygen 07/28/24 02:22 07/28/24 02:30 07/28/24 02:46 Temperature 98.1 F Pulse Rate 84 99 135 H Respiratory Rate 18 18 18 Blood Pressure 161/80 H 161/80 H Pulse Oximetry 93 Oxygen Delivery Fraction of Inspired Oxygen 07/28/24 04:00 07/28/24 04:00 07/28/24 04:00 Temperature Pulse Rate 74 74 Respiratory Rate 18 Blood Pressure Pulse Oximetry 95 Oxygen Delivery Mechanical Ventilation Fraction of Inspired Oxygen 40 40 07/28/24 04:00 07/28/24 04:00 07/28/24 04:00 Temperature 98.3 F Pulse Rate 74 75 74 Respiratory Rate 18 18 18 Blood Pressure 159/77 H Pulse Oximetry 95 Oxygen Delivery Fraction of Inspired Oxygen 07/28/24 04:00 07/28/24 04:00 07/28/24 05:30 Temperature Pulse Rate 74 74 66 Respiratory Rate 18 18 Blood Pressure 167/92 H Pulse Oximetry 94 Oxygen Delivery Mechanical Ventilation Fraction of Inspired Oxygen 40 07/28/24 06:00 07/28/24 06:00 07/28/24 06:00 Temperature Pulse Rate 88 88 88 Respiratory Rate 18 18 18 Blood Pressure 172/79 H Pulse Oximetry Oxygen Delivery Fraction of Inspired Oxygen 07/28/24 06:00 07/28/24 06:00 07/28/24 06:21 Temperature 97.3 F L Pulse Rate 91 88 88 Respiratory Rate 18 18 Blood Pressure 159/88 H Pulse Oximetry 94 Oxygen Delivery Fraction of Inspired Oxygen 07/28/24 06:21 07/28/24 07:51 07/28/24 07:54 Temperature Pulse Rate 88 88 87 Respiratory Rate 18 18 Blood Pressure Pulse Oximetry 95 Oxygen Delivery Mechanical Ventilation Fraction of Inspired Oxygen 40 07/28/24 08:00 07/28/24 08:00 07/28/24 08:00 Temperature Pulse Rate 88 88 Respiratory Rate 18 18 Blood Pressure Pulse Oximetry 95 Oxygen Delivery Mechanical Ventilation Fraction of Inspired Oxygen 40 07/28/24 08:00 07/28/24 08:00 07/28/24 08:00 Temperature Pulse Rate 88 88 Respiratory Rate 18 18 Blood Pressure 171/84 H Pulse Oximetry Oxygen Delivery Fraction of Inspired Oxygen 40 07/28/24 08:00 07/28/24 08:00 07/28/24 08:00 Temperature 97.0 F L Pulse Rate 88 89 93 Respiratory Rate 18 18 Blood Pressure 171/84 H Pulse Oximetry 95 Oxygen Delivery Fraction of Inspired Oxygen 07/28/24 08:58 07/28/24 09:10 07/28/24 09:15 Temperature Pulse Rate 112 H 125 H 114 H Respiratory Rate 20 20 20 Blood Pressure Pulse Oximetry Oxygen Delivery Fraction of Inspired Oxygen 07/28/24 09:29 07/28/24 09:36 07/28/24 09:40 Temperature Pulse Rate 111 H 114 H 120 H Respiratory Rate 26 H 26 H 26 H Blood Pressure Pulse Oximetry Oxygen Delivery Fraction of Inspired Oxygen 07/28/24 09:50 07/28/24 09:56 07/28/24 09:56 Temperature Pulse Rate 120 H 98 98 Respiratory Rate 30 H 26 H 26 H Blood Pressure Pulse Oximetry Oxygen Delivery Fraction of Inspired Oxygen 07/28/24 10:00 07/28/24 10:00 07/28/24 10:25 Temperature 98.1 F Pulse Rate 87 87 68 Respiratory Rate 22 H 20 Blood Pressure 136/74 Pulse Oximetry 90 Oxygen Delivery Fraction of Inspired Oxygen 07/28/24 10:25 07/28/24 11:52 07/28/24 12:00 Temperature 98.5 F Pulse Rate 68 66 67 Respiratory Rate 20 18 Blood Pressure 176/83 H Pulse Oximetry 96 96 Oxygen Delivery Mechanical Ventilation Fraction of Inspired Oxygen 50 07/28/24 12:00 07/28/24 12:00 07/28/24 12:00 Temperature Pulse Rate 63 Respiratory Rate Blood Pressure Pulse Oximetry 96 Oxygen Delivery Mechanical Ventilation Fraction of Inspired Oxygen 50 50 07/28/24 12:00 07/28/24 12:00 07/28/24 13:35 Temperature Pulse Rate 67 67 63 Respiratory Rate 18 18 22 H Blood Pressure Pulse Oximetry Oxygen Delivery Fraction of Inspired Oxygen 07/28/24 13:35 07/28/24 13:56 07/28/24 13:59 Temperature Pulse Rate 63 70 68 Respiratory Rate 22 H 16 Blood Pressure Pulse Oximetry 96 Oxygen Delivery Mechanical Ventilation Fraction of Inspired Oxygen 50 07/28/24 14:00 07/28/24 14:00 07/28/24 14:00 Temperature Pulse Rate 70 70 70 Respiratory Rate 22 H 22 H 22 H Blood Pressure Pulse Oximetry Oxygen Delivery Fraction of Inspired Oxygen 07/28/24 14:00 07/28/24 14:00 07/28/24 14:11 Temperature 98.5 F Pulse Rate 70 70 74 Respiratory Rate 22 H 19 Blood Pressure 176/92 H Pulse Oximetry 96 Oxygen Delivery Fraction of Inspired Oxygen 07/28/24 15:57 07/28/24 15:58 07/28/24 16:00 Temperature Pulse Rate 67 Respiratory Rate 22 H Blood Pressure Pulse Oximetry 97 Oxygen Delivery Mechanical Ventilation Fraction of Inspired Oxygen 50 50 07/28/24 16:00 Temperature Pulse Rate 67 Respiratory Rate 22 H Blood Pressure Pulse Oximetry Oxygen Delivery Fraction of Inspired Oxygen Intake/Output Intake/Output: Intake & Output 07/25/24 07/26/24 07/27/24 07/28/24 23:59 23:59 23:59 23:59 Intake Total 1420.5 2178.9 2510.5 1517.3 Output Total 530 1775 950 Balance 1420.5 1648.9 735.5 567.3 Meds/Results Medications: Active Medications Generic Name Dose Route Start Last Admin Trade Name Freq PRN Reason Stop Dose Admin Acetaminophen 650 mg 07/25/24 19:51 Acetaminophen Elixir 325 Mg/10.15 Ml Udc PO Q6H PRN Mild Pain (1-3) or Fever Albuterol/Ipratropium 3 ml 07/26/24 14:00 07/28/24 13:56 Ipratropium 0.5 Mg/Albuterol Sulfate 2.5 Mg Ampul.Neb 3 Ml INHALATION 3 ml Q6HRT JOSEMANUEL Administration Atorvastatin Calcium 40 mg 07/27/24 09:00 07/28/24 08:24 Atorvastatin 40 Mg Tablet PO 40 mg DAILY JOSEMANUEL Administration Dextrose 12.5 gm 07/27/24 12:28 Dextrose 50% 25 Gm/50 Ml Syringe IV PUSH PRN PRN Hypoglycemia Protocol Enoxaparin Sodium 40 mg 07/26/24 09:00 07/28/24 08:25 Enoxaparin 40 Mg/0.4 Ml Syringe SUB-Q 40 mg DAILY JOSEMANUEL Administration Fluticasone/Umeclidinium/Vilanterol 1 puff 07/27/24 08:00 07/28/24 08:45 Fluticasone/Umeclidin/Vilanter 100-62.5-25 Mcg Ellipta INHALATION Not Given DAILYRT JOSEMANUEL Glucagon 1 mg 07/27/24 12:28 Glucagon For Inj 1 Mg Vial IM PRN PRN Hypoglycemia Protocol Glucose 15 gm 07/27/24 12:28 Glucose Oral Gel 15 Gm Of Glucse In 37.5 Gm Tube PO PRN PRN Hypoglycemia Protocol Hydralazine HCl 10 mg 07/25/24 19:41 Hydralazine Hcl 20 Mg/Ml Vial IV PUSH Q8H PRN BP greater than 180/90 Fentanyl Citrate 2,500 mcg in 250 mls @ 0 mls/hr 07/25/24 17:30 07/28/24 08:58 Fentanyl 2,500 Mcg/Ns 250 Ml IV CONT 0 mcg/hr .Q0M JOSEMANUEL 0 mls/hr Titration Protocol Propofol 100 mls @ 24.9 mls/hr 07/25/24 23:05 07/28/24 16:00 Diprivan IV CONT 50 mcg/kg/min .Q4H1M JOSEMANUEL 24.9 mls/hr Titration Protocol 50 MCG/KG/MIN Cisatracurium Besylate 200 mg/ 100 mls @ 0 mls/hr 07/26/24 09:15 07/28/24 08:00 Sodium Chloride IV CONT 0 mcg/kg/min .Q0M JOSEMANUEL 0 mls/hr Titration Protocol 0 MCG/KG/MIN Norepinephrine Bitartrate 8 mg in 250 mls @ 9.375 mls/hr 07/26/24 14:40 07/27/24 21:17 Levophed 8 Mg/D5w 250 Ml IV CONT Not Given .Q24H JOSEMANUEL Protocol 5 MCG/MIN Dextrose 1,000 mls @ 100 mls/hr 07/27/24 12:28 Dextrose 5% 1,000 Ml IVPB PRN PRN Hypoglycemia Protocol Dexmedetomidine HCl 400 mcg in 100 mls @ 24.96 mls/hr 07/28/24 02:05 07/28/24 16:00 Precedex 400 Mcg/100 Ml IV CONT 1.2 mcg/kg/hr .Q4H1M JOSEMANUEL 24.96 mls/hr Titration Protocol 1.2 MCG/KG/HR Insulin Aspart 3 - 6 units 07/27/24 13:00 07/28/24 12:14 Insulin Aspart (*Bkc) 100 Units/Ml SUB-Q 3 units Q4HR JOSEMANUEL Administration Protocol Loratadine 10 mg 07/26/24 09:51 07/28/24 08:24 Loratadine 10 Mg Tablet FEED TUBE 10 mg QAM JOSEMANUEL Administration Methylprednisolone Sodium Succinate 60 mg 07/28/24 09:00 07/28/24 08:50 Methylprednisolone Sod Succ 125 Mg Vial IV PUSH 60 mg Q12H JOSEMANUEL Administration Montelukast Sodium 10 mg 07/26/24 21:00 07/27/24 21:32 Montelukast Sodium 10 Mg Tablet PO 10 mg QHS JOSEMANUEL Administration Multi-Ingred Cream/Lotion/Oil/Oint 1 applic 07/26/24 21:00 07/28/24 08:25 Mineral Oil/White Petrolatum Ointment EACH EYE 1 applic Q12HR JOSEMANUEL Administration Pantoprazole Sodium 40 mg 07/26/24 09:55 07/28/24 08:25 Pantoprazole Sodium Iv 40 Mg Vial IV PUSH 40 mg QAM JOSEMANUEL Administration Sodium Chloride 20 ml 07/26/24 10:36 Central Line Flush IV PUSH PRN PRN after blood draws Sodium Chloride 10 ml 07/26/24 10:36 Central Line Flush IV PUSH PRN PRN with TPN bag changes Sodium Chloride 10 ml 07/26/24 14:00 07/28/24 13:36 Central Line Flush IV PUSH 10 ml Q8HR JOSEMANUEL Administration Radiology Results: ITS Impressions Abdomen X-Ray 07/25/24 16:47 IMPRESSION: 1. Endotracheal tube tip 1 cm above the jose. 2. No acute cardiopulmonary disease. 3. Nasogastric tube extends into the stomach with distal tip projecting near the level of the gastroesophageal junction. Unclear with only AP projections tube extends back into the gastroesophageal junction were positioned more anteriorly in the body but superimposed over the gastroesophageal junction. Consider obtaining an oblique or crosstable lateral view for more definitive determination. Chest CT 07/25/24 17:51 IMPRESSION: 1. Minimal bilateral basal atelectasis with minimal effusion. 2. Endotracheal tube with the tip at the jose. Retraction by 2 to 3 cm is advised. 3. Left kidney stone. Chest X-Ray 07/26/24 10:28 IMPRESSION: 1. Lines and tubes in expected position as detailed above with left PICC line tip at the superior cavoatrial junction on the final image. 2. No acute cardiopulmonary disease. Renal Ultrasound 07/27/24 14:10 IMPRESSION: 1. Normal kidneys without hydronephrosis. Labs Labs: Laboratory Results - last 24 hr 07/27/24 07/28/24 07/28/24 21:21 05:02 06:42 WBC 16.2 H RBC 4.36 L Hgb 13.6 L Hct 41.0 L MCV 94.0 MCH 31.2 MCHC 33.2 RDW 13.3 Plt Count 253 MPV 9.4 Immature Gran % (Auto) 0.7 H Neut % (Auto) 92.8 H Lymph % (Auto) 3.4 L [place] % (Auto) 3.0 Eos % (Auto) 0.0 Baso % (Auto) 0.1 L Lymph # (Auto) 0.55 L [place] # (Auto) 0.5 Eos # (Auto) 0.0 Baso # (Auto) 0.0 Abs Immat Gran (auto) 0.12 H Absolute Neuts (auto) 15.0 H Absolute Nucleated RBC 0.000 Nucleated RBC % 0.0 Puncture Site Right radial ABG pH 7.417 ABG pCO2 44.6 ABG pO2 70.6 L ABG PO2/FiO2 Ratio 1.76 ABG HCO3 28.1 H ABG O2 Saturation 94.4 L ABG O2 Content 19.0 ABG Base Excess 3.0 A-a Gradient 163.3 Oxyhemoglobin 93.7 Total Hemoglobin 14.4 O2 Delivery Device Ventilator O2 Liters/Min Not Reportable Minute Volume Not Reportable Vent Rate 18 Vent Mode Cmv FiO2 40 Tidal Volume 450 PEEP 8 Peak Inspir Pressure Not Reportable Pressure Support Not Reportable Sodium 139 Potassium 4.5 Chloride 104 Carbon Dioxide 29 Anion Gap 6 BUN 31 H Creatinine 1.02 Estim Creat Clear Calc 65 Estimated GFR > 60 Glucose 199 H POC Capillary Glucose 164 H Calcium 8.6 Phosphorus 3.7 Magnesium 2.5 H Total Bilirubin 0.4 AST 23 ALT 28 Alkaline Phosphatase 112 Total Protein 6.0 L Albumin 3.8 Triglycerides 148 07/28/24 07/28/24 08:23 12:09 WBC RBC Hgb Hct MCV MCH MCHC RDW Plt Count MPV Immature Gran % (Auto) Neut % (Auto) Lymph % (Auto) [place] % (Auto) Eos % (Auto) Baso % (Auto) Lymph # (Auto) [place] # (Auto) Eos # (Auto) Baso # (Auto) Abs Immat Gran (auto) Absolute Neuts (auto) Absolute Nucleated RBC Nucleated RBC % Puncture Site ABG pH ABG pCO2 ABG pO2 ABG PO2/FiO2 Ratio ABG HCO3 ABG O2 Saturation ABG O2 Content ABG Base Excess A-a Gradient Oxyhemoglobin Total Hemoglobin O2 Delivery Device O2 Liters/Min Minute Volume Vent Rate Vent Mode FiO2 Tidal Volume PEEP Peak Inspir Pressure Pressure Support Sodium Potassium Chloride Carbon Dioxide Anion Gap BUN Creatinine Estim Creat Clear Calc Estimated GFR Glucose POC Capillary Glucose 222 H 218 H Calcium Phosphorus Magnesium Total Bilirubin AST ALT Alkaline Phosphatase Total Protein Albumin Triglycerides Hospitalist MIPS Advance Care Plan I have confirmed that the patient's Advanced Care Plan is present, code status is documented, or surrogate decision maker is listed in patient medical record.: Yes Medication Reconciliation I have utilized all available resources to obtain, update and review the patients current medications (includes all prescriptions, OTC, herbals, cannabis, and nutritional supplements).: Yes
[2024-07-28 16:28] LABS: Glucose Point of Care 259 mg/dl (65-105)
[2024-07-28] MEDS: dexmedeTOMIDine 400 MCG/100 ML 400 MCG/100 ML BAG 27.04 MCG IV CONT (17:50)
[2024-07-28] MEDS: hydrALAZINE HCL 20 MG/ML VIAL 10 MG IV PUSH (19:38)
[2024-07-28] MEDS: dexmedeTOMIDine 400 MCG/100 ML 400 MCG/100 ML BAG 31.2 MCG IV CONT (21:06)
[2024-07-28] MEDS: MONTELUKAST SODIUM 10 MG TABLET PO (21:13)
[2024-07-28 21:16] LABS: Glucose Point of Care 202 mg/dl (65-105)
[2024-07-28] MEDS: CISATRACURIUM BESYLATE 20 MG/10 ML VIAL 10 MG IV PUSH (23:50)
[2024-07-28] MEDS: CISATRACURIUM BESYLATE 200 MG in SODIUM CHLORIDE 0.9% IV 80 ML 8.11 ML IV CONT (23:55)
[2024-07-29] VITALS (52 sets, daily range): BP systolic 133–192; BP diastolic 66–106; PULSE 57–121; RESP 13–38; TEMP 36.3–37.4; O2SAT 93–98
[2024-07-29] MEDS: dexmedeTOMIDine 400 MCG/100 ML 400 MCG/100 ML BAG 31.2 MCG IV CONT ×8 (00:20→22:36)
[2024-07-29] MEDS: MIDAZOLAM HCL (*CRX) 2 MG/2 ML VIAL 4 MG IV PUSH ×5 (00:51→10:19)
[2024-07-29] MEDS: hydrALAZINE HCL 20 MG/ML VIAL 10 MG IV PUSH (00:51)
[2024-07-29] MEDS: PROPOFOL IV EMULSION 100 ML 24.9 MG IV CONT ×6 (02:00→21:57)
[2024-07-29] MEDS: IPRATROPIUM 0.5 MG/ALBUTEROL SULFATE 2.5 MG AMPUL.NEB 3 ML INHALATION ×4 (02:02→20:22)
[2024-07-29 04:42] LABS: Base Excess ABG 1.3 mEq/l (+/-2.0); Fractional Inspired Oxygen 50 %; HCO3 ABG 26.9 mEq/l (22.0-26.0); Oxygen Content ABG 21.3 %vol (16.0-22.0); Oxygen Saturation ABG 98.1 % (95.0-100.0); PCO2 ABG 45.9 mmHg (35.0-45.0); PO2 ABG 114.9 mmHg (80.0-100.0); Total Hemoglobin 15.4 g/dL (12.0-18.0); pH ABG 7.386 (7.350-7.450)
[2024-07-29 04:58] LABS: Basophils Percent Auto 0.2 % (0.2-1.2); Hematocrit 42.6 % (42.0-52.0); Hemoglobin 14.6 g/dL (14.0-18.0); Immature Granulocyte Absolute 0.19 K/mm3 (0.00-0.031); Immature Granulocyte Percent A 1.3 % (0-0.5); Lymphocytes Percent Auto 4.7 % (18.3-44.2); Mean Corpuscular HGB Conc 34.3 g/dl (32-36); Mean Corpuscular Hemoglobin 31.7 pg (26-34); Mean Corpuscular Volume 92.6 fl (80-100); Mean Platelet Volume 9.3 fl (7.4-10.4); Monocytes Absolute Auto 1.3 K/mm3 (0.1-0.6); Monocytes Percent Auto 8.4 % (2.6-8.5); Neutrophils Absolute Auto 12.7 K/mm3 (1.3-6.7); Neutrophils Percent Auto 85.4 % (45.5-73.1); Platelet Count Result 237 k/mm3 (150-375); Red Cell Distribution Width 13.2 % (11.5-14.5); White Blood Count 14.9 K/mm3 (4.5-10.0)
[2024-07-29 05:15] LABS: Device VENTILATOR; Site Drawn RIGHT RADIAL
[2024-07-29 05:15] LABS: Glucose Point of Care 191 mg/dl (65-105)
[2024-07-29 05:16] LABS: Arterial Blood Gas PEEP 8 cmH2O; Arterial Blood Gas Tidal Volume 450 ml; Arterial Blood Gas Vent Mode CMV; Arterial Blood Gas Ventilator rate 18 /MIN
[2024-07-29 05:19] LABS: Alanine Aminotransferase 35 U/L (6-50); Albumin Level 3.9 g/dL (3.5-5.1); Alkaline Phosphatase 109 U/L (38-126); Anion Gap 10 mmol/L (4-12); Aspartate Amino Transferase 28 U/L (17-59); Bilirubin,Total 0.6 mg/dL (0.2-1.3); Blood Urea Nitrogen 33 mg/dL (9-20); Calcium 8.7 mg/dL (8.4-10.2); Carbon Dioxide 31 mmol/L (22-30); Chloride 98 mmol/L (98-107); Estimated CRCL calculation 73 ml/min; Estimated Glomerular Filt Rate > 60; Glucose 243 mg/dL (65-110); Magnesium 2.6 mg/dL (1.6-2.3); Phosphorus 4.8 mg/dL (2.5-4.5); Potassium 4.5 mmol/L (3.4-5.0); Sodium 139 mmol/L (137-145); Triglycerides 254 mg/dL (<150)
[2024-07-29 07:39] LABS: Glucose Point of Care 254 mg/dl (65-105)
[2024-07-29] MEDS: methylPREDNISolone SOD SUCC 125 MG VIAL 60 MG IV PUSH (08:04)
[2024-07-29] MEDS: INSULIN GLARGINE (*BKC) 100 UNITS/ML 10 UNITS SUB-Q (08:04)
[2024-07-29] MEDS: ATORVASTATIN 40 MG TABLET PO (08:05)
[2024-07-29] MEDS: LORATADINE 10 MG TABLET FEED TUBE (08:05)
[2024-07-29] MEDS: MINERAL OIL/WHITE PETROLATUM OINTMENT 1 APPLIC EACH EYE ×3 (08:05→20:42)
[2024-07-29] MEDS: PANTOPRAZOLE SODIUM IV 40 MG VIAL IV PUSH (08:05)
[2024-07-29] MEDS: ENOXAPARIN 40 MG/0.4 ML SYRINGE SUB-Q (08:05)
[2024-07-29] MEDS: INSULIN ASPART (*BKC) 100 UNITS/ML SUB-Q ×4 (08:06→20:41)
[2024-07-29] MEDS: CENTRAL LINE FLUSH 10 ML IV PUSH ×3 (08:08→20:42)
[2024-07-29] MEDS: FENTANYL 2,500MCG/NS250ML(*CRX 2,500 MCG/250 ML BAG 10 MCG IV CONT (08:17)
--- NOTE | 2024-07-29 08:59 | P.PNINT_ITS ---
Progress Note: A&P Assessment and Plan (1) Acute respiratory failure with hypoxia and hypercapnia: Code(s): J96.01 - Acute respiratory failure with hypoxia; J96.02 - Acute respiratory failure with hypercapnia Status: Acute Assessment and Plan: Acute hypoxic and hypercarbic respiratory failure which appears to be secondary to status asthmaticus. Patient has history of allergic asthma and his presentation is consistent. Patient may also have mild underlying COPD considering his long history of smoking but has not been officially diagnosed. CT scan did not show any infiltrates and procalcitonin level was low suggesting against any pneumonia Currently intubated and on mechanical ventilation. Patient was heavily sedated. Patient was still asynchronous with ventilator and was given rocuronium and started on Nimbex infusion 07/27 patient's Nimbex infusion was discontinued and sedation was lowered. As the sedation wore off patient became more tachypneic with asynchrony with the ventilator. At that time patient had high peak pressures and bilateral wheezing. Patient was started back on sedation and had to BT paralyzed. 07/28 pause Nimbex infusion. Will try to wean off sedation and evaluate for weaning trial today. Hold further fluids 07/29 patient has been exhibiting dynamic airway obstruction. When sedated and paralyzed clearly his airway pressures are low, no wheezing. When paralytics are discontinued in sedation is lowered patient becomes tachypneic, asynchronous with ventilator leading to high peak pressures and wheezing on exam.. I have him on Precedex infusion for anxiolysis. I will again discontinue Nimbex infusion and then lower propofol. Depending on how he responds will evaluate for weaning trial. Chest x-ray, ABG Ventilator settings reviewed. Continue Solu-Medrol but decrease dose to daily, scheduled bronchodilators contain Claritin Hold antibiotics discussed with pulmonary (2) Hypertension: Qualifiers: Hypertension type: primary hypertension Qualified Code(s): I10 - Essential (primary) hypertension Code(s): I10 - Essential (primary) hypertension Status: Chronic Assessment and Plan: Patient blood pressure is now soft secondary to sedation. Hold antihypertensive medications (3) Allergic asthma: Qualifiers: Asthma severity: severe Asthma persistence: persistent Asthma complication type: with acute exacerbation Qualified Code(s): J45.51 - Severe persistent asthma with (acute) exacerbation Code(s): J45.909 - Unspecified asthma, uncomplicated Status: Acute Assessment and Plan: See above (4) COPD (chronic obstructive pulmonary disease): Qualifiers: COPD type: unspecified COPD Qualified Code(s): J44.9 - Chronic obstructive pulmonary disease, unspecified Code(s): J44.9 - Chronic obstructive pulmonary disease, unspecified Status: Acute Assessment and Plan: See above (5) Obstructive sleep apnea: Code(s): G47.33 - Obstructive sleep apnea (adult) (pediatric) Status: Acute Assessment and Plan: Currently intubated and on mechanical ventilation (6) Status asthmaticus: Code(s): J45.902 - Unspecified asthma with status asthmaticus Status: Acute Assessment and Plan: See above (7) GRACIELA (acute kidney injury): Code(s): N17.9 - Acute kidney failure, unspecified Status: Acute Assessment and Plan: patient developed GRACIELA. His creatinine yesterday was 2.18. Likely secondary to hypotension vs hypovolemia patient was given IV fluids and creatinine has improved and now normalized Normal renal ultrasound, CK was mildly elevate monitor urine output electrolytes and creatinine Patient has been on IV fluids. I will hold further IV fluids at this time Plan DVT prophylaxis -Lovenox Stress ulcer prophylaxis -Protonix Nutrition - continue Tube Feeds Code Status - Full Code I spoke to patient's in detail at bedside and updated her with patient's current status and current treatment plan. I answered all her questions. Total Critical Care Time - 30 minutes Due to a high probability of clinically significant, life threatening deterioration, the patient required my highest level of preparedness to intervene emergently and I personally spent this critical care time directly and personally managing the patient. This critical care time included obtaining a history; examining the patient; pulse oximetry; ordering and review of studies; arranging urgent treatment with development of a management plan; evaluation of patient's response to treatment; frequent reassessment; and discussions with other providers. It was exclusive of separately billable procedures and treating other patients and teaching time. Please see Assessment and Plan section and the rest of the note for further information on patient assessment and treatment Subjective Date/time seen: 07/29/24 Overnight events reviewed. Afebrile Continues to be on mechanical ventilation 40% FiO2 Continues to be on vasopressors Continues to be sedated with propofol and Precedex. Overnight patient had to be restarted on Nimbex infusion due to high respiratory rate and asynchrony with the ventilator Good urine output.Vitals acceptable Tolerating tube feeds Review of Systems Review of Systems: ROS unobtainable: Yes unobtainable due to endotracheal tube, unobtainable due to medical condition and unobtainable due to mental status Exam Narrative: General: Pt is sedated, intubated and on mechanical ventilation Lungs/Chest: Trachea central nol wheezing, Improved overall air movement, no wheezing when patient is paralyzed, Vent paralytics are off patient become a synchronous with the vent and has bilateral wheezing on exam Cardiac: RRR. Normal S1 S2. No murmurs Circulation: Pedal pulses are intact and symmetrical. Abdomen: Decreased bowel sounds. Obese. Soft. NT. ND. Extremities: No clubbing, cyanosis or edema. Warm : Garcia in place Neurologic: Unable to assess due to sedation and chemical paralysis PERRL Paralysed with nimbex Objective Data Vital Signs Vital Signs: Vital Signs - 24 hr 07/28/24 09:10 07/28/24 09:15 07/28/24 09:29 Temperature Pulse Rate 125 H 114 H 111 H Respiratory Rate 20 20 26 H Blood Pressure Pulse Oximetry Oxygen Delivery Fraction of Inspired Oxygen 07/28/24 09:36 07/28/24 09:40 07/28/24 09:50 Temperature Pulse Rate 114 H 120 H 120 H Respiratory Rate 26 H 26 H 30 H Blood Pressure Pulse Oximetry Oxygen Delivery Fraction of Inspired Oxygen 07/28/24 09:56 07/28/24 09:56 07/28/24 10:00 Temperature Pulse Rate 98 98 87 Respiratory Rate 26 H 26 H Blood Pressure Pulse Oximetry Oxygen Delivery Fraction of Inspired Oxygen 07/28/24 10:00 07/28/24 10:25 07/28/24 10:25 Temperature 36.7 C Pulse Rate 87 68 68 Respiratory Rate 22 H 20 20 Blood Pressure 136/74 Pulse Oximetry 90 Oxygen Delivery Fraction of Inspired Oxygen 07/28/24 11:52 07/28/24 12:00 07/28/24 12:00 Temperature 36.9 C Pulse Rate 66 67 Respiratory Rate 18 Blood Pressure 176/83 H Pulse Oximetry 96 96 Oxygen Delivery Mechanical Ventilation Fraction of Inspired Oxygen 50 50 07/28/24 12:00 07/28/24 12:00 07/28/24 12:00 Temperature Pulse Rate 63 67 Respiratory Rate 18 Blood Pressure Pulse Oximetry 96 Oxygen Delivery Mechanical Ventilation Fraction of Inspired Oxygen 50 07/28/24 12:00 07/28/24 13:35 07/28/24 13:35 Temperature Pulse Rate 67 63 63 Respiratory Rate 18 22 H 22 H Blood Pressure Pulse Oximetry Oxygen Delivery Fraction of Inspired Oxygen 07/28/24 13:56 07/28/24 13:59 07/28/24 14:00 Temperature Pulse Rate 70 68 70 Respiratory Rate 16 22 H Blood Pressure Pulse Oximetry 96 Oxygen Delivery Mechanical Ventilation Fraction of Inspired Oxygen 50 07/28/24 14:00 07/28/24 14:00 07/28/24 14:00 Temperature Pulse Rate 70 70 70 Respiratory Rate 22 H 22 H Blood Pressure Pulse Oximetry Oxygen Delivery Fraction of Inspired Oxygen 07/28/24 14:00 07/28/24 14:11 07/28/24 15:57 Temperature 36.9 C Pulse Rate 70 74 Respiratory Rate 22 H 19 Blood Pressure 176/92 H Pulse Oximetry 96 97 Oxygen Delivery Mechanical Ventilation Fraction of Inspired Oxygen 50 07/28/24 15:58 07/28/24 16:00 07/28/24 16:00 Temperature Pulse Rate 67 67 Respiratory Rate 22 H 22 H Blood Pressure Pulse Oximetry Oxygen Delivery Fraction of Inspired Oxygen 50 07/28/24 16:00 07/28/24 16:00 07/28/24 16:32 Temperature 37.1 C Pulse Rate 67 74 65 Respiratory Rate 22 H 26 H Blood Pressure 167/79 H Pulse Oximetry 97 Oxygen Delivery Fraction of Inspired Oxygen 07/28/24 16:58 07/28/24 17:50 07/28/24 17:50 Temperature Pulse Rate 59 L 55 L 55 L Respiratory Rate 18 18 Blood Pressure Pulse Oximetry 96 Oxygen Delivery Mechanical Ventilation Fraction of Inspired Oxygen 50 07/28/24 17:50 07/28/24 17:50 07/28/24 18:00 Temperature Pulse Rate 55 L 55 L 55 L Respiratory Rate 18 18 Blood Pressure Pulse Oximetry Oxygen Delivery Fraction of Inspired Oxygen 07/28/24 18:00 07/28/24 18:00 07/28/24 18:00 Temperature 37.3 C Pulse Rate 55 L 55 L 55 L Respiratory Rate 22 H 18 18 Blood Pressure 178/79 H Pulse Oximetry 96 Oxygen Delivery Fraction of Inspired Oxygen 07/28/24 19:00 07/28/24 19:51 07/28/24 19:51 Temperature Pulse Rate 59 L 54 L 64 Respiratory Rate 20 21 H Blood Pressure 185/82 H Pulse Oximetry 95 95 Oxygen Delivery Mechanical Ventilation Fraction of Inspired Oxygen 50 07/28/24 19:55 07/28/24 20:00 07/28/24 20:00 Temperature Pulse Rate 55 L 55 L 52 L Respiratory Rate 21 H 21 H Blood Pressure Pulse Oximetry 95 Oxygen Delivery Mechanical Ventilation Fraction of Inspired Oxygen 50 07/28/24 20:00 07/28/24 20:00 07/28/24 20:00 Temperature 37.4 C Pulse Rate 53 L 53 L Respiratory Rate 21 H 21 H Blood Pressure 151/68 H Pulse Oximetry 95 Oxygen Delivery Fraction of Inspired Oxygen 50 07/28/24 20:00 07/28/24 21:06 07/28/24 21:06 Temperature Pulse Rate 53 L 54 L 54 L Respiratory Rate 21 H 22 H 22 H Blood Pressure Pulse Oximetry Oxygen Delivery Fraction of Inspired Oxygen 07/28/24 21:51 07/28/24 22:00 07/28/24 22:00 Temperature 37.4 C Pulse Rate 93 79 98 Respiratory Rate 30 H 30 H Blood Pressure 173/86 H Pulse Oximetry 97 Oxygen Delivery Fraction of Inspired Oxygen 07/28/24 22:00 07/28/24 22:00 07/28/24 23:05 Temperature Pulse Rate 93 93 62 Respiratory Rate 30 H 30 H Blood Pressure Pulse Oximetry 95 Oxygen Delivery Mechanical Ventilation Fraction of Inspired Oxygen 50 07/28/24 23:55 07/29/24 00:00 07/29/24 00:00 Temperature Pulse Rate 61 99 99 Respiratory Rate 22 H 35 H Blood Pressure 175/100 H Pulse Oximetry 95 Oxygen Delivery Mechanical Ventilation Fraction of Inspired Oxygen 50 07/29/24 00:00 07/29/24 00:00 07/29/24 00:00 Temperature 37.2 C Pulse Rate 99 99 Respiratory Rate 22 H 22 H Blood Pressure 175/106 H Pulse Oximetry 97 Oxygen Delivery Fraction of Inspired Oxygen 50 07/29/24 00:19 07/29/24 00:20 07/29/24 01:00 Temperature 37.4 C Pulse Rate 99 99 74 Respiratory Rate 22 H 22 H 18 Blood Pressure 133/66 Pulse Oximetry 95 Oxygen Delivery Fraction of Inspired Oxygen 07/29/24 02:00 07/29/24 02:00 07/29/24 02:00 Temperature Pulse Rate 120 H 120 H 120 H Respiratory Rate 18 18 18 Blood Pressure Pulse Oximetry Oxygen Delivery Fraction of Inspired Oxygen 07/29/24 02:00 07/29/24 02:00 07/29/24 02:00 Temperature 37.2 C Pulse Rate 120 H 121 H 118 H Respiratory Rate 18 18 Blood Pressure 188/88 H 188/88 H Pulse Oximetry 97 Oxygen Delivery Fraction of Inspired Oxygen 07/29/24 02:02 07/29/24 02:02 07/29/24 03:15 Temperature Pulse Rate 106 H 106 H 118 H Respiratory Rate 18 18 Blood Pressure Pulse Oximetry 97 Oxygen Delivery Mechanical Ventilation Fraction of Inspired Oxygen 50 07/29/24 03:15 07/29/24 04:00 07/29/24 04:00 Temperature Pulse Rate 118 H 64 64 Respiratory Rate 18 18 Blood Pressure Pulse Oximetry 96 Oxygen Delivery Mechanical Ventilation Fraction of Inspired Oxygen 50 07/29/24 04:00 07/29/24 04:00 07/29/24 04:00 Temperature 37.1 C Pulse Rate 64 64 Respiratory Rate 18 18 Blood Pressure 141/68 H Pulse Oximetry 98 Oxygen Delivery Fraction of Inspired Oxygen 50 07/29/24 04:00 07/29/24 04:00 07/29/24 04:31 Temperature Pulse Rate 64 66 64 Respiratory Rate 18 18 Blood Pressure 141/68 H Pulse Oximetry 96 Oxygen Delivery Mechanical Ventilation Fraction of Inspired Oxygen 50 07/29/24 06:00 07/29/24 06:00 07/29/24 06:00 Temperature 36.4 C Pulse Rate 91 91 91 Respiratory Rate 18 18 Blood Pressure 172/91 H Pulse Oximetry 96 Oxygen Delivery Fraction of Inspired Oxygen 07/29/24 06:00 07/29/24 06:00 07/29/24 06:00 Temperature Pulse Rate 91 91 91 Respiratory Rate 18 18 18 Blood Pressure Pulse Oximetry Oxygen Delivery Fraction of Inspired Oxygen 07/29/24 06:00 07/29/24 07:42 07/29/24 08:15 Temperature 36.3 C L Pulse Rate 90 60 60 Respiratory Rate 18 18 Blood Pressure 172/91 H 148/74 H Pulse Oximetry 97 95 Oxygen Delivery Mechanical Ventilation Fraction of Inspired Oxygen 45 07/29/24 08:15 07/29/24 08:17 07/29/24 08:27 Temperature Pulse Rate 60 58 L 59 L Respiratory Rate 18 18 18 Blood Pressure Pulse Oximetry Oxygen Delivery Fraction of Inspired Oxygen 07/29/24 08:47 Temperature Pulse Rate 78 Respiratory Rate 25 H Blood Pressure Pulse Oximetry Oxygen Delivery Fraction of Inspired Oxygen Intake/Output Intake/Output: Intake & Output 07/26/24 07/27/24 07/28/24 07/29/24 23:59 23:59 23:59 23:59 Intake Total 2178.9 2510.5 2490.6 1163.8 Output Total 530 1775 2750 2980 Balance 1648.9 735.5 -259.4 -1816.2 Meds/Results Medications: Active Medications Generic Name Dose Route Start Last Admin Trade Name Freq PRN Reason Stop Dose Admin Acetaminophen 650 mg 07/25/24 19:51 Acetaminophen Elixir 325 Mg/10.15 Ml Udc PO Q6H PRN Mild Pain (1-3) or Fever Albuterol/Ipratropium 3 ml 07/26/24 14:00 07/29/24 08:12 Ipratropium 0.5 Mg/Albuterol Sulfate 2.5 Mg Ampul.Neb 3 Ml INHALATION 3 ml Q6HRT JOSEMANUEL Administration Atorvastatin Calcium 40 mg 07/27/24 09:00 07/29/24 08:05 Atorvastatin 40 Mg Tablet PO 40 mg DAILY JOSEMANUEL Administration Dextrose 12.5 gm 07/27/24 12:28 Dextrose 50% 25 Gm/50 Ml Syringe IV PUSH PRN PRN Hypoglycemia Protocol Enoxaparin Sodium 40 mg 07/26/24 09:00 07/29/24 08:05 Enoxaparin 40 Mg/0.4 Ml Syringe SUB-Q 40 mg DAILY JOSEMANUEL Administration Fluticasone/Umeclidinium/Vilanterol 1 puff 07/27/24 08:00 07/28/24 08:45 Fluticasone/Umeclidin/Vilanter 100-62.5-25 Mcg Ellipta INHALATION Not Given DAILYRT JOSEMANUEL Glucagon 1 mg 07/27/24 12:28 Glucagon For Inj 1 Mg Vial IM PRN PRN Hypoglycemia Protocol Glucose 15 gm 07/27/24 12:28 Glucose Oral Gel 15 Gm Of Glucse In 37.5 Gm Tube PO PRN PRN Hypoglycemia Protocol Hydralazine HCl 10 mg 07/25/24 19:41 07/29/24 00:51 Hydralazine Hcl 20 Mg/Ml Vial IV PUSH 10 mg Q8H PRN Administration BP greater than 180/90 Propofol 100 mls @ 24.9 mls/hr 07/25/24 23:05 07/29/24 06:00 Diprivan IV CONT 50 mcg/kg/min .Q4H1M JOSEMANUEL 24.9 mls/hr Administration Protocol 50 MCG/KG/MIN Norepinephrine Bitartrate 8 mg in 250 mls @ 9.375 mls/hr 07/26/24 14:40 07/27/24 21:17 Levophed 8 Mg/D5w 250 Ml IV CONT Not Given .Q24H JOSEMANUEL Protocol 5 MCG/MIN Dextrose 1,000 mls @ 100 mls/hr 07/27/24 12:28 Dextrose 5% 1,000 Ml IVPB PRN PRN Hypoglycemia Protocol Dexmedetomidine HCl 400 mcg in 100 mls @ 31.2 mls/hr 07/28/24 02:05 07/29/24 06:00 Precedex 400 Mcg/100 Ml IV CONT 1.5 mcg/kg/hr .Q3H13M JOSEMANUEL 31.2 mls/hr Administration Protocol 1.5 MCG/KG/HR Cisatracurium Besylate 200 mg/ 100 mls @ 2.703 mls/hr 07/28/24 23:05 07/29/24 06:00 Sodium Chloride IV CONT 1 mcg/kg/min .Q37H JOSEMANUEL 2.7 mls/hr Titration Protocol 1 MCG/KG/MIN Fentanyl Citrate 2,500 mcg in 250 mls @ 12.5 mls/hr 07/29/24 08:20 07/29/24 08:47 Fentanyl 2,500 Mcg/Ns 250 Ml IV CONT 125 mcg/hr .Q20H JOSEMANUEL 12.5 mls/hr Titration Protocol 125 MCG/HR Insulin Aspart 3 - 6 units 07/27/24 13:00 07/29/24 08:06 Insulin Aspart (*Bkc) 100 Units/Ml SUB-Q 4 units Q4HR JOSEMANUEL Administration Protocol Insulin Glargine 10 units 07/29/24 09:00 07/29/24 08:04 Insulin Glargine (*Bkc) 100 Units/Ml SUB-Q 10 units QAM JOSEMANUEL Administration Loratadine 10 mg 07/26/24 09:51 07/29/24 08:05 Loratadine 10 Mg Tablet FEED TUBE 10 mg QAM JOSEMANUEL Administration Methylprednisolone Sodium Succinate 60 mg 07/28/24 09:00 07/29/24 08:04 Methylprednisolone Sod Succ 125 Mg Vial IV PUSH 60 mg Q12H JOSEMANUEL Administration Midazolam HCl 4 mg 07/28/24 23:03 07/29/24 05:16 Midazolam Hcl (*Crx) 2 Mg/2 Ml Vial IV PUSH 4 mg Q1H PRN Administration Agitation Montelukast Sodium 10 mg 07/26/24 21:00 07/28/24 21:13 Montelukast Sodium 10 Mg Tablet PO 10 mg QHS JOSEMANUEL Administration Multi-Ingred Cream/Lotion/Oil/Oint 1 applic 07/29/24 09:00 Mineral Oil/White Petrolatum Ointment EACH EYE Q12HR JOSEMANUEL Pantoprazole Sodium 40 mg 07/26/24 09:55 07/29/24 08:05 Pantoprazole Sodium Iv 40 Mg Vial IV PUSH 40 mg QAM JOSEMANUEL Administration Sodium Chloride 20 ml 07/26/24 10:36 Central Line Flush IV PUSH PRN PRN after blood draws Sodium Chloride 10 ml 07/26/24 10:36 Central Line Flush IV PUSH PRN PRN with TPN bag changes Sodium Chloride 10 ml 07/26/24 14:00 07/29/24 08:08 Central Line Flush IV PUSH 10 ml Q8HR JOSEMANUEL Administration Radiology Results: ITS Impressions Abdomen X-Ray 07/25/24 16:47 IMPRESSION: 1. Endotracheal tube tip 1 cm above the jose. 2. No acute cardiopulmonary disease. 3. Nasogastric tube extends into the stomach with distal tip projecting near the level of the gastroesophageal junction. Unclear with only AP projections tube extends back into the gastroesophageal junction were positioned more anteriorly in the body but superimposed over the gastroesophageal junction. Consider obtaining an oblique or crosstable lateral view for more definitive determination. Chest CT 07/25/24 17:51 IMPRESSION: 1. Minimal bilateral basal atelectasis with minimal effusion. 2. Endotracheal tube with the tip at the jose. Retraction by 2 to 3 cm is advised. 3. Left kidney stone. Renal Ultrasound 07/27/24 14:10 IMPRESSION: 1. Normal kidneys without hydronephrosis. Chest X-Ray 07/29/24 06:52 IMPRESSION: Left basilar infiltrate is suspected with a small left-sided pleural effusion. Supportive lines and tubes in good position. Labs Labs: Laboratory Results - last 24 hr 07/28/24 07/28/24 07/28/24 12:09 16:23 21:06 WBC RBC Hgb Hct MCV MCH MCHC RDW Plt Count MPV Immature Gran % (Auto) Neut % (Auto) Lymph % (Auto) [place] % (Auto) Eos % (Auto) Baso % (Auto) Lymph # (Auto) [place] # (Auto) Eos # (Auto) Baso # (Auto) Abs Immat Gran (auto) Absolute Neuts (auto) Absolute Nucleated RBC Nucleated RBC % Puncture Site ABG pH ABG pCO2 ABG pO2 ABG PO2/FiO2 Ratio ABG HCO3 ABG O2 Saturation ABG O2 Content ABG Base Excess A-a Gradient Oxyhemoglobin Total Hemoglobin O2 Delivery Device O2 Liters/Min Minute Volume Vent Rate Vent Mode FiO2 Tidal Volume PEEP Peak Inspir Pressure Pressure Support Sodium Potassium Chloride Carbon Dioxide Anion Gap BUN Creatinine Estim Creat Clear Calc Estimated GFR Glucose POC Capillary Glucose 218 H 259 H 202 H Calcium Phosphorus Magnesium Total Bilirubin AST ALT Alkaline Phosphatase Total Protein Albumin Triglycerides 07/29/24 07/29/24 07/29/24 00:53 04:32 04:50 WBC 14.9 H RBC 4.60 Hgb 14.6 Hct 42.6 MCV 92.6 MCH 31.7 MCHC 34.3 RDW 13.2 Plt Count 237 MPV 9.3 Immature Gran % (Auto) 1.3 H Neut % (Auto) 85.4 H Lymph % (Auto) 4.7 L [place] % (Auto) 8.4 Eos % (Auto) 0.0 Baso % (Auto) 0.2 Lymph # (Auto) 0.70 L [place] # (Auto) 1.3 H Eos # (Auto) 0.0 Baso # (Auto) 0.0 Abs Immat Gran (auto) 0.19 H Absolute Neuts (auto) 12.7 H Absolute Nucleated RBC 0.000 Nucleated RBC % 0.0 Puncture Site Right radial ABG pH 7.386 ABG pCO2 45.9 H ABG pO2 114.9 H ABG PO2/FiO2 Ratio 2.30 ABG HCO3 26.9 H ABG O2 Saturation 98.1 ABG O2 Content 21.3 ABG Base Excess 1.3 A-a Gradient 190.0 Oxyhemoglobin 98.0 Total Hemoglobin 15.4 O2 Delivery Device Ventilator O2 Liters/Min Not Reportable Minute Volume Not Reportable Vent Rate 18 Vent Mode Cmv FiO2 50 Tidal Volume 450 PEEP 8 Peak Inspir Pressure Not Reportable Pressure Support Not Reportable Sodium 139 Potassium 4.5 Chloride 98 Carbon Dioxide 31 H Anion Gap 10 BUN 33 H Creatinine 0.91 Estim Creat Clear Calc 73 Estimated GFR > 60 Glucose 243 H POC Capillary Glucose 191 H Calcium 8.7 Phosphorus 4.8 H Magnesium 2.6 H Total Bilirubin 0.6 AST 28 ALT 35 Alkaline Phosphatase 109 Total Protein 7.0 Albumin 3.9 Triglycerides 254 H 07/29/24 07:26 WBC RBC Hgb Hct MCV MCH MCHC RDW Plt Count MPV Immature Gran % (Auto) Neut % (Auto) Lymph % (Auto) [place] % (Auto) Eos % (Auto) Baso % (Auto) Lymph # (Auto) [place] # (Auto) Eos # (Auto) Baso # (Auto) Abs Immat Gran (auto) Absolute Neuts (auto) Absolute Nucleated RBC Nucleated RBC % Puncture Site ABG pH ABG pCO2 ABG pO2 ABG PO2/FiO2 Ratio ABG HCO3 ABG O2 Saturation ABG O2 Content ABG Base Excess A-a Gradient Oxyhemoglobin Total Hemoglobin O2 Delivery Device O2 Liters/Min Minute Volume Vent Rate Vent Mode FiO2 Tidal Volume PEEP Peak Inspir Pressure Pressure Support Sodium Potassium Chloride Carbon Dioxide Anion Gap BUN Creatinine Estim Creat Clear Calc Estimated GFR Glucose POC Capillary Glucose 254 H Calcium Phosphorus Magnesium Total Bilirubin AST ALT Alkaline Phosphatase Total Protein Albumin Triglycerides Quality VTE Prophylaxis VTE prophylaxis: pharmacologic ordered
--- NOTE | 2024-07-29 10:18 | P.PNPL_ITS ---
Progress Note: A&P Assessment and Plan (1) Status asthmaticus: Code(s): J45.902 - Unspecified asthma with status asthmaticus Status: Acute Assessment and Plan: This 68-year-old man, with normal pulmonary function testing measured 4 months ago, had had frequent coughing and wheezing, with three previous hospitalizations for obstructive airway disease over the last few months. He presented with a several-day history of progressively increasing shortness of breath and coughing. The patient?s clinical history of obstructive airway disease, combined with diagnostic studies showing eosinophilia and significant improvement with oral steroid regimens following each hospitalization, suggests uncontrolled eosinophilic asthma. The current presentation is typical for status asthmaticus, as the patient exhibited respiratory alkalosis, did not respond to bronchodilators administered in the ER, and progressed to metabolic and respiratory acidosis. Following intubation, the patient was fully sedated and paralyzed due to difficulties encountered by the sintering press operator in ventilating him. Yesterday, a review of respiratory mechanics while the patient was passively ventilated showed a total respiratory resistance of 20 cm/L/sec, which is mildly elevated, and an expiratory time constant of 0.64 seconds, which is in the normal range. There was no auto PEEP. His chest CT shows mild atelectasis at the bases posteriorly and small pleural effusions, with no evidence of lower respiratory tract infection. Over the past 24 hours, the patient's respiratory status has remained stable while being fully sedated and paralyzed on mechanical ventilation. The patient did not successfully complete the weaning trial yesterday. This morning, while still sedated and paralyzed on mechanical ventilation, respiratory mechanics indicated an inspiratory resistance of 14, static compliance of 36, and an expiratory time constant of 0.53, with a peak inspiratory pressure of 22 while receiving a tidal volume of 450 mL and 8 cm of PEEP. These values are essentially normal. The physical examination revealed no wheezing. A chest X-ray showed a possible left lower lobe infiltrate or small effusion. Agitation appears to be the limiting factor for weaning. Considering the significant improvement in respiratory mechanics and the absence of wheezing on physical examination, the IV steroid dose has been reduced to once daily. A sputum culture will be ordered to investigate the possibility of left lower lobe pneumonia. The patient is not currently on antibiotics. The case was discussed with the sintering press operator, and another weaning trial is planned for today. (2) Acute respiratory failure with hypoxia and hypercapnia: Code(s): J96.01 - Acute respiratory failure with hypoxia; J96.02 - Acute respiratory failure with hypercapnia Status: Acute (3) Obstructive sleep apnea: Code(s): G47.33 - Obstructive sleep apnea (adult) (pediatric) Status: Acute (4) Personal history of tobacco use: Code(s): Z87.891 - Personal history of nicotine dependence Status: Acute Subjective Date/time seen: 07/29/24 10:18 Interval history: Patient remains sedated and paralyzed on mechanical ventilation. Reportedly failed weaning trial yesterday. Afebrile while on tidal volume 450 peep of 8 and FiO2 45%. Review of Systems Review of Systems: All systems reviewed & are unremarkable except as noted in HPI and below ROS unobtainable: Yes unobtainable due to medical condition Exam Narrative: GENERAL APPEARANCE: Well developed, well nourished, sedated not opening eyes SKIN: Inspection of the skin reveals no rashes, ulcerations or petechiae. HEENT: Sclerae anicteric and conjunctivae pink and moist. NECK: Supple. There was no thyroid enlargement, and no tenderness, or masses were felt. CHEST: Normal AP diameter and normal contour without any kyphoscoliosis. LUNGS: Clear breath sounds anteriorly CARDIAC: There was a regular rate and rhythm without any murmurs, gallops, rubs. ABDOMEN: Soft and nontender with normal bowel sounds. There was no organomegaly. LYMPH NODES: No lymphadenopathy was appreciated in the neck.. EXTREMITIES: No cyanosis, clubbing or edema. NEUROLOGIC: Fully sedated on ventilation Objective Data Vital Signs Vital Signs: Vital Signs - 24 hr 07/28/24 10:25 07/28/24 10:07/28/24 11:52 Temperature Pulse Rate 68 68 66 Respiratory Rate 20 20 Blood Pressure Pulse Oximetry 96 Oxygen Delivery Mechanical Ventilation Fraction of Inspired Oxygen 50 07/28/24 12:00 07/28/24 12:00 07/28/24 12:00 Temperature 36.9 C Pulse Rate 67 63 Respiratory Rate 18 Blood Pressure 176/83 H Pulse Oximetry 96 Oxygen Delivery Fraction of Inspired Oxygen 50 07/28/24 12:00 07/28/24 12:00 07/28/24 12:00 Temperature Pulse Rate 67 67 Respiratory Rate 18 18 Blood Pressure Pulse Oximetry 96 Oxygen Delivery Mechanical Ventilation Fraction of Inspired Oxygen 50 07/28/24 13:35 07/28/24 13:35 07/28/24 13:56 Temperature Pulse Rate 63 63 70 Respiratory Rate 22 H 22 H 16 Blood Pressure Pulse Oximetry Oxygen Delivery Fraction of Inspired Oxygen 07/28/24 13:59 07/28/24 14:00 07/28/24 14:00 Temperature Pulse Rate 68 70 70 Respiratory Rate 22 H 22 H Blood Pressure Pulse Oximetry 96 Oxygen Delivery Mechanical Ventilation Fraction of Inspired Oxygen 50 07/28/24 14:00 07/28/24 14:00 07/28/24 14:00 Temperature 36.9 C Pulse Rate 70 70 70 Respiratory Rate 22 H 22 H Blood Pressure 176/92 H Pulse Oximetry 96 Oxygen Delivery Fraction of Inspired Oxygen 07/28/24 14:11 07/28/24 15:57 07/28/24 15:58 Temperature Pulse Rate 74 Respiratory Rate 19 Blood Pressure Pulse Oximetry 97 Oxygen Delivery Mechanical Ventilation Fraction of Inspired Oxygen 50 50 07/28/24 16:00 07/28/24 16:00 07/28/24 16:00 Temperature 37.1 C Pulse Rate 67 67 67 Respiratory Rate 22 H 22 H 22 H Blood Pressure 167/79 H Pulse Oximetry 97 Oxygen Delivery Fraction of Inspired Oxygen 07/28/24 16:00 07/28/24 16:32 07/28/24 16:58 Temperature Pulse Rate 74 65 59 L Respiratory Rate 26 H Blood Pressure Pulse Oximetry 96 Oxygen Delivery Mechanical Ventilation Fraction of Inspired Oxygen 50 07/28/24 17:50 07/28/24 17:50 07/28/24 17:50 Temperature Pulse Rate 55 L 55 L 55 L Respiratory Rate 18 18 18 Blood Pressure Pulse Oximetry Oxygen Delivery Fraction of Inspired Oxygen 07/28/24 17:50 07/28/24 18:00 07/28/24 18:00 Temperature 37.3 C Pulse Rate 55 L 55 L 55 L Respiratory Rate 18 22 H Blood Pressure 178/79 H Pulse Oximetry 96 Oxygen Delivery Fraction of Inspired Oxygen 07/28/24 18:00 07/28/24 18:00 07/28/24 19:00 Temperature Pulse Rate 55 L 55 L 59 L Respiratory Rate 18 18 20 Blood Pressure 185/82 H Pulse Oximetry 95 Oxygen Delivery Fraction of Inspired Oxygen 07/28/24 19:51 07/28/24 19:51 07/28/24 19:55 Temperature Pulse Rate 54 L 64 55 L Respiratory Rate 21 H 21 H Blood Pressure Pulse Oximetry 95 Oxygen Delivery Mechanical Ventilation Fraction of Inspired Oxygen 50 07/28/24 20:00 07/28/24 20:00 07/28/24 20:00 Temperature Pulse Rate 55 L 52 L Respiratory Rate 21 H Blood Pressure Pulse Oximetry 95 Oxygen Delivery Mechanical Ventilation Fraction of Inspired Oxygen 50 50 07/28/24 20:00 07/28/24 20:00 07/28/24 20:00 Temperature 37.4 C Pulse Rate 53 L 53 L 53 L Respiratory Rate 21 H 21 H 21 H Blood Pressure 151/68 H Pulse Oximetry 95 Oxygen Delivery Fraction of Inspired Oxygen 07/28/24 21:06 07/28/24 21:06 07/28/24 21:51 Temperature Pulse Rate 54 L 54 L 93 Respiratory Rate 22 H 22 H 30 H Blood Pressure Pulse Oximetry Oxygen Delivery Fraction of Inspired Oxygen 07/28/24 22:00 07/28/24 22:00 07/28/24 22:00 Temperature 37.4 C Pulse Rate 79 98 93 Respiratory Rate 30 H 30 H Blood Pressure 173/86 H Pulse Oximetry 97 Oxygen Delivery Fraction of Inspired Oxygen 07/28/24 22:00 07/28/24 23:05 07/28/24 23:55 Temperature Pulse Rate 93 62 61 Respiratory Rate 30 H 22 H Blood Pressure 175/100 H Pulse Oximetry 95 Oxygen Delivery Mechanical Ventilation Fraction of Inspired Oxygen 50 07/29/24 00:00 07/29/24 00:00 07/29/24 00:00 Temperature Pulse Rate 99 99 Respiratory Rate 35 H Blood Pressure Pulse Oximetry 95 Oxygen Delivery Mechanical Ventilation Fraction of Inspired Oxygen 50 50 07/29/24 00:00 07/29/24 00:00 07/29/24 00:19 Temperature 37.2 C Pulse Rate 99 99 99 Respiratory Rate 22 H 22 H 22 H Blood Pressure 175/106 H Pulse Oximetry 97 Oxygen Delivery Fraction of Inspired Oxygen 07/29/24 00:20 07/29/24 01:00 07/29/24 02:00 Temperature 37.4 C Pulse Rate 99 74 120 H Respiratory Rate 22 H 18 18 Blood Pressure 133/66 Pulse Oximetry 95 Oxygen Delivery Fraction of Inspired Oxygen 07/29/24 02:00 07/29/24 02:00 07/29/24 02:00 Temperature Pulse Rate 120 H 120 H 120 H Respiratory Rate 18 18 Blood Pressure Pulse Oximetry Oxygen Delivery Fraction of Inspired Oxygen 07/29/24 02:00 07/29/24 02:00 07/29/24 02:02 Temperature 37.2 C Pulse Rate 121 H 118 H 106 H Respiratory Rate 18 18 Blood Pressure 188/88 H 188/88 H Pulse Oximetry 97 97 Oxygen Delivery Mechanical Ventilation Fraction of Inspired Oxygen 50 07/29/24 02:02 07/29/24 03:15 07/29/24 03:15 Temperature Pulse Rate 106 H 118 H 118 H Respiratory Rate 18 18 18 Blood Pressure Pulse Oximetry Oxygen Delivery Fraction of Inspired Oxygen 07/29/24 04:00 07/29/24 04:00 07/29/24 04:00 Temperature Pulse Rate 64 64 Respiratory Rate 18 Blood Pressure Pulse Oximetry 96 Oxygen Delivery Mechanical Ventilation Fraction of Inspired Oxygen 50 50 07/29/24 04:00 07/29/24 04:00 07/29/24 04:00 Temperature 37.1 C Pulse Rate 64 64 64 Respiratory Rate 18 18 18 Blood Pressure 141/68 H Pulse Oximetry 98 Oxygen Delivery Fraction of Inspired Oxygen 07/29/24 04:00 07/29/24 04:31 07/29/24 06:00 Temperature Pulse Rate 66 64 91 Respiratory Rate 18 Blood Pressure 141/68 H Pulse Oximetry 96 Oxygen Delivery Mechanical Ventilation Fraction of Inspired Oxygen 50 07/29/24 06:00 07/29/24 06:00 07/29/24 06:00 Temperature 36.4 C Pulse Rate 91 91 91 Respiratory Rate 18 18 18 Blood Pressure 172/91 H Pulse Oximetry 96 Oxygen Delivery Fraction of Inspired Oxygen 07/29/24 06:00 07/29/24 06:00 07/29/24 06:00 Temperature Pulse Rate 91 91 90 Respiratory Rate 18 18 18 Blood Pressure 172/91 H Pulse Oximetry Oxygen Delivery Fraction of Inspired Oxygen 07/29/24 07:42 07/29/24 08:00 07/29/24 08:00 Temperature 36.3 C L Pulse Rate 60 58 L 58 L Respiratory Rate 18 18 18 Blood Pressure 148/74 H Pulse Oximetry 97 Oxygen Delivery Fraction of Inspired Oxygen 07/29/24 08:15 07/29/24 08:15 07/29/24 08:15 Temperature Pulse Rate 58 L 60 60 Respiratory Rate 18 18 Blood Pressure 153/75 H Pulse Oximetry 95 Oxygen Delivery Mechanical Ventilation Fraction of Inspired Oxygen 45 07/29/24 08:17 07/29/24 08:27 07/29/24 08:47 Temperature Pulse Rate 58 L 59 L 78 Respiratory Rate 18 18 25 H Blood Pressure Pulse Oximetry Oxygen Delivery Fraction of Inspired Oxygen 07/29/24 09:00 07/29/24 09:05 07/29/24 09:05 Temperature Pulse Rate 77 68 68 Respiratory Rate 21 H 18 19 Blood Pressure Pulse Oximetry Oxygen Delivery Fraction of Inspired Oxygen 07/29/24 09:13 07/29/24 09:19 07/29/24 09:20 Temperature Pulse Rate 91 65 66 Respiratory Rate 27 H 14 13 Blood Pressure Pulse Oximetry Oxygen Delivery Fraction of Inspired Oxygen 07/29/24 09:35 07/29/24 09:56 07/29/24 10:00 Temperature Pulse Rate 95 86 88 Respiratory Rate 28 H 29 H 22 H Blood Pressure Pulse Oximetry Oxygen Delivery Fraction of Inspired Oxygen Intake/Output Intake/Output: Intake & Output 07/26/24 07/27/24 07/28/24 07/29/24 23:59 23:59 23:59 23:59 Intake Total 2178.9 2510.5 2490.6 1366.2 Output Total 530 1775 2750 2980 Balance 1648.9 735.5 -259.4 -1613.8 Meds/Results Medications: Active Medications Generic Name Dose Route Start Last Admin Trade Name Freq PRN Reason Stop Dose Admin Acetaminophen 650 mg 07/25/24 19:51 Acetaminophen Elixir 325 Mg/10.15 Ml Udc PO Q6H PRN Mild Pain (1-3) or Fever Albuterol/Ipratropium 3 ml 07/26/24 14:00 07/29/24 08:12 Ipratropium 0.5 Mg/Albuterol Sulfate 2.5 Mg Ampul.Neb 3 Ml INHALATION 3 ml Q6HRT JOSEMANUEL Administration Atorvastatin Calcium 40 mg 07/27/24 09:00 07/29/24 08:05 Atorvastatin 40 Mg Tablet PO 40 mg DAILY JOSEMANUEL Administration Dextrose 12.5 gm 07/27/24 12:28 Dextrose 50% 25 Gm/50 Ml Syringe IV PUSH PRN PRN Hypoglycemia Protocol Enoxaparin Sodium 40 mg 07/26/24 09:00 07/29/24 08:05 Enoxaparin 40 Mg/0.4 Ml Syringe SUB-Q 40 mg DAILY JOSEMANUEL Administration Fluticasone/Umeclidinium/Vilanterol 1 puff 07/27/24 08:00 07/28/24 08:45 Fluticasone/Umeclidin/Vilanter 100-62.5-25 Mcg Ellipta INHALATION Not Given DAILYRT JOSEMANUEL Glucagon 1 mg 07/27/24 12:28 Glucagon For Inj 1 Mg Vial IM PRN PRN Hypoglycemia Protocol Glucose 15 gm 07/27/24 12:28 Glucose Oral Gel 15 Gm Of Glucse In 37.5 Gm Tube PO PRN PRN Hypoglycemia Protocol Hydralazine HCl 10 mg 07/25/24 19:41 07/29/24 00:51 Hydralazine Hcl 20 Mg/Ml Vial IV PUSH 10 mg Q8H PRN Administration BP greater than 180/90 Propofol 100 mls @ 10 mls/hr 07/25/24 23:05 07/29/24 10:00 Diprivan IV CONT 20.08 mcg/kg/min .Q10H JOSEMANUEL 10 mls/hr Titration Protocol 20.08 MCG/KG/MIN Norepinephrine Bitartrate 8 mg in 250 mls @ 9.375 mls/hr 07/26/24 14:40 07/27/24 21:17 Levophed 8 Mg/D5w 250 Ml IV CONT Not Given .Q24H JOSEMANUEL Protocol 5 MCG/MIN Dextrose 1,000 mls @ 100 mls/hr 07/27/24 12:28 Dextrose 5% 1,000 Ml IVPB PRN PRN Hypoglycemia Protocol Dexmedetomidine HCl 400 mcg in 100 mls @ 31.2 mls/hr 07/28/24 02:05 07/29/24 09:56 Precedex 400 Mcg/100 Ml IV CONT 1.5 mcg/kg/hr .Q3H13M JOSEMANUEL 31.2 mls/hr Administration Protocol 1.5 MCG/KG/HR Cisatracurium Besylate 200 mg/ 100 mls @ 0 mls/hr 07/28/24 23:05 07/29/24 08:15 Sodium Chloride IV CONT 0 mcg/kg/min .Q0M JOSEMANUEL 0 mls/hr Titration Protocol Fentanyl Citrate 2,500 mcg in 250 mls @ 0 mls/hr 07/29/24 08:20 07/29/24 09:20 Fentanyl 2,500 Mcg/Ns 250 Ml IV CONT 0 mcg/hr .Q0M JOSEMANUEL 0 mls/hr Titration Protocol 0 MCG/HR Insulin Aspart 3 - 6 units 07/27/24 13:00 07/29/24 08:06 Insulin Aspart (*Bkc) 100 Units/Ml SUB-Q 4 units Q4HR JOSEMANUEL Administration Protocol Insulin Glargine 10 units 07/29/24 09:00 07/29/24 08:04 Insulin Glargine (*Bkc) 100 Units/Ml SUB-Q 10 units QAM JOSEMANUEL Administration Loratadine 10 mg 07/26/24 09:51 07/29/24 08:05 Loratadine 10 Mg Tablet FEED TUBE 10 mg QAM JOSEMANUEL Administration Methylprednisolone Sodium Succinate 60 mg 07/30/24 09:00 Methylprednisolone Sod Succ 125 Mg Vial IV PUSH QAM JOSEMANUEL Midazolam HCl 4 mg 07/28/24 23:03 07/29/24 05:16 Midazolam Hcl (*Crx) 2 Mg/2 Ml Vial IV PUSH 4 mg Q1H PRN Administration Agitation Montelukast Sodium 10 mg 07/26/24 21:00 07/28/24 21:13 Montelukast Sodium 10 Mg Tablet PO 10 mg QHS JOSEMANUEL Administration Multi-Ingred Cream/Lotion/Oil/Oint 1 applic 07/29/24 09:00 07/29/24 09:09 Mineral Oil/White Petrolatum Ointment EACH EYE 1 applic Q12HR JOSEMANUEL Administration Pantoprazole Sodium 40 mg 07/26/24 09:55 07/29/24 08:05 Pantoprazole Sodium Iv 40 Mg Vial IV PUSH 40 mg QAM JOSEMANUEL Administration Sodium Chloride 20 ml 07/26/24 10:36 Central Line Flush IV PUSH PRN PRN after blood draws Sodium Chloride 10 ml 07/26/24 10:36 Central Line Flush IV PUSH PRN PRN with TPN bag changes Sodium Chloride 10 ml 07/26/24 14:00 07/29/24 08:08 Central Line Flush IV PUSH 10 ml Q8HR JOSEMANUEL Administration Radiology Results: ITS Impressions Abdomen X-Ray 07/25/24 16:47 IMPRESSION: 1. Endotracheal tube tip 1 cm above the jose. 2. No acute cardiopulmonary disease. 3. Nasogastric tube extends into the stomach with distal tip projecting near the level of the gastroesophageal junction. Unclear with only AP projections tube extends back into the gastroesophageal junction were positioned more anteriorly in the body but superimposed over the gastroesophageal junction. Consider obtaining an oblique or crosstable lateral view for more definitive determination. Chest CT 07/25/24 17:51 IMPRESSION: 1. Minimal bilateral basal atelectasis with minimal effusion. 2. Endotracheal tube with the tip at the jose. Retraction by 2 to 3 cm is advised. 3. Left kidney stone. Renal Ultrasound 07/27/24 14:10 IMPRESSION: 1. Normal kidneys without hydronephrosis. Chest X-Ray 07/29/24 06:52 IMPRESSION: Left basilar infiltrate is suspected with a small left-sided pleural effusion. Supportive lines and tubes in good position. Labs Labs: Laboratory Results - last 24 hr 07/28/24 07/28/24 07/28/24 12:09 16:23 21:06 WBC RBC Hgb Hct MCV MCH MCHC RDW Plt Count MPV Immature Gran % (Auto) Neut % (Auto) Lymph % (Auto) [place] % (Auto) Eos % (Auto) Baso % (Auto) Lymph # (Auto) [place] # (Auto) Eos # (Auto) Baso # (Auto) Abs Immat Gran (auto) Absolute Neuts (auto) Absolute Nucleated RBC Nucleated RBC % Puncture Site ABG pH ABG pCO2 ABG pO2 ABG PO2/FiO2 Ratio ABG HCO3 ABG O2 Saturation ABG O2 Content ABG Base Excess A-a Gradient Oxyhemoglobin Total Hemoglobin O2 Delivery Device O2 Liters/Min Minute Volume Vent Rate Vent Mode FiO2 Tidal Volume PEEP Peak Inspir Pressure Pressure Support Sodium Potassium Chloride Carbon Dioxide Anion Gap BUN Creatinine Estim Creat Clear Calc Estimated GFR Glucose POC Capillary Glucose 218 H 259 H 202 H Calcium Phosphorus Magnesium Total Bilirubin AST ALT Alkaline Phosphatase Total Protein Albumin Triglycerides 07/29/24 07/29/24 07/29/24 00:53 04:32 04:50 WBC 14.9 H RBC 4.60 Hgb 14.6 Hct 42.6 MCV 92.6 MCH 31.7 MCHC 34.3 RDW 13.2 Plt Count 237 MPV 9.3 Immature Gran % (Auto) 1.3 H Neut % (Auto) 85.4 H Lymph % (Auto) 4.7 L [place] % (Auto) 8.4 Eos % (Auto) 0.0 Baso % (Auto) 0.2 Lymph # (Auto) 0.70 L [place] # (Auto) 1.3 H Eos # (Auto) 0.0 Baso # (Auto) 0.0 Abs Immat Gran (auto) 0.19 H Absolute Neuts (auto) 12.7 H Absolute Nucleated RBC 0.000 Nucleated RBC % 0.0 Puncture Site Right radial ABG pH 7.386 ABG pCO2 45.9 H ABG pO2 114.9 H ABG PO2/FiO2 Ratio 2.30 ABG HCO3 26.9 H ABG O2 Saturation 98.1 ABG O2 Content 21.3 ABG Base Excess 1.3 A-a Gradient 190.0 Oxyhemoglobin 98.0 Total Hemoglobin 15.4 O2 Delivery Device Ventilator O2 Liters/Min Not Reportable Minute Volume Not Reportable Vent Rate 18 Vent Mode Cmv FiO2 50 Tidal Volume 450 PEEP 8 Peak Inspir Pressure Not Reportable Pressure Support Not Reportable Sodium 139 Potassium 4.5 Chloride 98 Carbon Dioxide 31 H Anion Gap 10 BUN 33 H Creatinine 0.91 Estim Creat Clear Calc 73 Estimated GFR > 60 Glucose 243 H POC Capillary Glucose 191 H Calcium 8.7 Phosphorus 4.8 H Magnesium 2.6 H Total Bilirubin 0.6 AST 28 ALT 35 Alkaline Phosphatase 109 Total Protein 7.0 Albumin 3.9 Triglycerides 254 H 07/29/24 07:26 WBC RBC Hgb Hct MCV MCH MCHC RDW Plt Count MPV Immature Gran % (Auto) Neut % (Auto) Lymph % (Auto) [place] % (Auto) Eos % (Auto) Baso % (Auto) Lymph # (Auto) [place] # (Auto) Eos # (Auto) Baso # (Auto) Abs Immat Gran (auto) Absolute Neuts (auto) Absolute Nucleated RBC Nucleated RBC % Puncture Site ABG pH ABG pCO2 ABG pO2 ABG PO2/FiO2 Ratio ABG HCO3 ABG O2 Saturation ABG O2 Content ABG Base Excess A-a Gradient Oxyhemoglobin Total Hemoglobin O2 Delivery Device O2 Liters/Min Minute Volume Vent Rate Vent Mode FiO2 Tidal Volume PEEP Peak Inspir Pressure Pressure Support Sodium Potassium Chloride Carbon Dioxide Anion Gap BUN Creatinine Estim Creat Clear Calc Estimated GFR Glucose POC Capillary Glucose 254 H Calcium Phosphorus Magnesium Total Bilirubin AST ALT Alkaline Phosphatase Total Protein Albumin Triglycerides
[2024-07-29 11:30] LABS: Glucose Point of Care 222 mg/dl (65-105)
[2024-07-29 11:40] LABS: Glucose Point of Care 251 mg/dl (65-105)
--- NOTE | 2024-07-29 15:32 | PM.IMPN ---
Progress Note: A&P Assessment and Plan (1) Acute respiratory failure with hypoxia and hypercapnia: Code(s): J96.01 - Acute respiratory failure with hypoxia; J96.02 - Acute respiratory failure with hypercapnia Status: Acute Assessment and Plan: Acute hypoxic and hypercarbic respiratory failure which appears to be secondary to status asthmaticus. Patient has history of allergic asthma and his presentation is consistent. Patient may also have mild underlying COPD considering his long history of smoking but has not been officially diagnosed. CT scan did not show any infiltrates and procalcitonin level was low suggesting against any pneumonia Currently intubated and on mechanical ventilation. Patient was heavily sedated. Patient was still asynchronous with ventilator and was given rocuronium and started on Nimbex infusion 07/27 patient's Nimbex infusion was discontinued and sedation was lowered. As the sedation wore off patient became more tachypneic with asynchrony with the ventilator. At that time patient had high peak pressures and bilateral wheezing. Patient was started back on sedation and had to BT paralyzed. 07/28 pause Nimbex infusion. Will try to wean off sedation and evaluate for weaning trial today. Hold further fluids 07/29 patient has been exhibiting dynamic airway obstruction. When sedated and paralyzed clearly his airway pressures are low, no wheezing. When paralytics are discontinued in sedation is lowered patient becomes tachypneic, asynchronous with ventilator leading to high peak pressures and wheezing on exam.. I have him on Precedex infusion for anxiolysis. I will again discontinue Nimbex infusion and then lower propofol. Depending on how he responds will evaluate for weaning trial. Chest x-ray, ABG Ventilator settings reviewed. Continue Solu-Medrol but decrease dose to daily, scheduled bronchodilators contain Claritin Hold antibiotics discussed with pulmonary (2) Hypertension: Qualifiers: Hypertension type: primary hypertension Qualified Code(s): I10 - Essential (primary) hypertension Code(s): I10 - Essential (primary) hypertension Status: Chronic Assessment and Plan: Patient blood pressure is now soft secondary to sedation. Hold antihypertensive medications (3) Allergic asthma: Qualifiers: Asthma severity: severe Asthma persistence: persistent Asthma complication type: with acute exacerbation Qualified Code(s): J45.51 - Severe persistent asthma with (acute) exacerbation Code(s): J45.909 - Unspecified asthma, uncomplicated Status: Acute Assessment and Plan: See above (4) COPD (chronic obstructive pulmonary disease): Qualifiers: COPD type: unspecified COPD Qualified Code(s): J44.9 - Chronic obstructive pulmonary disease, unspecified Code(s): J44.9 - Chronic obstructive pulmonary disease, unspecified Status: Acute Assessment and Plan: See above (5) Obstructive sleep apnea: Code(s): G47.33 - Obstructive sleep apnea (adult) (pediatric) Status: Acute Assessment and Plan: Currently intubated and on mechanical ventilation (6) Status asthmaticus: Code(s): J45.902 - Unspecified asthma with status asthmaticus Status: Acute Assessment and Plan: See above (7) GRACIELA (acute kidney injury): Code(s): N17.9 - Acute kidney failure, unspecified Status: Acute Assessment and Plan: patient developed GRACIELA. His creatinine yesterday was 2.18. Likely secondary to hypotension vs hypovolemia patient was given IV fluids and creatinine has improved and now normalized Normal renal ultrasound, CK was mildly elevate monitor urine output electrolytes and creatinine Patient has been on IV fluids. I will hold further IV fluids at this time Subjective Date/time seen: 07/29/24 15:32 Interval history: Patient failed SBT. Events intubated and management as per ICU Review of Systems Review of Systems: All systems reviewed & are unremarkable except as noted in HPI and below ROS unobtainable: Yes unobtainable due to endotracheal tube, unobtainable due to medical condition and unobtainable due to mental status Exam Narrative: General: Pt is sedated, intubated and on mechanical ventilation Lungs/Chest: Trachea central nol wheezing, Improved overall air movement, no wheezing when patient is paralyzed, Vent paralytics are off patient become a synchronous with the vent and has bilateral wheezing on exam Cardiac: RRR. Normal S1 S2. No murmurs Circulation: Pedal pulses are intact and symmetrical. Abdomen: Decreased bowel sounds. Obese. Soft. NT. ND. Extremities: No clubbing, cyanosis or edema. Warm : Garcia in place Neurologic: Unable to assess due to sedation and chemical paralysis PERRL Paralysed with nimbex Const: General: in distress and uncomfortable Other: , male, ill-appearing, significant respiratory distress HENMT: Face/Nose/Sinus: Normal nares present Mouth: Yes dry mucous membranes Eyes: General: appearance normal, both eyes and all related structures Sclera: sclerae normal Pupils: Equal, round and reactive pupils present EOM: EOMs intact bilaterally Resp: Other: BiPAP in place, tolerating okay. Intermittent coughing requiring removal of BiPAP mask. Significant tachypnea with subcostal retractions. Minimal air movement in all lung koch with faint consistent expiratory wheeze. No crackles or rhonchi. Cardio: Rate: tachycardic Rhythm: regular rhythm Other: S1-S2 present without murmur, rub, ectopy GI: Other: Abdomen soft, nondistended, nontender. Normoactive bowel sounds in all quadrants. Skin: General skin exam: normal color and no rashes or lesions noted Wounds: no wounds Neuro: Cranial nerves: Yes Equal, round and reactive pupils present Speech: normal speech Motor exam (neuro): 5/5 motor strength present throughout Sensory Exam: normal sensation Other: A&O x4. However somnolent/fatigued. Extrem: General: normal to inspection Psych: Mental Status: mental status grossly normal Affect: normal affect Other: Good insight and judgment, pleasant Objective Data Vital Signs Vital Signs: Vital Signs - 24 hr 07/28/24 15:57 07/28/24 15:58 07/28/24 16:00 Temperature Pulse Rate 67 Respiratory Rate 22 H Blood Pressure Pulse Oximetry 97 Oxygen Delivery Mechanical Ventilation Fraction of Inspired Oxygen 50 50 07/28/24 16:00 07/28/24 16:00 07/28/24 16:00 Temperature 98.7 F Pulse Rate 67 67 74 Respiratory Rate 22 H 22 H Blood Pressure 167/79 H Pulse Oximetry 97 Oxygen Delivery Fraction of Inspired Oxygen 07/28/24 16:32 07/28/24 16:58 07/28/24 17:50 Temperature Pulse Rate 65 59 L 55 L Respiratory Rate 26 H 18 Blood Pressure Pulse Oximetry 96 Oxygen Delivery Mechanical Ventilation Fraction of Inspired Oxygen 50 07/28/24 17:50 07/28/24 17:50 07/28/24 17:50 Temperature Pulse Rate 55 L 55 L 55 L Respiratory Rate 18 18 18 Blood Pressure Pulse Oximetry Oxygen Delivery Fraction of Inspired Oxygen 07/28/24 18:00 07/28/24 18:00 07/28/24 18:00 Temperature 99.2 F Pulse Rate 55 L 55 L 55 L Respiratory Rate 22 H 18 Blood Pressure 178/79 H Pulse Oximetry 96 Oxygen Delivery Fraction of Inspired Oxygen 07/28/24 18:00 07/28/24 19:00 07/28/24 19:51 Temperature Pulse Rate 55 L 59 L 54 L Respiratory Rate 18 20 Blood Pressure 185/82 H Pulse Oximetry 95 95 Oxygen Delivery Mechanical Ventilation Fraction of Inspired Oxygen 50 07/28/24 19:51 07/28/24 19:55 07/28/24 20:00 Temperature Pulse Rate 64 55 L 55 L Respiratory Rate 21 H 21 H 21 H Blood Pressure Pulse Oximetry 95 Oxygen Delivery Mechanical Ventilation Fraction of Inspired Oxygen 50 07/28/24 20:00 07/28/24 20:00 07/28/24 20:00 Temperature 99.3 F Pulse Rate 52 L 53 L Respiratory Rate 21 H Blood Pressure 151/68 H Pulse Oximetry 95 Oxygen Delivery Fraction of Inspired Oxygen 50 07/28/24 20:00 07/28/24 20:00 07/28/24 21:06 Temperature Pulse Rate 53 L 53 L 54 L Respiratory Rate 21 H 21 H 22 H Blood Pressure Pulse Oximetry Oxygen Delivery Fraction of Inspired Oxygen 07/28/24 21:06 07/28/24 21:51 07/28/24 22:00 Temperature Pulse Rate 54 L 93 79 Respiratory Rate 22 H 30 H Blood Pressure Pulse Oximetry Oxygen Delivery Fraction of Inspired Oxygen 07/28/24 22:00 07/28/24 22:00 07/28/24 22:00 Temperature 99.3 F Pulse Rate 98 93 93 Respiratory Rate 30 H 30 H 30 H Blood Pressure 173/86 H Pulse Oximetry 97 Oxygen Delivery Fraction of Inspired Oxygen 07/28/24 23:05 07/28/24 23:55 07/29/24 00:00 Temperature Pulse Rate 62 61 99 Respiratory Rate 22 H 35 H Blood Pressure 175/100 H Pulse Oximetry 95 95 Oxygen Delivery Mechanical Ventilation Mechanical Ventilation Fraction of Inspired Oxygen 50 50 07/29/24 00:00 07/29/24 00:00 07/29/24 00:00 Temperature 99 F Pulse Rate 99 99 Respiratory Rate 22 H Blood Pressure 175/106 H Pulse Oximetry 97 Oxygen Delivery Fraction of Inspired Oxygen 50 07/29/24 00:00 07/29/24 00:19 07/29/24 00:20 Temperature Pulse Rate 99 99 99 Respiratory Rate 22 H 22 H 22 H Blood Pressure Pulse Oximetry Oxygen Delivery Fraction of Inspired Oxygen 07/29/24 01:00 07/29/24 02:00 07/29/24 02:00 Temperature 99.4 F Pulse Rate 74 120 H 120 H Respiratory Rate 18 18 18 Blood Pressure 133/66 Pulse Oximetry 95 Oxygen Delivery Fraction of Inspired Oxygen 07/29/24 02:00 07/29/24 02:00 07/29/24 02:00 Temperature 98.9 F Pulse Rate 120 H 120 H 121 H Respiratory Rate 18 18 Blood Pressure 188/88 H Pulse Oximetry 97 Oxygen Delivery Fraction of Inspired Oxygen 07/29/24 02:00 07/29/24 02:02 07/29/24 02:02 Temperature Pulse Rate 118 H 106 H 106 H Respiratory Rate 18 18 Blood Pressure 188/88 H Pulse Oximetry 97 Oxygen Delivery Mechanical Ventilation Fraction of Inspired Oxygen 50 07/29/24 03:15 07/29/24 03:15 07/29/24 04:00 Temperature Pulse Rate 118 H 118 H 64 Respiratory Rate 18 18 18 Blood Pressure Pulse Oximetry 96 Oxygen Delivery Mechanical Ventilation Fraction of Inspired Oxygen 50 07/29/24 04:00 07/29/24 04:00 07/29/24 04:00 Temperature 98.8 F Pulse Rate 64 64 Respiratory Rate 18 Blood Pressure 141/68 H Pulse Oximetry 98 Oxygen Delivery Fraction of Inspired Oxygen 50 07/29/24 04:00 07/29/24 04:00 07/29/24 04:00 Temperature Pulse Rate 64 64 66 Respiratory Rate 18 18 18 Blood Pressure 141/68 H Pulse Oximetry Oxygen Delivery Fraction of Inspired Oxygen 07/29/24 04:31 07/29/24 06:00 07/29/24 06:00 Temperature 97.6 F Pulse Rate 64 91 91 Respiratory Rate 18 Blood Pressure 172/91 H Pulse Oximetry 96 96 Oxygen Delivery Mechanical Ventilation Fraction of Inspired Oxygen 50 07/29/24 06:00 07/29/24 06:00 07/29/24 06:00 Temperature Pulse Rate 91 91 91 Respiratory Rate 18 18 18 Blood Pressure Pulse Oximetry Oxygen Delivery Fraction of Inspired Oxygen 07/29/24 06:00 07/29/24 06:00 07/29/24 07:42 Temperature 97.4 F L Pulse Rate 91 90 60 Respiratory Rate 18 18 18 Blood Pressure 172/91 H 148/74 H Pulse Oximetry 97 Oxygen Delivery Fraction of Inspired Oxygen 07/29/24 08:00 07/29/24 08:00 07/29/24 08:00 Temperature Pulse Rate 58 L 58 L Respiratory Rate 18 18 Blood Pressure Pulse Oximetry Oxygen Delivery Mechanical Ventilation Fraction of Inspired Oxygen 50 07/29/24 08:00 07/29/24 08:00 07/29/24 08:15 Temperature Pulse Rate 58 L 58 L Respiratory Rate 18 Blood Pressure 153/75 H Pulse Oximetry Oxygen Delivery Fraction of Inspired Oxygen 50 07/29/24 08:15 07/29/24 08:15 07/29/24 08:17 Temperature Pulse Rate 60 60 58 L Respiratory Rate 18 18 Blood Pressure Pulse Oximetry 95 Oxygen Delivery Mechanical Ventilation Fraction of Inspired Oxygen 45 07/29/24 08:27 07/29/24 08:47 07/29/24 09:00 Temperature Pulse Rate 59 L 78 77 Respiratory Rate 18 25 H 21 H Blood Pressure Pulse Oximetry Oxygen Delivery Fraction of Inspired Oxygen 07/29/24 09:05 07/29/24 09:05 07/29/24 09:13 Temperature Pulse Rate 68 68 91 Respiratory Rate 18 19 27 H Blood Pressure Pulse Oximetry Oxygen Delivery Fraction of Inspired Oxygen 07/29/24 09:19 07/29/24 09:20 07/29/24 09:35 Temperature Pulse Rate 65 66 95 Respiratory Rate 14 13 28 H Blood Pressure Pulse Oximetry Oxygen Delivery Fraction of Inspired Oxygen 07/29/24 09:56 07/29/24 10:00 07/29/24 10:00 Temperature Pulse Rate 86 88 88 Respiratory Rate 29 H 22 H Blood Pressure Pulse Oximetry Oxygen Delivery Fraction of Inspired Oxygen 07/29/24 10:00 07/29/24 10:15 07/29/24 10:15 Temperature 97.4 F L Pulse Rate 63 70 71 Respiratory Rate 20 38 H 38 H Blood Pressure 161/84 H Pulse Oximetry 96 Oxygen Delivery Fraction of Inspired Oxygen 07/29/24 10:23 07/29/24 10:23 07/29/24 10:35 Temperature Pulse Rate 90 71 63 Respiratory Rate 18 18 Blood Pressure Pulse Oximetry 96 Oxygen Delivery Mechanical Ventilation Fraction of Inspired Oxygen 45 07/29/24 10:45 07/29/24 11:30 07/29/24 11:42 Temperature 97.8 F Pulse Rate 64 81 Respiratory Rate 16 Blood Pressure 192/74 H Pulse Oximetry 97 95 Oxygen Delivery Mechanical Ventilation Mechanical Ventilation Fraction of Inspired Oxygen 45 45 07/29/24 12:00 07/29/24 12:00 07/29/24 12:00 Temperature Pulse Rate 71 65 Respiratory Rate 18 Blood Pressure Pulse Oximetry Oxygen Delivery Fraction of Inspired Oxygen 50 07/29/24 12:00 07/29/24 12:00 07/29/24 12:54 Temperature Pulse Rate 64 64 62 Respiratory Rate 15 15 17 Blood Pressure Pulse Oximetry Oxygen Delivery Fraction of Inspired Oxygen 07/29/24 12:54 07/29/24 13:40 07/29/24 13:40 Temperature Pulse Rate 79 61 61 Respiratory Rate 17 21 H Blood Pressure Pulse Oximetry 95 Oxygen Delivery Mechanical Ventilation Fraction of Inspired Oxygen 45 07/29/24 13:53 07/29/24 13:54 07/29/24 14:00 Temperature Pulse Rate 67 67 70 Respiratory Rate 18 18 Blood Pressure Pulse Oximetry Oxygen Delivery Fraction of Inspired Oxygen 07/29/24 14:00 07/29/24 14:00 07/29/24 14:00 Temperature 98.3 F Pulse Rate 70 66 65 Respiratory Rate 17 17 17 Blood Pressure 157/77 H Pulse Oximetry 96 Oxygen Delivery Fraction of Inspired Oxygen 07/29/24 14:38 Temperature Pulse Rate 65 Respiratory Rate 18 Blood Pressure Pulse Oximetry Oxygen Delivery Fraction of Inspired Oxygen Intake/Output Intake/Output: Intake & Output 07/26/24 07/27/24 07/28/24 07/29/24 23:59 23:59 23:59 23:59 Intake Total 2178.9 2510.5 2490.6 1677.3 Output Total 530 1775 2750 2980 Balance 1648.9 735.5 -259.4 -1302.7 Meds/Results Medications: Active Medications Generic Name Dose Route Start Last Admin Trade Name Freq PRN Reason Stop Dose Admin Acetaminophen 650 mg 07/25/24 19:51 Acetaminophen Elixir 325 Mg/10.15 Ml Udc PO Q6H PRN Mild Pain (1-3) or Fever Albuterol/Ipratropium 3 ml 07/26/24 14:00 07/29/24 13:40 Ipratropium 0.5 Mg/Albuterol Sulfate 2.5 Mg Ampul.Neb 3 Ml INHALATION 3 ml Q6HRT JOSEMANUEL Administration Atorvastatin Calcium 40 mg 07/27/24 09:00 07/29/24 08:05 Atorvastatin 40 Mg Tablet PO 40 mg DAILY JOSEMANUEL Administration Dextrose 12.5 gm 07/27/24 12:28 Dextrose 50% 25 Gm/50 Ml Syringe IV PUSH PRN PRN Hypoglycemia Protocol Enoxaparin Sodium 40 mg 07/26/24 09:00 07/29/24 08:05 Enoxaparin 40 Mg/0.4 Ml Syringe SUB-Q 40 mg DAILY JOSEMANUEL Administration Fluticasone/Umeclidinium/Vilanterol 1 puff 07/27/24 08:00 07/28/24 08:45 Fluticasone/Umeclidin/Vilanter 100-62.5-25 Mcg Ellipta INHALATION Not Given DAILYRT JOSEMANUEL Glucagon 1 mg 07/27/24 12:28 Glucagon For Inj 1 Mg Vial IM PRN PRN Hypoglycemia Protocol Glucose 15 gm 07/27/24 12:28 Glucose Oral Gel 15 Gm Of Glucse In 37.5 Gm Tube PO PRN PRN Hypoglycemia Protocol Hydralazine HCl 10 mg 07/25/24 19:41 07/29/24 00:51 Hydralazine Hcl 20 Mg/Ml Vial IV PUSH 10 mg Q8H PRN Administration BP greater than 180/90 Propofol 100 mls @ 10 mls/hr 07/25/24 23:05 07/29/24 13:54 Diprivan IV CONT 100.4 mcg/kg/min .Q10H JOSEMANUEL 50 mls/hr Administration Protocol 20.08 MCG/KG/MIN Norepinephrine Bitartrate 8 mg in 250 mls @ 9.375 mls/hr 07/26/24 14:40 07/27/24 21:17 Levophed 8 Mg/D5w 250 Ml IV CONT Not Given .Q24H JOSEMANUEL Protocol 5 MCG/MIN Dextrose 1,000 mls @ 100 mls/hr 07/27/24 12:28 Dextrose 5% 1,000 Ml IVPB PRN PRN Hypoglycemia Protocol Dexmedetomidine HCl 400 mcg in 100 mls @ 31.2 mls/hr 07/28/24 02:05 07/29/24 14:00 Precedex 400 Mcg/100 Ml IV CONT 1.5 mcg/kg/hr .Q3H13M JOSEMANUEL 31.2 mls/hr Titration Protocol 1.5 MCG/KG/HR Cisatracurium Besylate 200 mg/ 100 mls @ 0 mls/hr 07/28/24 23:05 07/29/24 08:15 Sodium Chloride IV CONT 0 mcg/kg/min .Q0M JOSEMANUEL 0 mls/hr Titration Protocol Fentanyl Citrate 2,500 mcg in 250 mls @ 20 mls/hr 07/29/24 08:20 07/29/24 14:00 Fentanyl 2,500 Mcg/Ns 250 Ml IV CONT 200 mcg/hr .[id number] JOSEMANUEL 20 mls/hr Titration Protocol 200 MCG/HR Insulin Aspart 3 - 6 units 07/27/24 13:00 07/29/24 11:59 Insulin Aspart (*Bkc) 100 Units/Ml SUB-Q 4 units Q4HR JOSEMANUEL Administration Protocol Insulin Glargine 10 units 07/29/24 09:00 07/29/24 08:04 Insulin Glargine (*Bkc) 100 Units/Ml SUB-Q 10 units QAM JOSEMANUEL Administration Loratadine 10 mg 07/26/24 09:51 07/29/24 08:05 Loratadine 10 Mg Tablet FEED TUBE 10 mg QAM JOSEMANUEL Administration Methylprednisolone Sodium Succinate 60 mg 07/30/24 09:00 Methylprednisolone Sod Succ 125 Mg Vial IV PUSH QAM JOSEMANUEL Midazolam HCl 4 mg 07/28/24 23:03 07/29/24 10:19 Midazolam Hcl (*Crx) 2 Mg/2 Ml Vial IV PUSH 4 mg Q1H PRN Administration Agitation Montelukast Sodium 10 mg 07/26/24 21:00 07/28/24 21:13 Montelukast Sodium 10 Mg Tablet PO 10 mg QHS JOSEMANUEL Administration Multi-Ingred Cream/Lotion/Oil/Oint 1 applic 07/29/24 09:00 07/29/24 09:09 Mineral Oil/White Petrolatum Ointment EACH EYE 1 applic Q12HR JOSEMANUEL Administration Pantoprazole Sodium 40 mg 07/26/24 09:55 07/29/24 08:05 Pantoprazole Sodium Iv 40 Mg Vial IV PUSH 40 mg QAM JOSEMANUEL Administration Sodium Chloride 20 ml 07/26/24 10:36 Central Line Flush IV PUSH PRN PRN after blood draws Sodium Chloride 10 ml 07/26/24 10:36 Central Line Flush IV PUSH PRN PRN with TPN bag changes Sodium Chloride 10 ml 07/26/24 14:00 07/29/24 12:09 Central Line Flush IV PUSH 10 ml Q8HR JOSEMANUEL Administration Radiology Results: ITS Impressions Abdomen X-Ray 07/25/24 16:47 IMPRESSION: 1. Endotracheal tube tip 1 cm above the jose. 2. No acute cardiopulmonary disease. 3. Nasogastric tube extends into the stomach with distal tip projecting near the level of the gastroesophageal junction. Unclear with only AP projections tube extends back into the gastroesophageal junction were positioned more anteriorly in the body but superimposed over the gastroesophageal junction. Consider obtaining an oblique or crosstable lateral view for more definitive determination. Chest CT 07/25/24 17:51 IMPRESSION: 1. Minimal bilateral basal atelectasis with minimal effusion. 2. Endotracheal tube with the tip at the jose. Retraction by 2 to 3 cm is advised. 3. Left kidney stone. Renal Ultrasound 07/27/24 14:10 IMPRESSION: 1. Normal kidneys without hydronephrosis. Chest X-Ray 07/29/24 06:52 IMPRESSION: Left basilar infiltrate is suspected with a small left-sided pleural effusion. Supportive lines and tubes in good position. Labs Labs: Laboratory Results - last 24 hr 07/27/24 07/28/24 07/28/24 16:19 16:23 21:06 WBC RBC Hgb Hct MCV MCH MCHC RDW Plt Count MPV Immature Gran % (Auto) Neut % (Auto) Lymph % (Auto) [place] % (Auto) Eos % (Auto) Baso % (Auto) Lymph # (Auto) [place] # (Auto) Eos # (Auto) Baso # (Auto) Abs Immat Gran (auto) Absolute Neuts (auto) Absolute Nucleated RBC Nucleated RBC % Puncture Site ABG pH ABG pCO2 ABG pO2 ABG PO2/FiO2 Ratio ABG HCO3 ABG O2 Saturation ABG O2 Content ABG Base Excess A-a Gradient Oxyhemoglobin Total Hemoglobin O2 Delivery Device O2 Liters/Min Minute Volume Vent Rate Vent Mode FiO2 Tidal Volume PEEP Peak Inspir Pressure Pressure Support Sodium Potassium Chloride Carbon Dioxide Anion Gap BUN Creatinine Estim Creat Clear Calc Estimated GFR Glucose POC Capillary Glucose 222 H 259 H 202 H Calcium Phosphorus Magnesium Total Bilirubin AST ALT Alkaline Phosphatase Total Protein Albumin Triglycerides 07/29/24 07/29/24 07/29/24 00:53 04:32 04:50 WBC 14.9 H RBC 4.60 Hgb 14.6 Hct 42.6 MCV 92.6 MCH 31.7 MCHC 34.3 RDW 13.2 Plt Count 237 MPV 9.3 Immature Gran % (Auto) 1.3 H Neut % (Auto) 85.4 H Lymph % (Auto) 4.7 L [place] % (Auto) 8.4 Eos % (Auto) 0.0 Baso % (Auto) 0.2 Lymph # (Auto) 0.70 L [place] # (Auto) 1.3 H Eos # (Auto) 0.0 Baso # (Auto) 0.0 Abs Immat Gran (auto) 0.19 H Absolute Neuts (auto) 12.7 H Absolute Nucleated RBC 0.000 Nucleated RBC % 0.0 Puncture Site Right radial ABG pH 7.386 ABG pCO2 45.9 H ABG pO2 114.9 H ABG PO2/FiO2 Ratio 2.30 ABG HCO3 26.9 H ABG O2 Saturation 98.1 ABG O2 Content 21.3 ABG Base Excess 1.3 A-a Gradient 190.0 Oxyhemoglobin 98.0 Total Hemoglobin 15.4 O2 Delivery Device Ventilator O2 Liters/Min Not Reportable Minute Volume Not Reportable Vent Rate 18 Vent Mode Cmv FiO2 50 Tidal Volume 450 PEEP 8 Peak Inspir Pressure Not Reportable Pressure Support Not Reportable Sodium 139 Potassium 4.5 Chloride 98 Carbon Dioxide 31 H Anion Gap 10 BUN 33 H Creatinine 0.91 Estim Creat Clear Calc 73 Estimated GFR > 60 Glucose 243 H POC Capillary Glucose 191 H Calcium 8.7 Phosphorus 4.8 H Magnesium 2.6 H Total Bilirubin 0.6 AST 28 ALT 35 Alkaline Phosphatase 109 Total Protein 7.0 Albumin 3.9 Triglycerides 254 H 07/29/24 07/29/24 07:26 11:31 WBC RBC Hgb Hct MCV MCH MCHC RDW Plt Count MPV Immature Gran % (Auto) Neut % (Auto) Lymph % (Auto) [place] % (Auto) Eos % (Auto) Baso % (Auto) Lymph # (Auto) [place] # (Auto) Eos # (Auto) Baso # (Auto) Abs Immat Gran (auto) Absolute Neuts (auto) Absolute Nucleated RBC Nucleated RBC % Puncture Site ABG pH ABG pCO2 ABG pO2 ABG PO2/FiO2 Ratio ABG HCO3 ABG O2 Saturation ABG O2 Content ABG Base Excess A-a Gradient Oxyhemoglobin Total Hemoglobin O2 Delivery Device O2 Liters/Min Minute Volume Vent Rate Vent Mode FiO2 Tidal Volume PEEP Peak Inspir Pressure Pressure Support Sodium Potassium Chloride Carbon Dioxide Anion Gap BUN Creatinine Estim Creat Clear Calc Estimated GFR Glucose POC Capillary Glucose 254 H 251 H Calcium Phosphorus Magnesium Total Bilirubin AST ALT Alkaline Phosphatase Total Protein Albumin Triglycerides Quality VTE Prophylaxis VTE prophylaxis: pharmacologic ordered Hospitalist MIPS Advance Care Plan I have confirmed that the patient's Advanced Care Plan is present, code status is documented, or surrogate decision maker is listed in patient medical record.: Yes Medication Reconciliation I have utilized all available resources to obtain, update and review the patients current medications (includes all prescriptions, OTC, herbals, cannabis, and nutritional supplements).: Yes
[2024-07-29 16:54] LABS: Glucose Point of Care 387 mg/dl (65-105)
[2024-07-29 20:08] LABS: Glucose Point of Care 256 mg/dl (65-105)
[2024-07-29] MEDS: MONTELUKAST SODIUM 10 MG TABLET PO (20:41)
[2024-07-29] MEDS: FENTANYL 2,500MCG/NS250ML(*CRX 2,500 MCG/250 ML BAG 20 MCG IV CONT (21:48)
[2024-07-30] VITALS (49 sets, daily range): BP systolic 116–161; BP diastolic 66–83; PULSE 53–100; RESP 11–35; TEMP 37.3–38.3; O2SAT 91–98
[2024-07-30 00:03] LABS: Glucose Point of Care 199 mg/dl (65-105)
[2024-07-30] MEDS: dexmedeTOMIDine 400 MCG/100 ML 400 MCG/100 ML BAG 31.2 MCG IV CONT ×7 (01:16→20:56)
[2024-07-30] MEDS: PROPOFOL IV EMULSION 100 ML 24.9 MG IV CONT ×6 (01:18→20:55)
[2024-07-30] MEDS: IPRATROPIUM 0.5 MG/ALBUTEROL SULFATE 2.5 MG AMPUL.NEB 3 ML INHALATION ×4 (02:31→20:56)
[2024-07-30 04:06] LABS: Glucose Point of Care 185 mg/dl (65-105)
[2024-07-30 04:30] LABS: Basophils Percent Auto 0.2 % (0.2-1.2); Eosinophils Absolute Auto 0.1 K/mm3 (0-0.3); Eosinophils Percent Auto 0.7 % (0-4.4); Hematocrit 44.2 % (42.0-52.0); Hemoglobin 15.1 g/dL (14.0-18.0); Immature Granulocyte Absolute 0.18 K/mm3 (0.00-0.031); Immature Granulocyte Percent A 1.2 % (0-0.5); Mean Corpuscular HGB Conc 34.2 g/dl (32-36); Mean Corpuscular Hemoglobin 31.5 pg (26-34); Mean Corpuscular Volume 92.1 fl (80-100); Mean Platelet Volume 9.3 fl (7.4-10.4); Monocytes Absolute Auto 1.5 K/mm3 (0.1-0.6); Monocytes Percent Auto 9.7 % (2.6-8.5); Neutrophils Absolute Auto 10.3 K/mm3 (1.3-6.7); Neutrophils Percent Auto 68.2 % (45.5-73.1); Nucleated Red Blood Cells Perc 0.1 % (0.0-0.2); Platelet Count Result 237 k/mm3 (150-375)
[2024-07-30] MEDS: MIDAZOLAM HCL (*CRX) 2 MG/2 ML VIAL 4 MG IV PUSH ×4 (04:50→19:59)
[2024-07-30 05:03] LABS: Alanine Aminotransferase 47 U/L (6-50); Albumin Level 3.6 g/dL (3.5-5.1); Alkaline Phosphatase 104 U/L (38-126); Anion Gap 8 mmol/L (4-12); Aspartate Amino Transferase 31 U/L (17-59); Bilirubin,Total 0.5 mg/dL (0.2-1.3); Blood Urea Nitrogen 31 mg/dL (9-20); Calcium 8.8 mg/dL (8.4-10.2); Carbon Dioxide 31 mmol/L (22-30); Chloride 100 mmol/L (98-107); Estimated CRCL calculation 77 ml/min; Estimated Glomerular Filt Rate > 60; Glucose 166 mg/dL (65-110); Magnesium 2.7 mg/dL (1.6-2.3); Phosphorus 3.8 mg/dL (2.5-4.5); Sodium 139 mmol/L (137-145)
[2024-07-30] MEDS: CENTRAL LINE FLUSH 10 ML IV PUSH ×3 (05:26→20:00)
[2024-07-30 06:29] LABS: pH ABG 7.435 (7.350-7.450)
[2024-07-30 06:30] LABS: Base Excess ABG 5.5 mEq/l (+/-2.0); HCO3 ABG 30.8 mEq/l (22.0-26.0); PCO2 ABG 46.9 mmHg (35.0-45.0); PO2 ABG 61.3 mmHg (80.0-100.0); Total Hemoglobin 15.7 g/dL (12.0-18.0)
[2024-07-30 06:31] LABS: Alveolar/Arterial O2 Gradient 206.2 mmHg
[2024-07-30 06:32] LABS: Fractional Inspired Oxygen 45 %; Oxygen Content ABG 19.9 %vol (16.0-22.0); Oxyhemoglobin 90.2 % THb (90.0-100.0); PO2 FiO2 Ratio Arterial Blood 1.36 %
[2024-07-30 06:33] LABS: Arterial Blood Gas Vent Mode CMV; Arterial Blood Gas Ventilator rate 18 /MIN; Device VENTILATOR; Modified Allen's Test Pass; Site Drawn LEFT RADIAL
[2024-07-30 06:34] LABS: Arterial Blood Gas PEEP 8 cmH2O; Arterial Blood Gas Tidal Volume 450 ml
[2024-07-30 07:45] LABS: Glucose Point of Care 173 mg/dl (65-105)
[2024-07-30] MEDS: MINERAL OIL/WHITE PETROLATUM OINTMENT 1 APPLIC EACH EYE ×2 (09:20→20:00)
[2024-07-30] MEDS: PANTOPRAZOLE SODIUM IV 40 MG VIAL IV PUSH (09:20)
[2024-07-30] MEDS: ATORVASTATIN 40 MG TABLET PO (09:20)
[2024-07-30] MEDS: LORATADINE 10 MG TABLET FEED TUBE (09:20)
[2024-07-30] MEDS: methylPREDNISolone SOD SUCC 125 MG VIAL 60 MG IV PUSH (09:20)
[2024-07-30] MEDS: INSULIN GLARGINE (*BKC) 100 UNITS/ML 10 UNITS SUB-Q (09:20)
[2024-07-30] MEDS: ENOXAPARIN 40 MG/0.4 ML SYRINGE SUB-Q (09:30)
--- NOTE | 2024-07-30 10:00 | PM.IMPN ---
Progress Note: A&P Assessment and Plan (1) Acute respiratory failure with hypoxia and hypercapnia: Code(s): J96.01 - Acute respiratory failure with hypoxia; J96.02 - Acute respiratory failure with hypercapnia Status: Acute Assessment and Plan: Acute hypoxic and hypercarbic respiratory failure which appears to be secondary to status asthmaticus. Patient has history of allergic asthma and his presentation is consistent. Patient may also have mild underlying COPD considering his long history of smoking but has not been officially diagnosed. CT scan did not show any infiltrates and procalcitonin level was low suggesting against any pneumonia Currently intubated and on mechanical ventilation. Patient was heavily sedated. Patient was still asynchronous with ventilator and was given rocuronium and started on Nimbex infusion 07/27 patient's Nimbex infusion was discontinued and sedation was lowered. As the sedation wore off patient became more tachypneic with asynchrony with the ventilator. At that time patient had high peak pressures and bilateral wheezing. Patient was started back on sedation and had to BT paralyzed. 07/28 pause Nimbex infusion. Will try to wean off sedation and evaluate for weaning trial today. Hold further fluids 07/29 patient has been exhibiting dynamic airway obstruction. When sedated and paralyzed clearly his airway pressures are low, no wheezing. When paralytics are discontinued in sedation is lowered patient becomes tachypneic, asynchronous with ventilator leading to high peak pressures and wheezing on exam.. I have him on Precedex infusion for anxiolysis. I will again discontinue Nimbex infusion and then lower propofol. Depending on how he responds will evaluate for weaning trial. Chest x-ray, ABG Ventilator settings reviewed. Continue Solu-Medrol but decrease dose to daily, scheduled bronchodilators contain Claritin Hold antibiotics discussed with pulmonary (2) Hypertension: Qualifiers: Hypertension type: primary hypertension Qualified Code(s): I10 - Essential (primary) hypertension Code(s): I10 - Essential (primary) hypertension Status: Chronic Assessment and Plan: Patient blood pressure is now soft secondary to sedation. Hold antihypertensive medications (3) Allergic asthma: Qualifiers: Asthma complication type: with acute exacerbation Asthma persistence: persistent Asthma severity: severe Qualified Code(s): J45.51 - Severe persistent asthma with (acute) exacerbation Code(s): J45.909 - Unspecified asthma, uncomplicated Status: Acute Assessment and Plan: See above (4) COPD (chronic obstructive pulmonary disease): Qualifiers: COPD type: unspecified COPD Qualified Code(s): J44.9 - Chronic obstructive pulmonary disease, unspecified Code(s): J44.9 - Chronic obstructive pulmonary disease, unspecified Status: Acute Assessment and Plan: See above (5) Obstructive sleep apnea: Code(s): G47.33 - Obstructive sleep apnea (adult) (pediatric) Status: Acute Assessment and Plan: Currently intubated and on mechanical ventilation (6) Status asthmaticus: Code(s): J45.902 - Unspecified asthma with status asthmaticus Status: Acute Assessment and Plan: See above (7) GRACIELA (acute kidney injury): Code(s): N17.9 - Acute kidney failure, unspecified Status: Acute Assessment and Plan: patient developed GRACIELA. His creatinine yesterday was 2.18. Likely secondary to hypotension vs hypovolemia patient was given IV fluids and creatinine has improved and now normalized Normal renal ultrasound, CK was mildly elevate monitor urine output electrolytes and creatinine Patient has been on IV fluids. I will hold further IV fluids at this time Subjective Date/time seen: 07/30/24 10:00 Interval history: Patient remains intubated and management as per ICU. Review of Systems Review of Systems: All systems reviewed & are unremarkable except as noted in HPI and below ROS unobtainable: Yes unobtainable due to endotracheal tube, unobtainable due to medical condition and unobtainable due to mental status Exam Narrative: General: Pt is sedated, intubated and on mechanical ventilation Lungs/Chest: Trachea central nol wheezing, Improved overall air movement, no wheezing when patient is paralyzed, Vent paralytics are off patient become a synchronous with the vent and has bilateral wheezing on exam Cardiac: RRR. Normal S1 S2. No murmurs Circulation: Pedal pulses are intact and symmetrical. Abdomen: Decreased bowel sounds. Obese. Soft. NT. ND. Extremities: No clubbing, cyanosis or edema. Warm : Garcia in place Neurologic: Unable to assess due to sedation and chemical paralysis PERRL Paralysed with nimbex Const: General: in distress and uncomfortable Other: , male, ill-appearing, significant respiratory distress HENMT: Face/Nose/Sinus: Normal nares present Mouth: Yes dry mucous membranes Eyes: General: appearance normal, both eyes and all related structures Sclera: sclerae normal Pupils: Equal, round and reactive pupils present EOM: EOMs intact bilaterally Resp: Other: BiPAP in place, tolerating okay. Intermittent coughing requiring removal of BiPAP mask. Significant tachypnea with subcostal retractions. Minimal air movement in all lung koch with faint consistent expiratory wheeze. No crackles or rhonchi. Cardio: Rate: tachycardic Rhythm: regular rhythm Other: S1-S2 present without murmur, rub, ectopy GI: Other: Abdomen soft, nondistended, nontender. Normoactive bowel sounds in all quadrants. Skin: General skin exam: normal color and no rashes or lesions noted Wounds: no wounds Neuro: Cranial nerves: Yes Equal, round and reactive pupils present Speech: normal speech Motor exam (neuro): 5/5 motor strength present throughout Sensory Exam: normal sensation Other: A&O x4. However somnolent/fatigued. Extrem: General: normal to inspection Psych: Mental Status: mental status grossly normal Affect: normal affect Other: Good insight and judgment, pleasant Objective Data Vital Signs Vital Signs: Vital Signs - 24 hr 07/29/24 10:15 07/29/24 10:15 07/29/24 10:23 Temperature Pulse Rate 70 71 90 Respiratory Rate 38 H 38 H 18 Blood Pressure Pulse Oximetry Oxygen Delivery Fraction of Inspired Oxygen 07/29/24 10:23 07/29/24 10:35 07/29/24 10:45 Temperature Pulse Rate 71 63 64 Respiratory Rate 18 Blood Pressure Pulse Oximetry 96 97 Oxygen Delivery Mechanical Ventilation Mechanical Ventilation Fraction of Inspired Oxygen 45 45 07/29/24 11:30 07/29/24 11:42 07/29/24 12:00 Temperature 97.8 F Pulse Rate 81 Respiratory Rate 16 Blood Pressure 192/74 H Pulse Oximetry 95 Oxygen Delivery Mechanical Ventilation Fraction of Inspired Oxygen 45 50 07/29/24 12:00 07/29/24 12:00 07/29/24 12:00 Temperature Pulse Rate 71 65 64 Respiratory Rate 18 15 Blood Pressure Pulse Oximetry Oxygen Delivery Fraction of Inspired Oxygen 07/29/24 12:00 07/29/24 12:54 07/29/24 12:54 Temperature Pulse Rate 64 62 79 Respiratory Rate 15 17 17 Blood Pressure Pulse Oximetry Oxygen Delivery Fraction of Inspired Oxygen 07/29/24 13:40 07/29/24 13:40 07/29/24 13:53 Temperature Pulse Rate 61 61 67 Respiratory Rate 21 H 18 Blood Pressure Pulse Oximetry 95 Oxygen Delivery Mechanical Ventilation Fraction of Inspired Oxygen 45 07/29/24 13:54 07/29/24 14:00 07/29/24 14:00 Temperature 98.3 F Pulse Rate 67 70 70 Respiratory Rate 18 17 Blood Pressure 157/77 H Pulse Oximetry 96 Oxygen Delivery Fraction of Inspired Oxygen 07/29/24 14:00 07/29/24 14:00 07/29/24 14:38 Temperature Pulse Rate 66 65 65 Respiratory Rate 17 17 18 Blood Pressure Pulse Oximetry Oxygen Delivery Fraction of Inspired Oxygen 07/29/24 16:00 07/29/24 16:00 07/29/24 16:00 Temperature Pulse Rate 61 61 61 Respiratory Rate 17 17 17 Blood Pressure Pulse Oximetry Oxygen Delivery Fraction of Inspired Oxygen 07/29/24 16:00 07/29/24 16:00 07/29/24 16:00 Temperature 98.5 F Pulse Rate 61 Respiratory Rate 18 Blood Pressure 167/75 H Pulse Oximetry 96 Oxygen Delivery Mechanical Ventilation Fraction of Inspired Oxygen 45 45 07/29/24 16:00 07/29/24 16:30 07/29/24 16:45 Temperature Pulse Rate 63 64 64 Respiratory Rate 17 Blood Pressure Pulse Oximetry 96 Oxygen Delivery Mechanical Ventilation Fraction of Inspired Oxygen 45 07/29/24 17:08 07/29/24 18:00 07/29/24 18:00 Temperature 98.8 F Pulse Rate 64 59 L 60 Respiratory Rate 17 18 Blood Pressure 178/83 H Pulse Oximetry 95 Oxygen Delivery Fraction of Inspired Oxygen 07/29/24 18:00 07/29/24 18:05 07/29/24 18:05 Temperature Pulse Rate 60 60 65 Respiratory Rate 19 18 16 Blood Pressure Pulse Oximetry Oxygen Delivery Fraction of Inspired Oxygen 07/29/24 18:07 07/29/24 19:50 07/29/24 19:50 Temperature Pulse Rate 60 64 64 Respiratory Rate 17 20 20 Blood Pressure Pulse Oximetry Oxygen Delivery Fraction of Inspired Oxygen 07/29/24 20:00 07/29/24 20:00 07/29/24 20:00 Temperature 99.2 F Pulse Rate 63 62 62 Respiratory Rate 22 H 20 20 Blood Pressure 170/83 H Pulse Oximetry 94 Oxygen Delivery Fraction of Inspired Oxygen 07/29/24 20:00 07/29/24 20:00 07/29/24 20:00 Temperature Pulse Rate 62 Respiratory Rate 20 Blood Pressure Pulse Oximetry 94 Oxygen Delivery Mechanical Ventilation Fraction of Inspired Oxygen 45 45 07/29/24 20:00 07/29/24 20:22 07/29/24 20:36 Temperature Pulse Rate 62 57 L 57 L Respiratory Rate 16 Blood Pressure Pulse Oximetry 93 Oxygen Delivery Mechanical Ventilation Fraction of Inspired Oxygen 45 07/29/24 21:48 07/29/24 21:48 07/29/24 21:57 Temperature Pulse Rate 62 62 61 Respiratory Rate 17 17 20 Blood Pressure Pulse Oximetry Oxygen Delivery Fraction of Inspired Oxygen 07/29/24 21:57 07/29/24 22:00 07/29/24 22:00 Temperature 99.1 F Pulse Rate 61 63 60 Respiratory Rate 20 22 H 19 Blood Pressure 175/88 H Pulse Oximetry 93 Oxygen Delivery Fraction of Inspired Oxygen 07/29/24 22:00 07/29/24 22:00 07/29/24 22:00 Temperature Pulse Rate 60 60 61 Respiratory Rate 19 19 Blood Pressure Pulse Oximetry Oxygen Delivery Fraction of Inspired Oxygen 07/29/24 22:36 07/29/24 22:36 07/29/24 23:07 Temperature Pulse Rate 63 63 62 Respiratory Rate 18 18 Blood Pressure Pulse Oximetry 98 Oxygen Delivery Mechanical Ventilation Fraction of Inspired Oxygen 45 07/30/24 00:00 07/30/24 00:00 07/30/24 00:00 Temperature 99.2 F Pulse Rate 59 L 60 60 Respiratory Rate 22 H 17 17 Blood Pressure 161/77 H Pulse Oximetry 94 Oxygen Delivery Fraction of Inspired Oxygen 07/30/24 00:00 07/30/24 00:00 07/30/24 00:00 Temperature Pulse Rate 60 Respiratory Rate 17 Blood Pressure Pulse Oximetry 93 Oxygen Delivery Mechanical Ventilation Fraction of Inspired Oxygen 45 45 07/30/24 00:00 07/30/24 01:16 07/30/24 01:16 Temperature Pulse Rate 61 60 60 Respiratory Rate 21 H 21 H Blood Pressure Pulse Oximetry Oxygen Delivery Fraction of Inspired Oxygen 07/30/24 01:18 07/30/24 01:18 07/30/24 02:00 Temperature Pulse Rate 60 60 61 Respiratory Rate 20 20 18 Blood Pressure Pulse Oximetry Oxygen Delivery Fraction of Inspired Oxygen 07/30/24 02:00 07/30/24 02:00 07/30/24 02:00 Temperature Pulse Rate 61 61 61 Respiratory Rate 18 18 Blood Pressure Pulse Oximetry Oxygen Delivery Fraction of Inspired Oxygen 07/30/24 02:00 07/30/24 02:00 07/30/24 02:31 Temperature 99.5 F 99.5 F Pulse Rate 61 60 60 Respiratory Rate 18 22 H 18 Blood Pressure 151/83 H 151/83 H Pulse Oximetry 93 93 Oxygen Delivery Fraction of Inspired Oxygen 07/30/24 02:43 07/30/24 02:53 07/30/24 04:00 Temperature Pulse Rate 64 64 Respiratory Rate 20 Blood Pressure Pulse Oximetry 94 Oxygen Delivery Mechanical Ventilation Fraction of Inspired Oxygen 45 45 07/30/24 04:00 07/30/24 04:00 07/30/24 04:00 Temperature 99.9 F H Pulse Rate 65 64 64 Respiratory Rate 22 H 20 20 Blood Pressure 135/74 Pulse Oximetry 92 Oxygen Delivery Fraction of Inspired Oxygen 07/30/24 04:00 07/30/24 04:00 07/30/24 04:00 Temperature Pulse Rate 64 63 Respiratory Rate 20 Blood Pressure Pulse Oximetry 92 Oxygen Delivery Mechanical Ventilation Fraction of Inspired Oxygen 45 07/30/24 04:29 07/30/24 04:44 07/30/24 05:24 Temperature Pulse Rate 60 60 60 Respiratory Rate 21 H 21 H 21 H Blood Pressure Pulse Oximetry Oxygen Delivery Fraction of Inspired Oxygen 07/30/24 05:24 07/30/24 05:56 07/30/24 06:00 Temperature Pulse Rate 60 57 L 58 L Respiratory Rate 21 H 18 Blood Pressure Pulse Oximetry 92 Oxygen Delivery Mechanical Ventilation Fraction of Inspired Oxygen 45 07/30/24 06:00 07/30/24 06:00 07/30/24 06:00 Temperature Pulse Rate 58 L 58 L 59 L Respiratory Rate 18 18 Blood Pressure Pulse Oximetry Oxygen Delivery Fraction of Inspired Oxygen 07/30/24 06:00 07/30/24 07:41 07/30/24 07:41 Temperature 99.4 F Pulse Rate 59 L 60 60 Respiratory Rate 17 15 15 Blood Pressure 126/66 Pulse Oximetry 91 Oxygen Delivery Fraction of Inspired Oxygen 07/30/24 08:00 07/30/24 08:00 07/30/24 08:55 Temperature 99.4 F Pulse Rate 58 L 59 L 57 L Respiratory Rate 17 18 Blood Pressure 116/68 Pulse Oximetry 92 92 Oxygen Delivery Mechanical Ventilation Fraction of Inspired Oxygen 45 07/30/24 09:05 07/30/24 09:13 07/30/24 09:15 Temperature Pulse Rate 58 L 57 L 53 L Respiratory Rate 11 L 20 13 Blood Pressure Pulse Oximetry Oxygen Delivery Fraction of Inspired Oxygen 07/30/24 09:17 07/30/24 09:52 Temperature Pulse Rate 56 L 59 L Respiratory Rate 12 20 Blood Pressure Pulse Oximetry Oxygen Delivery Fraction of Inspired Oxygen Intake/Output Intake/Output: Intake & Output 07/27/24 07/28/24 07/29/24 07/30/24 23:59 23:59 23:59 23:59 Intake Total 2510.5 2490.6 3656.0 1533.4 Output Total 1775 2750 4980 850 Balance 735.5 -259.4 -1324.0 683.4 Meds/Results Medications: Active Medications Generic Name Dose Route Start Last Admin Trade Name Freq PRN Reason Stop Dose Admin Acetaminophen 650 mg 07/25/24 19:51 Acetaminophen Elixir 325 Mg/10.15 Ml Udc PO Q6H PRN Mild Pain (1-3) or Fever Albuterol/Ipratropium 3 ml 07/26/24 14:00 07/30/24 02:31 Ipratropium 0.5 Mg/Albuterol Sulfate 2.5 Mg Ampul.Neb 3 Ml INHALATION 3 ml Q6HRT JOSEMANUEL Administration Atorvastatin Calcium 40 mg 07/27/24 09:00 07/30/24 09:20 Atorvastatin 40 Mg Tablet PO 40 mg DAILY JOSEMANUEL Administration Dextrose 12.5 gm 07/27/24 12:28 Dextrose 50% 25 Gm/50 Ml Syringe IV PUSH PRN PRN Hypoglycemia Protocol Enoxaparin Sodium 40 mg 07/26/24 09:00 07/30/24 09:30 Enoxaparin 40 Mg/0.4 Ml Syringe SUB-Q 40 mg DAILY JOSEMANUEL Administration Fluticasone/Umeclidinium/Vilanterol 1 puff 07/27/24 08:00 07/28/24 08:45 Fluticasone/Umeclidin/Vilanter 100-62.5-25 Mcg Ellipta INHALATION Not Given DAILYRT JOSEMANUEL Glucagon 1 mg 07/27/24 12:28 Glucagon For Inj 1 Mg Vial IM PRN PRN Hypoglycemia Protocol Glucose 15 gm 07/27/24 12:28 Glucose Oral Gel 15 Gm Of Glucse In 37.5 Gm Tube PO PRN PRN Hypoglycemia Protocol Hydralazine HCl 10 mg 07/25/24 19:41 07/29/24 00:51 Hydralazine Hcl 20 Mg/Ml Vial IV PUSH 10 mg Q8H PRN Administration BP greater than 180/90 Propofol 100 mls @ 10 mls/hr 07/25/24 23:05 07/30/24 09:17 Diprivan IV CONT 100.4 mcg/kg/min .Q10H JOSEMANUEL 50 mls/hr Administration Protocol 20.08 MCG/KG/MIN Norepinephrine Bitartrate 8 mg in 250 mls @ 9.375 mls/hr 07/26/24 14:40 07/27/24 21:17 Levophed 8 Mg/D5w 250 Ml IV CONT Not Given .Q24H JOSEMANUEL Protocol 5 MCG/MIN Dextrose 1,000 mls @ 100 mls/hr 07/27/24 12:28 Dextrose 5% 1,000 Ml IVPB PRN PRN Hypoglycemia Protocol Dexmedetomidine HCl 400 mcg in 100 mls @ 31.2 mls/hr 07/28/24 02:05 07/30/24 07:41 Precedex 400 Mcg/100 Ml IV CONT 1.5 mcg/kg/hr .Q3H13M JOSEMANUEL 31.2 mls/hr Administration Protocol 1.5 MCG/KG/HR Cisatracurium Besylate 200 mg/ 100 mls @ 0 mls/hr 07/28/24 23:05 07/29/24 08:15 Sodium Chloride IV CONT 0 mcg/kg/min .Q0M JOSEMANUEL 0 mls/hr Titration Protocol Fentanyl Citrate 2,500 mcg in 250 mls @ 0 mls/hr 07/29/24 08:20 07/30/24 09:05 Fentanyl 2,500 Mcg/Ns 250 Ml IV CONT 0 mcg/hr .Q0M JOSEMANUEL 0 mls/hr Titration Protocol Insulin Aspart 3 - 6 units 07/27/24 13:00 07/30/24 09:14 Insulin Aspart (*Bkc) 100 Units/Ml SUB-Q Not Given Q4HR JOSEMANUEL Protocol Insulin Glargine 10 units 07/29/24 09:00 07/30/24 09:20 Insulin Glargine (*Bkc) 100 Units/Ml SUB-Q 10 units QAM JOSEMANUEL Administration Loratadine 10 mg 07/26/24 09:51 07/30/24 09:20 Loratadine 10 Mg Tablet FEED TUBE 10 mg QAM JOSEMANUEL Administration Methylprednisolone Sodium Succinate 60 mg 07/30/24 09:00 07/30/24 09:20 Methylprednisolone Sod Succ 125 Mg Vial IV PUSH 60 mg QAM JOSEMANUEL Administration Midazolam HCl 4 mg 07/28/24 23:03 07/30/24 04:50 Midazolam Hcl (*Crx) 2 Mg/2 Ml Vial IV PUSH 4 mg Q1H PRN Administration Agitation Montelukast Sodium 10 mg 07/26/24 21:00 07/29/24 20:41 Montelukast Sodium 10 Mg Tablet PO 10 mg QHS JOSEMANUEL Administration Multi-Ingred Cream/Lotion/Oil/Oint 1 applic 07/29/24 09:00 07/30/24 09:20 Mineral Oil/White Petrolatum Ointment EACH EYE 1 applic Q12HR JOSEMANUEL Administration Pantoprazole Sodium 40 mg 07/26/24 09:55 07/30/24 09:20 Pantoprazole Sodium Iv 40 Mg Vial IV PUSH 40 mg QAM JOSEMANUEL Administration Sodium Chloride 20 ml 07/26/24 10:36 Central Line Flush IV PUSH PRN PRN after blood draws Sodium Chloride 10 ml 07/26/24 10:36 Central Line Flush IV PUSH PRN PRN with TPN bag changes Sodium Chloride 10 ml 07/26/24 14:00 07/30/24 05:26 Central Line Flush IV PUSH 10 ml Q8HR JOSEMANUEL Administration Radiology Results: ITS Impressions Abdomen X-Ray 07/25/24 16:47 IMPRESSION: 1. Endotracheal tube tip 1 cm above the jose. 2. No acute cardiopulmonary disease. 3. Nasogastric tube extends into the stomach with distal tip projecting near the level of the gastroesophageal junction. Unclear with only AP projections tube extends back into the gastroesophageal junction were positioned more anteriorly in the body but superimposed over the gastroesophageal junction. Consider obtaining an oblique or crosstable lateral view for more definitive determination. Chest CT 07/25/24 17:51 IMPRESSION: 1. Minimal bilateral basal atelectasis with minimal effusion. 2. Endotracheal tube with the tip at the jose. Retraction by 2 to 3 cm is advised. 3. Left kidney stone. Renal Ultrasound 07/27/24 14:10 IMPRESSION: 1. Normal kidneys without hydronephrosis. Chest X-Ray 07/30/24 06:01 Impression: Minimal left pleural effusion with probable left basilar atelectasis. Correlate clinically for pneumonia. Support tubes, as above. Labs Labs: Laboratory Results - last 24 hr 07/27/24 07/29/24 07/29/24 16:19 11:31 16:47 WBC RBC Hgb Hct MCV MCH MCHC RDW Plt Count MPV Immature Gran % (Auto) Neut % (Auto) Lymph % (Auto) [place] % (Auto) Eos % (Auto) Baso % (Auto) Lymph # (Auto) [place] # (Auto) Eos # (Auto) Baso # (Auto) Abs Immat Gran (auto) Absolute Neuts (auto) Absolute Nucleated RBC Nucleated RBC % Puncture Site ABG pH ABG pCO2 ABG pO2 ABG PO2/FiO2 Ratio ABG HCO3 ABG O2 Saturation ABG O2 Content ABG Base Excess A-a Gradient Oxyhemoglobin Total Hemoglobin O2 Delivery Device O2 Liters/Min Minute Volume Vent Rate Vent Mode FiO2 Tidal Volume PEEP Peak Inspir Pressure Pressure Support Sodium Potassium Chloride Carbon Dioxide Anion Gap BUN Creatinine Estim Creat Clear Calc Estimated GFR Glucose POC Capillary Glucose 222 H 251 H 387 H Calcium Phosphorus Magnesium Total Bilirubin AST ALT Alkaline Phosphatase Total Protein Albumin 07/29/24 07/29/24 07/30/24 20:05 23:59 04:05 WBC RBC Hgb Hct MCV MCH MCHC RDW Plt Count MPV Immature Gran % (Auto) Neut % (Auto) Lymph % (Auto) [place] % (Auto) Eos % (Auto) Baso % (Auto) Lymph # (Auto) [place] # (Auto) Eos # (Auto) Baso # (Auto) Abs Immat Gran (auto) Absolute Neuts (auto) Absolute Nucleated RBC Nucleated RBC % Puncture Site ABG pH ABG pCO2 ABG pO2 ABG PO2/FiO2 Ratio ABG HCO3 ABG O2 Saturation ABG O2 Content ABG Base Excess A-a Gradient Oxyhemoglobin Total Hemoglobin O2 Delivery Device O2 Liters/Min Minute Volume Vent Rate Vent Mode FiO2 Tidal Volume PEEP Peak Inspir Pressure Pressure Support Sodium Potassium Chloride Carbon Dioxide Anion Gap BUN Creatinine Estim Creat Clear Calc Estimated GFR Glucose POC Capillary Glucose 256 H 199 H 185 H Calcium Phosphorus Magnesium Total Bilirubin AST ALT Alkaline Phosphatase Total Protein Albumin 07/30/24 07/30/24 07/30/24 04:24 05:43 07:36 WBC 15.0 H RBC 4.80 Hgb 15.1 Hct 44.2 MCV 92.1 MCH 31.5 MCHC 34.2 RDW 13.0 Plt Count 237 MPV 9.3 Immature Gran % (Auto) 1.2 H Neut % (Auto) 68.2 Lymph % (Auto) 20.0 [place] % (Auto) 9.7 H Eos % (Auto) 0.7 Baso % (Auto) 0.2 Lymph # (Auto) 3.00 [place] # (Auto) 1.5 H Eos # (Auto) 0.1 Baso # (Auto) 0.0 Abs Immat Gran (auto) 0.18 H Absolute Neuts (auto) 10.3 H Absolute Nucleated RBC 0.020 H Nucleated RBC % 0.1 Puncture Site Left radial ABG pH 7.435 ABG pCO2 46.9 H ABG pO2 61.3 L ABG PO2/FiO2 Ratio 1.36 ABG HCO3 30.8 H ABG O2 Saturation 92.0 L ABG O2 Content 19.9 ABG Base Excess 5.5 A-a Gradient 206.2 Oxyhemoglobin 90.2 Total Hemoglobin 15.7 O2 Delivery Device Ventilator O2 Liters/Min Not Reportable Minute Volume Not Reportable Vent Rate 18 Vent Mode Cmv FiO2 45 Tidal Volume 450 PEEP 8 Peak Inspir Pressure Not Reportable Pressure Support Not Reportable Sodium 139 Potassium 4.0 Chloride 100 Carbon Dioxide 31 H Anion Gap 8 BUN 31 H Creatinine 0.86 Estim Creat Clear Calc 77 Estimated GFR > 60 Glucose 166 H POC Capillary Glucose 173 H Calcium 8.8 Phosphorus 3.8 Magnesium 2.7 H Total Bilirubin 0.5 AST 31 ALT 47 Alkaline Phosphatase 104 Total Protein 6.0 L Albumin 3.6 Quality VTE Prophylaxis VTE prophylaxis: pharmacologic ordered Hospitalist [facility] Advance Care Plan I have confirmed that the patient's Advanced Care Plan is present, code status is documented, or surrogate decision maker is listed in patient medical record.: Yes Medication Reconciliation I have utilized all available resources to obtain, update and review the patients current medications (includes all prescriptions, OTC, herbals, cannabis, and nutritional supplements).: Yes
[2024-07-30 11:21] LABS: Procalcitonin 0.2 ng/mL
[2024-07-30 11:36] LABS: Glucose Point of Care 214 mg/dl (65-105)
--- NOTE | 2024-07-30 11:53 | WPDINTPN ---
Progress Note: A&P Assessment and Plan (1) Acute respiratory failure with hypoxia and hypercapnia: Code(s): J96.01 - Acute respiratory failure with hypoxia; J96.02 - Acute respiratory failure with hypercapnia Status: Acute Assessment and Plan: Acute hypoxic and hypercarbic respiratory failure which appears to be secondary to status asthmaticus. Patient has history of allergic asthma and his presentation is consistent. Patient may also have mild underlying COPD considering his long history of smoking but has not been officially diagnosed. CT scan did not show any infiltrates and procalcitonin level was low suggesting against any pneumonia Currently intubated and on mechanical ventilation. Patient was heavily sedated. Patient was still asynchronous with ventilator and was given rocuronium and started on Nimbex infusion 07/27 patient's Nimbex infusion was discontinued and sedation was lowered. As the sedation wore off patient became more tachypneic with asynchrony with the ventilator. At that time patient had high peak pressures and bilateral wheezing. Patient was started back on sedation and had to BT paralyzed. 07/28 pause Nimbex infusion. Will try to wean off sedation and evaluate for weaning trial today. Hold further fluids 07/29 patient has been exhibiting dynamic airway obstruction. When sedated and paralyzed clearly his airway pressures are low, no wheezing. When paralytics are discontinued in sedation is lowered patient becomes tachypneic, asynchronous with ventilator leading to high peak pressures and wheezing on exam.. I have him on Precedex infusion for anxiolysis. I will again discontinue Nimbex infusion and then lower propofol. Depending on how he responds will evaluate for weaning trial. 07/30 sedation holiday was performed despite being on Precedex and low-dose of propofol patient was tachypneic with respiratory rate in 40s high tidal volume and drop in saturation. Weaning trial attempt was aborted and patient was placed back on sedation Chest x-ray reviewed and shows possible left lower lobe infiltrate. With increased respiratory secretion and low-grade fever this morning I will check procalcitonin level blood cultures sputum culture and check CT scan of the chest to evaluate for pneumonia ABG reviewed Discussed with hogshead wrecker Continue Solu-Medrol but decrease dose further. Continue scheduled bronchodilators contain Claritin and Singulair Discuss in detail with hogshead wrecker. Depending on how he does we may have to chest extubate him without a weaning trial considering that there may be component of anxiety leading to him failing weaning trial although this is not very clear (2) Hypertension: Qualifiers: Hypertension type: primary hypertension Qualified Code(s): I10 - Essential (primary) hypertension Code(s): I10 - Essential (primary) hypertension Status: Chronic Assessment and Plan: Patient blood pressure is now soft secondary to sedation. Hold antihypertensive medications (3) Allergic asthma: Qualifiers: Asthma severity: severe Asthma persistence: persistent Asthma complication type: with acute exacerbation Qualified Code(s): J45.51 - Severe persistent asthma with (acute) exacerbation Code(s): J45.909 - Unspecified asthma, uncomplicated Status: Acute Assessment and Plan: See above (4) COPD (chronic obstructive pulmonary disease): Qualifiers: COPD type: unspecified COPD Qualified Code(s): J44.9 - Chronic obstructive pulmonary disease, unspecified Code(s): J44.9 - Chronic obstructive pulmonary disease, unspecified Status: Acute Assessment and Plan: See above (5) Obstructive sleep apnea: Code(s): G47.33 - Obstructive sleep apnea (adult) (pediatric) Status: Acute Assessment and Plan: Currently intubated and on mechanical ventilation (6) Status asthmaticus: Code(s): J45.902 - Unspecified asthma with status asthmaticus Status: Acute Assessment and Plan: See above (7) GRACIELA (acute kidney injury): Code(s): N17.9 - Acute kidney failure, unspecified Status: Acute Assessment and Plan: patient developed GRACIELA. His creatinine yesterday was 2.18. Likely secondary to hypotension vs hypovolemia patient was given IV fluids and creatinine has improved and now normalized Normal renal ultrasound, CK was mildly elevate monitor urine output electrolytes and creatinine Patient has been on IV fluids. I will hold further IV fluids at this time Plan DVT prophylaxis -Lovenox Stress ulcer prophylaxis -Protonix Nutrition - continue Tube Feeds Code Status - Full Code I spoke to patient's and sister in detail at bedside and updated her with patient's current status and current treatment plan. I answered all her questions. Case also discussed with hogshead wrecker Total Critical Care Time - 30 minutes Due to a high probability of clinically significant, life threatening deterioration, the patient required my highest level of preparedness to intervene emergently and I personally spent this critical care time directly and personally managing the patient. This critical care time included obtaining a history; examining the patient; pulse oximetry; ordering and review of studies; arranging urgent treatment with development of a management plan; evaluation of patient's response to treatment; frequent reassessment; and discussions with other providers. It was exclusive of separately billable procedures and treating other patients and teaching time. Please see Assessment and Plan section and the rest of the note for further information on patient assessment and treatment Subjective Date/time seen: 07/30/24 Overnight events reviewed. Low-grade fever this morning Continues to be on mechanical ventilation 30% FiO2 Continues to be sedated with propofol Precedex and fentanyl Increased respiratory secretions. Tolerating tube feeds. Vitals acceptable Review of Systems Review of Systems: ROS unobtainable: Yes unobtainable due to endotracheal tube, unobtainable due to medical condition and unobtainable due to mental status Exam Narrative: General: Pt is sedated, intubated and on mechanical ventilation Lungs/Chest: Trachea central nol wheezing, Improved overall air movement, no wheezing when patient is sedated. Occasional bilateral wheezing on weaning trial Cardiac: RRR. Normal S1 S2. No murmurs Circulation: Pedal pulses are intact and symmetrical. Abdomen: Decreased bowel sounds. Obese. Soft. NT. ND. Extremities: No clubbing, cyanosis or edema. Warm : Garcia in place Neurologic: Unable to assess due to sedation. On holding sedation patient does follow commands intermittently with his both hands. PERRL Objective Data Vital Signs Vital Signs: Vital Signs - 24 hr 07/29/24 12:00 07/29/24 12:00 07/29/24 12:00 Temperature Pulse Rate 71 65 Respiratory Rate 18 Blood Pressure Pulse Oximetry Oxygen Delivery Fraction of Inspired Oxygen 50 07/29/24 12:00 07/29/24 12:00 07/29/24 12:54 Temperature Pulse Rate 64 64 62 Respiratory Rate 15 15 17 Blood Pressure Pulse Oximetry Oxygen Delivery Fraction of Inspired Oxygen 07/29/24 12:54 07/29/24 13:40 07/29/24 13:40 Temperature Pulse Rate 79 61 61 Respiratory Rate 17 21 H Blood Pressure Pulse Oximetry 95 Oxygen Delivery Mechanical Ventilation Fraction of Inspired Oxygen 45 07/29/24 13:53 07/29/24 13:54 07/29/24 14:00 Temperature Pulse Rate 67 67 70 Respiratory Rate 18 18 Blood Pressure Pulse Oximetry Oxygen Delivery Fraction of Inspired Oxygen 07/29/24 14:00 07/29/24 14:00 07/29/24 14:00 Temperature 36.8 C Pulse Rate 70 66 65 Respiratory Rate 17 17 17 Blood Pressure 157/77 H Pulse Oximetry 96 Oxygen Delivery Fraction of Inspired Oxygen 07/29/24 14:38 07/29/24 16:00 07/29/24 16:00 Temperature Pulse Rate 65 61 61 Respiratory Rate 18 17 17 Blood Pressure Pulse Oximetry Oxygen Delivery Fraction of Inspired Oxygen 07/29/24 16:00 07/29/24 16:00 07/29/24 16:00 Temperature Pulse Rate 61 Respiratory Rate 17 Blood Pressure Pulse Oximetry Oxygen Delivery Mechanical Ventilation Fraction of Inspired Oxygen 45 45 07/29/24 16:00 07/29/24 16:00 07/29/24 16:30 Temperature 36.9 C Pulse Rate 61 63 64 Respiratory Rate 18 17 Blood Pressure 167/75 H Pulse Oximetry 96 Oxygen Delivery Fraction of Inspired Oxygen 07/29/24 16:45 07/29/24 17:08 07/29/24 18:00 Temperature Pulse Rate 64 64 59 L Respiratory Rate 17 Blood Pressure Pulse Oximetry 96 Oxygen Delivery Mechanical Ventilation Fraction of Inspired Oxygen 45 07/29/24 18:00 07/29/24 18:00 07/29/24 18:05 Temperature 37.1 C Pulse Rate 60 60 60 Respiratory Rate 18 19 18 Blood Pressure 178/83 H Pulse Oximetry 95 Oxygen Delivery Fraction of Inspired Oxygen 07/29/24 18:05 07/29/24 18:07 07/29/24 19:50 Temperature Pulse Rate 65 60 64 Respiratory Rate 16 17 20 Blood Pressure Pulse Oximetry Oxygen Delivery Fraction of Inspired Oxygen 07/29/24 19:50 07/29/24 20:00 07/29/24 20:00 Temperature 37.3 C Pulse Rate 64 63 62 Respiratory Rate 20 22 H 20 Blood Pressure 170/83 H Pulse Oximetry 94 Oxygen Delivery Fraction of Inspired Oxygen 07/29/24 20:00 07/29/24 20:00 07/29/24 20:00 Temperature Pulse Rate 62 62 Respiratory Rate 20 20 Blood Pressure Pulse Oximetry 94 Oxygen Delivery Mechanical Ventilation Fraction of Inspired Oxygen 45 07/29/24 20:00 07/29/24 20:00 07/29/24 20:22 Temperature Pulse Rate 62 57 L Respiratory Rate 16 Blood Pressure Pulse Oximetry Oxygen Delivery Fraction of Inspired Oxygen 45 07/29/24 20:36 07/29/24 21:48 07/29/24 21:48 Temperature Pulse Rate 57 L 62 62 Respiratory Rate 17 17 Blood Pressure Pulse Oximetry 93 Oxygen Delivery Mechanical Ventilation Fraction of Inspired Oxygen 45 07/29/24 21:57 07/29/24 21:57 07/29/24 22:00 Temperature 37.3 C Pulse Rate 61 61 63 Respiratory Rate 20 20 22 H Blood Pressure 175/88 H Pulse Oximetry 93 Oxygen Delivery Fraction of Inspired Oxygen 07/29/24 22:00 07/29/24 22:00 07/29/24 22:00 Temperature Pulse Rate 60 60 60 Respiratory Rate 19 19 19 Blood Pressure Pulse Oximetry Oxygen Delivery Fraction of Inspired Oxygen 07/29/24 22:00 07/29/24 22:36 07/29/24 22:36 Temperature Pulse Rate 61 63 63 Respiratory Rate 18 18 Blood Pressure Pulse Oximetry Oxygen Delivery Fraction of Inspired Oxygen 07/29/24 23:07 07/30/24 00:00 07/30/24 00:00 Temperature 37.3 C Pulse Rate 62 59 L 60 Respiratory Rate 22 H 17 Blood Pressure 161/77 H Pulse Oximetry 98 94 Oxygen Delivery Mechanical Ventilation Fraction of Inspired Oxygen 45 07/30/24 00:00 07/30/24 00:00 07/30/24 00:00 Temperature Pulse Rate 60 60 Respiratory Rate 17 17 Blood Pressure Pulse Oximetry 93 Oxygen Delivery Mechanical Ventilation Fraction of Inspired Oxygen 45 07/30/24 00:00 07/30/24 00:00 07/30/24 01:16 Temperature Pulse Rate 61 60 Respiratory Rate 21 H Blood Pressure Pulse Oximetry Oxygen Delivery Fraction of Inspired Oxygen 45 07/30/24 01:16 07/30/24 01:18 07/30/24 01:18 Temperature Pulse Rate 60 60 60 Respiratory Rate 21 H 20 20 Blood Pressure Pulse Oximetry Oxygen Delivery Fraction of Inspired Oxygen 07/30/24 02:00 07/30/24 02:00 07/30/24 02:00 Temperature Pulse Rate 61 61 61 Respiratory Rate 18 18 18 Blood Pressure Pulse Oximetry Oxygen Delivery Fraction of Inspired Oxygen 07/30/24 02:00 07/30/24 02:00 07/30/24 02:00 Temperature 37.5 C 37.5 C Pulse Rate 61 61 60 Respiratory Rate 18 22 H Blood Pressure 151/83 H 151/83 H Pulse Oximetry 93 93 Oxygen Delivery Fraction of Inspired Oxygen 07/30/24 02:31 07/30/24 02:43 07/30/24 02:53 Temperature Pulse Rate 60 64 64 Respiratory Rate 18 20 Blood Pressure Pulse Oximetry 94 Oxygen Delivery Mechanical Ventilation Fraction of Inspired Oxygen 45 07/30/24 04:00 07/30/24 04:00 07/30/24 04:00 Temperature 37.7 C H Pulse Rate 65 64 Respiratory Rate 22 H 20 Blood Pressure 135/74 Pulse Oximetry 92 Oxygen Delivery Fraction of Inspired Oxygen 45 07/30/24 04:00 07/30/24 04:00 07/30/24 04:00 Temperature Pulse Rate 64 64 Respiratory Rate 20 20 Blood Pressure Pulse Oximetry 92 Oxygen Delivery Mechanical Ventilation Fraction of Inspired Oxygen 45 07/30/24 04:00 07/30/24 04:29 07/30/24 04:44 Temperature Pulse Rate 63 60 60 Respiratory Rate 21 H 21 H Blood Pressure Pulse Oximetry Oxygen Delivery Fraction of Inspired Oxygen 07/30/24 05:24 07/30/24 05:24 07/30/24 05:56 Temperature Pulse Rate 60 60 57 L Respiratory Rate 21 H 21 H Blood Pressure Pulse Oximetry 92 Oxygen Delivery Mechanical Ventilation Fraction of Inspired Oxygen 45 07/30/24 06:00 07/30/24 06:00 07/30/24 06:00 Temperature Pulse Rate 58 L 58 L 58 L Respiratory Rate 18 18 18 Blood Pressure Pulse Oximetry Oxygen Delivery Fraction of Inspired Oxygen 07/30/24 06:00 07/30/24 06:00 07/30/24 07:41 Temperature 37.4 C Pulse Rate 59 L 59 L 60 Respiratory Rate 17 15 Blood Pressure 126/66 Pulse Oximetry 91 Oxygen Delivery Fraction of Inspired Oxygen 07/30/24 07:41 07/30/24 08:00 07/30/24 08:00 Temperature 37.4 C Pulse Rate 60 58 L 59 L Respiratory Rate 15 17 18 Blood Pressure 116/68 Pulse Oximetry 92 Oxygen Delivery Fraction of Inspired Oxygen 07/30/24 08:00 07/30/24 08:00 07/30/24 08:00 Temperature Pulse Rate 59 L 58 L Respiratory Rate 18 17 Blood Pressure Pulse Oximetry Oxygen Delivery Mechanical Ventilation Fraction of Inspired Oxygen 45 07/30/24 08:00 07/30/24 08:00 07/30/24 08:55 Temperature Pulse Rate 57 L 57 L Respiratory Rate Blood Pressure Pulse Oximetry 92 Oxygen Delivery Mechanical Ventilation Fraction of Inspired Oxygen 45 45 07/30/24 09:05 07/30/24 09:13 07/30/24 09:15 Temperature Pulse Rate 58 L 57 L 53 L Respiratory Rate 11 L 20 13 Blood Pressure Pulse Oximetry Oxygen Delivery Fraction of Inspired Oxygen 07/30/24 09:17 07/30/24 09:52 07/30/24 09:58 Temperature Pulse Rate 56 L 59 L 66 Respiratory Rate 12 20 17 Blood Pressure Pulse Oximetry Oxygen Delivery Fraction of Inspired Oxygen 07/30/24 10:00 07/30/24 10:00 07/30/24 10:00 Temperature 37.8 C H Pulse Rate 64 64 Respiratory Rate 17 12 Blood Pressure 122/66 Pulse Oximetry 91 Oxygen Delivery Mechanical Ventilation Fraction of Inspired Oxygen 50 07/30/24 10:06 07/30/24 10:16 07/30/24 10:30 Temperature Pulse Rate 66 75 63 Respiratory Rate 17 19 35 H Blood Pressure Pulse Oximetry Oxygen Delivery Fraction of Inspired Oxygen 07/30/24 10:30 07/30/24 10:54 07/30/24 10:55 Temperature Pulse Rate 100 97 97 Respiratory Rate 35 H 23 H 23 H Blood Pressure Pulse Oximetry Oxygen Delivery Fraction of Inspired Oxygen 07/30/24 11:13 Temperature Pulse Rate 76 Respiratory Rate Blood Pressure Pulse Oximetry 93 Oxygen Delivery Mechanical Ventilation Fraction of Inspired Oxygen 60 Intake/Output Intake/Output: Intake & Output 07/27/24 07/28/24 07/29/24 07/30/24 23:59 23:59 23:59 23:59 Intake Total 2510.5 2490.6 3634.4 1656.8 Output Total 1775 2750 4980 850 Balance 735.5 -259.4 -1345.6 806.8 Meds/Results Medications: Active Medications Generic Name Dose Route Start Last Admin Trade Name Freq PRN Reason Stop Dose Admin Acetaminophen 650 mg 07/25/24 19:51 Acetaminophen Elixir 325 Mg/10.15 Ml Udc PO Q6H PRN Mild Pain (1-3) or Fever Albuterol/Ipratropium 3 ml 07/26/24 14:00 07/30/24 02:31 Ipratropium 0.5 Mg/Albuterol Sulfate 2.5 Mg Ampul.Neb 3 Ml INHALATION 3 ml Q6HRT JOSEMANUEL Administration Atorvastatin Calcium 40 mg 07/27/24 09:00 07/30/24 09:20 Atorvastatin 40 Mg Tablet PO 40 mg DAILY JOSEMANUEL Administration Dextrose 12.5 gm 07/27/24 12:28 Dextrose 50% 25 Gm/50 Ml Syringe IV PUSH PRN PRN Hypoglycemia Protocol Enoxaparin Sodium 40 mg 07/26/24 09:00 07/30/24 09:30 Enoxaparin 40 Mg/0.4 Ml Syringe SUB-Q 40 mg DAILY JOSEMANUEL Administration Fluticasone/Umeclidinium/Vilanterol 1 puff 07/27/24 08:00 07/28/24 08:45 Fluticasone/Umeclidin/Vilanter 100-62.5-25 Mcg Ellipta INHALATION Not Given DAILYRT JOSEMANUEL Glucagon 1 mg 07/27/24 12:28 Glucagon For Inj 1 Mg Vial IM PRN PRN Hypoglycemia Protocol Glucose 15 gm 07/27/24 12:28 Glucose Oral Gel 15 Gm Of Glucse In 37.5 Gm Tube PO PRN PRN Hypoglycemia Protocol Hydralazine HCl 10 mg 07/25/24 19:41 07/29/24 00:51 Hydralazine Hcl 20 Mg/Ml Vial IV PUSH 10 mg Q8H PRN Administration BP greater than 180/90 Propofol 100 mls @ 24.9 mls/hr 07/25/24 23:05 07/30/24 10:30 Diprivan IV CONT 50 mcg/kg/min .Q4H1M JOSEMANUEL 24.9 mls/hr Titration Protocol 50 MCG/KG/MIN Norepinephrine Bitartrate 8 mg in 250 mls @ 9.375 mls/hr 07/26/24 14:40 07/27/24 21:17 Levophed 8 Mg/D5w 250 Ml IV CONT Not Given .Q24H JOSEMANUEL Protocol 5 MCG/MIN Dextrose 1,000 mls @ 100 mls/hr 07/27/24 12:28 Dextrose 5% 1,000 Ml IVPB PRN PRN Hypoglycemia Protocol Dexmedetomidine HCl 400 mcg in 100 mls @ 31.2 mls/hr 07/28/24 02:05 07/30/24 10:55 Precedex 400 Mcg/100 Ml IV CONT 1.5 mcg/kg/hr .Q3H13M JOSEMANUEL 31.2 mls/hr Administration Protocol 1.5 MCG/KG/HR Cisatracurium Besylate 200 mg/ 100 mls @ 0 mls/hr 07/28/24 23:05 07/29/24 08:15 Sodium Chloride IV CONT 0 mcg/kg/min .Q0M JOSEMANUEL 0 mls/hr Titration Protocol Fentanyl Citrate 2,500 mcg in 250 mls @ 20 mls/hr 07/29/24 08:20 07/30/24 10:30 Fentanyl 2,500 Mcg/Ns 250 Ml IV CONT 200 mcg/hr .[id number] JOSEMANUEL 20 mls/hr Titration Protocol 200 MCG/HR Insulin Aspart 3 - 6 units 07/27/24 13:00 07/30/24 09:14 Insulin Aspart (*Bkc) 100 Units/Ml SUB-Q Not Given Q4HR JOSEMANUEL Protocol Insulin Glargine 10 units 07/29/24 09:00 07/30/24 09:20 Insulin Glargine (*Bkc) 100 Units/Ml SUB-Q 10 units QAM JOSEMANUEL Administration Loratadine 10 mg 07/26/24 09:51 07/30/24 09:20 Loratadine 10 Mg Tablet FEED TUBE 10 mg QAM JOSEMANUEL Administration Methylprednisolone Sodium Succinate 30 mg 07/31/24 09:00 Methylprednisolone Sod Succ 40 Mg Vial IV PUSH QAM JOSEMANUEL Midazolam HCl 4 mg 07/28/24 23:03 07/30/24 10:30 Midazolam Hcl (*Crx) 2 Mg/2 Ml Vial IV PUSH 4 mg Q1H PRN Administration Agitation Montelukast Sodium 10 mg 07/26/24 21:00 07/29/24 20:41 Montelukast Sodium 10 Mg Tablet PO 10 mg QHS JOSEMANUEL Administration Multi-Ingred Cream/Lotion/Oil/Oint 1 applic 07/29/24 09:00 07/30/24 09:20 Mineral Oil/White Petrolatum Ointment EACH EYE 1 applic Q12HR JOSEMANUEL Administration Pantoprazole Sodium 40 mg 07/26/24 09:55 07/30/24 09:20 Pantoprazole Sodium Iv 40 Mg Vial IV PUSH 40 mg QAM JOSEMANUEL Administration Sodium Chloride 20 ml 07/26/24 10:36 Central Line Flush IV PUSH PRN PRN after blood draws Sodium Chloride 10 ml 07/26/24 10:36 Central Line Flush IV PUSH PRN PRN with TPN bag changes Sodium Chloride 10 ml 07/26/24 14:00 07/30/24 05:26 Central Line Flush IV PUSH 10 ml Q8HR JOSEMANUEL Administration Radiology Results: ITS Impressions Abdomen X-Ray 07/25/24 16:47 IMPRESSION: 1. Endotracheal tube tip 1 cm above the jose. 2. No acute cardiopulmonary disease. 3. Nasogastric tube extends into the stomach with distal tip projecting near the level of the gastroesophageal junction. Unclear with only AP projections tube extends back into the gastroesophageal junction were positioned more anteriorly in the body but superimposed over the gastroesophageal junction. Consider obtaining an oblique or crosstable lateral view for more definitive determination. Chest CT 07/25/24 17:51 IMPRESSION: 1. Minimal bilateral basal atelectasis with minimal effusion. 2. Endotracheal tube with the tip at the jose. Retraction by 2 to 3 cm is advised. 3. Left kidney stone. Renal Ultrasound 07/27/24 14:10 IMPRESSION: 1. Normal kidneys without hydronephrosis. Chest X-Ray 07/30/24 06:01 Impression: Minimal left pleural effusion with probable left basilar atelectasis. Correlate clinically for pneumonia. Support tubes, as above. Labs Labs: Laboratory Results - last 24 hr 07/29/24 07/29/24 07/29/24 16:47 20:05 23:59 WBC RBC Hgb Hct MCV MCH MCHC RDW Plt Count MPV Immature Gran % (Auto) Neut % (Auto) Lymph % (Auto) [place] % (Auto) Eos % (Auto) Baso % (Auto) Lymph # (Auto) [place] # (Auto) Eos # (Auto) Baso # (Auto) Abs Immat Gran (auto) Absolute Neuts (auto) Absolute Nucleated RBC Nucleated RBC % Puncture Site ABG pH ABG pCO2 ABG pO2 ABG PO2/FiO2 Ratio ABG HCO3 ABG O2 Saturation ABG O2 Content ABG Base Excess A-a Gradient Oxyhemoglobin Total Hemoglobin O2 Delivery Device O2 Liters/Min Minute Volume Vent Rate Vent Mode FiO2 Tidal Volume PEEP Peak Inspir Pressure Pressure Support Sodium Potassium Chloride Carbon Dioxide Anion Gap BUN Creatinine Estim Creat Clear Calc Estimated GFR Glucose POC Capillary Glucose 387 H 256 H 199 H Calcium Phosphorus Magnesium Total Bilirubin AST ALT Alkaline Phosphatase Total Protein Albumin Procalcitonin 07/30/24 07/30/24 07/30/24 04:05 04:24 05:43 WBC 15.0 H RBC 4.80 Hgb 15.1 Hct 44.2 MCV 92.1 MCH 31.5 MCHC 34.2 RDW 13.0 Plt Count 237 MPV 9.3 Immature Gran % (Auto) 1.2 H Neut % (Auto) 68.2 Lymph % (Auto) 20.0 [place] % (Auto) 9.7 H Eos % (Auto) 0.7 Baso % (Auto) 0.2 Lymph # (Auto) 3.00 [place] # (Auto) 1.5 H Eos # (Auto) 0.1 Baso # (Auto) 0.0 Abs Immat Gran (auto) 0.18 H Absolute Neuts (auto) 10.3 H Absolute Nucleated RBC 0.020 H Nucleated RBC % 0.1 Puncture Site Left radial ABG pH 7.435 ABG pCO2 46.9 H ABG pO2 61.3 L ABG PO2/FiO2 Ratio 1.36 ABG HCO3 30.8 H ABG O2 Saturation 92.0 L ABG O2 Content 19.9 ABG Base Excess 5.5 A-a Gradient 206.2 Oxyhemoglobin 90.2 Total Hemoglobin 15.7 O2 Delivery Device Ventilator O2 Liters/Min Not Reportable Minute Volume Not Reportable Vent Rate 18 Vent Mode Cmv FiO2 45 Tidal Volume 450 PEEP 8 Peak Inspir Pressure Not Reportable Pressure Support Not Reportable Sodium 139 Potassium 4.0 Chloride 100 Carbon Dioxide 31 H Anion Gap 8 BUN 31 H Creatinine 0.86 Estim Creat Clear Calc 77 Estimated GFR > 60 Glucose 166 H POC Capillary Glucose 185 H Calcium 8.8 Phosphorus 3.8 Magnesium 2.7 H Total Bilirubin 0.5 AST 31 ALT 47 Alkaline Phosphatase 104 Total Protein 6.0 L Albumin 3.6 Procalcitonin 0.2 07/30/24 07/30/24 07:36 11:29 WBC RBC Hgb Hct MCV MCH MCHC RDW Plt Count MPV Immature Gran % (Auto) Neut % (Auto) Lymph % (Auto) [place] % (Auto) Eos % (Auto) Baso % (Auto) Lymph # (Auto) [place] # (Auto) Eos # (Auto) Baso # (Auto) Abs Immat Gran (auto) Absolute Neuts (auto) Absolute Nucleated RBC Nucleated RBC % Puncture Site ABG pH ABG pCO2 ABG pO2 ABG PO2/FiO2 Ratio ABG HCO3 ABG O2 Saturation ABG O2 Content ABG Base Excess A-a Gradient Oxyhemoglobin Total Hemoglobin O2 Delivery Device O2 Liters/Min Minute Volume Vent Rate Vent Mode FiO2 Tidal Volume PEEP Peak Inspir Pressure Pressure Support Sodium Potassium Chloride Carbon Dioxide Anion Gap BUN Creatinine Estim Creat Clear Calc Estimated GFR Glucose POC Capillary Glucose 173 H 214 H Calcium Phosphorus Magnesium Total Bilirubin AST ALT Alkaline Phosphatase Total Protein Albumin Procalcitonin Quality VTE Prophylaxis VTE prophylaxis: pharmacologic ordered
--- NOTE | 2024-07-30 12:23 | PM.PNPUL ---
Progress Note: A&P Assessment and Plan (1) Status asthmaticus: Code(s): J45.902 - Unspecified asthma with status asthmaticus Status: Acute Assessment and Plan: This 68-year-old man, with normal pulmonary function testing measured 4 months ago, had had frequent coughing and wheezing, with three previous hospitalizations for obstructive airway disease over the last few months. He presented with a several-day history of progressively increasing shortness of breath and coughing. The patient?s clinical history of obstructive airway disease, combined with diagnostic studies showing eosinophilia and significant improvement with oral steroid regimens following each hospitalization, suggests uncontrolled eosinophilic asthma. COVID, influenza, RSV negative RT PCR study on 07/25/2024. The day of admission patient was exposed to inhalation of dust while he was doing yard work. The current presentation is typical for status asthmaticus, as the patient exhibited respiratory alkalosis, did not respond to bronchodilators administered in the ER, and progressed to metabolic and respiratory acidosis. Following intubation, the patient was fully sedated and paralyzed due to difficulties encountered by the director of global talent in ventilating him. Yesterday, a review of respiratory mechanics while the patient was passively ventilated showed a total respiratory resistance of 20 cm/L/sec, which is mildly elevated, and an expiratory time constant of 0.64 seconds, which is in the normal range. There was no auto PEEP. His chest CT shows mild atelectasis at the bases posteriorly and small pleural effusions, with no evidence of lower respiratory tract infection. 07/27/2024: Sputum Gram stain no epithelial cells, few Gram-positive cocci, growth of normal shefali. 07/29/24: Over the past 24 hours, the patient's respiratory status has remained stable while being fully sedated and paralyzed on mechanical ventilation. The patient did not successfully complete the weaning trial yesterday. This morning, while still sedated and paralyzed on mechanical ventilation, respiratory mechanics indicated an inspiratory resistance of 14, static compliance of 36, and an expiratory time constant of 0.53, with a peak inspiratory pressure of 22 while receiving a tidal volume of 450 mL and 8 cm of PEEP. These values are essentially normal. The physical examination revealed no wheezing. A chest X-ray showed a possible left lower lobe infiltrate or small effusion. Agitation appears to be the limiting factor for weaning. Considering the significant improvement in respiratory mechanics and the absence of wheezing on physical examination, the IV steroid dose has been reduced to once daily. A sputum culture will be ordered to investigate the possibility of left lower lobe pneumonia. The patient is not currently on antibiotics. The case was discussed with the director of global talent, and another weaning trial is planned for today. 07/30/24: patient remains sedated with propofol, Precedex and p.r.n. Versed. On turning down the propofol and Precedex the patient was able to follow simple commands but after 10 minutes became agitated, tachypneic with desaturations. This has been the pattern for him and he has been unsuccessful at tolerating a spontaneous breathing trial on lower sedation. When he was sedated he has no wheezing and low peak airway pressures. Plan: Recommend decreasing Solu-Medrol to 30 mg IV q.day, today is day 6 of systemic steroids. Continue DuoNebs q.6 hours. I will discontinue trilogy as he is high dose beta agonist and muscarinic antagonist with the DuoNebs and he is on systemic steroids. Continue montelukast 10. Chest x-ray with possible left lower lobe infiltrate and agree with CT scan to fully assess for possible pneumonia. Procalcitonin is 0.2. Repeat sputum Gram stain from 07/29/2024 with rare epithelial cells, rare white blood cells and a few mixed bacterial shefali. Cultures pending. When the patient is sedated he has no wheezing and his peak airway pressures are low indicating the absence of bronchospasm. I suspect his asthma and possible COPD have been treated adequately with 6 days of steroids and bronchodilators. It is unlikely that the patient will be able to tolerate decreasing his sedation for an acceptable spontaneous breathing trial and will likely need to decrease his sedation and proceed straight to extubation. Discussed with family in the room and Dr. Guerrier (2) Obstructive sleep apnea: Code(s): G47.33 - Obstructive sleep apnea (adult) (pediatric) Status: Acute Assessment and Plan: ENT ordered repeat split night study Dec 2022= AHI 8.4, karen 86%, optimal pressure 12 cm. 07/04/2024: outpatient pulmonary office visit Plan: He has JEISON, has been on PAP for years, had a repeat study Fall 2022 ordered by ENT office, would prefer to come here for sleep and breathing issues. He has a CPAP machine, he needs filters, needs new reservoir, tubing, masks. I have no download to review today. 07/30/2024: currently patient is intubated for his asthma exacerbation. (3) Urticaria: Code(s): L50.9 - Urticaria, unspecified Status: Acute Assessment and Plan: seen by Allergy and immunology on 04/17/2024 For hives for 1 year: Plan was to start cetirizine 10 mg twice a day, famotidine 40 mg twice a day and montelukast 10 mg q.h.s.. 07/30/24: No hives on Solu-Medrol 30 mg q.a.m., montelukast 10, Claritin 10 q.day. will follow. Subjective Date/time seen: 07/30/24 12:23 Interval history: New Consult date: 07/26/24 Chief complaint: COPD exacerbation Narrative: This is a consultation for a patient with respiratory failure who is currently intubated and fully sedated on mechanical ventilation. This report is based on information obtained from the patient's electronic chart and from the patient's , who was at the bedside. Reportedly, the patient was diagnosed with asthma, and this is the fourth hospitalization for shortness of breath and cough. According to his , the patient's respiratory problems began last August following a COVID-19 infection. In December of last year, while camping in [place], the patient developed a cough with progressively worsening shortness of breath. According to his , he was treated for obstructive airway disease. Since then, the patient has been hospitalized with similar symptoms on two more occasions: once in March at [facility] and again at [facility], where he stayed for 4 to 5 days. His diagnosis was COPD versus asthma, and the patient had been on a Trelegy inhaler and short-acting bronchodilators. After each hospitalization, he received an oral steroid regimen, which led to significant improvement for weeks, but his cough would typically return weeks after stopping the steroids. This hospitalization was prompted by a cough that became progressively worse and shortness of breath since last Tuesday. He had no other respiratory symptoms such as fever, chest pain, orthopnea, or lower extremity edema. Upon evaluation in the emergency room, initial arterial blood gases showed respiratory alkalosis. The patient was treated with nebulized short-acting bronchodilators and BiPAP support. According to ER reports, the patient became somnolent and appeared tired, and because of worsening arterial blood gases, he was intubated. Repeat arterial blood gases in the emergency room showed rising pCO2 and the development of a metabolic component, with a pH of 7.21 and pCO2 of 54 mmHg, consistent with combined respiratory and metabolic acidosis. The patient was transferred to the intensive care unit, where he is currently fully sedated and paralyzed on mechanical ventilation, receiving a tidal volume of 450 mL, total respirations of 18 (all passive), PEEP of 5 cm H2O, and FiO2 of 40%. His chest CT showed mild basal atelectasis and very small pleural effusions bilaterally. Currently, the patient is being treated for obstructive airway disease with IV steroids and nebulized short-acting bronchodilators. His eosinophil count was elevated to over 1800, and previous CBCs showed that eosinophils were similarly elevated on at least three occasions since 2021. A pulmonary function test in April of last year showed essentially normal results. 07/27/24: Patient remains intubated fully sedated and paralyzed on same ventilator settings. 07/28/24: Patient was seen early the morning when his sedative medications were discontinued and the patient was about to go on weaning trial. No new respiratory events over the last 24 hours while the patient was still on sedative paralyzing medications. He has been hemodynamically stable and has been afebrile. 07/29/24: Patient remains sedated on mechanical ventilation. Reportedly failed weaning trial yesterday. Afebrile while on tidal volume 450 peep of 8 and FiO2 45%. 07/30/24: patient remains sedated with propofol, Precedex and p.r.n. Versed. On turning down the propofol and Precedex the patient was able to follow simple commands but after 10 minutes became agitated, tachypneic with desaturations. This has been the pattern for him and he has been unsuccessful at tolerating a spontaneous breathing trial on lower sedation. When he was sedated he has no wheezing and low peak airway pressures. DATA 07/25/2024: CT diagnostic chest wo con Ordering provider: Maggie Morales, [employer] History: 68 years Male with . hypoxic . Comparison: None. Technique: CT chest without IV contrast. Radiation reduction technique utilized.The dose-length product was 390.57 mGy-cm. FINDINGS: VISUALIZED THORACIC INLET: Normal. Endotracheal tube is seen in the trachea with the tip at the jose. Nasogastric tube is seen with the tip in the distal stomach. MEDIASTINUM: Aorta/coronary arteries: Mild atheromatous disease. Heart/other: The heart is not enlarged. Lymph nodes: No mediastinal or hilar adenopathy. 1 cm paratracheal lymph node is seen. Precarinal lymph node is seen measuring 1.2 cm. Other smaller lymph nodes are seen LUNGS: Bilateral basal atelectatic changes with trace of effusion more on the right side. No pulmonary nodules or masses. No pneumothorax. VISUALIZED UPPER ABDOMEN: 5 mm stone in the left kidney upper pole. Otherwise, the visualized upper abdomen is normal. MUSCULOSKELETAL: Soft tissues: The superficial soft tissues are normal. Bones: Age appropriate degenerative changes of the spine. IMPRESSION: 1. Minimal bilateral basal atelectasis with minimal effusion. 2. Endotracheal tube with the tip at the jose. Retraction by 2 to 3 cm is advised. 3. Left kidney stone. * 04/04/2024; CXR;INDICATION: Chronic shortness of breath. TECHNIQUE: Frontal and lateral views of the chest were obtained. COMPARISON: Chest view 04/01/2024, chest CT 04/02/2024; FINDINGS: There is mild atelectasis at the lung bases. No pleural effusion or pneumothorax. The heart size is normal. IMPRESSION: 1. Mild atelectasis at the lung bases. * 04/04/2024 urine drug screen; negative for opiates, methadone, barbiturates, phencyclidine, amphetamine, benzodiazepines, cocaine, cannabinoids. * 04/03/2024; alpha-1 anti trypsin phenotype MM, normal. * 04/02/24 extended viral respiratory pathogen panel; adenovirus, rhinovirus/enterovirus, influenza A subtypes H1H3, influenza B, human metapneumovirus, RSV A/B, human parainfluenza 1/2/3. * 04/04/24; VQ scan: 04/04/2024 13:42 INDICATION: Chronic shortness of breath. TECHNIQUE: 7.9 mCi Xenon-133 was given for ventilation images. 5.4 mCi Tc-99m MAA was administered intravenously for perfusion images. Scintigraphic images of the chest were obtained. COMPARISON: Chest 2 views 04/04/2024, chest CT 04/02/2024; FINDINGS: The ventilation images demonstrate retention in the mid and lower lung zones. The perfusion images demonstrate small defects in the lower lobes. IMPRESSION: Low probability for pulmonary embolism. * 04/02/2024; echo;Definity contrast administered improved wall motion interpretation. 2. Left ventricular chamber dimension is normal. 3. Left ventricular systolic function is normal, estimated at 65-70%. 4. The left ventricular diastolic function is grade I diastolic dysfunction. 5. E/e' 7 is not elevated. 6. Left atrial chamber dimension is mildly enlarged. * 04/01/2024 CTA ; There is mild scarring at the lung apices. There is a 3 mm nodule in right upper lobe, likely benign. There is mild atelectasis bilaterally. There is mucous plugging in the lower lobes. No pleural effusion. The heart size is normal. No pericardial effusion. There are coronary artery calcifications. There is no pericardial effusion. There is no pulmonary embolus. There is severe cervical and thoracic spondylosis. IMPRESSION: No pulmonary embolus. * He had negative MRSA swab, viral swabs for influenza A/B, RSV, SARS-CoV-2. Review of Systems Review of Systems: ROS unobtainable: Yes unobtainable due to endotracheal tube Exam Const: General: healthy appearing Orientation/consciousness: oriented to person, oriented to place and oriented to time Other: At the end of the spontaneous breathing trial he was agitated and tachypneic. HENMT: Head: normal to inspection Ears: hearing grossly normal bilaterally Eyes: General: appearance normal, both eyes and all related structures Neck: Neck: normal visual inspection Chest: Chest palpation & inspection: normal inspection of the chest Resp: Effort & Inspection: normal respiratory effort and able to speak in complete sentences Auscultation: no crackles, no rales, no rhonchi, wheezes and lung sounds not diminished Cardio: Jugular venous distension: no JVD GI: Inspection: normal to inspection GI Palp: No abdominal tenderness Skin: General skin exam: normal color Neuro: General: oriented to person, oriented to place and oriented to time Extrem: General: normal to inspection Psych: Appearance: grossly normal Objective Data Vital Signs Vital Signs: Vital Signs - 24 hr 07/29/24 12:54 07/29/24 12:54 07/29/24 13:40 Temperature Pulse Rate 62 79 61 Respiratory Rate 17 17 Blood Pressure Pulse Oximetry 95 Oxygen Delivery Mechanical Ventilation Fraction of Inspired Oxygen 45 07/29/24 13:40 07/29/24 13:53 07/29/24 13:54 Temperature Pulse Rate 61 67 67 Respiratory Rate 21 H 18 18 Blood Pressure Pulse Oximetry Oxygen Delivery Fraction of Inspired Oxygen 07/29/24 14:00 07/29/24 14:00 07/29/24 14:00 Temperature 36.8 C Pulse Rate 70 70 66 Respiratory Rate 17 17 Blood Pressure 157/77 H Pulse Oximetry 96 Oxygen Delivery Fraction of Inspired Oxygen 07/29/24 14:00 07/29/24 14:38 07/29/24 16:00 Temperature Pulse Rate 65 65 61 Respiratory Rate 17 18 17 Blood Pressure Pulse Oximetry Oxygen Delivery Fraction of Inspired Oxygen 07/29/24 16:00 07/29/24 16:00 07/29/24 16:00 Temperature Pulse Rate 61 61 Respiratory Rate 17 17 Blood Pressure Pulse Oximetry Oxygen Delivery Mechanical Ventilation Fraction of Inspired Oxygen 45 07/29/24 16:00 07/29/24 16:00 07/29/24 16:00 Temperature 36.9 C Pulse Rate 61 63 Respiratory Rate 18 Blood Pressure 167/75 H Pulse Oximetry 96 Oxygen Delivery Fraction of Inspired Oxygen 45 07/29/24 16:30 07/29/24 16:45 07/29/24 17:08 Temperature Pulse Rate 64 64 64 Respiratory Rate 17 17 Blood Pressure Pulse Oximetry 96 Oxygen Delivery Mechanical Ventilation Fraction of Inspired Oxygen 45 07/29/24 18:00 07/29/24 18:00 07/29/24 18:00 Temperature 37.1 C Pulse Rate 59 L 60 60 Respiratory Rate 18 19 Blood Pressure 178/83 H Pulse Oximetry 95 Oxygen Delivery Fraction of Inspired Oxygen 07/29/24 18:05 07/29/24 18:05 07/29/24 18:07 Temperature Pulse Rate 60 65 60 Respiratory Rate 18 16 17 Blood Pressure Pulse Oximetry Oxygen Delivery Fraction of Inspired Oxygen 07/29/24 19:50 07/29/24 19:50 07/29/24 20:00 Temperature 37.3 C Pulse Rate 64 64 63 Respiratory Rate 20 20 22 H Blood Pressure 170/83 H Pulse Oximetry 94 Oxygen Delivery Fraction of Inspired Oxygen 07/29/24 20:00 07/29/24 20:00 07/29/24 20:00 Temperature Pulse Rate 62 62 62 Respiratory Rate 20 20 20 Blood Pressure Pulse Oximetry Oxygen Delivery Fraction of Inspired Oxygen 07/29/24 20:00 07/29/24 20:00 07/29/24 20:00 Temperature Pulse Rate 62 Respiratory Rate Blood Pressure Pulse Oximetry 94 Oxygen Delivery Mechanical Ventilation Fraction of Inspired Oxygen 45 45 07/29/24 20:22 07/29/24 20:36 07/29/24 21:48 Temperature Pulse Rate 57 L 57 L 62 Respiratory Rate 16 17 Blood Pressure Pulse Oximetry 93 Oxygen Delivery Mechanical Ventilation Fraction of Inspired Oxygen 45 07/29/24 21:48 07/29/24 21:57 07/29/24 21:57 Temperature Pulse Rate 62 61 61 Respiratory Rate 17 20 20 Blood Pressure Pulse Oximetry Oxygen Delivery Fraction of Inspired Oxygen 07/29/24 22:00 07/29/24 22:00 07/29/24 22:00 Temperature 37.3 C Pulse Rate 63 60 60 Respiratory Rate 22 H 19 19 Blood Pressure 175/88 H Pulse Oximetry 93 Oxygen Delivery Fraction of Inspired Oxygen 07/29/24 22:00 07/29/24 22:00 07/29/24 22:36 Temperature Pulse Rate 60 61 63 Respiratory Rate 19 18 Blood Pressure Pulse Oximetry Oxygen Delivery Fraction of Inspired Oxygen 07/29/24 22:36 07/29/24 23:07 07/30/24 00:00 Temperature 37.3 C Pulse Rate 63 62 59 L Respiratory Rate 18 22 H Blood Pressure 161/77 H Pulse Oximetry 98 94 Oxygen Delivery Mechanical Ventilation Fraction of Inspired Oxygen 45 07/30/24 00:00 07/30/24 00:00 07/30/24 00:00 Temperature Pulse Rate 60 60 60 Respiratory Rate 17 17 17 Blood Pressure Pulse Oximetry Oxygen Delivery Fraction of Inspired Oxygen 07/30/24 00:00 07/30/24 00:00 07/30/24 00:00 Temperature Pulse Rate 61 Respiratory Rate Blood Pressure Pulse Oximetry 93 Oxygen Delivery Mechanical Ventilation Fraction of Inspired Oxygen 45 45 07/30/24 01:16 07/30/24 01:16 07/30/24 01:18 Temperature Pulse Rate 60 60 60 Respiratory Rate 21 H 21 H 20 Blood Pressure Pulse Oximetry Oxygen Delivery Fraction of Inspired Oxygen 07/30/24 01:18 07/30/24 02:00 07/30/24 02:00 Temperature Pulse Rate 60 61 61 Respiratory Rate 20 18 18 Blood Pressure Pulse Oximetry Oxygen Delivery Fraction of Inspired Oxygen 07/30/24 02:00 07/30/24 02:00 07/30/24 02:00 Temperature 37.5 C Pulse Rate 61 61 61 Respiratory Rate 18 18 Blood Pressure 151/83 H Pulse Oximetry 93 Oxygen Delivery Fraction of Inspired Oxygen 07/30/24 02:00 07/30/24 02:31 07/30/24 02:43 Temperature 37.5 C Pulse Rate 60 60 64 Respiratory Rate 22 H 18 Blood Pressure 151/83 H Pulse Oximetry 93 94 Oxygen Delivery Mechanical Ventilation Fraction of Inspired Oxygen 45 07/30/24 02:53 07/30/24 04:00 07/30/24 04:00 Temperature 37.7 C H Pulse Rate 64 65 Respiratory Rate 20 22 H Blood Pressure 135/74 Pulse Oximetry 92 Oxygen Delivery Fraction of Inspired Oxygen 45 07/30/24 04:00 07/30/24 04:00 07/30/24 04:00 Temperature Pulse Rate 64 64 64 Respiratory Rate 20 20 20 Blood Pressure Pulse Oximetry Oxygen Delivery Fraction of Inspired Oxygen 07/30/24 04:00 07/30/24 04:00 07/30/24 04:29 Temperature Pulse Rate 63 60 Respiratory Rate 21 H Blood Pressure Pulse Oximetry 92 Oxygen Delivery Mechanical Ventilation Fraction of Inspired Oxygen 45 07/30/24 04:44 07/30/24 05:24 07/30/24 05:24 Temperature Pulse Rate 60 60 60 Respiratory Rate 21 H 21 H 21 H Blood Pressure Pulse Oximetry Oxygen Delivery Fraction of Inspired Oxygen 07/30/24 05:56 07/30/24 06:00 07/30/24 06:00 Temperature Pulse Rate 57 L 58 L 58 L Respiratory Rate 18 18 Blood Pressure Pulse Oximetry 92 Oxygen Delivery Mechanical Ventilation Fraction of Inspired Oxygen 45 07/30/24 06:00 07/30/24 06:00 07/30/24 06:00 Temperature 37.4 C Pulse Rate 58 L 59 L 59 L Respiratory Rate 18 17 Blood Pressure 126/66 Pulse Oximetry 91 Oxygen Delivery Fraction of Inspired Oxygen 07/30/24 07:41 07/30/24 07:41 07/30/24 08:00 Temperature 37.4 C Pulse Rate 60 60 58 L Respiratory Rate 15 15 17 Blood Pressure 116/68 Pulse Oximetry 92 Oxygen Delivery Fraction of Inspired Oxygen 07/30/24 08:00 07/30/24 08:00 07/30/24 08:00 Temperature Pulse Rate 59 L 59 L 58 L Respiratory Rate 18 18 17 Blood Pressure Pulse Oximetry Oxygen Delivery Fraction of Inspired Oxygen 07/30/24 08:00 07/30/24 08:00 07/30/24 08:00 Temperature Pulse Rate 57 L Respiratory Rate Blood Pressure Pulse Oximetry Oxygen Delivery Mechanical Ventilation Fraction of Inspired Oxygen 45 45 07/30/24 08:55 07/30/24 09:05 07/30/24 09:13 Temperature Pulse Rate 57 L 58 L 57 L Respiratory Rate 11 L 20 Blood Pressure Pulse Oximetry 92 Oxygen Delivery Mechanical Ventilation Fraction of Inspired Oxygen 45 07/30/24 09:15 07/30/24 09:17 07/30/24 09:52 Temperature Pulse Rate 53 L 56 L 59 L Respiratory Rate 13 12 20 Blood Pressure Pulse Oximetry Oxygen Delivery Fraction of Inspired Oxygen 07/30/24 09:58 07/30/24 10:00 07/30/24 10:00 Temperature 37.8 C H Pulse Rate 66 64 Respiratory Rate 17 17 Blood Pressure 122/66 Pulse Oximetry 91 Oxygen Delivery Mechanical Ventilation Fraction of Inspired Oxygen 50 07/30/24 10:00 07/30/24 10:06 07/30/24 10:16 Temperature Pulse Rate 64 66 75 Respiratory Rate 12 17 19 Blood Pressure Pulse Oximetry Oxygen Delivery Fraction of Inspired Oxygen 07/30/24 10:30 07/30/24 10:30 07/30/24 10:54 Temperature Pulse Rate 63 100 97 Respiratory Rate 35 H 35 H 23 H Blood Pressure Pulse Oximetry Oxygen Delivery Fraction of Inspired Oxygen 07/30/24 10:55 07/30/24 11:13 Temperature Pulse Rate 97 76 Respiratory Rate 23 H Blood Pressure Pulse Oximetry 93 Oxygen Delivery Mechanical Ventilation Fraction of Inspired Oxygen 60 Intake/Output Intake/Output: Intake & Output 07/27/24 07/28/24 07/29/24 07/30/24 23:59 23:59 23:59 23:59 Intake Total 2510.5 2490.6 3634.4 1656.8 Output Total 1775 2750 4980 850 Balance 735.5 -259.4 -1345.6 806.8 Meds/Results Medications: Active Medications Generic Name Dose Route Start Last Admin Trade Name Freq PRN Reason Stop Dose Admin Acetaminophen 650 mg 07/25/24 19:51 Acetaminophen Elixir 325 Mg/10.15 Ml Udc PO Q6H PRN Mild Pain (1-3) or Fever Albuterol/Ipratropium 3 ml 07/26/24 14:00 07/30/24 02:31 Ipratropium 0.5 Mg/Albuterol Sulfate 2.5 Mg Ampul.Neb 3 Ml INHALATION 3 ml Q6HRT JOSEMANUEL Administration Atorvastatin Calcium 40 mg 07/27/24 09:00 07/30/24 09:20 Atorvastatin 40 Mg Tablet PO 40 mg DAILY JOSEMANUEL Administration Dextrose 12.5 gm 07/27/24 12:28 Dextrose 50% 25 Gm/50 Ml Syringe IV PUSH PRN PRN Hypoglycemia Protocol Enoxaparin Sodium 40 mg 07/26/24 09:00 07/30/24 09:30 Enoxaparin 40 Mg/0.4 Ml Syringe SUB-Q 40 mg DAILY JOSEMANUEL Administration Fluticasone/Umeclidinium/Vilanterol 1 puff 07/27/24 08:00 07/28/24 08:45 Fluticasone/Umeclidin/Vilanter 100-62.5-25 Mcg Ellipta INHALATION Not Given DAILYRT JOSEMANUEL Glucagon 1 mg 07/27/24 12:28 Glucagon For Inj 1 Mg Vial IM PRN PRN Hypoglycemia Protocol Glucose 15 gm 07/27/24 12:28 Glucose Oral Gel 15 Gm Of Glucse In 37.5 Gm Tube PO PRN PRN Hypoglycemia Protocol Hydralazine HCl 10 mg 07/25/24 19:41 07/29/24 00:51 Hydralazine Hcl 20 Mg/Ml Vial IV PUSH 10 mg Q8H PRN Administration BP greater than 180/90 Propofol 100 mls @ 24.9 mls/hr 07/25/24 23:05 07/30/24 10:30 Diprivan IV CONT 50 mcg/kg/min .Q4H1M JOSEMANUEL 24.9 mls/hr Titration Protocol 50 MCG/KG/MIN Norepinephrine Bitartrate 8 mg in 250 mls @ 9.375 mls/hr 07/26/24 14:40 07/27/24 21:17 Levophed 8 Mg/D5w 250 Ml IV CONT Not Given .Q24H JOSEMANUEL Protocol 5 MCG/MIN Dextrose 1,000 mls @ 100 mls/hr 07/27/24 12:28 Dextrose 5% 1,000 Ml IVPB PRN PRN Hypoglycemia Protocol Dexmedetomidine HCl 400 mcg in 100 mls @ 31.2 mls/hr 07/28/24 02:05 07/30/24 10:55 Precedex 400 Mcg/100 Ml IV CONT 1.5 mcg/kg/hr .Q3H13M JOSEMANUEL 31.2 mls/hr Administration Protocol 1.5 MCG/KG/HR Cisatracurium Besylate 200 mg/ 100 mls @ 0 mls/hr 07/28/24 23:05 07/29/24 08:15 Sodium Chloride IV CONT 0 mcg/kg/min .Q0M JOSEMANUEL 0 mls/hr Titration Protocol Fentanyl Citrate 2,500 mcg in 250 mls @ 20 mls/hr 07/29/24 08:20 07/30/24 10:30 Fentanyl 2,500 Mcg/Ns 250 Ml IV CONT 200 mcg/hr .[id number] JOSEMANUEL 20 mls/hr Titration Protocol 200 MCG/HR Insulin Aspart 3 - 6 units 07/27/24 13:00 07/30/24 09:14 Insulin Aspart (*Bkc) 100 Units/Ml SUB-Q Not Given Q4HR ON LICENSE OF [facility] Protocol Insulin Glargine 10 units 07/29/24 09:00 07/30/24 09:20 Insulin Glargine (*Bkc) 100 Units/Ml SUB-Q 10 units QAM JOSEMANUEL Administration Loratadine 10 mg 07/26/24 09:51 07/30/24 09:20 Loratadine 10 Mg Tablet FEED TUBE 10 mg QAM JOSEMANUEL Administration Methylprednisolone Sodium Succinate 30 mg 07/31/24 09:00 Methylprednisolone Sod Succ 40 Mg Vial IV PUSH QAM JOSEMANUEL Midazolam HCl 4 mg 07/28/24 23:03 07/30/24 10:30 Midazolam Hcl (*Crx) 2 Mg/2 Ml Vial IV PUSH 4 mg Q1H PRN Administration Agitation Montelukast Sodium 10 mg 07/26/24 21:00 07/29/24 20:41 Montelukast Sodium 10 Mg Tablet PO 10 mg QHS JOSEMANUEL Administration Multi-Ingred Cream/Lotion/Oil/Oint 1 applic 07/29/24 09:00 07/30/24 09:20 Mineral Oil/White Petrolatum Ointment EACH EYE 1 applic Q12HR JOSEMANUEL Administration Pantoprazole Sodium 40 mg 07/26/24 09:55 07/30/24 09:20 Pantoprazole Sodium Iv 40 Mg Vial IV PUSH 40 mg QAM JOSEMANUEL Administration Sodium Chloride 20 ml 07/26/24 10:36 Central Line Flush IV PUSH PRN PRN after blood draws Sodium Chloride 10 ml 07/26/24 10:36 Central Line Flush IV PUSH PRN PRN with TPN bag changes Sodium Chloride 10 ml 07/26/24 14:00 07/30/24 05:26 Central Line Flush IV PUSH 10 ml Q8HR JOSEMANUEL Administration Radiology Results: ITS Impressions Abdomen X-Ray 07/25/24 16:47 IMPRESSION: 1. Endotracheal tube tip 1 cm above the jose. 2. No acute cardiopulmonary disease. 3. Nasogastric tube extends into the stomach with distal tip projecting near the level of the gastroesophageal junction. Unclear with only AP projections tube extends back into the gastroesophageal junction were positioned more anteriorly in the body but superimposed over the gastroesophageal junction. Consider obtaining an oblique or crosstable lateral view for more definitive determination. Renal Ultrasound 07/27/24 14:10 IMPRESSION: 1. Normal kidneys without hydronephrosis. Chest X-Ray 07/30/24 06:01 Impression: Minimal left pleural effusion with probable left basilar atelectasis. Correlate clinically for pneumonia. Support tubes, as above. Labs Labs: Laboratory Results - last 24 hr 07/29/24 07/29/24 07/29/24 16:47 20:05 23:59 WBC RBC Hgb Hct MCV MCH MCHC RDW Plt Count MPV Immature Gran % (Auto) Neut % (Auto) Lymph % (Auto) [place] % (Auto) Eos % (Auto) Baso % (Auto) Lymph # (Auto) [place] # (Auto) Eos # (Auto) Baso # (Auto) Abs Immat Gran (auto) Absolute Neuts (auto) Absolute Nucleated RBC Nucleated RBC % Puncture Site ABG pH ABG pCO2 ABG pO2 ABG PO2/FiO2 Ratio ABG HCO3 ABG O2 Saturation ABG O2 Content ABG Base Excess A-a Gradient Oxyhemoglobin Total Hemoglobin O2 Delivery Device O2 Liters/Min Minute Volume Vent Rate Vent Mode FiO2 Tidal Volume PEEP Peak Inspir Pressure Pressure Support Sodium Potassium Chloride Carbon Dioxide Anion Gap BUN Creatinine Estim Creat Clear Calc Estimated GFR Glucose POC Capillary Glucose 387 H 256 H 199 H Calcium Phosphorus Magnesium Total Bilirubin AST ALT Alkaline Phosphatase Total Protein Albumin Procalcitonin 0307/30/24 07/30/24 04:05 04:24 05:43 WBC 15.0 H RBC 4.80 Hgb 15.1 Hct 44.2 MCV 92.1 MCH 31.5 MCHC 34.2 RDW 13.0 Plt Count 237 MPV 9.3 Immature Gran % (Auto) 1.2 H Neut % (Auto) 68.2 Lymph % (Auto) 20.0 [place] % (Auto) 9.7 H Eos % (Auto) 0.7 Baso % (Auto) 0.2 Lymph # (Auto) 3.00 [place] # (Auto) 1.5 H Eos # (Auto) 0.1 Baso # (Auto) 0.0 Abs Immat Gran (auto) 0.18 H Absolute Neuts (auto) 10.3 H Absolute Nucleated RBC 0.020 H Nucleated RBC % 0.1 Puncture Site Left radial ABG pH 7.435 ABG pCO2 46.9 H ABG pO2 61.3 L ABG PO2/FiO2 Ratio 1.36 ABG HCO3 30.8 H ABG O2 Saturation 92.0 L ABG O2 Content 19.9 ABG Base Excess 5.5 A-a Gradient 206.2 Oxyhemoglobin 90.2 Total Hemoglobin 15.7 O2 Delivery Device Ventilator O2 Liters/Min Not Reportable Minute Volume Not Reportable Vent Rate 18 Vent Mode Cmv FiO2 45 Tidal Volume 450 PEEP 8 Peak Inspir Pressure Not Reportable Pressure Support Not Reportable Sodium 139 Potassium 4.0 Chloride 100 Carbon Dioxide 31 H Anion Gap 8 BUN 31 H Creatinine 0.86 Estim Creat Clear Calc 77 Estimated GFR > 60 Glucose 166 H POC Capillary Glucose 185 H Calcium 8.8 Phosphorus 3.8 Magnesium 2.7 H Total Bilirubin 0.5 AST 31 ALT 47 Alkaline Phosphatase 104 Total Protein 6.0 L Albumin 3.6 Procalcitonin 0.2 07/30/24 07/30/24 07:36 11:29 WBC RBC Hgb Hct MCV MCH MCHC RDW Plt Count MPV Immature Gran % (Auto) Neut % (Auto) Lymph % (Auto) [place] % (Auto) Eos % (Auto) Baso % (Auto) Lymph # (Auto) [place] # (Auto) Eos # (Auto) Baso # (Auto) Abs Immat Gran (auto) Absolute Neuts (auto) Absolute Nucleated RBC Nucleated RBC % Puncture Site ABG pH ABG pCO2 ABG pO2 ABG PO2/FiO2 Ratio ABG HCO3 ABG O2 Saturation ABG O2 Content ABG Base Excess A-a Gradient Oxyhemoglobin Total Hemoglobin O2 Delivery Device O2 Liters/Min Minute Volume Vent Rate Vent Mode FiO2 Tidal Volume PEEP Peak Inspir Pressure Pressure Support Sodium Potassium Chloride Carbon Dioxide Anion Gap BUN Creatinine Estim Creat Clear Calc Estimated GFR Glucose POC Capillary Glucose 173 H 214 H Calcium Phosphorus Magnesium Total Bilirubin AST ALT Alkaline Phosphatase Total Protein Albumin Procalcitonin
[2024-07-30] MEDS: FENTANYL 2,500MCG/NS250ML(*CRX 2,500 MCG/250 ML BAG 20 MCG IV CONT (12:30)
[2024-07-30 12:45] LABS: Glucose Point of Care 180 mg/dl (65-105)
[2024-07-30] MEDS: CEFEPIME 2 GM/NS 50 ML 2 GM/50 ML BAG IVPB (15:54)
[2024-07-30] MEDS: VANCOMYCIN 2,000 MG/NS 500 ML 2,000 MG/500 ML BAG 250 MG IVPB (15:55)
[2024-07-30 16:36] LABS: Glucose Point of Care 168 mg/dl (65-105)
[2024-07-30 17:44] LABS: MRSA (PCR) NOT DETECTED (NOT DETECTE)
[2024-07-30 19:55] LABS: Glucose Point of Care 162 mg/dl (65-105)
[2024-07-30] MEDS: MONTELUKAST SODIUM 10 MG TABLET PO (19:59)
[2024-07-30 23:46] LABS: Glucose Point of Care 141 mg/dl (65-105)
[2024-07-31] VITALS (52 sets, daily range): BP systolic 104–172; BP diastolic 63–98; PULSE 59–147; RESP 12–26; TEMP 37.2–38.7; O2SAT 92–98
[2024-07-31] MEDS: dexmedeTOMIDine 400 MCG/100 ML 400 MCG/100 ML BAG 31.2 MCG IV CONT ×4 (00:16→10:14)
[2024-07-31] MEDS: FENTANYL 2,500MCG/NS250ML(*CRX 2,500 MCG/250 ML BAG 20 MCG IV CONT (01:06)
[2024-07-31] MEDS: PROPOFOL IV EMULSION 100 ML 24.9 MG IV CONT ×3 (01:06→08:57)
[2024-07-31] MEDS: MIDAZOLAM HCL (*CRX) 2 MG/2 ML VIAL 4 MG IV PUSH (01:09)
[2024-07-31] MEDS: IPRATROPIUM 0.5 MG/ALBUTEROL SULFATE 2.5 MG AMPUL.NEB 3 ML INHALATION ×2 (02:13→08:10)
[2024-07-31] MEDS: CEFEPIME 2 GM/NS 50 ML 2 GM/50 ML BAG IVPB ×2 (02:54→15:39)
[2024-07-31 03:48] LABS: Glucose Point of Care 156 mg/dl (65-105)
[2024-07-31 04:07] LABS: Basophils Percent Auto 0.2 % (0.2-1.2); Eosinophils Absolute Auto 0.8 K/mm3 (0-0.3); Eosinophils Percent Auto 4.1 % (0-4.4); Hematocrit 41.3 % (42.0-52.0); Hemoglobin 14.3 g/dL (14.0-18.0); Immature Granulocyte Absolute 0.27 K/mm3 (0.00-0.031); Immature Granulocyte Percent A 1.4 % (0-0.5); Lymphocytes Absolute Auto 2.44 K/mm3 (0.9-3.2); Lymphocytes Percent Auto 12.9 % (18.3-44.2); Mean Corpuscular HGB Conc 34.6 g/dl (32-36); Mean Corpuscular Hemoglobin 32.4 pg (26-34); Mean Corpuscular Volume 93.4 fl (80-100); Mean Platelet Volume 9.4 fl (7.4-10.4); Monocytes Absolute Auto 1.7 K/mm3 (0.1-0.6); Monocytes Percent Auto 8.8 % (2.6-8.5); Neutrophils Absolute Auto 13.7 K/mm3 (1.3-6.7); Neutrophils Percent Auto 72.6 % (45.5-73.1); Platelet Count Result 203 k/mm3 (150-375); Red Blood Count 4.42 M/mm3 (4.6-6.20); Red Cell Distribution Width 13.1 % (11.5-14.5); White Blood Count 18.9 K/mm3 (4.5-10.0)
[2024-07-31 04:18] LABS: Triglycerides 140 mg/dL (<150)
[2024-07-31 04:24] LABS: Alveolar/Arterial O2 Gradient 294.3 mmHg; Base Excess ABG 2.4 mEq/l (+/-2.0); Carboxyhemoglobin 0.5 % THb (0-2.0); Fractional Inspired Oxygen 60 %; HCO3 ABG 26.3 mEq/l (22.0-26.0); Oxygen Content ABG 20.9 %vol (16.0-22.0); Oxygen Saturation ABG 97.4 % (95.0-100.0); Oxyhemoglobin 96.9 % THb (90.0-100.0); PCO2 ABG 38.2 mmHg (35.0-45.0); PO2 ABG 91.5 mmHg (80.0-100.0); PO2 FiO2 Ratio Arterial Blood 1.52 %; Reduced Hemoglobin 2.6 %THb (0-5.0); Total Hemoglobin 15.3 g/dL (12.0-18.0); pH ABG 7.455 (7.350-7.450)
[2024-07-31 04:26] LABS: Device VENTILATOR; Modified Allen's Test Pass; Site Drawn RIGHT RADIAL
[2024-07-31 04:27] LABS: Arterial Blood Gas PEEP 8 cmH2O; Arterial Blood Gas Tidal Volume 450 ml; Arterial Blood Gas Vent Mode CMV; Arterial Blood Gas Ventilator rate 18 /MIN
[2024-07-31 05:30] LABS: Alanine Aminotransferase 43 U/L (6-50); Alkaline Phosphatase 92 U/L (38-126); Anion Gap 6 mmol/L (4-12); Aspartate Amino Transferase 25 U/L (17-59); Bilirubin,Total 0.5 mg/dL (0.2-1.3); Blood Urea Nitrogen 38 mg/dL (9-20); Calcium 8.1 mg/dL (8.4-10.2); Carbon Dioxide 28 mmol/L (22-30); Chloride 103 mmol/L (98-107); Estimated CRCL calculation 87 ml/min; Estimated Glomerular Filt Rate > 60; Glucose 140 mg/dL (65-110); Magnesium 2.4 mg/dL (1.6-2.3); Phosphorus 3.5 mg/dL (2.5-4.5); Potassium 4.1 mmol/L (3.4-5.0); Sodium 137 mmol/L (137-145)
[2024-07-31] MEDS: CENTRAL LINE FLUSH 10 ML IV PUSH ×3 (06:34→20:36)
--- NOTE | 2024-07-31 08:56 | PM.PNPUL ---
Progress Note: A&P Assessment and Plan (1) Status asthmaticus: Code(s): J45.902 - Unspecified asthma with status asthmaticus Status: Acute Assessment and Plan: This 68-year-old man, with normal pulmonary function testing measured 4 months ago, had had frequent coughing and wheezing, with three previous hospitalizations for obstructive airway disease over the last few months. He presented with a several-day history of progressively increasing shortness of breath and coughing. The patient?s clinical history of obstructive airway disease, combined with diagnostic studies showing eosinophilia and significant improvement with oral steroid regimens following each hospitalization, suggests uncontrolled eosinophilic asthma. COVID, influenza, RSV negative RT PCR study on 07/25/2024. The day of admission patient was exposed to inhalation of dust while he was doing yard work. The current presentation is typical for status asthmaticus, as the patient exhibited respiratory alkalosis, did not respond to bronchodilators administered in the ER, and progressed to metabolic and respiratory acidosis. Following intubation, the patient was fully sedated and paralyzed due to difficulties encountered by the patch sander in ventilating him. Yesterday, a review of respiratory mechanics while the patient was passively ventilated showed a total respiratory resistance of 20 cm/L/sec, which is mildly elevated, and an expiratory time constant of 0.64 seconds, which is in the normal range. There was no auto PEEP. His chest CT shows mild atelectasis at the bases posteriorly and small pleural effusions, with no evidence of lower respiratory tract infection. 07/27/2024: Sputum Gram stain no epithelial cells, few Gram-positive cocci, growth of normal shefali. 07/29/24: Over the past 24 hours, the patient's respiratory status has remained stable while being fully sedated and paralyzed on mechanical ventilation. The patient did not successfully complete the weaning trial yesterday. This morning, while still sedated and paralyzed on mechanical ventilation, respiratory mechanics indicated an inspiratory resistance of 14, static compliance of 36, and an expiratory time constant of 0.53, with a peak inspiratory pressure of 22 while receiving a tidal volume of 450 mL and 8 cm of PEEP. These values are essentially normal. The physical examination revealed no wheezing. A chest X-ray showed a possible left lower lobe infiltrate or small effusion. Agitation appears to be the limiting factor for weaning. Considering the significant improvement in respiratory mechanics and the absence of wheezing on physical examination, the IV steroid dose has been reduced to once daily. A sputum culture will be ordered to investigate the possibility of left lower lobe pneumonia. The patient is not currently on antibiotics. The case was discussed with the patch sander, and another weaning trial is planned for today. 07/30/24: patient remains sedated with propofol, Precedex and p.r.n. Versed. On turning down the propofol and Precedex the patient was able to follow simple commands but after 10 minutes became agitated, tachypneic with desaturations. This has been the pattern for him and he has been unsuccessful at tolerating a spontaneous breathing trial on lower sedation. When he was sedated he has no wheezing and low peak airway pressures. Plan: Recommend decreasing Solu-Medrol to 30 mg IV q.day, today is day 6 of systemic steroids. Continue DuoNebs q.6 hours. I will discontinue trilogy as he is high dose beta agonist and muscarinic antagonist with the DuoNebs and he is on systemic steroids. Continue montelukast 10. Chest x-ray with possible left lower lobe infiltrate and agree with CT scan to fully assess for possible pneumonia. Procalcitonin is 0.2. Repeat sputum Gram stain from 07/29/2024 with rare epithelial cells, rare white blood cells and a few mixed bacterial shefali. Cultures pending. When the patient is sedated he has no wheezing and his peak airway pressures are low indicating the absence of bronchospasm. I suspect his asthma and possible COPD have been treated adequately with 6 days of steroids and bronchodilators. It is unlikely that the patient will be able to tolerate decreasing his sedation for an acceptable spontaneous breathing trial and will likely need to decrease his sedation and proceed straight to extubation. Later in the day patient had a CT scan of the chest demonstrating minimal right upper lobe infiltrate, minimal left lower lobe greater than right lower lobe basilar infiltrate with no focal consolidations or evidence of emphysema. Empirically started on vancomycin and cefepime for possible pneumonia with fever, increased secretions and these minimal infiltrates. 07/31/2024: Patient remains intubated and sedated with fentanyl 200, propofol 50 and Precedex 1.5. he is on tidal volume of 450 with peak airway pressure is 20 and 60% with a PEEP of 8. ABG 7.45/38/92. White blood cell count 18.9, creatinine 0.75. He is afebrile. Plan: Patient on Solu-Medrol 30 mg IV q.day, day 7 of systemic steroids. DuoNebs q.6 hours. Montelukast 10. I will add budesonide 500 mcg b.i.d. and plan to decrease Solu-Medrol to 20 q.day starting 08/01/2024. agree with vancomycin and cefepime for possible pneumonia, both day 2. Agree with plan to decrease his sedation and once he can follow simple commands proceed straight to extubation as he has been unable to tolerate being on lower dose of sedation for a spontaneous breathing trial. Discussed with in the room and Dr. Guerrier (2) Obstructive sleep apnea: Code(s): G47.33 - Obstructive sleep apnea (adult) (pediatric) Status: Acute Assessment and Plan: ENT ordered repeat split night study Dec 2022= AHI 8.4, akren 86%, optimal pressure 12 cm. 07/04/2024: outpatient pulmonary office visit Plan: He has JEISON, has been on PAP for years, had a repeat study Fall 2022 ordered by ENT office, would prefer to come here for sleep and breathing issues. He has a CPAP machine, he needs filters, needs new reservoir, tubing, masks. I have no download to review today. 07/30/2024: currently patient is intubated for his asthma exacerbation. 07/31/24: Once patient is Successfully extubated will place on CPAP 12 at night. will attempt to obtain download from his [employer] which we think is IV respiratory care. (3) Urticaria: Code(s): L50.9 - Urticaria, unspecified Status: Acute Assessment and Plan: seen by Allergy and immunology on 04/17/2024 For hives for 1 year: Plan was to start cetirizine 10 mg twice a day, famotidine 40 mg twice a day and montelukast 10 mg q.h.s.. 07/30/24: No hives on Solu-Medrol 30 mg q.a.m., montelukast 10, Claritin 10 q.day. will follow. Subjective Date/time seen: 07/31/24 08:56 Interval history: New Consult date: 07/26/24 Chief complaint: COPD exacerbation Narrative: This is a consultation for a patient with respiratory failure who is currently intubated and fully sedated on mechanical ventilation. This report is based on information obtained from the patient's electronic chart and from the patient's , who was at the bedside. Reportedly, the patient was diagnosed with asthma, and this is the fourth hospitalization for shortness of breath and cough. According to his , the patient's respiratory problems began last August following a COVID-19 infection. In December of last year, while camping in [place], the patient developed a cough with progressively worsening shortness of breath. According to his , he was treated for obstructive airway disease. Since then, the patient has been hospitalized with similar symptoms on two more occasions: once in March at [facility] and again at [facility], where he stayed for 4 to 5 days. His diagnosis was COPD versus asthma, and the patient had been on a Trelegy inhaler and short-acting bronchodilators. After each hospitalization, he received an oral steroid regimen, which led to significant improvement for weeks, but his cough would typically return weeks after stopping the steroids. This hospitalization was prompted by a cough that became progressively worse and shortness of breath since last Tuesday. He had no other respiratory symptoms such as fever, chest pain, orthopnea, or lower extremity edema. Upon evaluation in the emergency room, initial arterial blood gases showed respiratory alkalosis. The patient was treated with nebulized short-acting bronchodilators and BiPAP support. According to ER reports, the patient became somnolent and appeared tired, and because of worsening arterial blood gases, he was intubated. Repeat arterial blood gases in the emergency room showed rising pCO2 and the development of a metabolic component, with a pH of 7.21 and pCO2 of 54 mmHg, consistent with combined respiratory and metabolic acidosis. The patient was transferred to the intensive care unit, where he is currently fully sedated and paralyzed on mechanical ventilation, receiving a tidal volume of 450 mL, total respirations of 18 (all passive), PEEP of 5 cm H2O, and FiO2 of 40%. His chest CT showed mild basal atelectasis and very small pleural effusions bilaterally. Currently, the patient is being treated for obstructive airway disease with IV steroids and nebulized short-acting bronchodilators. His eosinophil count was elevated to over 1800, and previous CBCs showed that eosinophils were similarly elevated on at least three occasions since 2021. A pulmonary function test in April of last year showed essentially normal results. 07/27/24: Patient remains intubated fully sedated and paralyzed on same ventilator settings. 07/28/24: Patient was seen early the morning when his sedative medications were discontinued and the patient was about to go on weaning trial. No new respiratory events over the last 24 hours while the patient was still on sedative paralyzing medications. He has been hemodynamically stable and has been afebrile. 07/29/24: Patient remains sedated on mechanical ventilation. Reportedly failed weaning trial yesterday. Afebrile while on tidal volume 450 peep of 8 and FiO2 45%. 07/30/24: patient remains sedated with propofol, Precedex and p.r.n. Versed. On turning down the propofol and Precedex the patient was able to follow simple commands but after 10 minutes became agitated, tachypneic with desaturations. This has been the pattern for him and he has been unsuccessful at tolerating a spontaneous breathing trial on lower sedation. When he was sedated he has no wheezing and low peak airway pressures. Later in the day patient had a CT scan of the chest demonstrating minimal right upper lobe infiltrate, minimal left lower lobe greater than right lower lobe basilar infiltrate with no focal consolidations or evidence of emphysema. Empirically started on vancomycin and cefepime for possible pneumonia with fever, increased secretions and these minimal infiltrates. 07/31/2024: Patient remains intubated and sedated with fentanyl 200, propofol 50 and Precedex 1.5. he is on tidal volume of 450 with peak airway pressure is 20 and 60% with a PEEP of 8. ABG 7.45/38/92. White blood cell count 18.9, creatinine 0.75. He is afebrile. DATA: 07/30/24: EXAMINATION:CT diagnostic chest wo con DATE: 07/30/2024 12:23 INDICATION: Acute respiratory failure. TECHNIQUE: Computed tomography (CT) of the chest was performed without intravenous contrast. Automated exposure control and iterative reconstruction technique were employed. The dose-length product (DLP) was 532.14 mGy-cm. COMPARISON: Chest CT 07/25/2024 FINDINGS: There are mild airspace opacities in right upper lobe. There are airspace opacities with volume loss involving the lower lobes, left worse than right. There is a 4 mm nodule in right upper lobe, likely benign. There is a trace left pleural effusion. The heart size is normal. There are coronary artery calcifications. No pericardial effusion. There is an endotracheal tube tip is in expected position. The nasogastric tube tip is in the stomach. A left upper extremity peripherally inserted central venous catheter (PICC) is seen with tip in the right atrium. There is a 4 mm stone in left kidney. There is severe cervical spondylosis and mild thoracic spondylosis. IMPRESSION: 1. Mild airspace opacities in right upper lobe, consistent with atelectasis versus pneumonia. 2. Airspace opacities in the lower lungs with volume loss, left worse than right, likely atelectasis. 07/25/2024: CT diagnostic chest wo con Ordering provider: Maggie Morales APRN History: 68 years Male with . hypoxic . Comparison: None. Technique: CT chest without IV contrast. Radiation reduction technique utilized.The dose-length product was 390.57 mGy-cm. FINDINGS: VISUALIZED THORACIC INLET: Normal. Endotracheal tube is seen in the trachea with the tip at the jose. Nasogastric tube is seen with the tip in the distal stomach. MEDIASTINUM: Aorta/coronary arteries: Mild atheromatous disease. Heart/other: The heart is not enlarged. Lymph nodes: No mediastinal or hilar adenopathy. 1 cm paratracheal lymph node is seen. Precarinal lymph node is seen measuring 1.2 cm. Other smaller lymph nodes are seen LUNGS: Bilateral basal atelectatic changes with trace of effusion more on the right side. No pulmonary nodules or masses. No pneumothorax. VISUALIZED UPPER ABDOMEN: 5 mm stone in the left kidney upper pole. Otherwise, the visualized upper abdomen is normal. MUSCULOSKELETAL: Soft tissues: The superficial soft tissues are normal. Bones: Age appropriate degenerative changes of the spine. IMPRESSION: 1. Minimal bilateral basal atelectasis with minimal effusion. 2. Endotracheal tube with the tip at the jose. Retraction by 2 to 3 cm is advised. 3. Left kidney stone. * 04/04/2024; CXR;INDICATION: Chronic shortness of breath. TECHNIQUE: Frontal and lateral views of the chest were obtained. COMPARISON: Chest view 04/01/2024, chest CT 04/02/2024; FINDINGS: There is mild atelectasis at the lung bases. No pleural effusion or pneumothorax. The heart size is normal. IMPRESSION: 1. Mild atelectasis at the lung bases. * 04/04/2024 urine drug screen; negative for opiates, methadone, barbiturates, phencyclidine, amphetamine, benzodiazepines, cocaine, cannabinoids. * 04/03/2024; alpha-1 anti trypsin phenotype MM, normal. * 04/02/24 extended viral respiratory pathogen panel; adenovirus, rhinovirus/enterovirus, influenza A subtypes H1H3, influenza B, human metapneumovirus, RSV A/B, human parainfluenza 1/2/3. * 04/04/24; VQ scan: 04/04/2024 13:42 INDICATION: Chronic shortness of breath. TECHNIQUE: 7.9 mCi Xenon-133 was given for ventilation images. 5.4 mCi Tc-99m MAA was administered intravenously for perfusion images. Scintigraphic images of the chest were obtained. COMPARISON: Chest 2 views 04/04/2024, chest CT 04/02/2024; FINDINGS: The ventilation images demonstrate retention in the mid and lower lung zones. The perfusion images demonstrate small defects in the lower lobes. IMPRESSION: Low probability for pulmonary embolism. * 04/02/2024; echo;Definity contrast administered improved wall motion interpretation. 2. Left ventricular chamber dimension is normal. 3. Left ventricular systolic function is normal, estimated at 65-70%. 4. The left ventricular diastolic function is grade I diastolic dysfunction. 5. E/e' 7 is not elevated. 6. Left atrial chamber dimension is mildly enlarged. * 04/01/2024 CTA ; There is mild scarring at the lung apices. There is a 3 mm nodule in right upper lobe, likely benign. There is mild atelectasis bilaterally. There is mucous plugging in the lower lobes. No pleural effusion. The heart size is normal. No pericardial effusion. There are coronary artery calcifications. There is no pericardial effusion. There is no pulmonary embolus. There is severe cervical and thoracic spondylosis. IMPRESSION: No pulmonary embolus. * He had negative MRSA swab, viral swabs for influenza A/B, RSV, SARS-CoV-2. Review of Systems Review of Systems: All systems reviewed & are unremarkable except as noted in HPI and below ROS unobtainable: Yes unobtainable due to endotracheal tube and unobtainable due to medical condition Exam Const: General: healthy appearing Orientation/consciousness: oriented to person, oriented to place and oriented to time Other: At the end of the spontaneous breathing trial he was agitated and tachypneic. HENMT: Head: normal to inspection Ears: hearing grossly normal bilaterally Eyes: General: appearance normal, both eyes and all related structures Neck: Neck: normal visual inspection Chest: Chest palpation & inspection: normal inspection of the chest Resp: Effort & Inspection: normal respiratory effort and able to speak in complete sentences Auscultation: no crackles, no rales, no rhonchi, wheezes and lung sounds not diminished Other: no wheezing while sedated on the ventilator. Peak airway pressure 20 Cardio: Jugular venous distension: no JVD GI: Inspection: normal to inspection Skin: General skin exam: normal color Neuro: Other: sedated Extrem: General: normal to inspection Objective Data Vital Signs Vital Signs: Vital Signs - 24 hr 07/30/24 09:05 07/30/24 09:13 07/30/24 09:15 Temperature Pulse Rate 58 L 57 L 53 L Respiratory Rate 11 L 20 13 Blood Pressure Pulse Oximetry Oxygen Delivery Fraction of Inspired Oxygen 07/30/24 09:17 07/30/24 09:52 07/30/24 09:58 Temperature Pulse Rate 56 L 59 L 66 Respiratory Rate 12 20 17 Blood Pressure Pulse Oximetry Oxygen Delivery Fraction of Inspired Oxygen 07/30/24 10:00 07/30/24 10:00 07/30/24 10:00 Temperature 37.8 C H Pulse Rate 64 64 Respiratory Rate 17 12 Blood Pressure 122/66 Pulse Oximetry 91 Oxygen Delivery Mechanical Ventilation Fraction of Inspired Oxygen 50 07/30/24 10:00 07/30/24 10:00 07/30/24 10:06 Temperature Pulse Rate 64 64 66 Respiratory Rate 17 17 Blood Pressure Pulse Oximetry Oxygen Delivery Fraction of Inspired Oxygen 07/30/24 10:16 07/30/24 10:30 07/30/24 10:30 Temperature Pulse Rate 75 63 100 Respiratory Rate 19 35 H 35 H Blood Pressure Pulse Oximetry Oxygen Delivery Fraction of Inspired Oxygen 07/30/24 10:54 07/30/24 10:55 07/30/24 11:00 Temperature Pulse Rate 97 97 92 Respiratory Rate 23 H 23 H 20 Blood Pressure Pulse Oximetry Oxygen Delivery Fraction of Inspired Oxygen 07/30/24 11:13 07/30/24 12:00 07/30/24 12:00 Temperature Pulse Rate 76 92 92 Respiratory Rate 16 16 Blood Pressure Pulse Oximetry 93 Oxygen Delivery Mechanical Ventilation Fraction of Inspired Oxygen 60 07/30/24 12:00 07/30/24 12:00 07/30/24 12:00 Temperature Pulse Rate 92 93 Respiratory Rate 16 Blood Pressure Pulse Oximetry Oxygen Delivery Mechanical Ventilation Fraction of Inspired Oxygen 60 07/30/24 12:00 07/30/24 12:00 07/30/24 12:30 Temperature 38.3 C H Pulse Rate 92 91 Respiratory Rate 16 15 Blood Pressure 122/72 Pulse Oximetry 96 Oxygen Delivery Fraction of Inspired Oxygen 60 07/30/24 12:30 07/30/24 14:00 07/30/24 14:00 Temperature Pulse Rate 91 65 65 Respiratory Rate 15 14 14 Blood Pressure Pulse Oximetry Oxygen Delivery Fraction of Inspired Oxygen 07/30/24 14:00 07/30/24 14:00 07/30/24 14:00 Temperature 38.0 C H Pulse Rate 68 68 68 Respiratory Rate 20 20 Blood Pressure 129/69 Pulse Oximetry 95 Oxygen Delivery Fraction of Inspired Oxygen 07/30/24 14:08 07/30/24 14:08 07/30/24 14:56 Temperature Pulse Rate 65 65 64 Respiratory Rate 19 19 Blood Pressure Pulse Oximetry 95 Oxygen Delivery Mechanical Ventilation Fraction of Inspired Oxygen 60 07/30/24 14:56 07/30/24 15:14 07/30/24 16:00 Temperature 37.8 C H Pulse Rate 64 69 70 Respiratory Rate 23 H 23 H 21 H Blood Pressure 135/76 Pulse Oximetry 97 Oxygen Delivery Fraction of Inspired Oxygen 07/30/24 16:00 07/30/24 16:00 07/30/24 16:00 Temperature Pulse Rate 66 Respiratory Rate Blood Pressure Pulse Oximetry Oxygen Delivery Mechanical Ventilation Fraction of Inspired Oxygen 60 60 07/30/24 16:00 07/30/24 16:00 07/30/24 16:00 Temperature Pulse Rate 70 70 70 Respiratory Rate 21 H 21 H 21 H Blood Pressure Pulse Oximetry Oxygen Delivery Fraction of Inspired Oxygen 07/30/24 17:07 07/30/24 17:21 07/30/24 17:21 Temperature Pulse Rate 65 62 62 Respiratory Rate 20 20 Blood Pressure Pulse Oximetry 98 Oxygen Delivery Mechanical Ventilation Fraction of Inspired Oxygen 60 07/30/24 17:30 07/30/24 17:30 07/30/24 18:00 Temperature 37.4 C Pulse Rate 62 61 56 L Respiratory Rate 22 H 24 H 23 H Blood Pressure 142/83 H Pulse Oximetry 96 Oxygen Delivery Fraction of Inspired Oxygen 07/30/24 18:00 07/30/24 18:00 07/30/24 18:00 Temperature Pulse Rate 61 61 61 Respiratory Rate 23 H 23 H Blood Pressure Pulse Oximetry Oxygen Delivery Fraction of Inspired Oxygen 07/30/24 18:00 07/30/24 19:43 07/30/24 20:00 Temperature 37.4 C Pulse Rate 61 65 Respiratory Rate 23 H 16 Blood Pressure 153/82 H Pulse Oximetry 97 Oxygen Delivery Mechanical Ventilation Fraction of Inspired Oxygen 60 07/30/24 20:00 07/30/24 20:00 07/30/24 20:00 Temperature Pulse Rate 82 82 Respiratory Rate 16 16 Blood Pressure Pulse Oximetry Oxygen Delivery Fraction of Inspired Oxygen 60 07/30/24 20:00 07/30/24 20:00 07/30/24 20:34 Temperature Pulse Rate 82 62 61 Respiratory Rate 16 23 H Blood Pressure Pulse Oximetry Oxygen Delivery Fraction of Inspired Oxygen 07/30/24 20:55 07/30/24 20:55 07/30/24 20:56 Temperature Pulse Rate 61 61 61 Respiratory Rate 23 H 22 H 23 H Blood Pressure Pulse Oximetry Oxygen Delivery Fraction of Inspired Oxygen 07/30/24 20:56 07/30/24 20:56 07/30/24 21:15 Temperature Pulse Rate 63 63 63 Respiratory Rate 23 H 23 H Blood Pressure Pulse Oximetry 97 Oxygen Delivery Mechanical Ventilation Fraction of Inspired Oxygen 60 07/30/24 22:00 07/30/24 22:00 07/30/24 22:00 Temperature Pulse Rate 66 66 66 Respiratory Rate 20 20 Blood Pressure Pulse Oximetry Oxygen Delivery Fraction of Inspired Oxygen 07/30/24 22:00 07/30/24 22:00 07/30/24 23:10 Temperature 37.3 C Pulse Rate 66 66 60 Respiratory Rate 20 20 Blood Pressure 153/80 H Pulse Oximetry 97 97 Oxygen Delivery Mechanical Ventilation Fraction of Inspired Oxygen 60 07/31/24 00:00 07/31/24 00:00 07/31/24 00:00 Temperature 37.2 C Pulse Rate 60 59 L Respiratory Rate 19 Blood Pressure 158/80 H Pulse Oximetry 97 Oxygen Delivery Mechanical Ventilation Fraction of Inspired Oxygen 60 07/31/24 00:00 07/31/24 00:09 07/31/24 00:16 Temperature Pulse Rate 60 60 Respiratory Rate 19 19 Blood Pressure Pulse Oximetry Oxygen Delivery Fraction of Inspired Oxygen 60 07/31/24 00:18 07/31/24 00:19 07/31/24 00:56 Temperature Pulse Rate 61 61 66 Respiratory Rate 19 19 20 Blood Pressure Pulse Oximetry Oxygen Delivery Fraction of Inspired Oxygen 07/31/24 01:00 07/31/24 01:06 07/31/24 01:06 Temperature Pulse Rate 69 66 68 Respiratory Rate 22 H 20 22 H Blood Pressure Pulse Oximetry Oxygen Delivery Fraction of Inspired Oxygen 07/31/24 02:00 07/31/24 02:00 07/31/24 02:00 Temperature Pulse Rate 62 62 62 Respiratory Rate 20 20 20 Blood Pressure Pulse Oximetry Oxygen Delivery Fraction of Inspired Oxygen 07/31/24 02:00 07/31/24 02:00 07/31/24 02:13 Temperature 37.3 C Pulse Rate 62 62 62 Respiratory Rate 19 20 Blood Pressure 131/80 Pulse Oximetry 97 Oxygen Delivery Fraction of Inspired Oxygen 07/31/24 02:18 07/31/24 02:33 07/31/24 03:29 Temperature Pulse Rate 62 62 66 Respiratory Rate 20 18 Blood Pressure Pulse Oximetry 98 Oxygen Delivery Mechanical Ventilation Fraction of Inspired Oxygen 60 07/31/24 03:52 07/31/24 04:00 07/31/24 04:00 Temperature 37.2 C Pulse Rate 66 67 67 Respiratory Rate 18 20 20 Blood Pressure 124/69 Pulse Oximetry 98 Oxygen Delivery Fraction of Inspired Oxygen 07/31/24 04:00 07/31/24 04:00 07/31/24 04:00 Temperature Pulse Rate 67 Respiratory Rate 20 Blood Pressure Pulse Oximetry Oxygen Delivery Mechanical Ventilation Fraction of Inspired Oxygen 60 60 07/31/24 04:00 07/31/24 04:19 07/31/24 05:07 Temperature Pulse Rate 68 67 68 Respiratory Rate 21 H Blood Pressure Pulse Oximetry 98 Oxygen Delivery Mechanical Ventilation Fraction of Inspired Oxygen 60 07/31/24 05:12 07/31/24 06:00 07/31/24 06:00 Temperature 37.4 C Pulse Rate 68 63 65 Respiratory Rate 21 H Blood Pressure 114/68 Pulse Oximetry 97 Oxygen Delivery Fraction of Inspired Oxygen 07/31/24 06:00 07/31/24 06:00 07/31/24 06:37 Temperature Pulse Rate 65 64 65 Respiratory Rate 18 18 18 Blood Pressure Pulse Oximetry Oxygen Delivery Fraction of Inspired Oxygen 07/31/24 07:05 07/31/24 07:13 07/31/24 08:11 Temperature Pulse Rate 67 67 63 Respiratory Rate 21 H 21 H Blood Pressure Pulse Oximetry 96 Oxygen Delivery Mechanical Ventilation Fraction of Inspired Oxygen 60 07/31/24 08:11 Temperature Pulse Rate 63 Respiratory Rate 20 Blood Pressure Pulse Oximetry Oxygen Delivery Fraction of Inspired Oxygen Intake/Output Intake/Output: Intake & Output 07/28/24 07/29/24 07/30/24 07/31/24 23:59 23:59 23:59 23:59 Intake Total 2490.6 3628.6 3054.8 633.0 Output Total 2750 4980 1550 850 Balance -259.4 -1351.4 1504.8 -217.0 Meds/Results Medications: Active Medications Generic Name Dose Route Start Last Admin Trade Name Freq PRN Reason Stop Dose Admin Acetaminophen 650 mg 07/25/24 19:51 Acetaminophen Elixir 325 Mg/10.15 Ml Udc PO Q6H PRN Mild Pain (1-3) or Fever Albuterol/Ipratropium 3 ml 07/26/24 14:00 07/31/24 08:10 Ipratropium 0.5 Mg/Albuterol Sulfate 2.5 Mg Ampul.Neb 3 Ml INHALATION 3 ml Q6HRT JOSEMANUEL Administration Atorvastatin Calcium 40 mg 07/27/24 09:00 07/30/24 09:20 Atorvastatin 40 Mg Tablet PO 40 mg DAILY JOSEMANUEL Administration Dextrose 12.5 gm 07/27/24 12:28 Dextrose 50% 25 Gm/50 Ml Syringe IV PUSH PRN PRN Hypoglycemia Protocol Enoxaparin Sodium 40 mg 07/26/24 09:00 07/30/24 09:30 Enoxaparin 40 Mg/0.4 Ml Syringe SUB-Q 40 mg DAILY JOSEMANUEL Administration Glucagon 1 mg 07/27/24 12:28 Glucagon For Inj 1 Mg Vial IM PRN PRN Hypoglycemia Protocol Glucose 15 gm 07/27/24 12:28 Glucose Oral Gel 15 Gm Of Glucse In 37.5 Gm Tube PO PRN PRN Hypoglycemia Protocol Hydralazine HCl 10 mg 07/25/24 19:41 07/29/24 00:51 Hydralazine Hcl 20 Mg/Ml Vial IV PUSH 10 mg Q8H PRN Administration BP greater than 180/90 Propofol 100 mls @ 24.9 mls/hr 07/25/24 23:05 07/31/24 06:37 Diprivan IV CONT 50 mcg/kg/min .Q4H1M JOSEMANUEL 24.9 mls/hr Titration Protocol 50 MCG/KG/MIN Norepinephrine Bitartrate 8 mg in 250 mls @ 9.375 mls/hr 07/26/24 14:40 07/27/24 21:17 Levophed 8 Mg/D5w 250 Ml IV CONT Not Given .Q24H JOSEMANUEL Protocol 5 MCG/MIN Dextrose 1,000 mls @ 100 mls/hr 07/27/24 12:28 Dextrose 5% 1,000 Ml IVPB PRN PRN Hypoglycemia Protocol Dexmedetomidine HCl 400 mcg in 100 mls @ 31.2 mls/hr 07/28/24 02:05 07/31/24 07:13 Precedex 400 Mcg/100 Ml IV CONT 1.5 mcg/kg/hr .Q3H13M JOSEMANUEL 31.2 mls/hr Administration Protocol 1.5 MCG/KG/HR Cisatracurium Besylate 200 mg/ 100 mls @ 0 mls/hr 07/28/24 23:05 07/29/24 08:15 Sodium Chloride IV CONT 0 mcg/kg/min .Q0M JOSEMANUEL 0 mls/hr Titration Protocol Fentanyl Citrate 2,500 mcg in 250 mls @ 20 mls/hr 07/29/24 08:20 07/31/24 06:00 Fentanyl 2,500 Mcg/Ns 250 Ml IV CONT 200 mcg/hr .[id number] JOSEMANUEL 20 mls/hr Titration Protocol 200 MCG/HR Cefepime HCl 2 gm in 50 mls @ 100 mls/hr 07/30/24 15:00 07/31/24 02:54 Maxipime 2 Gm/Ns 50 Ml IVPB 100 mls/hr Q12H JOSEMANUEL Administration Vancomycin HCl 1,500 mg in 500 mls @ 250 mls/hr 07/31/24 08:00 Vancomycin 1,500 Mg/Ns 500 Ml IVPB Q12H [facility] Insulin Aspart 3 - 6 units 07/27/24 13:00 07/31/24 04:33 Insulin Aspart (*Bkc) 100 Units/Ml SUB-Q Not Given Q4HR [facility] Protocol Insulin Glargine 10 units 07/29/24 09:00 07/30/24 09:20 Insulin Glargine (*Bkc) 100 Units/Ml SUB-Q 10 units QAM JOSEMANUEL Administration Loratadine 10 mg 07/26/24 09:51 07/30/24 09:20 Loratadine 10 Mg Tablet FEED TUBE 10 mg QAM JOSEMANUEL Administration Methylprednisolone Sodium Succinate 30 mg 07/31/24 09:00 Methylprednisolone Sod Succ 40 Mg Vial IV PUSH QAM JOSEMANUEL Midazolam HCl 4 mg 07/28/24 23:03 07/31/24 01:09 Midazolam Hcl (*Crx) 2 Mg/2 Ml Vial IV PUSH 4 mg Q1H PRN Administration Agitation Montelukast Sodium 10 mg 07/26/24 21:00 07/30/24 19:59 Montelukast Sodium 10 Mg Tablet PO 10 mg QHS JOSEMANUEL Administration Multi-Ingred Cream/Lotion/Oil/Oint 1 applic 07/29/24 09:00 07/30/24 20:00 Mineral Oil/White Petrolatum Ointment EACH EYE 1 applic Q12HR JOSEMANUEL Administration Pantoprazole Sodium 40 mg 07/26/24 09:55 07/30/24 09:20 Pantoprazole Sodium Iv 40 Mg Vial IV PUSH 40 mg QAM JOSEMANUEL Administration Sodium Chloride 20 ml 07/26/24 10:36 Central Line Flush IV PUSH PRN PRN after blood draws Sodium Chloride 10 ml 07/26/24 10:36 Central Line Flush IV PUSH PRN PRN with TPN bag changes Sodium Chloride 10 ml 07/26/24 14:00 07/31/24 06:34 Central Line Flush IV PUSH 10 ml Q8HR JOSEMANUEL Administration Radiology Results: ITS Impressions Abdomen X-Ray 07/25/24 16:47 IMPRESSION: 1. Endotracheal tube tip 1 cm above the jose. 2. No acute cardiopulmonary disease. 3. Nasogastric tube extends into the stomach with distal tip projecting near the level of the gastroesophageal junction. Unclear with only AP projections tube extends back into the gastroesophageal junction were positioned more anteriorly in the body but superimposed over the gastroesophageal junction. Consider obtaining an oblique or crosstable lateral view for more definitive determination. Renal Ultrasound 07/27/24 14:10 IMPRESSION: 1. Normal kidneys without hydronephrosis. Chest X-Ray 07/30/24 06:01 Impression: Minimal left pleural effusion with probable left basilar atelectasis. Correlate clinically for pneumonia. Support tubes, as above. Chest CT 07/30/24 13:27 IMPRESSION: 1. Mild airspace opacities in right upper lobe, consistent with atelectasis versus pneumonia. 2. Airspace opacities in the lower lungs with volume loss, left worse than right, likely atelectasis. Labs Labs: Laboratory Results - last 24 hr 07/30/24 07/30/24 07/30/24 04:24 11:29 12:42 WBC RBC Hgb Hct MCV MCH MCHC RDW Plt Count MPV Immature Gran % (Auto) Neut % (Auto) Lymph % (Auto) [place] % (Auto) Eos % (Auto) Baso % (Auto) Lymph # (Auto) [place] # (Auto) Eos # (Auto) Baso # (Auto) Abs Immat Gran (auto) Absolute Neuts (auto) Absolute Nucleated RBC Nucleated RBC % Puncture Site ABG pH ABG pCO2 ABG pO2 ABG PO2/FiO2 Ratio ABG HCO3 ABG O2 Saturation ABG O2 Content ABG Base Excess A-a Gradient Oxyhemoglobin Carboxyhemoglobin Methemoglobin Reduced Hemoglobin Total Hemoglobin O2 Delivery Device O2 Liters/Min Minute Volume Vent Rate Vent Mode FiO2 Tidal Volume PEEP Peak Inspir Pressure Pressure Support Sodium Potassium Chloride Carbon Dioxide Anion Gap BUN Creatinine Estim Creat Clear Calc Estimated GFR Glucose POC Capillary Glucose 214 H 180 H Calcium Phosphorus Magnesium Total Bilirubin AST ALT Alkaline Phosphatase Total Protein Albumin Triglycerides Procalcitonin 0.2 Nasal MRSA (PCR) 07/30/24 07/30/24 07/30/24 16:17 16:34 19:45 WBC RBC Hgb Hct MCV MCH MCHC RDW Plt Count MPV Immature Gran % (Auto) Neut % (Auto) Lymph % (Auto) [place] % (Auto) Eos % (Auto) Baso % (Auto) Lymph # (Auto) [place] # (Auto) Eos # (Auto) Baso # (Auto) Abs Immat Gran (auto) Absolute Neuts (auto) Absolute Nucleated RBC Nucleated RBC % Puncture Site ABG pH ABG pCO2 ABG pO2 ABG PO2/FiO2 Ratio ABG HCO3 ABG O2 Saturation ABG O2 Content ABG Base Excess A-a Gradient Oxyhemoglobin Carboxyhemoglobin Methemoglobin Reduced Hemoglobin Total Hemoglobin O2 Delivery Device O2 Liters/Min Minute Volume Vent Rate Vent Mode FiO2 Tidal Volume PEEP Peak Inspir Pressure Pressure Support Sodium Potassium Chloride Carbon Dioxide Anion Gap BUN Creatinine Estim Creat Clear Calc Estimated GFR Glucose POC Capillary Glucose 168 H 162 H Calcium Phosphorus Magnesium Total Bilirubin AST ALT Alkaline Phosphatase Total Protein Albumin Triglycerides Procalcitonin Nasal MRSA (PCR) Not detected 07/30/24 07/31/24 07/31/24 23:28 03:35 04:00 WBC 18.9 H RBC 4.42 L Hgb 14.3 Hct 41.3 L MCV 93.4 MCH 32.4 MCHC 34.6 RDW 13.1 Plt Count 203 MPV 9.4 Immature Gran % (Auto) 1.4 H Neut % (Auto) 72.6 Lymph % (Auto) 12.9 L [place] % (Auto) 8.8 H Eos % (Auto) 4.1 Baso % (Auto) 0.2 Lymph # (Auto) 2.44 [place] # (Auto) 1.7 H Eos # (Auto) 0.8 H Baso # (Auto) 0.0 Abs Immat Gran (auto) 0.27 H Absolute Neuts (auto) 13.7 H Absolute Nucleated RBC 0.000 Nucleated RBC % 0.0 Puncture Site ABG pH ABG pCO2 ABG pO2 ABG PO2/FiO2 Ratio ABG HCO3 ABG O2 Saturation ABG O2 Content ABG Base Excess A-a Gradient Oxyhemoglobin Carboxyhemoglobin Methemoglobin Reduced Hemoglobin Total Hemoglobin O2 Delivery Device O2 Liters/Min Minute Volume Vent Rate Vent Mode FiO2 Tidal Volume PEEP Peak Inspir Pressure Pressure Support Sodium 137 Potassium 4.1 Chloride 103 Carbon Dioxide 28 Anion Gap 6 BUN 38 H Creatinine 0.75 Estim Creat Clear Calc 87 Estimated GFR > 60 Glucose 140 H POC Capillary Glucose 141 H 156 H Calcium 8.1 L Phosphorus 3.5 Magnesium 2.4 H Total Bilirubin 0.5 AST 25 ALT 43 Alkaline Phosphatase 92 Total Protein 6.0 L Albumin 3.0 L Triglycerides 140 Procalcitonin Nasal MRSA (PCR) 07/31/24 04:09 WBC RBC Hgb Hct MCV MCH MCHC RDW Plt Count MPV Immature Gran % (Auto) Neut % (Auto) Lymph % (Auto) [place] % (Auto) Eos % (Auto) Baso % (Auto) Lymph # (Auto) [place] # (Auto) Eos # (Auto) Baso # (Auto) Abs Immat Gran (auto) Absolute Neuts (auto) Absolute Nucleated RBC Nucleated RBC % Puncture Site Right radial ABG pH 7.455 H ABG pCO2 38.2 ABG pO2 91.5 ABG PO2/FiO2 Ratio 1.52 ABG HCO3 26.3 H ABG O2 Saturation 97.4 ABG O2 Content 20.9 ABG Base Excess 2.4 A-a Gradient 294.3 Oxyhemoglobin 96.9 Carboxyhemoglobin 0.5 Methemoglobin 0.0 Reduced Hemoglobin 2.6 Total Hemoglobin 15.3 O2 Delivery Device Ventilator O2 Liters/Min Not Reportable Minute Volume Not Reportable Vent Rate 18 Vent Mode Cmv FiO2 60 Tidal Volume 450 PEEP 8 Peak Inspir Pressure Not Reportable Pressure Support Not Reportable Sodium Potassium Chloride Carbon Dioxide Anion Gap BUN Creatinine Estim Creat Clear Calc Estimated GFR Glucose POC Capillary Glucose Calcium Phosphorus Magnesium Total Bilirubin AST ALT Alkaline Phosphatase Total Protein Albumin Triglycerides Procalcitonin Nasal MRSA (PCR)
[2024-07-31] MEDS: MINERAL OIL/WHITE PETROLATUM OINTMENT 1 APPLIC EACH EYE (08:58)
[2024-07-31] MEDS: PANTOPRAZOLE SODIUM IV 40 MG VIAL IV PUSH (08:58)
[2024-07-31] MEDS: methylPREDNISolone SOD SUCC 40 MG VIAL 30 MG IV PUSH (08:58)
[2024-07-31] MEDS: ENOXAPARIN 40 MG/0.4 ML SYRINGE SUB-Q (08:59)
[2024-07-31] MEDS: VANCOMYCIN 1,500 MG/NS 500 ML 1,500 MG/500 ML BAG 250 MG IVPB ×2 (08:59→20:36)
[2024-07-31] MEDS: LORATADINE 10 MG TABLET FEED TUBE (08:59)
[2024-07-31] MEDS: ATORVASTATIN 40 MG TABLET PO (08:59)
[2024-07-31 09:06] LABS: Glucose Point of Care 137 mg/dl (65-105)
[2024-07-31] MEDS: INSULIN GLARGINE (*BKC) 100 UNITS/ML 10 UNITS SUB-Q (09:06)
[2024-07-31] MEDS: LABETALOL HCL INJ 100 MG/20 ML VIAL 20 MG IV PUSH ×4 (10:06→20:37)
[2024-07-31] MEDS: MIDAZOLAM HCL (*CRX) 2 MG/2 ML VIAL IV PUSH (10:06)
[2024-07-31] MEDS: FUROSEMIDE INJ 40 MG/4 ML VIAL IV PUSH (10:13)
--- NOTE | 2024-07-31 10:37 | P.PNINT_ITS ---
Progress Note: A&P Assessment and Plan (1) Acute respiratory failure with hypoxia and hypercapnia: Code(s): J96.01 - Acute respiratory failure with hypoxia; J96.02 - Acute respiratory failure with hypercapnia Status: Acute Assessment and Plan: Acute hypoxic and hypercarbic respiratory failure which appears to be secondary to status asthmaticus. Patient has history of allergic asthma and his presentation is consistent. Patient may also have mild underlying COPD considering his long history of smoking but has not been officially diagnosed. CT scan did not show any infiltrates and procalcitonin level was low suggesting against any pneumonia Currently intubated and on mechanical ventilation. Patient was heavily sedated. Patient was still asynchronous with ventilator and was given rocuronium and started on Nimbex infusion 07/27 patient's Nimbex infusion was discontinued and sedation was lowered. As the sedation wore off patient became more tachypneic with asynchrony with the ventilator. At that time patient had high peak pressures and bilateral wheezing. Patient was started back on sedation and had to BT paralyzed. 07/28 pause Nimbex infusion. Will try to wean off sedation and evaluate for weaning trial today. Hold further fluids 07/29 patient has been exhibiting dynamic airway obstruction. When sedated and paralyzed clearly his airway pressures are low, no wheezing. When paralytics are discontinued in sedation is lowered patient becomes tachypneic, asynchronous with ventilator leading to high peak pressures and wheezing on exam.. I have him on Precedex infusion for anxiolysis. I will again discontinue Nimbex infusion and then lower propofol. Depending on how he responds will evaluate for weaning trial. 07/30 sedation holiday was performed despite being on Precedex and low-dose of propofol patient was tachypneic with respiratory rate in 40s high tidal volume and drop in saturation. Weaning trial attempt was aborted and patient was placed back on sedation Chest x-ray reviewed and shows possible left lower lobe infiltrate. With increased respiratory secretion and low-grade fever this morning I obtained blood cultures and sputum culture which are pending. Procalcitonin level was still low but CT scan of the chest showed mild airspace opacities in right upper lobe. Patient was started on vancomycin cefepime empirically for pneumonia 07/31 I reviewed chest x-ray ABG and ventilator settings. I discussed the case with experimental box tester. We will we suspect that patient failure to wean and doing poorly on trial could have been secondary to anxiety and agitation rather than respiratory considering there has been significant improvement wheezing and when patient is sedated his peak pressures were low and will lung exam does not exhibit any wheezing. We decided to extubate patient today without a trial. I spoke to patient's and sister who who was in ICU nurse and discussed both risks and benefits of extubating patient without a weaning trial as long as his oxygenation and vital stable. They verbalized understandings of both risks which involved him needing Airvo, nippv or even re-intubation if he fails. And agreed to proceed I turned patient's fentanyl off in later propofol. Room was set up for re- intubation if needed including up went from and drugs. Requested RT to bring Airvo at the bedside. Sedation was turned off and patient eventually started following commands by squeezing hand but when I explained to the patient that we will plan to take the tube out he stopped responding and start following commands. Patient was placed on CPAP and had adequate tidal volumes and respiratory rate. He did become little tachycardic but did had bronchodilator treatment prior to that. His saturation remained adequate. At that point decision was made to extubate patient. When RT was trying to extubate patient he was biting on the tube and did not wanted the tube removed which was quite atypical. Despite he explaining to the patient that he was doing much better and it was time to give him a chance to breathe on his own he kept on biting on the tube and would not let it go. With difficulty we were able to extubate the patient and patient was placed on Airvo his sats remained well and respiratory rate improved. He did become tachycardic and blood pressure was slightly elevated and was given labetalol. At that point when RT try to suction patient with yaunker he kept on biting on the yaunker and would not let it go. Patient was given labetalol and also 2 mg of Versed to treat his anxiety and then nursing staff was able to remove the on curve from his teeth. I requested family to come at bedside to help with his anxiety and agitation.. At this point when I spoke to patient's sister directly and asked if patient has any history of psychiatric disorder she told me the patient has history of depression and ADHD and is currently not on any treatment. I was at bedside directly managing patient and also discussing with experimental box tester and family during this time At this point patient is doing reasonable and is on Airvo at 45 L and 60% FiO2. His heart rate is in 100s. He does not have any significant wheezing on exam or stridor on neck auscultation. His blood pressure is slightly elevated. I will continue p.r.n. suctioning, Precedex for anxiolysis, p.r.n. Ativan for agitation, supplemental oxygen and monitor closely Continue Solu-Medrol at current rate Change bronchodilators to p.r.n. Contain Claritin and Singulair (2) Hypertension: Qualifiers: Hypertension type: primary hypertension Qualified Code(s): I10 - Essential (primary) hypertension Code(s): I10 - Essential (primary) hypertension Status: Chronic Assessment and Plan: P.r.n. labetalol (3) Allergic asthma: Qualifiers: Asthma severity: severe Asthma persistence: persistent Asthma complication type: with acute exacerbation Qualified Code(s): J45.51 - Severe persistent asthma with (acute) exacerbation Code(s): J45.909 - Unspecified asthma, uncomplicated Status: Acute Assessment and Plan: See above (4) COPD (chronic obstructive pulmonary disease): Qualifiers: COPD type: unspecified COPD Qualified Code(s): J44.9 - Chronic obstructive pulmonary disease, unspecified Code(s): J44.9 - Chronic obstructive pulmonary disease, unspecified Status: Acute Assessment and Plan: See above (5) Obstructive sleep apnea: Code(s): G47.33 - Obstructive sleep apnea (adult) (pediatric) Status: Acute Assessment and Plan: Patient is now extubated and experimental box tester was going to order home CPAP for night (6) Status asthmaticus: Code(s): J45.902 - Unspecified asthma with status asthmaticus Status: Acute Assessment and Plan: See above (7) GRACIELA (acute kidney injury): Code(s): N17.9 - Acute kidney failure, unspecified Status: Acute Assessment and Plan: patient developed GRACIELA. His creatinine yesterday was 2.18. Likely secondary to hypotension vs hypovolemia patient was given IV fluids and creatinine has improved and now normalized Normal renal ultrasound, CK was mildly elevate monitor urine output electrolytes and creatinine Patient has been on IV fluids. I will hold further IV fluids at this time Lasix IV today Plan DVT prophylaxis -Lovenox Stress ulcer prophylaxis -Protonix Nutrition - npo now after extubation Code Status - Full Code Case discussed with pulmonology Total Critical Care Time - 90 minutes Due to a high probability of clinically significant, life threatening deteriora tion, the patient required my highest level of preparedness to intervene emergently and I personally spent this critical care time directly and personally managing the patient. This critical care time included obtaining a history; examining the patient; pulse oximetry; ordering and review of studies; arranging urgent treatment with development of a management plan; evaluation of patient's response to treatment; frequent reassessment; and discussions with other providers. It was exclusive of separately billable procedures and treating other patients and teaching time. Please see Assessment and Plan section and the rest of the note for further information on patient assessment and treatment Subjective Date/time seen: 07/31/24 Overnight events reviewed. Afebrile Continues to be on mechanical ventilation 60% FiO2 and 8 of PEEP Tolerating tube feed Continues to be sedated with propofol Precedex and fentanyl Other Vitals acceptable Review of Systems Review of Systems: ROS unobtainable: Yes unobtainable due to endotracheal tube, unobtainable due to medical condition and unobtainable due to mental status Exam Narrative: General: Pt is sedated, intubated and on mechanical ventilation Lungs/Chest: Trachea central nol wheezing, Improved overall air movement, no wheezing when patient is sedated. Occasional bilateral wheezing on weaning trial Cardiac: RRR. Normal S1 S2. No murmurs Circulation: Pedal pulses are intact and symmetrical. Abdomen: Decreased bowel sounds. Obese. Soft. NT. ND. Extremities: No clubbing, cyanosis or edema. Warm : Garcia in place Neurologic: Unable to assess due to sedation. On holding sedation patient does follow commands intermittently with his both hands. PERRL Objective Data Vital Signs Vital Signs: Vital Signs - 24 hr 07/30/24 10:54 07/30/24 10:55 07/30/24 11:00 Temperature Pulse Rate 97 97 92 Respiratory Rate 23 H 23 H 20 Blood Pressure Pulse Oximetry Oxygen Delivery Fraction of Inspired Oxygen 07/30/24 11:13 07/30/24 12:00 07/30/24 12:00 Temperature Pulse Rate 76 92 92 Respiratory Rate 16 16 Blood Pressure Pulse Oximetry 93 Oxygen Delivery Mechanical Ventilation Fraction of Inspired Oxygen 60 07/30/24 12:00 07/30/24 12:00 07/30/24 12:00 Temperature Pulse Rate 92 93 Respiratory Rate 16 Blood Pressure Pulse Oximetry Oxygen Delivery Mechanical Ventilation Fraction of Inspired Oxygen 60 07/30/24 12:00 07/30/24 12:00 07/30/24 12:30 Temperature 38.3 C H Pulse Rate 92 91 Respiratory Rate 16 15 Blood Pressure 122/72 Pulse Oximetry 96 Oxygen Delivery Fraction of Inspired Oxygen 60 07/30/24 12:30 07/30/24 14:00 07/30/24 14:00 Temperature Pulse Rate 91 65 65 Respiratory Rate 15 14 14 Blood Pressure Pulse Oximetry Oxygen Delivery Fraction of Inspired Oxygen 07/30/24 14:00 07/30/24 14:00 07/30/24 14:00 Temperature 38.0 C H Pulse Rate 68 68 68 Respiratory Rate 20 20 Blood Pressure 129/69 Pulse Oximetry 95 Oxygen Delivery Fraction of Inspired Oxygen 07/30/24 14:08 07/30/24 14:08 07/30/24 14:56 Temperature Pulse Rate 65 65 64 Respiratory Rate 19 19 Blood Pressure Pulse Oximetry 95 Oxygen Delivery Mechanical Ventilation Fraction of Inspired Oxygen 60 07/30/24 14:56 07/30/24 15:14 07/30/24 16:00 Temperature 37.8 C H Pulse Rate 64 69 70 Respiratory Rate 23 H 23 H 21 H Blood Pressure 135/76 Pulse Oximetry 97 Oxygen Delivery Fraction of Inspired Oxygen 07/30/24 16:00 07/30/24 16:00 07/30/24 16:00 Temperature Pulse Rate 66 Respiratory Rate Blood Pressure Pulse Oximetry Oxygen Delivery Mechanical Ventilation Fraction of Inspired Oxygen 60 60 07/30/24 16:00 07/30/24 16:00 07/30/24 16:00 Temperature Pulse Rate 70 70 70 Respiratory Rate 21 H 21 H 21 H Blood Pressure Pulse Oximetry Oxygen Delivery Fraction of Inspired Oxygen 07/30/24 17:07 07/30/24 17:21 07/30/24 17:21 Temperature Pulse Rate 65 62 62 Respiratory Rate 20 20 Blood Pressure Pulse Oximetry 98 Oxygen Delivery Mechanical Ventilation Fraction of Inspired Oxygen 60 07/30/24 17:30 07/30/24 17:30 07/30/24 18:00 Temperature 37.4 C Pulse Rate 62 61 56 L Respiratory Rate 22 H 24 H 23 H Blood Pressure 142/83 H Pulse Oximetry 96 Oxygen Delivery Fraction of Inspired Oxygen 07/30/24 18:00 07/30/24 18:00 07/30/24 18:00 Temperature Pulse Rate 61 61 61 Respiratory Rate 23 H 23 H Blood Pressure Pulse Oximetry Oxygen Delivery Fraction of Inspired Oxygen 07/30/24 18:00 07/30/24 19:43 07/30/24 20:00 Temperature 37.4 C Pulse Rate 61 65 Respiratory Rate 23 H 16 Blood Pressure 153/82 H Pulse Oximetry 97 Oxygen Delivery Mechanical Ventilation Fraction of Inspired Oxygen 60 07/30/24 20:00 07/30/24 20:00 07/30/24 20:00 Temperature Pulse Rate 82 82 Respiratory Rate 16 16 Blood Pressure Pulse Oximetry Oxygen Delivery Fraction of Inspired Oxygen 60 07/30/24 20:00 07/30/24 20:00 07/30/24 20:34 Temperature Pulse Rate 82 62 61 Respiratory Rate 16 23 H Blood Pressure Pulse Oximetry Oxygen Delivery Fraction of Inspired Oxygen 07/30/24 20:55 07/30/24 20:55 07/30/24 20:56 Temperature Pulse Rate 61 61 61 Respiratory Rate 23 H 22 H 23 H Blood Pressure Pulse Oximetry Oxygen Delivery Fraction of Inspired Oxygen 07/30/24 20:56 07/30/24 20:56 07/30/24 21:15 Temperature Pulse Rate 63 63 63 Respiratory Rate 23 H 23 H Blood Pressure Pulse Oximetry 97 Oxygen Delivery Mechanical Ventilation Fraction of Inspired Oxygen 60 07/30/24 22:00 07/30/24 22:00 07/30/24 22:00 Temperature Pulse Rate 66 66 66 Respiratory Rate 20 20 Blood Pressure Pulse Oximetry Oxygen Delivery Fraction of Inspired Oxygen 07/30/24 22:00 07/30/24 22:00 07/30/24 23:10 Temperature 37.3 C Pulse Rate 66 66 60 Respiratory Rate 20 20 Blood Pressure 153/80 H Pulse Oximetry 97 97 Oxygen Delivery Mechanical Ventilation Fraction of Inspired Oxygen 60 07/31/24 00:00 07/31/24 00:00 07/31/24 00:00 Temperature 37.2 C Pulse Rate 60 59 L Respiratory Rate 19 Blood Pressure 158/80 H Pulse Oximetry 97 Oxygen Delivery Mechanical Ventilation Fraction of Inspired Oxygen 60 07/31/24 00:00 07/31/24 00:09 07/31/24 00:16 Temperature Pulse Rate 60 60 Respiratory Rate 19 19 Blood Pressure Pulse Oximetry Oxygen Delivery Fraction of Inspired Oxygen 60 07/31/24 00:18 07/31/24 00:19 07/31/24 00:56 Temperature Pulse Rate 61 61 66 Respiratory Rate 19 19 20 Blood Pressure Pulse Oximetry Oxygen Delivery Fraction of Inspired Oxygen 07/31/24 01:00 07/31/24 01:06 07/31/24 01:06 Temperature Pulse Rate 69 66 68 Respiratory Rate 22 H 20 22 H Blood Pressure Pulse Oximetry Oxygen Delivery Fraction of Inspired Oxygen 07/31/24 02:00 07/31/24 02:00 07/31/24 02:00 Temperature Pulse Rate 62 62 62 Respiratory Rate 20 20 20 Blood Pressure Pulse Oximetry Oxygen Delivery Fraction of Inspired Oxygen 07/31/24 02:00 07/31/24 02:00 07/31/24 02:13 Temperature 37.3 C Pulse Rate 62 62 62 Respiratory Rate 19 20 Blood Pressure 131/80 Pulse Oximetry 97 Oxygen Delivery Fraction of Inspired Oxygen 07/31/24 02:18 07/31/24 02:33 07/31/24 03:29 Temperature Pulse Rate 62 62 66 Respiratory Rate 20 18 Blood Pressure Pulse Oximetry 98 Oxygen Delivery Mechanical Ventilation Fraction of Inspired Oxygen 60 07/31/24 03:52 07/31/24 04:00 07/31/24 04:00 Temperature 37.2 C Pulse Rate 66 67 67 Respiratory Rate 18 20 20 Blood Pressure 124/69 Pulse Oximetry 98 Oxygen Delivery Fraction of Inspired Oxygen 07/31/24 04:00 07/31/24 04:00 07/31/24 04:00 Temperature Pulse Rate 67 Respiratory Rate 20 Blood Pressure Pulse Oximetry Oxygen Delivery Mechanical Ventilation Fraction of Inspired Oxygen 60 60 07/31/24 04:00 07/31/24 04:19 07/31/24 05:07 Temperature Pulse Rate 68 67 68 Respiratory Rate 21 H Blood Pressure Pulse Oximetry 98 Oxygen Delivery Mechanical Ventilation Fraction of Inspired Oxygen 60 07/31/24 05:12 07/31/24 06:00 07/31/24 06:00 Temperature 37.4 C Pulse Rate 68 63 65 Respiratory Rate 21 H Blood Pressure 114/68 Pulse Oximetry 97 Oxygen Delivery Fraction of Inspired Oxygen 07/31/24 06:00 07/31/24 06:00 07/31/24 06:37 Temperature Pulse Rate 65 64 65 Respiratory Rate 18 18 18 Blood Pressure Pulse Oximetry Oxygen Delivery Fraction of Inspired Oxygen 07/31/24 07:05 07/31/24 07:13 07/31/24 08:11 Temperature Pulse Rate 67 67 63 Respiratory Rate 21 H 21 H Blood Pressure Pulse Oximetry 96 Oxygen Delivery Mechanical Ventilation Fraction of Inspired Oxygen 60 07/31/24 08:11 07/31/24 08:57 07/31/24 08:57 Temperature Pulse Rate 63 68 68 Respiratory Rate 20 18 18 Blood Pressure Pulse Oximetry Oxygen Delivery Fraction of Inspired Oxygen 07/31/24 09:13 07/31/24 09:16 07/31/24 09:54 Temperature Pulse Rate 65 61 144 H Respiratory Rate 24 H 18 15 Blood Pressure Pulse Oximetry Oxygen Delivery Fraction of Inspired Oxygen 07/31/24 10:06 07/31/24 10:08 07/31/24 10:14 Temperature Pulse Rate 147 H 106 H 102 H Respiratory Rate 22 H 16 Blood Pressure Pulse Oximetry Oxygen Delivery Fraction of Inspired Oxygen 07/31/24 10:14 Temperature Pulse Rate 102 H Respiratory Rate 16 Blood Pressure Pulse Oximetry Oxygen Delivery Fraction of Inspired Oxygen Intake/Output Intake/Output: Intake & Output 07/28/24 07/29/24 07/30/24 07/31/24 23:59 23:59 23:59 23:59 Intake Total 2490.6 3628.6 3054.8 855.0 Output Total 2750 4980 1550 850 Balance -259.4 -1351.4 1504.8 5.0 Meds/Results Medications: Active Medications Generic Name Dose Route Start Last Admin Trade Name Freq PRN Reason Stop Dose Admin Acetaminophen 650 mg 07/25/24 19:51 Acetaminophen Elixir 325 Mg/10.15 Ml Udc PO Q6H PRN Mild Pain (1-3) or Fever Albuterol/Ipratropium 3 ml 07/31/24 10:36 Ipratropium 0.5 Mg/Albuterol Sulfate 2.5 Mg Ampul.Neb 3 Ml INHALATION Q6HRT PRN Wheezing Atorvastatin Calcium 40 mg 07/27/24 09:00 07/31/24 08:59 Atorvastatin 40 Mg Tablet PO 40 mg DAILY JOSEMANUEL Administration Budesonide 0.5 mg 07/31/24 20:00 Budesonide Respule Neb 0.5 Mg/2 Ml Amp INHALATION Q12HRT JOSEMANUEL Dextrose 12.5 gm 07/27/24 12:28 Dextrose 50% 25 Gm/50 Ml Syringe IV PUSH PRN PRN Hypoglycemia Protocol Enoxaparin Sodium 40 mg 07/26/24 09:00 07/31/24 08:59 Enoxaparin 40 Mg/0.4 Ml Syringe SUB-Q 40 mg DAILY JOSEMANUEL Administration Glucagon 1 mg 07/27/24 12:28 Glucagon For Inj 1 Mg Vial IM PRN PRN Hypoglycemia Protocol Glucose 15 gm 07/27/24 12:28 Glucose Oral Gel 15 Gm Of Glucse In 37.5 Gm Tube PO PRN PRN Hypoglycemia Protocol Hydralazine HCl 10 mg 07/25/24 19:41 07/29/24 00:51 Hydralazine Hcl 20 Mg/Ml Vial IV PUSH 10 mg Q8H PRN Administration BP greater than 180/90 Propofol 100 mls @ 0 mls/hr 07/25/24 23:05 07/31/24 09:16 Diprivan IV CONT 0 mcg/kg/min .Q0M JOSEMANUEL 0 mls/hr Titration Protocol Dextrose 1,000 mls @ 100 mls/hr 07/27/24 12:28 Dextrose 5% 1,000 Ml IVPB PRN PRN Hypoglycemia Protocol Dexmedetomidine HCl 400 mcg in 100 mls @ 31.2 mls/hr 07/28/24 02:05 07/31/24 10:14 Precedex 400 Mcg/100 Ml IV CONT 1.5 mcg/kg/hr .Q3H13M JOSEMANUEL 31.2 mls/hr Administration Protocol 1.5 MCG/KG/HR Fentanyl Citrate 2,500 mcg in 250 mls @ 0 mls/hr 07/29/24 08:20 07/31/24 09:13 Fentanyl 2,500 Mcg/Ns 250 Ml IV CONT 0 mcg/hr .Q0M JOSEMANUEL 0 mls/hr Titration Protocol Cefepime HCl 2 gm in 50 mls @ 100 mls/hr 07/30/24 15:00 07/31/24 02:54 Maxipime 2 Gm/Ns 50 Ml IVPB 100 mls/hr Q12H JOSEMANUEL Administration Vancomycin HCl 1,500 mg in 500 mls @ 250 mls/hr 07/31/24 08:00 07/31/24 08:59 Vancomycin 1,500 Mg/Ns 500 Ml IVPB 250 mls/hr Q12H JOSEMANUEL Administration Insulin Aspart 3 - 6 units 07/27/24 13:00 07/31/24 09:04 Insulin Aspart (*Bkc) 100 Units/Ml SUB-Q Not Given Q4HR [facility] Protocol Labetalol HCl 20 mg 07/31/24 10:33 Labetalol Hcl Inj 100 Mg/20 Ml Vial IV PUSH Q4H PRN SBP > 160 and HR> 60 -1st choice Loratadine 10 mg 07/26/24 09:51 07/31/24 08:59 Loratadine 10 Mg Tablet FEED TUBE 10 mg QAM JOSEMANUEL Administration Lorazepam 1 mg 07/31/24 10:33 Lorazepam Inj (*Crx) 2 Mg/Ml Vial IV PUSH Q4H PRN Anxiety Methylprednisolone Sodium Succinate 20 mg 07/31/24 09:00 07/31/24 09:09 Methylprednisolone Sod Succ 40 Mg Vial IV PUSH Not Given QAM JOSEMANUEL Midazolam HCl 4 mg 07/28/24 23:03 07/31/24 01:09 Midazolam Hcl (*Crx) 2 Mg/2 Ml Vial IV PUSH 4 mg Q1H PRN Administration Agitation Montelukast Sodium 10 mg 07/26/24 21:00 07/30/24 19:59 Montelukast Sodium 10 Mg Tablet PO 10 mg QHS JOSEMANUEL Administration Multi-Ingred Cream/Lotion/Oil/Oint 1 applic 07/29/24 09:00 07/31/24 08:58 Mineral Oil/White Petrolatum Ointment EACH EYE 1 applic Q12HR JOSEMANUEL Administration Pantoprazole Sodium 40 mg 07/26/24 09:55 07/31/24 08:58 Pantoprazole Sodium Iv 40 Mg Vial IV PUSH 40 mg QAM JOSEMANUEL Administration Sodium Chloride 20 ml 07/26/24 10:36 Central Line Flush IV PUSH PRN PRN after blood draws Sodium Chloride 10 ml 07/26/24 10:36 Central Line Flush IV PUSH PRN PRN with TPN bag changes Sodium Chloride 10 ml 07/26/24 14:00 07/31/24 06:34 Central Line Flush IV PUSH 10 ml Q8HR JOSEMANUEL Administration Radiology Results: ITS Impressions Abdomen X-Ray 07/25/24 16:47 IMPRESSION: 1. Endotracheal tube tip 1 cm above the jose. 2. No acute cardiopulmonary disease. 3. Nasogastric tube extends into the stomach with distal tip projecting near the level of the gastroesophageal junction. Unclear with only AP projections tube extends back into the gastroesophageal junction were positioned more anteriorly in the body but superimposed over the gastroesophageal junction. Consider obtaining an oblique or crosstable lateral view for more definitive determination. Renal Ultrasound 07/27/24 14:10 IMPRESSION: 1. Normal kidneys without hydronephrosis. Chest X-Ray 07/30/24 06:01 Impression: Minimal left pleural effusion with probable left basilar atelectasis. Correlate clinically for pneumonia. Support tubes, as above. Chest CT 07/30/24 13:27 IMPRESSION: 1. Mild airspace opacities in right upper lobe, consistent with atelectasis versus pneumonia. 2. Airspace opacities in the lower lungs with volume loss, left worse than righ t, likely atelectasis. Labs Labs: Laboratory Results - last 24 hr 07/30/24 07/30/24 07/30/24 04:24 11:29 12:42 WBC RBC Hgb Hct MCV MCH MCHC RDW Plt Count MPV Immature Gran % (Auto) Neut % (Auto) Lymph % (Auto) [place] % (Auto) Eos % (Auto) Baso % (Auto) Lymph # (Auto) [place] # (Auto) Eos # (Auto) Baso # (Auto) Abs Immat Gran (auto) Absolute Neuts (auto) Absolute Nucleated RBC Nucleated RBC % Puncture Site ABG pH ABG pCO2 ABG pO2 ABG PO2/FiO2 Ratio ABG HCO3 ABG O2 Saturation ABG O2 Content ABG Base Excess A-a Gradient Oxyhemoglobin Carboxyhemoglobin Methemoglobin Reduced Hemoglobin Total Hemoglobin O2 Delivery Device O2 Liters/Min Minute Volume Vent Rate Vent Mode FiO2 Tidal Volume PEEP Peak Inspir Pressure Pressure Support Sodium Potassium Chloride Carbon Dioxide Anion Gap BUN Creatinine Estim Creat Clear Calc Estimated GFR Glucose POC Capillary Glucose 214 H 180 H Calcium Phosphorus Magnesium Total Bilirubin AST ALT Alkaline Phosphatase Total Protein Albumin Triglycerides Procalcitonin 0.2 Nasal MRSA (PCR) 07/30/24 07/30/24 07/30/24 16:17 16:34 19:45 WBC RBC Hgb Hct MCV MCH MCHC RDW Plt Count MPV Immature Gran % (Auto) Neut % (Auto) Lymph % (Auto) [place] % (Auto) Eos % (Auto) Baso % (Auto) Lymph # (Auto) [place] # (Auto) Eos # (Auto) Baso # (Auto) Abs Immat Gran (auto) Absolute Neuts (auto) Absolute Nucleated RBC Nucleated RBC % Puncture Site ABG pH ABG pCO2 ABG pO2 ABG PO2/FiO2 Ratio ABG HCO3 ABG O2 Saturation ABG O2 Content ABG Base Excess A-a Gradient Oxyhemoglobin Carboxyhemoglobin Methemoglobin Reduced Hemoglobin Total Hemoglobin O2 Delivery Device O2 Liters/Min Minute Volume Vent Rate Vent Mode FiO2 Tidal Volume PEEP Peak Inspir Pressure Pressure Support Sodium Potassium Chloride Carbon Dioxide Anion Gap BUN Creatinine Estim Creat Clear Calc Estimated GFR Glucose POC Capillary Glucose 168 H 162 H Calcium Phosphorus Magnesium Total Bilirubin AST ALT Alkaline Phosphatase Total Protein Albumin Triglycerides Procalcitonin Nasal MRSA (PCR) Not detected 07/30/24 07/31/24 07/31/24 23:28 03:35 04:00 WBC 18.9 H RBC 4.42 L Hgb 14.3 Hct 41.3 L MCV 93.4 MCH 32.4 MCHC 34.6 RDW 13.1 Plt Count 203 MPV 9.4 Immature Gran % (Auto) 1.4 H Neut % (Auto) 72.6 Lymph % (Auto) 12.9 L [place] % (Auto) 8.8 H Eos % (Auto) 4.1 Baso % (Auto) 0.2 Lymph # (Auto) 2.44 [place] # (Auto) 1.7 H Eos # (Auto) 0.8 H Baso # (Auto) 0.0 Abs Immat Gran (auto) 0.27 H Absolute Neuts (auto) 13.7 H Absolute Nucleated RBC 0.000 Nucleated RBC % 0.0 Puncture Site ABG pH ABG pCO2 ABG pO2 ABG PO2/FiO2 Ratio ABG HCO3 ABG O2 Saturation ABG O2 Content ABG Base Excess A-a Gradient Oxyhemoglobin Carboxyhemoglobin Methemoglobin Reduced Hemoglobin Total Hemoglobin O2 Delivery Device O2 Liters/Min Minute Volume Vent Rate Vent Mode FiO2 Tidal Volume PEEP Peak Inspir Pressure Pressure Support Sodium 137 Potassium 4.1 Chloride 103 Carbon Dioxide 28 Anion Gap 6 BUN 38 H Creatinine 0.75 Estim Creat Clear Calc 87 Estimated GFR > 60 Glucose 140 H POC Capillary Glucose 141 H 156 H Calcium 8.1 L Phosphorus 3.5 Magnesium 2.4 H Total Bilirubin 0.5 AST 25 ALT 43 Alkaline Phosphatase 92 Total Protein 6.0 L Albumin 3.0 L Triglycerides 140 Procalcitonin Nasal MRSA (PCR) 07/31/24 07/31/24 04:09 09:02 WBC RBC Hgb Hct MCV MCH MCHC RDW Plt Count MPV Immature Gran % (Auto) Neut % (Auto) Lymph % (Auto) [place] % (Auto) Eos % (Auto) Baso % (Auto) Lymph # (Auto) [place] # (Auto) Eos # (Auto) Baso # (Auto) Abs Immat Gran (auto) Absolute Neuts (auto) Absolute Nucleated RBC Nucleated RBC % Puncture Site Right radial ABG pH 7.455 H ABG pCO2 38.2 ABG pO2 91.5 ABG PO2/FiO2 Ratio 1.52 ABG HCO3 26.3 H ABG O2 Saturation 97.4 ABG O2 Content 20.9 ABG Base Excess 2.4 A-a Gradient 294.3 Oxyhemoglobin 96.9 Carboxyhemoglobin 0.5 Methemoglobin 0.0 Reduced Hemoglobin 2.6 Total Hemoglobin 15.3 O2 Delivery Device Ventilator O2 Liters/Min Not Reportable Minute Volume Not Reportable Vent Rate 18 Vent Mode Cmv FiO2 60 Tidal Volume 450 PEEP 8 Peak Inspir Pressure Not Reportable Pressure Support Not Reportable Sodium Potassium Chloride Carbon Dioxide Anion Gap BUN Creatinine Estim Creat Clear Calc Estimated GFR Glucose POC Capillary Glucose 137 H Calcium Phosphorus Magnesium Total Bilirubin AST ALT Alkaline Phosphatase Total Protein Albumin Triglycerides Procalcitonin Nasal MRSA (PCR) Quality VTE Prophylaxis VTE prophylaxis: pharmacologic ordered
[2024-07-31 12:02] LABS: Glucose Point of Care 161 mg/dl (65-105)
--- NOTE | 2024-07-31 12:33 | PCNFU ---
Nutrition Follow-Up Complete: Suboptimal Energy Intake as related to mechanical ventilation as evidenced by NPO/TF. Goal: Meet estimated nutritional needs. Patient will continue current goal. Pt current nutrition is NPO. Last recorded weight is 85.6 kg, up from 83 kg on admit. Bowel Motility: +BM reported 07/27 Labs Reviewed: Mg 2.4, BUN 38, Glu 140, Alb 3.0 Meds Noted: Lovenox, Singular Skin: WNL Additional Notes: Patient extubated today. Tube feedings off at this time. Spoke with nursing, plans for NPO for today. Will monitor weight, labs, skin, diet orders, meds every 3 days.
[2024-07-31] MEDS: dexmedeTOMIDine 400 MCG/100 ML 400 MCG/100 ML BAG 20.8 MCG IV CONT ×2 (14:03→18:32)
[2024-07-31] MEDS: hydrALAZINE HCL 20 MG/ML VIAL 10 MG IV PUSH (14:04)
[2024-07-31] MEDS: LORazepam INJ (*CRX) 2 MG/ML VIAL 1 MG IV PUSH ×2 (15:36→23:33)
--- NOTE | 2024-07-31 15:53 | PC.NURSE ---
Patient began yelling out for help after realizing his spouse and sister had left the room. This RN immediately entered Mr. Comer's room and asked what he was needed help with. He stated he needed to get out of bed and get out of here. Jeferson answered this RNs questions confirming he was oriented to self and place but lacked awareness of situation and time. After trying to calm the patient he stated he was going to punch this RN in the face and that he wanted to get up out of the bed. His breathing began to increase in rate and became labored while he was visibly distressed asking for his . The forest economics professor in the room showed a HR of 190 with a narrow QRS complex and visible p waves. Rate decreased prior to obtaining EKG. Farzana SC[employer]LI[employer] MECHANIC at bedside, instructed to give a dose of PRN labetolol. Rate now in previous rate of sinus tach 100-110 bpm. Patient still visibly anxious and requesting to return. PRN Ativan administered with desired effect. Precedex remains at same rate, see MAR.
[2024-07-31 16:34] LABS: Glucose Point of Care 141 mg/dl (65-105)
[2024-07-31] MEDS: BUDESONIDE RESPULE NEB 0.5 MG/2 ML AMP INHALATION (20:04)
[2024-07-31] MEDS: MONTELUKAST SODIUM 10 MG TABLET PO (20:37)
[2024-07-31 20:49] LABS: Glucose Point of Care 112 mg/dl (65-105)
[2024-07-31 23:42] LABS: Glucose Point of Care 133 mg/dl (65-105)
[2024-08-01] VITALS (33 sets, daily range): BP systolic 136–188; BP diastolic 68–97; PULSE 96–128; RESP 12–23; TEMP 36.4–38.3; O2SAT 92–97
[2024-08-01] MEDS: dexmedeTOMIDine 400 MCG/100 ML 400 MCG/100 ML BAG 14.56 MCG IV CONT (00:12)
[2024-08-01] MEDS: CEFEPIME 2 GM/NS 50 ML 2 GM/50 ML BAG IVPB ×2 (03:50→15:42)
[2024-08-01] MEDS: ACETAMINOPHEN ELIXIR 325 MG/10.15 ML UDC 650 MG PO (04:07)
[2024-08-01 04:16] LABS: Basophils Absolute Auto 0.1 K/mm3 (0.0-0.1); Basophils Percent Auto 0.3 % (0.2-1.2); Eosinophils Absolute Auto 0.2 K/mm3 (0-0.3); Hematocrit 42.5 % (42.0-52.0); Hemoglobin 14.8 g/dL (14.0-18.0); Immature Granulocyte Absolute 0.68 K/mm3 (0.00-0.031); Immature Granulocyte Percent A 2.8 % (0-0.5); Lymphocytes Absolute Auto 2.36 K/mm3 (0.9-3.2); Lymphocytes Percent Auto 9.6 % (18.3-44.2); Mean Corpuscular HGB Conc 34.8 g/dl (32-36); Mean Corpuscular Hemoglobin 31.8 pg (26-34); Mean Corpuscular Volume 91.4 fl (80-100); Mean Platelet Volume 9.7 fl (7.4-10.4); Monocytes Absolute Auto 2.2 K/mm3 (0.1-0.6); Monocytes Percent Auto 8.8 % (2.6-8.5); Neutrophils Absolute Auto 19.2 K/mm3 (1.3-6.7); Neutrophils Percent Auto 77.5 % (45.5-73.1); Platelet Count Result 282 k/mm3 (150-375); Red Blood Count 4.65 M/mm3 (4.6-6.20); Red Cell Distribution Width 13.2 % (11.5-14.5); White Blood Count 24.7 K/mm3 (4.5-10.0)
[2024-08-01 04:28] LABS: Alanine Aminotransferase 65 U/L (6-50); Albumin Level 3.4 g/dL (3.5-5.1); Alkaline Phosphatase 121 U/L (38-126); Anion Gap 9 mmol/L (4-12); Aspartate Amino Transferase 39 U/L (17-59); Blood Urea Nitrogen 33 mg/dL (9-20); Calcium 8.4 mg/dL (8.4-10.2); Carbon Dioxide 27 mmol/L (22-30); Chloride 103 mmol/L (98-107); Estimated CRCL calculation 74 ml/min; Estimated Glomerular Filt Rate > 60; Glucose 124 mg/dL (65-110); Magnesium 2.3 mg/dL (1.6-2.3); Phosphorus 3.1 mg/dL (2.5-4.5); Potassium 3.6 mmol/L (3.4-5.0); Sodium 139 mmol/L (137-145)
[2024-08-01 04:39] LABS: Alveolar/Arterial O2 Gradient 128.4 mmHg; Base Excess ABG 2.6 mEq/l (+/-2.0); Carboxyhemoglobin 0.6 % THb (0-2.0); Fractional Inspired Oxygen 35 %; HCO3 ABG 24.6 mEq/l (22.0-26.0); Methemoglobin ABG 0.1 %THb (0-1.5); Oxygen Content ABG 20.9 %vol (16.0-22.0); Oxygen Saturation ABG 97.3 % (95.0-100.0); Oxyhemoglobin 96.3 % THb (90.0-100.0); PCO2 ABG 30.9 mmHg (35.0-45.0); PO2 ABG 85.2 mmHg (80.0-100.0); PO2 FiO2 Ratio Arterial Blood 2.43 %; Total Hemoglobin 15.4 g/dL (12.0-18.0)
[2024-08-01 04:40] LABS: Modified Allen's Test Pass; Site Drawn RIGHT RADIAL; pH ABG 7.518 (7.350-7.450)
[2024-08-01 04:41] LABS: Device CPAP
[2024-08-01 04:52] LABS: Vancomycin Trough 15.2 ug/mL (10.0-20.0)
[2024-08-01] MEDS: CENTRAL LINE FLUSH 10 ML IV PUSH ×3 (06:13→22:24)
[2024-08-01] MEDS: LORazepam INJ (*CRX) 2 MG/ML VIAL 1 MG IV PUSH (06:21)
[2024-08-01 07:16] LABS: Glucose Point of Care 126 mg/dl (65-105)
[2024-08-01] MEDS: dexmedeTOMIDine 400 MCG/100 ML 400 MCG/100 ML BAG 6.24 MCG IV CONT (07:43)
[2024-08-01] MEDS: BUDESONIDE RESPULE NEB 0.5 MG/2 ML AMP INHALATION ×2 (07:58→20:27)
[2024-08-01] MEDS: LORATADINE 10 MG TABLET FEED TUBE (08:27)
[2024-08-01] MEDS: ENOXAPARIN 40 MG/0.4 ML SYRINGE SUB-Q (08:27)
[2024-08-01] MEDS: ATORVASTATIN 40 MG TABLET PO (08:27)
[2024-08-01] MEDS: methylPREDNISolone SOD SUCC 40 MG VIAL 20 MG IV PUSH (08:27)
[2024-08-01] MEDS: VANCOMYCIN 1,500 MG/NS 500 ML 1,500 MG/500 ML BAG 250 MG IVPB (08:27)
[2024-08-01] MEDS: PANTOPRAZOLE SODIUM IV 40 MG VIAL IV PUSH (08:27)
[2024-08-01 09:07] LABS: NT Pro B Type Natriuretic Pept 1500 pg/mL (19.9-100)
--- NOTE | 2024-08-01 09:28 | PM.PNPUL ---
Progress Note: A&P Assessment and Plan (1) Status asthmaticus: Code(s): J45.902 - Unspecified asthma with status asthmaticus Status: Acute Assessment and Plan: This 68-year-old man, with normal pulmonary function testing measured 4 months ago, had had frequent coughing and wheezing, with three previous hospitalizations for obstructive airway disease over the last few months. He presented with a several-day history of progressively increasing shortness of breath and coughing. The patient?s clinical history of obstructive airway disease, combined with diagnostic studies showing eosinophilia and significant improvement with oral steroid regimens following each hospitalization, suggests uncontrolled eosinophilic asthma. COVID, influenza, RSV negative RT PCR study on 07/25/2024. The day of admission patient was exposed to inhalation of dust while he was doing yard work. The current presentation is typical for status asthmaticus, as the patient exhibited respiratory alkalosis, did not respond to bronchodilators administered in the ER, and progressed to metabolic and respiratory acidosis. Following intubation, the patient was fully sedated and paralyzed due to difficulties encountered by the camp cook in ventilating him. Yesterday, a review of respiratory mechanics while the patient was passively ventilated showed a total respiratory resistance of 20 cm/L/sec, which is mildly elevated, and an expiratory time constant of 0.64 seconds, which is in the normal range. There was no auto PEEP. His chest CT shows mild atelectasis at the bases posteriorly and small pleural effusions, with no evidence of lower respiratory tract infection. 07/27/2024: Sputum Gram stain no epithelial cells, few Gram-positive cocci, growth of normal hsefali. 07/29/24: Over the past 24 hours, the patient's respiratory status has remained stable while being fully sedated and paralyzed on mechanical ventilation. The patient did not successfully complete the weaning trial yesterday. This morning, while still sedated and paralyzed on mechanical ventilation, respiratory mechanics indicated an inspiratory resistance of 14, static compliance of 36, and an expiratory time constant of 0.53, with a peak inspiratory pressure of 22 while receiving a tidal volume of 450 mL and 8 cm of PEEP. These values are essentially normal. The physical examination revealed no wheezing. A chest X-ray showed a possible left lower lobe infiltrate or small effusion. Agitation appears to be the limiting factor for weaning. Considering the significant improvement in respiratory mechanics and the absence of wheezing on physical examination, the IV steroid dose has been reduced to once daily. A sputum culture will be ordered to investigate the possibility of left lower lobe pneumonia. The patient is not currently on antibiotics. The case was discussed with the camp cook, and another weaning trial is planned for today. 07/30/24: patient remains sedated with propofol, Precedex and p.r.n. Versed. On turning down the propofol and Precedex the patient was able to follow simple commands but after 10 minutes became agitated, tachypneic with desaturations. This has been the pattern for him and he has been unsuccessful at tolerating a spontaneous breathing trial on lower sedation. When he was sedated he has no wheezing and low peak airway pressures. Plan: Recommend decreasing Solu-Medrol to 30 mg IV q.day, today is day 6 of systemic steroids. Continue DuoNebs q.6 hours. I will discontinue trilogy as he is high dose beta agonist and muscarinic antagonist with the DuoNebs and he is on systemic steroids. Continue montelukast 10. Chest x-ray with possible left lower lobe infiltrate and agree with CT scan to fully assess for possible pneumonia. Procalcitonin is 0.2. Repeat sputum Gram stain from 07/29/2024 with rare epithelial cells, rare white blood cells and a few mixed bacterial shefali. Cultures pending. When the patient is sedated he has no wheezing and his peak airway pressures are low indicating the absence of bronchospasm. I suspect his asthma and possible COPD have been treated adequately with 6 days of steroids and bronchodilators. It is unlikely that the patient will be able to tolerate decreasing his sedation for an acceptable spontaneous breathing trial and will likely need to decrease his sedation and proceed straight to extubation. Later in the day patient had a CT scan of the chest demonstrating minimal right upper lobe infiltrate, minimal left lower lobe greater than right lower lobe basilar infiltrate with no focal consolidations or evidence of emphysema. Empirically started on vancomycin and cefepime for possible pneumonia with fever, increased secretions and these minimal infiltrates. 07/31/2024: Patient remains intubated and sedated with fentanyl 200, propofol 50 and Precedex 1.5. he is on tidal volume of 450 with peak airway pressure is 20 and 60% with a PEEP of 8. ABG 7.45/38/92. White blood cell count 18.9, creatinine 0.75. He is afebrile. Plan: Patient on Solu-Medrol 30 mg IV q.day, day 7 of systemic steroids. DuoNebs q.6 hours. Montelukast 10. I will add budesonide 500 mcg b.i.d. and plan to decrease Solu-Medrol to 20 q.day starting 08/01/2024. agree with vancomycin and cefepime for possible pneumonia, both day 2. Agree with plan to decrease his sedation and once he can follow simple commands proceed straight to extubation as he has been unable to tolerate being on lower dose of sedation for a spontaneous breathing trial. 08/01/2024: Patient remains extubated. He is still on low-dose Precedex. He does know his name and is place but is confused. Follow simple commands. Denies any respiratory distress. Currently he is on Airvo 40 L and 40% FiO2 saturations 98%. White blood cell count 24.7. Creatinine 0.89. Patient had a fever. Chest x-ray shows minimal atelectasis in the left base with otherwise clear lungs. ABG on CPAP 12 with 35% which he tolerated last night 7. Plan: Patient extubated and in no respiratory distress. His albuterol and ipratropium nebulizers are on hold because of his tachycardia. He is on nebulized budesonide. He received Solu-Medrol 20 mg IV this morning, day 8 of steroids. Continue montelukast 10. Remains on cefepime and vancomycin day 3. Discussed with in the room and Dr. Guerrier (2) Obstructive sleep apnea: Code(s): G47.33 - Obstructive sleep apnea (adult) (pediatric) Status: Acute Assessment and Plan: ENT ordered repeat split night study Dec 2022= AHI 8.4, karen 86%, optimal pressure 12 cm. 07/04/2024: outpatient pulmonary office visit Plan: He has JEISON, has been on PAP for years, had a repeat study Fall 2022 ordered by ENT office, would prefer to come here for sleep and breathing issues. He has a CPAP machine, he needs filters, needs new reservoir, tubing, masks. I have no download to review today. 07/30/2024: currently patient is intubated for his asthma exacerbation. 07/31/24: Once patient is Successfully extubated will place on CPAP 12 at night. will attempt to obtain download from his [employer] which we think is [facility]. 08/01/2024: Patient tolerated hospital CPAP 12 with 35% FiO2. Plan: Spoke with the she will attempt to bring the patient's home CPAP [address] him on his home machine with 3 L bleed in tonight. We contacted [facility] and he has had no recent contact with them and they have no recent downloads. (3) Urticaria: Code(s): L50.9 - Urticaria, unspecified Status: Acute Assessment and Plan: seen by Allergy and immunology on 04/17/2024 For hives for 1 year: Plan was to start cetirizine 10 mg twice a day, famotidine 40 mg twice a day and montelukast 10 mg q.h.s.. 07/30/24: No hives on Solu-Medrol 30 mg q.a.m., montelukast 10, Claritin 10 q.day. will follow. 07/31/2024: No hives on Solu-Medrol 20, montelukast 10 and Claritin 10. 08/01/24: No hives on montelukast 10, Solu-Medrol 20 this morning and Claritin 10. Will follow Subjective Date/time seen: 08/01/24 09:28 Interval history: New Consult date: 07/26/24 Chief complaint: COPD exacerbation Narrative: This is a consultation for a patient with respiratory failure who is currently intubated and fully sedated on mechanical ventilation. This report is based on information obtained from the patient's electronic chart and from the patient's , who was at the bedside. Reportedly, the patient was diagnosed with asthma, and this is the fourth hospitalization for shortness of breath and cough. According to his , the patient's respiratory problems began last August following a COVID-19 infection. In December of last year, while camping in [place], the patient developed a cough with progressively worsening shortness of breath. According to his , he was treated for obstructive airway disease. Since then, the patient has been hospitalized with similar symptoms on two more occasions: once in March at [facility] and again at [facility], where he stayed for 4 to 5 days. His diagnosis was COPD versus asthma, and the patient had been on a Trelegy inhaler and short-acting bronchodilators. After each hospitalization, he received an oral steroid regimen, which led to significant improvement for weeks, but his cough would typically return weeks after stopping the steroids. This hospitalization was prompted by a cough that became progressively worse and shortness of breath since last Tuesday. He had no other respiratory symptoms such as fever, chest pain, orthopnea, or lower extremity edema. Upon evaluation in the emergency room, initial arterial blood gases showed respiratory alkalosis. The patient was treated with nebulized short-acting bronchodilators and BiPAP support. According to ER reports, the patient became somnolent and appeared tired, and because of worsening arterial blood gases, he was intubated. Repeat arterial blood gases in the emergency room showed rising pCO2 and the development of a metabolic component, with a pH of 7.21 and pCO2 of 54 mmHg, consistent with combined respiratory and metabolic acidosis. The patient was transferred to the intensive care unit, where he is currently fully sedated and paralyzed on mechanical ventilation, receiving a tidal volume of 450 mL, total respirations of 18 (all passive), PEEP of 5 cm H2O, and FiO2 of 40%. His chest CT showed mild basal atelectasis and very small pleural effusions bilaterally. Currently, the patient is being treated for obstructive airway disease with IV steroids and nebulized short-acting bronchodilators. His eosinophil count was elevated to over 1800, and previous CBCs showed that eosinophils were similarly elevated on at least three occasions since 2021. A pulmonary function test in April of last year showed essentially normal results. 07/27/24: Patient remains intubated fully sedated and paralyzed on same ventilator settings. 07/28/24: Patient was seen early the morning when his sedative medications were discontinued and the patient was about to go on weaning trial. No new respiratory events over the last 24 hours while the patient was still on sedative paralyzing medications. He has been hemodynamically stable and has been afebrile. 07/29/24: Patient remains sedated on mechanical ventilation. Reportedly failed weaning trial yesterday. Afebrile while on tidal volume 450 peep of 8 and FiO2 45%. 07/30/24: patient remains sedated with propofol, Precedex and p.r.n. Versed. On turning down the propofol and Precedex the patient was able to follow simple commands but after 10 minutes became agitated, tachypneic with desaturations. This has been the pattern for him and he has been unsuccessful at tolerating a spontaneous breathing trial on lower sedation. When he was sedated he has no wheezing and low peak airway pressures. Later in the day patient had a CT scan of the chest demonstrating minimal right upper lobe infiltrate, minimal left lower lobe greater than right lower lobe basilar infiltrate with no focal consolidations or evidence of emphysema. Empirically started on vancomycin and cefepime for possible pneumonia with fever, increased secretions and these minimal infiltrates. 07/31/2024: Patient remains intubated and sedated with fentanyl 200, propofol 50 and Precedex 1.5. he is on tidal volume of 450 with peak airway pressure is 20 and 60% with a PEEP of 8. ABG 7.45/38/92. White blood cell count 18.9, creatinine 0.75. He is afebrile. later in the day the patient was extubated and placed on Airvo 40 L and 40% FiO2. 08/01/2024: Patient remains extubated. He is still on low-dose Precedex. He does know his name and is place but is confused. Follow simple commands. Denies any respiratory distress. Currently he is on Airvo 40 L and 40% FiO2 saturations 98%. White blood cell count 24.7. Creatinine 0.89. Patient had a fever. Chest x-ray shows minimal atelectasis in the left base with otherwise clear lungs. ABG on CPAP 12 with 35% which he tolerated last night 7. DATA: 07/30/24: EXAMINATION:CT diagnostic chest wo con DATE: 07/30/2024 12:23 INDICATION: Acute respiratory failure. TECHNIQUE: Computed tomography (CT) of the chest was performed without intravenous contrast. Automated exposure control and iterative reconstruction technique were employed. The dose-length product (DLP) was 532.14 mGy-cm. COMPARISON: Chest CT 07/25/2024 FINDINGS: There are mild airspace opacities in right upper lobe. There are airspace opacities with volume loss involving the lower lobes, left worse than right. There is a 4 mm nodule in right upper lobe, likely benign. There is a trace left pleural effusion. The heart size is normal. There are coronary artery calcifications. No pericardial effusion. There is an endotracheal tube tip is in expected position. The nasogastric tube tip is in the stomach. A left upper extremity peripherally inserted central venous catheter (PICC) is seen with tip in the right atrium. There is a 4 mm stone in left kidney. There is severe cervical spondylosis and mild thoracic spondylosis. IMPRESSION: 1. Mild airspace opacities in right upper lobe, consistent with atelectasis versus pneumonia. 2. Airspace opacities in the lower lungs with volume loss, left worse than right, likely atelectasis. 07/25/2024: CT diagnostic chest wo con Ordering provider: Maggie Morales APRN History: 68 years Male with . hypoxic . Comparison: None. Technique: CT chest without IV contrast. Radiation reduction technique utilized.The dose-length product was 390.57 mGy-cm. FINDINGS: VISUALIZED THORACIC INLET: Normal. Endotracheal tube is seen in the trachea with the tip at the jose. Nasogastric tube is seen with the tip in the distal stomach. MEDIASTINUM: Aorta/coronary arteries: Mild atheromatous disease. Heart/other: The heart is not enlarged. Lymph nodes: No mediastinal or hilar adenopathy. 1 cm paratracheal lymph node is seen. Precarinal lymph node is seen measuring 1.2 cm. Other smaller lymph nodes are seen LUNGS: Bilateral basal atelectatic changes with trace of effusion more on the right side. No pulmonary nodules or masses. No pneumothorax. VISUALIZED UPPER ABDOMEN: 5 mm stone in the left kidney upper pole. Otherwise, the visualized upper abdomen is normal. MUSCULOSKELETAL: Soft tissues: The superficial soft tissues are normal. Bones: Age appropriate degenerative changes of the spine. IMPRESSION: 1. Minimal bilateral basal atelectasis with minimal effusion. 2. Endotracheal tube with the tip at the jose. Retraction by 2 to 3 cm is advised. 3. Left kidney stone. * 04/04/2024; CXR;INDICATION: Chronic shortness of breath. TECHNIQUE: Frontal and lateral views of the chest were obtained. COMPARISON: Chest view 04/01/2024, chest CT 04/02/2024; FINDINGS: There is mild atelectasis at the lung bases. No pleural effusion or pneumothorax. The heart size is normal. IMPRESSION: 1. Mild atelectasis at the lung bases. * 04/04/2024 urine drug screen; negative for opiates, methadone, barbiturates, phencyclidine, amphetamine, benzodiazepines, cocaine, cannabinoids. * 04/03/2024; alpha-1 anti trypsin phenotype MM, normal. * 04/02/24 extended viral respiratory pathogen panel; adenovirus, rhinovirus/enterovirus, influenza A subtypes H1H3, influenza B, human metapneumovirus, RSV A/B, human parainfluenza 1/2/3. * 04/04/24; VQ scan: 04/04/2024 13:42 INDICATION: Chronic shortness of breath. TECHNIQUE: 7.9 mCi Xenon-133 was given for ventilation images. 5.4 mCi Tc-99m MAA was administered intravenously for perfusion images. Scintigraphic images of the chest were obtained. COMPARISON: Chest 2 views 04/04/2024, chest CT 04/02/2024; FINDINGS: The ventilation images demonstrate retention in the mid and lower lung zones. The perfusion images demonstrate small defects in the lower lobes. IMPRESSION: Low probability for pulmonary embolism. * 04/02/2024; echo;Definity contrast administered improved wall motion interpretation. 2. Left ventricular chamber dimension is normal. 3. Left ventricular systolic function is normal, estimated at 65-70%. 4. The left ventricular diastolic function is grade I diastolic dysfunction. 5. E/e' 7 is not elevated. 6. Left atrial chamber dimension is mildly enlarged. * 04/01/2024 CTA ; There is mild scarring at the lung apices. There is a 3 mm nodule in right upper lobe, likely benign. There is mild atelectasis bilaterally. There is mucous plugging in the lower lobes. No pleural effusion. The heart size is normal. No pericardial effusion. There are coronary artery calcifications. There is no pericardial effusion. There is no pulmonary embolus. There is severe cervical and thoracic spondylosis. IMPRESSION: No pulmonary embolus. * He had negative MRSA swab, viral swabs for influenza A/B, RSV, SARS-CoV-2. Review of Systems Review of Systems: ROS unobtainable: Yes unobtainable due to mental status Exam Const: General: healthy appearing Orientation/consciousness: oriented to person, oriented to place and oriented to time Other: At the end of the spontaneous breathing trial he was agitated and tachypneic. HENMT: Head: normal to inspection Ears: hearing grossly normal bilaterally Eyes: General: appearance normal, both eyes and all related structures Neck: Neck: normal visual inspection Chest: Chest palpation & inspection: normal inspection of the chest Resp: Effort & Inspection: normal respiratory effort and able to speak in complete sentences Auscultation: no crackles, no rales, no rhonchi, wheezes and lung sounds not diminished Other: minimal end expiratory wheezes left lung. Right lung is clear. Cardio: Jugular venous distension: no JVD GI: Inspection: normal to inspection Skin: General skin exam: normal color Neuro: General: oriented to person, oriented to place and oriented to time Other: sedated Extrem: General: normal to inspection Psych: Appearance: grossly normal Objective Data Vital Signs Vital Signs: Vital Signs - 24 hr 07/31/24 09:50 07/31/24 09:50 07/31/24 09:50 Temperature Pulse Rate 114 H 112 H Respiratory Rate 26 H Blood Pressure Pulse Oximetry 92 97 93 Oxygen Delivery High Flow Therapy with Na High Flow Therapy with Na Oxygen Flow Rate 45 60 Fraction of Inspired Oxygen 60 80 07/31/24 09:54 07/31/24 10:00 07/31/24 10:00 Temperature 38.6 C H Pulse Rate 144 H 125 H 126 H Respiratory Rate 15 Blood Pressure 165/98 H Pulse Oximetry 94 Oxygen Delivery Oxygen Flow Rate Fraction of Inspired Oxygen 07/31/24 10:00 07/31/24 10:00 07/31/24 10:06 Temperature Pulse Rate 102 H 102 H 147 H Respiratory Rate 16 18 Blood Pressure Pulse Oximetry Oxygen Delivery Oxygen Flow Rate Fraction of Inspired Oxygen 07/31/24 10:08 07/31/24 10:14 07/31/24 10:14 Temperature Pulse Rate 106 H 102 H 102 H Respiratory Rate 22 H 16 16 Blood Pressure Pulse Oximetry Oxygen Delivery Oxygen Flow Rate Fraction of Inspired Oxygen 07/31/24 11:56 07/31/24 12:00 07/31/24 12:00 Temperature 38.7 C H Pulse Rate 127 H 106 H 106 H Respiratory Rate 14 Blood Pressure 112/73 Pulse Oximetry 94 Oxygen Delivery Oxygen Flow Rate Fraction of Inspired Oxygen 07/31/24 12:00 07/31/24 13:13 07/31/24 14:00 Temperature Pulse Rate 106 H 89 113 H Respiratory Rate 14 17 Blood Pressure Pulse Oximetry 98 Oxygen Delivery High Flow Therapy with Na Oxygen Flow Rate 45 Fraction of Inspired Oxygen 60 07/31/24 14:00 07/31/24 14:03 07/31/24 14:03 Temperature 38.5 C H Pulse Rate 115 H 111 H 111 H Respiratory Rate 14 12 12 Blood Pressure 171/92 H Pulse Oximetry 96 Oxygen Delivery Oxygen Flow Rate Fraction of Inspired Oxygen 07/31/24 14:09 07/31/24 15:33 07/31/24 16:00 Temperature Pulse Rate 104 H 134 H 106 H Respiratory Rate 12 Blood Pressure Pulse Oximetry 95 Oxygen Delivery High Flow Therapy with Na Oxygen Flow Rate 40 Fraction of Inspired Oxygen 45 07/31/24 16:00 07/31/24 16:00 07/31/24 18:00 Temperature 38.6 C H Pulse Rate 106 H 101 H 105 H Respiratory Rate 16 16 Blood Pressure 150/72 H Pulse Oximetry 94 98 Oxygen Delivery High Flow Therapy with Na Oxygen Flow Rate 45 Fraction of Inspired Oxygen 60 07/31/24 18:00 07/31/24 18:32 07/31/24 18:32 Temperature Pulse Rate 105 H 105 H Respiratory Rate 15 17 17 Blood Pressure 161/81 H Pulse Oximetry 97 Oxygen Delivery Oxygen Flow Rate Fraction of Inspired Oxygen 07/31/24 20:00 07/31/24 20:00 07/31/24 20:00 Temperature Pulse Rate 107 H 107 H 109 H Respiratory Rate 15 15 Blood Pressure Pulse Oximetry 96 Oxygen Delivery High Flow Therapy with Na Oxygen Flow Rate 45 Fraction of Inspired Oxygen 60 07/31/24 20:00 07/31/24 20:04 07/31/24 20:04 Temperature 38.1 C H Pulse Rate 107 H 106 H 106 H Respiratory Rate 15 16 16 Blood Pressure 172/82 H Pulse Oximetry 96 95 Oxygen Delivery High Flow Therapy with Na Oxygen Flow Rate 40 Fraction of Inspired Oxygen 41 07/31/24 20:18 07/31/24 20:30 07/31/24 20:37 Temperature Pulse Rate 114 H 105 H 104 H Respiratory Rate 16 15 Blood Pressure Pulse Oximetry Oxygen Delivery Oxygen Flow Rate Fraction of Inspired Oxygen 07/31/24 22:00 07/31/24 22:00 07/31/24 22:00 Temperature 38.1 C H Pulse Rate 110 H 100 100 Respiratory Rate 13 13 Blood Pressure 166/86 H Pulse Oximetry 96 Oxygen Delivery Oxygen Flow Rate Fraction of Inspired Oxygen 07/31/24 22:30 07/31/24 22:45 08/01/24 00:00 Temperature Pulse Rate 104 H 101 H 104 H Respiratory Rate 15 16 23 H Blood Pressure Pulse Oximetry 97 Oxygen Delivery BiPAP Oxygen Flow Rate Fraction of Inspired Oxygen 08/01/24 00:00 08/01/24 00:00 08/01/24 00:00 Temperature 38.2 C H Pulse Rate 103 H 103 H 103 H Respiratory Rate 23 H 23 H Blood Pressure 145/94 H Pulse Oximetry 96 96 Oxygen Delivery CPAP Oxygen Flow Rate Fraction of Inspired Oxygen 35 08/01/24 00:12 08/01/24 00:12 08/01/24 02:00 Temperature Pulse Rate 103 H 103 H 106 H Respiratory Rate 22 H 22 H 18 Blood Pressure Pulse Oximetry Oxygen Delivery Oxygen Flow Rate Fraction of Inspired Oxygen 08/01/24 02:00 08/01/24 02:00 08/01/24 02:58 Temperature Pulse Rate 106 H 106 H 106 H Respiratory Rate 18 20 Blood Pressure 160/96 H Pulse Oximetry 97 97 Oxygen Delivery BiPAP Oxygen Flow Rate Fraction of Inspired Oxygen 08/01/24 04:00 08/01/24 04:00 08/01/24 04:00 Temperature 38.3 C H Pulse Rate 107 H 109 H 107 H Respiratory Rate 18 18 Blood Pressure 164/94 H Pulse Oximetry 96 Oxygen Delivery Oxygen Flow Rate Fraction of Inspired Oxygen 08/01/24 04:00 08/01/24 04:07 08/01/24 04:36 Temperature 38.3 C H Pulse Rate 109 H 112 H Respiratory Rate 18 21 H Blood Pressure Pulse Oximetry 96 97 Oxygen Delivery CPAP BiPAP Oxygen Flow Rate Fraction of Inspired Oxygen 35 08/01/24 05:07 08/01/24 06:00 08/01/24 06:00 Temperature 38.3 C H 38.3 C H Pulse Rate 96 96 Respiratory Rate 14 Blood Pressure 150/85 H Pulse Oximetry 96 Oxygen Delivery Oxygen Flow Rate Fraction of Inspired Oxygen 08/01/24 06:30 08/01/24 07:00 08/01/24 07:43 Temperature Pulse Rate 112 H 105 H 111 H Respiratory Rate 20 17 13 Blood Pressure Pulse Oximetry 94 Oxygen Delivery High Flow Therapy with Na Oxygen Flow Rate 40 Fraction of Inspired Oxygen 40 08/01/24 07:43 08/01/24 08:00 08/01/24 08:00 Temperature 38.1 C H Pulse Rate 111 H 110 H 111 H Respiratory Rate 13 13 13 Blood Pressure 137/88 Pulse Oximetry 97 Oxygen Delivery Oxygen Flow Rate Fraction of Inspired Oxygen 08/01/24 08:00 08/01/24 08:01 08/01/24 08:11 Temperature Pulse Rate 110 H 109 H Respiratory Rate 14 Blood Pressure Pulse Oximetry 95 Oxygen Delivery High Flow Therapy with Na Oxygen Flow Rate 40 Fraction of Inspired Oxygen 41 08/01/24 08:30 08/01/24 08:33 08/01/24 08:39 Temperature Pulse Rate 112 H 114 H Respiratory Rate 12 14 Blood Pressure Pulse Oximetry 96 Oxygen Delivery High Flow Therapy with Na Oxygen Flow Rate 40 Fraction of Inspired Oxygen 41 08/01/24 09:02 Temperature Pulse Rate Respiratory Rate Blood Pressure Pulse Oximetry 95 Oxygen Delivery High Flow Therapy with Na Oxygen Flow Rate 30 Fraction of Inspired Oxygen 30 Intake/Output Intake/Output: Intake & Output 07/29/24 07/30/24 07/31/24 08/01/24 23:59 23:59 23:59 23:59 Intake Total 3628.6 3054.8 2226.7 219.9 Output Total 4980 1550 4150 800 Balance -1351.4 1504.8 -1923.3 -580.1 Meds/Results Medications: Active Medications Generic Name Dose Route Start Last Admin Trade Name Freq PRN Reason Stop Dose Admin Acetaminophen 650 mg 07/25/24 19:51 08/01/24 04:07 Acetaminophen Elixir 325 Mg/10.15 Ml Udc PO 650 mg Q6H PRN Administration Mild Pain (1-3) or Fever Albuterol/Ipratropium 3 ml 07/31/24 10:36 Ipratropium 0.5 Mg/Albuterol Sulfate 2.5 Mg Ampul.Neb 3 Ml INHALATION Q6HRT PRN Wheezing Alprazolam 1 mg 08/01/24 08:30 Alprazolam (*Crx) 0.5 Mg Tablet PO TID PRN Anxiety Atorvastatin Calcium 40 mg 07/27/24 09:00 08/01/24 08:27 Atorvastatin 40 Mg Tablet PO 40 mg DAILY JOSEMANUEL Administration Budesonide 0.5 mg 07/31/24 20:00 08/01/24 07:58 Budesonide Respule Neb 0.5 Mg/2 Ml Amp INHALATION 0.5 mg Q12HRT JOSEMANUEL Administration Dextrose 12.5 gm 07/27/24 12:28 Dextrose 50% 25 Gm/50 Ml Syringe IV PUSH PRN PRN Hypoglycemia Protocol Enoxaparin Sodium 40 mg 07/26/24 09:00 08/01/24 08:27 Enoxaparin 40 Mg/0.4 Ml Syringe SUB-Q 40 mg DAILY JOSEMANUEL Administration Fluticasone/Umeclidinium/Vilanterol 1 puff 08/01/24 08:00 Fluticasone/Umeclidin/Vilanter 100-62.5-25 Mcg Ellipta INHALATION DAILYRT JOSEMANUEL Glucagon 1 mg 07/27/24 12:28 Glucagon For Inj 1 Mg Vial IM PRN PRN Hypoglycemia Protocol Glucose 15 gm 07/27/24 12:28 Glucose Oral Gel 15 Gm Of Glucse In 37.5 Gm Tube PO PRN PRN Hypoglycemia Protocol Hydralazine HCl 10 mg 07/25/24 19:41 07/31/24 14:04 Hydralazine Hcl 20 Mg/Ml Vial IV PUSH 10 mg Q8H PRN Administration BP greater than 180/90 Hydrochlorothiazide 12.5 mg 08/02/24 09:00 Hydrochlorothiazide 12.5 Mg Capsule PO QAM JOSEMANUEL Dextrose 1,000 mls @ 100 mls/hr 07/27/24 12:28 Dextrose 5% 1,000 Ml IVPB PRN PRN Hypoglycemia Protocol Cefepime HCl 2 gm in 50 mls @ 100 mls/hr 07/30/24 15:00 08/01/24 04:20 Maxipime 2 Gm/Ns 50 Ml IVPB Infused Q12H JOSEMANUEL Infusion Vancomycin HCl 1,500 mg in 500 mls @ 250 mls/hr 07/31/24 08:00 08/01/24 08:27 Vancomycin 1,500 Mg/Ns 500 Ml IVPB 250 mls/hr Q12H JOSEMANUEL Administration Insulin Aspart 3 - 6 units 07/27/24 13:00 08/01/24 08:32 Insulin Aspart (*Bkc) 100 Units/Ml SUB-Q Not Given Q4HR [facility] Protocol Labetalol HCl 20 mg 07/31/24 10:33 07/31/24 20:37 Labetalol Hcl Inj 100 Mg/20 Ml Vial IV PUSH 20 mg Q4H PRN Administration SBP > 160 and HR> 60 -1st choice Loratadine 10 mg 07/26/24 09:51 08/01/24 08:27 Loratadine 10 Mg Tablet FEED TUBE 10 mg QAM JOSEMANUEL Administration Metoprolol Tartrate 25 mg 08/01/24 09:15 Metoprolol Tartrate 25 Mg Tablet PO Q12HR JOSEMANUEL Montelukast Sodium 10 mg 07/26/24 21:00 07/31/24 20:37 Montelukast Sodium 10 Mg Tablet PO 10 mg QHS JOSEMANUEL Administration Pantoprazole Sodium 40 mg 08/01/24 09:00 08/01/24 08:49 Pantoprazole 40 Mg Tablet PO Not Given QAM JOSEMANUEL Sodium Chloride 20 ml 07/26/24 10:36 Central Line Flush IV PUSH PRN PRN after blood draws Sodium Chloride 10 ml 07/26/24 10:36 Central Line Flush IV PUSH PRN PRN with TPN bag changes Sodium Chloride 10 ml 07/26/24 14:00 08/01/24 06:13 Central Line Flush IV PUSH 10 ml Q8HR JOSEMANUEL Administration Radiology Results: ITS Impressions Abdomen X-Ray 07/25/24 16:47 IMPRESSION: 1. Endotracheal tube tip 1 cm above the jose. 2. No acute cardiopulmonary disease. 3. Nasogastric tube extends into the stomach with distal tip projecting near the level of the gastroesophageal junction. Unclear with only AP projections tube extends back into the gastroesophageal junction were positioned more anteriorly in the body but superimposed over the gastroesophageal junction. Consider obtaining an oblique or crosstable lateral view for more definitive determination. Renal Ultrasound 07/27/24 14:10 IMPRESSION: 1. Normal kidneys without hydronephrosis. Chest CT 07/30/24 13:27 IMPRESSION: 1. Mild airspace opacities in right upper lobe, consistent with atelectasis versus pneumonia. 2. Airspace opacities in the lower lungs with volume loss, left worse than right, likely atelectasis. Chest X-Ray 08/01/24 06:20 Impression: Discoid left basilar atelectasis or scarring, otherwise clear lungs. Left-sided PICC line. Labs Labs: Laboratory Results - last 24 hr 07/31/24 07/31/24 07/31/24 11:56 16:31 20:32 WBC RBC Hgb Hct MCV MCH MCHC RDW Plt Count MPV Immature Gran % (Auto) Neut % (Auto) Lymph % (Auto) [place] % (Auto) Eos % (Auto) Baso % (Auto) Lymph # (Auto) [place] # (Auto) Eos # (Auto) Baso # (Auto) Abs Immat Gran (auto) Absolute Neuts (auto) Absolute Nucleated RBC Nucleated RBC % Puncture Site ABG pH ABG pCO2 ABG pO2 ABG PO2/FiO2 Ratio ABG HCO3 ABG O2 Saturation ABG O2 Content ABG Base Excess A-a Gradient Oxyhemoglobin Carboxyhemoglobin Methemoglobin Reduced Hemoglobin Total Hemoglobin O2 Delivery Device O2 Liters/Min Vent Rate FiO2 Expiratory Pressure Inspiratory Pressure Sodium Potassium Chloride Carbon Dioxide Anion Gap BUN Creatinine Estim Creat Clear Calc Estimated GFR Glucose POC Capillary Glucose 161 H 141 H 112 H Calcium Phosphorus Magnesium Total Bilirubin AST ALT Alkaline Phosphatase NT-Pro-B Natriuret Pep Total Protein Albumin Vancomycin Trough 07/31/24 08/01/24 08/01/24 23:38 04:11 07:11 WBC 24.7 H RBC 4.65 Hgb 14.8 Hct 42.5 MCV 91.4 MCH 31.8 MCHC 34.8 RDW 13.2 Plt Count 282 MPV 9.7 Immature Gran % (Auto) 2.8 H Neut % (Auto) 77.5 H Lymph % (Auto) 9.6 L [place] % (Auto) 8.8 H Eos % (Auto) 1.0 Baso % (Auto) 0.3 Lymph # (Auto) 2.36 [place] # (Auto) 2.2 H Eos # (Auto) 0.2 Baso # (Auto) 0.1 Abs Immat Gran (auto) 0.68 H Absolute Neuts (auto) 19.2 H Absolute Nucleated RBC 0.000 Nucleated RBC % 0.0 Puncture Site Right radial ABG pH 7.518 H* ABG pCO2 30.9 L ABG pO2 85.2 ABG PO2/FiO2 Ratio 2.43 ABG HCO3 24.6 ABG O2 Saturation 97.3 ABG O2 Content 20.9 ABG Base Excess 2.6 A-a Gradient 128.4 Oxyhemoglobin 96.3 Carboxyhemoglobin 0.6 Methemoglobin 0.1 Reduced Hemoglobin 3.0 Total Hemoglobin 15.4 O2 Delivery Device Cpap O2 Liters/Min Not Reportable Vent Rate Not Reportable FiO2 35 Expiratory Pressure 12 Inspiratory Pressure Not Reportable Sodium 139 Potassium 3.6 Chloride 103 Carbon Dioxide 27 Anion Gap 9 BUN 33 H Creatinine 0.89 Estim Creat Clear Calc 74 Estimated GFR > 60 Glucose 124 H POC Capillary Glucose 133 H 126 H Calcium 8.4 Phosphorus 3.1 Magnesium 2.3 Total Bilirubin 1.0 AST 39 ALT 65 H Alkaline Phosphatase 121 NT-Pro-B Natriuret Pep 1500 H Total Protein 6.0 L Albumin 3.4 L Vancomycin Trough 15.2
--- NOTE | 2024-08-01 10:04 | P.PNINT_ITS ---
Progress Note: A&P Assessment and Plan (1) Acute respiratory failure with hypoxia and hypercapnia: Code(s): J96.01 - Acute respiratory failure with hypoxia; J96.02 - Acute respiratory failure with hypercapnia Status: Acute Assessment and Plan: Acute hypoxic and hypercarbic respiratory failure which appears to be secondary to status asthmaticus. Patient has history of allergic asthma and his presentation is consistent. Patient may also have mild underlying COPD considering his long history of smoking but has not been officially diagnosed. CT scan did not show any infiltrates and procalcitonin level was low suggesting against any pneumonia Currently intubated and on mechanical ventilation. Patient was heavily sedated. Patient was still asynchronous with ventilator and was given rocuronium and started on Nimbex infusion 07/27 patient's Nimbex infusion was discontinued and sedation was lowered. As the sedation wore off patient became more tachypneic with asynchrony with the ventilator. At that time patient had high peak pressures and bilateral wheezing. Patient was started back on sedation and had to BT paralyzed. 07/28 pause Nimbex infusion. Will try to wean off sedation and evaluate for weaning trial today. Hold further fluids 07/29 patient has been exhibiting dynamic airway obstruction. When sedated and paralyzed clearly his airway pressures are low, no wheezing. When paralytics are discontinued in sedation is lowered patient becomes tachypneic, asynchronous with ventilator leading to high peak pressures and wheezing on exam.. I have him on Precedex infusion for anxiolysis. I will again discontinue Nimbex infusion and then lower propofol. Depending on how he responds will evaluate for weaning trial. 07/30 sedation holiday was performed despite being on Precedex and low-dose of propofol patient was tachypneic with respiratory rate in 40s high tidal volume and drop in saturation. Weaning trial attempt was aborted and patient was placed back on sedation Chest x-ray reviewed and shows possible left lower lobe infiltrate. With increased respiratory secretion and low-grade fever this morning I obtained blood cultures and sputum culture which are pending. Procalcitonin level was still low but CT scan of the chest showed mild airspace opacities in right upper lobe. Patient was started on vancomycin cefepime empirically for pneumonia 07/31 I reviewed chest x-ray ABG and ventilator settings. I discussed the case with electric motor controls assembler. We will we suspect that patient failure to wean and doing poorly on trial could have been secondary to anxiety and agitation rather than respiratory considering there has been significant improvement wheezing and when patient is sedated his peak pressures were low and will lung exam does not exhibit any wheezing. We decided to extubate patient today without a trial. I spoke to patient's and sister who who was in ICU nurse and discussed both risks and benefits of extubating patient without a weaning trial as long as his oxygenation and vital stable. They verbalized understandings of both risks which involved him needing Airvo, nippv or even re-intubation if he fails. And agreed to proceed I turned patient's fentanyl off in later propofol. Room was set up for re- intubation if needed including up went from and drugs. Requested RT to bring Airvo at the bedside. Sedation was turned off and patient eventually started following commands by squeezing hand but when I explained to the patient that we will plan to take the tube out he stopped responding and start following commands. Patient was placed on CPAP and had adequate tidal volumes and respiratory rate. He did become little tachycardic but did had bronchodilator treatment prior to that. His saturation remained adequate. At that point decision was made to extubate patient. When RT was trying to extubate patient he was biting on the tube and did not wanted the tube removed which was quite atypical. Despite he explaining to the patient that he was doing much better and it was time to give him a chance to breathe on his own he kept on biting on the tube and would not let it go. With difficulty we were able to extubate the patient and patient was placed on Airvo his sats remained well and respiratory rate improved. He did become tachycardic and blood pressure was slightly elevated and was given labetalol. At that point when RT try to suction patient with yaunker he kept on biting on the yaunker and would not let it go. Patient was given labetalol and also 2 mg of Versed to treat his anxiety and then nursing staff was able to remove the on curve from his teeth. I requested family to come at bedside to help with his anxiety and agitation.. At this point when I spoke to patient's sister directly and asked if patient has any history of psychiatric disorder she told me the patient has history of depression and ADHD and is currently not on any treatment. I was at bedside directly managing patient and also discussing with electric motor controls assembler and family during this time At this point patient is doing reasonable and is on Airvo at 45 L and 60% FiO2. His heart rate is in 100s. He does not have any significant wheezing on exam or stridor on neck auscultation. His blood pressure is slightly elevated. I will continue p.r.n. suctioning, Precedex for anxiolysis, p.r.n. Ativan for agitation, supplemental oxygen and monitor closely / in doing much better clinically. I will continue to wean FiO2 and flow on Airvo. Decreased 30% and 30 L. add Xanax p.r.n. for anxiety. Discontinue Solu- Medrol. Continue bronchodilators but only p.r.n. Add incentive spirometry Up in chair Contain Claritin and Singulair (2) Hypertension: Qualifiers: Hypertension type: primary hypertension Qualified Code(s): I10 - Essential (primary) hypertension Code(s): I10 - Essential (primary) hypertension Status: Chronic Assessment and Plan: Resume p.o. metoprolol and hydrochlorothiazide P.r.n. labetalol (3) Allergic asthma: Qualifiers: Asthma complication type: with acute exacerbation Asthma persistence: persistent Asthma severity: severe Qualified Code(s): J45.51 - Severe persistent asthma with (acute) exacerbation Code(s): J45.909 - Unspecified asthma, uncomplicated Status: Acute Assessment and Plan: See above (4) COPD (chronic obstructive pulmonary disease): Qualifiers: COPD type: unspecified COPD Qualified Code(s): J44.9 - Chronic obstructive pulmonary disease, unspecified Code(s): J44.9 - Chronic obstructive pulmonary disease, unspecified Status: Acute Assessment and Plan: See above (5) Obstructive sleep apnea: Code(s): G47.33 - Obstructive sleep apnea (adult) (pediatric) Status: Acute Assessment and Plan: CPAP ordered for at night (6) Status asthmaticus: Code(s): J45.902 - Unspecified asthma with status asthmaticus Status: Acute Assessment and Plan: See above (7) GRACIELA (acute kidney injury): Code(s): N17.9 - Acute kidney failure, unspecified Status: Acute Assessment and Plan: Resolve (8) Pneumonia: Code(s): J18.9 - Pneumonia, unspecified organism Status: Acute Assessment and Plan: See above Plan DVT prophylaxis -Lovenox Stress ulcer prophylaxis -Protonix Nutrition - npo now. Consult speech therapy for swallow evaluation Code Status - Full Code Case discussed with pulmonology Consult PT OT Incentive spirometer Up in chair Consult speech for swallow evaluation Total Critical Care Time - 30 minutes Due to a high probability of clinically significant, life threatening deterioration, the patient required my highest level of preparedness to intervene emergently and I personally spent this critical care time directly and personally managing the patient. This critical care time included obtaining a history; examining the patient; pulse oximetry; ordering and review of studies; arranging urgent treatment with development of a management plan; evaluation of patient's response to treatment; frequent reassessment; and discussions with other providers. It was exclusive of separately billable procedures and treating other patients and teaching time. Please see Assessment and Plan section and the rest of the note for further information on patient assessment and treatment Subjective Date/time seen: 08/01/24 Patient was extubated yesterday and was on Airvo through the day and on CPAP at night for his sleep apnea He wore CPAP for most of the night and then got anxious and was taken off of CPAP in place back on airvo This morning he is on low-dose Precedex infusion. He states he feels better. Denies any shortness a breath chest pain cough nausea vomiting abdominal pain. All other systems were reviewed and were negative Sinus tachycardia them on. Respiratory rate is in acceptable range. He is npo. Febrile overnight Review of Systems Review of Systems: All systems reviewed & are unremarkable except as noted in HPI and below (HPI) Exam Narrative: General: Pt is alert awake and in no distress Lungs/Chest: Trachea central nol wheezing, Improved overall air movement, no wheezing when patient is sedated. Cardiac: RRR. Normal S1 S2. No murmurs Circulation: Pedal pulses are intact and symmetrical. Abdomen: Decreased bowel sounds. Obese. Soft. NT. ND. Extremities: No clubbing, cyanosis or edema. Warm : Garcia in place Neurologic: AO x3 , follows commands all 4 extremities. PERRL Objective Data Vital Signs Vital Signs: Vital Signs - 24 hr 07/31/24 10:06 07/31/24 10:08 07/31/24 10:14 Temperature Pulse Rate 147 H 106 H 102 H Respiratory Rate 22 H 16 Blood Pressure Pulse Oximetry Oxygen Delivery Oxygen Flow Rate Fraction of Inspired Oxygen 07/31/24 10:14 07/31/24 11:56 07/31/24 12:00 Temperature 38.7 C H Pulse Rate 102 H 127 H 106 H Respiratory Rate 16 14 Blood Pressure 112/73 Pulse Oximetry 94 Oxygen Delivery Oxygen Flow Rate Fraction of Inspired Oxygen 07/31/24 12:00 07/31/24 12:00 07/31/24 13:13 Temperature Pulse Rate 106 H 106 H 89 Respiratory Rate 14 17 Blood Pressure Pulse Oximetry 98 Oxygen Delivery High Flow Therapy with Na Oxygen Flow Rate 45 Fraction of Inspired Oxygen 60 07/31/24 14:00 07/31/24 14:00 07/31/24 14:03 Temperature 38.5 C H Pulse Rate 113 H 115 H 111 H Respiratory Rate 14 12 Blood Pressure 171/92 H Pulse Oximetry 96 Oxygen Delivery Oxygen Flow Rate Fraction of Inspired Oxygen 07/31/24 14:03 07/31/24 14:09 07/31/24 15:33 Temperature Pulse Rate 111 H 104 H 134 H Respiratory Rate 12 12 Blood Pressure Pulse Oximetry 95 Oxygen Delivery High Flow Therapy with Na Oxygen Flow Rate 40 Fraction of Inspired Oxygen 45 07/31/24 16:00 07/31/24 16:00 07/31/24 16:00 Temperature 38.6 C H Pulse Rate 106 H 106 H 101 H Respiratory Rate 16 16 Blood Pressure 150/72 H Pulse Oximetry 94 98 Oxygen Delivery High Flow Therapy with Na Oxygen Flow Rate 45 Fraction of Inspired Oxygen 60 07/31/24 18:00 07/31/24 18:00 07/31/24 18:32 Temperature Pulse Rate 105 H 105 H Respiratory Rate 15 17 Blood Pressure 161/81 H Pulse Oximetry 97 Oxygen Delivery Oxygen Flow Rate Fraction of Inspired Oxygen 07/31/24 18:32 07/31/24 20:00 07/31/24 20:00 Temperature Pulse Rate 105 H 107 H 107 H Respiratory Rate 17 15 15 Blood Pressure Pulse Oximetry 96 Oxygen Delivery High Flow Therapy with Na Oxygen Flow Rate 45 Fraction of Inspired Oxygen 60 07/31/24 20:00 07/31/24 20:00 07/31/24 20:04 Temperature 38.1 C H Pulse Rate 109 H 107 H 106 H Respiratory Rate 15 16 Blood Pressure 172/82 H Pulse Oximetry 96 Oxygen Delivery Oxygen Flow Rate Fraction of Inspired Oxygen 07/31/24 20:04 07/31/24 20:18 07/31/24 20:30 Temperature Pulse Rate 106 H 114 H 105 H Respiratory Rate 16 16 15 Blood Pressure Pulse Oximetry 95 Oxygen Delivery High Flow Therapy with Na Oxygen Flow Rate 40 Fraction of Inspired Oxygen 41 07/31/24 20:37 07/31/24 22:00 07/31/24 22:00 Temperature 38.1 C H Pulse Rate 104 H 110 H 100 Respiratory Rate 13 Blood Pressure 166/86 H Pulse Oximetry 96 Oxygen Delivery Oxygen Flow Rate Fraction of Inspired Oxygen 07/31/24 22:00 07/31/24 22:30 07/31/24 22:45 Temperature Pulse Rate 100 104 H 101 H Respiratory Rate 13 15 16 Blood Pressure Pulse Oximetry 97 Oxygen Delivery BiPAP Oxygen Flow Rate Fraction of Inspired Oxygen 08/01/24 00:00 08/01/24 00:00 08/01/24 00:00 Temperature Pulse Rate 104 H 103 H 103 H Respiratory Rate 23 H 23 H Blood Pressure Pulse Oximetry 96 Oxygen Delivery CPAP Oxygen Flow Rate Fraction of Inspired Oxygen 35 08/01/24 00:00 08/01/24 00:12 08/01/24 00:12 Temperature 38.2 C H Pulse Rate 103 H 103 H 103 H Respiratory Rate 23 H 22 H 22 H Blood Pressure 145/94 H Pulse Oximetry 96 Oxygen Delivery Oxygen Flow Rate Fraction of Inspired Oxygen 08/01/24 02:00 08/01/24 02:00 08/01/24 02:00 Temperature Pulse Rate 106 H 106 H 106 H Respiratory Rate 18 18 Blood Pressure 160/96 H Pulse Oximetry 97 Oxygen Delivery Oxygen Flow Rate Fraction of Inspired Oxygen 08/01/24 02:58 08/01/24 04:00 08/01/24 04:00 Temperature Pulse Rate 106 H 107 H 109 H Respiratory Rate 20 18 Blood Pressure Pulse Oximetry 97 Oxygen Delivery BiPAP Oxygen Flow Rate Fraction of Inspired Oxygen 08/01/24 04:00 08/01/24 04:00 08/01/24 04:07 Temperature 38.3 C H 38.3 C H Pulse Rate 107 H 109 H Respiratory Rate 18 18 Blood Pressure 164/94 H Pulse Oximetry 96 96 Oxygen Delivery CPAP Oxygen Flow Rate Fraction of Inspired Oxygen 35 08/01/24 04:36 08/01/24 05:07 08/01/24 06:00 Temperature 38.3 C H Pulse Rate 112 H 96 Respiratory Rate 21 H Blood Pressure Pulse Oximetry 97 Oxygen Delivery BiPAP Oxygen Flow Rate Fraction of Inspired Oxygen 08/01/24 06:00 08/01/24 06:30 08/01/24 07:00 Temperature 38.3 C H Pulse Rate 96 112 H 105 H Respiratory Rate 14 20 17 Blood Pressure 150/85 H Pulse Oximetry 96 94 Oxygen Delivery High Flow Therapy with Na Oxygen Flow Rate 40 Fraction of Inspired Oxygen 40 08/01/24 07:43 08/01/24 07:43 08/01/24 08:00 Temperature Pulse Rate 111 H 111 H 110 H Respiratory Rate 13 13 13 Blood Pressure Pulse Oximetry Oxygen Delivery Oxygen Flow Rate Fraction of Inspired Oxygen 08/01/24 08:00 08/01/24 08:00 08/01/24 08:01 Temperature 38.1 C H Pulse Rate 111 H 110 H Respiratory Rate 13 Blood Pressure 137/88 Pulse Oximetry 97 95 Oxygen Delivery High Flow Therapy with Na Oxygen Flow Rate 40 Fraction of Inspired Oxygen 41 08/01/24 08:11 08/01/24 08:30 08/01/24 08:33 Temperature Pulse Rate 109 H 112 H 114 H Respiratory Rate 14 12 14 Blood Pressure Pulse Oximetry Oxygen Delivery Oxygen Flow Rate Fraction of Inspired Oxygen 08/01/24 08:39 08/01/24 09:02 Temperature Pulse Rate Respiratory Rate Blood Pressure Pulse Oximetry 96 95 Oxygen Delivery High Flow Therapy with Na High Flow Therapy with Na Oxygen Flow Rate 40 30 Fraction of Inspired Oxygen 41 30 Intake/Output Intake/Output: Intake & Output 07/29/24 07/30/24 07/31/24 08/01/24 23:59 23:59 23:59 23:59 Intake Total 3628.6 3054.8 2226.7 219.9 Output Total 4980 1550 4150 800 Balance -1351.4 1504.8 -1923.3 -580.1 Meds/Results Medications: Active Medications Generic Name Dose Route Start Last Admin Trade Name Freq PRN Reason Stop Dose Admin Acetaminophen 650 mg 07/25/24 19:51 08/01/24 04:07 Acetaminophen Elixir 325 Mg/10.15 Ml Udc PO 650 mg Q6H PRN Administration Mild Pain (1-3) or Fever Albuterol/Ipratropium 3 ml 07/31/24 10:36 Ipratropium 0.5 Mg/Albuterol Sulfate 2.5 Mg Ampul.Neb 3 Ml INHALATION Q6HRT PRN Wheezing Alprazolam 1 mg 08/01/24 08:30 Alprazolam (*Crx) 0.5 Mg Tablet PO TID PRN Anxiety Atorvastatin Calcium 40 mg 07/27/24 09:00 08/01/24 08:27 Atorvastatin 40 Mg Tablet PO 40 mg DAILY JOSEMANUEL Administration Budesonide 0.5 mg 07/31/24 20:00 08/01/24 07:58 Budesonide Respule Neb 0.5 Mg/2 Ml Amp INHALATION 0.5 mg Q12HRT JOSEMANUEL Administration Dextrose 12.5 gm 07/27/24 12:28 Dextrose 50% 25 Gm/50 Ml Syringe IV PUSH PRN PRN Hypoglycemia Protocol Enoxaparin Sodium 40 mg 07/26/24 09:00 08/01/24 08:27 Enoxaparin 40 Mg/0.4 Ml Syringe SUB-Q 40 mg DAILY JOSEMANUEL Administration Fluticasone/Umeclidinium/Vilanterol 1 puff 08/01/24 08:00 Fluticasone/Umeclidin/Vilanter 100-62.5-25 Mcg Ellipta INHALATION DAILYRT JOSEMANUEL Glucagon 1 mg 07/27/24 12:28 Glucagon For Inj 1 Mg Vial IM PRN PRN Hypoglycemia Protocol Glucose 15 gm 07/27/24 12:28 Glucose Oral Gel 15 Gm Of Glucse In 37.5 Gm Tube PO PRN PRN Hypoglycemia Protocol Hydralazine HCl 10 mg 07/25/24 19:41 07/31/24 14:04 Hydralazine Hcl 20 Mg/Ml Vial IV PUSH 10 mg Q8H PRN Administration BP greater than 180/90 Hydrochlorothiazide 12.5 mg 08/02/24 09:00 Hydrochlorothiazide 12.5 Mg Capsule PO QAM JOSEMANUEL Dextrose 1,000 mls @ 100 mls/hr 07/27/24 12:28 Dextrose 5% 1,000 Ml IVPB PRN PRN Hypoglycemia Protocol Cefepime HCl 2 gm in 50 mls @ 100 mls/hr 07/30/24 15:00 08/01/24 04:20 Maxipime 2 Gm/Ns 50 Ml IVPB Infused Q12H JOSEMANUEL Infusion Vancomycin HCl 1,500 mg in 500 mls @ 250 mls/hr 07/31/24 08:00 08/01/24 08:27 Vancomycin 1,500 Mg/Ns 500 Ml IVPB 250 mls/hr Q12H JOSEMANUEL Administration Insulin Aspart 3 - 6 units 07/27/24 13:00 08/01/24 08:32 Insulin Aspart (*Bkc) 100 Units/Ml SUB-Q Not Given Q4HR [facility] Protocol Labetalol HCl 20 mg 07/31/24 10:33 07/31/24 20:37 Labetalol Hcl Inj 100 Mg/20 Ml Vial IV PUSH 20 mg Q4H PRN Administration SBP > 160 and HR> 60 -1st choice Loratadine 10 mg 07/26/24 09:51 08/01/24 08:27 Loratadine 10 Mg Tablet FEED TUBE 10 mg QAM JOSEMANUEL Administration Metoprolol Tartrate 25 mg 08/01/24 09:15 Metoprolol Tartrate 25 Mg Tablet PO Q12HR JOSEMANUEL Montelukast Sodium 10 mg 07/26/24 21:00 07/31/24 20:37 Montelukast Sodium 10 Mg Tablet PO 10 mg QHS JOSEMANUEL Administration Pantoprazole Sodium 40 mg 08/01/24 09:00 08/01/24 08:49 Pantoprazole 40 Mg Tablet PO Not Given QAM JOSEMANUEL Sodium Chloride 20 ml 07/26/24 10:36 Central Line Flush IV PUSH PRN PRN after blood draws Sodium Chloride 10 ml 07/26/24 10:36 Central Line Flush IV PUSH PRN PRN with TPN bag changes Sodium Chloride 10 ml 07/26/24 14:00 08/01/24 06:13 Central Line Flush IV PUSH 10 ml Q8HR JOSEMANUEL Administration Radiology Results: ITS Impressions Abdomen X-Ray 07/25/24 16:47 IMPRESSION: 1. Endotracheal tube tip 1 cm above the jose. 2. No acute cardiopulmonary disease. 3. Nasogastric tube extends into the stomach with distal tip projecting near the level of the gastroesophageal junction. Unclear with only AP projections tube extends back into the gastroesophageal junction were positioned more anteriorly in the body but superimposed over the gastroesophageal junction. Consider obtaining an oblique or crosstable lateral view for more definitive determination. Renal Ultrasound 07/27/24 14:10 IMPRESSION: 1. Normal kidneys without hydronephrosis. Chest CT 07/30/24 13:27 IMPRESSION: 1. Mild airspace opacities in right upper lobe, consistent with atelectasis versus pneumonia. 2. Airspace opacities in the lower lungs with volume loss, left worse than right, likely atelectasis. Chest X-Ray 08/01/24 06:20 Impression: Discoid left basilar atelectasis or scarring, otherwise clear lungs. Left-sided PICC line. Labs Labs: Laboratory Results - last 24 hr 07/31/24 07/31/24 07/31/24 11:56 16:31 20:32 WBC RBC Hgb Hct MCV MCH MCHC RDW Plt Count MPV Immature Gran % (Auto) Neut % (Auto) Lymph % (Auto) [place] % (Auto) Eos % (Auto) Baso % (Auto) Lymph # (Auto) [place] # (Auto) Eos # (Auto) Baso # (Auto) Abs Immat Gran (auto) Absolute Neuts (auto) Absolute Nucleated RBC Nucleated RBC % Puncture Site ABG pH ABG pCO2 ABG pO2 ABG PO2/FiO2 Ratio ABG HCO3 ABG O2 Saturation ABG O2 Content ABG Base Excess A-a Gradient Oxyhemoglobin Carboxyhemoglobin Methemoglobin Reduced Hemoglobin Total Hemoglobin O2 Delivery Device O2 Liters/Min Vent Rate FiO2 Expiratory Pressure Inspiratory Pressure Sodium Potassium Chloride Carbon Dioxide Anion Gap BUN Creatinine Estim Creat Clear Calc Estimated GFR Glucose POC Capillary Glucose 161 H 141 H 112 H Calcium Phosphorus Magnesium Total Bilirubin AST ALT Alkaline Phosphatase NT-Pro-B Natriuret Pep Total Protein Albumin Vancomycin Trough 07/31/24 08/01/24 08/01/24 23:38 04:11 07:11 WBC 24.7 H RBC 4.65 Hgb 14.8 Hct 42.5 MCV 91.4 MCH 31.8 MCHC 34.8 RDW 13.2 Plt Count 282 MPV 9.7 Immature Gran % (Auto) 2.8 H Neut % (Auto) 77.5 H Lymph % (Auto) 9.6 L [place] % (Auto) 8.8 H Eos % (Auto) 1.0 Baso % (Auto) 0.3 Lymph # (Auto) 2.36 [place] # (Auto) 2.2 H Eos # (Auto) 0.2 Baso # (Auto) 0.1 Abs Immat Gran (auto) 0.68 H Absolute Neuts (auto) 19.2 H Absolute Nucleated RBC 0.000 Nucleated RBC % 0.0 Puncture Site Right radial ABG pH 7.518 H* ABG pCO2 30.9 L ABG pO2 85.2 ABG PO2/FiO2 Ratio 2.43 ABG HCO3 24.6 ABG O2 Saturation 97.3 ABG O2 Content 20.9 ABG Base Excess 2.6 A-a Gradient 128.4 Oxyhemoglobin 96.3 Carboxyhemoglobin 0.6 Methemoglobin 0.1 Reduced Hemoglobin 3.0 Total Hemoglobin 15.4 O2 Delivery Device Cpap O2 Liters/Min Not Reportable Vent Rate Not Reportable FiO2 35 Expiratory Pressure 12 Inspiratory Pressure Not Reportable Sodium 139 Potassium 3.6 Chloride 103 Carbon Dioxide 27 Anion Gap 9 BUN 33 H Creatinine 0.89 Estim Creat Clear Calc 74 Estimated GFR > 60 Glucose 124 H POC Capillary Glucose 133 H 126 H Calcium 8.4 Phosphorus 3.1 Magnesium 2.3 Total Bilirubin 1.0 AST 39 ALT 65 H Alkaline Phosphatase 121 NT-Pro-B Natriuret Pep 1500 H Total Protein 6.0 L Albumin 3.4 L Vancomycin Trough 15.2 Quality VTE Prophylaxis VTE prophylaxis: pharmacologic ordered
--- NOTE | 2024-08-01 11:21 | PC.NURSE ---
Patient displaying increased and inconsistent confusion episodes. After multiple reassessments he still remains A&O to self and place but not to situation and time as we has been since extubation. Propofol and fentanyl off for >24 hours, Versed off >48 hours, and Precedex on lower dose until early this AM. Until recently he was following commands and answering questions appropriately. He now refuses to take PO meds, refused bedside swallow evaluation, and continues to attempt getting out of bed despite him saying he understands he must wait for PT/OT evaluation this afternoon. Expressed concerns to director [employer] regarding mentation status despite obvious route causes. Family did state that he is an active heavy drinker of 3 beers and 2 mixed drinks per day.
[2024-08-01 11:26] LABS: Glucose Point of Care 161 mg/dl (65-105)
[2024-08-01] MEDS: LABETALOL HCL INJ 100 MG/20 ML VIAL 20 MG IV PUSH (11:32)
--- NOTE | 2024-08-01 12:13 | PCFNICU ---
ICU Rounding Note: Pt current nutrition is NPO. Last recorded weight is 85.1 kg,up from 83 kg on admit. Bowel Motility: Last reported BM 07/27 Labs Reviewed: Glu 124, BUN 33, Alb 3.4 Meds Noted: Lipitor, Lovenox Skin: WNL Additional Notes: Patient currently NPO. Patient refused speech evaluation today. Will continue to follow for speech eval to make recommendations for diet orders. Following daily in ICU rounds. Will monitor weight, labs, skin, diet orders, meds every 3 days.
[2024-08-01] MEDS: hydrALAZINE HCL 20 MG/ML VIAL 10 MG IV PUSH (13:28)
[2024-08-01 15:53] LABS: Glucose Point of Care 126 mg/dl (65-105)
--- NOTE | 2024-08-01 18:44 | PC.NURSE ---
Garcia catheter removed @ 1415. Bladder scan @ 1630 showed bladder volume of 325 ml. No palpable bladder distention and no complaints from patient. Due to void by 1999. Patient responding appropriately at the time of scan and will attempt to void. Family at bedside to reinforce need to urinate prior to 2000
[2024-08-01 20:13] LABS: Glucose Point of Care 120 mg/dl (65-105)
[2024-08-01] MEDS: METOPROLOL TARTRATE INJ 5 MG/5 ML VIAL IV PUSH (21:50)
[2024-08-01] MEDS: OLANZapine DISPERTAB 5 MG PO (23:59)
[2024-08-02] VITALS (14 sets, daily range): BP systolic 151–176; BP diastolic 78–86; PULSE 102–120; RESP 16–22; TEMP 36.4–37.1; O2SAT 93–99
[2024-08-02] MEDS: CEFEPIME 2 GM/NS 50 ML 2 GM/50 ML BAG IVPB ×2 (05:42→15:43)
[2024-08-02 05:46] LABS: Hematocrit 42.8 % (42.0-52.0); Hemoglobin 14.3 g/dL (14.0-18.0); Mean Corpuscular HGB Conc 33.4 g/dl (32-36); Mean Corpuscular Hemoglobin 31.6 pg (26-34); Mean Corpuscular Volume 94.5 fl (80-100); Mean Platelet Volume 9.8 fl (7.4-10.4); Platelet Count Result 331 k/mm3 (150-375); Red Blood Count 4.53 M/mm3 (4.6-6.20); Red Cell Distribution Width 13.2 % (11.5-14.5); White Blood Count 23.9 K/mm3 (4.5-10.0)
[2024-08-02 05:56] LABS: Alanine Aminotransferase 63 U/L (6-50); Albumin Level 3.5 g/dL (3.5-5.1); Alkaline Phosphatase 125 U/L (38-126); Anion Gap 16 mmol/L (4-12); Aspartate Amino Transferase 39 U/L (17-59); Blood Urea Nitrogen 36 mg/dL (9-20); Calcium 8.8 mg/dL (8.4-10.2); Carbon Dioxide 18 mmol/L (22-30); Chloride 108 mmol/L (98-107); Estimated CRCL calculation 67 ml/min; Estimated Glomerular Filt Rate > 60; Glucose 113 mg/dL (65-110); Magnesium 2.7 mg/dL (1.6-2.3); Phosphorus 2.7 mg/dL (2.5-4.5); Potassium 3.8 mmol/L (3.4-5.0); Sodium 142 mmol/L (137-145)
[2024-08-02 06:12] LABS: Total Cells Counted 100
[2024-08-02 06:13] LABS: Atypical Lymphocytes Present; Band Neutrophils Percent 1 % (0-6); Hypersegmented Neutrophils Present; Lymphocytes Absolute Manual 5.25 K/mm3 (1.1-4.5); Lymphocytes Percent Manual 22 % (18-44); Monocytes Absolute Manual 1.67 K/mm3 (0.1-0.90); Monocytes Percent Manual 7 % (3-9); Neutrophils Absolute Manual 16.73 K/mm3 (1.3-6.7); Neutrophils Percent Manual 69 % (46-73); Platelet Estimate Adequate (Adequate); Schistocytes None Seen; Smudge Cells PRESENT
[2024-08-02] MEDS: CENTRAL LINE FLUSH 10 ML IV PUSH ×3 (06:41→20:39)
--- NOTE | 2024-08-02 06:57 | PCSTNOTE ---
Attempted Bedside swallow evaluation on 08/01 but could not complete due to pt being uncooperative; pt would not even take an ice chip. ST will attempt again, today 08/02.
--- NOTE | 2024-08-02 07:50 | PCSTNOTE ---
Please refer to the Bedside Swallow Evaluation in the EMR. Please note, silent aspiration cannot be ruled out at bedside. The above pt was seen for a swallow evaluation at the bedside. Swallow evaluation was attempted yesterday but pt refused any oral trials even ice chips; today pt is more cooperative; his brother was present. The pt was positioned upright in the bed; upon attempts to reposition to more upright, pt appeared very stiff. He was alert & followed simple commands. He is currently NPO pending a swallow evaluation. Oral mucosa is normal/slightly dry; natural dentition is in good condition; cursory oral peripheral exam revealed lingual and labial structures to be within functional limits. He was able to dry swallow on command and exhibited clear vocal quality. He was tested with pudding, crackers, and thin liquids in controlled amounts The oral stages appeared WNL. No oral residue, leakage, or pocketing was noted. During the pharyngeal stage, the swallow reflex appeared prompt & laryngeal elevation was adequate; however intermittent subtle/weak throat clearing was exhibited after the pudding, crackers, and thin liquids when taken via a straw which may be indicative of aspiration. Impression/Recommendations: questionable degree of dysphagia which should be further assessed and ruled out with an MBS; keep NPO until MBS with ice chips only. ST spoke with provider regarding results and recommendations and obtained an order for MBS
[2024-08-02 08:51] LABS: CPAP 12 cmH2O
[2024-08-02] MEDS: ATORVASTATIN 40 MG TABLET PO (09:27)
[2024-08-02] MEDS: LORATADINE 10 MG TABLET FEED TUBE (09:27)
[2024-08-02] MEDS: hydroCHLOROthiazide 12.5 MG CAPSULE PO (09:27)
[2024-08-02] MEDS: METOPROLOL TARTRATE 25 MG TABLET PO ×2 (09:28→20:38)
[2024-08-02] MEDS: PANTOPRAZOLE 40 MG TABLET PO (09:28)
[2024-08-02] MEDS: ENOXAPARIN 40 MG/0.4 ML SYRINGE SUB-Q (09:28)
[2024-08-02] MEDS: FLUTICASONE/UMECLIDIN/VILANTER 100-62.5-25 MCG ELLIPTA 1 PUFF INHALATION (10:17)
--- NOTE | 2024-08-02 10:32 | P.PNIM_ITS ---
Progress Note: A&P Assessment and Plan (1) Acute respiratory failure with hypoxia and hypercapnia: Code(s): J96.01 - Acute respiratory failure with hypoxia; J96.02 - Acute respiratory failure with hypercapnia Status: Acute Assessment and Plan: Acute hypoxic and hypercarbic respiratory failure which appears to be secondary to status asthmaticus. Patient has history of allergic asthma and his presentation is consistent. Patient may also have mild underlying COPD considering his long history of smoking but has not been officially diagnosed. CT scan did not show any infiltrates and procalcitonin level was low suggesting against any pneumonia Currently intubated and on mechanical ventilation. Patient was heavily sedated. Patient was still asynchronous with ventilator and was given rocuronium and started on Nimbex infusion 07/27 patient's Nimbex infusion was discontinued and sedation was lowered. As the sedation wore off patient became more tachypneic with asynchrony with the ventilator. At that time patient had high peak pressures and bilateral wheezing. Patient was started back on sedation and had to BT paralyzed. 07/28 pause Nimbex infusion. Will try to wean off sedation and evaluate for weaning trial today. Hold further fluids 07/29 patient has been exhibiting dynamic airway obstruction. When sedated and paralyzed clearly his airway pressures are low, no wheezing. When paralytics are discontinued in sedation is lowered patient becomes tachypneic, asynchronous with ventilator leading to high peak pressures and wheezing on exam.. I have him on Precedex infusion for anxiolysis. I will again discontinue Nimbex infusion and then lower propofol. Depending on how he responds will evaluate for weaning trial. 07/30 sedation holiday was performed despite being on Precedex and low-dose of propofol patient was tachypneic with respiratory rate in 40s high tidal volume and drop in saturation. Weaning trial attempt was aborted and patient was placed back on sedation Chest x-ray reviewed and shows possible left lower lobe infiltrate. With increased respiratory secretion and low-grade fever this morning I obtained blood cultures and sputum culture which are pending. Procalcitonin level was still low but CT scan of the chest showed mild airspace opacities in right upper lobe. Patient was started on vancomycin cefepime empirically for pneumonia 07/31 I reviewed chest x-ray ABG and ventilator settings. I discussed the case with enterprise application architect. We will we suspect that patient failure to wean and doing poorly on trial could have been secondary to anxiety and agitation rather than respiratory considering there has been significant improvement wheezing and when patient is sedated his peak pressures were low and will lung exam does not exhibit any wheezing. We decided to extubate patient today without a trial. I spoke to patient's and sister who who was in ICU nurse and discussed both risks and benefits of extubating patient without a weaning trial as long as his oxygenation and vital stable. They verbalized understandings of both risks which involved him needing Airvo, nippv or even re-intubation if he fails. And agreed to proceed I turned patient's fentanyl off in later propofol. Room was set up for re- intubation if needed including up went from and drugs. Requested RT to bring Airvo at the bedside. Sedation was turned off and patient eventually started following commands by squeezing hand but when I explained to the patient that we will plan to take the tube out he stopped responding and start following commands. Patient was placed on CPAP and had adequate tidal volumes and respiratory rate. He did become little tachycardic but did had bronchodilator treatment prior to that. His saturation remained adequate. At that point decision was made to extubate patient. When RT was trying to extubate patient he was biting on the tube and did not wanted the tube removed which was quite atypical. Despite he explaining to the patient that he was doing much better and it was time to give him a chance to breathe on his own he kept on biting on the tube and would not let it go. With difficulty we were able to extubate the patient and patient was placed on Airvo his sats remained well and respiratory rate improved. He did become tachycardic and blood pressure was slightly elevated and was given labetalol. At that point when RT try to suction patient with yaunker he kept on biting on the yaunker and would not let it go. Patient was given labetalol and also 2 mg of Versed to treat his anxiety and then nursing staff was able to remove the on curve from his teeth. I requested family to come at bedside to help with his anxiety and agitation.. At this point when I spoke to patient's sister directly and asked if patient has any history of psychiatric disorder she told me the patient has history of depression and ADHD and is currently not on any treatment. I was at bedside directly managing patient and also discussing with enterprise application architect and family during this time At this point patient is doing reasonable and is on Airvo at 45 L and 60% FiO2. His heart rate is in 100s. He does not have any significant wheezing on exam or stridor on neck auscultation. His blood pressure is slightly elevated. I will continue p.r.n. suctioning, Precedex for anxiolysis, p.r.n. Ativan for agitation, supplemental oxygen and monitor closely 08/01 in doing much better clinically. I will continue to wean FiO2 and flow on Airvo. Decreased 30% and 30 L. add Xanax p.r.n. for anxiety. Discontinue Solu- Medrol. Continue bronchodilators but only p.r.n. Add incentive spirometry Up in chair Contain Claritin and Singulair 08/02/24 Improved, Off oxygen saturation 93%. Continue singular, Trelegy. Continue cefepime for possible pneumonia. Pulmonary team on board (2) Hypertension: Qualifiers: Hypertension type: primary hypertension Qualified Code(s): I10 - Essential (primary) hypertension Code(s): I10 - Essential (primary) hypertension Status: Chronic Assessment and Plan: p.o. metoprolol and hydrochlorothiazide P.r.n. labetalol (3) Allergic asthma: Qualifiers: Asthma severity: severe Asthma persistence: persistent Asthma complication type: with acute exacerbation Qualified Code(s): J45.51 - Severe persistent asthma with (acute) exacerbation Code(s): J45.909 - Unspecified asthma, uncomplicated Status: Acute Assessment and Plan: See above (4) COPD (chronic obstructive pulmonary disease): Qualifiers: COPD type: unspecified COPD Qualified Code(s): J44.9 - Chronic obstructive pulmonary disease, unspecified Code(s): J44.9 - Chronic obstructive pulmonary disease, unspecified Status: Acute Assessment and Plan: See above (5) Obstructive sleep apnea: Code(s): G47.33 - Obstructive sleep apnea (adult) (pediatric) Status: Acute Assessment and Plan: CPAP ordered for at night (6) Status asthmaticus: Code(s): J45.902 - Unspecified asthma with status asthmaticus Status: Acute Assessment and Plan: See above (7) GRACIELA (acute kidney injury): Code(s): N17.9 - Acute kidney failure, unspecified Status: Acute Assessment and Plan: Resolve (8) Pneumonia: Code(s): J18.9 - Pneumonia, unspecified organism Status: Acute Assessment and Plan: See above Plan DVT prophylaxis -Lovenox Stress ulcer prophylaxis -Protonix Nutrition - npo now. Consult speech therapy for swallow evaluation Code Status - Full Code Case discussed with pulmonology Consult PT OT Incentive spirometer Up in chair Consult speech for swallow evaluation Total Critical Care Time - 30 minutes Due to a high probability of clinically significant, life threatening deterioration, the patient required my highest level of preparedness to intervene emergently and I personally spent this critical care time directly and personally managing the patient. This critical care time included obtaining a history; examining the patient; pulse oximetry; ordering and review of studies; arranging urgent treatment with development of a management plan; evaluation of patient's response to treatment; frequent reassessment; and discussions with other providers. It was exclusive of separately billable procedures and treating other patients and teaching time. Please see Assessment and Plan section and the rest of the note for further information on patient assessment and treatment Subjective Date/time seen: 08/02/24 10:32 Interval history: Chief complaint: COPD exacerbation Narrative: This is a consultation for a patient with respiratory failure who is currently intubated and fully sedated on mechanical ventilation. This report is based on information obtained from the patient's electronic chart and from the patient's , who was at the bedside. Reportedly, the patient was diagnosed with asthma, and this is the fourth hos pitalization for shortness of breath and cough. According to his , the patient's respiratory problems began last August following a COVID-19 infection. In December of last year, while camping in [place], the patient developed a cough with progressively worsening shortness of breath. According to his , he was treated for obstructive airway disease. Since then, the patient has been hospitalized with similar symptoms on two more occasions: once in March at [facility] and again at [facility], where he stayed for 4 to 5 days. His diagnosis was COPD versus asthma, and the patient had been on a Trelegy inhaler and short-acting bronchodilators. After each hospitalization, he received an oral steroid regimen, which led to significant improvement for weeks, but his cough would typically return weeks after stopping the steroids. This hospitalization was prompted by a cough that became progressively worse and shortness of breath since last Tuesday. He had no other respiratory symptoms such as fever, chest pain, orthopnea, or lower extremity edema. Upon evaluation in the emergency room, initial arterial blood gases showed respiratory alkalosis. The patient was treated with nebulized short-acting bronchodilators and BiPAP support. According to ER reports, the patient became somnolent and appeared tired, and because of worsening arterial blood gases, he was intubated. Repeat arterial blood gases in the emergency room showed rising pCO2 and the development of a metabolic component, with a pH of 7.21 and pCO2 of 54 mmHg, consistent with combined respiratory and metabolic acidosis. The patient was transferred to the intensive care unit, where he is currently fully sedated and paralyzed on mechanical ventilation, receiving a tidal volume of 450 mL, total respirations of 18 (all passive), PEEP of 5 cm H2O, and FiO2 of 40%. His chest CT showed mild basal atelectasis and very small pleural effusions bilaterally. Currently, the patient is being treated for obstructive airway dis ease with IV steroids and nebulized short-acting bronchodilators. His eosinophil count was elevated to over 1800, and previous CBCs showed that eosinophils were similarly elevated on at least three occasions since 2021. A pulmonary function test in April of last year showed essentially normal results. 07/27/24: Patient remains intubated fully sedated and paralyzed on same ventilator settings. 07/28/24: Patient was seen early the morning when his sedative medications were discontinued and the patient was about to go on weaning trial. No new respiratory events over the last 24 hours while the patient was still on sedative paralyzing medications. He has been hemodynamically stable and has been afebrile. 07/29/24: Patient remains sedated on mechanical ventilation. Reportedly failed weaning trial yesterday. Afebrile while on tidal volume 450 peep of 8 and FiO2 45%. 07/30/24: patient remains sedated with propofol, Precedex and p.r.n. Versed. On turning down the propofol and Precedex the patient was able to follow simple commands but after 10 minutes became agitated, tachypneic with desaturations. This has been the pattern for him and he has been unsuccessful at tolerating a spontaneous breathing trial on lower sedation. When he was sedated he has no wheezing and low peak airway pressures. Later in the day patient had a CT scan of the chest demonstrating minimal right upper lobe infiltrate, minimal left lower lobe greater than right lower lobe basilar infiltrate with no focal consolidations or evidence of emphysema. Empirically started on vancomycin and cefepime for possible pneumonia with fever, increased secretions and these minimal infiltrates. 07/31/2024: Patient remains intubated and sedated with fentanyl 200, propofol 50 and Precedex 1.5. he is on tidal volume of 450 with peak airway pressure is 20 and 60% with a PEEP of 8. ABG 7.45/38/92. White blood cell count 18.9, creatinine 0.75. He is afebrile. later in the day the patient was extubated and placed on Airvo 40 L and 40% FiO2. 08/01/2024: Patient remains extubated. He is still on low-dose Precedex. He does know his name and is place but is confused. Follow simple commands. Den ies any respiratory distress. Currently he is on Airvo 40 L and 40% FiO2 saturations 98%. White blood cell count 24.7. Creatinine 0.89. Patient had a fever. Chest x-ray shows minimal atelectasis in the left base with otherwise clear lungs. ABG on CPAP 12 with 35% which he tolerated last night 7.08/02/24 Patient was seen and examined at bedside. He is feeling better. Alert and o riented x3 . His breathing improved. Currently on room air saturation 93%. Denies any chest pain, abdominal pain, nausea vomiting. he has upper and lower extremity weakness. Waiting for PT OT evaluation. Speech therapy evaluated patient plan for a swallow test today. Discussed with pulmonary team DATA: 07/30/24: EXAMINATION:CT diagnostic chest wo con DATE: 07/30/2024 12:23 INDICATION: Acute respiratory failure. TECHNIQUE: Computed tomography (CT) of the chest was performed without intravenous contrast. Automated exposure control and iterative reconstruction technique were employed. The dose-length product (DLP) was 532.14 mGy-cm. COMPARISON: Chest CT 07/25/2024 FINDINGS: There are mild airspace opacities in right upper lobe. There are airspace opacities with volume loss involving the lower lobes, left worse than right. There is a 4 mm nodule in right upper lobe, likely benign. There is a trace left pleural effusion. The heart size is normal. There are coronary artery calcifications. No pericardial effusion. There is an endotracheal tube tip is in expected position. The nasogastric tube tip is in the stomach. A left upper extremity peripherally inserted central venous catheter (PICC) is seen with tip in the right atrium. There is a 4 mm stone in left kidney. There is severe cervical spondylosis and mild thoracic spondylosis. IMPRESSION: 1. Mild airspace opacities in right upper lobe, consistent with atelectasis versus pneumonia. 2. Airspace opacities in the lower lungs with volume loss, left worse than right, likely atelectasis. 07/25/2024: CT diagnostic chest wo con Ordering provider: Maggie Morales, LAZ History: 68 years Male with . hypoxic . Comparison: None. Technique: CT chest without IV contrast. Radiation reduction technique utilized.The dose-length product was 390.57 mGy- cm. FINDINGS: VISUALIZED THORACIC INLET: Normal. Endotracheal tube is seen in the trachea with the tip at the jose. Nasogastric tube is seen with the tip in the distal stomach. MEDIASTINUM: Aorta/coronary arteries: Mild atheromatous disease. Heart/other: The heart is not enlarged. Lymph nodes: No mediastinal or hilar adenopathy. 1 cm paratracheal lymph node is seen. Precarinal lymph node is seen measuring 1.2 cm. Other smaller lymph nodes are seen LUNGS: Bilateral basal atelectatic changes with trace of effusion more on the right side. No pulmonary nodules or masses. No pneumothorax. VISUALIZED UPPER ABDOMEN: 5 mm stone in the left kidney upper pole. Otherwise, the visualized upper abdomen is normal. MUSCULOSKELETAL: Soft tissues: The superficial soft tissues are normal. Bones: Age appropriate degenerative changes of the spine. IMPRESSION: 1. Minimal bilateral basal atelectasis with minimal effusion. 2. Endotracheal tube with the tip at the jose. Retraction by 2 to 3 cm is advised. 3. Left kidney stone. * 04/04/2024; CXR;INDICATION: Chronic shortness of breath. TECHNIQUE: Frontal and lateral views of the chest were obtained. COMPARISON: Chest view 04/01/2024, chest CT 04/02/2024; FINDINGS: There is mild atelectasis at the lung bases. No pleural effusion or pneumothorax. The heart size is normal. IMPRESSION: 1. Mild atelectasis at the lung bases. * 04/04/2024 urine drug screen; negative for opiates, methadone, barbiturates, phencyclidine, amphetamine, benzodiazepines, cocaine, cannabinoids. * 04/03/2024; alpha-1 anti trypsin phenotype MM, normal. * 04/02/24 extended viral respiratory pathogen panel; adenovirus, rhinovirus/enterovirus, influenza A subtypes H1H3, influenza B, human metapneumovirus, RSV A/B, human parainfluenza 1/2/3. * 04/04/24; VQ scan: 04/04/2024 13:42 INDICATION: Chronic shortness of breath. TECHNIQUE: 7.9 mCi Xenon-133 was given for ventilation images. 5.4 mCi Tc-99m MAA was administered intravenously for perfusion images. Scintigraphic images of the chest were obtained. COMPARISON: Chest 2 views 04/04/2024, chest CT 04/02/2024; FINDINGS: The ventilation images demonstrate retention in the mid and lower lung zones. The perfusion images demonstrate small defects in the lower lobes. IMPRESSION: Low probability for pulmonary embolism. * 04/02/2024; echo;Definity contrast administered improved wall motion interpretation. 2. Left ventricular chamber dimension is normal. 3. Left ventricular systolic function is normal, estimated at 65-70%. 4. The left ventricular diastolic function is grade I diastolic dysfunction. 5. E/e' 7 is not elevated. 6. Left atrial chamber dimension is mildly enlarged. * 04/01/2024 CTA ; There is mild scarring at the lung apices. There is a 3 mm nodule in right upper lobe, likely benign. There is mild atelectasis bilaterally. There is mucous plugging in the lower lobes. No pleural effusion. The heart size is normal. No pericardial effusion. There are coronary artery calcifications. There is no pericardial effusion. There is no pulmonary embolus. There is severe cervical and thoracic spondylosis. IMPRESSION: No pulmonary embolus. * He had negative MRSA swab, viral swabs for influenza A/B, RSV, SARS-CoV-2. Review of Systems Review of Systems: All systems reviewed & are unremarkable except as noted in HPI and below (HPI) Exam Narrative: General: Pt is alert awake and in no distress Lungs/Chest: Trachea central nol wheezing, Improved overall air movement, no wheezing Cardiac: RRR. Normal S1 S2. No murmurs Circulation: Pedal pulses are intact and symmetrical. Abdomen: Decreased bowel sounds. Obese. Soft. NT. ND. Extremities: No clubbing, cyanosis or edema. Warm : Garcia in place Neurologic: AO x3 , follows commands all 4 extremities. PERRL. Decreased range of motion of bilateral upper and lower extremity Const: General: in distress and uncomfortable Other: , male, ill-appearing, significant respiratory distress HENMT: Face/Nose/Sinus: Normal nares present Mouth: Yes dry mucous membranes Eyes: General: appearance normal, both eyes and all related structures Sclera: sclerae normal Pupils: Equal, round and reactive pupils present EOM: EOMs intact bilaterally Resp: Other: No crackles or rhonchi. Cardio: Rate: tachycardic Rhythm: regular rhythm Other: S1-S2 present without murmur, rub, ectopy GI: Other: Abdomen soft, nondistended, nontender. Normoactive bowel sounds in all quadrants. Skin: General skin exam: normal color and no rashes or lesions noted Wou nds: no wounds Neuro: Cranial nerves: Yes Equal, round and reactive pupils present Speech: normal speech Sensory Exam: normal sensation Other: A&O x4. Extrem: General: normal to inspection Psych: Mental Status: mental status grossly normal Affect: normal affect Other: Good insight and judgment, pleasant Objective Data Vital Signs Vital Signs: Vital Signs - 24 hr 08/01/24 11:18 08/01/24 11:32 08/01/24 12:00 Temperature Pulse Rate 123 H 127 H Respiratory Rate Blood Pressure Pulse Oximetry 95 Oxygen Delivery High Flow Therapy with Na Oxygen Flow Rate 30 Fraction of Inspired Oxygen 30 08/01/24 12:00 08/01/24 12:00 08/01/24 14:00 Temperature 100.4 F H 98.3 F Pulse Rate 112 H 108 H 123 H Respiratory Rate 16 19 Blood Pressure 188/97 H 136/68 Pulse Oximetry 96 92 Oxygen Delivery Oxygen Flow Rate Fraction of Inspired Oxygen 08/01/24 14:00 08/01/24 16:00 08/01/24 16:00 Temperature 97.6 F Pulse Rate 121 H 121 H Respiratory Rate 16 Blood Pressure 141/77 H Pulse Oximetry 93 97 Oxygen Delivery High Flow Therapy with Na Oxygen Flow Rate 30 Fraction of Inspired Oxygen 30 08/01/24 16:00 08/01/24 19:50 08/01/24 20:00 Temperature 99.3 F Pulse Rate 125 H 127 H 127 H Respiratory Rate 22 H 22 H Blood Pressure 142/72 H Pulse Oximetry 93 93 Oxygen Delivery High Flow Therapy with Na Oxygen Flow Rate 30 Fraction of Inspired Oxygen 30 08/01/24 20:00 08/01/24 20:27 08/01/24 20:27 Temperature Pulse Rate 117 H 127 H Respiratory Rate 20 Blood Pressure Pulse Oximetry 94 Oxygen Delivery High Flow Therapy with Na Oxygen Flow Rate 30 Fraction of Inspired Oxygen 30 08/01/24 20:38 08/01/24 21:50 08/01/24 23:52 Temperature 99.7 F H Pulse Rate 128 H 127 H 126 H Respiratory Rate 20 23 H Blood Pressure 169/77 H Pulse Oximetry 96 Oxygen Delivery Oxygen Flow Rate Fraction of Inspired Oxygen 08/01/24 23:54 08/01/24 23:58 08/02/24 02:14 Temperature Pulse Rate 126 H 126 H Respiratory Rate 23 H Blood Pressure Pulse Oximetry 96 94 Oxygen Delivery CPAP Room Air Oxygen Flow Rate 3 Fraction of Inspired Oxygen 21 08/02/24 04:00 08/02/24 04:00 08/02/24 04:44 Temperature 98.7 F Pulse Rate 115 H 118 H 118 H Respiratory Rate 22 H 22 H Blood Pressure 165/79 H Pulse Oximetry 95 97 Oxygen Delivery Room Air Oxygen Flow Rate Fraction of Inspired Oxygen 08/02/24 07:49 08/02/24 08:00 08/02/24 09:28 Temperature 98.4 F Pulse Rate 118 H 116 H 113 H Respiratory Rate 22 H Blood Pressure 158/86 H Pulse Oximetry 96 Oxygen Delivery Oxygen Flow Rate Fraction of Inspired Oxygen 08/02/24 10:18 Temperature Pulse Rate Respiratory Rate Blood Pressure Pulse Oximetry 93 Oxygen Delivery Room Air Oxygen Flow Rate Fraction of Inspired Oxygen Intake/Output Intake/Output: Intake & Output 07/30/24 07/31/24 08/01/24 08/02/24 23:59 23:59 23:59 23:59 Intake Total 3054.8 2226.7 219.9 50 Output Total 1550 4150 1250 400 Balance 1504.8 -1923.3 -1030.1 -350 Meds/Results Medications: Active Medications Generic Name Dose Route Start Last Admin Trade Name Freq PRN Reason Stop Dose Admin Acetaminophen 650 mg 07/25/24 19:51 08/01/24 04:07 Acetaminophen Elixir 325 Mg/10.15 Ml Udc PO 650 mg Q6H PRN Administration Mild Pain (1-3) or Fever Albuterol/Ipratropium 3 ml 07/31/24 10:36 Ipratropium 0.5 Mg/Albuterol Sulfate 2.5 Mg Ampul.Neb 3 Ml INHALATION Q6HRT PRN Wheezing Alprazolam 1 mg 08/01/24 08:30 Alprazolam (*Crx) 0.5 Mg Tablet PO TID PRN Anxiety Atorvastatin Calcium 40 mg 07/27/24 09:00 08/02/24 09:27 Atorvastatin 40 Mg Tablet PO 40 mg DAILY JOSEMANUEL Administration Dextrose 12.5 gm 07/27/24 12:28 Dextrose 50% 25 Gm/50 Ml Syringe IV PUSH PRN PRN Hypoglycemia Protocol Enoxaparin Sodium 40 mg 07/26/24 09:00 08/02/24 09:28 Enoxaparin 40 Mg/0.4 Ml Syringe SUB-Q 40 mg DAILY JOSEMANUEL Administration Fluticasone/Umeclidinium/Vilanterol 1 puff 08/01/24 08:00 08/02/24 10:17 Fluticasone/Umeclidin/Vilanter 100-62.5-25 Mcg Ellipta INHALATION 1 puff DAILYRT JOSEMANUEL Administration Glucagon 1 mg 07/27/24 12:28 Glucagon For Inj 1 Mg Vial IM PRN PRN Hypoglycemia Protocol Glucose 15 gm 07/27/24 12:28 Glucose Oral Gel 15 Gm Of Glucse In 37.5 Gm Tube PO PRN PRN Hypoglycemia Protocol Hydralazine HCl 10 mg 07/25/24 19:41 08/01/24 13:28 Hydralazine Hcl 20 Mg/Ml Vial IV PUSH 10 mg Q8H PRN Administration BP greater than 180/90 Hydrochlorothiazide 12.5 mg 08/02/24 09:00 08/02/24 09:27 Hydrochlorothiazide 12.5 Mg Capsule PO 12.5 mg QAM JOSEMANUEL Administration Dextrose 1,000 mls @ 100 mls/hr 07/27/24 12:28 Dextrose 5% 1,000 Ml IVPB PRN PRN Hypoglycemia Protocol Cefepime HCl 2 gm in 50 mls @ 100 mls/hr 07/30/24 15:00 08/02/24 05:42 Maxipime 2 Gm/Ns 50 Ml IVPB 08/05/24 23:59 100 mls/hr Q12H JOSEMANULE Administration Insulin Aspart 3 - 6 units 08/02/24 00:00 08/02/24 06:40 Insulin Aspart (*Bkc) 100 Units/Ml SUB-Q Not Given Q6HR [facility] Protocol Labetalol HCl 20 mg 07/31/24 10:33 08/01/24 11:32 Labetalol Hcl Inj 100 Mg/20 Ml Vial IV PUSH 20 mg Q4H PRN Administration SBP > 160 and HR> 60 -1st choice Loratadine 10 mg 07/26/24 09:51 08/02/24 09:27 Loratadine 10 Mg Tablet FEED TUBE 10 mg QAM JOSEMANUEL Administration Metoprolol Tartrate 25 mg 08/01/24 09:15 08/02/24 09:28 Metoprolol Tartrate 25 Mg Tablet PO 25 mg Q12HR JOSEMANUEL Administration Montelukast Sodium 10 mg 07/26/24 21:00 08/01/24 21:34 Montelukast Sodium 10 Mg Tablet PO Not Given QHS JOSEMANUEL Pantoprazole Sodium 40 mg 08/01/24 09:00 08/02/24 09:28 Pantoprazole 40 Mg Tablet PO 40 mg QAM JOSEMANUEL Administration Sodium Chloride 20 ml 07/26/24 10:36 Central Line Flush IV PUSH PRN PRN after blood draws Sodium Chloride 10 ml 07/26/24 10:36 Central Line Flush IV PUSH PRN PRN with TPN bag changes Sodium Chloride 10 ml 07/26/24 14:00 08/02/24 06:41 Central Line Flush IV PUSH 10 ml Q8HR JOSEMANUEL Administration Radiology Results: ITS Impressions Abdomen X-Ray 07/25/24 16:47 IMPRESSION: 1. Endotracheal tube tip 1 cm above the jose. 2. No acute cardiopulmonary disease. 3. Nasogastric tube extends into the stomach with distal tip projecting near the level of the gastroesophageal junction. Unclear with only AP projections tube extends back into the gastroesophageal junction were positioned more anteriorly in the body but superimposed over the gastroesophageal junction. Consider obtaining an oblique or crosstable lateral view for more definitive de termination. Renal Ultrasound 07/27/24 14:10 IMPRESSION: 1. Normal kidneys without hydronephrosis. Chest CT 07/30/24 13:27 IMPRESSION: 1. Mild airspace opacities in right upper lobe, consistent with atelectasis versus pneumonia. 2. Airspace opacities in the lower lungs with volume loss, left worse than right, likely atelectasis. Chest X-Ray 08/01/24 06:20 Impression: Discoid left basilar atelectasis or scarring, otherwise clear lungs. Left-sided PICC line. Labs Labs: Laboratory Results - last 24 hr 08/01/24 08/01/24 08/01/24 04:11 11:12 15:46 WBC RBC Hgb Hct MCV MCH MCHC RDW Plt Count MPV Immature Gran % (Auto) Neut % (Auto) Lymph % (Auto) [place] % (Auto) Eos % (Auto) Baso % (Auto) Lymph # (Auto) [place] # (Auto) Eos # (Auto) Baso # (Auto) Abs Immat Gran (auto) Absolute Neuts (auto) Absolute Nucleated RBC Total Counted Neutrophils % (Manual) Band Neutrophils % Lymphocytes % (Manual) Monocytes % (Manual) Nucleated RBC % Abs Neuts (Manual) Abs Lymphs (Manual) Abs Monocytes (Manual) Hypersegmented Neuts Atypical Lymphocytes Smudge Cells Platelet Estimate Schistocytes Expiratory Pressure Claims Correspondence Clerk CPAP 12 Sodium Potassium Chloride Carbon Dioxide Anion Gap BUN Creatinine Estim Creat Clear Calc Estimated GFR Glucose POC Capillary Glucose 161 H 126 H Calcium Phosphorus Magnesium Total Bilirubin AST ALT Alkaline Phosphatase Total Protein Albumin 08/01/24 08/02/24 20:08 05:40 WBC 23.9 H RBC 4.53 L Hgb 14.3 Hct 42.8 MCV 94.5 MCH 31.6 MCHC 33.4 RDW 13.2 Plt Count 331 MPV 9.8 Immature Gran % (Auto) Not Reportable Neut % (Auto) Not Reportable Lymph % (Auto) Not Reportable [place] % (Auto) Not Reportable Eos % (Auto) Not Reportable Baso % (Auto) Not Reportable Lymph # (Auto) Not Reportable [place] # (Auto) Not Reportable Eos # (Auto) Not Reportable Baso # (Auto) Not Reportable Abs Immat Gran (auto) Not Reportable Absolute Neuts (auto) Not Reportable Absolute Nucleated RBC Not Reportable Total Counted 100 Neutrophils % (Manual) 69 Band Neutrophils % 1 Lymphocytes % (Manual) 22 Monocytes % (Manual) 7 Nucleated RBC % Not Reportable Abs Neuts (Manual) 16.73 H Abs Lymphs (Manual) 5.25 H Abs Monocytes (Manual) 1.67 H Hypersegmented Neuts Present Atypical Lymphocytes Present Smudge Cells Present Platelet Estimate Adequate Schistocytes None seen Expiratory Pressure CPAP Sodium 142 Potassium 3.8 Chloride 108 H Carbon Dioxide 18 L Anion Gap 16 H BUN 36 H Creatinine 0.99 Estim Creat Clear Calc 67 Estimated GFR > 60 Glucose 113 H POC Capillary Glucose 120 H Calcium 8.8 Phosphorus 2.7 Magnesium 2.7 H Total Bilirubin 1.0 AST 39 ALT 63 H Alkaline Phosphatase 125 Total Protein 7.0 Albumin 3.5 Quality VTE Prophylaxis VTE prophylaxis: pharmacologic ordered
--- NOTE | 2024-08-02 10:35 | PM.PNPUL ---
Progress Note: A&P Assessment and Plan (1) Status asthmaticus: Code(s): J45.902 - Unspecified asthma with status asthmaticus Status: Acute Assessment and Plan: This 68-year-old man, with normal pulmonary function testing measured 4 months ago, had had frequent coughing and wheezing, with three previous hospitalizations for obstructive airway disease over the last few months. He presented with a several-day history of progressively increasing shortness of breath and coughing. The patient?s clinical history of obstructive airway disease, combined with diagnostic studies showing eosinophilia and significant improvement with oral steroid regimens following each hospitalization, suggests uncontrolled eosinophilic asthma. COVID, influenza, RSV negative RT PCR study on 07/25/2024. The day of admission patient was exposed to inhalation of dust while he was doing yard work. The current presentation is typical for status asthmaticus, as the patient exhibited respiratory alkalosis, did not respond to bronchodilators administered in the ER, and progressed to metabolic and respiratory acidosis. Following intubation, the patient was fully sedated and paralyzed due to difficulties encountered by the nurse outreach case manager in ventilating him. Yesterday, a review of respiratory mechanics while the patient was passively ventilated showed a total respiratory resistance of 20 cm/L/sec, which is mildly elevated, and an expiratory time constant of 0.64 seconds, which is in the normal range. There was no auto PEEP. His chest CT shows mild atelectasis at the bases posteriorly and small pleural effusions, with no evidence of lower respiratory tract infection. 07/27/2024: Sputum Gram stain no epithelial cells, few Gram-positive cocci, growth of normal shefali. 07/29/24: Over the past 24 hours, the patient's respiratory status has remained stable while being fully sedated and paralyzed on mechanical ventilation. The patient did not successfully complete the weaning trial yesterday. This morning, while still sedated and paralyzed on mechanical ventilation, respiratory mechanics indicated an inspiratory resistance of 14, static compliance of 36, and an expiratory time constant of 0.53, with a peak inspiratory pressure of 22 while receiving a tidal volume of 450 mL and 8 cm of PEEP. These values are essentially normal. The physical examination revealed no wheezing. A chest X-ray showed a possible left lower lobe infiltrate or small effusion. Agitation appears to be the limiting factor for weaning. Considering the significant improvement in respiratory mechanics and the absence of wheezing on physical examination, the IV steroid dose has been reduced to once daily. A sputum culture will be ordered to investigate the possibility of left lower lobe pneumonia. The patient is not currently on antibiotics. The case was discussed with the nurse outreach case manager, and another weaning trial is planned for today. 07/30/24: patient remains sedated with propofol, Precedex and p.r.n. Versed. On turning down the propofol and Precedex the patient was able to follow simple commands but after 10 minutes became agitated, tachypneic with desaturations. This has been the pattern for him and he has been unsuccessful at tolerating a spontaneous breathing trial on lower sedation. When he was sedated he has no wheezing and low peak airway pressures. Plan: Recommend decreasing Solu-Medrol to 30 mg IV q.day, today is day 6 of systemic steroids. Continue DuoNebs q.6 hours. I will discontinue trilogy as he is high dose beta agonist and muscarinic antagonist with the DuoNebs and he is on systemic steroids. Continue montelukast 10. Chest x-ray with possible left lower lobe infiltrate and agree with CT scan to fully assess for possible pneumonia. Procalcitonin is 0.2. Repeat sputum Gram stain from 07/29/2024 with rare epithelial cells, rare white blood cells and a few mixed bacterial shefali. Cultures pending. When the patient is sedated he has no wheezing and his peak airway pressures are low indicating the absence of bronchospasm. I suspect his asthma and possible COPD have been treated adequately with 6 days of steroids and bronchodilators. It is unlikely that the patient will be able to tolerate decreasing his sedation for an acceptable spontaneous breathing trial and will likely need to decrease his sedation and proceed straight to extubation. Later in the day patient had a CT scan of the chest demonstrating minimal right upper lobe infiltrate, minimal left lower lobe greater than right lower lobe basilar infiltrate with no focal consolidations or evidence of emphysema. Empirically started on vancomycin and cefepime for possible pneumonia with fever, increased secretions and these minimal infiltrates. 07/31/2024: Patient remains intubated and sedated with fentanyl 200, propofol 50 and Precedex 1.5. he is on tidal volume of 450 with peak airway pressure is 20 and 60% with a PEEP of 8. ABG 7.45/38/92. White blood cell count 18.9, creatinine 0.75. He is afebrile. Plan: Patient on Solu-Medrol 30 mg IV q.day, day 7 of systemic steroids. DuoNebs q.6 hours. Montelukast 10. I will add budesonide 500 mcg b.i.d. and plan to decrease Solu-Medrol to 20 q.day starting 08/01/2024. agree with vancomycin and cefepime for possible pneumonia, both day 2. Agree with plan to decrease his sedation and once he can follow simple commands proceed straight to extubation as he has been unable to tolerate being on lower dose of sedation for a spontaneous breathing trial. 08/01/2024: Patient remains extubated. He is still on low-dose Precedex. He does know his name and is place but is confused. Follow simple commands. Denies any respiratory distress. Currently he is on Airvo 40 L and 40% FiO2 saturations 98%. White blood cell count 24.7. Creatinine 0.89. Patient had a fever. Chest x-ray shows minimal atelectasis in the left base with otherwise clear lungs. ABG on CPAP 12 with 35% which he tolerated last night 7. Plan: Patient extubated and in no respiratory distress. His albuterol and ipratropium nebulizers are on hold because of his tachycardia. He is on nebulized budesonide. He received Solu-Medrol 20 mg IV this morning, day 8 of steroids. Continue montelukast 10. Remains on cefepime and vancomycin day 3. 08/02/2024: Patient transferred out of the ICU. He is in no respiratory distress on room air with saturations 95%. He tells me his name, [facility] and 2024 but does not know date or month. Knows [facility] is the [facility] follow simple commands. States he is breathing normally. Denies pain. Remains febrile. White blood cell count 23.9. Creatinine 0.99. To have a Swallow study today. no wheezing on exam. Plan: Patient without wheezing on trelegy 100. I will discontinue nebulized budesonide. Continue montelukast 10. Remains on cefepime and vancomycin day 4. He remains febrile. I do not think he has a respiratory condition that is causing his fever and recommend looking for alternative etiologies of his fever. Discussed with in the room and Dr. Guerrier (2) Obstructive sleep apnea: Code(s): G47.33 - Obstructive sleep apnea (adult) (pediatric) Status: Acute Assessment and Plan: ENT ordered repeat split night study Dec 2022= AHI 8.4, karen 86%, optimal pressure 12 cm. 07/04/2024: outpatient pulmonary office visit Plan: He has JEISON, has been on PAP for years, had a repeat study Fall 2022 ordered by ENT office, would prefer to come here for sleep and breathing issues. He has a CPAP machine, he needs filters, needs new reservoir, tubing, masks. I have no download to review today. 07/30/2024: currently patient is intubated for his asthma exacerbation. 07/31/24: Once patient is Successfully extubated will place on CPAP 12 at night. will attempt to obtain download from his DME company which we think is [facility]. 08/01/2024: Patient tolerated hospital CPAP 12 with 35% FiO2. Plan: Spoke with the she will attempt to bring the patient's home CPAP [address] place him on his home machine [facility] We contacted [facility] his DME and he has had no recent contact with them and they have no recent downloads. 08/02/24: Patient was not able to tolerate his home unit last night. Plan: Patient's mental status and anxiety or prevented him from using his home unit. Will try again tonight. (3) Urticaria: Code(s): L50.9 - Urticaria, unspecified Status: Acute Assessment and Plan: seen by Allergy and immunology on 04/17/2024 For hives for 1 year: Plan was to start cetirizine 10 mg twice a day, famotidine 40 mg twice a day and montelukast 10 mg q.h.s.. 07/30/24: No hives on Solu-Medrol 30 mg q.a.m., montelukast 10, Claritin 10 q.day. will follow. 07/31/2024: No hives on Solu-Medrol 20, montelukast 10 and Claritin 10. 08/01/24: No hives on montelukast 10, Solu-Medrol 20 this morning and Claritin 10. Will follow. 08/02/24: Currently patient off systemic steroids and on montelukast 10 and Claritin 10 with no hives. Subjective Date/time seen: 08/02/24 10:35 Interval history: New Consult date: 07/26/24 Chief complaint: COPD exacerbation Narrative: This is a consultation for a patient with respiratory failure who is currently intubated and fully sedated on mechanical ventilation. This report is based on information obtained from the patient's electronic chart and from the patient's , who was at the bedside. Reportedly, the patient was diagnosed with asthma, and this is the fourth hospitalization for shortness of breath and cough. According to his , the patient's respiratory problems began last August following a COVID-19 infection. In December of last year, while camping in [place], the patient developed a cough with progressively worsening shortness of breath. According to his , he was treated for obstructive airway disease. Since then, the patient has been hospitalized with similar symptoms on two more occasions: once in March at [facility] and again at [facility], where he stayed for 4 to 5 days. His diagnosis was COPD versus asthma, and the patient had been on a Trelegy inhaler and short-acting bronchodilators. After each hospitalization, he received an oral steroid regimen, which led to significant improvement for weeks, but his cough would typically return weeks after stopping the steroids. This hospitalization was prompted by a cough that became progressively worse and shortness of breath since last Tuesday. He had no other respiratory symptoms such as fever, chest pain, orthopnea, or lower extremity edema. Upon evaluation in the emergency room, initial arterial blood gases showed respiratory alkalosis. The patient was treated with nebulized short-acting bronchodilators and BiPAP support. According to ER reports, the patient became somnolent and appeared tired, and because of worsening arterial blood gases, he was intubated. Repeat arterial blood gases in the emergency room showed rising pCO2 and the development of a metabolic component, with a pH of 7.21 and pCO2 of 54 mmHg, consistent with combined respiratory and metabolic acidosis. The patient was transferred to the intensive care unit, where he is currently fully sedated and paralyzed on mechanical ventilation, receiving a tidal volume of 450 mL, total respirations of 18 (all passive), PEEP of 5 cm H2O, and FiO2 of 40%. His chest CT showed mild basal atelectasis and very small pleural effusions bilaterally. Currently, the patient is being treated for obstructive airway disease with IV steroids and nebulized short-acting bronchodilators. His eosinophil count was elevated to over 1800, and previous CBCs showed that eosinophils were similarly elevated on at least three occasions since 2021. A pulmonary function test in April of last year showed essentially normal results. 07/27/24: Patient remains intubated fully sedated and paralyzed on same ventilator settings. 07/28/24: Patient was seen early the morning when his sedative medications were discontinued and the patient was about to go on weaning trial. No new respiratory events over the last 24 hours while the patient was still on sedative paralyzing medications. He has been hemodynamically stable and has been afebrile. 07/29/24: Patient remains sedated on mechanical ventilation. Reportedly failed weaning trial yesterday. Afebrile while on tidal volume 450 peep of 8 and FiO2 45%. 07/30/24: patient remains sedated with propofol, Precedex and p.r.n. Versed. On turning down the propofol and Precedex the patient was able to follow simple commands but after 10 minutes became agitated, tachypneic with desaturations. This has been the pattern for him and he has been unsuccessful at tolerating a spontaneous breathing trial on lower sedation. When he was sedated he has no wheezing and low peak airway pressures. Later in the day patient had a CT scan of the chest demonstrating minimal right upper lobe infiltrate, minimal left lower lobe greater than right lower lobe basilar infiltrate with no focal consolidations or evidence of emphysema. Empirically started on vancomycin and cefepime for possible pneumonia with fever, increased secretions and these minimal infiltrates. 07/31/2024: Patient remains intubated and sedated with fentanyl 200, propofol 50 and Precedex 1.5. he is on tidal volume of 450 with peak airway pressure is 20 and 60% with a PEEP of 8. ABG 7.45/38/92. White blood cell count 18.9, creatinine 0.75. He is afebrile. later in the day the patient was extubated and placed on Airvo 40 L and 40% FiO2. 08/01/2024: Patient remains extubated. He is still on low-dose Precedex. He does know his name and is place but is confused. Follow simple commands. Denies any respiratory distress. Currently he is on Airvo 40 L and 40% FiO2 saturations 98%. White blood cell count 24.7. Creatinine 0.89. Patient had a fever. Chest x-ray shows minimal atelectasis in the left base with otherwise clear lungs. ABG on CPAP 12 with 35% which he tolerated last night 7.. 08/02/2024: Patient transferred out of the ICU. He is in no respiratory distress on room air with saturations 95%. He tells me his name, [facility] and 2024 but does not know date or month. Knows [facility] is the [facility] follow simple commands. States he is breathing normally. Denies pain. Remains febrile. White blood cell count 23.9. Creatinine 0.99. To have a Swallow study today. no wheezing on exam. DATA: 07/30/24: EXAMINATION:CT diagnostic chest wo con DATE: 07/30/2024 12:23 INDICATION: Acute respiratory failure. TECHNIQUE: Computed tomography (CT) of the chest was performed without intravenous contrast. Automated exposure control and iterative reconstruction technique were employed. The dose-length product (DLP) was 532.14 mGy-cm. COMPARISON: Chest CT 07/25/2024 FINDINGS: There are mild airspace opacities in right upper lobe. There are airspace opacities with volume loss involving the lower lobes, left worse than right. There is a 4 mm nodule in right upper lobe, likely benign. There is a trace left pleural effusion. The heart size is normal. There are coronary artery calcifications. No pericardial effusion. There is an endotracheal tube tip is in expected position. The nasogastric tube tip is in the stomach. A left upper extremity peripherally inserted central venous catheter (PICC) is seen with tip in the right atrium. There is a 4 mm stone in left kidney. There is severe cervical spondylosis and mild thoracic spondylosis. IMPRESSION: 1. Mild airspace opacities in right upper lobe, consistent with atelectasis versus pneumonia. 2. Airspace opacities in the lower lungs with volume loss, left worse than right, likely atelectasis. 07/25/2024: CT diagnostic chest wo con Ordering provider: Maggie Morales APRN History: 68 years Male with . hypoxic . Comparison: None. Technique: CT chest without IV contrast. Radiation reduction technique utilized.The dose-length product was 390.57 mGy-cm. FINDINGS: VISUALIZED THORACIC INLET: Normal. Endotracheal tube is seen in the trachea with the tip at the jose. Nasogastric tube is seen with the tip in the distal stomach. MEDIASTINUM: Aorta/coronary arteries: Mild atheromatous disease. Heart/other: The heart is not enlarged. Lymph nodes: No mediastinal or hilar adenopathy. 1 cm paratracheal lymph node is seen. Precarinal lymph node is seen measuring 1.2 cm. Other smaller lymph nodes are seen LUNGS: Bilateral basal atelectatic changes with trace of effusion more on the right side. No pulmonary nodules or masses. No pneumothorax. VISUALIZED UPPER ABDOMEN: 5 mm stone in the left kidney upper pole. Otherwise, the visualized upper abdomen is normal. MUSCULOSKELETAL: Soft tissues: The superficial soft tissues are normal. Bones: Age appropriate degenerative changes of the spine. IMPRESSION: 1. Minimal bilateral basal atelectasis with minimal effusion. 2. Endotracheal tube with the tip at the jose. Retraction by 2 to 3 cm is advised. 3. Left kidney stone. * 04/04/2024; CXR;INDICATION: Chronic shortness of breath. TECHNIQUE: Frontal and lateral views of the chest were obtained. COMPARISON: Chest view 04/01/2024, chest CT 04/02/2024; FINDINGS: There is mild atelectasis at the lung bases. No pleural effusion or pneumothorax. The heart size is normal. IMPRESSION: 1. Mild atelectasis at the lung bases. * 04/04/2024 urine drug screen; negative for opiates, methadone, barbiturates, phencyclidine, amphetamine, benzodiazepines, cocaine, cannabinoids. * 04/03/2024; alpha-1 anti trypsin phenotype MM, normal. * 04/02/24 extended viral respiratory pathogen panel; adenovirus, rhinovirus/enterovirus, influenza A subtypes H1H3, influenza B, human metapneumovirus, RSV A/B, human parainfluenza 1/2/3. * 04/04/24; VQ scan: 04/04/2024 13:42 INDICATION: Chronic shortness of breath. TECHNIQUE: 7.9 mCi Xenon-133 was given for ventilation images. 5.4 mCi Tc-99m MAA was administered intravenously for perfusion images. Scintigraphic images of the chest were obtained. COMPARISON: Chest 2 views 04/04/2024, chest CT 04/02/2024; FINDINGS: The ventilation images demonstrate retention in the mid and lower lung zones. The perfusion images demonstrate small defects in the lower lobes. IMPRESSION: Low probability for pulmonary embolism. * 04/02/2024; echo;Definity contrast administered improved wall motion interpretation. 2. Left ventricular chamber dimension is normal. 3. Left ventricular systolic function is normal, estimated at 65-70%. 4. The left ventricular diastolic function is grade I diastolic dysfunction. 5. E/e' 7 is not elevated. 6. Left atrial chamber dimension is mildly enlarged. * 04/01/2024 CTA ; There is mild scarring at the lung apices. There is a 3 mm nodule in right upper lobe, likely benign. There is mild atelectasis bilaterally. There is mucous plugging in the lower lobes. No pleural effusion. The heart size is normal. No pericardial effusion. There are coronary artery calcifications. There is no pericardial effusion. There is no pulmonary embolus. There is severe cervical and thoracic spondylosis. IMPRESSION: No pulmonary embolus. * He had negative MRSA swab, viral swabs for influenza A/B, RSV, SARS-CoV-2. Review of Systems Constitutional: Constitutional: Reports no additional constitutional complaints Eyes: Eyes: Reports no additional eye complaints ENT: Reports system reviewed and no additional complaints, except as documented Cardiovascular: Cardiovascular: Reports no additional cardiovascular complaints Respiratory: Respiratory: Reports no additional respiratory complaints Gastrointestinal: Gastrointestinal: Reports no additional gastrointestinal complaints Musculoskeletal: Musculoskeletal: Reports no additional musculoskeletal complaints Neurologic: Reports system reviewed and no additional complaints, except as documented Psychiatric: Psychiatric: Reports no additional psychiatric complaints Endocrine: Endocrine: Reports no additional endocrine complaints Hematologic/Lymphatic: Hematologic/Lymphatic: Reports no additional hematologic/lymphatic complaints Allergic/Immunologic: Allergic/Immunologic: Reports no additional allergic/immunologic complaints Exam Const: General: healthy appearing Orientation/consciousness: oriented to person, oriented to place and oriented to time Other: At the end of the spontaneous breathing trial he was agitated and tachypneic. HENMT: Head: normal to inspection Ears: hearing grossly normal bilaterally Eyes: General: appearance normal, both eyes and all related structures Neck: Neck: normal visual inspection Chest: Chest palpation & inspection: normal inspection of the chest Resp: Effort & Inspection: normal respiratory effort and able to speak in complete sentences Auscultation: no crackles, no rales, no rhonchi, no wheezes and lung sounds not diminished Cardio: Jugular venous distension: no JVD GI: Inspection: normal to inspection Skin: General skin exam: normal color Neuro: General: oriented to person, oriented to place and oriented to time Other: sedated Extrem: General: normal to inspection Psych: Appearance: grossly normal Objective Data Vital Signs Vital Signs: Vital Signs - 24 hr 08/01/24 11:18 08/01/24 11:32 08/01/24 12:00 Temperature Pulse Rate 123 H 127 H Respiratory Rate Blood Pressure Pulse Oximetry 95 Oxygen Delivery High Flow Therapy with Na Oxygen Flow Rate 30 Fraction of Inspired Oxygen 30 08/01/24 12:00 08/01/24 12:00 08/01/24 14:00 Temperature 38.0 C H 36.8 C Pulse Rate 112 H 108 H 123 H Respiratory Rate 16 19 Blood Pressure 188/97 H 136/68 Pulse Oximetry 96 92 Oxygen Delivery Oxygen Flow Rate Fraction of Inspired Oxygen 08/01/24 14:00 08/01/24 16:00 08/01/24 16:00 Temperature 36.4 C Pulse Rate 121 H 121 H Respiratory Rate 16 Blood Pressure 141/77 H Pulse Oximetry 93 97 Oxygen Delivery High Flow Therapy with Na Oxygen Flow Rate 30 Fraction of Inspired Oxygen 30 08/01/24 16:00 08/01/24 19:50 08/01/24 20:00 Temperature 37.4 C Pulse Rate 125 H 127 H 127 H Respiratory Rate 22 H 22 H Blood Pressure 142/72 H Pulse Oximetry 93 93 Oxygen Delivery High Flow Therapy with Na Oxygen Flow Rate 30 Fraction of Inspired Oxygen 30 08/01/24 20:00 08/01/24 20:27 08/01/24 20:27 Temperature Pulse Rate 117 H 127 H Respiratory Rate 20 Blood Pressure Pulse Oximetry 94 Oxygen Delivery High Flow Therapy with Na Oxygen Flow Rate 30 Fraction of Inspired Oxygen 30 08/01/24 20:38 08/01/24 21:50 08/01/24 23:52 Temperature 37.6 C H Pulse Rate 128 H 127 H 126 H Respiratory Rate 20 23 H Blood Pressure 169/77 H Pulse Oximetry 96 Oxygen Delivery Oxygen Flow Rate Fraction of Inspired Oxygen 08/01/24 23:54 08/01/24 23:58 08/02/24 02:14 Temperature Pulse Rate 126 H 126 H Respiratory Rate 23 H Blood Pressure Pulse Oximetry 96 94 Oxygen Delivery CPAP Room Air Oxygen Flow Rate 3 Fraction of Inspired Oxygen 21 08/02/24 04:00 08/02/24 04:00 08/02/24 04:44 Temperature 37.1 C Pulse Rate 115 H 118 H 118 H Respiratory Rate 22 H 22 H Blood Pressure 165/79 H Pulse Oximetry 95 97 Oxygen Delivery Room Air Oxygen Flow Rate Fraction of Inspired Oxygen 08/02/24 07:49 08/02/24 08:00 08/02/24 09:28 Temperature 36.9 C Pulse Rate 118 H 116 H 113 H Respiratory Rate 22 H Blood Pressure 158/86 H Pulse Oximetry 96 Oxygen Delivery Oxygen Flow Rate Fraction of Inspired Oxygen 08/02/24 10:18 Temperature Pulse Rate Respiratory Rate Blood Pressure Pulse Oximetry 93 Oxygen Delivery Room Air Oxygen Flow Rate Fraction of Inspired Oxygen Intake/Output Intake/Output: Intake & Output 07/30/24 07/31/24 08/01/24 08/02/24 23:59 23:59 23:59 23:59 Intake Total 3054.8 2226.7 219.9 50 Output Total 1550 4150 1250 400 Balance 1504.8 -1923.3 -1030.1 -350 Meds/Results Medications: Active Medications Generic Name Dose Route Start Last Admin Trade Name Freq PRN Reason Stop Dose Admin Acetaminophen 650 mg 07/25/24 19:51 08/01/24 04:07 Acetaminophen Elixir 325 Mg/10.15 Ml Udc PO 650 mg Q6H PRN Administration Mild Pain (1-3) or Fever Albuterol/Ipratropium 3 ml 07/31/24 10:36 Ipratropium 0.5 Mg/Albuterol Sulfate 2.5 Mg Ampul.Neb 3 Ml INHALATION Q6HRT PRN Wheezing Alprazolam 1 mg 08/01/24 08:30 Alprazolam (*Crx) 0.5 Mg Tablet PO TID PRN Anxiety Atorvastatin Calcium 40 mg 07/27/24 09:00 08/02/24 09:27 Atorvastatin 40 Mg Tablet PO 40 mg DAILY JOSEMANUEL Administration Dextrose 12.5 gm 07/27/24 12:28 Dextrose 50% 25 Gm/50 Ml Syringe IV PUSH PRN PRN Hypoglycemia Protocol Enoxaparin Sodium 40 mg 07/26/24 09:00 08/02/24 09:28 Enoxaparin 40 Mg/0.4 Ml Syringe SUB-Q 40 mg DAILY JOSEMANUEL Administration Fluticasone/Umeclidinium/Vilanterol 1 puff 08/01/24 08:00 08/02/24 10:17 Fluticasone/Umeclidin/Vilanter 100-62.5-25 Mcg Ellipta INHALATION 1 puff DAILYRT JOSEMANUEL Administration Glucagon 1 mg 07/27/24 12:28 Glucagon For Inj 1 Mg Vial IM PRN PRN Hypoglycemia Protocol Glucose 15 gm 07/27/24 12:28 Glucose Oral Gel 15 Gm Of Glucse In 37.5 Gm Tube PO PRN PRN Hypoglycemia Protocol Hydralazine HCl 10 mg 07/25/24 19:41 08/01/24 13:28 Hydralazine Hcl 20 Mg/Ml Vial IV PUSH 10 mg Q8H PRN Administration BP greater than 180/90 Hydrochlorothiazide 12.5 mg 08/02/24 09:00 08/02/24 09:27 Hydrochlorothiazide 12.5 Mg Capsule PO 12.5 mg QAM JOSEMANUEL Administration Dextrose 1,000 mls @ 100 mls/hr 07/27/24 12:28 Dextrose 5% 1,000 Ml IVPB PRN PRN Hypoglycemia Protocol Cefepime HCl 2 gm in 50 mls @ 100 mls/hr 07/30/24 15:00 08/02/24 05:42 Maxipime 2 Gm/Ns 50 Ml IVPB 08/05/24 23:59 100 mls/hr Q12H JOSEMANUEL Administration Insulin Aspart 3 - 6 units 08/02/24 00:00 08/02/24 06:40 Insulin Aspart (*Bkc) 100 Units/Ml SUB-Q Not Given Q6HR JOSEMANUEL Protocol Labetalol HCl 20 mg 07/31/24 10:33 08/01/24 11:32 Labetalol Hcl Inj 100 Mg/20 Ml Vial IV PUSH 20 mg Q4H PRN Administration SBP > 160 and HR> 60 -1st choice Loratadine 10 mg 07/26/24 09:51 08/02/24 09:27 Loratadine 10 Mg Tablet FEED TUBE 10 mg QAM JOSEMANUEL Administration Metoprolol Tartrate 25 mg 08/01/24 09:15 08/02/24 09:28 Metoprolol Tartrate 25 Mg Tablet PO 25 mg Q12HR JOSEMANUEL Administration Montelukast Sodium 10 mg 07/26/24 21:00 08/01/24 21:34 Montelukast Sodium 10 Mg Tablet PO Not Given QHS JOSEMANUEL Pantoprazole Sodium 40 mg 08/01/24 09:00 08/02/24 09:28 Pantoprazole 40 Mg Tablet PO 40 mg QAM JOSEMANUEL Administration Sodium Chloride 20 ml 07/26/24 10:36 Central Line Flush IV PUSH PRN PRN after blood draws Sodium Chloride 10 ml 07/26/24 10:36 Central Line Flush IV PUSH PRN PRN with TPN bag changes Sodium Chloride 10 ml 07/26/24 14:00 08/02/24 06:41 Central Line Flush IV PUSH 10 ml Q8HR JOSEMANUEL Administration Radiology Results: ITS Impressions Abdomen X-Ray 07/25/24 16:47 IMPRESSION: 1. Endotracheal tube tip 1 cm above the jose. 2. No acute cardiopulmonary disease. 3. Nasogastric tube extends into the stomach with distal tip projecting near the level of the gastroesophageal junction. Unclear with only AP projections tube extends back into the gastroesophageal junction were positioned more anteriorly in the body but superimposed over the gastroesophageal junction. Consider obtaining an oblique or crosstable lateral view for more definitive determination. Renal Ultrasound 07/27/24 14:10 IMPRESSION: 1. Normal kidneys without hydronephrosis. Chest CT 07/30/24 13:27 IMPRESSION: 1. Mild airspace opacities in right upper lobe, consistent with atelectasis versus pneumonia. 2. Airspace opacities in the lower lungs with volume loss, left worse than right, likely atelectasis. Chest X-Ray 08/01/24 06:20 Impression: Discoid left basilar atelectasis or scarring, otherwise clear lungs. Left-sided PICC line. Labs Labs: Laboratory Results - last 24 hr 08/01/24 08/01/24 08/01/24 04:11 11:12 15:46 WBC RBC Hgb Hct MCV MCH MCHC RDW Plt Count MPV Immature Gran % (Auto) Neut % (Auto) Lymph % (Auto) [place] % (Auto) Eos % (Auto) Baso % (Auto) Lymph # (Auto) [place] # (Auto) Eos # (Auto) Baso # (Auto) Abs Immat Gran (auto) Absolute Neuts (auto) Absolute Nucleated RBC Total Counted Neutrophils % (Manual) Band Neutrophils % Lymphocytes % (Manual) Monocytes % (Manual) Nucleated RBC % Abs Neuts (Manual) Abs Lymphs (Manual) Abs Monocytes (Manual) Hypersegmented Neuts Atypical Lymphocytes Smudge Cells Platelet Estimate Schistocytes Expiratory Pressure [employer] CPAP 12 Sodium Potassium Chloride Carbon Dioxide Anion Gap BUN Creatinine Estim Creat Clear Calc Estimated GFR Glucose POC Capillary Glucose 161 H 126 H Calcium Phosphorus Magnesium Total Bilirubin AST ALT Alkaline Phosphatase Total Protein Albumin 08/01/24 08/02/24 20:08 05:40 WBC 23.9 H RBC 4.53 L Hgb 14.3 Hct 42.8 MCV 94.5 MCH 31.6 MCHC 33.4 RDW 13.2 Plt Count 331 MPV 9.8 Immature Gran % (Auto) Not Reportable Neut % (Auto) Not Reportable Lymph % (Auto) Not Reportable [place] % (Auto) Not Reportable Eos % (Auto) Not Reportable Baso % (Auto) Not Reportable Lymph # (Auto) Not Reportable [place] # (Auto) Not Reportable Eos # (Auto) Not Reportable Baso # (Auto) Not Reportable Abs Immat Gran (auto) Not Reportable Absolute Neuts (auto) Not Reportable Absolute Nucleated RBC Not Reportable Total Counted 100 Neutrophils % (Manual) 69 Band Neutrophils % 1 Lymphocytes % (Manual) 22 Monocytes % (Manual) 7 Nucleated RBC % Not Reportable Abs Neuts (Manual) 16.73 H Abs Lymphs (Manual) 5.25 H Abs Monocytes (Manual) 1.67 H Hypersegmented Neuts Present Atypical Lymphocytes Present Smudge Cells Present Platelet Estimate Adequate Schistocytes None seen Expiratory Pressure CPAP Sodium 142 Potassium 3.8 Chloride 108 H Carbon Dioxide 18 L Anion Gap 16 H BUN 36 H Creatinine 0.99 Estim Creat Clear Calc 67 Estimated GFR > 60 Glucose 113 H POC Capillary Glucose 120 H Calcium 8.8 Phosphorus 2.7 Magnesium 2.7 H Total Bilirubin 1.0 AST 39 ALT 63 H Alkaline Phosphatase 125 Total Protein 7.0 Albumin 3.5
[2024-08-02 11:23] LABS: Glucose Point of Care 170 mg/dl (65-105)
--- NOTE | 2024-08-02 11:31 | PCSTNOTE ---
Please refer to the Modified Barium Swallow Evaluation in the EMR. The patient was seated for a lateral view and presented with 5cc of thin liquid barium via spoon, pudding consistency barium via a spoon, cracker coated with barium pudding via spoon, and uncontrolled thin liquid barium. This was presented via a cup & straw. Oral preparatory and oral phase symptoms: none. Pharyngeal phase symptoms: within functional limits; a possible trace penetration occurred after the swallow of the solid trial but no aspiration was observed. Esophageal stage symptoms: none. Overall, no aspiration occurred. Impressions: Functional swallow swallow ability Recommendation: regular diet with regular liquids; position pt upright for all meals & with med pass No further ST is warranted at this time.
--- NOTE | 2024-08-02 12:56 | PC.NURSE ---
This patient, Jeferson Comer, was transferred to [facility] on 08/02/24 at 1256. Personal belongings sent with patient. Report given to Lizet. Appropriate documentation sent with patient.
--- NOTE | 2024-08-02 13:00 | PC.NURSE ---
This patient, Jeferson Comer, was received from IMU on 08/02/24 at 1300. Patient/family oriented to unit policies and routines. Report received from LUIS White
[2024-08-02] MEDS: LABETALOL HCL INJ 100 MG/20 ML VIAL 20 MG IV PUSH (15:41)
[2024-08-02] MEDS: ALPRAZolam (*CRX) 0.5 MG TABLET 1 MG PO (20:36)
[2024-08-02] MEDS: MONTELUKAST SODIUM 10 MG TABLET PO (20:39)
[2024-08-03] VITALS (8 sets, daily range): BP systolic 158–169; BP diastolic 73–94; PULSE 94–102; RESP 18–22; TEMP 36.6–36.7; O2SAT 93–95
[2024-08-03 01:53] LABS: Adenovirus DNA Not Detected (Not Detected); Chlamydophila pneumoniae Not Detected (Not Detected); Coronavirus 229E Not Detected (Not Detected); Coronavirus HKU1 Not Detected (Not Detected); Coronavirus NL63 Not Detected (Not Detected); Coronavirus OC43 Not Detected (Not Detected); Human Metapneumovirus Not Detected (Not Detected); Human Parainfluenza Virus 1 Not Detected (Not Detected); Human Parainfluenza Virus 2 Not Detected (Not Detected); Human Parainfluenza Virus 3 Not Detected (Not Detected); Human Parainfluenza Virus 4 Not Detected (Not Detected); Human RSV B Not Detected (Not Detected); Influenza A Not Detected (Not Detected); Influenza B Not Detected (Not Detected); Mycoplasma pneumoniae Not Detected (Not Detected); Rhinovirus/Enterovirus Not Detected (Not Detected)
[2024-08-03] MEDS: CEFEPIME 2 GM/NS 50 ML 2 GM/50 ML BAG IVPB ×2 (02:35→16:30)
[2024-08-03] MEDS: CENTRAL LINE FLUSH 10 ML IV PUSH ×3 (06:07→20:44)
[2024-08-03] MEDS: CENTRAL LINE FLUSH 20 ML IV PUSH (06:07)
[2024-08-03 06:37] LABS: Anion Gap 10 mmol/L (4-12); Blood Urea Nitrogen 29 mg/dL (9-20); Calcium 8.1 mg/dL (8.4-10.2); Carbon Dioxide 25 mmol/L (22-30); Chloride 104 mmol/L (98-107); Estimated CRCL calculation 71 ml/min; Estimated Glomerular Filt Rate > 60; Glucose 112 mg/dL (65-110); Magnesium 2.3 mg/dL (1.6-2.3); Potassium 3.1 mmol/L (3.4-5.0); Sodium 139 mmol/L (137-145)
[2024-08-03 06:55] LABS: Hematocrit 40.2 % (42.0-52.0); Hemoglobin 13.3 g/dL (14.0-18.0); Mean Corpuscular HGB Conc 33.1 g/dl (32-36); Mean Corpuscular Hemoglobin 31.1 pg (26-34); Mean Corpuscular Volume 94.1 fl (80-100); Mean Platelet Volume 10.1 fl (7.4-10.4); Platelet Count Result 287 k/mm3 (150-375); Red Blood Count 4.27 M/mm3 (4.6-6.20); White Blood Count 17.7 K/mm3 (4.5-10.0)
[2024-08-03] MEDS: ATORVASTATIN 40 MG TABLET PO (09:02)
[2024-08-03] MEDS: METOPROLOL TARTRATE 25 MG TABLET PO ×2 (09:02→20:44)
[2024-08-03] MEDS: PANTOPRAZOLE 40 MG TABLET PO (09:02)
[2024-08-03] MEDS: POTASSIUM CHLORIDE 20 MEQ PACKET (FOR LIQUID) 40 MEQ PO (09:02)
[2024-08-03] MEDS: hydroCHLOROthiazide 12.5 MG CAPSULE PO (09:02)
[2024-08-03] MEDS: LORATADINE 10 MG TABLET FEED TUBE (09:02)
[2024-08-03] MEDS: ENOXAPARIN 40 MG/0.4 ML SYRINGE SUB-Q (09:03)
--- NOTE | 2024-08-03 11:14 | P.PNPL_ITS ---
Progress Note: A&P Assessment and Plan (1) Status asthmaticus: Code(s): J45.902 - Unspecified asthma with status asthmaticus Status: Acute Assessment and Plan: This 68-year-old man, with normal pulmonary function testing measured 4 months ago, had had frequent coughing and wheezing, with three previous hospitalizations for obstructive airway disease over the last few months. He presented with a several-day history of progressively increasing shortness of breath and coughing. The patient?s clinical history of obstructive airway disease, combined with diagnostic studies showing eosinophilia and significant improvement with oral steroid regimens following each hospitalization, suggests uncontrolled eosinophilic asthma. COVID, influenza, RSV negative RT PCR study on 07/25/2024. The day of admission patient was exposed to inhalation of dust while he was doing yard work. The current presentation is typical for status asthmaticus, as the patient exhibited respiratory alkalosis, did not respond to bronchodilators administered in the ER, and progressed to metabolic and respiratory acidosis. Following intubation, the patient was fully sedated and paralyzed due to difficulties encountered by the shoe repair supervisor in ventilating him. Yesterday, a review of respiratory mechanics while the patient was passively ventilated showed a total respiratory resistance of 20 cm/L/sec, which is mildly elevated, and an expiratory time constant of 0.64 seconds, which is in the normal range. There was no auto PEEP. His chest CT shows mild atelectasis at the bases posteriorly and small pleural effusions, with no evidence of lower respiratory tract infection. 07/27/2024: Sputum Gram stain no epithelial cells, few Gram-positive cocci, growth of normal shefali. 07/29/24: Over the past 24 hours, the patient's respiratory status has remained stable while being fully sedated and paralyzed on mechanical ventilation. The patient did not successfully complete the weaning trial yesterday. This morning, while still sedated and paralyzed on mechanical ventilation, respiratory mechanics indicated an inspiratory resistance of 14, static compliance of 36, and an expiratory time constant of 0.53, with a peak inspiratory pressure of 22 while receiving a tidal volume of 450 mL and 8 cm of PEEP. These values are essentially normal. The physical examination revealed no wheezing. A chest X-ray showed a possible left lower lobe infiltrate or small effusion. Agitation appears to be the limiting factor for weaning. Considering the significant improvement in respiratory mechanics and the absence of wheezing on physical examination, the IV steroid dose has been reduced to once daily. A sputum culture will be ordered to investigate the possibility of left lower lobe pneumonia. The patient is not currently on antibiotics. The case was discussed with the shoe repair supervisor, and another weaning trial is planned for today. 07/30/24: patient remains sedated with propofol, Precedex and p.r.n. Versed. On turning down the propofol and Precedex the patient was able to follow simple commands but after 10 minutes became agitated, tachypneic with desaturations. This has been the pattern for him and he has been unsuccessful at tolerating a spontaneous breathing trial on lower sedation. When he was sedated he has no wheezing and low peak airway pressures. Plan: Recommend decreasing Solu-Medrol to 30 mg IV q.day, today is day 6 of systemic steroids. Continue DuoNebs q.6 hours. I will discontinue trilogy as he is high dose beta agonist and muscarinic antagonist with the DuoNebs and he is on systemic steroids. Continue montelukast 10. Chest x-ray with possible left lower lobe infiltrate and agree with CT scan to fully assess for possible pneumonia. Procalcitonin is 0.2. Repeat sputum Gram stain from 07/29/2024 with rare epithelial cells, rare white blood cells and a few mixed bacterial shefali. Cultures pending. When the patient is sedated he has no wheezing and his peak airway pressures are low indicating the absence of bronchospasm. I suspect his asthma and possible COPD have been treated adequately with 6 days of steroids and bronchodilators. It is unlikely that the patient will be able to tolerate decreasing his sedation for an acceptable spontaneous breathing trial and will likely need to decrease his sedation and proceed straight to extubation. Later in the day patient had a CT scan of the chest demonstrating minimal right upper lobe infiltrate, minimal left lower lobe greater than right lower lobe basilar infiltrate with no focal consolidations or evidence of emphysema. Empirically started on vancomycin and cefepime for possible pneumonia with fever, increased secretions and these minimal infiltrates. 07/31/2024: Patient remains intubated and sedated with fentanyl 200, propofol 50 and Precedex 1.5. he is on tidal volume of 450 with peak airway pressure is 20 and 60% with a PEEP of 8. ABG 7.45/38/92. White blood cell count 18.9, creatinine 0.75. He is afebrile. Plan: Patient on Solu-Medrol 30 mg IV q.day, day 7 of systemic steroids. DuoNebs q.6 hours. Montelukast 10. I will add budesonide 500 mcg b.i.d. and plan to decrease Solu-Medrol to 20 q.day starting 08/01/2024. agree with vancomycin and cefepime for possible pneumonia, both day 2. Agree with plan to decrease his sedation and once he can follow simple commands proceed straight to extubation as he has been unable to tolerate being on lower dose of sedation for a spontaneous breathing trial. 08/01/2024: Patient remains extubated. He is still on low-dose Precedex. He does know his name and is place but is confused. Follow simple commands. Denies any respiratory distress. Currently he is on Airvo 40 L and 40% FiO2 saturations 98%. White blood cell count 24.7. Creatinine 0.89. Patient had a fever. Chest x-ray shows minimal atelectasis in the left base with otherwise clear lungs. ABG on CPAP 12 with 35% which he tolerated last night 7. Plan: Patient extubated and in no respiratory distress. His albuterol and ipratropium nebulizers are on hold because of his tachycardia. He is on nebulized budesonide. He received lsat dose of Solu-Medrol 20 mg IV this morning, day 8 of steroids. Continue montelukast 10. Remains on cefepime and vancomycin day 3. 08/02/2024: Patient transferred out of the ICU. He is in no respiratory distress on room air with saturations 95%. He tells me his name, [facility] and 2024 but does not know date or month. Knows [facility] is the [place] follow simple commands. States he is breathing normally. Denies pain. Remains febrile. White blood cell count 23.9. Creatinine 0.99. To have a Swallow study today. no wheezing on exam. Plan: Patient without wheezing on trelegy 100. I will discontinue nebulized budesonide. Continue montelukast 10. Remains on cefepime and vancomycin day 4. He remains febrile. I do not think he has a respiratory condition that is causing his fever and recommend looking for alternative etiologies of his fever. 08/03/24: Patient is sitting up in a chair. He walked 5 ft to get to the chair. He is on room air with saturations 96%. Overall patient states he is breathing normally. His cough is improved with minimal phlegm, no hemoptysis. Intermittently has sneezing and hiccups. Patient had a fever last night but overall his fever curve is decreased. White blood cell count 17.7, creatinine 0.93. No wheezing on exam. Plan: Patient currently states he is breathing normally and has no wheezing on exam. He is on trelegy 100. Continue montelukast 10 and Claritin 10. Patient is on cefepime day 5 for possible pneumonia. Patient was scheduled to see [facility] on 08/10/2024 for evaluation for a biologic for his eosinophilic asthma. Discussed with Dr. Dowd, will follow with you. (2) Obstructive sleep apnea: Code(s): G47.33 - Obstructive sleep apnea (adult) (pediatric) Status: Acute Assessment and Plan: ENT ordered repeat split night study Dec 2022= AHI 8.4, karen 86%, optimal pressure 12 cm. 07/04/2024: outpatient pulmonary office visit Plan: He has JEISON, has been on PAP for years, had a repeat study Fall 2022 ordered by ENT office, would prefer to come here for sleep and breathing issues. He has a CPAP machine, he needs filters, needs new reservoir, tubing, masks. I have no download to review today. 07/30/2024: currently patient is intubated for his asthma exacerbation. 07/31/24: Once patient is Successfully extubated will place on CPAP 12 at night. will attempt to obtain download from his [employer] company which we think is [facility]. 08/01/2024: Patient tolerated hospital CPAP 12 with 35% FiO2. Plan: Spoke with the she will attempt to bring the patient's home CPAP [address] place him on his home machine with 3 L bleed in tonight. We contacted [facility] his DME and he has had no recent contact with them and they have no recent downloads. 08/02/24: Patient was not able to tolerate his home unit last night. Plan: Patient's mental status and anxiety or prevented him from using his home unit. Will try again tonight. 08/03/24: Last night the helped him with his home CPAP 11 and he wore this for about 1 hour and then felt claustrophobic and requested to be taken off. Plan: Recommended to who helps him to try to wear his CPAP during the day for desensitization and continue to try to use at night. (3) Urticaria: Code(s): L50.9 - Urticaria, unspecified Status: Acute Assessment and Plan: seen by Allergy and immunology on 04/17/2024 For hives for 1 year: Plan was to start cetirizine 10 mg twice a day, famotidine 40 mg twice a day and montelukast 10 mg q.h.s.. 07/30/24: No hives on Solu-Medrol 30 mg q.a.m., montelukast 10, Claritin 10 q.day. will follow. 07/31/2024: No hives on Solu-Medrol 20, montelukast 10 and Claritin 10. 08/01/24: No hives on montelukast 10, last dose of Solu-Medrol 20 this morning and Claritin 10. Will follow. 08/02/24: Currently patient off systemic steroids and on montelukast 10 and Claritin 10 with no hives. 08/03/24: Continue montelukast 10 and Claritin 10. Subjective Date/time seen: 08/03/24 11:14 Interval history: Chief complaint: COPD exacerbation Narrative: This is a consultation for a patient with respiratory failure who is currently intubated and fully sedated on mechanical ventilation. This report is based on information obtained from the patient's electronic chart and from the patient's , who was at the bedside. Reportedly, the patient was diagnosed with asthma, and this is the fourth hospitalization for shortness of breath and cough. According to his , the patient's respiratory problems began last August following a COVID-19 infection. In December of last year, while camping in [place], the patient developed a cough with progressively worsening shortness of breath. According to his , he was treated for obstructive airway disease. Since then, the patient has been hospitalized with similar symptoms on two more occasions: once in March at [facility] and again at [facility], where he stayed for 4 to 5 days. His diagnosis was COPD versus asthma, and the patient had been on a Trelegy inhaler and short-acting bronchodilators. After each hospitalization, he received an oral steroid regimen, which led to significant improvement for weeks, but his cough would typically return weeks after stopping the steroids. This hospitalization was prompted by a cough that became progressively worse and shortness of breath since last Tuesday. He had no other respiratory symptoms such as fever, chest pain, orthopnea, or lower extremity edema. Upon evaluation in the emergency room, initial arterial blood gases showed respiratory alkalosis. The patient was treated with nebulized short-acting bronchodilators and BiPAP support. According to ER reports, the patient became somnolent and appeared tired, and because of worsening arterial blood gases, he was intubated. Repeat arterial blood gases in the emergency room showed rising pCO2 and the development of a metabolic component, with a pH of 7.21 and pCO2 of 54 mmHg, consistent with combined respiratory and metabolic acidosis. The patient was transferred to the intensive care unit, where he is currently fully sedated and paralyzed on mechanical ventilation, receiving a tidal volume of 450 mL, total respirations of 18 (all passive), PEEP of 5 cm H2O, and FiO2 of 40%. His chest CT showed mild basal atelectasis and very small pleural effusions bilaterally. Currently, the patient is being treated for obstructive airway disease with IV steroids and nebulized short-acting bronchodilators. His eosinophil count was elevated to over 1800, and previous CBCs showed that eosinophils were similarly elevated on at least three occasions since 2021. A pulmonary function test in April of last year showed essentially normal results. 07/27/24: Patient remains intubated fully sedated and paralyzed on same ventilator settings. 07/28/24: Patient was seen early the morning when his sedative medications were discontinued and the patient was about to go on weaning trial. No new respiratory events over the last 24 hours while the patient was still on sedative paralyzing medications. He has been hemodynamically stable and has been afebrile. 07/29/24: Patient remains sedated on mechanical ventilation. Reportedly failed weaning trial yesterday. Afebrile while on tidal volume 450 peep of 8 and FiO2 45%. 07/30/24: patient remains sedated with propofol, Precedex and p.r.n. Versed. On turning down the propofol and Precedex the patient was able to follow simple commands but after 10 minutes became agitated, tachypneic with desaturations. This has been the pattern for him and he has been unsuccessful at tolerating a spontaneous breathing trial on lower sedation. When he was sedated he has no wheezing and low peak airway pressures. Later in the day patient had a CT scan of the chest demonstrating minimal right upper lobe infiltrate, minimal left lower lobe greater than right lower lobe basilar infiltrate with no focal consolidations or evidence of emphysema. Empirically started on vancomycin and cefepime for possible pneumonia with fever, increased secretions and these minimal infiltrates. 07/31/2024: Patient remains intubated and sedated with fentanyl 200, propofol 50 and Precedex 1.5. he is on tidal volume of 450 with peak airway pressure is 20 and 60% with a PEEP of 8. ABG 7.45//. White blood cell count 18.9, creatinine 0.75. He is afebrile. later in the day the patient was extubated and placed on Airvo 40 L and 40% FiO2. 08/01/2024: Patient remains extubated. He is still on low-dose Precedex. He does know his name and is place but is confused. Follow simple commands. Denies any respiratory distress. Currently he is on Airvo 40 L and 40% FiO2 saturations 98%. White blood cell count 24.7. Creatinine 0.89. Patient had a fever. Chest x-ray shows minimal atelectasis in the left base with otherwise clear lungs. ABG on CPAP 12 with 35% which he tolerated last night 7.08/02/2024: Patient transferred out of the ICU. He is in no respiratory distress on room air with saturations 95%. He tells me his name, [facility] and 2024 but does not know date or month. Knows [facility] is the [place] follow simple commands. States he is breathing normally. Denies pain. Remains febrile. White blood cell count 23.9. Creatinine 0.99. To have a Swallow study today. no wheezing on exam. Later in the day passed his swallow study with recommendation for regular diet and regular liquids. 08/03/24: Patient is sitting up in a chair. He walked 5 ft to get to the chair. He is on room air with saturations 96%. Overall patient states he is breathing normally. His cough is improved with minimal phlegm, no hemoptysis. Intermittently has sneezing and hiccups. Patient had a fever last night but overall his fever curve is decreased. White blood cell count 17.7, creatinine 0.93. Last night the helped him with his home CPAP 11 and he wore this for about 1 hour and then felt claustrophobic and requested to be taken off. No wheezing on exam. DATA: 07/30/24: EXAMINATION:CT diagnostic chest wo con DATE: 07/30/2024 12:23 INDICATION: Acute respiratory failure. TECHNIQUE: Computed tomography (CT) of the chest was performed without intravenous contrast. Automated exposure control and iterative reconstruction technique were employed. The dose-length product (DLP) was 532.14 mGy-cm. COMPARISON: Chest CT 07/25/2024 FINDINGS: There are mild airspace opacities in right upper lobe. There are airspace opacities with volume loss involving the lower lobes, left worse than right. There is a 4 mm nodule in right upper lobe, likely benign. There is a trace left pleural effusion. The heart size is normal. There are coronary artery calcifications. No pericardial effusion. There is an endotracheal tube tip is in expected position. The nasogastric tube tip is in the stomach. A left upper extremity peripherally inserted central venous catheter (PICC) is seen with tip in the right atrium. There is a 4 mm stone in left kidney. There is severe cervical spondylosis and mild thoracic spondylosis. IMPRESSION: 1. Mild airspace opacities in right upper lobe, consistent with atelectasis versus pneumonia. 2. Airspace opacities in the lower lungs with volume loss, left worse than right, likely atelectasis. 07/25/2024: CT diagnostic chest wo con Ordering provider: Maggie Morales APRN History: 68 years Male with . hypoxic . Comparison: None. Technique: CT chest without IV contrast. Radiation reduction technique utilized.The dose-length product was 390.57 mGy- cm. FINDINGS: VISUALIZED THORACIC INLET: Normal. Endotracheal tube is seen in the trachea with the tip at the jose. Nasogastric tube is seen with the tip in the distal stomach. MEDIASTINUM: Aorta/coronary arteries: Mild atheromatous disease. Heart/other: The heart is not enlarged. Lymph nodes: No mediastinal or hilar adenopathy. 1 cm paratracheal lymph node is seen. Precarinal lymph node is seen measuring 1.2 cm. Other smaller lymph nodes are seen LUNGS: Bilateral basal atelectatic changes with trace of effusion more on the right side. No pulmonary nodules or masses. No pneumothorax. VISUALIZED UPPER ABDOMEN: 5 mm stone in the left kidney upper pole. Otherwise, the visualized upper abdomen is normal. MUSCULOSKELETAL: Soft tissues: The superficial soft tissues are normal. Bones: Age appropriate degenerative changes of the spine. IMPRESSION: 1. Minimal bilateral basal atelectasis with minimal effusion. 2. Endotracheal tube with the tip at the jose. Retraction by 2 to 3 cm is advised. 3. Left kidney stone. * 04/04/2024; CXR;INDICATION: Chronic shortness of breath. TECHNIQUE: Frontal and lateral views of the chest were obtained. COMPARISON: Chest view 04/01/2024, chest CT 04/02/2024; FINDINGS: There is mild atelectasis at the lung bases. No pleural effusion or pneumothorax. The heart size is normal. IMPRESSION: 1. Mild atelectasis at the lung bases. * 04/04/2024 urine drug screen; negative for opiates, methadone, barbiturates, phencyclidine, amphetamine, benzodiazepines, cocaine, cannabinoids. * 04/03/2024; alpha-1 anti trypsin phenotype MM, normal. * 04/02/24 extended viral respiratory pathogen panel; adenovirus, rhinovirus/enterovirus, influenza A subtypes H1H3, influenza B, human metapneumovirus, RSV A/B, human parainfluenza 1/2/3. * 04/04/24; VQ scan: 04/04/2024 13:42 INDICATION: Chronic shortness of breath. TECHNIQUE: 7.9 mCi Xenon-133 was given for ventilation images. 5.4 mCi Tc-99m MAA was administered intravenously for perfusion images. Scintigraphic images of the chest were obtained. COMPARISON: Chest 2 views 04/04/2024, chest CT 04/02/2024; FINDINGS: The ventilation images demonstrate retention in the mid and lower lung zones. The perfusion images demonstrate small defects in the lower lobes. IMPRESSION: Low probability for pulmonary embolism. * 04/02/2024; echo;Definity contrast administered improved wall motion interpretation. 2. Left ventricular chamber dimension is normal. 3. Left ventricular systolic function is normal, estimated at 65-70%. 4. The left ventricular diastolic function is grade I diastolic dysfunction. 5. E/e' 7 is not elevated. 6. Left atrial chamber dimension is mildly enlarged. * 04/01/2024 CTA ; There is mild scarring at the lung apices. There is a 3 mm nodule in right upper lobe, likely benign. There is mild atelectasis bilaterally. There is mucous plugging in the lower lobes. No pleural effusion. The heart size is normal. No pericardial effusion. There are coronary artery calcifications. There is no pericardial effusion. There is no pulmonary embolus. There is severe cervical and thoracic spondylosis. IMPRESSION: No pulmonary embolus. * He had negative MRSA swab, viral swabs for influenza A/B, RSV, SARS-CoV-2. Review of Systems Review of Systems: All systems reviewed & are unremarkable except as noted in HPI and below ROS unobtainable: Yes unobtainable due to endotracheal tube, unobtainable due to medical condition and unobtainable due to mental status Constitutional: Constitutional: Reports no additional constitutional complaints Eyes: Eyes: Reports no additional eye complaints ENT: Reports system reviewed and no additional complaints, except as documented Cardiovascular: Cardiovascular: Reports no additional cardiovascular complaints Respiratory: Respiratory: Reports no additional respiratory complaints Gastrointestinal: Gastrointestinal: Reports no additional gastrointestinal complaints Musculoskeletal: Musculoskeletal: Reports no additional musculoskeletal complaints Neurologic: Reports system reviewed and no additional complaints, except as documented Psychiatric: Psychiatric: Reports no additional psychiatric complaints Endocrine: Endocrine: Reports no additional endocrine complaints Hematologic/Lymphatic: Hematologic/Lymphatic: Reports no additional hematologic/lymphatic complaints Allergic/Immunologic: Allergic/Immunologic: Reports no additional allergic/immunologic complaints Exam Const: General: healthy appearing Orientation/consciousness: oriented to person, oriented to place and oriented to time Other: At the end of the spontaneous breathing trial he was agitated and tachypneic. HENMT: Head: normal to inspection Ears: hearing grossly normal bilaterally Eyes: General: appearance normal, both eyes and all related structures Neck: Neck: normal visual inspection Chest: Chest palpation & inspection: normal inspection of the chest Resp: Effort & Inspection: normal respiratory effort and able to speak in complete sentences Auscultation: no crackles, no rales, no rhonchi, no wheezes and lung sounds not diminished Other: Cardio: Jugular venous distension: no JVD GI: Inspection: normal to inspection Skin: General skin exam: normal color Neuro: General: oriented to person, oriented to place and oriented to time Other: sedated Extrem: General: normal to inspection Psych: Appearance: grossly normal Objective Data Vital Signs Vital Signs: Vital Signs - 24 hr 08/02/24 13:30 08/02/24 14:30 08/02/24 15:00 Temperature 36.4 C L Pulse Rate 120 H Respiratory Rate 20 Blood Pressure 173/78 H Pulse Oximetry 99 Oxygen Delivery Room Air Room Air Fraction of Inspired Oxygen 08/02/24 15:10 08/02/24 15:38 08/02/24 15:41 Temperature Pulse Rate 116 H 117 H Respiratory Rate Blood Pressure 168/86 H Pulse Oximetry Oxygen Delivery Room Air Fraction of Inspired Oxygen 08/02/24 16:47 08/02/24 20:04 08/02/24 20:38 Temperature 36.7 C 36.8 C Pulse Rate 102 H 106 H 102 H Respiratory Rate 20 16 Blood Pressure 151/85 H 176/85 H Pulse Oximetry 94 95 Oxygen Delivery Fraction of Inspired Oxygen 08/02/24 22:00 08/02/24 22:00 08/03/24 09:00 Temperature Pulse Rate 105 H 105 H 102 H Respiratory Rate 18 Blood Pressure 166/73 H Pulse Oximetry 93 93 95 Oxygen Delivery Room Air Fraction of Inspired Oxygen 21 08/03/24 09:00 08/03/24 09:02 Temperature Pulse Rate 102 H Respiratory Rate Blood Pressure Pulse Oximetry 95 Oxygen Delivery Room Air Fraction of Inspired Oxygen Intake/Output Intake/Output: Intake & Output 07/31/24 08/01/24 08/02/24 08/03/24 23:59 23:59 23:59 23:59 Intake Total 2226.7 219.9 270 370 Output Total 4150 1250 1250 600 [facility] -1923.3 -1030.1 -980 -230 Meds/Results Medications: Active Medications Generic Name Dose Route Start Last Admin Trade Name Freq PRN Reason Stop Dose Admin Acetaminophen 650 mg 07/25/24 19:51 08/01/24 04:07 Acetaminophen Elixir 325 Mg/10.15 Ml Udc PO 650 mg Q6H PRN Administration Mild Pain (1-3) or Fever Albuterol/Ipratropium 3 ml 07/31/24 10:36 Ipratropium 0.5 Mg/Albuterol Sulfate 2.5 Mg Ampul.Neb 3 Ml INHALATION Q6HRT PRN Wheezing Alprazolam 1 mg 08/01/24 08:30 08/02/24 20:36 Alprazolam (*Crx) 0.5 Mg Tablet PO 1 mg TID PRN Administration Anxiety Atorvastatin Calcium 40 mg 07/27/24 09:00 08/03/24 09:02 Atorvastatin 40 Mg Tablet PO 40 mg DAILY JOSEMANUEL Administration Dextrose 12.5 gm 07/27/24 12:28 Dextrose 50% 25 Gm/50 Ml Syringe IV PUSH PRN PRN Hypoglycemia Protocol Enoxaparin Sodium 40 mg 07/26/24 09:00 08/03/24 09:03 Enoxaparin 40 Mg/0.4 Ml Syringe SUB-Q 40 mg DAILY JOSEMANUEL Administration Fluticasone/Umeclidinium/Vilanterol 1 puff 08/01/24 08:00 08/03/24 09:42 Fluticasone/Umeclidin/Vilanter 100-62.5-25 Mcg Ellipta INHALATION Not Given DAILYRT JOSEMANUEL Glucagon 1 mg 07/27/24 12:28 Glucagon For Inj 1 Mg Vial IM PRN PRN Hypoglycemia Protocol Glucose 15 gm 07/27/24 12:28 Glucose Oral Gel 15 Gm Of Glucse In 37.5 Gm Tube PO PRN PRN Hypoglycemia Protocol Hydralazine HCl 10 mg 07/25/24 19:41 08/01/24 13:28 Hydralazine Hcl 20 Mg/Ml Vial IV PUSH 10 mg Q8H PRN Administration BP greater than 180/90 Hydrochlorothiazide 12.5 mg 08/02/24 09:00 08/03/24 09:02 Hydrochlorothiazide 12.5 Mg Capsule PO 12.5 mg QAM JOSEMANUEL Administration Dextrose 1,000 mls @ 100 mls/hr 07/27/24 12:28 Dextrose 5% 1,000 Ml IVPB PRN PRN Hypoglycemia Protocol Cefepime HCl 2 gm in 50 mls @ 100 mls/hr 07/30/24 15:00 08/03/24 03:05 Maxipime 2 Gm/Ns 50 Ml IVPB 08/05/24 23:59 Infused Q12H JOSEMANUEL Infusion Labetalol HCl 20 mg 07/31/24 10:33 08/02/24 15:41 Labetalol Hcl Inj 100 Mg/20 Ml Vial IV PUSH 20 mg Q4H PRN Administration SBP > 160 and HR> 60 -1st choice Loratadine 10 mg 07/26/24 09:51 08/03/24 09:02 Loratadine 10 Mg Tablet FEED TUBE 10 mg QAM JOSEMANUEL Administration Metoprolol Tartrate 25 mg 08/01/24 09:15 08/03/24 09:02 Metoprolol Tartrate 25 Mg Tablet PO 25 mg Q12HR JOSEMANUEL Administration Montelukast Sodium 10 mg 07/26/24 21:00 08/02/24 20:39 Montelukast Sodium 10 Mg Tablet PO 10 mg QHS JOSEMANUEL Administration Pantoprazole Sodium 40 mg 08/01/24 09:00 08/03/24 09:02 Pantoprazole 40 Mg Tablet PO 40 mg QAM JOSEMANUEL Administration Sodium Chloride 20 ml 07/26/24 10:36 08/03/24 06:07 Central Line Flush IV PUSH 20 ml PRN PRN Administration after blood draws Sodium Chloride 10 ml 07/26/24 10:36 Central Line Flush IV PUSH PRN PRN with TPN bag changes Sodium Chloride 10 ml 07/26/24 14:00 08/03/24 06:07 Central Line Flush IV PUSH 10 ml Q8HR JOSEMANUEL Administration Radiology Results: ITS Impressions Abdomen X-Ray 07/25/24 16:47 IMPRESSION: 1. Endotracheal tube tip 1 cm above the jose. 2. No acute cardiopulmonary disease. 3. Nasogastric tube extends into the stomach with distal tip projecting near the level of the gastroesophageal junction. Unclear with only AP projections tube extends back into the gastroesophageal junction were positioned more anteriorly in the body but superimposed over the gastroesophageal junction. Consider obtaining an oblique or crosstable lateral view for more definitive determination. Renal Ultrasound 07/27/24 14:10 IMPRESSION: 1. Normal kidneys without hydronephrosis. Chest CT 07/30/24 13:27 IMPRESSION: 1. Mild airspace opacities in right upper lobe, consistent with atelectasis versus pneumonia. 2. Airspace opacities in the lower lungs with volume loss, left worse than right, likely atelectasis. Chest X-Ray 08/01/24 06:20 Impression: Discoid left basilar atelectasis or scarring, otherwise clear lungs. Left-sided PICC line. Modified Barium Swallow 08/02/24 12:06 IMPRESSION: 1 episode of possible trace laryngeal penetration without aspiration. Please correlate with speech pathologist findings and specific feeding recommendations. Labs Labs: Laboratory Results - last 24 hr 07/30/24 08/02/24 08/03/24 13:02 11:04 06:14 WBC 17.7 H RBC 4.27 L Hgb 13.3 L Hct 40.2 L MCV 94.1 MCH 31.1 MCHC 33.1 RDW 13.0 Plt Count 287 MPV 10.1 Sodium 139 Potassium 3.1 L Chloride 104 Carbon Dioxide 25 Anion Gap 10 BUN 29 H Creatinine 0.93 Estim Creat Clear Calc 71 Estimated GFR > 60 Glucose 112 H POC Capillary Glucose 170 H Calcium 8.1 L Magnesium 2.3 Nasal RSV Type A (PCR) Not detected Nasal RSV Type B (PCR) Not detected Chlamy pneumoniae PCR Not detected Adenovirus DNA Not detected Human Bocavirus (SHERI) Not detected Coronavirus Type OC43 Not detected Coronavirus Type HKU1 Not detected Coronavirus Type 229E Not detected Coronavirus Type NL63 Not detected Human Metapneumovir PCR Not detected Influenza A (PCR) Not detected Influenza A (H1) RNA Not detected Influenza A (H3) PCR Not detected M. pneumoniae DNA Not detected Parainfluenza PCR Not detected Parainfluenza 2 (PCR) Not detected Parainfluenza 3 RNA (PCR) Not detected Parainfluenza 4 (PCR) Not detected Rhino/Enterovirus (SHERI) Not detected SARS-CoV-2 RNA (RT-PCR) Not detected Influenza Type B (PCR) Not detected Misc Test Comment see note
--- NOTE | 2024-08-03 11:22 | P.PNIM_ITS ---
Progress Note: A&P Assessment and Plan (1) Acute respiratory failure with hypoxia and hypercapnia: Code(s): J96.01 - Acute respiratory failure with hypoxia; J96.02 - Acute respiratory failure with hypercapnia Status: Acute Assessment and Plan: Acute hypoxic and hypercarbic respiratory failure which appears to be secondary to status asthmaticus. Patient has history of allergic asthma and his presentation is consistent. Patient may also have mild underlying COPD considering his long history of smoking but has not been officially diagnosed. CT scan did not show any infiltrates and procalcitonin level was low suggesting against any pneumonia Currently intubated and on mechanical ventilation. Patient was heavily sedated. Patient was still asynchronous with ventilator and was given rocuronium and started on Nimbex infusion 07/27 patient's Nimbex infusion was discontinued and sedation was lowered. As the sedation wore off patient became more tachypneic with asynchrony with the ventilator. At that time patient had high peak pressures and bilateral wheezing. Patient was started back on sedation and had to BT paralyzed. 07/28 pause Nimbex infusion. Will try to wean off sedation and evaluate for weaning trial today. Hold further fluids 07/29 patient has been exhibiting dynamic airway obstruction. When sedated and paralyzed clearly his airway pressures are low, no wheezing. When paralytics are discontinued in sedation is lowered patient becomes tachypneic, asynchronous with ventilator leading to high peak pressures and wheezing on exam.. I have him on Precedex infusion for anxiolysis. I will again discontinue Nimbex infusion and then lower propofol. Depending on how he responds will evaluate for weaning trial. 07/30 sedation holiday was performed despite being on Precedex and low-dose of propofol patient was tachypneic with respiratory rate in 40s high tidal volume and drop in saturation. Weaning trial attempt was aborted and patient was placed back on sedation Chest x-ray reviewed and shows possible left lower lobe infiltrate. With increased respiratory secretion and low-grade fever this morning I obtained blood cultures and sputum culture which are pending. Procalcitonin level was still low but CT scan of the chest showed mild airspace opacities in right upper lobe. Patient was started on vancomycin cefepime empirically for pneumonia 07/31 I reviewed chest x-ray ABG and ventilator settings. I discussed the case with auto tester. We will we suspect that patient failure to wean and doing poorly on trial could have been secondary to anxiety and agitation rather than respiratory considering there has been significant improvement wheezing and when patient is sedated his peak pressures were low and will lung exam does not exhibit any wheezing. We decided to extubate patient today without a trial. I spoke to patient's and sister who who was in ICU nurse and discussed both risks and benefits of extubating patient without a weaning trial as long as his oxygenation and vital stable. They verbalized understandings of both risks which involved him needing Airvo, nippv or even re-intubation if he fails. And agreed to proceed I turned patient's fentanyl off in later propofol. Room was set up for re- intubation if needed including up went from and drugs. Requested RT to bring Airvo at the bedside. Sedation was turned off and patient eventually started following commands by squeezing hand but when I explained to the patient that we will plan to take the tube out he stopped responding and start following commands. Patient was placed on CPAP and had adequate tidal volumes and respiratory rate. He did become little tachycardic but did had bronchodilator treatment prior to that. His saturation remained adequate. At that point decision was made to extubate patient. When RT was trying to extubate patient he was biting on the tube and did not wanted the tube removed which was quite atypical. Despite he explaining to the patient that he was doing much better and it was time to give him a chance to breathe on his own he kept on biting on the tube and would not let it go. With difficulty we were able to extubate the patient and patient was placed on Airvo his sats remained well and respiratory rate improved. He did become tachycardic and blood pressure was slightly elevated and was given labetalol. At that point when RT try to suction patient with yaunker he kept on biting on the yaunker and would not let it go. Patient was given labetalol and also 2 mg of Versed to treat his anxiety and then nursing staff was able to remove the on curve from his teeth. I requested family to come at bedside to help with his anxiety and agitation.. At this point when I spoke to patient's sister directly and asked if patient has any history of psychiatric disorder she told me the patient has history of depression and ADHD and is currently not on any treatment. I was at bedside directly managing patient and also discussing with auto tester and family during this time At this point patient is doing reasonable and is on Airvo at 45 L and 60% FiO2. His heart rate is in 100s. He does not have any significant wheezing on exam or stridor on neck auscultation. His blood pressure is slightly elevated. I will continue p.r.n. suctioning, Precedex for anxiolysis, p.r.n. Ativan for agitation, supplemental oxygen and monitor closely 08/01 in doing much better clinically. I will continue to wean FiO2 and flow on Airvo. Decreased 30% and 30 L. add Xanax p.r.n. for anxiety. Discontinue Solu- Medrol. Continue bronchodilators but only p.r.n. Add incentive spirometry Up in chair Contain Claritin and Singulair 08/02/24 Improved, Off oxygen saturation 93%. Continue singular, Trelegy. Continue cefepime for possible pneumonia. Pulmonary team on board 08/03/24 Off of oxygen, saturation 93%. Continue cefepime. pulmonary team on board (2) Hypertension: Qualifiers: Hypertension type: primary hypertension Qualified Code(s): I10 - Essential (primary) hypertension Code(s): I10 - Essential (primary) hypertension Status: Chronic Assessment and Plan: p.o. metoprolol and hydrochlorothiazide P.r.n. labetalol (3) Allergic asthma: Qualifiers: Asthma severity: severe Asthma persistence: persistent Asthma complication type: with acute exacerbation Qualified Code(s): J45.51 - Severe persistent asthma with (acute) exacerbation Code(s): J45.909 - Unspecified asthma, uncomplicated Status: Acute Assessment and Plan: See above (4) COPD (chronic obstructive pulmonary disease): Qualifiers: COPD type: unspecified COPD Qualified Code(s): J44.9 - Chronic obstructive pulmonary disease, unspecified Code(s): J44.9 - Chronic obstructive pulmonary disease, unspecified Status: Acute Assessment and Plan: See above (5) Obstructive sleep apnea: Code(s): G47.33 - Obstructive sleep apnea (adult) (pediatric) Status: Acute Assessment and Plan: CPAP ordered for at night (6) Status asthmaticus: Code(s): J45.902 - Unspecified asthma with status asthmaticus Status: Acute Assessment and Plan: See above (7) GRACIELA (acute kidney injury): Code(s): N17.9 - Acute kidney failure, unspecified Status: Acute Assessment and Plan: Resolve (8) Pneumonia: Code(s): J18.9 - Pneumonia, unspecified organism Status: Acute Assessment and Plan: See above Plan DVT prophylaxis -Lovenox Stress ulcer prophylaxis -Protonix Nutrition - npo now. Consult speech therapy for swallow evaluation Code Status - Full Code Case discussed with pulmonology Consult PT OT Incentive spirometer Up in chair Consult speech for swallow evaluation Total Critical Care Time - 30 minutes Due to a high probability of clinically significant, life threatening det erioration, the patient required my highest level of preparedness to intervene emergently and I personally spent this critical care time directly and personally managing the patient. This critical care time included obtaining a history; examining the patient; pulse oximetry; ordering and review of studies; arranging urgent treatment with development of a management plan; evaluation of patient's response to treatment; frequent reassessment; and discussions with other providers. It was exclusive of separately billable procedures and treating other patients and teaching time. Please see Assessment and Plan section and the rest of the note for further information on patient assessment and treatment Subjective Date/time seen: 08/03/24 11:22 Interval history: Chief complaint: COPD exacerbation Narrative: This is a consultation for a patient with respiratory failure who is currently intubated and fully sedated on mechanical ventilation. This report is based on information obtained from the patient's electronic chart and from the patient's , who was at the bedside. Reportedly, the patient was diagnosed with asthma, and this is the fourth hospitalization for shortness of breath and cough. According to his , the patient's respiratory problems began last August following a COVID-19 infection. In December of last year, while camping in [place], the patient developed a cough with progressively worsening shortness of breath. According to his , he was treated for obstructive airway disease. Since then, the patient has been hospitalized with similar symptoms on two more occasions: once in March at [facility] and again at [facility], where he stayed for 4 to 5 days. His diagnosis was COPD versus asthma, and the patient had been on a Trelegy inhaler and short-acting bronchodilators. After each hospitalization, he received an oral steroid regimen, which led to significant improvement for weeks, but his cough would typically return weeks after stopping the steroids. This hospitalization was prompted by a cough that became progressively worse and shortness of breath since last Tuesday. He had no other respiratory symptoms such as fever, chest pain, orthopnea, or lower extremity edema. Upon evaluation in the emergency room, initial arterial blood gases showed respiratory alkalosis. The patient was treated with nebulized short-acting bronchodilators and BiPAP support. According to ER reports, the patient became somnolent and appeared ti red, and because of worsening arterial blood gases, he was intubated. Repeat arterial blood gases in the emergency room showed rising pCO2 and the development of a metabolic component, with a pH of 7.21 and pCO2 of 54 mmHg, consistent with combined respiratory and metabolic acidosis. The patient was transferred to the intensive care unit, where he is currently fully sedated and paralyzed on mechanical ventilation, receiving a tidal volume of 450 mL, total respirations of 18 (all passive), PEEP of 5 cm H2O, and FiO2 of 40%. His chest CT showed mild basal atelectasis and very small pleural effusions bilaterally. Currently, the patient is being treated for obstructive airway disease with IV steroids and nebulized short-acting bronchodilators. His eosinophil count was elevated to over 1800, and previous CBCs showed that eosinophils were similarly elevated on at least three occasions since 2021. A pulmonary function test in April of last year showed essentially normal results. 07/27/24: Patient remains intubated fully sedated and paralyzed on same ventilator settings. 07/28/24: Patient was seen early the morning when his sedative medications were discontinued and the patient was about to go on weaning trial. No new respiratory events over the last 24 hours while the patient was still on sedative paralyzing medications. He has been hemodynamically stable and has been afebrile. 07/29/24: Patient remains sedated on mechanical ventilation. Reportedly failed weaning trial yesterday. Afebrile while on tidal volume 450 peep of 8 and FiO2 45%. 07/30/24: patient remains sedated with propofol, Precedex and p.r.n. Versed. On turning down the propofol and Precedex the patient was able to follow simple commands but after 10 minutes became agitated, tachypneic with desaturations. This has been the pattern for him and he has been unsuccessful at tolerating a spontaneous breathing trial on lower sedation. When he was sedated he has no wheezing and low peak airway pressures. Later in the day patient had a CT scan of the chest demonstrating minimal right upper lobe infiltrate, minimal left lower lobe greater than right lower lobe basilar infiltrate with no focal consolidations or evidence of emphysema. Empirically started on vancomycin and cefepime for possible pneumonia with fever, increased secretions and these minimal infiltrates. 07/31/2024: Patient remains intubated and sedated with fentanyl 200, propofol 50 and Precedex 1.5. he is on tidal volume of 450 with peak airway pressure is 20 and 60% with a PEEP of 8. ABG 7.45/38/92. White blood cell count 18.9, creatinine 0.75. He is afebrile. later in the day the patient was extubated and placed on Airvo 40 L and 40% FiO2. 08/01/2024: Patient remains extubated. He is still on low-dose Precedex. He does know his name and is place but is confused. Follow simple commands. Denies any respiratory distress. Currently he is on Airvo 40 L and 40% FiO2 saturations 98%. White blood cell count 24.7. Creatinine 0.89. Patient had a fever. Chest x-ray shows minimal atelectasis in the left base with otherwise clear lungs. ABG on CPAP 12 with 35% which he tolerated last night 7.08/02/24 Patient was seen and examined at bedside. He is feeling better. Alert and oriented x3 . His breathing improved. Currently on room air saturation 93%. Denies any chest pain, abdominal pain, nausea vomiting. he has upper and lower extremity weakness. Waiting for PT OT evaluation. Speech therapy evaluated patient plan for a swallow test today. Discussed with pulmonary team 08/03/24 Patient was seen and examined at bedside. He is tired after working with PT. Denies any chest pain, shortness off pressor. Complain of abdominal pain.. Last bowel movement few days ago. Intermittent fever. Patient is on cefepime. WBC improving. He passed swallow evaluation. We will continue to monitor. Discussed with Pulmonary team. DATA: 07/30/24: EXAMINATION:CT diagnostic chest wo con DATE: 07/30/2024 12:23 INDICATION: Acute respiratory failure. TECHNIQUE: Computed tomography (CT) of the chest was performed without intravenous contrast. Automated exposure control and iterative reconstruction technique were employed. The dose-length product (DLP) was 532.14 mGy-cm. COMPARISON: Chest CT 07/25/2024 FINDINGS: There are mild airspace opacities in right upper lobe. There are airspace opacities with volume loss involving the lower lobes, left worse than right. There is a 4 mm nodule in right upper lobe, likely benign. There is a trace left pleural effusion. The heart size is normal. There are coronary artery calcifications. No pericardial effusion. There is an endotracheal tube tip is in expected position. The nasogastric tube tip is in the stomach. A left upper extremity peripherally inserted central venous catheter (PICC) is seen with tip in the right atrium. There is a 4 mm stone in left kidney. There is severe cervical spondylosis and mild thoracic spondylosis. IMPRESSION: 1. Mild airspace opacities in right upper lobe, consistent with atelectasis versus pneumonia. 2. Airspace opacities in the lower lungs with volume loss, left worse than right, likely atelectasis. 07/25/2024: CT diagnostic chest wo con Ordering provider: Maggie Morales APRN History: 68 years Male with . hypoxic . Comparison: None. Technique: CT chest without IV contrast. Radiation reduction technique utilized.The dose-length product was 390.57 mGy- cm. FINDINGS: VISUALIZED THORACIC INLET: Normal. Endotracheal tube is seen in the trachea with the tip at the jose. Nasogastric tube is seen with the tip in the distal stomach. MEDIASTINUM: Aorta/coronary arteries: Mild atheromatous disease. Heart/other: The heart is not enlarged. Lymph nodes: No mediastinal or hilar adenopathy. 1 cm paratracheal lymph node is seen. Precarinal lymph node is seen measuring 1.2 cm. Other smaller lymph nodes are seen LUNGS: Bilateral basal atelectatic changes with trace of effusion more on the right side. No pulmonary nodules or masses. No pneumothorax. VISUALIZED UPPER ABDOMEN: 5 mm stone in the left kidney upper pole. Otherwise, the visualized upper abdomen is normal. MUSCULOSKELETAL: Soft tissues: The superficial soft tissues are normal. Bones: Age appropriate degenerative changes of the spine. IMPRESSION: 1. Minimal bilateral basal atelectasis with minimal effusion. 2. Endotracheal tube with the tip at the jose. Retraction by 2 to 3 cm is advised. 3. Left kidney stone. * 04/04/2024; CXR;INDICATION: Chronic shortness of breath. TECHNIQUE: Frontal and lateral views of the chest were obtained. COMPARISON: Chest view 04/01/2024, chest CT 04/02/2024; FINDINGS: There is mild atelectasis at the lung bases. No pleural effusion or pneumothorax. The heart size is normal. IMPRESSION: 1. Mild atelectasis at the lung bases. * 04/04/2024 urine drug screen; negative for opiates, methadone, barbiturates, phencyclidine, amphetamine, benzodiazepines, cocaine, cannabinoids. * 04/03/2024; alpha-1 anti trypsin phenotype MM, normal. * 04/02/24 extended viral respiratory pathogen panel; adenovirus, rhinovirus/enterovirus, influenza A subtypes H1H3, influenza B, human metapneumovirus, RSV A/B, human parainfluenza 1/2/3. * 04/04/24; VQ scan: 04/04/2024 13:42 INDICATION: Chronic shortness of breath. TECHNIQUE: 7.9 mCi Xenon-133 was given for ventilation images. 5.4 mCi Tc-99m MAA was administered intravenously for perfusion images. Scintigraphic images of the chest were obtained. COMPARISON: Chest 2 views 04/04/2024, chest CT 04/02/2024; FINDINGS: The ventilation images demonstrate retention in the mid and lower lung zones. The perfusion images demonstrate small defects in the lower lobes. IMPRESSION: Low probability for pulmonary embolism. * 04/02/2024; echo;Definity contrast administered improved wall motion interpretation. 2. Left ventricular chamber dimension is normal. 3. Left ventricular systolic function is normal, estimated at 65-70%. 4. The left ventricular diastolic function is grade I diastolic dysfunction. 5. E/e' 7 is not elevated. 6. Left atrial chamber dimension is mildly enlarged. * 04/01/2024 CTA ; There is mild scarring at the lung apices. There is a 3 mm nodule in right upper lobe, likely benign. There is mild atelectasis bilaterally. There is mucous plugging in the lower lobes. No pleural effusion. The heart size is normal. No pericardial effusion. There are coronary artery calcifications. There is no pericardial effusion. There is no pulmonary embolus. There is severe cervical and thoracic spondylosis. IMPRESSION: No pulmonary embolus. * He had negative MRSA swab, viral swabs for influenza A/B, RSV, SARS-CoV-2. Review of Systems Review of Systems: All systems reviewed & are unremarkable except as noted in HPI and below (HPI) Exam Narrative: General: Pt is alert awake and in no distress Lungs/Chest: Trachea central nol wheezing, Improved overall air movement, no wheezing Cardiac: RRR. Normal S1 S2. No murmurs Circulation: Pedal pulses are intact and symmetrical. Abdomen: Decreased bowel sounds. Obese. Soft. NT. ND. Extremities: No clubbing, cyanosis or edema. Warm : Garcia in place Neurologic: AO x3 , follows commands all 4 extremities. PERRL. Decreased range of motion of bilateral upper and lower extremity Const: General: in distress and uncomfortable Other: , male, ill-appearing, significant respiratory distress HENMT: Face/Nose/Sinus: Normal nares present Mouth: Yes dry mucous membranes Eyes: General: appearance normal, both eyes and all related structures S clera: sclerae normal Pupils: Equal, round and reactive pupils present EOM: EOMs intact bilaterally Resp: Other: No crackles or rhonchi. Cardio: Rate: tachycardic Rhythm: regular rhythm Other: S1-S2 present without murmur, rub, ectopy GI: Other: Abdomen soft, nondistended, nontender. Normoactive bowel sounds in all quadrants. Skin: General skin exam: normal color and no rashes or lesions noted Wounds: no wounds Neuro: Cranial nerves: Yes Equal, round and reactive pupils present Speech: normal speech Motor exam (neuro): Abnormal motor strength present Sensory Exam: normal sensation Other: A&O x4. Extrem: General: normal to inspection Psych: Mental Status: mental status grossly normal Affect: normal affect Other: Good insight and judgment, pleasant Objective Data Vital Signs Vital Signs: Vital Signs - 24 hr 08/02/24 13:30 08/02/24 14:30 08/02/24 15:00 Temperature 97.5 F L Pulse Rate 120 H Respiratory Rate 20 Blood Pressure 173/78 H Pulse Oximetry 99 Oxygen Delivery Room Air Room Air Fraction of Inspired Oxygen 08/02/24 15:10 08/02/24 15:38 08/02/24 15:41 Temperature Pulse Rate 116 H 117 H Respiratory Rate Blood Pressure 168/86 H Pulse Oximetry Oxygen Delivery Room Air Fraction of Inspired Oxygen 08/02/24 16:47 08/02/24 20:04 08/02/24 20:38 Temperature 98.1 F 98.3 F Pulse Rate 102 H 106 H 102 H Respiratory Rate 20 16 Blood Pressure 151/85 H 176/85 H Pulse Oximetry 94 95 Oxygen Delivery Fraction of Inspired Oxygen 08/02/24 22:00 08/02/24 22:00 08/03/24 09:00 Temperature Pulse Rate 105 H 105 H 102 H Respiratory Rate 18 Blood Pressure 166/73 H Pulse Oximetry 93 93 95 Oxygen Delivery Room Air Fraction of Inspired Oxygen 21 08/03/24 09:00 08/03/24 09:02 Temperature Pulse Rate 102 H Respiratory Rate Blood Pressure Pulse Oximetry 95 Oxygen Delivery Room Air Fraction of Inspired Oxygen Intake/Output Intake/Output: Intake & Output 07/31/24 08/01/24 08/02/24 08/03/24 23:59 23:59 23:59 23:59 Intake Total 2226.7 219.9 270 370 Output Total 4150 1250 1250 600 [facility]1923.3 -1030.1 -980 -230 Meds/Results Medications: Active Medications Generic Name Dose Route Start Last Admin Trade Name Freq PRN Reason Stop Dose Admin Acetaminophen 650 mg 07/25/24 19:51 08/01/24 04:07 Acetaminophen Elixir 325 Mg/10.15 Ml Udc PO 650 mg Q6H PRN Administration Mild Pain (1-3) or Fever Albuterol/Ipratropium 3 ml 07/31/24 10:36 Ipratropium 0.5 Mg/Albuterol Sulfate 2.5 Mg Ampul.Neb 3 Ml INHALATION Q6HRT PRN Wheezing Alprazolam 1 mg 08/01/24 08:30 08/02/24 20:36 Alprazolam (*Crx) 0.5 Mg Tablet PO 1 mg TID PRN Administration Anxiety Atorvastatin Calcium 40 mg 07/27/24 09:00 08/03/24 09:02 Atorvastatin 40 Mg Tablet PO 40 mg DAILY JOSEMANUEL Administration Dextrose 12.5 gm 07/27/24 12:28 Dextrose 50% 25 Gm/50 Ml Syringe IV PUSH PRN PRN Hypoglycemia Protocol Enoxaparin Sodium 40 mg 07/26/24 09:00 08/03/24 09:03 Enoxaparin 40 Mg/0.4 Ml Syringe SUB-Q 40 mg DAILY JOSEMANUEL Administration Fluticasone/Umeclidinium/Vilanterol 1 puff 08/01/24 08:00 08/03/24 09:42 Fluticasone/Umeclidin/Vilanter 100-62.5-25 Mcg Ellipta INHALATION Not Given DAILYRT JOSEMANUEL Glucagon 1 mg 07/27/24 12:28 Glucagon For Inj 1 Mg Vial IM PRN PRN Hypoglycemia Protocol Glucose 15 gm 07/27/24 12:28 Glucose Oral Gel 15 Gm Of Glucse In 37.5 Gm Tube PO PRN PRN Hypoglycemia Protocol Hydralazine HCl 10 mg 07/25/24 19:41 08/01/24 13:28 Hydralazine Hcl 20 Mg/Ml Vial IV PUSH 10 mg Q8H PRN Administration BP greater than 180/90 Hydrochlorothiazide 12.5 mg 08/02/24 09:00 08/03/24 09:02 Hydrochlorothiazide 12.5 Mg Capsule PO 12.5 mg QAM JOSEMANUEL Administration Dextrose 1,000 mls @ 100 mls/hr 07/27/24 12:28 Dextrose 5% 1,000 Ml IVPB PRN PRN Hypoglycemia Protocol Cefepime HCl 2 gm in 50 mls @ 100 mls/hr 07/30/24 15:00 08/03/24 03:05 Maxipime 2 Gm/Ns 50 Ml IVPB 08/05/24 23:59 Infused Q12H JOSEMANUEL Infusion Labetalol HCl 20 mg 07/31/24 10:33 08/02/24 15:41 Labetalol Hcl Inj 100 Mg/20 Ml Vial IV PUSH 20 mg Q4H PRN Administration SBP > 160 and HR> 60 -1st choice Loratadine 10 mg 07/26/24 09:51 08/03/24 09:02 Loratadine 10 Mg Tablet FEED TUBE 10 mg QAM JOSEMANUEL Administration Metoprolol Tartrate 25 mg 08/01/24 09:15 08/03/24 09:02 Metoprolol Tartrate 25 Mg Tablet PO 25 mg Q12HR JOSEMANUEL Administration Montelukast Sodium 10 mg 07/26/24 21:00 08/02/24 20:39 Montelukast Sodium 10 Mg Tablet PO 10 mg QHS JOSEMANUEL Administration Pantoprazole Sodium 40 mg 08/01/24 09:00 08/03/24 09:02 Pantoprazole 40 Mg Tablet PO 40 mg QAM JOSEMANUEL Administration Sodium Chloride 20 ml 07/26/24 10:36 08/03/24 06:07 Central Line Flush IV PUSH 20 ml PRN PRN Administration after blood draws Sodium Chloride 10 ml 07/26/24 10:36 Central Line Flush IV PUSH PRN PRN with TPN bag changes Sodium Chloride 10 ml 07/26/24 14:00 08/03/24 06:07 Central Line Flush IV PUSH 10 ml Q8HR JOSEMANUEL Administration Radiology Results: ITS Impressions Abdomen X-Ray 07/25/24 16:47 IMPRESSION: 1. Endotracheal tube tip 1 cm above the jose. 2. No acute cardiopulmonary disease. 3. Nasogastric tube extends into the stomach with distal tip projecting near the level of the gastroesophageal junction. Unclear with only AP projections tube extends back into the gastroesophageal junction were positioned more anteriorly in the body but superimposed over the gastroesophageal junction. Consider obtaining an oblique or crosstable lateral view for more definitive determination. Renal Ultrasound 07/27/24 14:10 IMPRESSION: 1. Normal kidneys without hydronephrosis. Chest CT 07/30/24 13:27 IMPRESSION: 1. Mild airspace opacities in right upper lobe, consistent with atelectasis versus pneumonia. 2. Airspace opacities in the lower lungs with volume loss, left worse than right, likely atelectasis. Chest X-Ray 08/01/24 06:20 Impression: Discoid left basilar atelectasis or scarring, otherwise clear lungs. Left-sided PICC line. Modified Barium Swallow 08/02/24 12:06 IMPRESSION: 1 episode of possible trace laryngeal penetration without aspiratio n. Please correlate with speech pathologist findings and specific feeding recommendations. Labs Labs: Laboratory Results - last 24 hr 07/30/24 08/02/24 08/03/24 13:02 11:04 06:14 WBC 17.7 H RBC 4.27 L Hgb 13.3 L Hct 40.2 L MCV 94.1 MCH 31.1 MCHC 33.1 RDW 13.0 Plt Count 287 MPV 10.1 Sodium 139 Potassium 3.1 L Chloride 104 Carbon Dioxide 25 Anion Gap 10 BUN 29 H Creatinine 0.93 Estim Creat Clear Calc 71 Estimated GFR > 60 Glucose 112 H POC Capillary Glucose 170 H Calcium 8.1 L Magnesium 2.3 Nasal RSV Type A (PCR) Not detected Nasal RSV Type B (PCR) Not detected Chlamy pneumoniae PCR Not detected Adenovirus DNA Not detected Human Bocavirus (SHERI) Not detected Coronavirus Type OC43 Not detected Coronavirus Type HKU1 Not detected Coronavirus Type 229E Not detected Coronavirus Type NL63 Not detected Human Metapneumovir PCR Not detected Influenza A (PCR) Not detected Influenza A (H1) RNA Not detected Influenza A (H3) PCR Not detected M. pneumoniae DNA Not detected Parainfluenza PCR Not detected Parainfluenza 2 (PCR) Not detected Parainfluenza 3 RNA (PCR) Not detected Parainfluenza 4 (PCR) Not detected Rhino/Enterovirus (SHERI) Not detected SARS-CoV-2 RNA (RT-PCR) Not detected Influenza Type B (PCR) Not detected Misc Test Comment see note Quality VTE Prophylaxis VTE prophylaxis: pharmacologic ordered
--- NOTE | 2024-08-03 11:32 | PCNFU ---
Nutrition Follow-Up Complete: Suboptimal Energy Intake as related to mechanical ventilation as evidenced by NPO/TF. goal: Meet estimated nutritional needs. Patient is progressing towards goal. Pt current nutrition is Heart Healthy. Last recorded weight is 85.2 kg, up from 83 kg on admit. Bowel Motility: +BM reported 07/27 Labs Reviewed: Glu 112, BUN 29, K 3.1, Hct 40.2, Hgb 13.3 Meds Noted: Lovenox, Lopressor Skin: WNL Additional Notes: Patient had MBS 4/-recommending regular consistencies. Patient is currently on heart healthy diet, tolerating. Agree with diet orders. Will monitor weight, labs, skin, diet orders, meds every 7 days.
[2024-08-03] MEDS: FLUTICASONE/UMECLIDIN/VILANTER 100-62.5-25 MCG ELLIPTA 1 PUFF INHALATION (12:05)
[2024-08-03] MEDS: polyethylene glycoL 3350 17 GM POWD.PACK PO (13:17)
[2024-08-03] MEDS: amLODIPine BESYLATE 10 MG TABLET PO (13:17)
[2024-08-03] MEDS: SENNA/DOCUSATE SODIUM TABLET 1 TAB PO (13:17)
[2024-08-03] MEDS: MONTELUKAST SODIUM 10 MG TABLET PO (20:44)
[2024-08-03] MEDS: ALPRAZolam (*CRX) 0.5 MG TABLET 1 MG PO (20:44)
[2024-08-04] VITALS (8 sets, daily range): BP systolic 140–172; BP diastolic 71–81; PULSE 90–108; RESP 16–20; TEMP 36.6–36.8; O2SAT 93–97
[2024-08-04] MEDS: CEFEPIME 2 GM/NS 50 ML 2 GM/50 ML BAG IVPB ×2 (02:10→15:25)
--- NOTE | 2024-08-04 02:22 | PC.NURSE ---
Patient does not appear to be comfortable wearing his CPAP tonight. Walked in to give his IV antibiotics and patient had mask on, but hose disconnected. Patient doesn't understand how he can be full of xanax and not get any sleep and be hallucinating. Patient requested another dose of xanax. This nurse told him that it was not time yet for another dose. Patient then wanted to sit in chair. Told him that we could work it out, but that we would wait until his IV antibiotics were done. Earlier patient had set off the alarm. Had left leg out of bed. Mask off. Mask flung under side table. Reset patient in bed.
[2024-08-04] MEDS: CENTRAL LINE FLUSH 20 ML IV PUSH (05:42)
[2024-08-04] MEDS: CENTRAL LINE FLUSH 10 ML IV PUSH ×3 (05:42→21:56)
[2024-08-04 05:50] LABS: Hematocrit 38.1 % (42.0-52.0); Hemoglobin 12.9 g/dL (14.0-18.0); Mean Corpuscular HGB Conc 33.9 g/dl (32-36); Mean Corpuscular Hemoglobin 31.4 pg (26-34); Mean Corpuscular Volume 92.7 fl (80-100); Mean Platelet Volume 9.7 fl (7.4-10.4); Platelet Count Result 241 k/mm3 (150-375); Red Blood Count 4.11 M/mm3 (4.6-6.20); Red Cell Distribution Width 12.6 % (11.5-14.5); White Blood Count 17.9 K/mm3 (4.5-10.0)
[2024-08-04 06:01] LABS: Anion Gap 7 mmol/L (4-12); Blood Urea Nitrogen 23 mg/dL (9-20); Calcium 8.3 mg/dL (8.4-10.2); Carbon Dioxide 26 mmol/L (22-30); Chloride 105 mmol/L (98-107); Estimated CRCL calculation 70 ml/min; Estimated Glomerular Filt Rate > 60; Glucose 108 mg/dL (65-110); Potassium 3.1 mmol/L (3.4-5.0); Sodium 138 mmol/L (137-145)
--- NOTE | 2024-08-04 07:27 | PM.IMPN ---
Progress Note: A&P Assessment and Plan (1) Acute respiratory failure with hypoxia and hypercapnia: Code(s): J96.01 - Acute respiratory failure with hypoxia; J96.02 - Acute respiratory failure with hypercapnia Status: Acute Assessment and Plan: Acute hypoxic and hypercarbic respiratory failure which appears to be secondary to status asthmaticus. Patient has history of allergic asthma and his presentation is consistent. Patient may also have mild underlying COPD considering his long history of smoking but has not been officially diagnosed. CT scan did not show any infiltrates and procalcitonin level was low suggesting against any pneumonia Currently intubated and on mechanical ventilation. Patient was heavily sedated. Patient was still asynchronous with ventilator and was given rocuronium and started on Nimbex infusion 07/27 patient's Nimbex infusion was discontinued and sedation was lowered. As the sedation wore off patient became more tachypneic with asynchrony with the ventilator. At that time patient had high peak pressures and bilateral wheezing. Patient was started back on sedation and had to BT paralyzed. 07/28 pause Nimbex infusion. Will try to wean off sedation and evaluate for weaning trial today. Hold further fluids 07/29 patient has been exhibiting dynamic airway obstruction. When sedated and paralyzed clearly his airway pressures are low, no wheezing. When paralytics are discontinued in sedation is lowered patient becomes tachypneic, asynchronous with ventilator leading to high peak pressures and wheezing on exam.. I have him on Precedex infusion for anxiolysis. I will again discontinue Nimbex infusion and then lower propofol. Depending on how he responds will evaluate for weaning trial. 07/30 sedation holiday was performed despite being on Precedex and low-dose of propofol patient was tachypneic with respiratory rate in 40s high tidal volume and drop in saturation. Weaning trial attempt was aborted and patient was placed back on sedation Chest x-ray reviewed and shows possible left lower lobe infiltrate. With increased respiratory secretion and low-grade fever this morning I obtained blood cultures and sputum culture which are pending. Procalcitonin level was still low but CT scan of the chest showed mild airspace opacities in right upper lobe. Patient was started on vancomycin cefepime empirically for pneumonia 07/31 I reviewed chest x-ray ABG and ventilator settings. I discussed the case with assistant project engineer. We will we suspect that patient failure to wean and doing poorly on trial could have been secondary to anxiety and agitation rather than respiratory considering there has been significant improvement wheezing and when patient is sedated his peak pressures were low and will lung exam does not exhibit any wheezing. We decided to extubate patient today without a trial. I spoke to patient's and sister who who was in ICU nurse and discussed both risks and benefits of extubating patient without a weaning trial as long as his oxygenation and vital stable. They verbalized understandings of both risks which involved him needing Airvo, nippv or even re-intubation if he fails. And agreed to proceed I turned patient's fentanyl off in later propofol. Room was set up for re-intubation if needed including up went from and drugs. Requested RT to bring Airvo at the bedside. Sedation was turned off and patient eventually started following commands by squeezing hand but when I explained to the patient that we will plan to take the tube out he stopped responding and start following commands. Patient was placed on CPAP and had adequate tidal volumes and respiratory rate. He did become little tachycardic but did had bronchodilator treatment prior to that. His saturation remained adequate. At that point decision was made to extubate patient. When RT was trying to extubate patient he was biting on the tube and did not wanted the tube removed which was quite atypical. Despite he explaining to the patient that he was doing much better and it was time to give him a chance to breathe on his own he kept on biting on the tube and would not let it go. With difficulty we were able to extubate the patient and patient was placed on Airvo his sats remained well and respiratory rate improved. He did become tachycardic and blood pressure was slightly elevated and was given labetalol. At that point when RT try to suction patient with yaunker he kept on biting on the yaunker and would not let it go. Patient was given labetalol and also 2 mg of Versed to treat his anxiety and then nursing staff was able to remove the on curve from his teeth. I requested family to come at bedside to help with his anxiety and agitation.. At this point when I spoke to patient's sister directly and asked if patient has any history of psychiatric disorder she told me the patient has history of depression and ADHD and is currently not on any treatment. I was at bedside directly managing patient and also discussing with assistant project engineer and family during this time At this point patient is doing reasonable and is on Airvo at 45 L and 60% FiO2. His heart rate is in 100s. He does not have any significant wheezing on exam or stridor on neck auscultation. His blood pressure is slightly elevated. I will continue p.r.n. suctioning, Precedex for anxiolysis, p.r.n. Ativan for agitation, supplemental oxygen and monitor closely 08/01 in doing much better clinically. I will continue to wean FiO2 and flow on Airvo. Decreased 30% and 30 L. add Xanax p.r.n. for anxiety. Discontinue Solu-Medrol. Continue bronchodilators but only p.r.n. Add incentive spirometry Up in chair Contain Claritin and Singulair 08/02/24 Improved, Off oxygen saturation 93%. Continue singular, Trelegy. Continue cefepime for possible pneumonia. Pulmonary team on board 08/03/24 Off of oxygen, saturation 93%. Continue cefepime. pulmonary team on board 08/05/23 Off oxygen. Continue with montelukast, Trelegy. BiPAP p.r.n.. Cefepime. pulmonary team on board (2) Hypertension: Qualifiers: Hypertension type: primary hypertension Qualified Code(s): I10 - Essential (primary) hypertension Code(s): I10 - Essential (primary) hypertension Status: Chronic Assessment and Plan: p.o. metoprolol and hydrochlorothiazide P.r.n. labetalol (3) Allergic asthma: Qualifiers: Asthma complication type: with acute exacerbation Asthma persistence: persistent Asthma severity: severe Qualified Code(s): J45.51 - Severe persistent asthma with (acute) exacerbation Code(s): J45.909 - Unspecified asthma, uncomplicated Status: Acute Assessment and Plan: See above (4) COPD (chronic obstructive pulmonary disease): Qualifiers: COPD type: unspecified COPD Qualified Code(s): J44.9 - Chronic obstructive pulmonary disease, unspecified Code(s): J44.9 - Chronic obstructive pulmonary disease, unspecified Status: Acute Assessment and Plan: See above (5) Obstructive sleep apnea: Code(s): G47.33 - Obstructive sleep apnea (adult) (pediatric) Status: Acute Assessment and Plan: CPAP ordered for at night (6) Status asthmaticus: Code(s): J45.902 - Unspecified asthma with status asthmaticus Status: Acute Assessment and Plan: See above (7) GRACIELA (acute kidney injury): Code(s): N17.9 - Acute kidney failure, unspecified Status: Acute Assessment and Plan: Resolve (8) Pneumonia: Code(s): J18.9 - Pneumonia, unspecified organism Status: Acute Assessment and Plan: See above (9) Hypokalemia: Code(s): E87.6 - Hypokalemia Status: Acute Assessment and Plan: Replace with p.o. potassium other than Plan DVT prophylaxis -Lovenox Stress ulcer prophylaxis -Protonix Nutrition -pass swallow evaluation Code Status - Full Code PT OT on board Incentive spirometer Up in chair Plan to discharge to rehab on Tuesday Subjective Date/time seen: 08/04/24 07:27 Interval history: Chief complaint: COPD exacerbation Narrative: This is a consultation for a patient with respiratory failure who is currently intubated and fully sedated on mechanical ventilation. This report is based on information obtained from the patient's electronic chart and from the patient's , who was at the bedside. Reportedly, the patient was diagnosed with asthma, and this is the fourth hospitalization for shortness of breath and cough. According to his , the patient's respiratory problems began last August following a COVID-19 infection. In December of last year, while camping in [place], the patient developed a cough with progressively worsening shortness of breath. According to his , he was treated for obstructive airway disease. Since then, the patient has been hospitalized with similar symptoms on two more occasions: once in March at [facility] and again at [facility], where he stayed for 4 to 5 days. His diagnosis was COPD versus asthma, and the patient had been on a Trelegy inhaler and short-acting bronchodilators. After each hospitalization, he received an oral steroid regimen, which led to significant improvement for weeks, but his cough would typically return weeks after stopping the steroids. This hospitalization was prompted by a cough that became progressively worse and shortness of breath since last Tuesday. He had no other respiratory symptoms such as fever, chest pain, orthopnea, or lower extremity edema. Upon evaluation in the emergency room, initial arterial blood gases showed respiratory alkalosis. The patient was treated with nebulized short-acting bronchodilators and BiPAP support. According to ER reports, the patient became somnolent and appeared tired, and because of worsening arterial blood gases, he was intubated. Repeat arterial blood gases in the emergency room showed rising pCO2 and the development of a metabolic component, with a pH of 7.21 and pCO2 of 54 mmHg, consistent with combined respiratory and metabolic acidosis. The patient was transferred to the intensive care unit, where he is currently fully sedated and paralyzed on mechanical ventilation, receiving a tidal volume of 450 mL, total respirations of 18 (all passive), PEEP of 5 cm H2O, and FiO2 of 40%. His chest CT showed mild basal atelectasis and very small pleural effusions bilaterally. Currently, the patient is being treated for obstructive airway disease with IV steroids and nebulized short-acting bronchodilators. His eosinophil count was elevated to over 1800, and previous CBCs showed that eosinophils were similarly elevated on at least three occasions since 2021. A pulmonary function test in April of last year showed essentially normal results. 07/27/24: Patient remains intubated fully sedated and paralyzed on same ventilator settings. 07/28/24: Patient was seen early the morning when his sedative medications were discontinued and the patient was about to go on weaning trial. No new respiratory events over the last 24 hours while the patient was still on sedative paralyzing medications. He has been hemodynamically stable and has been afebrile. 07/29/24: Patient remains sedated on mechanical ventilation. Reportedly failed weaning trial yesterday. Afebrile while on tidal volume 450 peep of 8 and FiO2 45%. 07/30/24: patient remains sedated with propofol, Precedex and p.r.n. Versed. On turning down the propofol and Precedex the patient was able to follow simple commands but after 10 minutes became agitated, tachypneic with desaturations. This has been the pattern for him and he has been unsuccessful at tolerating a spontaneous breathing trial on lower sedation. When he was sedated he has no wheezing and low peak airway pressures. Later in the day patient had a CT scan of the chest demonstrating minimal right upper lobe infiltrate, minimal left lower lobe greater than right lower lobe basilar infiltrate with no focal consolidations or evidence of emphysema. Empirically started on vancomycin and cefepime for possible pneumonia with fever, increased secretions and these minimal infiltrates. 07/31/2024: Patient remains intubated and sedated with fentanyl 200, propofol 50 and Precedex 1.5. he is on tidal volume of 450 with peak airway pressure is 20 and 60% with a PEEP of 8. ABG 7.45/38/92. White blood cell count 18.9, creatinine 0.75. He is afebrile. later in the day the patient was extubated and placed on Airvo 40 L and 40% FiO2. 08/01/2024: Patient remains extubated. He is still on low-dose Precedex. He does know his name and is place but is confused. Follow simple commands. Denies any respiratory distress. Currently he is on Airvo 40 L and 40% FiO2 saturations 98%. White blood cell count 24.7. Creatinine 0.89. Patient had a fever. Chest x-ray shows minimal atelectasis in the left base with otherwise clear lungs. ABG on CPAP 12 with 35% which he tolerated last night 7.08/02/24 Patient was seen and examined at bedside. He is feeling better. Alert and oriented x3 . His breathing improved. Currently on room air saturation 93%. Denies any chest pain, abdominal pain, nausea vomiting. he has upper and lower extremity weakness. Waiting for PT OT evaluation. Speech therapy evaluated patient plan for a swallow test today. Discussed with pulmonary team 08/03/24 Patient was seen and examined at bedside. He is tired after working with PT. Denies any chest pain, shortness off pressor. Complain of abdominal pain.. Last bowel movement few days ago. Intermittent fever. Patient is on cefepime. WBC improving. He passed swallow evaluation. We will continue to monitor. Discussed with Pulmonary team. 08/04/24 Patient was seen and examined at bedside. He is feeling better pretty this done good today. Denies any chest pain, shortness off breath, nausea vomiting. Had bowel movement today. Blood pressure 149/81. WBC 17.9, potassium 3.1, creatinine 0.95 DATA: 07/30/24: EXAMINATION:CT diagnostic chest wo con DATE: 07/30/2024 12:23 INDICATION: Acute respiratory failure. TECHNIQUE: Computed tomography (CT) of the chest was performed without intravenous contrast. Automated exposure control and iterative reconstruction technique were employed. The dose-length product (DLP) was 532.14 mGy-cm. COMPARISON: Chest CT 07/25/2024 FINDINGS: There are mild airspace opacities in right upper lobe. There are airspace opacities with volume loss involving the lower lobes, left worse than right. There is a 4 mm nodule in right upper lobe, likely benign. There is a trace left pleural effusion. The heart size is normal. There are coronary artery calcifications. No pericardial effusion. There is an endotracheal tube tip is in expected position. The nasogastric tube tip is in the stomach. A left upper extremity peripherally inserted central venous catheter (PICC) is seen with tip in the right atrium. There is a 4 mm stone in left kidney. There is severe cervical spondylosis and mild thoracic spondylosis. IMPRESSION: 1. Mild airspace opacities in right upper lobe, consistent with atelectasis versus pneumonia. 2. Airspace opacities in the lower lungs with volume loss, left worse than right, likely atelectasis. 07/25/2024: CT diagnostic chest wo con Ordering provider: Maggie Morales, NURSE EMERGENCY History: 68 years Male with . hypoxic . Comparison: None. Technique: CT chest without IV contrast. Radiation reduction technique utilized.The dose-length product was 390.57 mGy-cm. FINDINGS: VISUALIZED THORACIC INLET: Normal. Endotracheal tube is seen in the trachea with the tip at the jose. Nasogastric tube is seen with the tip in the distal stomach. MEDIASTINUM: Aorta/coronary arteries: Mild atheromatous disease. Heart/other: The heart is not enlarged. Lymph nodes: No mediastinal or hilar adenopathy. 1 cm paratracheal lymph node is seen. Precarinal lymph node is seen measuring 1.2 cm. Other smaller lymph nodes are seen LUNGS: Bilateral basal atelectatic changes with trace of effusion more on the right side. No pulmonary nodules or masses. No pneumothorax. VISUALIZED UPPER ABDOMEN: 5 mm stone in the left kidney upper pole. Otherwise, the visualized upper abdomen is normal. MUSCULOSKELETAL: Soft tissues: The superficial soft tissues are normal. Bones: Age appropriate degenerative changes of the spine. IMPRESSION: 1. Minimal bilateral basal atelectasis with minimal effusion. 2. Endotracheal tube with the tip at the jose. Retraction by 2 to 3 cm is advised. 3. Left kidney stone. * 04/04/2024; CXR;INDICATION: Chronic shortness of breath. TECHNIQUE: Frontal and lateral views of the chest were obtained. COMPARISON: Chest view 04/01/2024, chest CT 04/02/2024; FINDINGS: There is mild atelectasis at the lung bases. No pleural effusion or pneumothorax. The heart size is normal. IMPRESSION: 1. Mild atelectasis at the lung bases. * 04/04/2024 urine drug screen; negative for opiates, methadone, barbiturates, phencyclidine, amphetamine, benzodiazepines, cocaine, cannabinoids. * 04/03/2024; alpha-1 anti trypsin phenotype MM, normal. * 04/02/24 extended viral respiratory pathogen panel; adenovirus, rhinovirus/enterovirus, influenza A subtypes H1H3, influenza B, human metapneumovirus, RSV A/B, human parainfluenza 1/2/3. * 04/04/24; VQ scan: 04/04/2024 13:42 INDICATION: Chronic shortness of breath. TECHNIQUE: 7.9 mCi Xenon-133 was given for ventilation images. 5.4 mCi Tc-99m MAA was administered intravenously for perfusion images. Scintigraphic images of the chest were obtained. COMPARISON: Chest 2 views 04/04/2024, chest CT 04/02/2024; FINDINGS: The ventilation images demonstrate retention in the mid and lower lung zones. The perfusion images demonstrate small defects in the lower lobes. IMPRESSION: Low probability for pulmonary embolism. * 04/02/2024; echo;Definity contrast administered improved wall motion interpretation. 2. Left ventricular chamber dimension is normal. 3. Left ventricular systolic function is normal, estimated at 65-70%. 4. The left ventricular diastolic function is grade I diastolic dysfunction. 5. E/e' 7 is not elevated. 6. Left atrial chamber dimension is mildly enlarged. * 04/01/2024 CTA ; There is mild scarring at the lung apices. There is a 3 mm nodule in right upper lobe, likely benign. There is mild atelectasis bilaterally. There is mucous plugging in the lower lobes. No pleural effusion. The heart size is normal. No pericardial effusion. There are coronary artery calcifications. There is no pericardial effusion. There is no pulmonary embolus. There is severe cervical and thoracic spondylosis. IMPRESSION: No pulmonary embolus. * He had negative MRSA swab, viral swabs for influenza A/B, RSV, SARS-CoV-2. Review of Systems Review of Systems: All systems reviewed & are unremarkable except as noted in HPI and below (HPI) ROS unobtainable: Yes unobtainable due to endotracheal tube, unobtainable due to medical condition and unobtainable due to mental status Exam Narrative: General: Pt is alert awake and in no distress Lungs/Chest: Trachea central nol wheezing, Improved overall air movement, no wheezing Cardiac: RRR. Normal S1 S2. No murmurs Circulation: Pedal pulses are intact and symmetrical. Abdomen: Decreased bowel sounds. Obese. Soft. NT. ND. Extremities: No clubbing, cyanosis or edema. Warm : Garcia in place Neurologic: AO x3 , follows commands all 4 extremities. PERRL. Decreased range of motion of bilateral upper and lower extremity Const: General: in distress and uncomfortable Other: , male, ill-appearing, significant respiratory distress HENMT: Face/Nose/Sinus: Normal nares present Mouth: Yes dry mucous membranes Eyes: General: appearance normal, both eyes and all related structures Sclera: sclerae normal Pupils: Equal, round and reactive pupils present EOM: EOMs intact bilaterally Resp: Other: No crackles or rhonchi. Cardio: Rate: tachycardic Rhythm: regular rhythm Other: S1-S2 present without murmur, rub, ectopy GI: Other: Abdomen soft, nondistended, nontender. Normoactive bowel sounds in all quadrants. Skin: General skin exam: normal color and no rashes or lesions noted Wounds: no wounds Neuro: Cranial nerves: Yes Equal, round and reactive pupils present Speech: normal speech Motor exam (neuro): 5/5 motor strength present throughout and Abnormal motor strength present Sensory Exam: normal sensation Other: A&O x4. Extrem: General: normal to inspection Psych: Mental Status: mental status grossly normal Affect: normal affect Other: Good insight and judgment, pleasant Objective Data Vital Signs Vital Signs: Vital Signs - 24 hr 08/03/24 09:00 08/03/24 09:00 08/03/24 09:02 Temperature Pulse Rate 102 H 102 H Respiratory Rate 18 Blood Pressure 166/73 H Pulse Oximetry 95 95 Oxygen Delivery Room Air Fraction of Inspired Oxygen 08/03/24 14:00 08/03/24 18:00 08/03/24 20:00 Temperature 98.0 F Pulse Rate 97 94 96 Respiratory Rate 22 H 22 H Blood Pressure 167/83 H 158/74 H Pulse Oximetry 93 93 Oxygen Delivery Room Air Fraction of Inspired Oxygen 21 08/03/24 20:44 08/03/24 22:00 08/03/24 22:45 Temperature 97.9 F Pulse Rate 96 96 96 Respiratory Rate 18 Blood Pressure 169/94 H Pulse Oximetry 93 93 Oxygen Delivery Fraction of Inspired Oxygen 08/04/24 03:00 08/04/24 06:00 Temperature 98.1 F Pulse Rate 90 Respiratory Rate 18 Blood Pressure 149/81 H Pulse Oximetry 93 96 Oxygen Delivery Fraction of Inspired Oxygen Intake/Output Intake/Output: Intake & Output 08/01/24 08/02/24 08/03/24 08/04/24 23:59 23:59 23:59 23:59 Intake Total 219.9 270 1000 50 Output Total 1250 1250 1000 800 Balance -1030.1 -980 0 -750 Meds/Results Medications: Active Medications Generic Name Dose Route Start Last Admin Trade Name Freq PRN Reason Stop Dose Admin Acetaminophen 650 mg 07/25/24 19:51 08/01/24 04:07 Acetaminophen Elixir 325 Mg/10.15 Ml Udc PO 650 mg Q6H PRN Administration Mild Pain (1-3) or Fever Albuterol/Ipratropium 3 ml 07/31/24 10:36 Ipratropium 0.5 Mg/Albuterol Sulfate 2.5 Mg Ampul.Neb 3 Ml INHALATION Q6HRT PRN Wheezing Alprazolam 1 mg 08/01/24 08:30 08/03/24 20:44 Alprazolam (*Crx) 0.5 Mg Tablet PO 1 mg TID PRN Administration Anxiety Amlodipine Besylate 10 mg 08/03/24 12:00 08/03/24 13:17 Amlodipine Besylate 10 Mg Tablet PO 10 mg DAILY JOSEMANUEL Administration Atorvastatin Calcium 40 mg 07/27/24 09:00 08/03/24 09:02 Atorvastatin 40 Mg Tablet PO 40 mg DAILY JOSEMANUEL Administration Dextrose 12.5 gm 07/27/24 12:28 Dextrose 50% 25 Gm/50 Ml Syringe IV PUSH PRN PRN Hypoglycemia Protocol Enoxaparin Sodium 40 mg 07/26/24 09:00 08/03/24 09:03 Enoxaparin 40 Mg/0.4 Ml Syringe SUB-Q 40 mg DAILY JOSEMANUEL Administration Fluticasone/Umeclidinium/Vilanterol 1 puff 08/01/24 08:00 08/03/24 12:05 Fluticasone/Umeclidin/Vilanter 100-62.5-25 Mcg Ellipta INHALATION 1 puff DAILYRT JOSEMANUEL Administration Glucagon 1 mg 07/27/24 12:28 Glucagon For Inj 1 Mg Vial IM PRN PRN Hypoglycemia Protocol Glucose 15 gm 07/27/24 12:28 Glucose Oral Gel 15 Gm Of Glucse In 37.5 Gm Tube PO PRN PRN Hypoglycemia Protocol Hydralazine HCl 10 mg 07/25/24 19:41 08/01/24 13:28 Hydralazine Hcl 20 Mg/Ml Vial IV PUSH 10 mg Q8H PRN Administration BP greater than 180/90 Hydrochlorothiazide 12.5 mg 08/02/24 09:00 08/03/24 09:02 Hydrochlorothiazide 12.5 Mg Capsule PO 12.5 mg QAM JOSEMANUEL Administration Dextrose 1,000 mls @ 100 mls/hr 07/27/24 12:28 Dextrose 5% 1,000 Ml IVPB PRN PRN Hypoglycemia Protocol Cefepime HCl 2 gm in 50 mls @ 100 mls/hr 07/30/24 15:00 08/04/24 02:40 Maxipime 2 Gm/Ns 50 Ml IVPB 08/05/24 23:59 Infused Q12H JOSEMANUEL Infusion Labetalol HCl 20 mg 07/31/24 10:33 08/02/24 15:41 Labetalol Hcl Inj 100 Mg/20 Ml Vial IV PUSH 20 mg Q4H PRN Administration SBP > 160 and HR> 60 -1st choice Loratadine 10 mg 07/26/24 09:51 08/03/24 09:02 Loratadine 10 Mg Tablet FEED TUBE 10 mg QAM JOSEMANUEL Administration Metoprolol Tartrate 25 mg 08/01/24 09:15 08/03/24 20:44 Metoprolol Tartrate 25 Mg Tablet PO 25 mg Q12HR JOSEMANUEL Administration Montelukast Sodium 10 mg 07/26/24 21:00 08/03/24 20:44 Montelukast Sodium 10 Mg Tablet PO 10 mg QHS JOSEMANUEL Administration Pantoprazole Sodium 40 mg 08/01/24 09:00 08/03/24 09:02 Pantoprazole 40 Mg Tablet PO 40 mg QAM JOSEMANUEL Administration Polyethylene Glycol 17 gm 08/03/24 12:50 08/03/24 13:17 Polyethylene Glycol 3350 17 Gm Powd.Pack PO 17 gm QAM PRN Administration Constipation Senna/Docusate Sodium 1 tab 08/03/24 12:50 08/03/24 13:17 Senna/Docusate Sodium Tablet PO 1 tab DAILY PRN Administration Constipation Sodium Chloride 20 ml 07/26/24 10:36 08/04/24 05:42 Central Line Flush IV PUSH 20 ml PRN PRN Administration after blood draws Sodium Chloride 10 ml 07/26/24 10:36 Central Line Flush IV PUSH PRN PRN with TPN bag changes Sodium Chloride 10 ml 07/26/24 14:00 08/04/24 05:42 Central Line Flush IV PUSH 10 ml Q8HR JOSEMANUEL Administration Radiology Results: ITS Impressions Abdomen X-Ray 07/25/24 16:47 IMPRESSION: 1. Endotracheal tube tip 1 cm above the jose. 2. No acute cardiopulmonary disease. 3. Nasogastric tube extends into the stomach with distal tip projecting near the level of the gastroesophageal junction. Unclear with only AP projections tube extends back into the gastroesophageal junction were positioned more anteriorly in the body but superimposed over the gastroesophageal junction. Consider obtaining an oblique or crosstable lateral view for more definitive determination. Renal Ultrasound 07/27/24 14:10 IMPRESSION: 1. Normal kidneys without hydronephrosis. Chest CT 07/30/24 13:27 IMPRESSION: 1. Mild airspace opacities in right upper lobe, consistent with atelectasis versus pneumonia. 2. Airspace opacities in the lower lungs with volume loss, left worse than right, likely atelectasis. Chest X-Ray 08/01/24 06:20 Impression: Discoid left basilar atelectasis or scarring, otherwise clear lungs. Left-sided PICC line. Modified Barium Swallow 08/02/24 12:06 IMPRESSION: 1 episode of possible trace laryngeal penetration without aspiration. Please correlate with speech pathologist findings and specific feeding recommendations. Labs Labs: Laboratory Results - last 24 hr 08/04/24 05:30 WBC 17.9 H RBC 4.11 L Hgb 12.9 L Hct 38.1 L MCV 92.7 MCH 31.4 MCHC 33.9 RDW 12.6 Plt Count 241 MPV 9.7 Sodium 138 Potassium 3.1 L Chloride 105 Carbon Dioxide 26 Anion Gap 7 BUN 23 H Creatinine 0.95 Estim Creat Clear Calc 70 Estimated GFR > 60 Glucose 108 Calcium 8.3 L Quality VTE Prophylaxis VTE prophylaxis: pharmacologic ordered
[2024-08-04] MEDS: ATORVASTATIN 40 MG TABLET PO (09:09)
[2024-08-04] MEDS: hydroCHLOROthiazide 12.5 MG CAPSULE PO (09:09)
[2024-08-04] MEDS: PANTOPRAZOLE 40 MG TABLET PO (09:09)
[2024-08-04] MEDS: amLODIPine BESYLATE 10 MG TABLET PO (09:09)
[2024-08-04] MEDS: METOPROLOL TARTRATE 25 MG TABLET PO ×2 (09:09→21:56)
[2024-08-04] MEDS: POTASSIUM CHLORIDE 20 MEQ ER TABLET 40 MEQ PO (09:09)
[2024-08-04] MEDS: LORATADINE 10 MG TABLET FEED TUBE (09:10)
[2024-08-04] MEDS: ENOXAPARIN 40 MG/0.4 ML SYRINGE SUB-Q (09:10)
[2024-08-04] MEDS: FLUTICASONE/UMECLIDIN/VILANTER 100-62.5-25 MCG ELLIPTA 1 PUFF INHALATION (09:30)
--- NOTE | 2024-08-04 16:16 | P.PNPL_ITS ---
Progress Note: A&P Assessment and Plan (1) Status asthmaticus: Code(s): J45.902 - Unspecified asthma with status asthmaticus Status: Acute Assessment and Plan: This 68-year-old man, with normal pulmonary function testing measured 4 months ago, had had frequent coughing and wheezing, with three previous hospitalizations for obstructive airway disease over the last few months. He presented with a several-day history of progressively increasing shortness of breath and coughing. The patient?s clinical history of obstructive airway disease, combined with diagnostic studies showing eosinophilia and significant improvement with oral steroid regimens following each hospitalization, suggests uncontrolled eosinophilic asthma. COVID, influenza, RSV negative RT PCR study on 07/25/2024. The day of admission patient was exposed to inhalation of dust while he was doing yard work. The current presentation is typical for status asthmaticus, as the patient exhibited respiratory alkalosis, did not respond to bronchodilators administered in the ER, and progressed to metabolic and respiratory acidosis. Following intubation, the patient was fully sedated and paralyzed due to difficulties encountered by the flour worker in ventilating him. Yesterday, a review of respiratory mechanics while the patient was passively ventilated showed a total respiratory resistance of 20 cm/L/sec, which is mildly elevated, and an expiratory time constant of 0.64 seconds, which is in the normal range. There was no auto PEEP. His chest CT shows mild atelectasis at the bases posteriorly and small pleural effusions, with no evidence of lower respiratory tract infection. 07/27/2024: Sputum Gram stain no epithelial cells, few Gram-positive cocci, growth of normal shefali. 07/29/24: Over the past 24 hours, the patient's respiratory status has remained stable while being fully sedated and paralyzed on mechanical ventilation. The patient did not successfully complete the weaning trial yesterday. This morning, while still sedated and paralyzed on mechanical ventilation, respiratory mechanics indicated an inspiratory resistance of 14, static compliance of 36, and an expiratory time constant of 0.53, with a peak inspiratory pressure of 22 while receiving a tidal volume of 450 mL and 8 cm of PEEP. These values are essentially normal. The physical examination revealed no wheezing. A chest X-ray showed a possible left lower lobe infiltrate or small effusion. Agitation appears to be the limiting factor for weaning. Considering the significant improvement in respiratory mechanics and the absence of wheezing on physical examination, the IV steroid dose has been reduced to once daily. A sputum culture will be ordered to investigate the possibility of left lower lobe pneumonia. The patient is not currently on antibiotics. The case was discussed with the flour worker, and another weaning trial is planned for today. 07/30/24: patient remains sedated with propofol, Precedex and p.r.n. Versed. On turning down the propofol and Precedex the patient was able to follow simple commands but after 10 minutes became agitated, tachypneic with desaturations. This has been the pattern for him and he has been unsuccessful at tolerating a spontaneous breathing trial on lower sedation. When he was sedated he has no wheezing and low peak airway pressures. Plan: Recommend decreasing Solu-Medrol to 30 mg IV q.day, today is day 6 of systemic steroids. Continue DuoNebs q.6 hours. I will discontinue trilogy as he is high dose beta agonist and muscarinic antagonist with the DuoNebs and he is on systemic steroids. Continue montelukast 10. Chest x-ray with possible left lower lobe infiltrate and agree with CT scan to fully assess for possible pneumonia. Procalcitonin is 0.2. Repeat sputum Gram stain from 07/29/2024 with rare epithelial cells, rare white blood cells and a few mixed bacterial shefali. Cultures pending. When the patient is sedated he has no wheezing and his peak airway pressures are low indicating the absence of bronchospasm. I suspect his asthma and possible COPD have been treated adequately with 6 days of steroids and bronchodilators. It is unlikely that the patient will be able to tolerate decreasing his sedation for an acceptable spontaneous breathing trial and will likely need to decrease his sedation and proceed straight to extubation. Later in the day patient had a CT scan of the chest demonstrating minimal right upper lobe infiltrate, minimal left lower lobe greater than right lower lobe basilar infiltrate with no focal consolidations or evidence of emphysema. Empirically started on vancomycin and cefepime for possible pneumonia with fever, increased secretions and these minimal infiltrates. 07/31/2024: Patient remains intubated and sedated with fentanyl 200, propofol 50 and Precedex 1.5. he is on tidal volume of 450 with peak airway pressure is 20 and 60% with a PEEP of 8. ABG 7.45/38/92. White blood cell count 18.9, creatinine 0.75. He is afebrile. Plan: Patient on Solu-Medrol 30 mg IV q.day, day 7 of systemic steroids. DuoNebs q.6 hours. Montelukast 10. I will add budesonide 500 mcg b.i.d. and plan to decrease Solu-Medrol to 20 q.day starting 08/01/2024. agree with vancomycin and cefepime for possible pneumonia, both day 2. Agree with plan to decrease his sedation and once he can follow simple commands proceed straight to extubation as he has been unable to tolerate being on lower dose of sedation for a spontaneous breathing trial. 08/01/2024: Patient remains extubated. He is still on low-dose Precedex. He does know his name and is place but is confused. Follow simple commands. Denies any respiratory distress. Currently he is on Airvo 40 L and 40% FiO2 saturations 98%. White blood cell count 24.7. Creatinine 0.89. Patient had a fever. Chest x-ray shows minimal atelectasis in the left base with otherwise clear lungs. ABG on CPAP 12 with 35% which he tolerated last night 7. Plan: Patient extubated and in no respiratory distress. His albuterol and ipratropium nebulizers are on hold because of his tachycardia. He is on nebulized budesonide. He received last dose of Solu-Medrol 20 mg IV this morning, day 8 of steroids. Continue montelukast 10. Remains on cefepime and vancomycin day 3. 08/02/2024: Patient transferred out of the ICU. He is in no respiratory distress on room air with saturations 95%. He tells me his name, [facility] and 2024 but does not know date or month. Knows [facility] is the [facility] follow simple commands. States he is breathing normally. Denies pain. Remains febrile. White blood cell count 23.9. Creatinine 0.99. To have a Swallow study today. no wheezing on exam. Plan: Patient without wheezing on Trelegy 100. I will discontinue nebulized budesonide. Continue montelukast 10. Remains on cefepime and vancomycin day 4. He remains febrile. I do not think he has a respiratory condition that is causing his fever and recommend looking for alternative etiologies of his fever. 08/03/24: Patient is sitting up in a chair. He walked 5 ft to get to the chair. He is on room air with saturations 96%. Overall patient states he is breathing normally. His cough is improved with minimal phlegm, no hemoptysis. Intermittently has sneezing and hiccups. Patient had a fever last night but overall his fever curve is decreased. White blood cell count 17.7, creatinine 0.93. No wheezing on exam. Plan: Patient currently states he is breathing normally and has no wheezing on exam. He is on Trelegy 100. Continue montelukast 10 and Claritin 10. Patient is on cefepime day 5 for possible pneumonia. Patient was scheduled to see [facility] on 08/10/2024 for evaluation for a biol ogic for his eosinophilic asthma. 08/04/24: He feels better, not completely normal. His is at the bedside. Exam is normal as far as no wheezing. He is on room air, 96-97%. (2) Obstructive sleep apnea: Code(s): G47.33 - Obstructive sleep apnea (adult) (pediatric) Status: Acute Assessment and Plan: ENT ordered repeat split night study Dec 2022= AHI 8.4, karen 86%, optimal pressure 12 cm. 07/04/2024: outpatient pulmonary office visit Plan: He has JEISON, has been on PAP for years, had a repeat study Fall 2022 ordered by ENT office, would prefer to come here for sleep and breathing issues. He has a CPAP machine, he needs filters, needs new reservoir, tubing, masks. I have no download to review today. 07/30/2024: currently patient is intubated for his asthma exacerbation. 07/31/24: Once patient is Successfully extubated will place on CPAP 12 at night. will attempt to obtain download from his [employer] company which we think is [facility]. 08/01/2024: Patient tolerated hospital CPAP 12 with 35% FiO2. Plan: Spoke with the she will attempt to bring the patient's home CPAP [address] place him on his home machine with 3 L bleed in tonight. We contacted [facility] his DME and he has had no recent contact with them and they have no recent downloads. 08/02/24: Patient was not able to tolerate his home unit last night. Plan: Patient's mental status and anxiety or prevented him from using his home unit. Will try again tonight. 08/03/24: Last night the helped him with his home CPAP 11 and he wore this for about 1 hour and then felt claustrophobic and requested to be taken off. Plan: Recommended to who helps him to try to wear his CPAP during the day for desensitization and continue to try to use at night. 08/04/24: Continue CPAP 11 cm with sleep. (3) Urticaria: Code(s): L50.9 - Urticaria, unspecified Status: Acute Assessment and Plan: seen by Allergy and immunology on 04/17/2024 For hives for 1 year: Plan was to start cetirizine 10 mg twice a day, famotidine 40 mg twice a day and montelukast 10 mg q.h.s.. 07/30/24: No hives on Solu-Medrol 30 mg q.a.m., montelukast 10, Claritin 10 q.day. will follow. 07/31/2024: No hives on Solu-Medrol 20, montelukast 10 and Claritin 10. 08/01/24: No hives on montelukast 10, last dose of Solu-Medrol 20 this morning and Claritin 10. Will follow. 08/02/24: Currently patient off systemic steroids and on montelukast 10 and Claritin 10 with no hives. 08/03/24: Continue montelukast 10 and Claritin 10. 08/04/24: No change in current medications. Subjective Date/time seen: 08/04/24 16:16 Interval history: Chief complaint: COPD exacerbation Narrative: This is a consultation for a patient with respiratory failure who is currently intubated and fully sedated on mechanical ventilation. This report is based on information obtained from the patient's electronic chart and from the patient's , who was at the bedside. Reportedly, the patient was diagnosed with asthma, and this is the fourth hospitalization for shortness of breath and cough. According to his , the patient's respiratory problems began last August following a COVID-19 infection. In December of last year, while camping in [place], the patient developed a cough with progressively worsening shortness of breath. According to his , he was treated for obstructive airway disease. Since then, the patient has been hospitalized with similar symptoms on two more occasions: once in March at [facility] and again at [facility], where he stayed for 4 to 5 days. His diagnosis was COPD versus asthma, and the patient had been on a Trelegy inhaler and short-acting bronchodilators. After each hospitalization, he received an oral steroid regimen, which led to significant improvement for weeks, but his cough would typically return weeks after stopping the steroids. This hospitalization was prompted by a cough that became progressively worse and shortness of breath since last Tuesday. He had no other respiratory symptoms such as fever, chest pain, orthopnea, or lower extremity edema. Upon evaluation in the emergency room, initial arterial blood gases showed respiratory alkalosis. The patient was treated with nebulized short-acting bronchodilators and BiPAP support. According to ER reports, the patient became somnolent and appeared tired, and because of worsening arterial blood gases, he was intubated. Repeat arterial blood gases in the emergency room showed rising pCO2 and the development of a metabolic component, with a pH of 7.21 and pCO2 of 54 mmHg, consistent with combined respiratory and metabolic acidosis. The patient was transferred to the intensive care unit, where he is currently fully sedated and paralyzed on mechanical ventilation, receiving a tidal volume of 450 mL, total respirations of 18 (all passive), PEEP of 5 cm H2O, and FiO2 of 40%. His chest CT showed mild basal atelectasis and very small pleural effusions bilaterally. Currently, the patient is being treated for obstructive airway disease with IV steroids and nebulized short-acting bronchodilators. His eosinophil count was elevated to over 1800, and previous CBCs showed that eosinophils were similarly elevated on at least three occasions since 2021. A pulmonary function test in April of last year showed essentially normal results. 07/27/24: Patient remains intubated fully sedated and paralyzed on same ventilator settings. 07/28/24: Patient was seen early the morning when his sedative medications were discontinued and the patient was about to go on weaning trial. No new respiratory events over the last 24 hours while the patient was still on sedative paralyzing medications. He has been hemodynamically stable and has been afebrile. 07/29/24: Patient remains sedated on mechanical ventilation. Reportedly failed weaning trial yesterday. Afebrile while on tidal volume 450 peep of 8 and FiO2 45%. 07/30/24: patient remains sedated with propofol, Precedex and p.r.n. Versed. On turning down the propofol and Precedex the patient was able to follow simple commands but after 10 minutes became agitated, tachypneic with desaturations. This has been the pattern for him and he has been unsuccessful at tolerating a spontaneous breathing trial on lower sedation. When he was sedated he has no wheezing and low peak airway pressures. Later in the day patient had a CT scan of the chest demonstrating minimal right upper lobe infiltrate, minimal left lower lobe greater than right lower lobe basilar infiltrate with no focal consolidations or evidence of emphysema. Empirically started on vancomycin and cefepime for possible pneumonia with fever, increased secretions and these minimal infiltrates. 07/31/2024: Patient remains intubated and sedated with fentanyl 200, propofol 50 and Precedex 1.5. he is on tidal volume of 450 with peak airway pressure is 20 and 60% with a PEEP of 8. ABG 7.45/38/92. White blood cell count 18.9, creatinine 0.75. He is afebrile. later in the day the patient was extubated and placed on Airvo 40 L and 40% FiO2. 08/01/2024: Patient remains extubated. He is still on low-dose Precedex. He does know his name and is place but is confused. Follow simple commands. Denies any respiratory distress. Currently he is on Airvo 40 L and 40% FiO2 saturations 98%. White blood cell count 24.7. Creatinine 0.89. Patient had a fever. Chest x-ray shows minimal atelectasis in the left base with otherwise clear lungs. ABG on CPAP 12 with 35% which he tolerated last night 7.08/02/2024: Patient transferred out of the ICU. He is in no respiratory distress on room air with saturations 95%. He tells me his name, [facility] and 2024 but does not know date or month. Knows [facility] is the [facility] follow simple commands. States he is breathing normally. Denies pain. Remains febrile. White blood cell count 23.9. Creatinine 0.99. To have a Swallow study today. no wheezing on exam. Later in the day passed his swallow study with recommendation for regular diet and regular liquids. 08/03/24: Patient is sitting up in a chair. He walked 5 ft to get to the chair. He is on room air with saturations 96%. Overall patient states he is breathing normally. His cough is improved with minimal phlegm, no hemoptysis. Intermittently has sneezing and hiccups. Patient had a fever last night but overall his fever curve is decreased. White blood cell count 17.7, creatinine 0.93. Last night the helped him with his home CPAP 11 and he wore this for about 1 hour and then felt claustrophobic and requested to be taken off. No wheezing on exam. 08/04/2024: He feels better, not completely normal. His is at the bedside. Has some expiratory wheezes posteriorly. He has appt at [facility], needs to keep the appointment. DATA: 07/30/24: EXAMINATION:CT diagnostic chest wo con DATE: 07/30/2024 12:23 INDICATION: Acute respiratory failure. TECHNIQUE: Computed tomography (CT) of the chest was performed without intravenous contrast. Automated exposure control and iterative reconstruction technique were employed. The dose-length product (DLP) was 532.14 mGy-cm. COMPARISON: Chest CT 07/25/2024 FINDINGS: There are mild airspace opacities in right upper lobe. There are airspace opacities with volume loss involving the lower lobes, left worse than right. There is a 4 mm nodule in right upper lobe, likely benign. There is a trace left pleural effusion. The heart size is normal. There are coronary artery calcifications. No pericardial effusion. There is an endotracheal tube tip is in expected position. The nasogastric tube tip is in the stomach. A left upper extremity peripherally inserted central venous catheter (PICC) is seen with tip in the right atrium. There is a 4 mm stone in left kidney. There is severe cervical spondylosis and mild thoracic spondylosis. IMPRESSION: 1. Mild airspace opacities in right upper lobe, consistent with atelectasis versus pneumonia. 2. Airspace opacities in the lower lungs with volume loss, left worse than right, likely atelectasis. 07/25/2024: CT diagnostic chest wo con Ordering provider: Maggie Morales APRN History: 68 years Male with . hypoxic . Comparison: None. Technique: CT chest without IV contrast. Radiation reduction technique utilized.The dose-length product was 390.57 mGy- cm. FINDINGS: VISUALIZED THORACIC INLET: Normal. Endotracheal tube is seen in the trachea with the tip at the jose. Nasogastric tube is seen with the tip in the distal stomach. MEDIASTINUM: Aorta/coronary arteries: Mild atheromatous disease. Heart/other: The heart is not enlarged. Lymph nodes: No mediastinal or hilar adenopathy. 1 cm paratracheal lymph node is seen. Precarinal lymph node is seen measuring 1.2 cm. Other smaller lymph nodes are seen LUNGS: Bilateral basal atelectatic changes with trace of effusion more on the right side. No pulmonary nodules or masses. No pneumothorax. VISUALIZED UPPER ABDOMEN: 5 mm stone in the left kidney upper pole. Otherwise, the visualized upper abdomen is normal. MUSCULOSKELETAL: Soft tissues: The superficial soft tissues are normal. Bones: Age appropriate degenerative changes of the spine. IMPRESSION: 1. Minimal bilateral basal atelectasis with minimal effusion. 2. Endotracheal tube with the tip at the jose. Retraction by 2 to 3 cm is advised. 3. Left kidney stone. * 04/04/2024; CXR;INDICATION: Chronic shortness of breath. TECHNIQUE: Frontal and lateral views of the chest were obtained. COMPARISON: Chest view 04/01/2024, chest CT 04/02/2024; FINDINGS: There is mild atelectasis at the lung bases. No pleural effusion or pneumothorax. The heart size is normal. IMPRESSION: 1. Mild atelectasis at the lung bases. * 04/04/2024 urine drug screen; negative for opiates, methadone, barbiturates, phencyclidine, amphetamine, benzodiazepines, cocaine, cannabinoids. * 04/03/2024; alpha-1 anti trypsin phenotype MM, normal. * 04/02/24 extended viral respiratory pathogen panel; adenovirus, rhinovirus/enterovirus, influenza A subtypes H1H3, influenza B, human metapneumovirus, RSV A/B, human parainfluenza 1/2/3. * 04/04/24; VQ scan: 04/04/2024 13:42 INDICATION: Chronic shortness of breath. TECHNIQUE: 7.9 mCi Xenon-133 was given for ventilation images. 5.4 mCi Tc-99m MAA was administered intravenously for perfusion images. Scintigraphic images of the chest were obtained. COMPARISON: Chest 2 views 04/04/2024, chest CT 04/02/2024; FINDINGS: The ventilation images demonstrate retention in the mid and lower lung zones. The perfusion images demonstrate small defects in the lower lobes. IMPRESSION: Low probability for pulmonary embolism. * 04/02/2024; echo;Definity contrast administered improved wall motion interpretation. 2. Left ventricular chamber dimension is normal. 3. Left ventricular systolic function is normal, estimated at 65-70%. 4. The left ventricular diastolic function is grade I diastolic dysfunction. 5. E/e' 7 is not elevated. 6. Left atrial chamber dimension is mildly enlarged. * 04/01/2024 CTA ; There is mild scarring at the lung apices. There is a 3 mm nodule in right upper lobe, likely benign. There is mild atelectasis bilaterally. There is mucous plugging in the lower lobes. No pleural effusion. The heart size is normal. No pericardial effusion. There are coronary artery calcifications. There is no pericardial effusion. There is no pulmonary embolus. There is severe cervical and thoracic spondylosis. IMPRESSION: No pulmonary embolus. * He had negative MRSA swab, viral swabs for influenza A/B, RSV, SARS-CoV-2. Review of Systems Review of Systems: All systems reviewed & are unremarkable except as noted in HPI and below Exam Narrative: GEN: Alert, oriented, not in distress. Saturation 93-97% on room air. HEENT: pupils are equal, EOMI, symmetrical face; oral membranes moist CHEST: Equal air entry, symmetric excursion, clear breath sounds CV: Regular S1S2 no m/g/r Extremities : no clubbing, cyanosis, edema PSYCH: normal thought and speech Objective Data Vital Signs Vital Signs: Vital Signs - 24 hr 08/03/24 18:00 08/03/24 20:00 08/03/24 20:44 Temperature Pulse Rate 94 96 96 Respiratory Rate 22 H Blood Pressure 158/74 H Pulse Oximetry 93 Oxygen Delivery Room Air Fraction of Inspired Oxygen 21 08/03/24 22:00 08/03/24 22:45 08/04/24 03:00 Temperature 36.6 C Pulse Rate 96 96 Respiratory Rate 18 Blood Pressure 169/94 H Pulse Oximetry 93 93 93 Oxygen Delivery Fraction of Inspired Oxygen 08/04/24 06:00 08/04/24 08:21 08/04/24 09:09 Temperature 36.7 C Pulse Rate 90 90 Respiratory Rate 18 Blood Pressure 149/81 H Pulse Oximetry 96 Oxygen Delivery CPAP Fraction of Inspired Oxygen 21 08/04/24 09:10 08/04/24 09:30 08/04/24 09:30 Temperature Pulse Rate 107 H Respiratory Rate 20 Blood Pressure Pulse Oximetry 94 Oxygen Delivery Room Air Room Air Fraction of Inspired Oxygen 08/04/24 14:00 Temperature 36.6 C Pulse Rate 95 Respiratory Rate 16 Blood Pressure 140/81 Pulse Oximetry 97 Oxygen Delivery Fraction of Inspired Oxygen Intake/Output Intake/Output: Intake & Output 08/01/24 08/02/24 08/03/24 08/04/24 23:59 23:59 23:59 23:59 Intake Total 219.9 270 1000 50 Output Total 1250 1250 1000 800 Balance -1030.1 -980 0 -750 Meds/Results Medications: Active Medications Generic Name Dose Route Start Last Admin Trade Name Freq PRN Reason Stop Dose Admin Acetaminophen 650 mg 07/25/24 19:51 08/01/24 04:07 Acetaminophen Elixir 325 Mg/10.15 Ml Udc PO 650 mg Q6H PRN Administration Mild Pain (1-3) or Fever Albuterol/Ipratropium 3 ml 07/31/24 10:36 Ipratropium 0.5 Mg/Albuterol Sulfate 2.5 Mg Ampul.Neb 3 Ml INHALATION Q6HRT PRN Wheezing Alprazolam 1 mg 08/01/24 08:30 08/03/24 20:44 Alprazolam (*Crx) 0.5 Mg Tablet PO 1 mg TID PRN Administration Anxiety Amlodipine Besylate 10 mg 08/03/24 12:00 08/04/24 09:09 Amlodipine Besylate 10 Mg Tablet PO 10 mg DAILY JOSEMANUEL Administration Atorvastatin Calcium 40 mg 07/27/24 09:00 08/04/24 09:09 Atorvastatin 40 Mg Tablet PO 40 mg DAILY JOSEMANUEL Administration Dextrose 12.5 gm 07/27/24 12:28 Dextrose 50% 25 Gm/50 Ml Syringe IV PUSH PRN PRN Hypoglycemia Protocol Enoxaparin Sodium 40 mg 07/26/24 09:00 08/04/24 09:10 Enoxaparin 40 Mg/0.4 Ml Syringe SUB-Q 40 mg DAILY JOSEMANUEL Administration Fluticasone/Umeclidinium/Vilanterol 1 puff 08/01/24 08:00 08/04/24 09:30 Fluticasone/Umeclidin/Vilanter 100-62.5-25 Mcg Ellipta INHALATION 1 puff DAILYRT JOSEMANUEL Administration Glucagon 1 mg 07/27/24 12:28 Glucagon For Inj 1 Mg Vial IM PRN PRN Hypoglycemia Protocol Glucose 15 gm 07/27/24 12:28 Glucose Oral Gel 15 Gm Of Glucse In 37.5 Gm Tube PO PRN PRN Hypoglycemia Protocol Hydralazine HCl 10 mg 07/25/24 19:41 08/01/24 13:28 Hydralazine Hcl 20 Mg/Ml Vial IV PUSH 10 mg Q8H PRN Administration BP greater than 180/90 Hydrochlorothiazide 12.5 mg 08/02/24 09:00 08/04/24 09:09 Hydrochlorothiazide 12.5 Mg Capsule PO 12.5 mg QAM JOSEMANUEL Administration Dextrose 1,000 mls @ 100 mls/hr 07/27/24 12:28 Dextrose 5% 1,000 Ml IVPB PRN PRN Hypoglycemia Protocol Cefepime HCl 2 gm in 50 mls @ 100 mls/hr 07/30/24 15:00 08/04/24 15:25 Maxipime 2 Gm/Ns 50 Ml IVPB 08/05/24 23:59 100 mls/hr Q12H JOSEMANUEL Administration Labetalol HCl 20 mg 07/31/24 10:33 08/02/24 15:41 Labetalol Hcl Inj 100 Mg/20 Ml Vial IV PUSH 20 mg Q4H PRN Administration SBP > 160 and HR> 60 -1st choice Loratadine 10 mg 07/26/24 09:51 08/04/24 09:10 Loratadine 10 Mg Tablet FEED TUBE 10 mg QAM JOSEMANUEL Administration Metoprolol Tartrate 25 mg 08/01/24 09:15 08/04/24 09:09 Metoprolol Tartrate 25 Mg Tablet PO 25 mg Q12HR JOSEMANUEL Administration Montelukast Sodium 10 mg 07/26/24 21:00 08/03/24 20:44 Montelukast Sodium 10 Mg Tablet PO 10 mg QHS JOSEMANUEL Administration Pantoprazole Sodium 40 mg 08/01/24 09:00 08/04/24 09:09 Pantoprazole 40 Mg Tablet PO 40 mg QAM JOSEMANUEL Administration Polyethylene Glycol 17 gm 08/03/24 12:50 08/03/24 13:17 Polyethylene Glycol 3350 17 Gm Powd.Pack PO 17 gm QAM PRN Administration Constipation Senna/Docusate Sodium 1 tab 08/03/24 12:50 08/03/24 13:17 Senna/Docusate Sodium Tablet PO 1 tab DAILY PRN Administration Constipation Sodium Chloride 20 ml 07/26/24 10:36 08/04/24 05:42 Central Line Flush IV PUSH 20 ml PRN PRN Administration after blood draws Sodium Chloride 10 ml 07/26/24 10:36 Central Line Flush IV PUSH PRN PRN with TPN bag changes Sodium Chloride 10 ml 07/26/24 14:00 08/04/24 15:25 Central Line Flush IV PUSH 10 ml Q8HR JOSEMANUEL Administration Radiology Results: ITS Impressions Abdomen X-Ray 07/25/24 16:47 IMPRESSION: 1. Endotracheal tube tip 1 cm above the jose. 2. No acute cardiopulmonary disease. 3. Nasogastric tube extends into the stomach with distal tip projecting near the level of the gastroesophageal junction. Unclear with only AP projections tube extends back into the gastroesophageal junction were positioned more anteriorly in the body but superimposed over the gastroesophageal junction. Consider obtaining an oblique or crosstable lateral view for more definitive d etermination. Renal Ultrasound 07/27/24 14:10 IMPRESSION: 1. Normal kidneys without hydronephrosis. Chest CT 07/30/24 13:27 IMPRESSION: 1. Mild airspace opacities in right upper lobe, consistent with atelectasis versus pneumonia. 2. Airspace opacities in the lower lungs with volume loss, left worse than right, likely atelectasis. Chest X-Ray 08/01/24 06:20 Impression: Discoid left basilar atelectasis or scarring, otherwise clear lungs. Left-sided PICC line. Modified Barium Swallow 08/02/24 12:06 IMPRESSION: 1 episode of possible trace laryngeal penetration without aspiration. Please correlate with speech pathologist findings and specific feeding recommendations. Labs Labs: Laboratory Results - last 24 hr 08/04/24 05:30 WBC 17.9 H RBC 4.11 L Hgb 12.9 L Hct 38.1 L MCV 92.7 MCH 31.4 MCHC 33.9 RDW 12.6 Plt Count 241 MPV 9.7 Sodium 138 Potassium 3.1 L Chloride 105 Carbon Dioxide 26 Anion Gap 7 BUN 23 H Creatinine 0.95 Estim Creat Clear Calc 70 Estimated GFR > 60 Glucose 108 Calcium 8.3 L
[2024-08-04] MEDS: MONTELUKAST SODIUM 10 MG TABLET PO (21:56)
[2024-08-05] MEDS: CEFEPIME 2 GM/NS 50 ML 2 GM/50 ML BAG IVPB ×2 (02:32→15:06)
[2024-08-05] MEDS: CENTRAL LINE FLUSH 10 ML IV PUSH ×2 (05:41→15:16)
[2024-08-05] MEDS: CENTRAL LINE FLUSH 20 ML IV PUSH (05:41)
[2024-08-05 05:56] LABS: Hematocrit 35.5 % (42.0-52.0); Mean Corpuscular HGB Conc 33.8 g/dl (32-36); Mean Corpuscular Hemoglobin 31.5 pg (26-34); Mean Corpuscular Volume 93.2 fl (80-100); Mean Platelet Volume 9.7 fl (7.4-10.4); Platelet Count Result 253 k/mm3 (150-375); Red Blood Count 3.81 M/mm3 (4.6-6.20); Red Cell Distribution Width 12.4 % (11.5-14.5); White Blood Count 16.4 K/mm3 (4.5-10.0)
[2024-08-05 06:00] VITALS: BP 151/72; PULSE 96; RESP 18; TEMP 36.3; O2SAT 96
[2024-08-05 06:07] LABS: Anion Gap 7 mmol/L (4-12); Blood Urea Nitrogen 20 mg/dL (9-20); Calcium 8.2 mg/dL (8.4-10.2); Carbon Dioxide 25 mmol/L (22-30); Chloride 105 mmol/L (98-107); Estimated CRCL calculation 66 ml/min; Estimated Glomerular Filt Rate > 60; Glucose 90 mg/dL (65-110); Potassium 3.3 mmol/L (3.4-5.0); Sodium 137 mmol/L (137-145)
[2024-08-05] MEDS: FLUTICASONE/UMECLIDIN/VILANTER 100-62.5-25 MCG ELLIPTA 1 PUFF INHALATION (07:47)
[2024-08-05 07:50] VITALS: O2SAT 95
[2024-08-05 08:22] VITALS: BP 178/81; PULSE 101; RESP 16; TEMP 36.4; O2SAT 95
[2024-08-05 08:24] VITALS: PULSE 101; RESP 16; O2SAT 95
[2024-08-05] MEDS: amLODIPine BESYLATE 10 MG TABLET PO (08:24)
[2024-08-05] MEDS: PANTOPRAZOLE 40 MG TABLET PO (08:24)
[2024-08-05] MEDS: hydroCHLOROthiazide 12.5 MG CAPSULE PO (08:24)
[2024-08-05] MEDS: ENOXAPARIN 40 MG/0.4 ML SYRINGE SUB-Q (08:24)
[2024-08-05] MEDS: LORATADINE 10 MG TABLET FEED TUBE (08:24)
[2024-08-05] MEDS: METOPROLOL TARTRATE 25 MG TABLET PO (08:24)
[2024-08-05] MEDS: ATORVASTATIN 40 MG TABLET PO (08:24)
[2024-08-05 14:00] VITALS: BP 143/69; PULSE 90; RESP 18; O2SAT 97
--- NOTE | 2024-08-05 14:39 | P.DS_ITS ---
DS: Admitting Diagnosis Discharge Date 08/05/24 Admitting Diagnosis Acute respiratory failure DS: Discharge Diagnosis Discharge Diagnosis (1) Acute respiratory failure with hypoxia and hypercapnia: Code(s): J96.01 - Acute respiratory failure with hypoxia; J96.02 - Acute respiratory failure with hypercapnia Status: Acute Assessment and Plan: Acute hypoxic and hypercarbic respiratory failure which appears to be secondary to status asthmaticus. improving received ABX BiPAP pulm team on board. (2) Hypertension: Qualifiers: Hypertension type: primary hypertension Qualified Code(s): I10 - Essential (primary) hypertension Code(s): I10 - Essential (primary) hypertension Status: Chronic Assessment and Plan: p.o. metoprolol and hydrochlorothiazide P.r.n. labetalol (3) Allergic asthma: Qualifiers: Asthma complication type: with acute exacerbation Asthma persistence: persistent Asthma severity: severe Qualified Code(s): J45.51 - Severe persistent asthma with (acute) exacerbation Code(s): J45.909 - Unspecified asthma, uncomplicated Status: Acute Assessment and Plan: See above (4) COPD (chronic obstructive pulmonary disease): Qualifiers: COPD type: unspecified COPD Qualified Code(s): J44.9 - Chronic obstructive pulmonary disease, unspecified Code(s): J44.9 - Chronic obstructive pulmonary disease, unspecified Status: Acute Assessment and Plan: See above (5) Obstructive sleep apnea: Code(s): G47.33 - Obstructive sleep apnea (adult) (pediatric) Status: Acute Assessment and Plan: CPAP ordered for at night (6) Status asthmaticus: Code(s): J45.902 - Unspecified asthma with status asthmaticus Status: Acute Assessment and Plan: See above (7) GRACIELA (acute kidney injury): Code(s): N17.9 - Acute kidney failure, unspecified Status: Acute Assessment and Plan: Resolve (8) Pneumonia: Code(s): J18.9 - Pneumonia, unspecified organism Status: Acute Assessment and Plan: See above (9) Hypokalemia: Code(s): E87.6 - Hypokalemia Status: Acute Assessment and Plan: Replace with p.o. potassium Plan DVT prophylaxis -Lovenox Stress ulcer prophylaxis -Protonix Nutrition -pass swallow evaluation Code Status - Full Code PT OT on board Incentive spirometer Up in chair DS: Summary Hospital Course Hospital Course: Acute hypoxic and hypercarbic respiratory failure which appears to be secondary to status asthmaticus. Patient has history of allergic asthma and his presentation is consistent. Patient may also have mild underlying COPD considering his long history of smoking but has not been officially diagnosed. CT scan did not show any infiltrates and procalcitonin level was low suggesting against any pneumonia Currently intubated and on mechanical ventilation. Patient was heavily sedated. Patient was still asynchronous with ventilator and was given rocuronium and started on Nimbex infusion 07/27 patient's Nimbex infusion was discontinued and sedation was lowered. As the sedation wore off patient became more tachypneic with asynchrony with the ventilator. At that time patient had high peak pressures and bilateral wheezing. Patient was started back on sedation and had to BT paralyzed. 07/28 pause Nimbex infusion. Will try to wean off sedation and evaluate for weaning trial today. Hold further fluids 07/29 patient has been exhibiting dynamic airway obstruction. When sedated and paralyzed clearly his airway pressures are low, no wheezing. When paralytics are discontinued in sedation is lowered patient becomes tachypneic, asynchronous with ventilator leading to high peak pressures and wheezing on exam.. I have him on Precedex infusion for anxiolysis. I will again discontinue Nimbex infusion and then lower propofol. Depending on how he responds will evaluate for weaning trial. 07/30 sedation holiday was performed despite being on Precedex and low-dose of propofol patient was tachypneic with respiratory rate in 40s high tidal volume and drop in saturation. Weaning trial attempt was aborted and patient was placed back on sedation Chest x-ray reviewed and shows possible left lower lobe infiltrate. With increased respiratory secretion and low-grade fever this morning I obtained blood cultures and sputum culture which are pending. Procalcitonin level was still low but CT scan of the chest showed mild airspace opacities in right upper lobe. Patient was started on vancomycin cefepime empirically for pneumonia 07/31 I reviewed chest x-ray ABG and ventilator settings. I discussed the case with financial service professional. We will we suspect that patient failure to wean and doing poorly on trial could have been secondary to anxiety and agitation rather than respiratory considering there has been significant improvement wheezing and when patient is sedated his peak pressures were low and will lung exam does not exhibit any wheezing. We decided to extubate patient today without a trial. patient was extubated At this point patient is doing reasonable and is on Airvo at 45 L and 60% FiO2. His heart rate is in 100s. He does not have any significant wheezing on exam or stridor on neck auscultation. His blood pressure is slightly elevated. I will continue p.r.n. suctioning, Precedex for anxiolysis, p.r.n. Ativan for agitation, supplemental oxygen and monitor closely 08/01 in doing much better clinically. I will continue to wean FiO2 and flow on Airvo. Decreased 30% and 30 L. add Xanax p.r.n. for anxiety. Discontinue Solu- Medrol. Continue bronchodilators but only p.r.n. Add incentive spirometry Up in chair Contain Claritin and Singulair 08/02/24 Improved, Off oxygen saturation 93%. Continue singular, Trelegy. Continue cefepime for possible pneumonia. Pulmonary team on board 08/03/24 Off of oxygen, saturation 93%. Continue cefepime. pulmonary team on board 08/05/23 Off oxygen. Continue with montelukast, Trelegy. BiPAP p.r.n.. Cefepime. pulmonary team on board 08/05/24 Patient was seen and examined at bedside. He is feeling fine. Breathing improving. His weakness improving. Denies any chest pain, abd pain, nausea vomiting. Time Spent with Patient Time attestation: Total time spent providing and/or coordinating discharge services: Exam Narrative: General: Pt is alert awake and in no distress Lungs/Chest: Trachea central nol wheezing, Improved overall air movement, no wheezing Cardiac: RRR. Normal S1 S2. No murmurs Circulation: Pedal pulses are intact and symmetrical. Abdomen: Decreased bowel sounds. Obese. Soft. NT. ND. Extremities: No clubbing, cyanosis or edema. Warm : Garcia in place Neurologic: AO x3 , follows commands all 4 extremities. PERRL. Decreased range of motion of bilateral upper and lower extremity Const: General: in distress and uncomfortable Other: , male, ill-appearing, significant respiratory distress HENMT: Face/Nose/Sinus: Normal nares present Mouth: Yes dry mucous membranes Eyes: General: appearance normal, both eyes and all related structures Sclera: sclerae normal Pupils: Equal, round and reactive pupils present EOM: EOMs intact bilaterally Resp: Other: No crackles or rhonchi. Cardio: Rate: tachycardic Rhythm: regular rhythm Other: S1-S2 present without murmur, rub, ectopy GI: Other: Abdomen soft, nondistended, nontender. Normoactive bowel sounds in all quadrants. Skin: General skin exam: normal color and no rashes or lesions noted Wounds: no wounds Neuro: Cranial nerves: Yes Equal, round and reactive pupils present Speech: normal speech Motor exam (neuro): 5/5 motor strength present throughout and Abnormal motor strength present Sensory Exam: normal sensation Other: A&O x4. Extrem: General: normal to inspection Psych: Mental Status: mental status grossly normal Affect: normal affect Other: Good insight and judgment, pleasant DS: Data Data Completed and Pending Labs on day of discharge: Labs from last 24 hours 08/05/24 05:41 WBC 16.4 H RBC 3.81 L Hgb 12.0 L Hct 35.5 L MCV 93.2 MCH 31.5 MCHC 33.8 RDW 12.4 Plt Count 253 MPV 9.7 Sodium 137 Potassium 3.3 L Chloride 105 Carbon Dioxide 25 Anion Gap 7 BUN 20 Creatinine 1.01 Estim Creat Clear Calc 66 Estimated GFR > 60 Glucose 90 Calcium 8.2 L Discharge Plan Discharge Attending physician on discharge: Lucas Dowd Consulting providers: Maurilio Guerrier; Celeste,Garland Reaves Discharging Clinician: Lucas Dowd Patient Disposition: Inpatient Rehab Facility Activity: as tolerated Diet: heart healthy Discharge Instructions: Follow with PCP in 1 Follow-up with your financial service professional as scheduled Continue antibiotics for 3 more days and then discontinue PICC line Check your blood pressure and heart rate regularly and reports to PCP Patient Instructions: COPD (Chronic Obstructive Pulmonary Disease) (GEN), Ventilator (GEN) Patient Language: Indonesian Stand Alone Forms: General Discharge Information Follow-up/Referrals: Dilip Alfonso MD [Primary Care Provider] - Celeste,Garland Reaves MD [Non-Staff] - Discharge Medications: New alprazolam 0.5 mg Tablet 1 mg PO TID PRN (Reason: Anxiety) Qty: 20 0RF pantoprazole 40 mg Tablet,Delayed Release (Dr/Ec) 40 mg PO QAM Qty: 30 0RF acetaminophen [Nortemp] 160 mg/5 mL Suspension 650 mg PO Q6H PRN (Reason: Mild Pain (1-3) Or Fever) Qty: 30 0RF cefepime 2 gram Recon Soln 2 g IV Q12H Qty: 6 0RF Continued cetirizine [Zyrtec] 10 mg tablet 10 mg PO BID albuterol sulfate 90 mcg/actuation HFA aerosol inhaler 1 - 2 puff inhalation Q4-6H PRN (Reason: shortness of breath or wheezing) Qty: 8.5 11RF (DME) peak flow meter Device See Rx Instructions .ROUTE .MEDSUPPLY Qty: 1 0RF Rx Instructions: As directed Ocuvite Adult 50 Plus 250 mg (90 mg-160 mg) capsule 1 cap PO DAILY tadalafil [Cialis] 20 mg tablet 20 mg PO DAILY PRN (Reason: sexual activity) Qty: 30 4RF guaifenesin [Mucus Relief ER] 600 mg Tablet Extended Release 12hr 1,200 mg PO Q12HR Qty: 60 0RF Saline Mist 0.65 % Aerosol,[place] 1 spray intranasal Q6HR PRN (Reason: Congestion) Qty: 45 0RF (DME) CPAP See Rx Instructions .Route .MEDSUPPLY Qty: 1 0RF Rx Instructions: Resmed AirSense 11 CPAP at 11 cm H2O, size medium Resmed AirFit F20 full face mask, CPAP filters/tubing and heated humidity albuterol sulfate 2.5 mg /3 mL (0.083 %) solution for nebulization 2.5 mg inhalation Q6H PRN (Reason: shortness of breath or wheezing) 30 Days Qty: 180 1RF famotidine 40 mg tablet 40 mg PO DAILY Qty: 90 3RF hydrochlorothiazide 12.5 mg capsule 12.5 mg PO QAM Qty: 90 3RF amlodipine 10 mg tablet 10 mg PO . Q.a.m. Qty: 90 3RF atorvastatin 40 mg tablet 40 mg PO DAILY Qty: 90 3RF irbesartan 150 mg tablet 150 mg PO DAILY Qty: 90 3RF montelukast [Singulair] 10 mg tablet 10 mg PO QHS Qty: 90 3RF omeprazole 20 mg capsule,delayed release(DR/EC) 20 mg PO DAILY Qty: 90 3RF Trelegy Ellipta 100-62.5-25 mcg blister with device 1 inh inhalation DAILY Qty: 60 11RF Trelegy Ellipta 100-62.5-25 mcg blister with device 1 inh inhalation Q24H 30 Days Qty: 60 5RF Changed metoprolol tartrate 25 mg tablet 25 mg PO BID Qty: 90 3RF Date of admission: 07/25/24 16:42 Primary Care Provider: Dilip Alfonso Admitting Provider: Sumanth Villarreal Attending physician on admission: Lucas Dowd Condition: Critical Quality VTE Prophylaxis VTE prophylaxis: pharmacologic ordered
[2024-08-05] MEDS: POTASSIUM CHLORIDE 20 MEQ ER TABLET 40 MEQ PO (15:06)
== END 2024-08-05 17:39 | DRG 207 ==
LOC: ANHED 18:14 → ANHICU 18:28 → ANHIMU 08-01 16:46 → ANH2MED 08-02 12:55
PROVIDERS: Internal Medicine; Internal Medicine Pulmonary Disease; Student in an Organized Health Care Education/Training Program; Admitting Provider Internal Medicine; Emergency Provider Nurse Practitioner Family; PCP Family Medicine; Visit Provider Internal Medicine
DX: J45.51 Severe persistent asthma with (acute) exacerbation (principal); J18.9 Pneumonia, unspecified organism; J96.01 Acute respiratory failure with hypoxia; J96.02 Acute respiratory failure with hypercapnia; J44.1 Chronic obstructive pulmonary disease with (acute) exacerbation; N17.9 Acute kidney failure, unspecified; E87.6 Hypokalemia; E78.5 Hyperlipidemia, unspecified; G47.33 Obstructive sleep apnea (adult) (pediatric); I10 Essential (primary) hypertension; K21.9 Gastro-esophageal reflux disease without esophagitis; K58.9 Irritable bowel syndrome, unspecified; L50.9 Urticaria, unspecified; M17.11 Unilateral primary osteoarthritis, right knee; Z87.891 Personal history of nicotine dependence; Z99.89 Dependence on other enabling machines and devices; Z96.652 Presence of left artificial knee joint
CPT/HCPCS: 31500; 36415; 36569; 36600; 71045; 71250; 76775; 80048; 80053; 80202; 82375; 82550; 82570; 82803; 82805; 82948; 83050; 83735; 83880; 84100; 84145; 84300; 84478; 84484; 85018; 85025; 85027; 85380; 85610; 85730; 87040; 87070; 87205; 87633; 87637; 87641; 92610; 92611; 93005; 94002; 94003; 94640; 96374; 96375; 96376; 97110; 97116; 97161; 97166; 97530; 97535; 99291; A9270; C1751; J0360; J0456; J0692; J1100; J1650; J1815; J1938; J2060; J2250; J2470; J2704; J2919; J3010; J3370; J3475; J7030; J7120